=== PATIENT | male | born 1940 | race Caucasian/White ===

== ENCOUNTER → 2016-10-14 | Day surgery (SDC) | payer MEDICARE, BC ==
[2016-10-10 10:53] VITALS: BMI 32.7
[~2016-10-14] MED LIST: LACTATED RINGERS 1,000 ML IV SCH; LIDOCAINE 1% INJ 10MG/ML (20 ML MDV) ONE; PROPOFOL 10 MG/ML 20 ML VIAL IV ONE; SODIUM CHLORIDE 0.9% 1,000 ML IV SCH; SODIUM CHLORIDE 0.9% 500 ML IV ONE; fentaNYL (PF) 50 MCG/ML 2 ML AMP ONE
[2016-10-14 06:55] LABS: Glucose,Whole Blood 116 mg/dL (75-99)
[2016-10-14 07:51] VITALS: TEMP 98
[2016-10-14 08:15] LABS: Glucose,Whole Blood 123 mg/dL (75-99)
[2016-10-14 09:47] VITALS: PULSE 70; RESP 20
[2016-10-14 10:05] VITALS: BP 158/77
--- NOTE | 2016-10-14 16:51 | PCN ---
DATE OF PROCEDURE: 10/14/2016 PROCEDURE: Electrical cardioversion. INDICATION: Persistent atrial fibrillation, unresponsive to pharmacological efforts. Under the influence of an [id number] intravenous anesthetic agent with the attendance of the anesthesiologist, two synchronized shocks were delivered to the chest wall and anterior and posterior patches. First was 200 joules and second was 250 joules. Patient remained in atrial fibrillation and did not convert to sinus rhythm. He was hemodynamically stable, neurologically intact. This was unsuccessful electrical cardioversion. The results were discussed with the patient and his . He will be discharged later on today, and we will pursue rate control and anticoagulation. JEANNE
== END ==
LOC: CATHCVL 06:15
PROVIDERS: ATTEND Internal Medicine Interventional Cardiology
DX: I48.1 Persistent atrial fibrillation (principal); I25.10 Atherosclerotic heart disease of native coronary artery without angina pectoris; Z95.5 Presence of coronary angioplasty implant and graft; E78.00 Pure hypercholesterolemia, unspecified; I10 Essential (primary) hypertension; J44.9 Chronic obstructive pulmonary disease, unspecified; E11.9 Type 2 diabetes mellitus without complications; Z82.49 Family history of ischemic heart disease and other diseases of the circulatory system; Z79.01 Long term (current) use of anticoagulants; Z79.84 Long term (current) use of oral hypoglycemic drugs; Z79.82 Long term (current) use of aspirin; Z79.4 Long term (current) use of insulin; Z79.899 Other long term (current) drug therapy; Z87.891 Personal history of nicotine dependence; E66.9 Obesity, unspecified; Z68.31 Body mass index [BMI] 31.0-31.9, adult
CPT/HCPCS: 93005; 92960; J2001; J3010; J2704

== ENCOUNTER → 2016-11-07 | Outpatient (CLI) | payer MEDICARE, BC ==
--- NOTE | 2016-11-07 11:15 | XR ---
EXAMINATION TYPE: XR chest 2V DATE OF EXAM: 11/07/2016 COMPARISON: NONE HISTORY: Preoperative examination for back surgery. TECHNIQUE: Frontal and lateral views of the chest are obtained. FINDINGS: There is no focal air space opacity, pleural effusion, or pneumothorax seen. Linear platel mac subsegmental left basilar atelectasis versus pleural parenchymal scarring is seen. The cardiac si lhouette size is within normal limits. The osseous structures are intact. Mild degenerative change of the thoracic spine is noted. IMPRESSION: No acute cardiopulmonary process.
[2016-11-07 11:16] LABS: Appearance,Urine Clear (Clear); Bacteria,Urine Occasional /hpf; Basophils # (A) 0.1 k/uL (0-0.2); Basophils % (A) 1 %; Bilirubin,Urine Negative (Negative); CH 27.9; CHCM 32.3; Eosinophils # (A) 0.5 k/uL (0-0.7); Eosinophils % (A) 7 %; Glucose,Urine (UA) Negative (Negative); HCT 45.5 % (39.0-53.0); HDW 2.46; HGB 14.9 gm/dL (13.0-17.5); Ketones,Urine Negative (Negative); Leukocyte Esterase,Urine Small (Negative); Luc # (Auto) 0.22; Luc % (Auto) 3; Lymphocytes # (A) 1.9 k/uL (1.0-4.8); Lymphocytes % (A) 23 %; MCH 28.3 pg (25.0-35.0); MCHC 32.7 g/dL (31.0-37.0); MCV 86.5 fL (80.0-100.0); Mean Platelet Volume 7.1; Monocytes # (A) 0.5 k/uL (0-1.0); Monocytes % (A) 7 %; Mucus,Urine Rare /hpf; Neutrophils # (A) 4.8 k/uL (1.3-7.7); Neutrophils % (A) 60 %; Nitrite,Urine Negative (Negative); PH, Urine 6.5 (5.0-8.0); Particle Count 834; Protein,Urine Trace (Negative); RBC 5.26 m/uL (4.30-5.90); RBC,Urine 10 /hpf (0-5); RDW 13.6 % (11.5-15.5); Specific Gravity,Urine 1.018 (1.001-1.035); Squamous Epithelial Cell,Urine 2 /hpf (0-4); UA Billing (MACRO vs. MICRO) MICRO; Urobilinogen,Urine <2.0 mg/dL (<2.0); WBC (Perox) 8.61; WBC,Urine 14 /hpf (0-5)
[2016-11-07 11:33] LABS: INR 3.3 (<1.2); Partial Thromboplastin Time 30.9 sec (22.0-30.0); Prothrombin Time 31.7 sec (9.0-12.0)
[2016-11-07 11:48] LABS: Anion Gap 11 mmol/L; Blood Urea Nitrogen 24 mg/dL (9-20); Calcium 9.2 mg/dL (8.4-10.2); Carbon Dioxide 30 mmol/L (22-30); Chloride 97 mmol/L (98-107); Glucose 136 mg/dL (74-99); Non-African American GFR(MDRD) >60 (>60 ml/min/1.73 sqM); Potassium 3.6 mmol/L (3.5-5.1); Sodium 138 mmol/L (137-145)
== END | disposition home or self-care (01) ==
LOC: LABPAT 10:07
PROVIDERS: ATTEND Orthopaedic Surgery Orthopaedic Surgery of the Spine
DX: Z01.818 Encounter for other preprocedural examination (principal); M48.06 Spinal stenosis, lumbar region; M54.5 Low back pain; Z51.81 Encounter for therapeutic drug level monitoring; Z79.01 Long term (current) use of anticoagulants
CPT/HCPCS: 71020; 80048; 81001; 85025; 85610; 85730

== ENCOUNTER 2016-11-21 10:55 | Day surgery (SDC) | payer MEDICARE, BC ==
[2016-11-11 17:12] VITALS: BMI 32.7
[~2016-11-21 10:55] MED LIST changes: +BACITRACIN 50,000 UNIT, POLYMYXIN B 500,000 UNIT in SODIUM CHLORIDE 0.9% IRRIGATIO 1,00... IRRIGATION ONE; +DEXAMETHASONE SOD PHOSPHATE 10 MG/ML 1 ML VIAL IV ONE; -LACTATED RINGERS 1,000 ML IV SCH; +LIDOCAINE 1% 20 ML VIAL (10MG/ML) FOR IV START INTRADERMA PRN; -LIDOCAINE 1% INJ 10MG/ML (20 ML MDV) ONE; +MIDAZOLAM 2 MG/2 ML VIAL IV PRN; +ONDANSETRON 4 MG/2 ML VIAL IVP ONE; -PROPOFOL 10 MG/ML 20 ML VIAL IV ONE; +SCOPOLAMINE 1.5MG/72HR PATCH TRANSDERM ONE; -SODIUM CHLORIDE 0.9% 1,000 ML IV SCH; -SODIUM CHLORIDE 0.9% 500 ML IV ONE; +ceFAZolin 2 GM in SODIUM CHLORIDE 0.9% 100 ML IVPB ONE; -fentaNYL (PF) 50 MCG/ML 2 ML AMP ONE
[2016-11-21] MEDS: LACTATED RINGERS 1,000 ML IV SCH (11:40)
[2016-11-21 11:41] LABS: Glucose,Whole Blood 202 mg/dL (75-99)
[2016-11-21 11:53] LABS: INR 1.1 (<1.2); Prothrombin Time 11.3 sec (9.0-12.0)
[2016-11-21] MEDS ORDERED: NEOSTIGMINE 1 MG/ML 10 ML VIAL ONE (13:33)
[2016-11-21] MEDS ORDERED: THROMBIN (BOVINE) 5,000 UNIT VIAL TOPICAL ONE (13:33)
[2016-11-21] MEDS ORDERED: PROPOFOL 10 MG/ML 20 ML VIAL IV ONE (13:33)
[2016-11-21] MEDS ORDERED: GELATIN SPONGE,ABSORB (LARGE) 1 EACH SPONGE TOPICAL ONE (13:33)
[2016-11-21] MEDS ORDERED: BUPIVACAINE (PF) 0.5% 30 ML VIAL SQ ONE (13:33)
[2016-11-21] MEDS ORDERED: MORPHINE SULFATE 10 MG/ML SYRINGE ONE (13:33)
[2016-11-21] MEDS ORDERED: MIDAZOLAM 2 MG/2 ML VIAL ONE (13:33)
[2016-11-21] MEDS ORDERED: GLYCOPYRROLATE 0.2 MG/ML 2 ML VIAL ONE (13:33)
[2016-11-21] MEDS ORDERED: PHENYLEPHRINE-0.9% NACL SYG 1 MG/10 ML SYRINGE ONE (13:33)
[2016-11-21] MEDS ORDERED: LIDOCAINE 0.5% (PF) 5 MG/ML (50 ML SDV) SQ ONE (13:33)
[2016-11-21] MEDS ORDERED: ROCURONIUM BROMIDE 10 MG/ML 10 ML VIAL IV ONE (13:33)
[2016-11-21] MEDS ORDERED: ePHEDrine SULFATE/0.9% NACL/PF 50 MG/5 ML SYRINGE IV ONE (13:33)
[2016-11-21] MEDS ORDERED: LIDOCAINE 1% INJ 10MG/ML (20 ML MDV) ONE (13:33)
[2016-11-21] MEDS ORDERED: fentaNYL (PF) 50 MCG/ML 2 ML AMP ONE (13:33)
[2016-11-21] MEDS ORDERED: LACTATED RINGERS 1,000 ML IV ONE (14:45)
[2016-11-21] MEDS ORDERED: methylPREDNISolone ACETATE 80 MG/ML 1 ML VIAL MISCELLANE ONE (15:27)
[2016-11-21] MEDS ORDERED: BENZOCAINE/MENTHOL LOZENG 1 EACH LOZENGE MUCOUS MEM PRN (15:41)
[2016-11-21] MEDS ORDERED: MAGNESIUM HYDROXIDE 2,400 MG/10 ML CUP PO PRN (15:41)
[2016-11-21] MEDS ORDERED: HYDROmorphone 0.5 MG/0.5 ML SYRINGE IVP PRN (15:41)
[2016-11-21] MEDS ORDERED: HYDROcodone/APAP 5-325MG 1 EACH TAB PO PRN (15:42)
[2016-11-21] MEDS ORDERED: hydrOXYzine HCL 10 MG TAB PO PRN (15:44)
[2016-11-21] MEDS ORDERED: ALBUTEROL NEBULIZED 2.5 MG/3 ML INHALATION PRN (15:44)
[2016-11-21] MEDS ORDERED: IPRATROPIUM-ALBUTEROL 3 ML NEB INHALATION PRN (15:44)
[2016-11-21] MEDS ORDERED: INSULIN LISPRO (humaLOG) 300 UNIT/3 ML VIAL SQ PRN (15:44)
[2016-11-21] MEDS ORDERED: PANTOPRAZOLE 40 MG TABLET PO PRN (15:44)
--- NOTE | 2016-11-21 15:54 | P.OP ---
Date of Procedure: 11/21/16 Preoperative Diagnosis: Herniated nucleus pulposis L4 5, spinal stenosis L4 5, neurogenic claudication, lower extremity radiculopathy Postoperative Diagnosis: Same Anesthesia: GETA Pathology: none sent Condition: stable Disposition: PACU Description of Procedure: BRIEF OPERATIVE NOTE Preoperative Diagnosis: Spinal stenosis L4 5, herniated nucleus pulposis L4 5, neurogenic claudication, lower extremity radiculopathy Postoperative Diagnosis: Same Procedure: Laminectomy and decompression bilaterally L4 5 Discectomy for decompression L4 5 Use of fluoroscopic guidance Surgeon: Dr. Santiago Automation Technologist: Konstantin Romero is present throughout the entire the case persistence during positioning, dissection, exposure, visualization, and all crucial elements of the case as well as closure. Anesthesia: General anesthesia Estimated blood loss: Approximately 100 mL Complications: None apparent Components implanted: Paradigm Coflex interlaminar stabilization device 10 mm Disposition: To recovery room in good stable condition. OPERATIVE INDICATIONS The patient has been having issues in their lower back and lower extremities. He was having evidence of neurogenic claudication and spinal stenosis along with issues with lower extremity radiculopathy. He was found to have significant spinal stenosis at L4 5 with a herniated nucleus pulposis L4 5 which correlated well with his low back and lower extremity symptoms. The patient has been through conservative treatment. With his imaging the level of his stenosis and his propensity for the possibility of recurrent stenosis I felt that decompression with intralaminar stabilization would be a good benefit for him. We discussed various treatment options including surgery, and the patient wishes to proceed with surgery We discussed the risk, patient's alternatives and benefits of surgery including but not limited to, risk of bleeding risk of infection, risk of need for further surgery, risk of decreased , loss of motion, loss of function, nerve damage, paralysis, heart attack, blindness and . OPERATIVE SUMMARY After discussing all the risks, patient alternatives and benefits at length, the patient elected to proceed with surgical intervention, signed informed consent, and presented for their procedure. The patient was seen and examined in the preoperative holding area and the surgical site was marked. The patient was given antibiotics and brought to the operating room. The patient was sedated and intubated by anesthesia in standard fashion. The patient was positioned on to the operating room table in a prone position on the appropriate frame which was well-padded and well molded. We were careful to pad any bony prominences and pressure points. We were careful to maintain the patient's cervical spine and good neutral alignment and position throughout. The patient was prepped and draped in a normal standard fashion. An appropriate timeout and keystone protocol performed. We were able to proceed with the surgery. Fluoroscopy was utilized to establish the appropriate level at L4 5. The local wound area was infiltrated with local anesthetic. An incision was made at the midline longitudinally over the appropriate levels at L4 5. Dissection was taken down subcutaneously to the level of the fascia which was split midline. Dissection was taken over the lamina. Intraoperative fluoroscopy was taken which showed a marker at the appropriate level at L4 5. With the appropriate level positively confirmed, we were able to proceed with laminectomy. The wound was copiously irrigated and suctioned dry as had been done periodically throughout the case. I performed a laminectomy with a combination of curettes and a high-speed bur and Kerrison rongeurs. A small medial facetectomy was performed again further access. This was done bilaterally at L4 5. A partial foraminotomy was also performed on the right. Portions of the ligamentum flavum were taken down to expose the dura and traversing nerve root. I was able to mobilize the traversing nerve root and gain access to the disc space. Note was made of obvious compression from the disc. Protecting the soft tissue structures, a small annulotomy was established. I was able to perform discectomy and remove any extruded disc fragments and any loose fragments from within the disc itself. There is some disc desiccation noted. I tried to preserve the disc annulus that appeared stable. There were no further extruded fragments noted. There is no evidence of dural tear or leak. Good hemostasis maintained. The wound was copiously irrigated and suctioned dry. Good decompression and discectomy was noted. At this point further prepared the interspinous process and interlaminar space with a combination of curettes and a high-speed bur and Kerrison rongeurs. As able get good parallel alignment at the interspinous process space and interlaminar space. I used a trial spacer for the Coflex device and have good fit and fill with the appropriate size device at 10 mm. I had to shave down the spinous process at L4 to allow for appropriate positioning of the Coflex device. The device was prepared and then positioned and malleted in position with good alignment and good position and good bony purchase at the interlaminar space. The position was checked and found to be approximately 3-4 mm away from the dura without impingement on the dura itself. It was checked and found to be stable. Intraoperative C-arm was utilized to confirm the alignment and position at the appropriate levels. We were able to proceed with closure. The fascia was closed for a watertight closure. The subcuticular tissue was closed with absorbable suture. The wound was cleaned and dried and dressed with the appropriate dressing. The drapes were broken down. The patient was gently rolled back onto their hospital bed being careful to maintain their cervical spine and good neutral alignment and position. They were woken up by anesthesia, extubated, and brought to the recovery room in good stable condition. The patient will be admitted to the hospital for observation and for appropriate postoperative care, medical management and monitoring. We will continue to follow them closely about the postoperative course.
[2016-11-21 16:27] LABS: Glucose,Whole Blood 148 mg/dL (75-99)
[2016-11-21] MEDS: HYDROmorphone 1 MG/ML 1 ML SYRINGE IVP PRN ×2 (16:33→17:29)
--- NOTE | 2016-11-21 17:45 | FL ---
EXAMINATION TYPE: FL guidance operating room, XR lumbar spine 2 or 3V DATE OF EXAM: 11/21/2016 COMPARISON: NONE HISTORY: 76-year-old male lumbar laminectomy FINDINGS: Images obtained intraoperatively during laminectomy with some metal hardware placed along the posteri or elements at L4-L5. FLUOROSCOPY Fluoroscopy time of 9 seconds was used during lumbar laminectomy. 5 image/s document/s the procedure . IMPRESSION: Intraoperative fluoroscopy as above.
[2016-11-21] MEDS: SODIUM CHLORIDE 0.9% 1,000 ML IV SCH (20:47)
[2016-11-21] MEDS: metFORMIN 500 MG TAB PO SCH (20:56)
[2016-11-21] MEDS: METHADONE 5 MG TAB PO SCH (20:57)
[2016-11-21] MEDS: METOPROLOL TARTRATE 25 MG TAB PO SCH (20:57)
[2016-11-21] MEDS: GABAPENTIN 100 MG CAP PO SCH (20:58)
[2016-11-21] MEDS: ceFAZolin 2 GM in SODIUM CHLORIDE 0.9% 100 ML IVPB SCH (20:59)
[2016-11-21] MEDS ORDERED: LISINOPRIL 20 MG TAB PO SCH (21:00)
[2016-11-21] MEDS ORDERED: amLODIPine 10 MG TAB PO SCH (21:00)
[2016-11-21] MEDS ORDERED: CHLORTHALIDONE 25 MG TAB PO SCH (21:00)
[2016-11-21] MEDS ORDERED: ASPIRIN 81 MG PO SCH (21:00)
[2016-11-21] MEDS ORDERED: MONTELUKAST 10 MG TAB PO SCH (21:00)
[2016-11-21] MEDS ORDERED: ATORVASTATIN 10 MG TAB PO SCH (21:00)
[2016-11-21] MEDS: HYDROcodone/APAP 5-325MG 1 EACH TAB PO PRN (22:28)
[2016-11-22] MEDS: ceFAZolin 2 GM in SODIUM CHLORIDE 0.9% 100 ML IVPB SCH (04:21)
[2016-11-22] MEDS: HYDROcodone/APAP 5-325MG 1 EACH TAB PO PRN ×2 (04:24→09:00)
[2016-11-22] MEDS: SODIUM CHLORIDE 0.9% 1,000 ML IV SCH (05:34)
[2016-11-22] MEDS: LACTATED RINGERS 1,000 ML IV SCH (05:35)
[2016-11-22 07:12] LABS: Glucose,Whole Blood 204 mg/dL (75-99)
[2016-11-22 08:47] LABS: Glucose,Whole Blood 278 mg/dL (75-99)
--- NOTE | 2016-11-22 08:51 | P.DS ---
Providers Date of admission: 11/21/2016 Expected date of discharge: 11/22/16 Attending physician: Carolina Santiago Consults: 11/21/16 15:42 Consult Physician Routine Consulting Provider: Ephraim Underwood Consult Reason/Comments: Medical management Do you want consulting provider notified?: Yes Primary care physician: Yosvany Escalona - Discharge Diagnosis(es) (1) Lumbar spinal stenosis Current Visit: Yes Status: Acute (2) Neurogenic claudication Current Visit: Yes Status: Acute (3) Radiculopathy with lower extremity symptoms Current Visit: Yes Status: Acute (4) Herniated nucleus pulposus, L4-5 Current Visit: Yes Status: Acute Hospital Course: This is a pleasant 76-year-old male who presented with L4-5 herniated nucleus pulposus and spinal stenosis with neurogenic claudication and lower extremity radiculopathy who failed outpatient conservative therapy. He was admitted for an L4-5 lateral laminectomy and decompression with discectomy and placement of interlaminar stabilization device. Patient was experiencing significant right lower extremity radiculopathy prior to surgical intervention. He states his right lower extremity leg pain has already significantly improved. He is able to stand at the bedside without difficulty. He is moving well in the bed. He is waiting for therapy to help work with him to increase his mobility today. He feels he is recovering quite well postsurgically and feels he is ready for discharge. He has some soreness at the surgical site and states his back pain has been controlled. The patient tolerated the procedure well and did well postoperatively. Condition on day of discharge stable. Patient will be discharged home. Patient was cleared preoperatively for surgery by Dr. Escalona. Patient currently denies any nausea, vomiting, fever, or chills. Patient is eating and voiding freely without difficulty. Patient may shower Tegaderm dressing intact. Patient may remove Tegaderm dressing in 3 days and shower without a dressing at that time. Patient should keep Steri-Strips intact and allow them to fall off naturally. Patient should refrain from driving until at least after their first follow-up appointment in the office. Patient should avoid excessive bending, lifting, and twisting; no lifting greater than 10 pounds. Patient is currently under a pain contract and may continue with methadone as previously prescribed. He may resume all other home medications as per he prescribed. Physical Exam on day of discharge: Patient is awake, alert, and oriented 3 Vital signs stable Good chest excursion with deep inspiration and expiration Abdomen soft nontender No signs or symptoms of DVT; no calf pain Pneumatic cuffs intact bilateral lower extremities Extensor hallucis longus, plantarflexion, and dorsiflexion positive sustained bilateral lower extremities Pain with palpation around the surgical site Incision is dry and intact; no erythema, purulence, or signs of infection; no active drainage Tegaderm dressing and non-stick Telfa intact; Dressing is removed replaced with Tegaderm and nonstick Telfa during physical examination Procedures: L4-5 laminectomy and decompression with discectomy and placement of interlaminar device Patient Condition at Discharge: Stable Plan - Discharge Summary New Discharge Prescriptions: No Action Warfarin [Coumadin] 7.5 mg PO MOTHSA metFORMIN HCL 1,000 mg PO BID Aspirin 162 mg PO HS INSULIN LISPRO (humaLOG) [humaLOG (formulary)] 10 units SQ PCHS PRN PRN Reason: Blood Sugar > 200 hydrOXYzine HCL [Atarax] 10 mg PO BID PRN PRN Reason: Itching Lovastatin [Mevacor] 20 mg PO HS Methadone [Dolophine] 5 mg PO TID Montelukast Sodium [Singulair] 10 mg PO HS Omeprazole [PriLOSEC] 20 mg PO W/SUPPER PRN PRN Reason: GERD Insulin Degludec [Tresiba Flextouch U-100] 28 unit SQ QAM Gabapentin [Neurontin] 200 mg PO BID Warfarin [Coumadin] 5 mg PO SUTUWEFR Chlorthalidone 25 mg PO HS amLODIPine BESYLATE [Norvasc] 10 mg PO HS Lisinopril [Zestril] 40 mg PO HS Vitamin E (Dl,Tocopheryl Acet) [Vitamin E] 400 unit PO 1200 Vits A,C,E/Lutein/Minerals [Ocuvite with Lutein Tablet] 1 each PO DAILY@1200 Multivitamins, Thera [Multivitamin (formulary)] 1 tab PO DAILY Sertraline [Zoloft] 100 mg PO DAILY Albuterol Sulfate [Proair Hfa] 2 puff INHALATION BID PRN PRN Reason: sob Ipratropium-Albuterol Nebulize [Duoneb 0.5 mg-3 mg/3 ml Soln] 1 applic INHALATION DAILY PRN PRN Reason: sob Cyanocobalamin (Vitamin B-12) [Vitamin B-12] 1,200 mcg PO DAILY Metoprolol Tartrate [Lopressor] 75 mg PO BID Liraglutide [Victoza 2-Garry] 1.8 mg SQ DAILY Discharge Medication List Aspirin 162 mg PO HS 11/26/13 [History] INSULIN LISPRO (humaLOG) [humaLOG (formulary)] 10 units SQ PCHS PRN 11/26/13 [ History] Lovastatin [Mevacor] 20 mg PO HS 11/26/13 [History] Methadone [Dolophine] 5 mg PO TID 11/26/13 [History] Montelukast Sodium [Singulair] 10 mg PO HS 11/26/13 [History] Warfarin [Coumadin] 7.5 mg PO MOTHSA 11/26/13 [History] hydrOXYzine HCL [Atarax] 10 mg PO BID PRN 11/26/13 [History] metFORMIN HCL 1,000 mg PO BID 11/26/13 [History] Albuterol Sulfate [Proair Hfa] 2 puff INHALATION BID PRN 10/10/16 [History] Chlorthalidone 25 mg PO HS 10/10/16 [History] Gabapentin [Neurontin] 200 mg PO BID 10/10/16 [History] Insulin Degludec [Tresiba Flextouch U-100] 28 unit SQ QAM 10/10/16 [History] Ipratropium-Albuterol Nebulize [Duoneb 0.5 mg-3 mg/3 ml Soln] 1 applic INHALATION DAILY PRN 10/10/16 [History] Lisinopril [Zestril] 40 mg PO HS 10/10/16 [History] Multivitamins, Thera [Multivitamin (formulary)] 1 tab PO DAILY 10/10/16 [History ] Omeprazole [PriLOSEC] 20 mg PO W/SUPPER PRN 10/10/16 [History] Sertraline [Zoloft] 100 mg PO DAILY 10/10/16 [History] Vitamin E (Dl,Tocopheryl Acet) [Vitamin E] 400 unit PO 1200 10/10/16 [History] Vits A,C,E/Lutein/Minerals [Ocuvite with Lutein Tablet] 1 each PO DAILY@1200 [History] Warfarin [Coumadin] 5 mg PO SUTUWEFR 10/10/16 [History] amLODIPine BESYLATE [Norvasc] 10 mg PO HS 10/10/16 [History] Cyanocobalamin (Vitamin B-12) [Vitamin B-12] 1,200 mcg PO DAILY 11/11/16 [ History] Liraglutide [Victoza 2-Garry] 1.8 mg SQ DAILY 11/11/16 [History] Metoprolol Tartrate [Lopressor] 75 mg PO BID 11/11/16 [History] Follow up Appointment(s)/Referral(s): Carolina Santiago DO [Doctor of Osteopathic Medicine] - 2 Weeks (Patient may follow-up with Konstantin Rosas PA-C or Dr. Fitz Santiago at [facility] in 2-3 weeks following discharge. ) Activity/Diet/Wound Care/Special Instructions: 1. Patient may shower with Tegaderm dressing intact. 2. Patient may remove Tegaderm dressing in 3 days and shower without a dressing at that time. 3. Patient should keep Steri-Strips intact and allow them to fall off naturally. 4. Patient should refrain from driving until at least after their first follow- up appointment in the office. 5. Patient should avoid excessive bending, twisting, and lifting; no lifting greater than 10 pounds 6. Take medications as prescribed 7. Do not soak in tub Discharge Disposition: HOME SELF-CARE
[2016-11-22] MEDS ORDERED: SERTRALINE 100 MG TAB PO SCH (09:00)
[2016-11-22] MEDS ORDERED: NON-FORMULARY DRUG (Liraglutide [Victoza 2-Pak] 1.8 MG) SQ SCH (09:00)
[2016-11-22] MEDS ORDERED: INSULIN DETEMIR 100 UNIT/ML 10 ML VIAL SQ SCH (09:00)
[2016-11-22] MEDS ORDERED: SENNOSIDES-DOCUSATE SODIUM 1 EACH TAB PO SCH (09:00)
[2016-11-22] MEDS: GABAPENTIN 100 MG CAP PO SCH (09:17)
[2016-11-22] MEDS: metFORMIN 500 MG TAB PO SCH (09:18)
[2016-11-22] MEDS: METHADONE 5 MG TAB PO SCH (09:21)
[2016-11-22] MEDS: METOPROLOL TARTRATE 25 MG TAB PO SCH (09:25)
[2016-11-22 11:32] LABS: Glucose,Whole Blood 278 mg/dL (75-99)
[2016-11-22 11:34] VITALS: BP 112/70; PULSE 76; RESP 17; TEMP 97.8
[2016-11-22] MEDS ORDERED: VITAMIN E (DL,TOCOPHERYL ACET) 400 UNIT CAP PO SCH (12:00)
[2016-11-22] MEDS ORDERED: MULTIVITAMINS, THERA 1 EACH TAB PO SCH (12:00)
[2016-11-22] MEDS ORDERED: CYANOCOBALAMIN 500 MCG TAB PO SCH (12:00)
[2016-11-22] MEDS ORDERED: VIT A,C & E-LUTEIN-MINERALS 1 EACH TAB PO SCH (12:00)
[2016-11-22] MEDS ORDERED: WARFARIN 5 MG TAB PO SCH (18:00)
[2016-11-24] MEDS ORDERED: WARFARIN 7.5 MG TAB PO SCH (18:00)
== END 2016-11-22 13:15 | disposition home or self-care (01) ==
LOC: OR 10:55 → 3SUR 18:28 → OR 11-22 13:15
PROVIDERS: ATTEND Orthopaedic Surgery Orthopaedic Surgery of the Spine
DX: M51.16 Intervertebral disc disorders with radiculopathy, lumbar region (principal); M48.06 Spinal stenosis, lumbar region; I10 Essential (primary) hypertension; E78.5 Hyperlipidemia, unspecified; E11.9 Type 2 diabetes mellitus without complications; Z79.84 Long term (current) use of oral hypoglycemic drugs; Z79.4 Long term (current) use of insulin; Z95.5 Presence of coronary angioplasty implant and graft; Z87.891 Personal history of nicotine dependence; Z79.2 Long term (current) use of antibiotics; Z79.01 Long term (current) use of anticoagulants; Z79.899 Other long term (current) drug therapy; Z88.2 Allergy status to sulfonamides
CPT/HCPCS: 63047; 97161; 85610; 72100; C1713; J2250; J1040; J2710; J2270; J0690 ×2; J2405; J2001 ×2; J3010; J1170; S0109 ×2; J2370; J2704; 86850; 86900; 86901

== ENCOUNTER 2017-07-08 12:38 | Inpatient (IN) | payer MEDICARE, BC ==
[2017-07-08] MEDS ORDERED: IPRATROPIUM-ALBUTEROL 3 ML NEB INHALATION STA (13:12)
[2017-07-08] MEDS ORDERED: SODIUM CHLORIDE 0.9% 1,000 ML IV STA (13:12)
[2017-07-08] MEDS ORDERED: methylPREDNISolone SOD SUCCI 125 MG/2 ML VIAL IV STA (13:12)
--- NOTE | 2017-07-08 13:21 | ED ---
SOB HPI - General Chief Complaint: Shortness of Breath Stated Complaint: SOB Time Seen by Provider: 07/08/17 13:00 Source: patient, family, RN notes reviewed Mode of arrival: wheelchair Limitations: no limitations - History of Present Illness Initial Comments: This is a 76-year-old male with a history of asthma who is brought in because of shortness of breath he has been on antibiotics for sinus infection since eighth of this month he's had a cough with dark brown phlegm he is getting worse not better. He was seen at the outpatient clinic today and sent here for further evaluation. He denies any fevers chills or sweats but was noted be febrile when he arrived. He denies any chest pain sore throat earaches rhinorrhea. MD Complaint: shortness of breath - Related Data Home Medications Medication Instructions Recorded Confirmed Aspirin 162 mg PO HS 11/26/13 07/08/17 INSULIN LISPRO (humaLOG) [humaLOG] 10 units SQ PC-TID 11/26/13 07/08/17 Lovastatin [Mevacor] 20 mg PO HS 11/26/13 07/08/17 Methadone [Dolophine] 5 mg PO Q8H 11/26/13 07/08/17 Montelukast Sodium [Singulair] 10 mg PO HS 11/26/13 07/08/17 hydrOXYzine HCL [Atarax] 10 mg PO TID 11/26/13 07/08/17 metFORMIN HCL 1,000 mg PO BID 11/26/13 07/08/17 Ipratropium-Albuterol Nebulize 3 ml INHALATION RT-TID PRN 10/10/16 07/08/17 [Duoneb 0.5 mg-3 mg/3 ml Soln] Multivitamins, Thera [Multivitamin 1 tab PO DAILY 10/10/16 07/08/17 (formulary)] Omeprazole [PriLOSEC] 20 mg PO BID 10/10/16 07/08/17 Sertraline [Zoloft] 100 mg PO DAILY 10/10/16 07/08/17 Vitamin E (Dl,Tocopheryl Acet) 400 unit PO 1200 10/10/16 07/08/17 [Vitamin E] Vits A,C,E/Lutein/Minerals 1 tab PO DAILY 10/10/16 07/08/17 [Ocuvite with Lutein Tablet] amLODIPine BESYLATE [Norvasc] 5 mg PO HS 10/10/16 07/08/17 Cyanocobalamin (Vitamin B-12) 1,000 mcg PO DAILY 11/11/16 07/08/17 [Vitamin B-12] Metoprolol Tartrate [Lopressor] 50 mg PO BID 11/11/16 07/08/17 Amoxicillin 875 mg PO BID 07/08/17 07/08/17 Estazolam 1 mg PO DAILY PRN 07/08/17 07/08/17 Fluticasone Nasal [place] [Flonase 2 spray EA NOSTRIL DAILY 07/08/17 07/08/17 Nasal [place]] Insulin Glargine,Hum.rec.anlog 30 unit SQ DAILY 07/08/17 07/08/17 [Toujeo Solostar] Liraglutide [Victoza 2-Garry] 0.6 mg SQ DAILY 07/08/17 07/08/17 Lisinopril 40 mg PO DAILY 07/08/17 07/08/17 Metoprolol Tartrate [Lopressor] 25 mg PO BID 07/08/17 07/08/17 Nitroglycerin Sl Tabs [Nitrostat] 0.4 mg SUBLINGUAL Q5M PRN 07/08/17 07/08/17 Temazepam [Restoril] 15 mg PO HS 07/08/17 07/08/17 Testosterone Cypionate 200 mg IM Q14D 07/08/17 07/08/17 [Depo-Testosterone] Triamcinolone 0.1% Cream [Kenalog] 1 applicatio TOPICAL TID PRN 07/08/17 Warfarin Sodium [Coumadin] 4 mg PO DAILY 07/08/17 07/08/17 hydrALAZINE HCL [Apresoline] 25 mg PO BID 07/08/17 07/08/17 Allergies Allergy/AdvReac Type Severity Reaction Status Date / Time Sulfa (Sulfonamide Allergy Rash/Hives Verified 07/08/17 13:55 Antibiotics) Review of Systems ROS Statement: Those systems with pertinent positive or pertinent negative responses have been documented in the HPI. ROS Other: All systems not noted in ROS Statement are negative. Past Medical History Past Medical History: Atrial Fibrillation, Asthma, CVA/TIA, Diabetes Mellitus, Eye Disorder, Fibromyalgia, Hyperlipidemia, Hypertension, Musculoskeletal Disorder, Pneumonia Additional Past Medical History / Comment(s): Hiatal Hernia. Glaucoma. Rt sided weakness from stroke (2008). HERNIATED DISC, BACK PAIN. NEUROPATHY FEET. CARDIOVERSION 10/14/16 UNSUCCESSFUL. History of Any Multi-Drug Resistant Organisms: None Reported Past Surgical History: Heart Catheterization With Stent, Orthopedic Surgery Additional Past Surgical History / Comment(s): nasal/sinus surgery, rt elbow, cataracts. CARDIOVERSION 10/14/16. Past Anesthesia/Blood Transfusion Reactions: No Reported Reaction Date of Last Stent Placement:: 2001 Past Psychological History: Depression Smoking Status: Former smoker Past Alcohol Use History: None Reported Past Drug Use History: None Reported - Past Family History Mother Family Medical History: No Reported History Father Family Medical History: Cancer General Exam - General Exam Comments Initial Comments: This is a well-developed well-nourished awake alert male he is somewhat slow to respond this seems be residual from his stroke. Limitations: no limitations General appearance: alert Head exam: Present: atraumatic, normocephalic, normal inspection Eye exam: Present: normal appearance, PERRL, EOMI. Absent: scleral icterus, conjunctival injection, periorbital swelling ENT exam: Present: normal exam, mucous membranes moist Neck exam: Present: normal inspection. Absent: tenderness, meningismus, lymphadenopathy Respiratory exam: Present: decreased breath sounds, other (Scattered wheezes). Absent: respiratory distress, wheezes, rales, rhonchi, stridor Cardiovascular Exam: Present: tachycardia, irregular rhythm. Absent: systolic murmur, diastolic murmur, rubs, gallop, clicks GI/Abdominal exam: Present: soft, normal bowel sounds. Absent: distended, tenderness, guarding, rebound, rigid Extremities exam: Present: normal inspection, full ROM, normal capillary refill. Absent: tenderness, pedal edema, joint swelling, calf tenderness Back exam: Present: other (Mild kyphosis) Neurological exam: Present: alert, oriented X3, CN II-XII intact Psychiatric exam: Present: normal affect, normal mood Skin exam: Present: warm, intact, normal color, diaphoretic. Absent: rash Course Vital Signs 07/08/17 07/08/17 07/08/17 12:54 12:57 13:55 Temperature 98.6 F Pulse Rate 106 H 120 H Respiratory 18 24 Rate Blood Pressure 164/72 O2 Sat by Pulse 94 L Oximetry 07/08/17 07/08/17 07/08/17 13:57 14:04 14:20 Temperature 100.9 F H Pulse Rate 119 H 121 H Respiratory 22 Rate Blood Pressure 163/100 O2 Sat by Pulse 96 Oximetry 07/08/17 15:35 Temperature 98.7 F Pulse Rate 121 H Respiratory 20 Rate Blood Pressure O2 Sat by Pulse 97 Oximetry - Reevaluation(s) Reevaluation #1: 07/08/17 15:44 Reevaluation patient reveals some improvement in his breathing. Reevaluation #2: 07/08/17 15:44 I did discuss findings with patient family members. He does demonstrate evidence of pleural effusion and congestive heart failure. He also has febrile illness. Medical Decision Making - Medical Decision Making I did a long discussion with patient family regarding findings I did discuss case with Dr. Underwood patient will be admitted he will be placed on IV antibiotics in addition to treatment for congestive heart failure. There is elevated troponin also cardiology will be consulted - Lab Data Result diagrams: 07/08/17 13:30 07/08/17 13:30 Lab Results 07/08/17 07/08/17 07/08/17 Range/Units 13:30 13:30 13:30 WBC 10.2 (3.8-10.6) k/uL RBC 5.07 (4.30-5.90) m/uL Hgb 13.3 (13.0-17.5) gm/dL Hct 43.2 (39.0-53.0) % MCV 85.3 (80.0-100.0) fL MCH 26.3 (25.0-35.0) pg MCHC 30.9 L (31.0-37.0) g/dL RDW 13.5 (11.5-15.5) % Plt Count 309 (150-450) k/uL Neutrophils % 82 % Lymphocytes % 7 % Monocytes % 9 % Eosinophils % 1 % Basophils % 0 % Neutrophils # 8.4 H (1.3-7.7) k/uL Lymphocytes # 0.8 L (1.0-4.8) k/uL Monocytes # 0.9 (0-1.0) k/uL Eosinophils # 0.1 (0-0.7) k/uL Basophils # 0.0 (0-0.2) k/uL Hypochromasia Slight PT (9.0-12.0) sec INR (<1.2) APTT (22.0-30.0) sec Sodium 138 (137-145) mmol/L Potassium 3.8 (3.5-5.1) mmol/L Chloride 99 (98-107) mmol/L Carbon Dioxide 26 (22-30) mmol/L Anion Gap 13 mmol/L BUN 17 (9-20) mg/dL Creatinine 0.74 (0.66-1.25) mg/dL Est GFR (CKD-EPI)AfAm >90 (>60 ml/min/1.73 sqM) Est GFR (CKD-EPI)NonAf >90 (>60 ml/min/1.73 sqM) Glucose 280 H (74-99) mg/dL Plasma Lactic Acid Alan (0.7-2.0) mmol/L Calcium 8.9 (8.4-10.2) mg/dL Magnesium 1.6 (1.6-2.3) mg/dL Total Bilirubin 0.9 (0.2-1.3) mg/dL AST 30 (17-59) U/L ALT 33 (21-72) U/L Alkaline Phosphatase 76 (38-126) U/L Total Creatine Kinase 157 (55-170) U/L CK-MB (CK-2) 7.6 H* (0.0-2.4) ng/mL CK-MB (CK-2) Rel Index 4.8 Troponin I 1.050 H* (0.000-0.034) ng/mL NT-Pro-B Natriuret Pep pg/mL Total Protein 6.3 (6.3-8.2) g/dL Albumin 3.5 (3.5-5.0) g/dL Influenza Type A RNA (Not Detectd) Influenza Type B (PCR) (Not Detectd) 07/08/17 07/08/17 07/08/17 Range/Units 13:30 13:30 13:30 WBC (3.8-10.6) k/uL RBC (4.30-5.90) m/uL Hgb (13.0-17.5) gm/dL Hct (39.0-53.0) % MCV (80.0-100.0) fL MCH (25.0-35.0) pg MCHC (31.0-37.0) g/dL RDW (11.5-15.5) % Plt Count (150-450) k/uL Neutrophils % % Lymphocytes % % Monocytes % % Eosinophils % % Basophils % % Neutrophils # (1.3-7.7) k/uL Lymphocytes # (1.0-4.8) k/uL Monocytes # (0-1.0) k/uL Eosinophils # (0-0.7) k/uL Basophils # (0-0.2) k/uL Hypochromasia PT 39.3 H (9.0-12.0) sec INR 4.4 H (<1.2) APTT 40.2 H (22.0-30.0) sec Sodium (137-145) mmol/L Potassium (3.5-5.1) mmol/L Chloride (98-107) mmol/L Carbon Dioxide (22-30) mmol/L Anion Gap mmol/L BUN (9-20) mg/dL Creatinine (0.66-1.25) mg/dL Est GFR (CKD-EPI)AfAm (>60 ml/min/1.73 sqM) Est GFR (CKD-EPI)NonAf (>60 ml/min/1.73 sqM) Glucose (74-99) mg/dL Plasma Lactic Acid Alan 2.8 H* (0.7-2.0) mmol/L Calcium (8.4-10.2) mg/dL Magnesium (1.6-2.3) mg/dL Total Bilirubin (0.2-1.3) mg/dL AST (17-59) U/L ALT (21-72) U/L Alkaline Phosphatase (38-126) U/L Total Creatine Kinase (55-170) U/L CK-MB (CK-2) (0.0-2.4) ng/mL CK-MB (CK-2) Rel Index Troponin I (0.000-0.034) ng/mL NT-Pro-B Natriuret Pep 7420 pg/mL Total Protein (6.3-8.2) g/dL Albumin (3.5-5.0) g/dL Influenza Type A RNA (Not Detectd) Influenza Type B (PCR) (Not Detectd) 05/12/18 Range/Units 13:55 WBC (3.8-10.6) k/uL RBC (4.30-5.90) m/uL Hgb (13.0-17.5) gm/dL Hct (39.0-53.0) % MCV (80.0-100.0) fL MCH (25.0-35.0) pg MCHC (31.0-37.0) g/dL RDW (11.5-15.5) % Plt Count (150-450) k/uL Neutrophils % % Lymphocytes % % Monocytes % % Eosinophils % % Basophils % % Neutrophils # (1.3-7.7) k/uL Lymphocytes # (1.0-4.8) k/uL Monocytes # (0-1.0) k/uL Eosinophils # (0-0.7) k/uL Basophils # (0-0.2) k/uL Hypochromasia PT (9.0-12.0) sec INR (<1.2) APTT (22.0-30.0) sec Sodium (137-145) mmol/L Potassium (3.5-5.1) mmol/L Chloride (98-107) mmol/L Carbon Dioxide (22-30) mmol/L Anion Gap mmol/L BUN (9-20) mg/dL Creatinine (0.66-1.25) mg/dL Est GFR (CKD-EPI)AfAm (>60 ml/min/1.73 sqM) Est GFR (CKD-EPI)NonAf (>60 ml/min/1.73 sqM) Glucose (74-99) mg/dL Plasma Lactic Acid Alan (0.7-2.0) mmol/L Calcium (8.4-10.2) mg/dL Magnesium (1.6-2.3) mg/dL Total Bilirubin (0.2-1.3) mg/dL AST (17-59) U/L ALT (21-72) U/L Alkaline Phosphatase (38-126) U/L Total Creatine Kinase (55-170) U/L CK-MB (CK-2) (0.0-2.4) ng/mL CK-MB (CK-2) Rel Index Troponin I (0.000-0.034) ng/mL NT-Pro-B Natriuret Pep pg/mL Total Protein (6.3-8.2) g/dL Albumin (3.5-5.0) g/dL Influenza Type A RNA Not Detected (Not Detectd) Influenza Type B (PCR) Not Detected (Not Detectd) - EKG Data -: EKG Interpreted by Me (Atrial fibrillation rate of 138 QRS duration 106 QT since QTC of 300/454 le) - Radiology Data Radiology results: report reviewed (I did review the imaging is consistent with CHF and pleural effusion.), image reviewed Critical Care Time Critical Care Time: Yes Critical Care Time: 37 is a critical care time which includes monitoring the EMS run and discussed with paramedics history physical labs x-rays frequent reevaluation as the patient discussed with patient family discussion with the main physician documentation of the above as well as admission orders. Disposition Clinical Impression: Congestive heart failure, Acute pulmonary edema, Pleural effusion, Non-STEMI ( non-ST elevated myocardial infarction), Acute exacerbation of chronic obstructive airways disease, Rapid atrial fibrillation Disposition: ADMITTED IP TO THIS HOSP Condition: Stable Referrals: Yosvany Escalona MD [Primary Care Provider] - 1-2 days
[2017-07-08 13:42] LABS: Basophils % (A) 0 %; Eosinophils # (A) 0.1 k/uL (0-0.7); Eosinophils % (A) 1 %; HCT 43.2 % (39.0-53.0); HGB 13.3 gm/dL (13.0-17.5); Hypochromasia Slight; Lymphocytes # (A) 0.8 k/uL (1.0-4.8); Lymphocytes % (A) 7 %; MCH 26.3 pg (25.0-35.0); MCHC 30.9 g/dL (31.0-37.0); MCV 85.3 fL (80.0-100.0); Mean Platelet Volume 8.1; Monocytes # (A) 0.9 k/uL (0-1.0); Monocytes % (A) 9 %; Neutrophils # (A) 8.4 k/uL (1.3-7.7); Neutrophils % (A) 82 %; Platelet Count 309 k/uL (150-450); RBC 5.07 m/uL (4.30-5.90); RDW 13.5 % (11.5-15.5); WBC 10.2 k/uL (3.8-10.6)
[2017-07-08 13:51] LABS: INR 4.4 (<1.2); Partial Thromboplastin Time 40.2 sec (22.0-30.0); Prothrombin Time 39.3 sec (9.0-12.0)
--- NOTE | 2017-07-08 13:56 | XR ---
EXAMINATION TYPE: XR chest 2V DATE OF EXAM: 07/08/2017 HISTORY: difficulty breathing. REFERENCE: Outside films dated 07/08/2017. FINDINGS: The lungs are overinflated. The heart is mildly enlarged. There is vascular congestion and patchy opacities throughout both lungs. There is a small right effusion. IMPRESSION: 1. COPD. 2. CHANGES MOST CONSISTENT WITH CONGESTIVE HEART FAILURE. FOLLOW-UP TO RESOLUTION IS SUGGESTED.
[2017-07-08 14:05] LABS: ALT 33 U/L (21-72); AST 30 U/L (17-59); Albumin 3.5 g/dL (3.5-5.0); Alkaline Phosphatase 76 U/L (38-126); Anion Gap 13 mmol/L; Blood Urea Nitrogen 17 mg/dL (9-20); Calcium 8.9 mg/dL (8.4-10.2); Carbon Dioxide 26 mmol/L (22-30); Chloride 99 mmol/L (98-107); Glucose 280 mg/dL (74-99); Magnesium 1.6 mg/dL (1.6-2.3); Potassium 3.8 mmol/L (3.5-5.1); Sodium 138 mmol/L (137-145); Total Bilirubin 0.9 mg/dL (0.2-1.3); Total Protein 6.3 g/dL (6.3-8.2)
[2017-07-08 14:18] LABS: Creatine Kinase MB 7.6 ng/mL (0.0-2.4)
[2017-07-08 14:19] LABS: Troponin I 1.05 ng/mL (0.000-0.034)
[2017-07-08] MEDS ORDERED: METHADONE 5 MG TAB PO STA (14:19)
[2017-07-08] MEDS ORDERED: FUROSEMIDE 10 MG/ML 4 ML VIAL IV STA (15:26)
[2017-07-08] MEDS ORDERED: NITROGLYCERIN OINT 1 INCH/GM PACKET TOPICAL STA (15:26)
[2017-07-08] MEDS ORDERED: cefTRIAXone IN SWFI 1,000 MG/10 ML SYRINGE IVP STA (15:47)
[2017-07-08] MEDS ORDERED: ESTAZOLAM PO PRN (15:50)
[2017-07-08] MEDS ORDERED: NITROGLYCERIN SL TABS 0.4 MG TAB SUBLINGUAL PRN (15:50)
[2017-07-08] MEDS ORDERED: TRIAMCINOLONE 0.1% CREAM 80 GM TUBE TOPICAL PRN (15:50)
[2017-07-08] MEDS: DILTIAZEM 50 MG in SODIUM CHLORIDE 0.9% 40 ML IV ONE ×2 (16:09→21:31)
[2017-07-08] MEDS: IPRATROPIUM-ALBUTEROL 3 ML NEB INHALATION SCH ×3 (16:20→23:21)
[2017-07-08] MEDS: metFORMIN 500 MG TAB PO SCH (17:25)
[2017-07-08] MEDS: INSULIN ASPART 100 UNIT/ML 1 ML 10 ML VIAL SQ SCH (17:25)
[2017-07-08] MEDS: hydrOXYzine HCL 10 MG TAB PO SCH (17:26)
[2017-07-08 17:28] LABS: Glucose,Whole Blood 278 mg/dL (75-99)
[2017-07-08] MEDS ORDERED: NITROGLYCERIN OINT 1 INCH/GM PACKET TOPICAL SCH (18:00)
[2017-07-08] MEDS ORDERED: ONDANSETRON 4 MG/2 ML VIAL IVP PRN (18:22)
[2017-07-08] MEDS ORDERED: MAGNESIUM HYDROXIDE 2,400 MG/10 ML CUP PO PRN (18:22)
[2017-07-08] MEDS ORDERED: NALOXONE 0.4 MG/ML 1 ML VIAL IV PRN (18:22)
[2017-07-08] MEDS ORDERED: MELATONIN 3 MG TABLET PO PRN (18:22)
[2017-07-08] MEDS ORDERED: LACTULOSE 20 GM/30 ML CUP PO PRN (18:22)
[2017-07-08] MEDS ORDERED: CALCIUM CARBONATE 500 MG CHEWABLE PO PRN (18:22)
[2017-07-08] MEDS ORDERED: ACETAMINOPHEN TAB 325 MG TAB PO PRN (18:22)
[2017-07-08] MEDS: FUROSEMIDE 10 MG/ML 10 ML VIAL IV SCH ×2 (18:57→23:40)
--- NOTE | 2017-07-08 19:43 | HP ---
HISTORY AND PHYSICAL DATE OF ADMISSION: July 08, 2017. PRESENTING COMPLAINT: Short of breath, cough. HISTORY OF PRESENTING COMPLAINT: This is a 76-year-old very pleasant gentleman of Dr. Escalona here with his . Chronic stable medical conditions include diabetes, hypertension, hyperlipidemia, fibromyalgia, hiatal hernia, right-sided weakness from prior stroke. Herniated disc in the back, peripheral neuropathy, depression. The patient for 4 days has been having increasing amount of shortness of breath. Not much wheezing, cough with phlegm that initially white but then became more reddish. No obvious fever. Decreased appetite. The patient continued to get more and more short of breath, decided to present to the ER. The patient is found to be in atrial fibrillation with rapid ventricular rate, but was started on IV Cardizem. Troponin was 1. Cardiology was consulted from the ER. The patient known to fall, found to be in congestive heart failure. Started on IV Lasix. REVIEW OF SYSTEMS: Constitutional: Tired. HEENT: Decreased hearing. Respiratory as above. Cardiovascular as above. Gastrointestinal none. Genitourinary none. Musculoskeletal none. Dermatological, hematologic, lymphatics none. Psychiatry none. Neurological: Chronic right-sided weakness and peripheral neuropathy in the feet. PAST MEDICAL HISTORY: Of atrial fibrillation, asthma, stroke with right-sided weakness, diabetes, hypertension, hyperlipidemia, fibromyalgia, hiatal hernia, herniated disc in the back, right-sided weakness from an old stroke, peripheral neuropathy, coronary artery disease with stent, depression. PAST SURGICAL HISTORY: Cardiac cath with stent, orthopedic surgery, nasal sinus surgery, right elbow surgery, cataract surgery, cardioversion in 2017. SOCIAL HISTORY: Patient stopped smoking about 30 years ago. Lives with his . Uses a walker. . 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 FAMILY HISTORY: Reviewed noncontributory to presentation. HOME MEDICATIONS: 1. Metformin 1000 mg b.i.d. 2. Atarax 10 mg t.i.d. 3. Hydralazine 25 p.o. b.i.d. 4. Norvasc 5 mg q.h.s. 5. Coumadin 4 mg p.o. daily. 6. Ocuvite with lutein 1 tablet p.o. daily. 7. Vitamin E 400 units p.o. at noon. 8. Triamcinolone 0.1% topical t.i.d. p.r.n. 9. Testosterone 20 mg IM Q 14 days. 10.Restoril 50 mg p.o. q.h.s. 11.Zoloft 100 mg p.o. daily. 12.Prilosec 20 mg p.o. b.i.d. 13.Nitrostat 0.4 sublingual q.5 p.r.n. 14.Multivitamin 1 tablet p.o. daily. 15.Singulair 10 mg q.h.s. 16.Lopressor 25 p.o. b.i.d. and 50 mg p.o. b.i.d. 17.Methadone 5 mg q.8. 18.Mevacor 20 mg q.h.s. 19.Lisinopril 40 mg p.o. daily. 20.Victoza 0.6 mg subcu daily. 21.DuoNeb t.i.d. p.r.n. 22.Insulin glargine 30 units subcu daily. 23.Insulin lispro 10 units 3 times a day. 24.Flonase 2 sprays each nostril daily. 25.Estazolam 1 mg p.o. daily p.r.n. 26.Vitamin B12 1000 mcg p.o. daily. 27.Aspirin 162 mg q.h.s. 28.Amoxicillin 875 mg p.o. b.i.d. ALLERGIES: SULFA. PHYSICAL EXAMINATION: Vital signs on presentation, temperature 100.9, pulse 119, respiration 22, blood pressure 160/72, pulse ox 96% on room air. General appearance: Average built, sitting up, tired appearing. Eyes pupils equal. Conjunctivae normal. HEENT external appearance of nose and ears normal. Oral cavity normal. Neck JVD unable to assess. Mass not palpable. Respiratory effort increased. Lungs decreased breath sounds. Cardiovascular heart is irregular. Minimal edema. ABDOMEN: Soft, nontender. Liver and spleen not palpable. Lymphatics: No lymph node palpable in the neck and axilla. PSYCHIATRY: Alert and oriented x3. Mood and affect anxious-appearing. Neurological: Power on the right arm and right leg is 3 x 5 with some contracture of the right hand. INVESTIGATIONS: Chest x-ray shows evidence of pulmonary edema, blunting of the ankles, fluid in the fissure and some patchy infiltrates. White count 10.2, hemoglobin 13.3, INR 4.4, potassium 3.8. BUN and creatinine is normal. Troponin 1.050. ProBNP 7420. Influenza A and B negative. EKG shows atrial fibrillation with rapid ventricular rate with some ST-segment depression. ASSESSMENT: 1. Acute non-ST elevation myocardial infarction in a patient with known coronary artery disease. 2. Acute congestive heart failure probably from ischemic cardiomyopathy with contribution from uncontrolled atrial fibrillation. 3. Persistent atrial fibrillation with rapid ventricular rate, present on admission. 4. Diabetes mellitus type 2, chronically on insulin. 5. Hyperlipidemia. 6. Essential hypertension. 7. Chronic fibromyalgia. 8. Hiatal hernia. 9. Right-sided paresis from a prior stroke. 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 11.Peripheral neuropathy secondary to diabetes. 12.Coronary artery disease, prior history of stent. 13.Depression, not otherwise specified. 14.Gait dysfunction uses a walker at baseline. 15.Acute chronic obstructive pulmonary disease exacerbation in an ex-smoker. PLAN: Patient is already on anticoagulation in the form of Coumadin. We will cut back the dose to 2.5 mg starting at tomorrow. Other home medications are resumed. The patient is already on aspirin. We will hold off patient's amoxicillin and keep the patient on ceftriaxone. The patient was started on Cardizem drip. Accu-Cheks to be closely followed. Cardiology was consulted from the ER. Care was discussed the patient and at the bedside. Copy to Dr. Escalona. DIVINA / JEFRY: [id number] /
[2017-07-08] MEDS: ASPIRIN 81 MG PO SCH (20:55)
[2017-07-08] MEDS: amLODIPine 5 MG TAB PO SCH (20:55)
[2017-07-08] MEDS: METOPROLOL TARTRATE 25 MG TAB PO SCH (20:56)
[2017-07-08 20:57] LABS: Glucose,Whole Blood 174 mg/dL (75-99)
[2017-07-08] MEDS: ATORVASTATIN 10 MG TAB PO SCH (20:57)
[2017-07-08] MEDS: hydrALAZINE HCL 25 MG TAB PO SCH (20:57)
[2017-07-08] MEDS: MONTELUKAST 10 MG TAB PO SCH (20:58)
[2017-07-08] MEDS ORDERED: AMOXICILLIN 875 MG TAB PO SCH (21:00)
[2017-07-08] MEDS ORDERED: FUROSEMIDE 10 MG/ML 4 ML VIAL IV SCH (21:00)
[2017-07-08] MEDS ORDERED: TEMAZEPAM 15 MG CAP PO PRN (21:00)
[2017-07-08] MEDS ORDERED: METOPROLOL TARTRATE 50 MG TAB PO SCH (21:00)
[2017-07-08] MEDS ORDERED: IPRATROPIUM-ALBUTEROL 3 ML NEB INHALATION PRN (23:31)
[2017-07-09] MEDS: METHADONE 5 MG TAB PO SCH ×4 (01:29→21:36)
[2017-07-09 01:50] LABS: INR 3.1 (<1.2); Prothrombin Time 27.4 sec (9.0-12.0)
[2017-07-09] MEDS: hydrOXYzine HCL 10 MG TAB PO SCH ×3 (05:15→15:13)
[2017-07-09 05:33] LABS: Glucose,Whole Blood 286 mg/dL (75-99)
[2017-07-09] MEDS: INSULIN ASPART 100 UNIT/ML 1 ML 10 ML VIAL SQ SCH ×6 (07:04→17:59)
[2017-07-09] MEDS: metFORMIN 500 MG TAB PO SCH ×2 (07:04→17:59)
[2017-07-09] MEDS: PANTOPRAZOLE 40 MG TABLET PO SCH (07:17)
[2017-07-09] MEDS: cefTRIAXone IN SWFI 1,000 MG/10 ML SYRINGE IVP SCH (08:25)
[2017-07-09] MEDS: CYANOCOBALAMIN 500 MCG TAB PO SCH (08:25)
[2017-07-09] MEDS: LISINOPRIL 20 MG TAB PO SCH (08:25)
[2017-07-09] MEDS: METOPROLOL TARTRATE 25 MG TAB PO SCH (08:25)
[2017-07-09] MEDS: hydrALAZINE HCL 25 MG TAB PO SCH ×2 (08:25→21:35)
[2017-07-09] MEDS: SERTRALINE 100 MG TAB PO SCH (08:25)
[2017-07-09] MEDS: VITAMIN E (DL,TOCOPHERYL ACET) 400 UNIT CAP PO SCH (08:26)
[2017-07-09] MEDS: MULTIVITAMINS, THERA 1 EACH TAB PO SCH (08:26)
[2017-07-09] MEDS: FUROSEMIDE 10 MG/ML 10 ML VIAL IV SCH ×2 (08:26→15:14)
[2017-07-09] MEDS: VIT A,C & E-LUTEIN-MINERALS 1 EACH TAB PO SCH (08:26)
[2017-07-09] MEDS: INSULIN DETEMIR 100 UNIT/ML 10 ML VIAL SQ SCH (08:29)
[2017-07-09] MEDS ORDERED: NON-FORMULARY DRUG (Warfarin Sodium [Coumadin] 4 MG) PO SCH (09:00)
[2017-07-09] MEDS: IPRATROPIUM-ALBUTEROL 3 ML NEB INHALATION SCH ×4 (09:49→20:15)
--- NOTE | 2017-07-09 11:38 | P.CRDCN ---
History of Present Illness Consult date: 07/09/17 Consult reason: atrial fibrillation History of present illness: 76-year-old male patient who presented to the emergency department with shortness of breath, cough with productive brown sputum. The patient was treated as an outpatient for a sinus infection. On admission the patient was found to be in atrial fibrillation with rapid ventricular response. He follows with Dr. BEN Gardner on a regular basis. He underwent unsuccessful cardioversion in September 2016. He has been on beta kavitha and anticoagulant. Chest x-ray showed evidence of congestive heart failure and BNP level was elevated. Patient had elevated troponins likely secondary to supply demand mismatch. He denies any chest discomfort, no shortness of breath at rest. Review of Systems All systems: negative Eyes: denies blurred vision Cardiovascular: Reports as per HPI Respiratory: Reports cough, Reports cough with sputum, Reports dyspnea Musculoskeletal: Reports muscle weakness Past Medical History Past Medical History: Atrial Fibrillation, Asthma, CVA/TIA, Diabetes Mellitus, Eye Disorder, Fibromyalgia, Hyperlipidemia, Hypertension, Musculoskeletal Disorder, Pneumonia Additional Past Medical History / Comment(s): Hiatal Hernia. Glaucoma. Rt sided weakness from stroke (2008). HERNIATED DISC, BACK PAIN. NEUROPATHY FEET. CARDIOVERSION 10/14/16 UNSUCCESSFUL. History of Any Multi-Drug Resistant Organisms: None Reported Past Surgical History: Heart Catheterization With Stent, Orthopedic Surgery Additional Past Surgical History / Comment(s): nasal/sinus surgery, rt elbow, cataracts. CARDIOVERSION 10/14/16. Past Anesthesia/Blood Transfusion Reactions: No Reported Reaction Date of Last Stent Placement:: 2001 Past Psychological History: Depression Smoking Status: Former smoker Past Alcohol Use History: None Reported Past Drug Use History: None Reported - Past Family History Mother Family Medical History: No Reported History Father Family Medical History: Cancer Medications and Allergies Home Medications Medication Instructions Recorded Confirmed Type Aspirin 162 mg PO HS 11/26/13 07/08/17 History INSULIN LISPRO (humaLOG) [humaLOG] 10 units SQ PC-TID 11/26/13 07/08/17 History Lovastatin [Mevacor] 20 mg PO HS 11/26/13 07/08/17 History Methadone [Dolophine] 5 mg PO Q8H 11/26/13 07/08/17 History Montelukast Sodium [Singulair] 10 mg PO HS 11/26/13 07/08/17 History hydrOXYzine HCL [Atarax] 10 mg PO TID 11/26/13 07/08/17 History metFORMIN HCL 1,000 mg PO BID 11/26/13 07/08/17 History Ipratropium-Albuterol Nebulize 3 ml INHALATION RT-TID PRN 10/10/16 07/08/17 History [Duoneb 0.5 mg-3 mg/3 ml Soln] Multivitamins, Thera [Multivitamin 1 tab PO DAILY 10/10/16 07/08/17 History (formulary)] Omeprazole [PriLOSEC] 20 mg PO BID 10/10/16 07/08/17 History Sertraline [Zoloft] 100 mg PO DAILY 10/10/16 07/08/17 History Vitamin E (Dl,Tocopheryl Acet) 400 unit PO 1200 10/10/16 07/08/17 History [Vitamin E] Vits A,C,E/Lutein/Minerals 1 tab PO DAILY 10/10/16 07/08/17 History [Ocuvite with Lutein Tablet] amLODIPine BESYLATE [Norvasc] 5 mg PO HS 10/10/16 07/08/17 History Cyanocobalamin (Vitamin B-12) 1,000 mcg PO DAILY 11/11/16 07/08/17 History [Vitamin B-12] Metoprolol Tartrate [Lopressor] 50 mg PO BID 11/11/16 07/08/17 History Amoxicillin 875 mg PO BID 07/08/17 07/08/17 History Estazolam 1 mg PO DAILY PRN 07/08/17 07/08/17 History Fluticasone Nasal [place] [Flonase 2 spray EA NOSTRIL DAILY 07/08/17 07/08/17 History Nasal [place]] Insulin Glargine,Hum.rec.anlog 30 unit SQ DAILY 07/08/17 07/08/17 History [Maral Perla] Liraglutide [Victoza 2-Garry] 0.6 mg SQ DAILY 07/08/17 07/08/17 History Lisinopril 40 mg PO DAILY 07/08/17 07/08/17 History Metoprolol Tartrate [Lopressor] 25 mg PO BID 07/08/17 07/08/17 History Nitroglycerin Sl Tabs [Nitrostat] 0.4 mg SUBLINGUAL Q5M PRN 07/08/17 07/08/17 History Temazepam [Restoril] 15 mg PO HS 07/08/17 07/08/17 History Testosterone Cypionate 200 mg IM Q14D 07/08/17 07/08/17 History [Depo-Testosterone] Triamcinolone 0.1% Cream [Kenalog] 1 applicatio TOPICAL TID PRN 07/08/17 History Warfarin Sodium [Coumadin] 4 mg PO DAILY 07/08/17 07/08/17 History hydrALAZINE HCL [Apresoline] 25 mg PO BID 07/08/17 07/08/17 History Allergies Allergy/AdvReac Type Severity Reaction Status Date / Time Sulfa (Sulfonamide Allergy Rash/Hives Verified 07/08/17 13:55 Antibiotics) Physical Exam Vitals: Vital Signs Temp Pulse Pulse Pulse Resp BP BP 07/09/17 11:02 18 07/09/17 10:57 97.0 F L 101 H 18 117/84 07/09/17 08:00 97.2 F L 84 20 150/79 07/09/17 04:10 130 H 20 07/09/17 04:00 97.8 F 130 H 20 128/75 07/09/17 00:15 98.5 F 125 H 19 122/76 07/08/17 23:30 108 H 07/08/17 23:21 110 H 07/08/17 20:30 98.8 F 115 H 19 154/99 07/08/17 20:19 108 H 07/08/17 20:06 108 H 07/08/17 17:12 98.5 F 105 H 109 H 18 132/82 07/08/17 16:30 122 H 07/08/17 16:20 121 H 07/08/17 15:35 98.7 F 121 H 20 07/08/17 14:20 163/100 07/08/17 14:04 121 H 07/08/17 13:57 100.9 F H 119 H 22 07/08/17 13:55 120 H 07/08/17 12:57 24 07/08/17 12:54 98.6 F 106 H 18 164/72 Pulse Ox 07/09/17 11:02 07/09/17 10:57 96 07/09/17 08:00 98 07/09/17 04:10 07/09/17 04:00 93 L 07/09/17 00:15 95 07/08/17 23:30 07/08/17 23:21 07/08/17 20:30 93 L 07/08/17 20:19 07/08/17 20:06 07/08/17 17:12 94 L 07/08/17 16:30 07/08/17 16:20 07/08/17 15:35 97 07/08/17 14:20 07/08/17 14:04 07/08/17 13:57 96 07/08/17 13:55 07/08/17 12:57 07/08/17 12:54 94 L Intake and Output 07/08/17 07/09/17 07/09/17 22:59 06:59 14:59 Intake Total 266.833 360 160 Balance 266.833 360 160 Intake: IV 120 0.9 120 Intake, IV Titration 26.833 160 Amount Diltiazem 50 mg In Sodium 26.833 Chloride 0.9% 40 ml @ 5 MG/HR 5 mls/hr IV .Q10H ONE Rx#:[id number] Sodium Chloride 0.9% 1, 160 000 ml @ 100 mls/hr IV . Q10H STA Rx#:[id number] Oral 240 240 Other: Voiding Method Urinal Urinal Weight 111.3 kg - Constitutional General appearance: average body habitus - EENT Eyes: normal appearance ENT: hearing grossly normal Ears: bilateral: normal - Neck No JVD Neck: normal ROM Carotids: bilateral: upstroke normal - Respiratory Respiratory: bilateral: rhonchi - Cardiovascular Rhythm: irregularly irregular - Gastrointestinal General gastrointestinal: soft - Integumentary Integumentary: normal - Neurologic Right sided residual weakness Neurologic: focal deficits - Musculoskeletal Musculoskeletal: generalized weakness, right sided weakness - Psychiatric Psychiatric: A&O x's 3 Results 07/08/17 13:30 07/08/17 13:30 Cardiac Enzymes 07/08/17 07/08/17 07/08/17 Range/Units 13:30 13:30 20:04 AST 30 (17-59) U/L CK-MB (CK-2) 7.6 H* (0.0-2.4) ng/mL Troponin I 1.050 H* 1.190 H* (0.000-0.034) ng/mL 07/09/17 Range/Units 01:25 AST (17-59) U/L CK-MB (CK-2) (0.0-2.4) ng/mL Troponin I 1.380 H* (0.000-0.034) ng/mL Coagulation 07/08/17 07/09/17 Range/Units 13:30 01:25 PT 39.3 H 27.4 H (9.0-12.0) sec APTT 40.2 H (22.0-30.0) sec CBC 07/08/17 Range/Units 13:30 WBC 10.2 (3.8-10.6) k/uL RBC 5.07 (4.30-5.90) m/uL Hgb 13.3 (13.0-17.5) gm/dL Hct 43.2 (39.0-53.0) % Plt Count 309 (150-450) k/uL Comprehensive Metabolic Panel 07/08/17 Range/Units 13:30 Sodium 138 (137-145) mmol/L Potassium 3.8 (3.5-5.1) mmol/L Chloride 99 (98-107) mmol/L Carbon Dioxide 26 (22-30) mmol/L BUN 17 (9-20) mg/dL Creatinine 0.74 (0.66-1.25) mg/dL Glucose 280 H (74-99) mg/dL Calcium 8.9 (8.4-10.2) mg/dL AST 30 (17-59) U/L ALT 33 (21-72) U/L Alkaline Phosphatase 76 (38-126) U/L Total Protein 6.3 (6.3-8.2) g/dL Albumin 3.5 (3.5-5.0) g/dL Current Medications Generic Name Dose Route Start Last Admin Trade Name Freq PRN Reason Stop Dose Admin Acetaminophen 650 mg 07/08/17 18:22 Tylenol Tab PO Q6HR PRN Mild Pain or Fever > 100.5 Albuterol/Ipratropium 3 ml 07/09/17 08:00 07/09/17 09:49 Duoneb 0.5 Mg-3 Mg/3 Ml Soln INHALATION Not Given RT-QID MARCELLE Albuterol/Ipratropium 3 ml 07/08/17 23:31 Duoneb 0.5 Mg-3 Mg/3 Ml Soln INHALATION RT-Q2H PRN Shortness Of Breath Or Wheezing Alprazolam 0.25 mg 07/08/17 18:22 Xanax PO Q6HR PRN Anxiety Amlodipine Besylate 5 mg 07/08/17 21:00 07/08/17 20:55 Norvasc PO 5 mg HS MARECLLE Administration Aspirin 162 mg 07/08/17 21:00 07/08/17 20:55 Aspirin PO 162 mg HS MARCELLE Administration Atorvastatin Calcium 10 mg 07/08/17 21:00 07/08/17 20:57 Lipitor PO 10 mg HS MARCELLE Administration Calcium Carbonate/Glycine 1,000 mg 07/08/17 18:22 Tums PO Q4HR PRN Dyspepsia Ceftriaxone Sodium 1,000 mg 07/09/17 09:00 07/09/17 08:25 Rocephin IVP 1,000 mg Q24HR MARCELLE Administration Cyanocobalamin 1,000 mcg 07/09/17 09:00 07/09/17 08:25 Vitamin B-12 PO 1,000 mcg DAILY [facility] Administration Furosemide 60 mg 07/08/17 18:30 07/09/17 08:26 Lasix IV 60 mg Q8HR MARCELLE Administration Hydralazine HCl 25 mg 07/08/17 21:00 07/09/17 08:25 Apresoline PO 25 mg BID MARCELLE Administration Hydroxyzine HCl 10 mg 07/08/17 16:00 07/09/17 08:25 Atarax PO 10 mg TID MARCELLE Administration Insulin Aspart 10 unit 07/08/17 18:30 07/09/17 07:18 Novolog SQ Not Given PC-TID [facility] Insulin Aspart 0 unit 07/09/17 07:30 07/09/17 07:04 Novolog SQ 7 unit AC-TID [facility] Administration Protocol Insulin Detemir 30 unit 07/09/17 09:00 07/09/17 08:29 Levemir SQ 30 unit DAILY MARCELLE Administration Lactulose 20 gm 07/08/17 18:22 Cephulac PO DAILY PRN Constipation Lisinopril 40 mg 07/09/17 09:00 07/09/17 08:25 Zestril PO 40 mg DAILY MARCELLE Administration Magnesium Hydroxide 2,400 mg 07/08/17 18:22 Milk Of Magnesia PO DAILY PRN Constipation Melatonin 3 mg 07/08/17 18:22 Melatonin PO HS PRN Insomnia Metformin HCl 1,000 mg 07/08/17 17:30 07/09/17 07:04 Glucophage PO Not Given AC-BID [facility] Methadone HCl 5 mg 07/08/17 22:00 07/09/17 08:28 Dolophine PO 5 mg TID [facility] Administration Metoprolol Tartrate 75 mg 07/08/17 21:00 07/09/17 08:25 Lopressor PO 75 mg BID [facility] Administration Montelukast Sodium 10 mg 07/08/17 21:00 07/08/17 20:58 Singulair PO 10 mg HS [facility] Administration Multivitamins 1 each 07/09/17 12:00 07/09/17 08:26 Theragran PO 1 each DAILY@1200 [facility] Administration Multivitamins/Minerals 1 each 07/09/17 12:00 07/09/17 08:26 Ivite PO 1 each DAILY@1200 MARCELLE Administration Naloxone HCl 0.2 mg 07/08/17 18:22 Narcan IV Q2M PRN Opioid Reversal Nitroglycerin 0.4 mg 07/08/17 15:50 Nitrostat SUBLINGUAL Q5M PRN Chest Pain Liraglutide [Victoza 0.6 mg 07/09/17 09:00 07/09/17 08:19 ] SQ Not Given DAILY [facility] Ondansetron HCl 4 mg 07/08/17 18:22 Zofran IVP Q8HR PRN Nausea And Vomiting Pantoprazole Sodium 40 mg 07/09/17 07:30 07/09/17 07:17 Protonix PO Not Given AC-[facility] Sertraline HCl 100 mg 07/09/17 09:00 07/09/17 08:25 Zoloft PO 100 mg DAILY [facility] Administration Triamcinolone Acetonide 1 applic 07/08/17 15:50 Kenalog TOPICAL TID PRN Itching Vitamin E 400 unit 07/09/17 12:00 07/09/17 08:26 Vitamin E PO 400 unit 1200 [facility] Administration Warfarin Sodium 2.5 mg 07/09/17 21:00 Coumadin PO HS [facility] Intake and Output 07/08/17 07/09/17 07/09/17 22:59 06:59 14:59 Intake Total 266.833 360 160 Balance 266.833 360 160 Intake: IV 120 0.9 120 Intake, IV Titration 26.833 160 Amount Diltiazem 50 mg In Sodium 26.833 Chloride 0.9% 40 ml @ 5 MG/HR 5 mls/hr IV .Q10H ONE Rx#:[id number] Sodium Chloride 0.9% 1, 160 000 ml @ 100 mls/hr IV . Q10H STA Rx#:[id number] Oral 240 240 Other: Voiding Method Urinal Urinal Weight 111.3 kg 07/08/17 13:30 07/08/17 13:30 - EKG Interpretation EKG shows: atrial fibrillation Assessment and Plan Assessment: Acute exacerbation of diastolic heart failure Atrial fibrillation with rapid ventricular response CAD Status post PCI with stent to the mid LAD in 2001 Diabetes mellitus History of CVA with right-sided residual weakness Hypertension Elevated troponins Plan: Obtain echocardiogram to evaluate LV size and systolic function. Previous echocardiogram in 2014 showed a normal ventricular function with ejection fraction 55%. Moderate tricuspid insufficiency and moderate pulmonary artery hypertension. Patient's heart rate still not well controlled we will increase his Lopressor to 100 mg by mouth twice a day and add digoxin 0.25 IV push every 6 hours 2 doses. Digoxin 0.125 to start in a.m. daily. Continue Lasix 60 mg every 8 hours with strict I&O and daily weights. Continue telemetry monitoring. Elevated troponins are likely secondary to supply demand mismatch. Thank you very kindly for this consultation.
[2017-07-09 11:52] LABS: Glucose,Whole Blood 124 mg/dL (75-99)
[2017-07-09] MEDS: METOPROLOL TARTRATE 50 MG TAB PO SCH ×2 (12:07→21:37)
[2017-07-09] MEDS: DIGOXIN 250 MCG/ML 2 ML AMP IVP SCH ×2 (12:08→17:59)
[2017-07-09 17:00] LABS: Glucose,Whole Blood 137 mg/dL (75-99)
[2017-07-09] MEDS: DILTIAZEM 50 MG in SODIUM CHLORIDE 0.9% 40 ML IV SCH (18:16)
[2017-07-09 20:35] LABS: Glucose,Whole Blood 208 mg/dL (75-99)
--- NOTE | 2017-07-09 21:02 | PN ---
PROGRESS NOTE DATE OF SERVICE: July 09, 2017. PRESENTING COMPLAINT: Short of breath. INTERVAL HISTORY: The patient presents with possible acute myocardial infarction with troponin going up to 1.3, CHF exacerbation and atrial fibrillation. Heart rate remains uncontrolled. The patient's breathing is better. at the bedside. The patient did tolerate her diet. Breathing feels overall much better. No chest pain. REVIEW OF SYSTEMS: Done for constitutional, cardiovascular, GI, pulmonary; relevant findings above. CURRENT MEDICATIONS: Reviewed that include DuoNeb, Norvasc, aspirin, Ceftriaxone, Lopressor 100 twice a day, digoxin was started today by Cardiology. PHYSICAL EXAMINATION: Temperature 97, pulse 120, respiration 18, blood pressure 117/84, pulse ox 96% on 2 L. GENERAL APPEARANCE: Lying in bed, awake. Eyes: Pupils equal. Conjunctivae normal. HEENT: External appearance of nose and ears normal. Oral cavity normal. Neck JVD unable to assess. Mass not palpable. Respiratory effort increased. Lungs decreased breath sounds. Cardiovascular. HEART: Sounds irregular. No edema. ABDOMEN: Soft, nontender. Liver and spleen not palpable. Psychiatry: Alert and oriented times three. Mood and affect normal. Neurological: Power on the right arm and right leg is 3/5. INVESTIGATIONS: Telemetry shows atrial fibrillation uncontrolled. INR is 3.1. Accu-Cheks noted. Troponin 1.3. ASSESSMENT: 1. Acute non ST elevation myocardial infarction in a patient with known coronary artery disease. 2. Acute congestive heart failure from ischemic cardiomyopathy with contribution from uncontrolled atrial fibrillation with clinical improvement. 3. Persistent atrial fibrillation, rate still uncontrolled. 4. Diabetes mellitus type 2, chronically on insulin. 5. Hyperlipidemia. 6. Essential hypertension. 7. Chronic fibromyalgia. 8. Hiatal hernia. 9. 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 11.Peripheral neuropathy secondary to diabetes. 12.Coronary artery disease, prior history of stent. 13.Depression, not otherwise specified. 14.Gait dysfunction, uses a walker at baseline. 15.Acute chronic obstructive pulmonary disease exacerbation in an ex-smoker. 16.Possible pneumonia suspect gram-negative organism. PLAN: Per Cardiology Lopressor was increased to 100 mg twice a day. Digoxin was added. We will see the heart rate goes. Clinically patient has done a shade better. Heart rate is still uncontrolled. Coumadin dose has been cut back. Care was discussed at length with the patient and and also patient's daughter. We will see how he does and go from there. MMLAURENL / IJN: [id number] /
[2017-07-09] MEDS: DICLOFENAC SODIUM GEL 100 GM TUBE TOPICAL PRN (21:31)
[2017-07-09] MEDS: amLODIPine 5 MG TAB PO SCH (21:35)
[2017-07-09] MEDS: ATORVASTATIN 10 MG TAB PO SCH (21:35)
[2017-07-09] MEDS: MONTELUKAST 10 MG TAB PO SCH (21:35)
[2017-07-09] MEDS: ASPIRIN 81 MG PO SCH (21:36)
[2017-07-09] MEDS: WARFARIN 2.5 MG TAB PO SCH (21:37)
[2017-07-10] MEDS: FUROSEMIDE 10 MG/ML 10 ML VIAL IV SCH ×4 (00:35→23:02)
[2017-07-10] MEDS: hydrOXYzine HCL 10 MG TAB PO SCH ×4 (01:29→20:14)
[2017-07-10 06:02] LABS: Glucose,Whole Blood 123 mg/dL (75-99)
[2017-07-10 06:46] LABS: INR 2.3 (<1.2); Prothrombin Time 21.1 sec (9.0-12.0)
[2017-07-10] MEDS: DILTIAZEM 50 MG in SODIUM CHLORIDE 0.9% 40 ML IV SCH ×2 (06:52→08:12)
[2017-07-10] MEDS: INSULIN ASPART 100 UNIT/ML 1 ML 10 ML VIAL SQ SCH ×6 (06:52→17:21)
[2017-07-10] MEDS: PANTOPRAZOLE 40 MG TABLET PO SCH (06:56)
[2017-07-10] MEDS: metFORMIN 500 MG TAB PO SCH ×2 (06:56→16:44)
[2017-07-10] MEDS: IPRATROPIUM-ALBUTEROL 3 ML NEB INHALATION SCH ×4 (07:56→19:23)
[2017-07-10] MEDS: SERTRALINE 100 MG TAB PO SCH (08:04)
[2017-07-10] MEDS: hydrALAZINE HCL 25 MG TAB PO SCH ×2 (08:05→20:14)
[2017-07-10] MEDS: LISINOPRIL 20 MG TAB PO SCH (08:05)
[2017-07-10] MEDS: METOPROLOL TARTRATE 50 MG TAB PO SCH ×2 (08:05→20:14)
[2017-07-10] MEDS: CYANOCOBALAMIN 500 MCG TAB PO SCH (08:05)
[2017-07-10] MEDS: DIGOXIN 125 MCG TAB PO SCH (08:05)
[2017-07-10] MEDS: cefTRIAXone IN SWFI 1,000 MG/10 ML SYRINGE IVP SCH (08:05)
[2017-07-10] MEDS: INSULIN DETEMIR 100 UNIT/ML 10 ML VIAL SQ SCH (08:06)
[2017-07-10] MEDS: METHADONE 5 MG TAB PO SCH ×3 (08:06→17:29)
[2017-07-10] MEDS: MULTIVITAMINS, THERA 1 EACH TAB PO SCH (08:11)
[2017-07-10] MEDS: VIT A,C & E-LUTEIN-MINERALS 1 EACH TAB PO SCH (08:12)
[2017-07-10] MEDS: VITAMIN E (DL,TOCOPHERYL ACET) 400 UNIT CAP PO SCH (08:12)
[2017-07-10 11:23] LABS: Glucose,Whole Blood 85 mg/dL (75-99)
[2017-07-10 12:28] LABS: Glucose,Whole Blood 70 mg/dL (75-99)
[2017-07-10] MEDS ORDERED: DEXTROSE 5% IN WATER 100 ML with AMIODARONE 150 MG IV ONE (12:45)
--- NOTE | 2017-07-10 12:46 | ECHOF ---
Referral Reason:chf MEASUREMENTS -------- HEIGHT: 185.4 cm WEIGHT: 137.4 kg BP: 132/83 RVIDd: 4.1 cm (< 3.3) IVSd: 1.7 cm (0.6 - 1.1) LVIDd: 4.0 cm (3.9 - 5.3) LVPWd: 1.6 cm (0.6 - 1.1) IVSs: 1.8 cm LVIDs: 3.5 cm LVPWs: 2.1 cm LA Diam: 4.5 cm (2.7 - 3.8) LAESV Index (A-L): 35.25 ml/m Ao Diam: 4.0 cm (2.0 - 3.7) AV Cusp: 2.6 cm (1.5 - 2.6) MV EXCURSION: 19.913 mm (> 18.000) MV EF SLOPE: 111 mm/s (70 - 150) EPSS: 1.0 cm FINDINGS -------- Atrial fibrillation. This was a technically difficult study with suboptimal apical views. The left ventricular size is normal. There is severe concentric left ventricular hypertrophy. Ove rall left ventricular systolic function is moderately impaired with, an EF between 35 - 40 %. Basal lateral LV wall motion is hypokinetic. Basal inferior LV wall motion is hypokinetic. Basal inf eroseptal LV wall motion is hypokinetic. Mid lateral LV wall motion is hypokinetic. Mid inferio r LV wall motion is hypokinetic. The right ventricle is moderately enlarged. LA is moderately dilated 34-39 ml/m2 The right atrium is normal in size. 3 ml of Lumason was utilized for enhancement of images. There is mild aortic valve sclerosis. Mild mitral annular calcification present. The tricuspid valve was not well visualized. The pulmonic valve was not well visualized. The aortic root is dilated measuring 4.0cm. Normal inferior vena cava with normal inspiratory collapse consistent with estimated right atrial pre ssure of 5 mmHg. There is no pericardial effusion. CONCLUSIONS -------- 1. Atrial fibrillation. 2. This was a technically difficult study with suboptimal apical views. 3. The left ventricular size is normal. 4. There is severe concentric left ventricular hypertrophy. 5. Overall left ventricular systolic function is moderately impaired with, an EF between 35 - 40 %. 6. Basal lateral LV wall motion is hypokinetic. 7. Basal inferior LV wall motion is hypokinetic. 8. Basal inferoseptal LV wall motion is hypokinetic. 9. Mid lateral LV wall motion is hypokinetic. 10. Mid inferior LV wall motion is hypokinetic. 11. The right ventricle is moderately enlarged. 12. LA is moderately dilated 34-39 ml/m2 13. 3 ml of Lumason was utilized for enhancement of images. 14. There is mild aortic valve sclerosis. 15. Mild mitral annular calcification present. 16. The tricuspid valve was not well visualized. 17. The pulmonic valve was not well visualized. 18. The aortic root is dilated measuring 4.0cm. 19. Normal inferior vena cava with normal inspiratory collapse consistent with estimated right atrial pressure of 5 mmHg. 20. There is no pericardial effusion. MANAGER OPERATIONS AND PROCUREMENT: Mary Lou Dang RDCS
[2017-07-10 14:36] VITALS: BMI 39.9
[2017-07-10] MEDS: AMIODARONE 450 MG in DEXTROSE 5% IN WATER 250 ML IV SCH ×4 (15:01→21:51)
--- NOTE | 2017-07-10 15:07 | P.PN ---
Subjective Progress Note Date: 07/10/17 This is a 76-year-old male patient who presented to the emergency department with shortness of breath, cough with productive brown sputum. The patient was treated as an outpatient for a sinus infection. On admission the patient was found to be in atrial fibrillation with rapid ventricular response. He follows with Dr. BEN Gardner on a regular basis. He underwent unsuccessful cardioversion in September 2016. He has been on beta kavitha and anticoagulant. Chest x-ray showed evidence of congestive heart failure and BNP level was elevated. Patient had elevated troponins likely secondary to supply demand mismatch. He denies any chest discomfort, no shortness of breath at rest. 07/10/2017 Patient was seen and examined this morning, continues to be short of breath, he is feeling somewhat better however. Echocardiogram with Doppler study performed here showed an ejection fraction of 35-40%. Patient's prior echo was in the range of 55%. Patient continues to be in atrial fibrillation, heart rate in the 90s to low 100s today. Because of the low ejection fraction, we will discontinue the IV Cardizem drip, patient is also getting Norvasc, we will discontinue this. We will start the patient on amiodarone monitoring of the INR closely, he is also on Lanoxin, we will monitor these levels closely as well. We will discontinue the patient's LOLY inhibitor and in 48 hours start the patient on Entresto. Objective - Vital Signs Vital signs: Vital Signs Temp 97.5 F L 07/10/17 12:11 Pulse 82 07/10/17 12:11 Resp 19 07/10/17 12:11 BP 133/75 07/10/17 12:11 Pulse Ox 97 07/10/17 12:11 Intake & Output 07/09/17 07/10/17 07/10/17 18:59 06:59 18:59 Intake Total 740 150 480 Output Total 725 Balance 740 -575 480 Weight 137.5 kg 137.5 kg Intake: IV 100 0.9 100 Intake, IV Titration 160 50 Amount Diltiazem 50 mg In Sodium 50 Chloride 0.9% 40 ml @ 10 MG/HR 10 mls/hr IV .Q5H MARCELLE Rx#:[id number] Sodium Chloride 0.9% 1, 160 000 ml @ 100 mls/hr IV . Q10H STA Rx#:[id number] Oral 480 100 480 Output: Urine 725 Other: Voiding Method Urinal Urinal # Voids 1 # Bowel Movements 0 - Exam PHYSICAL EXAMINATION: HEENT: Head is atraumatic, normocephalic. Pupils equal, round. Neck is supple. There is elevated jugular venous pressure. HEART EXAMINATION: S1 and S2 irregularly irregular a systolic murmur is heard. CHEST EXAMINATION: His reveal some scattered coarse rhonchi throughout. ABDOMEN: Soft, nontender. Bowel sounds are heard. No organomegaly noted. EXTREMITIES: 2+ peripheral pulses with evidence of peripheral edema and no calf tenderness noted. NEUROLOGIC patient is awake, alert and oriented -3. . - Labs CBC & Chem 7: 07/08/17 13:30 07/08/17 13:30 Labs: Abnormal Lab Results - Last 24 Hours (Table) 07/09/17 07/09/17 07/10/17 Range/Units 16:55 20:33 06:01 PT (9.0-12.0) sec INR (<1.2) POC Glucose (mg/dL) 137 H 208 H 123 H (75-99) mg/dL 07/10/17 07/10/17 Range/Units 06:18 12:07 PT 21.1 H (9.0-12.0) sec INR 2.3 H (<1.2) POC Glucose (mg/dL) 70 L (75-99) mg/dL Microbiology - Last 24 Hours (Table) 07/09/17 11:45 Gram Stain - Preliminary Sputum Sputum Culture - Preliminary 07/08/17 13:30 Blood Culture - Preliminary Blood No Growth after 24 hours Assessment and Plan Plan: Assessment and plan #1 diastolic congestive heart failure acute on chronic #2 chronic persistent atrial fibrillation, on Coumadin for anticoagulation. #3 diabetes #4 hyperlipidemia Number 5 history of CVA #6 coronary artery disease with prior FREIGHT SEPARATOR to the LAD in 2001 7 hypertension Plan Echocardiogram with Doppler study was performed which revealed an ejection fraction of 35%. We will discontinue the IV Cardizem drip, discontinue Norvasc , start the patient on IV amiodarone drip. We will monitor the INR closely, also monitor the dig level closely as the patient is on Lanoxin as well. We will discontinue the lisinopril and in 48 hours start the patient on a contrast oh. Dr. Giordano will also have a discussion with Dr. BEN Gardner who is the primary care doctor in this case regarding possible ablation with Dr. Frost. DNP note has been reviewed, I agree with a documented findings and plan of care. Patient was seen and examined.
[2017-07-10 16:42] LABS: Glucose,Whole Blood 145 mg/dL (75-99)
[2017-07-10] MEDS: MONTELUKAST 10 MG TAB PO SCH (20:14)
[2017-07-10] MEDS: ATORVASTATIN 10 MG TAB PO SCH (20:14)
[2017-07-10] MEDS: WARFARIN 2.5 MG TAB PO SCH (20:14)
[2017-07-10 20:36] LABS: Glucose,Whole Blood 91 mg/dL (75-99)
--- NOTE | 2017-07-10 23:09 | PN ---
PROGRESS NOTE DATE OF SERVICE: 07/10/2017 PRESENTING COMPLAINT: Irregular heartbeat. INTERVAL HISTORY: This patient presented with possible acute NV, CHF exacerbation, atrial fibrillation. Heart rate is still running around the 100s, though patient's breathing is better. LOLY inhibitor was held by Cardiology with a view to start the patient on Entresto. Cardizem drip was taken off. Patient is tolerating his diet. His is present. REVIEW OF SYSTEMS: Done for constitutional, cardiovascular, GI, pulmonary; relevant findings as above. CURRENT MEDICATIONS: Reviewed. They include IV amiodarone, IV Lasix. PHYSICAL EXAMINATION: Temperature 97.5, pulse 100, respiration 18, blood pressure 133/75, pulse ox 97% on 1 L. GENERAL APPEARANCE: Lying in bed, awake. EYES: Pupils equal. Conjunctivae normal. HEENT: External appearance of nose and ears normal. Oral cavity normal. NECK: JVD not raised. Mass not palpable. RESPIRATORY: Effort increased. LUNGS: Decreased breath sounds. CARDIOVASCULAR: Heart sounds irregular. No edema. ABDOMEN: Soft, nontender. Liver and spleen not palpable. PSYCHIATRY: Alert and oriented x3. Mood and affect normal. NEUROLOGICAL: Power on the right side is 3/5 with hand contracture. INVESTIGATIONS: INR 2.3. Accu-Cheks are noted. ASSESSMENT: 1. Possible acute [id number] myocardial infarction in a patient with known coronary artery disease. 2. Acute congestive heart failure from ischemic cardiomyopathy, ejection fraction 30% to 35%, with a contribution from uncontrolled atrial fibrillation. 3. Persistent atrial fibrillation, slightly better controlled. 4. Diabetes mellitus, type 2, chronically on insulin. 5. Hyperlipidemia. 6. Essential hypertension. 7. Chronic fibromyalgia. 8. Hiatal hernia. 9. 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 11.Peripheral neuropathy secondary to diabetes. 12.Coronary artery disease with prior history of stent. 13.Depression not otherwise specified. 14.Gait dysfunction; uses a walker at baseline. 15.Acute chronic obstructive pulmonary disease exacerbation in an ex-smoker. 16.Possible pneumonia. Suspect Gram-negative organism. PLAN: Patient remains currently on DuoNeb, IV amiodarone, aspirin, Lipitor, IV ceftriaxone, p.o. digoxin, IV Lasix, hydralazine 25 mg b.i.d., Glucophage, Coumadin. Patient at this point will be switched over to p.o. Ceftin. Other medications as coordinated by Cardiology. Patient remains on Lopressor and is also on IV amiodarone. I spoke to the patient and his . Patient's Entresto will be started in another 48 hours. SNEHAL / CIRON: [id number] /
[2017-07-11] MEDS: AMIODARONE 450 MG in DEXTROSE 5% IN WATER 250 ML IV SCH ×4 (00:03→11:35)
[2017-07-11 01:25] LABS: Glucose,Whole Blood 94 mg/dL (75-99)
[2017-07-11 05:45] LABS: Glucose,Whole Blood 120 mg/dL (75-99)
[2017-07-11] MEDS: INSULIN ASPART 100 UNIT/ML 1 ML 10 ML VIAL SQ SCH ×7 (05:45→22:16)
[2017-07-11] MEDS: metFORMIN 500 MG TAB PO SCH ×2 (06:34→17:33)
[2017-07-11] MEDS: PANTOPRAZOLE 40 MG TABLET PO SCH (06:34)
[2017-07-11 06:40] LABS: INR 2.9 (<1.2); Prothrombin Time 25.6 sec (9.0-12.0)
[2017-07-11] MEDS: FUROSEMIDE 10 MG/ML 10 ML VIAL IV SCH ×3 (08:31→22:16)
[2017-07-11] MEDS: INSULIN DETEMIR 100 UNIT/ML 10 ML VIAL SQ SCH (08:40)
[2017-07-11] MEDS: IPRATROPIUM-ALBUTEROL 3 ML NEB INHALATION SCH ×4 (08:50→20:23)
[2017-07-11] MEDS: hydrOXYzine HCL 10 MG TAB PO SCH ×3 (09:15→20:44)
[2017-07-11] MEDS: METOPROLOL TARTRATE 50 MG TAB PO SCH ×2 (09:15→20:43)
[2017-07-11] MEDS: CEFUROXIME 250 MG TAB PO SCH ×2 (09:16→20:42)
[2017-07-11] MEDS: SERTRALINE 100 MG TAB PO SCH (09:17)
[2017-07-11] MEDS: CYANOCOBALAMIN 500 MCG TAB PO SCH (09:18)
[2017-07-11] MEDS: DIGOXIN 125 MCG TAB PO SCH (09:18)
[2017-07-11] MEDS: ASPIRIN 81 MG PO SCH (09:18)
[2017-07-11] MEDS: hydrALAZINE HCL 25 MG TAB PO SCH ×2 (09:19→20:43)
[2017-07-11] MEDS: METHADONE 5 MG TAB PO SCH ×3 (09:22→20:53)
[2017-07-11] MEDS: DICLOFENAC SODIUM GEL 100 GM TUBE TOPICAL PRN (11:30)
[2017-07-11] MEDS: VIT A,C & E-LUTEIN-MINERALS 1 EACH TAB PO SCH (11:34)
[2017-07-11] MEDS: MULTIVITAMINS, THERA 1 EACH TAB PO SCH (11:34)
[2017-07-11] MEDS: VITAMIN E (DL,TOCOPHERYL ACET) 400 UNIT CAP PO SCH (11:34)
[2017-07-11 11:48] LABS: Glucose,Whole Blood 84 mg/dL (75-99)
--- NOTE | 2017-07-11 16:12 | P.PN ---
Subjective Progress Note Date: 07/11/17 This is a 76-year-old male patient who presented to the emergency department with shortness of breath, cough with productive brown sputum. The patient was treated as an outpatient for a sinus infection. On admission the patient was found to be in atrial fibrillation with rapid ventricular response. He follows with Dr. BEN Gardner on a regular basis. He underwent unsuccessful cardioversion in September 2016. He has been on beta kavitha and anticoagulant. Chest x-ray showed evidence of congestive heart failure and BNP level was elevated. Patient had elevated troponins likely secondary to supply demand mismatch. He denies any chest discomfort, no shortness of breath at rest. 07/10/2017 Patient was seen and examined this morning, continues to be short of breath, he is feeling somewhat better however. Echocardiogram with Doppler study performed here showed an ejection fraction of 35-40%. Patient's prior echo was in the range of 55%. Patient continues to be in atrial fibrillation, heart rate in the 90s to low 100s today. Because of the low ejection fraction, we will discontinue the IV Cardizem drip, patient is also getting Norvasc, we will discontinue this. We will start the patient on amiodarone monitoring of the INR closely, he is also on Lanoxin, we will monitor these levels closely as well. We will discontinue the patient's LOLY inhibitor and in 48 hours start the patient on Entresto. 07/11/2017 Patient was seen and examined this morning, continues to feel short of breath however somewhat improved. Blood pressure 136/70 with a heart rate of 88. 96% on 2 L of oxygen. Continues to be in atrial fibrillation, rate under good control today. Consultation with Dr. Frost will be requested for possible ablation. Objective - Vital Signs Vital signs: Vital Signs Temp 97.3 F L 07/11/17 12:00 Pulse 100 07/11/17 15:33 Resp 16 07/11/17 15:33 BP 136/77 07/11/17 12:00 Pulse Ox 96 07/11/17 12:00 Intake & Output 07/10/17 07/11/17 07/11/17 18:59 06:59 18:59 Intake Total 720 256.370 889.065 Output Total 0650 596 6664 Balance -280 -393.630 -160.935 Weight 137.5 kg 110.9 kg Intake: Intake, IV Titration 256.370 199.065 Amount Amiodarone 450 mg In 256.370 199.065 Dextrose 5% in Water 250 ml @ 1 MG/MIN 34.53 mls/ hr IV .Q7H31M [facility] Rx#: [id number] Oral 720 690 Output: Urine 9683 584 1678 Other: Voiding Method Urinal Urinal - Exam PHYSICAL EXAMINATION: HEENT: Head is atraumatic, normocephalic. Pupils equal, round. Neck is supple. There is elevated jugular venous pressure. HEART EXAMINATION: S1 and S2 irregularly irregular a systolic murmur is heard. CHEST EXAMINATION: His reveal some scattered coarse rhonchi throughout. ABDOMEN: Soft, nontender. Bowel sounds are heard. No organomegaly noted. EXTREMITIES: 2+ peripheral pulses with evidence of peripheral edema and no calf tenderness noted. NEUROLOGIC patient is awake, alert and oriented -3. . - Labs CBC & Chem 7: 07/08/17 13:30 07/08/17 13:30 Labs: Abnormal Lab Results - Last 24 Hours (Table) 07/10/17 07/11/17 07/11/17 Range/Units 16:33 05:44 06:23 PT 25.6 H (9.0-12.0) sec INR 2.9 H (<1.2) POC Glucose (mg/dL) 145 H 120 H (75-99) mg/dL Microbiology - Last 24 Hours (Table) 07/08/17 13:30 Blood Culture - Preliminary Blood No Growth after 72 hours 07/09/17 11:45 Gram Stain - Final Sputum Sputum Culture - Final Assessment and Plan Plan: Assessment and plan #1 diastolic congestive heart failure acute on chronic #2 chronic persistent atrial fibrillation, on Coumadin for anticoagulation. #3 diabetes #4 hyperlipidemia Number 5 history of CVA #6 coronary artery disease with prior ARMHOLE RAISER LOCKSTITCH to the LAD in 2001 7 hypertension Plan Echocardiogram with Doppler study was performed which revealed an ejection fraction of 35%. IV amiodarone was discontinued, we will start the patient on oral amiodarone. Consultation Dr. Frost will also be requested. INR today 2.9. DNP note has been reviewed, I agree with a documented findings and plan of care. Patient was seen and examined.
[2017-07-11 16:59] LABS: Glucose,Whole Blood 121 mg/dL (75-99)
[2017-07-11] MEDS: ATORVASTATIN 10 MG TAB PO SCH (20:43)
[2017-07-11] MEDS: WARFARIN 2.5 MG TAB PO SCH (20:43)
[2017-07-11] MEDS: MONTELUKAST 10 MG TAB PO SCH (20:43)
[2017-07-11] MEDS: AMIODARONE 200 MG TAB PO SCH (20:44)
[2017-07-11] MEDS: ALPRAZolam 0.25 MG TAB PO PRN (20:53)
[2017-07-11 21:04] LABS: Glucose,Whole Blood 273 mg/dL (75-99)
--- NOTE | 2017-07-12 00:07 | PN ---
PROGRESS NOTE DATE OF SERVICE: 07/11/2017 PRESENTING COMPLAINT: Atrial fibrillation. INTERVAL HISTORY: This patient presented with possible acute MT, CHF exacerbation, atrial fibrillation. The patient remains in atrial fibrillation and status post IV amiodarone. The patient's breathing is far more stable, tolerating his diet, sitting up on a chair. REVIEW OF SYSTEMS: Done for constitutional, cardiovascular, GI, pulmonary; relevant findings as above. CURRENT MEDICATIONS: Reviewed that include: 1. DuoNeb. 2. P.o. Cordarone. 3. Aspirin. 4. Lipitor. 5. P.o. Ceftin. 6. P.o. digoxin. 7. Lasix 60 mg q.8 IV. 8. Hydralazine. 9. Lopressor 100 q.12. 10.Coumadin. EXAMINATION: Temperature 97.3, pulse 101, respirations 18, blood pressure 132/77, pulse ox 96% on 2L. GENERAL APPEARANCE: Sitting up on a chair, comfortable. EYES: Pupils equal. Conjunctivae normal. HEENT: External nose and ears normal. Oral cavity normal. Decreased hearing. NECK: JVD not raised. Mass not palpable. RESPIRATORY: Effort increased. LUNGS: Decreased breath sounds. CARDIOVASCULAR: Heart sounds irregular. No edema. ABDOMEN: Soft, nontender. Liver and spleen not palpable. PSYCHIATRY: Alert and oriented x3. Mood and affect normal. NEUROLOGICAL: Power on the right side 3/5 with hand contracture. INVESTIGATIONS: INR 2.9. Accu-Cheks are noted. ASSESSMENT: 1. Possible acute non ST elevation myocardial infarction in a patient with known coronary artery disease. 2. Acute congestive heart failure exacerbation from ischemic cardiomyopathy, ejection fraction 30%-35% with contribution from atrial fibrillation. 3. Persistent atrial fibrillation, rate now better controlled. 4. Diabetes mellitus type 2, chronically on insulin, uncontrolled with hyperglycemia. 5. Hyperlipidemia. 6. Essential hypertension. 7. Chronic fibromyalgia. 8. Hiatal hernia. 9. 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 11.Peripheral neuropathy secondary to diabetes. 12.Coronary artery disease with prior history of stent. 13.Depression, not otherwise specified. 14.Gait dysfunction. Uses a walker at baseline. 15.Acute chronic obstructive pulmonary disease exacerbation in an ex-smoker, improved. 16.Possible pneumonia. Patient is on oral antibiotic. PLAN: The patient is switched over to oral amiodarone. Cardiology is consulted. Dr. Frost from EP for further intervention. INR is therapeutic. Care was discussed the patient and at the bedside. Follow. MMODL / IJN: [id number] /
[2017-07-12 06:01] LABS: Glucose,Whole Blood 151 mg/dL (75-99)
[2017-07-12 06:30] LABS: INR 2.2 (<1.2)
[2017-07-12] MEDS: metFORMIN 500 MG TAB PO SCH ×2 (06:46→17:45)
[2017-07-12] MEDS: PANTOPRAZOLE 40 MG TABLET PO SCH (06:47)
[2017-07-12] MEDS: INSULIN ASPART 100 UNIT/ML 1 ML 10 ML VIAL SQ SCH ×7 (06:48→21:13)
[2017-07-12] MEDS: IPRATROPIUM-ALBUTEROL 3 ML NEB INHALATION SCH ×4 (08:28→20:13)
[2017-07-12] MEDS: FUROSEMIDE 10 MG/ML 10 ML VIAL IV SCH (08:59)
[2017-07-12] MEDS: METHADONE 5 MG TAB PO SCH ×3 (09:00→21:14)
[2017-07-12] MEDS: METOPROLOL TARTRATE 50 MG TAB PO SCH ×2 (09:01→20:04)
[2017-07-12] MEDS: ASPIRIN 81 MG PO SCH (09:02)
[2017-07-12] MEDS: SERTRALINE 100 MG TAB PO SCH (09:02)
[2017-07-12] MEDS: CEFUROXIME 250 MG TAB PO SCH ×2 (09:03→20:03)
[2017-07-12] MEDS: AMIODARONE 200 MG TAB PO SCH ×3 (09:04→21:14)
[2017-07-12] MEDS: hydrALAZINE HCL 25 MG TAB PO SCH ×2 (09:04→20:04)
[2017-07-12] MEDS: CYANOCOBALAMIN 500 MCG TAB PO SCH (09:04)
[2017-07-12] MEDS: DIGOXIN 125 MCG TAB PO SCH (09:05)
[2017-07-12] MEDS: hydrOXYzine HCL 10 MG TAB PO SCH ×3 (09:05→21:14)
[2017-07-12] MEDS: INSULIN DETEMIR 100 UNIT/ML 10 ML VIAL SQ SCH (09:07)
[2017-07-12 11:29] LABS: Glucose,Whole Blood 296 mg/dL (75-99)
[2017-07-12] MEDS: VITAMIN E (DL,TOCOPHERYL ACET) 400 UNIT CAP PO SCH (11:57)
[2017-07-12] MEDS: MULTIVITAMINS, THERA 1 EACH TAB PO SCH (11:57)
[2017-07-12] MEDS: VIT A,C & E-LUTEIN-MINERALS 1 EACH TAB PO SCH (11:57)
[2017-07-12 14:12] LABS: Glucose,Whole Blood 92 mg/dL (75-99)
[2017-07-12 14:21] LABS: Anion Gap 11 mmol/L; Calcium 8.4 mg/dL (8.4-10.2); Carbon Dioxide 34 mmol/L (22-30); Chloride 93 mmol/L (98-107); Glucose 105 mg/dL (74-99); Sodium 138 mmol/L (137-145)
[2017-07-12 14:23] LABS: Blood Urea Nitrogen 22 mg/dL (9-20); Potassium 4.3 mmol/L (3.5-5.1)
--- NOTE | 2017-07-12 15:03 | P.PN ---
Subjective Progress Note Date: 07/12/17 This is a 76-year-old male patient who presented to the emergency department with shortness of breath, cough with productive brown sputum. The patient was treated as an outpatient for a sinus infection. On admission the patient was found to be in atrial fibrillation with rapid ventricular response. He follows with Dr. BEN Gardner on a regular basis. He underwent unsuccessful cardioversion in September 2016. He has been on beta kavitha and anticoagulant. Chest x-ray showed evidence of congestive heart failure and BNP level was elevated. Patient had elevated troponins likely secondary to supply demand mismatch. He denies any chest discomfort, no shortness of breath at rest. 07/10/2017 Patient was seen and examined this morning, continues to be short of breath, he is feeling somewhat better however. Echocardiogram with Doppler study performed here showed an ejection fraction of 35-40%. Patient's prior echo was in the range of 55%. Patient continues to be in atrial fibrillation, heart rate in the 90s to low 100s today. Because of the low ejection fraction, we will discontinue the IV Cardizem drip, patient is also getting Norvasc, we will discontinue this. We will start the patient on amiodarone monitoring of the INR closely, he is also on Lanoxin, we will monitor these levels closely as well. We will discontinue the patient's LOLY inhibitor and in 48 hours start the patient on Entresto. 07/11/2017 Patient was seen and examined this morning, continues to feel short of breath however somewhat improved. Blood pressure 136/70 with a heart rate of 88. 96% on 2 L of oxygen. Continues to be in atrial fibrillation, rate under good control today. Consultation with Dr. Frost will be requested for possible ablation. 07/12/2017 Patient was seen and examined this morning, breathing is much improved overall. INR today is 2.2. We will discontinue the IV Lasix today and start the patient on oral diuretics. Repeat chest x-ray in the morning. Patient will also be seen in consultation by Dr. Frost this afternoon or tomorrow morning. Plan for possible discharge home in 24 hours if stable. Objective - Vital Signs Vital signs: Vital Signs Temp 98.5 F 07/12/17 12:00 Pulse 84 07/12/17 12:00 Resp 18 07/12/17 12:00 BP 130/74 07/12/17 12:00 Pulse Ox 95 07/12/17 12:00 Intake & Output 07/11/17 07/12/17 07/12/17 18:59 06:59 18:59 Intake Total 1129.065 260 Output Total 1050 3450 500 Balance 79.065 -3450 -240 Weight 110 kg Intake: Intake, IV Titration 199.065 Amount Amiodarone 450 mg In 199.065 Dextrose 5% in Water 250 ml @ 1 MG/MIN 34.53 mls/ hr IV .Q7H31M [facility] Rx#: [id number] Oral 930 260 Output: Urine 1050 3450 500 Other: Voiding Method Urinal Urinal # Voids 3 - Exam PHYSICAL EXAMINATION: HEENT: Head is atraumatic, normocephalic. Pupils equal, round. Neck is supple. There is elevated jugular venous pressure. HEART EXAMINATION: S1 and S2 irregularly irregular a systolic murmur is heard. CHEST EXAMINATION: His reveal some scattered coarse rhonchi throughout. ABDOMEN: Soft, nontender. Bowel sounds are heard. No organomegaly noted. EXTREMITIES: 2+ peripheral pulses with no evidence of peripheral edema and no calf tenderness noted. NEUROLOGIC patient is awake, alert and oriented -3. . - Labs CBC & Chem 7: 07/08/17 13:30 07/12/17 13:45 Labs: Abnormal Lab Results - Last 24 Hours (Table) 07/11/17 07/11/17 07/12/17 Range/Units 16:27 21:01 05:44 PT 20.0 H (9.0-12.0) sec INR 2.2 H (<1.2) Chloride (98-107) mmol/L Carbon Dioxide (22-30) mmol/L BUN (9-20) mg/dL Glucose (74-99) mg/dL POC Glucose (mg/dL) 121 H 273 H (75-99) mg/dL 07/12/17 07/12/17 07/12/17 Range/Units 05:59 11:24 13:45 PT (9.0-12.0) sec INR (<1.2) Chloride 93 L (98-107) mmol/L Carbon Dioxide 34 H (22-30) mmol/L BUN 22 H (9-20) mg/dL Glucose 105 H (74-99) mg/dL POC Glucose (mg/dL) 151 H 296 H (75-99) mg/dL Microbiology - Last 24 Hours (Table) 07/08/17 13:30 Blood Culture - Preliminary Blood No Growth after 72 hours Assessment and Plan Plan: Assessment and plan #1 diastolic congestive heart failure acute on chronic #2 chronic persistent atrial fibrillation, on Coumadin for anticoagulation. 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 Repeat chest x-ray tomorrow morning. Patient will be seen in consultation by Dr. Frost. DNP note has been reviewed, I agree with a documented findings and plan of care. Patient was seen and examined.
[2017-07-12] MEDS: FUROSEMIDE 20 MG TAB PO SCH (15:05)
[2017-07-12 15:29] LABS: Glucose,Whole Blood 55 mg/dL (75-99)
[2017-07-12 15:47] LABS: Glucose,Whole Blood 77 mg/dL (75-99)
--- NOTE | 2017-07-12 15:50 | XR ---
EXAMINATION TYPE: XR chest 1V portable DATE OF EXAM: 07/12/2017 CLINICAL HISTORY: Difficulty breathing progress study. History of CHF. TECHNIQUE: Single AP portable upright view of the chest is obtained. COMPARISON: Chest x-ray from 4 days earlier FINDINGS: Cardiomegaly with central vascular congestion is felt present though improved from prior. Suspect improving small bilateral pleural effusions. Underlying infiltrate is difficult to exclude. N o pneumothorax is seen bilaterally. Osseous structures are intact. IMPRESSION: Suspect improving or resolving CHF exacerbation as there is cardiomegaly with small bilat eral pleural effusions and central vascular congestion felt present diminished in prominence from horace or study.
[2017-07-12 16:41] LABS: Glucose,Whole Blood 136 mg/dL (75-99)
--- NOTE | 2017-07-12 19:50 | PN ---
PROGRESS NOTE DATE OF SERVICE: 07/12/2017 PRESENTING COMPLAINT: Tired. INTERVAL HISTORY: This patient presented with possible acute PR, CHF exacerbation, atrial fibrillation. IV Lasix was discontinued by Cardiology today. Breathing is stable. Still remains in atrial fibrillation, though rate has been controlled in around 70s to 80s. EP was consulted. Patient otherwise is tolerating a diet. REVIEW OF SYSTEMS: Done for constitutional, cardiovascular, GI, pulmonary; relevant findings as above. CURRENT MEDICATIONS: Reviewed. They include p.o. Cordarone, p.o. Ceftin, p.o. digoxin, p.o. Lasix. PHYSICAL EXAMINATION: Temperature 98.5, pulse 84, respiration 18, blood pressure 130/74, pulse ox 95% on 2 L. GENERAL APPEARANCE: Propped up in bed. Awake. EYES: Pupils equal. Conjunctivae normal. HEENT: External appearance of nose and ears normal. Oral cavity normal. Decreased hearing. NECK: JVD not raised. Mass not palpable. RESPIRATORY: Effort increased. LUNGS: Decreased breath sounds. CARDIOVASCULAR: Heart sounds irregular. No edema. ABDOMEN: Soft, nontender. Liver and spleen not palpable. PSYCHIATRY: Alert and oriented x3. Mood and affect normal. NEUROLOGICAL: Power on the right side is 3/5 with hand contracture. INVESTIGATIONS: Telemetry shows atrial fibrillation. Potassium 4.3, BUN 22, creatinine 0.85. Accu- Cheks 92, 55, 77, 136. ASSESSMENT: 1. Possible acute azy-SZ-euqptyawg myocardial infarction in a patient with known coronary artery disease. 2. Acute congestive heart failure exacerbation from ischemic cardiomyopathy, ejection fraction 30% to 35%, with contribution from atrial fibrillation, now stabilized. 3. Persistent atrial fibrillation, rate controlled. 4. Diabetes mellitus, type 2, chronically on insulin, uncontrolled with hyperglycemia and hypoglycemia. 5. Hyperlipidemia. 6. Essential hypertension. 7. Chronic fibromyalgia. 8. Hiatal hernia. 9. 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 11.Peripheral neuropathy secondary to diabetes. 12.Coronary artery disease with prior history of stent. 13.Depression not otherwise specified. 14.Gait dysfunction; uses a walker at baseline. 15.Acute chronic obstructive pulmonary disease exacerbation, improved. 16.Pneumonia, much improved. Will discontinue the antibiotic. PLAN: Patient's antibiotics will be discontinued. Patient will be switched over to p.o. Lasix. Otherwise patient is medically stable. Discussed with the patient and his at the bedside. MMLAURENL / IJN: [id number] /
[2017-07-12] MEDS: ATORVASTATIN 10 MG TAB PO SCH (20:04)
[2017-07-12] MEDS: WARFARIN 2.5 MG TAB PO SCH (20:04)
[2017-07-12] MEDS: MONTELUKAST 10 MG TAB PO SCH (20:04)
[2017-07-12 21:10] LABS: Glucose,Whole Blood 328 mg/dL (75-99)
[2017-07-12] MEDS: ALPRAZolam 0.25 MG TAB PO PRN (21:16)
[2017-07-13 06:16] LABS: Glucose,Whole Blood 184 mg/dL (75-99)
[2017-07-13 06:33] LABS: INR 2.1 (<1.2); Prothrombin Time 19.3 sec (9.0-12.0)
[2017-07-13 06:35] LABS: Anion Gap 8 mmol/L; Blood Urea Nitrogen 20 mg/dL (9-20); Calcium 8.4 mg/dL (8.4-10.2); Carbon Dioxide 35 mmol/L (22-30); Chloride 90 mmol/L (98-107); Glucose 179 mg/dL (74-99); Potassium 4.3 mmol/L (3.5-5.1); Sodium 133 mmol/L (137-145)
[2017-07-13] MEDS: INSULIN ASPART 100 UNIT/ML 1 ML 10 ML VIAL SQ SCH ×7 (06:45→22:29)
[2017-07-13] MEDS: metFORMIN 500 MG TAB PO SCH ×2 (06:46→17:14)
[2017-07-13] MEDS: PANTOPRAZOLE 40 MG TABLET PO SCH (06:56)
[2017-07-13] MEDS: FUROSEMIDE 20 MG TAB PO SCH ×2 (08:44→15:59)
[2017-07-13] MEDS: CEFUROXIME 250 MG TAB PO SCH ×2 (08:44→19:47)
[2017-07-13] MEDS: METOPROLOL TARTRATE 50 MG TAB PO SCH ×2 (08:44→19:47)
[2017-07-13] MEDS: hydrOXYzine HCL 10 MG TAB PO SCH ×3 (08:44→22:30)
[2017-07-13] MEDS: CYANOCOBALAMIN 500 MCG TAB PO SCH (08:44)
[2017-07-13] MEDS: SERTRALINE 100 MG TAB PO SCH (08:44)
[2017-07-13] MEDS: DIGOXIN 125 MCG TAB PO SCH (08:45)
[2017-07-13] MEDS: ASPIRIN 81 MG PO SCH (08:45)
[2017-07-13] MEDS: SACUBITRIL/VALSARTAN 24 MG-26 MG TABLET PO SCH ×2 (08:45→19:46)
[2017-07-13] MEDS: hydrALAZINE HCL 25 MG TAB PO SCH ×2 (08:45→19:47)
[2017-07-13] MEDS: AMIODARONE 200 MG TAB PO SCH ×3 (08:45→22:30)
[2017-07-13] MEDS: METHADONE 5 MG TAB PO SCH ×3 (08:45→22:33)
[2017-07-13] MEDS: VITAMIN E (DL,TOCOPHERYL ACET) 400 UNIT CAP PO SCH (08:46)
[2017-07-13] MEDS: VIT A,C & E-LUTEIN-MINERALS 1 EACH TAB PO SCH (08:46)
[2017-07-13] MEDS: INSULIN DETEMIR 100 UNIT/ML 10 ML VIAL SQ SCH (08:46)
[2017-07-13] MEDS: MULTIVITAMINS, THERA 1 EACH TAB PO SCH (08:47)
[2017-07-13] MEDS: IPRATROPIUM-ALBUTEROL 3 ML NEB INHALATION SCH ×4 (08:51→21:29)
[2017-07-13 09:14] LABS: Glucose,Whole Blood 188 mg/dL (75-99)
[2017-07-13 11:58] LABS: Glucose,Whole Blood 51 mg/dL (75-99)
[2017-07-13 12:13] LABS: Glucose,Whole Blood 94 mg/dL (75-99)
--- NOTE | 2017-07-13 14:39 | P.PN ---
Subjective Progress Note Date: 07/13/17 This is a 76-year-old male patient who presented to the emergency department with shortness of breath, cough with productive brown sputum. The patient was treated as an outpatient for a sinus infection. On admission the patient was found to be in atrial fibrillation with rapid ventricular response. He follows with Dr. BEN Gardner on a regular basis. He underwent unsuccessful cardioversion in September 2016. He has been on beta kavitha and anticoagulant. Chest x-ray showed evidence of congestive heart failure and BNP level was elevated. Patient had elevated troponins likely secondary to supply demand mismatch. He denies any chest discomfort, no shortness of breath at rest. 07/10/2017 Patient was seen and examined this morning, continues to be short of breath, he is feeling somewhat better however. Echocardiogram with Doppler study performed here showed an ejection fraction of 35-40%. Patient's prior echo was in the range of 55%. Patient continues to be in atrial fibrillation, heart rate in the 90s to low 100s today. Because of the low ejection fraction, we will discontinue the IV Cardizem drip, patient is also getting Norvasc, we will discontinue this. We will start the patient on amiodarone monitoring of the INR closely, he is also on Lanoxin, we will monitor these levels closely as well. We will discontinue the patient's LOLY inhibitor and in 48 hours start the patient on Entresto. 07/11/2017 Patient was seen and examined this morning, continues to feel short of breath however somewhat improved. Blood pressure 136/70 with a heart rate of 88. 96% on 2 L of oxygen. Continues to be in atrial fibrillation, rate under good control today. Consultation with Dr. Frost will be requested for possible ablation. 07/12/2017 Patient was seen and examined this morning, breathing is much improved overall. INR today is 2.2. We will discontinue the IV Lasix today and start the patient on oral diuretics. Repeat chest x-ray in the morning. Patient will also be seen in consultation by Dr. Frost this afternoon or tomorrow morning. Plan for possible discharge home in 24 hours if stable. 07/13/2017 Patient was seen and examined this morning, sitting up in the chair at bedside. INR today 2.1, potassium 4.3, BUN 20, creatinine 0.7. Currently on oral diuretics. Patient will be seen today by Dr. Reyna, we'll plan on discharge home in 24 hours. Objective - Vital Signs Vital signs: Vital Signs Temp 97.7 F 07/13/17 12:00 Pulse 92 07/13/17 12:19 Resp 18 07/13/17 12:00 BP 132/70 07/13/17 12:00 Pulse Ox 94 L 07/13/17 12:00 Intake & Output 07/12/17 07/13/17 07/13/17 18:59 06:59 18:59 Intake Total 378 Output Total 500 1300 Balance -122 -1300 Weight 110.5 kg Intake: Oral 378 Output: Urine 500 1300 Other: Voiding Method Urinal Urinal Urinal # Voids 1 # Bowel Movements 1 - Exam PHYSICAL EXAMINATION: HEENT: Head is atraumatic, normocephalic. Pupils equal, round. Neck is supple. There is elevated jugular venous pressure. HEART EXAMINATION: S1 and S2 irregularly irregular a systolic murmur is heard. CHEST EXAMINATION: His reveal some scattered coarse rhonchi throughout. ABDOMEN: Soft, nontender. Bowel sounds are heard. No organomegaly noted. EXTREMITIES: 2+ peripheral pulses with no evidence of peripheral edema and no calf tenderness noted. NEUROLOGIC patient is awake, alert and oriented -3. . - Labs CBC & Chem 7: 07/08/17 13:30 07/13/17 05:36 Labs: Abnormal Lab Results - Last 24 Hours (Table) 07/12/17 07/12/17 07/12/17 Range/Units 15:27 16:30 21:08 PT (9.0-12.0) sec INR (<1.2) Sodium (137-145) mmol/L Chloride (98-107) mmol/L Carbon Dioxide (22-30) mmol/L Glucose (74-99) mg/dL POC Glucose (mg/dL) 55 L 136 H 328 H (75-99) mg/dL 07/13/17 07/13/17 07/13/17 Range/Units 05:36 05:36 06:14 PT 19.3 H (9.0-12.0) sec INR 2.1 H (<1.2) Sodium 133 L (137-145) mmol/L Chloride 90 L (98-107) mmol/L Carbon Dioxide 35 H (22-30) mmol/L Glucose 179 H (74-99) mg/dL POC Glucose (mg/dL) 184 H (75-99) mg/dL 07/13/17 07/13/17 Range/Units 09:11 11:33 PT (9.0-12.0) sec INR (<1.2) Sodium (137-145) mmol/L Chloride (98-107) mmol/L Carbon Dioxide (22-30) mmol/L Glucose (74-99) mg/dL POC Glucose (mg/dL) 188 H 51 L (75-99) mg/dL Microbiology - Last 24 Hours (Table) 07/08/17 13:30 Blood Culture - Preliminary Blood No Growth after 96 hours Assessment and Plan Plan: Assessment and plan #1 diastolic congestive heart failure acute on chronic #2 chronic persistent atrial fibrillation, on Coumadin for anticoagulation. 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 He will be seen in consultation today by Dr. Reyna, plan for possible discharge home in 24 hours if stable DNP note has been reviewed, I agree with a documented findings and plan of care. Patient was seen and examined.
[2017-07-13 17:06] LABS: Glucose,Whole Blood 219 mg/dL (75-99)
--- NOTE | 2017-07-13 19:05 | PN ---
PROGRESS NOTE DATE OF SERVICE: 07/13/2017 PRESENTING COMPLAINT: Atrial fib. INTERVAL HISTORY: Patient presented with possible acute CA, CHF exacerbation, atrial fibrillation. Breathing is stable. Remains in atrial fibrillation. Heart rate controlled, pending input from Dr. Frost. Otherwise, patient is doing good, tolerating a diet. No new issues. REVIEW OF SYSTEMS: Done for constitutional, cardiovascular, GI, pulmonary; relevant findings as above. CURRENT MEDICATIONS: Reviewed. EXAMINATION: Temperature 97/7, pulse 74, respirations 16, blood pressure 138/70, pulse ox 94% on room air. GENERAL APPEARANCE: Sitting up in a chair, comfortable. EYES: Pupils equal. Conjunctivae normal. HEENT: External nose and ears normal. Oral cavity normal. Decreased hearing. NECK: JVD not raised. Mass not palpable. RESPIRATORY: Effort normal. LUNGS: Decreased breath sounds. CARDIOVASCULAR: Heart sounds irregular. No edema. ABDOMEN: Soft, nontender. Liver and spleen not palpable. PSYCHIATRY: Alert and oriented x3. Mood and affect normal. NEUROLOGICAL: Power on the right side is 3/5 with hand contracture. INVESTIGATIONS: Accu-Cheks 51, 94, 219. ASSESSMENT: 1. Possible acute non ST elevation myocardial infarction in a patient with known coronary artery disease. 2. Acute congestive heart failure exacerbation from ischemic cardiomyopathy, ejection fraction 30%-35% with contribution from atrial fibrillation, now stabilized. 3. Persistent atrial fibrillation, rate controlled. 4. Diabetes mellitus type 2, chronically on insulin, uncontrolled with hyper- and hypoglycemia. 5. Hyperlipidemia. 6. Essential hypertension. 7. Chronic fibromyalgia. 8. Hiatal hernia. 9. 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 11.Peripheral neuropathy secondary to diabetes. 12.Coronary artery disease, prior history of stent. 13.Depression, not otherwise specified. 14.Gait dysfunction, uses a walker at baseline. 15.Acute chronic obstructive pulmonary disease exacerbation, stabilized. 16.Pneumonia, much improved. Will complete the oral course of antibiotic. PLAN: Overall doing much better. Awaiting input from EP. Care was discussed the patient and . Questions were answered. MMODL / IJN: [id number] /
[2017-07-13] MEDS: ATORVASTATIN 10 MG TAB PO SCH (19:46)
[2017-07-13] MEDS: WARFARIN 2.5 MG TAB PO SCH (19:48)
[2017-07-13] MEDS: MONTELUKAST 10 MG TAB PO SCH (19:48)
[2017-07-13 21:04] LABS: Glucose,Whole Blood 100 mg/dL (75-99)
[2017-07-13 22:16] LABS: Glucose,Whole Blood 124 mg/dL (75-99)
[2017-07-13] MEDS: ALPRAZolam 0.25 MG TAB PO PRN (22:30)
[2017-07-14 06:18] LABS: Glucose,Whole Blood 175 mg/dL (75-99)
[2017-07-14 07:03] LABS: INR 1.9 (<1.2); Prothrombin Time 17.7 sec (9.0-12.0)
[2017-07-14] MEDS: INSULIN ASPART 100 UNIT/ML 1 ML 10 ML VIAL SQ SCH ×6 (08:11→17:04)
[2017-07-14] MEDS: metFORMIN 500 MG TAB PO SCH ×2 (08:17→17:04)
[2017-07-14] MEDS: METOPROLOL TARTRATE 50 MG TAB PO SCH (08:17)
[2017-07-14] MEDS: AMIODARONE 200 MG TAB PO SCH (08:17)
[2017-07-14] MEDS: DIGOXIN 125 MCG TAB PO SCH (08:17)
[2017-07-14] MEDS: MULTIVITAMINS, THERA 1 EACH TAB PO SCH (08:17)
[2017-07-14] MEDS: VITAMIN E (DL,TOCOPHERYL ACET) 400 UNIT CAP PO SCH (08:17)
[2017-07-14] MEDS: ASPIRIN 81 MG PO SCH (08:17)
[2017-07-14] MEDS: SERTRALINE 100 MG TAB PO SCH (08:17)
[2017-07-14] MEDS: FUROSEMIDE 20 MG TAB PO SCH (08:18)
[2017-07-14] MEDS: hydrOXYzine HCL 10 MG TAB PO SCH (08:18)
[2017-07-14] MEDS: VIT A,C & E-LUTEIN-MINERALS 1 EACH TAB PO SCH (08:18)
[2017-07-14] MEDS: CYANOCOBALAMIN 500 MCG TAB PO SCH (08:18)
[2017-07-14] MEDS: PANTOPRAZOLE 40 MG TABLET PO SCH (08:18)
[2017-07-14] MEDS: SACUBITRIL/VALSARTAN 24 MG-26 MG TABLET PO SCH (08:19)
[2017-07-14] MEDS: hydrALAZINE HCL 25 MG TAB PO SCH (08:20)
[2017-07-14] MEDS: IPRATROPIUM-ALBUTEROL 3 ML NEB INHALATION SCH ×3 (08:21→16:06)
[2017-07-14] MEDS: METHADONE 5 MG TAB PO SCH (08:25)
[2017-07-14 08:46] VITALS: RESP 16; TEMP 96.4
[2017-07-14] MEDS ORDERED: INSULIN DETEMIR 100 UNIT/ML 10 ML VIAL SQ SCH (09:00)
[2017-07-14 11:45] VITALS: BP 126/71
--- NOTE | 2017-07-14 12:04 | P.CRDCN ---
History of Present Illness Consult reason: atrial fibrillation, congestive heart failure, shortness of breath History of present illness: Patient admitted on July 08 with shortness of breath, cough with productive brown sputum. He was found to be in atrial fibrillation with RVR. He is currently on beta blockers and anticoagulation. He denied any chest discomfort at rest I was consulted for further management of atrial fibrillation by Dr. Giordano since he has failed and electrical cardioversion last year. He is currently on oral amiodarone Patient still mildly short of breath at rest. He remains in atrial fibrillation with recently controlled ventricular response. Twelve-lead ECG from 08 July shows atrial fibrillation with RVR narrow QRS. Heart rate 1:30 beats a minute. Chest x-ray consistent with CHF 2-D echo and Doppler study shows left frontal ejection fraction of 35-40% with evidence of wall motion abnormalities In 2014 his left ventricular ejection fraction was 45-50% with moderate LVH and evidence of diastolic dysfunction. Left atrium was moderately dilated at that time. Pulmonary artery pressure upper limits of normal Past history of coronary artery disease and stenting of the LAD in 2001 Past history of atrial fibrillation and electrical cardioversion that was successful in 2013, unsuccessful ostia, maximum dose of 250 J used did adult- onset diabetes, hypertension, dyslipidemia, coronary artery disease, coronary stenting History of orthopedic surgery Impression Consulted for evaluation of this 76-year-old gentleman with acute on chronic CHF with chronic systolic dysfunction and atrial fibrillation with RVR Persistent atrial fibrillation with RVR, symptomatic, precipitating CHF exacerbation Admitted with CHF exacerbation with A. fib with RVR Attempt at cardioversion last year. Rate control and granulation start G pursued. 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 Troponins were abnormal Adult-onset diabetes, currently on insulin Suggest TSH level Reduce amiodarone to 200 mg by mouth daily within a month Attempt electrical cardioversion once again If this fails Pursued rate control strategy with metoprolol succinate since patient has a cardio myopathy Pursue CAD workup since his troponins are abnormal Future considerations include implantation of a biventricular device and AV node ablation if the rate control strategy fails or if he continues to have persistent heart failure CHF management and consideration for ICD implantation (BiV + AVN ablation) in view of his cardio myopathy after excluding any progression of coronary artery disease Past Medical History Past Medical History: Atrial Fibrillation, Asthma, CVA/TIA, Diabetes Mellitus, Eye Disorder, Fibromyalgia, Hyperlipidemia, Hypertension, Musculoskeletal Disorder, Pneumonia Additional Past Medical History / Comment(s): Hiatal Hernia. Glaucoma. Rt sided weakness from stroke (2008). HERNIATED DISC, BACK PAIN. NEUROPATHY FEET. CARDIOVERSION 10/14/16 UNSUCCESSFUL. History of Any Multi-Drug Resistant Organisms: None Reported Past Surgical History: Heart Catheterization With Stent, Orthopedic Surgery Additional Past Surgical History / Comment(s): nasal/sinus surgery, rt elbow, cataracts. CARDIOVERSION 10/14/16. Past Anesthesia/Blood Transfusion Reactions: No Reported Reaction Date of Last Stent Placement:: 2001 Past Psychological History: Depression Smoking Status: Former smoker Past Alcohol Use History: None Reported Past Drug Use History: None Reported - Past Family History Mother Family Medical History: No Reported History Father Family Medical History: Cancer Medications and Allergies Home Medications Medication Instructions Recorded Confirmed Type Aspirin 162 mg PO HS 11/26/13 07/08/17 History INSULIN LISPRO (humaLOG) [humaLOG] 10 units SQ PC-TID 11/26/13 07/08/17 History Lovastatin [Mevacor] 20 mg PO HS 11/26/13 07/08/17 History Methadone [Dolophine] 5 mg PO Q8H 11/26/13 07/08/17 History Montelukast Sodium [Singulair] 10 mg PO HS 11/26/13 07/08/17 History hydrOXYzine HCL [Atarax] 10 mg PO TID 11/26/13 07/08/17 History metFORMIN HCL 1,000 mg PO BID 11/26/13 07/08/17 History Ipratropium-Albuterol Nebulize 3 ml INHALATION RT-TID PRN 10/10/16 07/08/17 History [Duoneb 0.5 mg-3 mg/3 ml Soln] Multivitamins, Thera [Multivitamin 1 tab PO DAILY 10/10/16 07/08/17 History (formulary)] Omeprazole [PriLOSEC] 20 mg PO BID 10/10/16 07/08/17 History Sertraline [Zoloft] 100 mg PO DAILY 10/10/16 07/08/17 History Vitamin E (Dl,Tocopheryl Acet) 400 unit PO 1200 10/10/16 07/08/17 History [Vitamin E] Vits A,C,E/Lutein/Minerals 1 tab PO DAILY 10/10/16 07/08/17 History [Ocuvite with Lutein Tablet] amLODIPine BESYLATE [Norvasc] 5 mg PO HS 10/10/16 07/08/17 History Cyanocobalamin (Vitamin B-12) 1,000 mcg PO DAILY 11/11/16 07/08/17 History [Vitamin B-12] Metoprolol Tartrate [Lopressor] 50 mg PO BID 11/11/16 07/08/17 History Amoxicillin 875 mg PO BID 07/08/17 07/08/17 History Estazolam 1 mg PO DAILY PRN 07/08/17 07/08/17 History Fluticasone Nasal [place] [Flonase 2 spray EA NOSTRIL DAILY 07/08/17 07/08/17 History Nasal [place]] Insulin Glargine,Hum.rec.anlog 30 unit SQ DAILY 07/08/17 07/08/17 History [Maral Perla] Liraglutide [Victoza 2-Garry] 0.6 mg SQ DAILY 07/08/17 07/08/17 History Lisinopril 40 mg PO DAILY 07/08/17 07/08/17 History Metoprolol Tartrate [Lopressor] 25 mg PO BID 07/08/17 07/08/17 History Nitroglycerin Sl Tabs [Nitrostat] 0.4 mg SUBLINGUAL Q5M PRN 07/08/17 07/08/17 History Temazepam [Restoril] 15 mg PO HS 07/08/17 07/08/17 History Testosterone Cypionate 200 mg IM Q14D 07/08/17 07/08/17 History [Depo-Testosterone] Triamcinolone 0.1% Cream [Kenalog] 1 applicatio TOPICAL TID PRN 07/08/17 History Warfarin Sodium [Coumadin] 4 mg PO DAILY 07/08/17 07/08/17 History hydrALAZINE HCL [Apresoline] 25 mg PO BID 07/08/17 07/08/17 History Allergies Allergy/AdvReac Type Severity Reaction Status Date / Time Sulfa (Sulfonamide Allergy Rash/Hives Verified 07/08/17 13:55 Antibiotics) Physical Exam Vitals: Vital Signs Temp Pulse Pulse Resp BP Pulse Ox 07/14/17 11:44 64 16 126/71 93 L 07/14/17 11:39 76 07/14/17 11:29 84 07/14/17 11:21 16 07/14/17 08:30 80 07/14/17 08:22 78 07/14/17 08:00 96.4 F L 63 16 153/93 95 07/14/17 04:00 97.2 F L 70 18 117/67 94 L 07/14/17 00:00 72 18 07/13/17 20:00 97.9 F 61 18 130/65 92 L 07/13/17 16:16 97.7 F 64 16 130/72 98 07/13/17 15:48 88 07/13/17 12:19 92 07/13/17 12:10 88 Intake and Output 07/13/17 07/14/17 07/14/17 22:59 06:59 14:59 Intake Total 230 360 Output Total 300 600 Balance -70 -600 360 Intake: Oral 230 360 Output: Urine 300 600 Other: Voiding Method Urinal Urinal Urinal # Voids 1 1 Weight 109.7 kg Results 07/08/17 13:30 07/13/17 05:36 Cardiac Enzymes 07/11/17 07/12/17 07/13/17 Range/Units 06:23 05:44 05:36 PT 25.6 H 20.0 H 19.3 H (9.0-12.0) sec INR 2.9 H 2.2 H 2.1 H (<1.2) 07/14/17 Range/Units 05:40 PT 17.7 H (9.0-12.0) sec INR 1.9 H (<1.2) Coagulation 07/14/17 Range/Units 05:40 PT 17.7 H (9.0-12.0) sec Current Medications Generic Name Dose Route Start Last Admin Trade Name Freq PRN Reason Stop Dose Admin Acetaminophen 650 mg 07/08/17 18:22 07/11/17 20:52 Tylenol Tab PO 650 mg Q6HR PRN Administration Mild Pain or Fever > 100.5 Albuterol/Ipratropium 3 ml 07/09/17 08:00 07/14/17 11:28 Duoneb 0.5 Mg-3 Mg/3 Ml Soln INHALATION 3 ml RT-QID MARCELLE Administration Albuterol/Ipratropium 3 ml 07/08/17 23:31 Duoneb 0.5 Mg-3 Mg/3 Ml Soln INHALATION RT-Q2H PRN Shortness Of Breath Or Wheezing Alprazolam 0.25 mg 07/08/17 18:22 07/13/17 22:30 Xanax PO 0.25 mg Q6HR PRN Administration Anxiety Amiodarone HCl 200 mg 07/11/17 22:00 07/14/17 08:17 Cordarone PO 200 mg TID MARCELLE Administration Aspirin 81 mg 07/11/17 09:00 07/14/17 08:17 Aspirin PO 81 mg DAILY MARCELLE Administration Atorvastatin Calcium 10 mg 07/08/17 21:00 07/13/17 19:46 Lipitor PO 10 mg HS MARCELLE Administration Calcium Carbonate/Glycine 1,000 mg 07/08/17 18:22 Tums PO Q4HR PRN Dyspepsia Cyanocobalamin 1,000 mcg 07/09/17 09:00 07/14/17 08:18 Vitamin B-12 PO 1,000 mcg DAILY MARCELLE Administration Diclofenac Sodium 4 gm 07/09/17 21:12 07/11/17 11:30 Voltaren Gel TOPICAL 4 gm QID PRN Administration Mild Pain Digoxin 125 mcg 07/10/17 09:00 07/14/17 08:17 Lanoxin PO 125 mcg DAILY MARCELLE Administration Furosemide 60 mg 07/12/17 16:00 07/14/17 08:18 Lasix PO 60 mg BID@0900,1600 MARCELLE Administration Hydralazine HCl 25 mg 07/08/17 21:00 07/14/17 08:20 Apresoline PO 25 mg BID MARCELLE Administration Hydroxyzine HCl 10 mg 07/08/17 16:00 07/14/17 08:18 Atarax PO 10 mg TID MARCELLE Administration Insulin Aspart 10 unit 07/08/17 18:30 07/14/17 08:24 Novolog SQ 10 unit PC-TID MARCELLE Administration Insulin Aspart 0 unit 07/11/17 21:04 07/14/17 08:11 Novolog SQ Not Given ACHS [facility] Protocol Insulin Detemir 24 unit 07/14/17 09:00 07/14/17 08:25 Levemir SQ 24 unit DAILY MARCELLE Administration Lactulose 20 gm 07/08/17 18:22 07/10/17 20:22 Cephulac PO 20 gm DAILY PRN Administration Constipation Magnesium Hydroxide 2,400 mg 07/08/17 18:22 Milk Of Magnesia PO DAILY PRN Constipation Melatonin 3 mg 07/08/17 18:22 Melatonin PO HS PRN Insomnia Metformin HCl 1,000 mg 07/08/17 17:30 07/14/17 08:17 Glucophage PO 1,000 mg AC-BID MARCELLE Administration Methadone HCl 5 mg 07/08/17 22:00 07/14/17 08:25 Dolophine PO 5 mg TID MARCELLE Administration Metoprolol Tartrate 100 mg 07/09/17 11:45 07/14/17 08:17 Lopressor PO 100 mg BID MARCELLE Administration Montelukast Sodium 10 mg 07/08/17 21:00 07/13/17 19:48 Singulair PO 10 mg HS MARCELLE Administration Multivitamins 1 each 07/09/17 12:00 07/14/17 08:17 Theragran PO 1 each DAILY@1200 [facility] Administration Multivitamins/Minerals 1 each 07/09/17 12:00 07/14/17 08:18 Ivite PO 1 each DAILY@1200 MARCELLE Administration Naloxone HCl 0.2 mg 07/08/17 18:22 Narcan IV Q2M PRN Opioid Reversal Nitroglycerin 0.4 mg 07/08/17 15:50 Nitrostat SUBLINGUAL Q5M PRN Chest Pain Liraglutide [Victoza 0.6 mg 07/09/17 09:00 07/14/17 08:21 ] SQ Not Given DAILY [facility] Ondansetron HCl 4 mg 07/08/17 18:22 Zofran IVP Q8HR PRN Nausea And Vomiting Pantoprazole Sodium 40 mg 07/09/17 07:30 07/14/17 08:18 Protonix PO 40 mg AC-[id number] [facility] Administration Sacubitril/Valsartan 1 each 07/13/17 08:00 07/14/17 08:19 Entresto 24 Mg-26 Mg Tablet PO 1 each BID@0800,1999 [facility] Administration Sertraline HCl 100 mg 07/09/17 09:00 07/14/17 08:17 Zoloft PO 100 mg DAILY [facility] Administration Triamcinolone Acetonide 1 applic 07/08/17 15:50 07/12/17 15:03 Kenalog TOPICAL 1 applic TID PRN Administration Itching Vitamin E 400 unit 07/09/17 12:00 07/14/17 08:17 Vitamin E PO 400 unit 1200 MARCELLE Administration Warfarin Sodium 2.5 mg 07/09/17 21:00 07/13/17 19:48 Coumadin PO 2.5 mg HS MARCELLE Administration Intake and Output 07/13/17 07/14/17 07/14/17 22:59 06:59 14:59 Intake Total 230 360 Output Total 300 600 Balance -70 -600 360 Intake: Oral 230 360 Output: Urine 300 600 Other: Voiding Method Urinal Urinal Urinal # Voids 1 1 Weight 109.7 kg 07/08/17 13:30 07/13/17 05:36
[2017-07-14 12:08] LABS: Glucose,Whole Blood 209 mg/dL (75-99)
[2017-07-14 15:23] LABS: Glucose,Whole Blood 69 mg/dL (75-99)
[2017-07-14 15:42] LABS: Glucose,Whole Blood 80 mg/dL (75-99)
[2017-07-14 16:08] VITALS: PULSE 80
[2017-07-14 16:26] LABS: Glucose,Whole Blood 62 mg/dL (75-99)
--- NOTE | 2017-07-14 16:49 | DS ---
DISCHARGE SUMMARY DATE OF ADMISSION: 07/08/2017 DATE OF DISCHARGE: 07/14/2017 FINAL DIAGNOSES: 1. Possible acute [id number] myocardial infarction, present on admission. 2. Acute congestive heart failure exacerbation from ischemic cardiomyopathy, ejection fraction 30% to 35%, with contribution from atrial fibrillation. 3. Persistent atrial fibrillation, rate controlled. 4. Diabetes mellitus, type 2, chronically on insulin, uncontrolled with both hyper- and hypoglycemia. 5. Hyperlipidemia. 6. Essential hypertension. 7. Chronic fibromyalgia. 8. Hiatal hernia. 9. 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 11.Peripheral neuropathy secondary to diabetes. 12.Coronary artery disease with prior history of stent. 13.Depression not otherwise specified. 14.Gait dysfunction; uses a walker. 15.Acute chronic obstructive pulmonary disease exacerbation, stabilized. 16.Pneumonia, present on admission. Patient has completed a course of antibiotics. CONSULTATIONS: 1. Dr. Giordano from Cardiology. 2. Dr. Elio Frost from EP. HOSPITAL COURSE: This is a very pleasant 76-year-old patient with multiple medical problems, including chronic right-sided weakness from a prior stroke, presented with increasing shortness of breath, some cough and phlegm, was found to be in atrial fibrillation with rapid ventricular rate. Eventually patient's rate was controlled with current medications. The patient had received IV Lasix. Patient's 2-D echocardiogram showed severe concentric left ventricular hypertrophy, EF of 35% to 40%, and showed multiple wall motion hypokinesis. Patient was euvolemic by the time of discharge. Patient was seen by Dr. Frost today from EP and he said the patient is to continue current dose of amiodarone and then to reduce it to 200 mg a day within the month; and down the road, electrical cardioversion will be attempted. I spoke to Dr. Giordano. Patient is okay to discharge. I spoke to the patient's . Questions were answered. Discharge planning more than 35 minutes. On examination, lungs reveal fair entry. CARDIOVASCULAR: Heart is irregular. Right-sided weakness is 3/5. DISCHARGE MEDICATIONS: NEW MEDICATIONS: 1. Cordarone 200 mg b.i.d. for one month, then 200 mg a day. 2. Voltaren Gel 4 grams topically q.i.d. for joint pain. 3. Lasix 60 mg p.o. b.i.d. 4. NovoLog per scale. 5. Melatonin 3 mg at bedtime p.r.n. 6. Lopressor 100 mg p.o. b.i.d.; new dose. 7. Entresto one tablet p.o. b.i.d. OTHER DISCHARGE MEDICATIONS: 1. Aspirin 162 mg at bedtime. 2. Mevacor 20 mg at bedtime. 3. Singulair 10 mg at bedtime. 4. Atarax 10 mg t.i.d. 5. Metformin 1000 mg p.o. b.i.d. 6. DuoNeb t.i.d. p.r.n. 7. Multivitamin 1 tablet p.o. daily. 8. Prilosec 20 mg b.i.d. 9. Zoloft 100 mg p.o. daily. 10.Ocuvite with lutein 1 tablet p.o. daily. 11.Vitamin B12 1000 mcg p.o. daily. 12.Victoza 0.6 mg subcutaneously daily. 13.Nitrostat 0.4 sublingually q.5 p.r.n. 14.Depo-Testosterone 200 mg IM every 14 days. 15.Kenalog 0.1% topically t.i.d. p.r.n. 16.Hydralazine 25 mg p.o. b.i.d. 17.Estazolam 1 mg p.o. daily p.r.n. 18.Humalog 7 units before meals t.i.d. per scale. 19.Insulin Lantus 24 units subcutaneously daily; new dose. 20.Methadone 5 mg q.8; home dose. 21.Coumadin 4 mg at bedtime. Labs CBC and BMP and INR in 3 days. DISPOSITION: [facility]. Follow up with Dr. Bellamy at [facility]. Follow up with Dr. Yosvany Escalona after discharge from [facility]. Follow up with Cardiology in one week. MMODL / IJN: [id number] /
--- NOTE | 2017-07-14 16:49 | P.PN ---
Subjective Progress Note Date: 07/14/17 This patient is a 76-year-old gentleman who was admitted to the hospital with atypical fibrillation with RVR and also Cardio myopathy and CHF. Patient is feeling much better. His heart rate is well controlled. I'm going to discontinue digoxin. We will continue with amiodarone and rest of the medications. He was seen by Dr. Frost. He suggested cardioversion in few weeks. [place] not a good candidate for ablation. Patient could be discharged home. Follow-up with Dr. BEN Gardner as an outpatient. Objective - Vital Signs Vital signs: Vital Signs Temp 96.4 F L 07/14/17 08:00 Pulse 80 07/14/17 16:12 Resp 16 07/14/17 16:00 BP 126/71 07/14/17 11:44 Pulse Ox 93 L 07/14/17 11:44 Intake & Output 07/13/17 07/14/17 07/14/17 18:59 06:59 18:59 Intake Total 360 230 360 Output Total 600 900 Balance -240 -670 360 Weight 109.7 kg Intake: Oral 360 230 360 Output: Urine 600 900 Other: Voiding Method Urinal Urinal Urinal # Voids 1 - Exam GENERAL EXAM: Patient is alert and oriented and doesn't appear to be in any acute distress. Complaints of being fatigued and tired HEENT: Normocephalic. Normal reaction of pupils, equal size, normal range of extraocular motion. No erythema or exudates in the throat. NECK: No masses, no nuchal rigidity. CHEST: No chest wall deformity. LUNGS: Equal air entry with no crackles or wheeze. HEART: S1 and S2 normal with no audible mumurs or gallops. Regular rhythm, femorals equal on both sides.. ABDOMEN: No hepatosplenomegaly, normal bowel sounds, no guarding or rigidity. SKIN: No rashes CENTRAL NERVOUS SYSTEM: No focal deficits. EXTREMITIES: No cyanosis, clubbing or edema. - Labs CBC & Chem 7: 07/08/17 13:30 07/13/17 05:36 Labs: Abnormal Lab Results - Last 24 Hours (Table) 07/13/17 07/13/17 07/13/17 Range/Units 17:01 21:03 22:15 PT (9.0-12.0) sec INR (<1.2) POC Glucose (mg/dL) 219 H 100 H 124 H (75-99) mg/dL 07/14/17 07/14/17 07/14/17 Range/Units 05:40 06:16 12:03 PT 17.7 H (9.0-12.0) sec INR 1.9 H (<1.2) POC Glucose (mg/dL) 175 H 209 H (75-99) mg/dL 07/14/17 07/14/17 Range/Units 15:03 16:18 PT (9.0-12.0) sec INR (<1.2) POC Glucose (mg/dL) 69 L 62 L (75-99) mg/dL Microbiology - Last 24 Hours (Table) 07/08/17 13:30 Blood Culture - Final Blood No Growth after 144 hours Assessment and Plan (1) Cardiomyopathy Current Visit: Yes Status: Acute Code(s): I42.9 - CARDIOMYOPATHY, UNSPECIFIED SNOMED Code(s): 47517544 (2) Acute exacerbation of chronic obstructive airways disease Current Visit: Yes Status: Acute Code(s): J44.1 - CHRONIC OBSTRUCTIVE PULMONARY DISEASE W (ACUTE) EXACERBATION SNOMED Code(s): 633682509 (3) Rapid atrial fibrillation Current Visit: Yes Status: Acute Code(s): I48.91 - UNSPECIFIED ATRIAL FIBRILLATION SNOMED Code(s): 099742161 Plan: Patient is stable. I will discontinue digoxin. Continue with amiodarone. May be discharged home within next 24 hours. Follow-up with Dr. BEN Gardner.
[2017-07-14 16:50] LABS: Glucose,Whole Blood 88 mg/dL (75-99)
[2017-07-14 18:07] LABS: Glucose,Whole Blood 209 mg/dL (75-99)
[2017-07-14] MEDS ORDERED: AMIODARONE 200 MG TAB PO SCH (21:00)
== END 2017-07-14 18:36 | DRG 280 ==
LOC: EC 12:38 → 6SEL 15:48
PROVIDERS: ADMIT Hospitalist; ATTEND Hospitalist
DX: I21.4 Non-ST elevation (NSTEMI) myocardial infarction (principal); I50.33 Acute on chronic diastolic (congestive) heart failure; J18.9 Pneumonia, unspecified organism; I69.351 Hemiplegia and hemiparesis following cerebral infarction affecting right dominant side; J44.1 Chronic obstructive pulmonary disease with (acute) exacerbation; J44.0 Chronic obstructive pulmonary disease with (acute) lower respiratory infection; E11.42 Type 2 diabetes mellitus with diabetic polyneuropathy; E11.65 Type 2 diabetes mellitus with hyperglycemia; I11.0 Hypertensive heart disease with heart failure; E11.649 Type 2 diabetes mellitus with hypoglycemia without coma; I27.21 Secondary pulmonary arterial hypertension; I07.1 Rheumatic tricuspid insufficiency; I48.2 Chronic atrial fibrillation; I25.5 Ischemic cardiomyopathy; F32.9 Major depressive disorder, single episode, unspecified; I25.10 Atherosclerotic heart disease of native coronary artery without angina pectoris; M79.7 Fibromyalgia; E78.5 Hyperlipidemia, unspecified; K44.9 Diaphragmatic hernia without obstruction or gangrene; M54.9 Dorsalgia, unspecified; R26.9 Unspecified abnormalities of gait and mobility; H40.9 Unspecified glaucoma; Z79.01 Long term (current) use of anticoagulants; Z79.82 Long term (current) use of aspirin; Z79.4 Long term (current) use of insulin; Z79.891 Long term (current) use of opiate analgesic; Z79.51 Long term (current) use of inhaled steroids; Z79.899 Other long term (current) drug therapy; Z95.5 Presence of coronary angioplasty implant and graft; Z98.42 Cataract extraction status, left eye; Z98.41 Cataract extraction status, right eye; Z87.891 Personal history of nicotine dependence; Z87.01 Personal history of pneumonia (recurrent); Z88.2 Allergy status to sulfonamides
CPT/HCPCS: 36415; 71045; 71046; 80048; 80053; 82550; 82553; 83605; 83735; 83880; 84484; 85025; 85610; 85730; 87040; 87070; 87205; 87502; 93005; 93306; 94640; 94760; 96361; 96365; 96375; 99291

== ENCOUNTER 2017-08-07 21:42 | Inpatient (IN) | payer MEDICARE, BC ==
[2017-08-07] MEDS ORDERED: IPRATROPIUM 0.5 MG/2.5 ML NEBU INHALATION STA (21:55)
[2017-08-07] MEDS ORDERED: ALBUTEROL NEBULIZED 2.5 MG/3 ML INHALATION STA (21:55)
[2017-08-07 22:31] LABS: Basophils % (A) 0 %; Eosinophils % (A) 0 %; HCT 41.6 % (39.0-53.0); HGB 13.1 gm/dL (13.0-17.5); Hypochromasia Moderate; Lymphocytes # (A) 0.8 k/uL (1.0-4.8); Lymphocytes % (A) 8 %; MCHC 31.4 g/dL (31.0-37.0); MCV 85.9 fL (80.0-100.0); Mean Platelet Volume 7.5; Monocytes # (A) 0.7 k/uL (0-1.0); Monocytes % (A) 7 %; Neutrophils # (A) 8.3 k/uL (1.3-7.7); Neutrophils % (A) 84 %; Platelet Count 262 k/uL (150-450); RBC 4.85 m/uL (4.30-5.90); RDW 14.4 % (11.5-15.5); WBC 9.9 k/uL (3.8-10.6)
[2017-08-07] MEDS ORDERED: ACETAMINOPHEN TAB 500 MG TAB PO STA (22:37)
[2017-08-07 22:41] LABS: INR 3.6 (<1.2); Partial Thromboplastin Time 32.6 sec (22.0-30.0); Prothrombin Time 32.6 sec (9.0-12.0)
[2017-08-07 22:44] LABS: ALT 39 U/L (21-72); AST 34 U/L (17-59); Albumin 3.7 g/dL (3.5-5.0); Alkaline Phosphatase 89 U/L (38-126); Anion Gap 9 mmol/L; Blood Urea Nitrogen 19 mg/dL (9-20); Calcium 8.5 mg/dL (8.4-10.2); Carbon Dioxide 34 mmol/L (22-30); Glucose 279 mg/dL (74-99); Potassium 5.2 mmol/L (3.5-5.1); Sodium 122 mmol/L (137-145); Total Bilirubin 0.8 mg/dL (0.2-1.3); Total Protein 6.5 g/dL (6.3-8.2)
[2017-08-07 22:46] LABS: Chloride 79 mmol/L (98-107)
--- NOTE | 2017-08-07 23:06 | XR ---
EXAMINATION TYPE: XR chest 1V portable DATE OF EXAM: 08/07/2017 COMPARISON: 07/12/2017 HISTORY: Atrial fibrillation. Heart failure. TECHNIQUE: Single frontal view of the chest is obtained. FINDINGS: Heart is enlarged. There is pulmonary vascular congestion. There is blunting of costophren ic angles. There are chest leads. IMPRESSION: Congestive heart failure with increasing pleural fluid and congestion compared to last e xam.
[2017-08-07 23:14] LABS: Creatine Kinase MB 3.8 ng/mL (0.0-2.4); Troponin I 0.112 ng/mL (0.000-0.034)
[2017-08-07] MEDS ORDERED: MORPHINE SULFATE 2 MG/ML SYRINGE IVP STA (23:50)
[2017-08-07] MEDS ORDERED: NALOXONE 0.4 MG/ML 1 ML VIAL IV PRN (23:53)
[2017-08-07] MEDS ORDERED: NITROGLYCERIN SL TABS 0.4 MG TAB SUBLINGUAL PRN (23:55)
--- NOTE | 2017-08-08 00:07 | ED ---
General Adult HPI - General Chief complaint: Shortness of Breath Stated complaint: REGAN Time Seen by Provider: 08/07/17 21:49 Source: patient, EMS, RN notes reviewed, old records reviewed Mode of arrival: EMS Limitations: physical limitation - History of Present Illness Initial comments: 76-year-old male presenting with 4 days of worsening dyspnea. Patient is brought in by EMS in respiratory distress. He had a pulse ox in the low 80s on 4 L nasal cannula. Patient does have history of both asthma and congestive heart failure. He was in rehab for persistent dyspnea and lung issues. Does have a history of atrial fibrillation and is currently on Coumadin or denies any central chest pain. Denies fever or chills. Does complain of worsening lower extremity edema. He has orthopnea and PND. - Related Data Home Medications Medication Instructions Recorded Confirmed Aspirin 162 mg PO HS 11/26/13 08/07/17 Lovastatin [Mevacor] 20 mg PO HS 11/26/13 08/07/17 Montelukast Sodium [Singulair] 10 mg PO HS 11/26/13 08/07/17 hydrOXYzine HCL [Atarax] 10 mg PO TID 11/26/13 08/07/17 metFORMIN HCL 1,000 mg PO BID 11/26/13 08/07/17 Ipratropium-Albuterol Nebulize 3 ml INHALATION RT-TID PRN 10/10/16 08/07/17 [Duoneb 0.5 mg-3 mg/3 ml Soln] Multivitamins, Thera [Multivitamin 1 tab PO DAILY 10/10/16 08/07/17 (formulary)] Omeprazole [PriLOSEC] 20 mg PO BID 10/10/16 08/07/17 Sertraline [Zoloft] 100 mg PO DAILY 10/10/16 08/07/17 Vits A,C,E/Lutein/Minerals 1 tab PO DAILY 10/10/16 08/07/17 [Ocuvite with Lutein Tablet] Cyanocobalamin (Vitamin B-12) 1,000 mcg PO DAILY 11/11/16 08/07/17 [Vitamin B-12] Liraglutide [Victoza 2-Garry] 0.6 mg SQ DAILY 07/08/17 08/07/17 Nitroglycerin Sl Tabs [Nitrostat] 0.4 mg SUBLINGUAL Q5M PRN 07/08/17 08/07/17 Triamcinolone 0.1% Cream [Kenalog] 1 applicatio TOPICAL TID PRN 07/08/17 hydrALAZINE HCL [Apresoline] 25 mg PO BID 07/08/17 08/07/17 Acetaminophen Tab [Tylenol Tab] 650 mg PO Q6H PRN 08/07/17 08/07/17 Amiodarone [Cordarone] 200 mg PO DAILY 08/07/17 08/07/17 Furosemide [Lasix] 60 mg PO BID 08/07/17 08/07/17 INSULIN LISPRO (HumaLOG) [HumaLOG] See Protocol SQ ACHS 08/07/17 08/07/17 INSULIN LISPRO (humaLOG) [humaLOG] 5 units SQ PC-TID 08/07/17 08/07/17 Magnesium Hydroxide [Milk of 2,400 mg PO DAILY PRN 08/07/17 08/07/17 Magnesia] Mylanta Double Strength Susp 10 ml PO Q4HR PRN 08/07/17 08/07/17 Polyethylene Glycol 3350 [Miralax] 17 gm PO BID 08/07/17 08/07/17 Sacubitril/Valsartan [Entresto 24 1 tab PO BID@0800,199908/07/17 08/07/17 mg-26 mg Tablet] Warfarin [Coumadin] 2 mg PO DIRECTED 08/07/17 08/07/17 Warfarin [Coumadin] 2.5 mg PO DIRECTED 08/07/17 08/07/17 Previous Rx's Medication Instructions Recorded Diclofenac Sodium Gel [Voltaren 4 gm TOPICAL QID PRN tube 07/14/17 Gel] Insulin Glargine,Hum.rec.anlog 24 unit SQ DAILY #0 07/14/17 [Toujeo Solostar] Melatonin 3 mg PO HS PRN tablet 07/14/17 Methadone [Dolophine] 5 mg PO Q8H #9 tab 07/14/17 Metoprolol Tartrate [Lopressor] 100 mg PO BID tab 07/14/17 Allergies Allergy/AdvReac Type Severity Reaction Status Date / Time Sulfa (Sulfonamide Allergy Rash/Hives Verified 08/07/17 22:17 Antibiotics) Review of Systems ROS Statement: Those systems with pertinent positive or pertinent negative responses have been documented in the HPI. ROS Other: All systems not noted in ROS Statement are negative. Past Medical History Past Medical History: Atrial Fibrillation, Asthma, Heart Failure, CVA/TIA, Diabetes Mellitus, Eye Disorder, Fibromyalgia, Hyperlipidemia, Hypertension, Musculoskeletal Disorder, Pneumonia Additional Past Medical History / Comment(s): Hiatal Hernia. Glaucoma. Rt sided weakness from stroke (2008). HERNIATED DISC, BACK PAIN. NEUROPATHY FEET. CARDIOVERSION 10/14/16 UNSUCCESSFUL. History of Any Multi-Drug Resistant Organisms: None Reported Past Surgical History: Heart Catheterization With Stent, Orthopedic Surgery Additional Past Surgical History / Comment(s): nasal/sinus surgery, rt elbow, cataracts. CARDIOVERSION 10/14/16. Past Anesthesia/Blood Transfusion Reactions: No Reported Reaction Date of Last Stent Placement:: 2001 Past Psychological History: Depression Smoking Status: Former smoker Past Alcohol Use History: None Reported Past Drug Use History: None Reported - Past Family History Mother Family Medical History: No Reported History Father Family Medical History: Cancer General Exam Limitations: physical limitation General appearance: alert, in distress Head exam: Present: atraumatic, normocephalic Eye exam: Present: normal appearance, PERRL ENT exam: Present: normal exam Neck exam: Present: normal inspection. Absent: tenderness, meningismus Respiratory exam: Present: respiratory distress, wheezes, rales, accessory muscle use, decreased breath sounds Cardiovascular Exam: Present: regular rate, irregular rhythm GI/Abdominal exam: Present: soft. Absent: distended, tenderness, guarding Extremities exam: Present: pedal edema, other (DP pulses 2+) Neurological exam: Present: alert, oriented X3, CN II-XII intact. Absent: motor sensory deficit Psychiatric exam: Present: normal affect, normal mood Skin exam: Present: warm, intact, diaphoretic. Absent: cyanosis Course Vital Signs 08/07/17 08/07/17 08/07/17 21:51 22:18 22:22 Temperature 98.0 F Pulse Rate 97 79 Respiratory 25 H 26 H Rate Blood Pressure 161/96 O2 Sat by Pulse 94 L Oximetry 08/07/17 23:00 Temperature Pulse Rate 78 Respiratory 18 Rate Blood Pressure 131/78 O2 Sat by Pulse 98 Oximetry EKG Findings - EKG Comments: EKG Findings:: EKG: Atrial fibrillation with left bundle branch no definitive signs of ischemia, rate of 77, QRS duration 122, QTC 475 Medical Decision Making - Medical Decision Making 76-year-old male history of CHF presents in severe respiratory distress. Patient is placed on BiPAP. EKG shows atrial fibrillation rate controlled. Chest x-ray shows pulmonary edema with right-sided effusion. Hemoglobin is stable. INR is supratherapeutic at 3.6 Coumadin will be held. Patient does have hyponatremia at 122. He will be placed on a fluid restricted diet. Troponin is mildly elevated although this is improved from prior admission. BNP is significantly elevated at 6800. Patient will be started on IV Lasix. He will be continued on BiPAP. Admitted with cardiology on consult. - Lab Data Result diagrams: 08/07/17 22:02 08/07/17 22:02 Lab Results 08/07/17 08/07/17 08/07/17 Range/Units 22:02 22:02 22:02 WBC 9.9 (3.8-10.6) k/uL RBC 4.85 (4.30-5.90) m/uL Hgb 13.1 (13.0-17.5) gm/dL Hct 41.6 (39.0-53.0) % MCV 85.9 (80.0-100.0) fL MCH 27.0 (25.0-35.0) pg MCHC 31.4 (31.0-37.0) g/dL RDW 14.4 (11.5-15.5) % Plt Count 262 (150-450) k/uL Neutrophils % 84 % Lymphocytes % 8 % Monocytes % 7 % Eosinophils % 0 % Basophils % 0 % Neutrophils # 8.3 H (1.3-7.7) k/uL Lymphocytes # 0.8 L (1.0-4.8) k/uL Monocytes # 0.7 (0-1.0) k/uL Eosinophils # 0.0 (0-0.7) k/uL Basophils # 0.0 (0-0.2) k/uL Hypochromasia Moderate PT (9.0-12.0) sec INR (<1.2) APTT (22.0-30.0) sec Sodium 122 L (137-145) mmol/L Potassium 5.2 H (3.5-5.1) mmol/L Chloride 79 L* (98-107) mmol/L Carbon Dioxide 34 H (22-30) mmol/L Anion Gap 9 mmol/L BUN 19 (9-20) mg/dL Creatinine 0.84 (0.66-1.25) mg/dL Est GFR (CKD-EPI)AfAm >90 (>60 ml/min/1.73 sqM) Est GFR (CKD-EPI)NonAf 86 (>60 ml/min/1.73 sqM) Glucose 279 H (74-99) mg/dL Calcium 8.5 (8.4-10.2) mg/dL Magnesium 2.0 (1.6-2.3) mg/dL Total Bilirubin 0.8 (0.2-1.3) mg/dL AST 34 (17-59) U/L ALT 39 (21-72) U/L Alkaline Phosphatase 89 (38-126) U/L Total Creatine Kinase 70 (55-170) U/L CK-MB (CK-2) 3.8 H* (0.0-2.4) ng/mL CK-MB (CK-2) Rel Index 5.4 Troponin I 0.112 H* (0.000-0.034) ng/mL NT-Pro-B Natriuret Pep pg/mL Total Protein 6.5 (6.3-8.2) g/dL Albumin 3.7 (3.5-5.0) g/dL 08/07/17 08/07/17 Range/Units 22:02 22:02 WBC (3.8-10.6) k/uL RBC (4.30-5.90) m/uL Hgb (13.0-17.5) gm/dL Hct (39.0-53.0) % MCV (80.0-100.0) fL MCH (25.0-35.0) pg MCHC (31.0-37.0) g/dL RDW (11.5-15.5) % Plt Count (150-450) k/uL Neutrophils % % Lymphocytes % % Monocytes % % Eosinophils % % Basophils % % Neutrophils # (1.3-7.7) k/uL Lymphocytes # (1.0-4.8) k/uL Monocytes # (0-1.0) k/uL Eosinophils # (0-0.7) k/uL Basophils # (0-0.2) k/uL Hypochromasia PT 32.6 H (9.0-12.0) sec INR 3.6 H (<1.2) APTT 32.6 H (22.0-30.0) sec Sodium (137-145) mmol/L Potassium (3.5-5.1) mmol/L Chloride (98-107) mmol/L Carbon Dioxide (22-30) mmol/L Anion Gap mmol/L BUN (9-20) mg/dL Creatinine (0.66-1.25) mg/dL Est GFR (CKD-EPI)AfAm (>60 ml/min/1.73 sqM) Est GFR (CKD-EPI)NonAf (>60 ml/min/1.73 sqM) Glucose (74-99) mg/dL Calcium (8.4-10.2) mg/dL Magnesium (1.6-2.3) mg/dL Total Bilirubin (0.2-1.3) mg/dL AST (17-59) U/L ALT (21-72) U/L Alkaline Phosphatase (38-126) U/L Total Creatine Kinase (55-170) U/L CK-MB (CK-2) (0.0-2.4) ng/mL CK-MB (CK-2) Rel Index Troponin I (0.000-0.034) ng/mL NT-Pro-B Natriuret Pep 6820 pg/mL Total Protein (6.3-8.2) g/dL Albumin (3.5-5.0) g/dL Critical Care Time Critical Care Time: Yes Total Critical Care Time: 35 Disposition Clinical Impression: Pleural effusion, Congestive heart failure Disposition: ADMITTED IP TO THIS [facility] Condition: Serious Is patient prescribed a controlled substance at d/c from ED?: No Referrals: Yosvany Escalona MD [Primary Care Provider] - 1-2 days Decision to Admit Reason: Admit from EC Decision Date: 08/08/17 Decision Time: 00:06
[2017-08-08] MEDS: METHADONE 5 MG TAB PO SCH ×3 (03:46→16:32)
[2017-08-08 06:10] LABS: Glucose,Whole Blood 214 mg/dL (75-99)
[2017-08-08 06:25] LABS: Basophils % (A) 0 %; Eosinophils # (A) 0.1 k/uL (0-0.7); Eosinophils % (A) 2 %; HCT 35.5 % (39.0-53.0); HGB 11.2 gm/dL (13.0-17.5); Hypochromasia Moderate; Lymphocytes # (A) 1.2 k/uL (1.0-4.8); Lymphocytes % (A) 15 %; MCH 26.6 pg (25.0-35.0); MCHC 31.5 g/dL (31.0-37.0); MCV 84.4 fL (80.0-100.0); Mean Platelet Volume 7.5; Monocytes # (A) 0.6 k/uL (0-1.0); Monocytes % (A) 8 %; Neutrophils # (A) 5.7 k/uL (1.3-7.7); Neutrophils % (A) 73 %; Platelet Count 205 k/uL (150-450); RDW 14.7 % (11.5-15.5); WBC 7.8 k/uL (3.8-10.6)
[2017-08-08 06:42] LABS: ALT 36 U/L (21-72); AST 25 U/L (17-59); Albumin 2.7 g/dL (3.5-5.0); Alkaline Phosphatase 63 U/L (38-126); Anion Gap 5 mmol/L; Blood Urea Nitrogen 19 mg/dL (9-20); Calcium 7.5 mg/dL (8.4-10.2); Carbon Dioxide 35 mmol/L (22-30); Chloride 86 mmol/L (98-107); Glucose 201 mg/dL (74-99); Potassium 4.5 mmol/L (3.5-5.1); Sodium 126 mmol/L (137-145); Total Bilirubin 0.6 mg/dL (0.2-1.3); Total Protein 5.1 g/dL (6.3-8.2)
[2017-08-08] MEDS: AMIODARONE 200 MG TAB PO SCH (08:22)
[2017-08-08] MEDS: hydrALAZINE HCL 25 MG TAB PO SCH ×2 (08:23→19:44)
[2017-08-08] MEDS: PANTOPRAZOLE 40 MG TABLET PO SCH ×2 (08:23→17:47)
[2017-08-08 08:50] LABS: Glucose,Whole Blood 209 mg/dL (75-99)
[2017-08-08] MEDS: INSULIN ASPART 100 UNIT/ML 1 ML 10 ML VIAL SQ SCH ×5 (08:59→21:28)
[2017-08-08] MEDS ORDERED: FUROSEMIDE 10 MG/ML 4 ML VIAL IV SCH (09:00)
[2017-08-08] MEDS: INSULIN DETEMIR 100 UNIT/ML 10 ML VIAL SQ SCH (09:01)
[2017-08-08] MEDS: metFORMIN 500 MG TAB PO SCH ×2 (11:57→17:46)
[2017-08-08 12:09] LABS: Glucose,Whole Blood 256 mg/dL (75-99)
[2017-08-08] MEDS ORDERED: IPRATROPIUM 0.5 MG/2.5 ML NEBU INHALATION PRN (12:21)
[2017-08-08] MEDS ORDERED: ALBUTEROL INHALER 60 PUFF/8 GM INHALER INHALATION PRN ×2 (12:21)
[2017-08-08] MEDS ORDERED: IPRATROPIUM-ALBUTEROL 3 ML NEB INHALATION PRN (12:24)
[2017-08-08] MEDS: METOPROLOL TARTRATE 50 MG TAB PO SCH ×2 (12:55→19:44)
[2017-08-08] MEDS ORDERED: IPRATROPIUM-ALBUTEROL 3 ML NEB INHALATION SCH (13:00)
[2017-08-08] MEDS ORDERED: TRIAMCINOLONE 0.1% CREAM 80 GM TUBE TOPICAL PRN (16:23)
[2017-08-08] MEDS ORDERED: DICLOFENAC SODIUM GEL 100 GM TUBE TOPICAL PRN (16:23)
[2017-08-08] MEDS ORDERED: MELATONIN 3 MG TABLET PO PRN (16:23)
[2017-08-08] MEDS ORDERED: FUROSEMIDE 10 MG/ML 10 ML VIAL IV SCH (16:30)
[2017-08-08 16:46] LABS: Glucose,Whole Blood 183 mg/dL (75-99)
[2017-08-08] MEDS: IPRATROPIUM-ALBUTEROL 3 ML NEB INHALATION SCH ×2 (16:54→20:59)
[2017-08-08] MEDS: CYANOCOBALAMIN 500 MCG TAB PO SCH (17:45)
[2017-08-08] MEDS: methylPREDNISolone SOD SUCCI 40 MG/ML 1 ML VIAL IV SCH (17:46)
[2017-08-08] MEDS: SERTRALINE 100 MG TAB PO SCH (17:46)
--- NOTE | 2017-08-08 17:52 | HP ---
HISTORY AND PHYSICAL DATE OF ADMISSION: 08/07/2017 DATE OF SERVICE: 08/08/2017 PRESENTING COMPLAINT: Short of breath. HISTORY OF PRESENTING COMPLAINT: This is a pleasant gentleman with a rather extensive medical history. Patient was in the hospital about 3 weeks ago. At that time he had a [id number] myocardial infarction and congestive heart failure exacerbation. EF was found to be 30% to 35%. He also had atrial fibrillation. Patient's chronic stable medical conditions include diabetes, hyperlipidemia, hypertension, fibromyalgia, right-sided weakness from prior stroke and peripheral neuropathy. Patient presents with increasing shortness of breath for the last 4 days. No cough. No fever. Increasing edema. Patient was found to be in congestive heart failure in the ER, given a dose of IV Lasix. Patient also tells me that for some time he has been having trouble swallowing and now it is becoming more difficult with more solid food, especially in the last few days, though he was able to swallow his pills. The patient is somewhat anxious. REVIEW OF SYSTEMS: CONSTITUTIONAL: Tired. HEENT: Decreased hearing. RESPIRATORY: As above. CARDIOVASCULAR: No chest pain. GASTROINTESTINAL: As above. GENITOURINARY: None. MUSCULOSKELETAL: Some pain in joints. DERMATOLOGICAL: None. HEMATOLOGICAL: None. LYMPHATICS: None. PSYCHIATRY: Anxious. NEUROLOGICAL: Chronic right-sided weakness and peripheral neuropathy of the feet. PAST MEDICAL HISTORY: 1. Atrial fibrillation. 2. Asthma. 3. Stroke with right-sided weakness. 4. Diabetes. 5. Hypertension. 6. Hyperlipidemia. 7. Fibromyalgia. 8. Hiatal hernia. 9. Herniated disc in the back. 10.Right-sided weakness from old stroke. 11.Peripheral neuropathy. 12.Coronary artery disease with stent. 13.Depression. 14.CHF with EF of 30% to 35%. PAST SURGICAL HISTORY: 1. Cardiac cath with stent. 2. Orthopedic surgery. 3. Nasal sinus surgery. 4. Right elbow surgery. 5. Cardioversion in 2017. SOCIAL HISTORY: Patient stopped smoking about 30 years ago. . Uses a walker. 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 FAMILY HISTORY: Reviewed; noncontributory to presentation. HOME MEDICATIONS: 1. Kenalog 1 application topically t.i.d. p.r.n. 2. Nitrostat 0.4 sublingually q.5 p.r.n. 3. Mylanta 10 mL q.4 p.r.n. 4. Voltaren Gel 4 grams topically q.i.d. p.r.n. 5. Tylenol 650 mg q.6 p.r.n. 6. Milk of Magnesia 2400 mg p.o. daily p.r.n. 7. Melatonin 3 mg p.o. at bedtime p.r.n. 8. DuoNeb t.i.d. p.r.n. 9. Humalog per scale. 10.Methadone 5 mg p.o. q.8. 11.Atarax 10 mg p.o. t.i.d. 12.Humalog 5 units subcutaneously t.i.d. 13.Metformin 1000 mg b.i.d. 14.Prilosec 20 mg b.i.d. 15.Lopressor 100 mg b.i.d. 16.Hydralazine 25 p.o. b.i.d. 17.MiraLAX 17 grams p.o. b.i.d. 18.Lasix 60 mg b.i.d. 19.Crestor 24/26 one tablet p.o. b.i.d. 20.Victoza 0.6 mg subcutaneously daily. 21.Insulin Lantus units subcutaneously daily. 22.Ocuvite 1 tablet p.o. daily. 23.Zoloft 100 mg p.o. daily. 24.Multivitamin 1 tablet p.o. daily. 25.Singulair 10 mg at bedtime. 26.Mevacor 20 mg at bedtime. 27.Vitamin B12 1000 mcg p.o. daily. 28.Coumadin as directed. 29.Aspirin 162 mg p.o. at bedtime. 30.Amiodarone 200 mg p.o. daily. ALLERGIES: SULFA. PHYSICAL EXAMINATION: VITAL SIGNS ON PRESENTATION: Temperature 98, pulse 97, respiration 25, blood pressure 161/96, pulse ox 94% on 6 L. GENERAL APPEARANCE: Average build. BMI 31.8. Sitting on the edge the bed, rather anxious-appearing and short of breath. EYES: Pupils equal. Conjunctivae normal. HEENT: External appearance of nose and ears normal. Oral cavity normal. NECK: JVD unable to assess. Mass not palpable. RESPIRATORY: Effort increased. Some accessory muscles are working. LUNGS: Diminished breath sounds. Prolonged expiration. CARDIOVASCULAR: Heart sounds irregular. Edema present. ABDOMEN: Soft, nontender. Liver and spleen not palpable. LYMPHATIC: No lymph node palpable in neck or axillae. PSYCHIATRY: Alert and oriented x3. Mood and affect anxious-appearing. NEUROLOGICAL: Pupils equal. Cranial nerves grossly intact. Power on the right side is 4/5. INVESTIGATIONS: White count 9.9, hemoglobin 13.1, INR 3.6, sodium 122. Potassium 5.2, repeat 4.5. BUN 19, creatinine 0.84. Accu-Cheks are noted. Troponin 0.112. ProBNP 6820. Chest x-ray reviewed; shows pulmonary prominence and possible pleural effusion. ASSESSMENT: 1. Acute congestive heart failure exacerbation from ischemic cardiomyopathy, ejection fraction 30% to 35%. 2. Persistent atrial fibrillation. 3. Diabetes mellitus, type 2, chronically on insulin. 4. Hyperlipidemia. 5. Essential hypertension. 6. Chronic fibromyalgia. 7. Hiatal hernia. 8. 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 9. 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 10.Peripheral neuropathy secondary to diabetes. 11.Coronary artery disease with prior history of stent. 12.Depression not otherwise specified. 13.Gait dysfunction; uses a walker. 14.Acute chronic obstructive pulmonary disease exacerbation. 15.Troponin leak, probably from hemodynamic mismatch; does not appear to be unstable angina. 16.Hyponatremia. 17.Progressive dysphagia. PLAN: Patient is started on IV Lasix, nebulized bronchodilators. Care was discussed with the patient. Prognosis guarded. Will also add IV Solu-Medrol. Cardiology was consulted. Accu-Cheks will be followed closely. Patient will need an EGD when patient is stabilized or at least a barium swallow study. MMODL / IJN: [id number] /
[2017-08-08 18:29] LABS: Glucose,Whole Blood 227 mg/dL (75-99)
[2017-08-08] MEDS: SACUBITRIL/VALSARTAN 24 MG-26 MG TABLET PO SCH (19:43)
[2017-08-08] MEDS: ATORVASTATIN 10 MG TAB PO SCH (19:43)
[2017-08-08] MEDS: MONTELUKAST 10 MG TAB PO SCH (19:43)
[2017-08-08] MEDS: FUROSEMIDE 10 MG/ML 10 ML VIAL IV SCH (19:43)
[2017-08-08] MEDS: ASPIRIN 81 MG PO SCH (19:43)
[2017-08-08 21:10] LABS: Glucose,Whole Blood 105 mg/dL (75-99)
[2017-08-09] MEDS ORDERED: FUROSEMIDE 10 MG/ML 10 ML VIAL IV SCH
[2017-08-09] MEDS: IPRATROPIUM-ALBUTEROL 3 ML NEB INHALATION SCH ×5 (01:12→20:23)
[2017-08-09] MEDS: METHADONE 5 MG TAB PO SCH ×4 (01:32→23:57)
[2017-08-09] MEDS: methylPREDNISolone SOD SUCCI 40 MG/ML 1 ML VIAL IV SCH ×4 (01:32→23:57)
[2017-08-09] MEDS: MORPHINE SULFATE 2 MG/ML SYRINGE IV PRN ×2 (02:48→17:34)
[2017-08-09] MEDS: metFORMIN 500 MG TAB PO SCH ×2 (06:10→17:36)
[2017-08-09] MEDS: FUROSEMIDE 10 MG/ML 10 ML VIAL IV SCH (06:10)
[2017-08-09] MEDS: PANTOPRAZOLE 40 MG TABLET PO SCH (06:10)
[2017-08-09] MEDS: INSULIN ASPART 100 UNIT/ML 1 ML 10 ML VIAL SQ SCH ×7 (06:15→21:54)
[2017-08-09 06:17] LABS: Glucose,Whole Blood 142 mg/dL (75-99)
[2017-08-09 06:44] LABS: Anion Gap 10 mmol/L; Blood Urea Nitrogen 21 mg/dL (9-20); Calcium 8.2 mg/dL (8.4-10.2); Carbon Dioxide 35 mmol/L (22-30); Chloride 83 mmol/L (98-107); Glucose 147 mg/dL (74-99); Potassium 4.4 mmol/L (3.5-5.1); Sodium 128 mmol/L (137-145)
[2017-08-09] MEDS: SACUBITRIL/VALSARTAN 24 MG-26 MG TABLET PO SCH ×2 (08:22→19:53)
[2017-08-09] MEDS: CYANOCOBALAMIN 500 MCG TAB PO SCH (08:22)
[2017-08-09] MEDS: AMIODARONE 200 MG TAB PO SCH (08:24)
[2017-08-09] MEDS: METOPROLOL TARTRATE 50 MG TAB PO SCH ×2 (08:24→19:52)
[2017-08-09] MEDS: SERTRALINE 100 MG TAB PO SCH (08:24)
[2017-08-09] MEDS: hydrALAZINE HCL 25 MG TAB PO SCH ×2 (08:25→19:53)
[2017-08-09] MEDS: INSULIN DETEMIR 100 UNIT/ML 10 ML VIAL SQ SCH (08:26)
--- NOTE | 2017-08-09 08:58 | P.CRDCN ---
History of Present Illness Consult date: 08/09/17 Requesting physician: Ephraim Underwood Consult reason: congestive heart failure Chief complaint: Difficulty swallowing, mild shortness of breath History of present illness: This is a 76-year-old gentleman who follows with Dr. BEN Gardner in the office. He has known history of chronic persistent atrial fibrillation, prior CVA, diabetes, coronary artery disease with prior LAD stent in 2001, prior attempted cardioversion, unsuccessful, hypertension, hyperlipidemia, was recently in the hospital in June of this year with a non-ST elevation myocardial infarction. An echocardiogram with Doppler study was performed on that admission which revealed an ejection fraction of 35-40%. Patient was discharged to [facility], he is admitted to the hospital with difficulty in swallowing. Patient states that for the past 3 days whenever he swallows anything a large or small he feels like it gets stuck at the base of his throat , and makes him quite short of breath, and causes him to cough. For this reason he came to the emergency room for further evaluation. EKG on arrival here showed atrial fibrillation with a controlled ventricular response. Chest x -ray showed congestive heart failure with increasing pleural fluid as compared with prior here blood pressure on arrival 160/90, heart rate in the 90s, temperature 90.8, 94% on 6 L. White blood cell count is normal, hemoglobin 11.2 , platelet count 205. INR 3.6, sodium on admission 122, 128 this morning. BUN 21, creatinine 0.7. BNP 6820, troponin 0.112. At the time of my examination this morning, patient had just eaten his breakfast and was again complaining of a fullness feeling and blocked tight feeling at the base of his throat. 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 Past Anesthesia/Blood Transfusion Reactions: No Reported Reaction Date of Last Stent Placement:: 2001 Smoking Status: Former smoker - Past Family History Mother Family Medical History: No Reported History Father Family Medical History: Cancer Additional Family Medical History / Comment(s): Father had prostrate cancer. Medications and Allergies Home Medications Medication Instructions Recorded Confirmed Type Aspirin 162 mg PO HS 11/26/13 08/07/17 History Lovastatin [Mevacor] 20 mg PO HS 11/26/13 08/07/17 History Montelukast Sodium [Singulair] 10 mg PO HS 11/26/13 08/07/17 History hydrOXYzine HCL [Atarax] 10 mg PO TID 11/26/13 08/07/17 History metFORMIN HCL 1,000 mg PO BID 11/26/13 08/07/17 History Ipratropium-Albuterol Nebulize 3 ml INHALATION RT-TID PRN 10/10/16 08/07/17 History [Duoneb 0.5 mg-3 mg/3 ml Soln] Multivitamins, Thera [Multivitamin 1 tab PO DAILY 10/10/16 08/07/17 History (formulary)] Omeprazole [PriLOSEC] 20 mg PO BID 10/10/16 08/07/17 History Sertraline [Zoloft] 100 mg PO DAILY 10/10/16 08/07/17 History Vits A,C,E/Lutein/Minerals 1 tab PO DAILY 10/10/16 08/07/17 History [Ocuvite with Lutein Tablet] Cyanocobalamin (Vitamin B-12) 1,000 mcg PO DAILY 11/11/16 08/07/17 History [Vitamin B-12] Liraglutide [Victoza 2-Garry] 0.6 mg SQ DAILY 07/08/17 08/07/17 History Nitroglycerin Sl Tabs [Nitrostat] 0.4 mg SUBLINGUAL Q5M PRN 07/08/17 08/07/17 History Triamcinolone 0.1% Cream [Kenalog] 1 applicatio TOPICAL TID PRN 07/08/17 History hydrALAZINE HCL [Apresoline] 25 mg PO BID 07/08/17 08/07/17 History Diclofenac Sodium Gel [Voltaren 4 gm TOPICAL QID PRN tube 07/14/17 08/07/17 Rx Gel] Insulin Glargine,Hum.rec.anlog 24 unit SQ DAILY #0 07/14/17 08/07/17 Rx [Toujeo Solostar] Melatonin 3 mg PO HS PRN tablet 07/14/17 08/07/17 Rx Methadone [Dolophine] 5 mg PO Q8H #9 tab 07/14/17 08/07/17 Rx Metoprolol Tartrate [Lopressor] 100 mg PO BID tab 07/14/17 08/07/17 Rx Acetaminophen Tab [Tylenol Tab] 650 mg PO Q6H PRN 08/07/17 08/07/17 History Amiodarone [Cordarone] 200 mg PO DAILY 08/07/17 08/07/17 History Furosemide [Lasix] 60 mg PO BID 08/07/17 08/07/17 History INSULIN LISPRO (HumaLOG) [HumaLOG] See Protocol SQ ACHS 08/07/17 08/07/17 History INSULIN LISPRO (humaLOG) [humaLOG] 5 units SQ PC-TID 08/07/17 08/07/17 History Magnesium Hydroxide [Milk of 2,400 mg PO DAILY PRN 08/07/17 08/07/17 History Magnesia] Mylanta Double Strength Susp 10 ml PO Q4HR PRN 08/07/17 08/07/17 History Polyethylene Glycol 3350 [Miralax] 17 gm PO BID 08/07/17 08/07/17 History Sacubitril/Valsartan [Entresto 24 1 tab PO BID@0800,199908/07/17 08/07/17 History mg-26 mg Tablet] Warfarin [Coumadin] 2 mg PO DIRECTED 08/07/17 08/07/17 History Warfarin [Coumadin] 2.5 mg PO DIRECTED 08/07/17 08/07/17 History Allergies Allergy/AdvReac Type Severity Reaction Status Date / Time Sulfa (Sulfonamide Allergy Rash/Hives Verified 08/07/17 22:17 Antibiotics) Physical Exam Vitals: Vital Signs Temp Pulse Pulse Resp BP BP Pulse Ox 08/09/17 07:31 78 08/09/17 07:21 76 08/09/17 04:00 97.5 F L 66 16 101/54 96 08/09/17 00:00 97.5 F L 62 16 118/64 97 08/08/17 20:00 97.8 F 83 18 132/82 96 08/08/17 16:00 97.3 F L 79 16 144/78 96 08/08/17 15:56 78 18 164/82 96 08/08/17 12:00 97.0 F L 81 18 166/82 96 08/08/17 10:09 83 18 155/77 96 Intake and Output 08/08/17 08/09/17 08/09/17 22:59 06:59 14:59 Intake Total 240 600 Output Total 1900 550 700 Balance -1660 -550 -100 Intake: Oral 240 600 Output: Urine 1900 550 700 Other: Voiding Method Urinal Urinal # Voids 2 0 1 # Bowel Movements 0 Weight 112.491 kg 114.8 kg PHYSICAL EXAMINATION: GENERAL: 76-year-old gentleman in no apparent distress at the time of my examination HEENT: Head is atraumatic, normocephalic. Pupils equal, round. Sclera anicteric. Conjunctiva are clear. Mucous membranes of the mouth are moist. Neck is supple. There is no elevated jugular venous pressure.] bruit is heard. HEART EXAMINATION: Heart S1 and S2 irregularly irregular a systolic murmur is heard. CHEST EXAMINATION: Lungs reveal scattered coarse wheezes throughout. ABDOMEN: Soft, nontender. Bowel sounds are heard. No organomegaly noted. EXTREMITIES: 2+ peripheral pulses with trace evidence of peripheral edema and no calf tenderness noted. NEUROLOGIC patient is awake, alert and oriented -3. . Results 08/08/17 06:17 08/09/17 06:15 Comprehensive Metabolic Panel 08/09/17 Range/Units 06:15 Sodium 128 L (137-145) mmol/L Potassium 4.4 (3.5-5.1) mmol/L Chloride 83 L (98-107) mmol/L Carbon Dioxide 35 H (22-30) mmol/L BUN 21 H (9-20) mg/dL Creatinine 0.74 (0.66-1.25) mg/dL Glucose 147 H (74-99) mg/dL Calcium 8.2 L (8.4-10.2) mg/dL Current Medications Generic Name Dose Route Start Last Admin Trade Name Freq PRN Reason Stop Dose Admin Acetaminophen 650 mg 08/07/17 23:53 Tylenol Tab PO Q6HR PRN Mild Pain or Fever > 100.5 Albuterol/Ipratropium 3 ml 08/08/17 12:24 Duoneb 0.5 Mg-3 Mg/3 Ml Soln INHALATION RT-Q1H PRN Shortness Of Breath Or Wheezing Albuterol/Ipratropium 3 ml 08/09/17 08:00 08/09/17 07:21 Duoneb 0.5 Mg-3 Mg/3 Ml Soln INHALATION 3 ml RT-QID MARCELLE Administration Amiodarone HCl 200 mg 08/08/17 09:00 08/09/17 08:24 Cordarone PO 200 mg DAILY MARCELLE Administration Aspirin 162 mg 08/08/17 21:00 08/08/17 19:43 Aspirin PO 162 mg HS MARCELLE Administration Atorvastatin Calcium 10 mg 08/08/17 21:00 08/08/17 19:43 Lipitor PO 10 mg HS MARCELLE Administration Cyanocobalamin 1,000 mcg 08/08/17 16:30 08/09/17 08:22 Vitamin B-12 PO 1,000 mcg DAILY MARCELLE Administration Diclofenac Sodium 4 gm 08/08/17 16:23 Voltaren Gel TOPICAL QID PRN Mild Pain Furosemide 60 mg 08/08/17 21:00 08/09/17 06:10 Lasix IV 60 mg Q8H MARCELLE Administration Hydralazine HCl 25 mg 08/08/17 09:00 08/09/17 08:25 Apresoline PO 25 mg BID MARCELLE Administration Insulin Aspart 5 unit 08/08/17 08:30 08/09/17 08:26 Novolog SQ 5 unit PC-TID MARCELLE Administration Insulin Aspart 0 unit 08/08/17 21:00 08/09/17 06:15 [facility]olog SQ [facility] Protocol Insulin Detemir 24 unit 08/08/17 09:00 08/09/17 08:26 Levemir SQ 24 unit DAILY MARCELLE Administration Melatonin 3 mg 08/08/17 16:23 08/08/17 19:43 Melatonin PO 3 mg HS PRN Administration Insomnia Metformin HCl 1,000 mg 08/08/17 07:30 08/09/17 06:10 Glucophage PO 1,000 mg AC-BID MARCELLE Administration Methadone HCl 5 mg 08/08/17 00:00 08/09/17 08:25 Dolophine PO 5 mg Q8H MARCELLE Administration Methylprednisolone Sodium Succinate 40 mg 08/08/17 16:45 08/09/17 08:25 Solu-Medrol IV 40 mg Q8HR MARCELLE Administration Metoprolol Tartrate 100 mg 08/08/17 09:00 08/09/17 08:24 Lopressor PO 100 mg BID MARCELLE Administration Montelukast Sodium 10 mg 08/08/17 21:00 08/08/17 19:43 Singulair PO 10 mg HS MARCELLE Administration Morphine Sulfate 4 mg 08/07/17 23:53 08/09/17 02:48 Morphine Sulfate (Inj) IV 4 mg Q4HR PRN Administration Severe Pain Multivitamins 1 each 08/09/17 12:00 Theragran PO DAILY@1200 [facility] Naloxone HCl 0.2 mg 08/07/17 23:53 Narcan IV Q2M PRN Opioid Reversal Nitroglycerin 0.4 mg 08/07/17 23:55 Nitrostat SUBLINGUAL Q5M PRN Chest Pain Liraglutide [Victoza 0.6 mg 08/08/17 16:30 08/09/17 07:55 2-Garry] 0.6 Mg SQ Not Given DAILY [facility] Pantoprazole Sodium 40 mg 08/08/17 07:30 08/09/17 06:10 Protonix PO 40 mg AC-BID [facility] Administration Sacubitril/Valsartan 1 each 08/08/17 20:00 08/09/17 08:22 Entresto 24 Mg-26 Mg Tablet PO 1 each BID@0800,2000 [facility] Administration Sertraline HCl 100 mg 08/08/17 16:30 08/09/17 08:24 Zoloft PO 100 mg DAILY [facility] Administration Triamcinolone Acetonide 1 applic 08/08/17 16:23 Kenalog TOPICAL TID PRN Itching Intake and Output 08/08/17 08/09/17 08/09/17 22:59 06:59 14:59 Intake Total 240 600 Output Total 1900 550 700 Balance -1660 -550 -100 Intake: Oral 240 600 Output: Urine 1900 550 700 Other: Voiding Method Urinal Urinal # Voids 2 0 1 # Bowel Movements 0 Weight 112.491 kg 114.8 kg 08/08/17 06:17 08/09/17 06:15 EKG Interpretations (text) EKG shows atrial fibrillation with a controlled ventricular response Assessment and Plan Plan: Assessment and plan #1 symptoms of difficulty in swallowing, patient has been seen and evaluated by GI service and will be scheduled to undergo video fluoroscopy later today. #2 systolic congestive heart failure acute on chronic #3 hyponatremia #4 ischemic cardiomyopathy with documented ejection fraction of 35-40%. #5 hypertension #6 diabetes #7 hyperlipidemia #8 history of CVA with right-sided weakness #9 chronic persistent atrial fibrillation #10 abnormal troponin Plan Patient has been seen and evaluated by GI service, we will obtain subsequent troponins. Continue IV Lasix, continue to monitor daily lytes BUN and creatinine, intake and output further recommendations to follow. DNP note has been reviewed, I agree with a documented findings and plan of care. Patient was seen and examined.
--- NOTE | 2017-08-09 09:00 | P.CNPUL ---
History of Present Illness Consult date: 08/09/17 Reason for consult: dyspnea, cough, COPD Chief complaint: Shortness of breath, wheezing and difficulty in swallowing History of present illness: 77-year-old male who was seen evaluated examined on 6 floor this patient has been admitted to hospital with progressive increasing shortness of breath intermittent dry nonproductive cough also has problems associated with swallowing, patient has a recent history of acute non-ST segment elevated NM with acute on chronic systolic heart failure baseline ejection fraction was only 30% patient also has history of chronic atrial fibrillation right hemiparesis related to prior stroke patient has other significant medical problems including complicated type 2 diabetes mellitus dyslipidemia hypertension hypertensive cardiovascular disease and chronic neuropathy, patient on arrival to emergency department was given furosemide and responded well with improvement in swelling but however continued to have significant wheezing, patient has been on IV steroids and breathing treatments, patient is being evaluated with videofluoroscopy scheduled later on today for his swallowing dysfunction, lately patient is a hint having problems more with solid food, on specific questioning he denies any seizure-like to a loss of consciousness, and denies any chest pain or radiation of pain does have ongoing shortness of breath which is overall stable denies any cough or sputum production most of the time, denies any bowel or bladder related problem Review of Systems All systems: negative Past Medical History Past Medical History: Atrial Fibrillation, Asthma, Coronary Artery Disease (CAD) , Heart Failure, COPD, CVA/TIA, Diabetes Mellitus, Eye Disorder, Fibromyalgia, GERD/Reflux, Hyperlipidemia, Hypertension, Musculoskeletal Disorder, Osteoarthritis (OA), Pneumonia, Prostate Disorder Additional Past Medical History / Comment(s): IDDM type II, neuropathy bilateral feet, ischemic cardiomyopathy, Afib with RVR, 2008 CVA with R sided weaknes upper and lower extremities, gait dysfunction, bilateral eyes glaucoma, hiatal hernia and gets food "stuck" at times, chronic low back pain, herniated discs, TURP for BPH, insomnia History of Any Multi-Drug Resistant Organisms: None Reported Past Surgical History: Back Surgery, Heart Catheterization With Stent, Orthopedic Surgery, Prostate Surgery Additional Past Surgical History / Comment(s): PCI with stent to LAD in 2001, unsuccessful cardioversion in 2017, endoscopic sinus surgery/polypectomy, colonoscopy, TURP, bilateral hydrocelectomy, low back surgery. Past Anesthesia/Blood Transfusion Reactions: No Reported Reaction Date of Last Stent Placement:: 2001 Smoking Status: Former smoker - Past Family History Mother Family Medical History: No Reported History Father Family Medical History: Cancer Additional Family Medical History / Comment(s): Father had prostrate cancer. Medications and Allergies Home Medications Medication Instructions Recorded Confirmed Type Aspirin 162 mg PO HS 11/26/13 08/07/17 History Lovastatin [Mevacor] 20 mg PO HS 11/26/13 08/07/17 History Montelukast Sodium [Singulair] 10 mg PO HS 11/26/13 08/07/17 History hydrOXYzine HCL [Atarax] 10 mg PO TID 11/26/13 08/07/17 History metFORMIN HCL 1,000 mg PO BID 11/26/13 08/07/17 History Ipratropium-Albuterol Nebulize 3 ml INHALATION RT-TID PRN 10/10/16 08/07/17 History [Duoneb 0.5 mg-3 mg/3 ml Soln] Multivitamins, Thera [Multivitamin 1 tab PO DAILY 10/10/16 08/07/17 History (formulary)] Omeprazole [PriLOSEC] 20 mg PO BID 10/10/16 08/07/17 History Sertraline [Zoloft] 100 mg PO DAILY 10/10/16 08/07/17 History Vits A,C,E/Lutein/Minerals 1 tab PO DAILY 10/10/16 08/07/17 History [Ocuvite with Lutein Tablet] Cyanocobalamin (Vitamin B-12) 1,000 mcg PO DAILY 11/11/16 08/07/17 History [Vitamin B-12] Liraglutide [Victoza 2-Garry] 0.6 mg SQ DAILY 07/08/17 08/07/17 History Nitroglycerin Sl Tabs [Nitrostat] 0.4 mg SUBLINGUAL Q5M PRN 07/08/17 08/07/17 History Triamcinolone 0.1% Cream [Kenalog] 1 applicatio TOPICAL TID PRN 07/08/17 History hydrALAZINE HCL [Apresoline] 25 mg PO BID 07/08/17 08/07/17 History Diclofenac Sodium Gel [Voltaren 4 gm TOPICAL QID PRN tube 07/14/17 08/07/17 Rx Gel] Insulin Glargine,Hum.rec.anlog 24 unit SQ DAILY #0 07/14/17 08/07/17 Rx [Toujeo Solostar] Melatonin 3 mg PO HS PRN tablet 07/14/17 08/07/17 Rx Methadone [Dolophine] 5 mg PO Q8H #9 tab 07/14/17 08/07/17 Rx Metoprolol Tartrate [Lopressor] 100 mg PO BID tab 07/14/17 08/07/17 Rx Acetaminophen Tab [Tylenol Tab] 650 mg PO Q6H PRN 08/07/17 08/07/17 History Amiodarone [Cordarone] 200 mg PO DAILY 08/07/17 08/07/17 History Furosemide [Lasix] 60 mg PO BID 08/07/17 08/07/17 History INSULIN LISPRO (HumaLOG) [HumaLOG] See Protocol SQ ACHS 08/07/17 08/07/17 History INSULIN LISPRO (humaLOG) [humaLOG] 5 units SQ PC-TID 08/07/17 08/07/17 History Magnesium Hydroxide [Milk of 2,400 mg PO DAILY PRN 08/07/17 08/07/17 History Magnesia] Mylanta Double Strength Susp 10 ml PO Q4HR PRN 08/07/17 08/07/17 History Polyethylene Glycol 3350 [Miralax] 17 gm PO BID 08/07/17 08/07/17 History Sacubitril/Valsartan [Entresto 24 1 tab PO BID@0800,2000 08/07/17 08/07/17 History mg-26 mg Tablet] Warfarin [Coumadin] 2 mg PO DIRECTED 08/07/17 08/07/17 History Warfarin [Coumadin] 2.5 mg PO DIRECTED 08/07/17 08/07/17 History Allergies Allergy/AdvReac Type Severity Reaction Status Date / Time Sulfa (Sulfonamide Allergy Rash/Hives Verified 08/07/17 22:17 Antibiotics) Physical Exam Vitals: Vital Signs Temp Pulse Pulse Resp BP BP Pulse Ox 08/09/17 07:31 78 08/09/17 07:21 76 08/09/17 04:00 97.5 F L 66 16 101/54 96 08/09/17 00:00 97.5 F L 62 16 118/64 97 08/08/17 20:00 97.8 F 83 18 132/82 96 08/08/17 16:00 97.3 F L 79 16 144/78 96 08/08/17 15:56 78 18 164/82 96 08/08/17 12:00 97.0 F L 81 18 166/82 96 08/08/17 10:09 83 18 155/77 96 Intake and Output 08/08/17 08/09/17 08/09/17 22:59 06:59 14:59 Intake Total 240 600 Output Total 1900 550 700 Balance -1660 -550 -100 Intake: Oral 240 600 Output: Urine 1900 550 700 Other: Voiding Method Urinal Urinal # Voids 2 0 1 # Bowel Movements 0 Weight 112.491 kg 114.8 kg - Constitutional General appearance: cooperative, disheveled, mild distress - EENT Eyes: PERRLA, normal appearance ENT: hard of hearing, normal oropharynx Ears: bilateral: normal - Neck Neck: normal ROM Carotids: bilateral: upstroke normal, bruit absent - Respiratory Respiratory: bilateral: diminished, rales (Less than one third of the lung), rhonchi (Both during inspiratory expiratory phase), wheezing (Both during inspiratory and expiratory phase), prolonged expiration, negative: CTA, dullness - Cardiovascular Rhythm: irregularly irregular Heart sounds: normal: S1, S2 - Gastrointestinal General gastrointestinal: decreased bowel sounds, soft - Integumentary Integumentary: normal turgor - Neurologic Neurologic: CNII-XII intact, focal deficits - Musculoskeletal Musculoskeletal: gait normal, generalized weakness, strength equal bilaterally, right sided weakness - Psychiatric Psychiatric: A&O x's 3, appropriate affect, intact judgment & insight Results - Laboratory Findings CBC and BMP: 08/08/17 06:17 08/09/17 06:15 PT/INR, D-dimer PT 32.6 sec (9.0-12.0) H 08/07/17 22:02 INR 3.6 (<1.2) H 08/07/17 22:02 Abnormal lab findings: Abnormal Labs 08/07/17 08/07/17 08/07/17 22:02 22:02 22:02 RBC Hgb Hct Neutrophils # 8.3 H Lymphocytes # 0.8 L PT INR APTT Sodium 122 L Potassium 5.2 H Chloride 79 L* Carbon Dioxide 34 H BUN Glucose 279 H POC Glucose (mg/dL) Calcium CK-MB (CK-2) 3.8 H* Troponin I 0.112 H* Total Protein Albumin 08/07/17 08/08/17 08/08/17 22:02 06:06 06:17 RBC 4.20 L Hgb 11.2 L Hct 35.5 L Neutrophils # Lymphocytes # PT 32.6 H INR 3.6 H APTT 32.6 H Sodium Potassium Chloride Carbon Dioxide BUN Glucose POC Glucose (mg/dL) 214 H Calcium CK-MB (CK-2) Troponin I Total Protein Albumin 08/08/17 08/08/17 08/08/17 06:17 08:33 12:04 RBC Hgb Hct Neutrophils # Lymphocytes # PT INR APTT Sodium 126 L Potassium Chloride 86 L Carbon Dioxide 35 H BUN Glucose 201 H POC Glucose (mg/dL) 209 H 256 H Calcium 7.5 L CK-MB (CK-2) Troponin I Total Protein 5.1 L Albumin 2.7 L 08/08/17 08/08/17 08/08/17 16:44 18:27 21:06 RBC Hgb Hct Neutrophils # Lymphocytes # PT INR APTT Sodium Potassium Chloride Carbon Dioxide BUN Glucose POC Glucose (mg/dL) 183 H 227 H 105 H Calcium CK-MB (CK-2) Troponin I Total Protein Albumin 08/09/17 08/09/17 06:15 06:15 RBC Hgb Hct Neutrophils # Lymphocytes # PT INR APTT Sodium 128 L Potassium Chloride 83 L Carbon Dioxide 35 H BUN 21 H Glucose 147 H POC Glucose (mg/dL) 142 H Calcium 8.2 L CK-MB (CK-2) Troponin I Total Protein Albumin - Diagnostic Findings Chest x-ray: report reviewed, image reviewed (Cardiomegaly interstitial edema and bilateral small pleural effusion consistent with acute congestive heart failure exacerbation likely related to acute systolic heart failure on baseline chronic systolic heart failure) Assessment and Plan Assessment: Acute hypoxic respiratory failure related to acute COPD exacerbation and acute exacerbation of congestive heart failure related to acute on chronic systolic heart failure Acute COPD exacerbation Acute exacerbation of congestive heart failure related to acute on chronic systolic heart failure with baseline ejection fraction of 30% Cardiomyopathy with baseline ejection fraction of 30% likely ischemic chronic in nature Dysphagia of unclear etiology Severe hyponatremia Generalized weakness and medical debility History of CVA with right hemiparesis Plan: Agree with swallowing evaluation Gentle diuresis Deep breathing exercises incentive spirometry Continue anticoagulation as per plan IV steroids and breathing treatments Maintain patient on peptic ulcer disease prophylaxis Aspiration precautions Further recommendations pending plan of care as per clinical response of the patient Time with Patient: Greater than 30
--- NOTE | 2017-08-09 10:16 | P.CONS ---
History of Present Illness - Reason for Consult Consult date: 08/09/17 Dysphagia Requesting physician: Ephraim Underwood - History of Present Illness 76-year-old male with a history of chronic persistent A. fib maintained on warfarin, diabetes, CAD PCI stent, hypertension, hyperlipidemia, recent non-ST elevated [place] in June 2017, CVA, ischemic cardiomyopathy ejection fraction 35-40% admitted with shortness of breath CHF and difficulty in swallowing. Patient states this has been ongoing for more than 6 months. Patient reports his swallowing is more troublesome with solids than liquids with a sensation of food being stuck in the posterior pharynx upper esophageal region. Sometimes he coughs within liquids. He has no history of EGD. Denies hematemesis hematochezia melena. Sometimes thicker foods cause him to regurgitate or vomit. Denies weight loss. White count 9.9. Hemoglobin 13.1. Platelet 262. INR 3.6. Troponin 0.112. Sodium 122. Potassium 5.2. BUN 19. Creatinine 0.8. LFTs within normal limits. Glucose 279. Review of Systems Constitutional: Denies fever, chills, sweats, weight gain, or loss. HEENT: Negative for migraines, blurred vision or loss, earaches, drainage, tinnitus, oral mucosal lesions, dysphagia, or odynophagia. Cardiac: Negative for chest pain, arrhythmias, or palpitation. Respiratory: Negative for shortness of breath, hemoptysis, cough, or sputum production. Gastrointestinal: See HPI for pertinent findings. Genitourinary: Negative for hematuria, urgency, frequency, polyuria, dysuria, or penile discharge. Musculoskeletal: Negative for muscle aches, swelling, arthritis, and arthralgias. Neurologic: Negative for stroke or TIA. Endocrine: Negative for thyroid problems. Skin: Negative for rash or itching. Psychiatric: Negative history for depression and anxiety Past Medical History Past Medical History: Atrial Fibrillation, Asthma, Coronary Artery Disease (CAD) , Heart Failure, COPD, CVA/TIA, Diabetes Mellitus, Eye Disorder, Fibromyalgia, GERD/Reflux, Hyperlipidemia, Hypertension, Musculoskeletal Disorder, Osteoarthritis (OA), Pneumonia, Prostate Disorder Additional Past Medical History / Comment(s): IDDM type II, neuropathy bilateral feet, ischemic cardiomyopathy, Afib with RVR, 2009 CVA with R sided weaknes upper and lower extremities, gait dysfunction, bilateral eyes glaucoma, hiatal hernia and gets food "stuck" at times, chronic low back pain, herniated discs, TURP for BPH, insomnia History of Any Multi-Drug Resistant Organisms: None Reported Past Surgical History: Back Surgery, Heart Catheterization With Stent, Orthopedic Surgery, Prostate Surgery Additional Past Surgical History / Comment(s): PCI with stent to LAD in 2001, unsuccessful cardioversion in 2016, endoscopic sinus surgery/polypectomy, colonoscopy, TURP, bilateral hydrocelectomy, low back surgery. Past Anesthesia/Blood Transfusion Reactions: No Reported Reaction Date of Last Stent Placement:: 2001 Smoking Status: Former smoker - Past Family History Mother Family Medical History: No Reported History Father Family Medical History: Cancer Additional Family Medical History / Comment(s): Father had prostrate cancer. Medications and Allergies Home Medications Medication Instructions Recorded Confirmed Type Aspirin 162 mg PO HS 11/26/13 08/07/17 History Lovastatin [Mevacor] 20 mg PO HS 11/26/13 08/07/17 History Montelukast Sodium [Singulair] 10 mg PO HS 11/26/13 08/07/17 History hydrOXYzine HCL [Atarax] 10 mg PO TID 11/26/13 08/07/17 History metFORMIN HCL 1,000 mg PO BID 11/26/13 08/07/17 History Ipratropium-Albuterol Nebulize 3 ml INHALATION RT-TID PRN 10/10/16 08/07/17 History [Duoneb 0.5 mg-3 mg/3 ml Soln] Multivitamins, Thera [Multivitamin 1 tab PO DAILY 10/10/16 08/07/17 History (formulary)] Omeprazole [PriLOSEC] 20 mg PO BID 10/10/16 08/07/17 History Sertraline [Zoloft] 100 mg PO DAILY 10/10/16 08/07/17 History Vits A,C,E/Lutein/Minerals 1 tab PO DAILY 10/10/16 08/07/17 History [Ocuvite with Lutein Tablet] Cyanocobalamin (Vitamin B-12) 1,000 mcg PO DAILY 11/11/16 08/07/17 History [Vitamin B-12] Liraglutide [Victoza 2-Garry] 0.6 mg SQ DAILY 07/08/17 08/07/17 History Nitroglycerin Sl Tabs [Nitrostat] 0.4 mg SUBLINGUAL Q5M PRN 07/08/17 08/07/17 History Triamcinolone 0.1% Cream [Kenalog] 1 applicatio TOPICAL TID PRN 07/08/17 History hydrALAZINE HCL [Apresoline] 25 mg PO BID 07/08/17 08/07/17 History Diclofenac Sodium Gel [Voltaren 4 gm TOPICAL QID PRN tube 07/14/17 08/07/17 Rx Gel] Insulin Glargine,Hum.rec.anlog 24 unit SQ DAILY #0 07/14/17 08/07/17 Rx [Toujeo Solostar] Melatonin 3 mg PO HS PRN tablet 07/14/17 08/07/17 Rx Methadone [Dolophine] 5 mg PO Q8H #9 tab 07/14/17 08/07/17 Rx Metoprolol Tartrate [Lopressor] 100 mg PO BID tab 07/14/17 08/07/17 Rx Acetaminophen Tab [Tylenol Tab] 650 mg PO Q6H PRN 08/07/17 08/07/17 History Amiodarone [Cordarone] 200 mg PO DAILY 08/07/17 08/07/17 History Furosemide [Lasix] 60 mg PO BID 08/07/17 08/07/17 History INSULIN LISPRO (HumaLOG) [HumaLOG] See Protocol SQ ACHS 08/07/17 08/07/17 History INSULIN LISPRO (humaLOG) [humaLOG] 5 units SQ PC-TID 08/07/17 08/07/17 History Magnesium Hydroxide [Milk of 2,400 mg PO DAILY PRN 08/07/17 08/07/17 History Magnesia] Mylanta Double Strength Susp 10 ml PO Q4HR PRN 08/07/17 08/07/17 History Polyethylene Glycol 3350 [Miralax] 17 gm PO BID 08/07/17 08/07/17 History Sacubitril/Valsartan [Entresto 24 1 tab PO BID@0800,199908/07/17 08/07/17 History mg-26 mg Tablet] Warfarin [Coumadin] 2 mg PO DIRECTED 08/07/17 08/07/17 History Warfarin [Coumadin] 2.5 mg PO DIRECTED 08/07/17 08/07/17 History Allergies Allergy/AdvReac Type Severity Reaction Status Date / Time Sulfa (Sulfonamide Allergy Rash/Hives Verified 08/07/17 22:17 Antibiotics) Physical Exam Vitals: Vital Signs Temp Pulse Pulse Resp BP BP Pulse Ox 08/09/17 07:31 78 08/09/17 07:21 76 08/09/17 04:00 97.5 F L 66 16 101/54 96 08/09/17 00:00 97.5 F L 62 16 118/64 97 08/08/17 20:00 97.8 F 83 18 132/82 96 08/08/17 16:00 97.3 F L 79 16 144/78 96 08/08/17 15:56 78 18 164/82 96 08/08/17 12:00 97.0 F L 81 18 166/82 96 08/08/17 10:09 83 18 155/77 96 Intake and Output 08/08/17 08/09/17 08/09/17 22:59 06:59 14:59 Intake Total 240 600 Output Total 1900 550 700 Balance -1660 -550 -100 Intake: Oral 240 600 Output: Urine 1900 550 700 Other: Voiding Method Urinal Urinal # Voids 2 0 1 # Bowel Movements 0 Weight 112.491 kg 114.8 kg General appearance: The patient is alert, oriented, in no acute distress. HET: Head is normocephalic and atraumatic. Pupils are equal and reactive. Oropharynx is clear without lesions. Neck: Supple without lymphadenopathy. Trachea midline. Heart: S1 S2. Lungs: No crackles or wheezes are heard. Abdomen: Soft, nontender, nondistended with bowel sounds. No peritoneal signs. No palpable organomegaly or masses. Extremities: Mild right hemiparesis. Normal skin color and turgor. No cyanosis , rash, ulceration, clubbing, or edema. Radial and pedal pulses are 2/4 bilaterally. Neurological: No focal deficits. Strength and sensation are grossly intact. Results CBC & Chem 7: 08/08/17 06:17 08/09/17 06:15 Labs: Abnormal Lab Results - Last 24 Hours (Table) 08/08/17 08/08/17 08/08/17 Range/Units 12:04 16:44 18:27 Sodium (137-145) mmol/L Chloride (98-107) mmol/L Carbon Dioxide (22-30) mmol/L BUN (9-20) mg/dL Glucose (74-99) mg/dL POC Glucose (mg/dL) 256 H 183 H 227 H (75-99) mg/dL Calcium (8.4-10.2) mg/dL 08/08/17 08/09/17 08/09/17 Range/Units 21:06 06:15 06:15 Sodium 128 L (137-145) mmol/L Chloride 83 L (98-107) mmol/L Carbon Dioxide 35 H (22-30) mmol/L BUN 21 H (9-20) mg/dL Glucose 147 H (74-99) mg/dL POC Glucose (mg/dL) 105 H 142 H (75-99) mg/dL Calcium 8.2 L (8.4-10.2) mg/dL Assessment and Plan (1) Dysphagia Narrative/Plan: 76-year-old male admitted with acute CHF and dysphagia in the upper esophageal region greater than 6 months duration more so with solids than liquids. Current Visit: Yes Status: Acute Code(s): R13.10 - DYSPHAGIA, UNSPECIFIED SNOMED Code(s): 10243367 (2) Congestive heart failure Current Visit: Yes Status: Acute Code(s): I50.9 - HEART FAILURE, UNSPECIFIED SNOMED Code(s): 14847296 (3) Chronic atrial fibrillation Current Visit: Yes Status: Acute Code(s): I48.2 - CHRONIC ATRIAL FIBRILLATION SNOMED Code(s): 884085892 (4) Warfarin-induced coagulopathy Current Visit: Yes Status: Acute Code(s): D68.32 - HEMORRHAGIC DISORD D/T EXTRINSIC CIRCULATING ANTICOAGULANTS; T45.515A - ADVERSE EFFECT OF ANTICOAGULANTS, INITIAL ENCOUNTER SNOMED Code(s): 08708034 (5) Diabetes mellitus Current Visit: Yes Status: Acute Code(s): E11.9 - TYPE 2 DIABETES MELLITUS WITHOUT COMPLICATIONS SNOMED Code(s): 57955126 (6) Ischemic cardiomyopathy Current Visit: Yes Status: Acute Code(s): I25.5 - ISCHEMIC CARDIOMYOPATHY SNOMED Code(s): 011123498 (7) History of CVA (cerebrovascular accident) Current Visit: Yes Status: Acute Code(s): Z86.73 - PRSNL HX OF TIA (TIA), AND CEREB INFRC W/O RESID DEFICITS SNOMED Code(s): 513300644 Plan: 1. Esophagram. 2. Inpatient EGD pending esophagram results if so warfarin will need to be held until INR is around 1.5 or less. Continue with a modified pureed diet. 3. Protonix 40 mg daily. We'll follow with you. Thank you for this kind referral and the opportunity to participate in the care of your patient. This consultation was discussed with Dr. Ruiz. The impression and plan of care have been directed as dictated.
--- NOTE | 2017-08-09 11:40 | FL ---
EXAMINATION TYPE: FL esophagus cervic/pharynx DATE OF EXAM: 08/09/2017 HISTORY: Dysphasia COMPARISON: NONE TECHNIQUE: Single contrast study was performed. FINDINGS: 46 seconds fluoroscopy time was provided for procedure. 7 images were obtained Limited esophagram with single contrast was performed in the semiupright position at approximately 60 degrees due to the patient's physical condition. Patient was very cooperative for the examination. Esophagus dilates to normal caliber has normal contour to the gastroesophageal junction. Gastroesopha geal junction opens to normal caliber without hesitancy. Secondary and tertiary contractions were amol dent during the examination. During the examination some additional contrast wasn't identified within the esophagus which was felt to be related to some reflux. IMPRESSION: 1. Presbyesophagus. 2. Mild reflux.
[2017-08-09] MEDS ORDERED: MAGNESIUM CITRATE 296 ML BOTTLE PO ONE (11:51)
[2017-08-09 11:52] LABS: Hemoglobin A1C 8.4 % (4.0-6.0)
[2017-08-09 11:54] LABS: Glucose,Whole Blood 175 mg/dL (75-99)
[2017-08-09] MEDS: MULTIVITAMINS, THERA 1 EACH TAB PO SCH (12:26)
[2017-08-09 14:38] VITALS: BMI 32.5
[2017-08-09] MEDS: FUROSEMIDE 80 MG TAB PO SCH (15:45)
[2017-08-09 16:24] LABS: Glucose,Whole Blood 190 mg/dL (75-99)
[2017-08-09] MEDS: ASPIRIN 81 MG PO SCH (19:53)
[2017-08-09] MEDS: MONTELUKAST 10 MG TAB PO SCH (19:53)
[2017-08-09] MEDS: ATORVASTATIN 10 MG TAB PO SCH (19:53)
[2017-08-09 21:37] LABS: Glucose,Whole Blood 213 mg/dL (75-99)
[2017-08-09] MEDS: ACETAMINOPHEN TAB 325 MG TAB PO PRN (21:58)
[2017-08-10 06:20] LABS: Glucose,Whole Blood 163 mg/dL (75-99)
[2017-08-10 07:05] LABS: Anion Gap 10 mmol/L; Blood Urea Nitrogen 28 mg/dL (9-20); Calcium 8.2 mg/dL (8.4-10.2); Carbon Dioxide 35 mmol/L (22-30); Chloride 84 mmol/L (98-107); Glucose 175 mg/dL (74-99); Potassium 4.5 mmol/L (3.5-5.1); Sodium 129 mmol/L (137-145)
[2017-08-10] MEDS: metFORMIN 500 MG TAB PO SCH ×2 (07:14→17:34)
[2017-08-10] MEDS: INSULIN ASPART 100 UNIT/ML 1 ML 10 ML VIAL SQ SCH ×7 (07:14→20:42)
[2017-08-10] MEDS: PANTOPRAZOLE 40 MG/10 ML VIAL IVP SCH (07:55)
[2017-08-10] MEDS: SACUBITRIL/VALSARTAN 24 MG-26 MG TABLET PO SCH ×2 (07:56→20:27)
[2017-08-10] MEDS: FUROSEMIDE 80 MG TAB PO SCH ×2 (07:56→17:34)
[2017-08-10] MEDS: METOPROLOL TARTRATE 50 MG TAB PO SCH ×2 (07:56→20:27)
[2017-08-10] MEDS: hydrALAZINE HCL 25 MG TAB PO SCH ×2 (07:56→20:27)
[2017-08-10] MEDS: CYANOCOBALAMIN 500 MCG TAB PO SCH (07:56)
[2017-08-10] MEDS: METHADONE 5 MG TAB PO SCH ×3 (07:57→23:45)
[2017-08-10] MEDS: AMIODARONE 200 MG TAB PO SCH (07:57)
[2017-08-10] MEDS: SERTRALINE 100 MG TAB PO SCH (07:57)
[2017-08-10] MEDS: methylPREDNISolone SOD SUCCI 40 MG/ML 1 ML VIAL IV SCH ×2 (07:58→17:43)
--- NOTE | 2017-08-10 09:03 | PN ---
PROGRESS NOTE DATE OF SERVICE: 08/09/2017. PRESENTING COMPLAINT: Short of breath. INTERVAL HISTORY: This patient was seen by me yesterday. Admitted with CHF exacerbation and COPD exacerbation. Breathing is better, actually sitting up, the patient actually got a shower. The patient also had a colonoscopy and esophagogram showing some Presbyesophagus, explaining some of his swallowing difficulties. This has been going on for quite a while. Patient's is present. The patient remains on IV Lasix. REVIEW OF SYSTEMS: Done for constitutional, cardiovascular, GI, pulmonary; relevant findings as above. CURRENT MEDICATIONS: Reviewed, include IV Lasix, IV Solu-Medrol, DuoNeb. PHYSICAL EXAMINATION: Temperature 97.8, pulse 88, respiration 16, blood pressure 140/91, pulse ox 93% on 3 L. GENERAL APPEARANCE: Sitting up in a chair, more comfortable, little bit anxious. EYES: Pupils equal. Conjunctivae normal. HEENT: External appearance of nose and ears normal. Oral cavity normal. NECK: JVD unable to assess. Mass not palpable. Respiratory effort increased. LUNGS: Accessory muscles are working far less. Diminished breath sounds. Less wheezing. CARDIOVASCULAR: First heart sound is irregular. Decreased edema. ABDOMEN: Soft, nontender. Liver and spleen not palpable. PSYCHIATRY: Alert and oriented x3. Mood and affect, less anxious-appearing. NEUROLOGICAL: Power on the right side is 4/5. INVESTIGATIONS: Potassium 4.4, BUN 21, creatinine 0.74, sodium 128. Pharyngolaryngoesophagogram under fluoroscopy shows some presbyesophagus. ASSESSMENT: 1. Acute on chronic congestive heart failure exacerbation from systolic dysfunction. Ejection fraction 30% to 35% from ischemic cardiomyopathy. 2. Persistent atrial fibrillation. 3. Diabetes mellitus type 2, chronically on insulin, uncontrolled with hyperglycemia from being on steroids. 4. Hyperlipidemia. 5. Essential hypertension. 6. Chronic fibromyalgia. 7. Hiatal hernia. 8. 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 9. Herniated disk of the lumbar spine. 10.Peripheral neuropathy secondary to diabetes. 11.Coronary artery disease, prior history of stent. 12.Depression not otherwise specified. 13.Gait dysfunction, uses a walker. 14.Acute chronic obstructive pulmonary disease exacerbation. 15.Troponin leak from hemodynamic mismatch, not unstable angina. 16.Hyponatremia, slowly improving, present on admission. 17.Dysphagia, likely from presbyesophagus. PLAN: Hopefully patient's Lasix can be converted to p.o. Continue with IV steroids and bronchodilators. Care was discussed at length with the patient and the at the bedside. GI is also following the case. The patient was reassured. DIVINA / JEFRY: [id number] /
[2017-08-10] MEDS: IPRATROPIUM-ALBUTEROL 3 ML NEB INHALATION SCH ×4 (09:06→19:15)
--- NOTE | 2017-08-10 09:32 | P.PN ---
Subjective Progress Note Date: 08/10/17 Principal diagnosis: Dysphagia Tolerating modified diet. Esophagram cervix to her next reported presbyesophagus mild reflux. Objective - Vital Signs Vital signs: Vital Signs Temp 96.7 F L 08/10/17 04:00 Pulse 74 08/10/17 04:00 Resp 16 08/10/17 04:00 BP 123/72 08/10/17 04:00 Pulse Ox 94 L 08/10/17 04:00 Intake & Output 08/09/17 08/10/17 08/10/17 18:59 06:59 18:59 Intake Total 1130 Output Total 1100 900 Balance 30 -900 Weight 114.8 kg 115.5 kg Intake: Oral 1130 Output: Urine 1100 900 Other: Voiding Method Urinal Urinal # Voids 1 1 # Bowel Movements 1 - Exam General appearance: The patient is alert, oriented, in no acute distress. HET: Head is normocephalic and atraumatic. Pupils are equal and reactive. Oropharynx is clear without lesions. Neck: Supple without lymphadenopathy. Trachea midline. Heart: S1 S2. Lungs: No crackles or wheezes are heard. Abdomen: Soft, nontender, nondistended with bowel sounds. No peritoneal signs. No palpable organomegaly or masses. Extremities: Normal skin color and turgor. No cyanosis, rash, ulceration, clubbing, or edema. Radial and pedal pulses are 2/4 bilaterally. Neurological: No focal deficits. Strength and sensation are grossly intact. - Labs CBC & Chem 7: 08/08/17 06:17 08/10/17 06:10 Labs: Abnormal Lab Results - Last 24 Hours (Table) 08/09/17 08/09/17 08/09/17 Range/Units 06:15 11:52 16:22 Sodium (137-145) mmol/L Chloride (98-107) mmol/L Carbon Dioxide (22-30) mmol/L BUN (9-20) mg/dL Glucose (74-99) mg/dL POC Glucose (mg/dL) 175 H 190 H (75-99) mg/dL Hemoglobin A1c 8.4 H (4.0-6.0) % Calcium (8.4-10.2) mg/dL 08/09/17 08/10/17 08/10/17 Range/Units 21:35 06:10 06:18 Sodium 129 L (137-145) mmol/L Chloride 84 L (98-107) mmol/L Carbon Dioxide 35 H (22-30) mmol/L BUN 28 H (9-20) mg/dL Glucose 175 H (74-99) mg/dL POC Glucose (mg/dL) 213 H 163 H (75-99) mg/dL Hemoglobin A1c (4.0-6.0) % Calcium 8.2 L (8.4-10.2) mg/dL Assessment and Plan (1) Presbyesophagus Current Visit: Yes Status: Acute Code(s): K22.8 - OTHER SPECIFIED DISEASES OF ESOPHAGUS SNOMED Code(s): 735358946 (2) Dysphagia Current Visit: Yes Status: Acute Code(s): R13.10 - DYSPHAGIA, UNSPECIFIED SNOMED Code(s): 84226553 (3) Congestive heart failure Current Visit: Yes Status: Acute Code(s): I50.9 - HEART FAILURE, UNSPECIFIED SNOMED Code(s): 04002719 (4) Chronic atrial fibrillation Current Visit: Yes Status: Acute Code(s): I48.2 - CHRONIC ATRIAL FIBRILLATION SNOMED Code(s): 524890550 (5) Warfarin-induced coagulopathy Current Visit: Yes Status: Acute Code(s): D68.32 - HEMORRHAGIC DISORD D/T EXTRINSIC CIRCULATING ANTICOAGULANTS; T45.515A - ADVERSE EFFECT OF ANTICOAGULANTS, INITIAL ENCOUNTER SNOMED Code(s): 59220682 (6) Diabetes mellitus Current Visit: Yes Status: Acute Code(s): E11.9 - TYPE 2 DIABETES MELLITUS WITHOUT COMPLICATIONS SNOMED Code(s): 25378999 (7) Ischemic cardiomyopathy Current Visit: Yes Status: Acute Code(s): I25.5 - ISCHEMIC CARDIOMYOPATHY SNOMED Code(s): 284499914 (8) History of CVA (cerebrovascular accident) Current Visit: Yes Status: Acute Code(s): Z86.73 - PRSNL HX OF TIA (TIA), AND CEREB INFRC W/O RESID DEFICITS SNOMED Code(s): 467805135 Plan: 1. Soft chopped diet avoid breads and thicker meats. Patient was advised to cut his foods in small pieces eat slowly. Sit upright at least 30 minutes after eating to avoid aspiration. Inpatient endoscopy not planned at this time. Continue GI prophylaxis. Assessment and plan a care discussed with Dr. Ruiz
[2017-08-10] MEDS: INSULIN DETEMIR 100 UNIT/ML 10 ML VIAL SQ SCH (10:02)
[2017-08-10 11:57] LABS: Glucose,Whole Blood 250 mg/dL (75-99)
[2017-08-10] MEDS: MULTIVITAMINS, THERA 1 EACH TAB PO SCH (12:18)
--- NOTE | 2017-08-10 12:24 | P.PN ---
Subjective Progress Note Date: 08/10/17 This is a 76-year-old gentleman who follows with Dr. BEN Gardner in the office. He has known history of chronic persistent atrial fibrillation, prior CVA, diabetes, coronary artery disease with prior LAD stent in 2001, prior attempted cardioversion, unsuccessful, hypertension, hyperlipidemia, was recently in the hospital in June of this year with a non-ST elevation myocardial infarction. An echocardiogram with Doppler study was performed on that admission which revealed an ejection fraction of 35-40%. Patient was discharged to [facility], he is admitted to the hospital with difficulty in swallowing. Patient states that for the past 3 days whenever he swallows anything a large or small he feels like it gets stuck at the base of his throat , and makes him quite short of breath, and causes him to cough. For this reason he came to the emergency room for further evaluation. EKG on arrival here showed atrial fibrillation with a controlled ventricular response. Chest x -ray showed congestive heart failure with increasing pleural fluid as compared with prior here blood pressure on arrival 160/90, heart rate in the 90s, temperature 90.8, 94% on 6 L. White blood cell count is normal, hemoglobin 11.2 , platelet count 205. INR 3.6, sodium on admission 122, 128 this morning. BUN 21, creatinine 0.7. BNP 6820, troponin 0.112. At the time of my examination this morning, patient had just eaten his breakfast and was again complaining of a fullness feeling and blocked tight feeling at the base of his throat. 08/10/2017 Patient did undergo a fluoroscopy yesterday which revealed presbyesophagus esophagus and mild reflux. Patient was also seen in consultation by GI service and recommended soft chopped diet, avoid breads and thicker meets. Sit upright at least 30 minutes after eating to avoid aspiration. Breathing is otherwise stable, blood pressure 140/60 with a heart rate in the 70s, 95% on 3 L of oxygen. Sodium 129, potassium 4.5, BUN 28, creatinine 0.7. Objective - Vital Signs Vital signs: Vital Signs Temp 97.8 F 08/10/17 08:00 Pulse 88 08/10/17 11:48 Resp 18 08/10/17 08:00 BP 142/65 08/10/17 08:00 Pulse Ox 96 08/10/17 11:37 Intake & Output 08/09/17 08/10/17 08/10/17 18:59 06:59 18:59 Intake Total 1130 Output Total 1100 900 Balance 30 -900 Weight 114.8 kg 115.5 kg Intake: Oral 1130 Output: Urine 1100 900 Other: Voiding Method Urinal Urinal Bedside Commode Urinal # Voids 1 1 # Bowel Movements 1 - Exam PHYSICAL EXAMINATION: GENERAL: 76-year-old gentleman in no apparent distress at the time of my examination HEENT: Head is atraumatic, normocephalic. Pupils equal, round. Sclera anicteric. Conjunctiva are clear. Mucous membranes of the mouth are moist. Neck is supple. There is no elevated jugular venous pressure.] bruit is heard. HEART EXAMINATION: Heart S1 and S2 irregularly irregular a systolic murmur is heard. CHEST EXAMINATION: Lungs reveal scattered coarse wheezes throughout. ABDOMEN: Soft, nontender. Bowel sounds are heard. No organomegaly noted. EXTREMITIES: 2+ peripheral pulses with trace evidence of peripheral edema and no calf tenderness noted. NEUROLOGIC patient is awake, alert and oriented -3. - Labs CBC & Chem 7: 08/08/17 06:17 08/10/17 06:10 Labs: Abnormal Lab Results - Last 24 Hours (Table) 08/09/17 08/09/17 08/09/17 Range/Units 06:15 16:22 21:35 Sodium (137-145) mmol/L Chloride (98-107) mmol/L Carbon Dioxide (22-30) mmol/L BUN (9-20) mg/dL Glucose (74-99) mg/dL POC Glucose (mg/dL) 190 H 213 H (75-99) mg/dL Hemoglobin A1c 8.4 H (4.0-6.0) % Calcium (8.4-10.2) mg/dL 08/10/17 08/10/17 08/10/17 Range/Units 06:10 06:18 11:55 Sodium 129 L (137-145) mmol/L Chloride 84 L (98-107) mmol/L Carbon Dioxide 35 H (22-30) mmol/L BUN 28 H (9-20) mg/dL Glucose 175 H (74-99) mg/dL POC Glucose (mg/dL) 163 H 250 H (75-99) mg/dL Hemoglobin A1c (4.0-6.0) % Calcium 8.2 L (8.4-10.2) mg/dL Assessment and Plan Plan: Assessment and plan #1 symptoms of difficulty in swallowing, patient has been seen and evaluated by GI service and will be scheduled to undergo video fluoroscopy later today. #2 systolic congestive heart failure acute on chronic #3 hyponatremia #4 ischemic cardiomyopathy with documented ejection fraction of 35-40%. #5 hypertension #6 diabetes #7 hyperlipidemia #8 history of CVA with right-sided weakness #9 chronic persistent atrial fibrillation #10 abnormal troponin Plan Patient has been seen and evaluated by GI service. From cardiology's perspective he may be able to be discharged once cleared by primary. We will recommend a follow-up appointment with Dr. Jessi Gardner in the office post discharge. DNP note has been reviewed, I agree with a documented findings and plan of care. Patient was seen and examined.
[2017-08-10] MEDS: MORPHINE SULFATE 2 MG/ML SYRINGE IV PRN (13:50)
[2017-08-10 17:02] LABS: Glucose,Whole Blood 254 mg/dL (75-99)
--- NOTE | 2017-08-10 17:14 | XR ---
EXAMINATION TYPE: XR Hip Complete RT DATE OF EXAM: 08/10/2017 COMPARISON: NONE HISTORY: Right hip pain TECHNIQUE: 2 views FINDINGS: Proximal femur and hip joint appear intact. Hip joint space is fairly normal. I see no frac ture nor dislocation. IMPRESSION: Negative right hip exam. There is noted rounded partially visualized calcification over t he pubic bone. If there is no history of oral contrast then a bladder calculus is possible.
--- NOTE | 2017-08-10 18:08 | P.PN ---
Subjective Progress Note Date: 08/10/17 Principal diagnosis: Acute COPD exacerbation, acute exacerbation of congestive heart failure related to acute on chronic systolic heart failure baseline ejection fraction of 35%, uncontrolled hypertension, dysphagia, electrolyte imbalance with severe hyponatremia 08/10/2017, patient seen eval reexamined during the rounds clinically doing slightly better wheezing is improved patient remains on IV steroids and breathing treatments, patient has been evaluated by barium swallow with fluoroscopy, noted to have presbyesophagus and has been advised by nutrition services to have chopped diet and thick meat to sit upright to avoid aspiration these findings reviewed with the patient 77-year-old male who was seen evaluated examined on 6 floor this patient has been admitted to hospital with progressive increasing shortness of breath intermittent dry nonproductive cough also has problems associated with swallowing, patient has a recent history of acute non-ST segment elevated ID with acute on chronic systolic heart failure baseline ejection fraction was only 30% patient also has history of chronic atrial fibrillation right hemiparesis related to prior stroke patient has other significant medical problems including complicated type 2 diabetes mellitus dyslipidemia hypertension hypertensive cardiovascular disease and chronic neuropathy, patient on arrival to emergency department was given furosemide and responded well with improvement in swelling but however continued to have significant wheezing, patient has been on IV steroids and breathing treatments, patient is being evaluated with videofluoroscopy scheduled later on today for his swallowing dysfunction, lately patient is a hint having problems more with solid food, on specific questioning he denies any seizure-like to a loss of consciousness, and denies any chest pain or radiation of pain does have ongoing shortness of breath which is overall stable denies any cough or sputum production most of the time, denies any bowel or bladder related problem Objective - Vital Signs Vital signs: Vital Signs Temp 97.1 F L 08/10/17 12:00 Pulse 92 08/10/17 15:49 Resp 16 08/10/17 15:49 BP 127/71 08/10/17 12:00 Pulse Ox 91 L 08/10/17 15:39 Intake & Output 08/09/17 08/10/17 08/10/17 18:59 06:59 18:59 Intake Total 1130 200 Output Total 1100 900 Balance 30 -900 200 Weight 114.8 kg 115.5 kg Intake: Oral 1130 200 Output: Urine 1100 900 Other: Voiding Method Urinal Urinal Bedside Commode Urinal # Voids 1 1 1 # Bowel Movements 1 1 - Exam Constitutional General appearance: cooperative, disheveled, mild distress - EENT Eyes: PERRLA, normal appearance ENT: hard of hearing, normal oropharynx Ears: bilateral: normal - Neck Neck: normal ROM Carotids: bilateral: upstroke normal, bruit absent - Respiratory Respiratory: bilateral: diminished, rales (Less than one fourth of the lung), rhonchi (Both during inspiratory expiratory phase), wheezing (Both during inspiratory and expiratory phase), prolonged expiration, negative: CTA, dullness - Cardiovascular Rhythm: irregularly irregular Heart sounds: normal: S1, S2 - Gastrointestinal General gastrointestinal: decreased bowel sounds, soft - Integumentary Integumentary: normal turgor - Neurologic Neurologic: CNII-XII intact, focal deficits - Musculoskeletal Musculoskeletal: gait normal, generalized weakness, strength equal bilaterally, right sided weakness - Psychiatric Psychiatric: A&O x's 3, appropriate affect, intact judgment & insight - Labs CBC & Chem 7: 08/08/17 06:17 08/10/17 06:10 Labs: Abnormal Lab Results - Last 24 Hours (Table) 08/09/17 08/10/17 08/10/17 Range/Units 21:35 06:10 06:18 Sodium 129 L (137-145) mmol/L Chloride 84 L (98-107) mmol/L Carbon Dioxide 35 H (22-30) mmol/L BUN 28 H (9-20) mg/dL Glucose 175 H (74-99) mg/dL POC Glucose (mg/dL) 213 H 163 H (75-99) mg/dL Calcium 8.2 L (8.4-10.2) mg/dL 08/10/17 08/10/17 Range/Units 11:55 16:54 Sodium (137-145) mmol/L Chloride (98-107) mmol/L Carbon Dioxide (22-30) mmol/L BUN (9-20) mg/dL Glucose (74-99) mg/dL POC Glucose (mg/dL) 250 H 254 H (75-99) mg/dL Calcium (8.4-10.2) mg/dL Assessment and Plan Assessment: Acute hypoxic respiratory failure related to acute COPD exacerbation and acute exacerbation of congestive heart failure related to acute on chronic systolic heart failure Acute COPD exacerbation Acute exacerbation of congestive heart failure related to acute on chronic systolic heart failure with baseline ejection fraction of 30% Cardiomyopathy with baseline ejection fraction of 30% likely ischemic chronic in nature Dysphagia of Presbyesophagus Severe hyponatremia Generalized weakness and medical debility History of CVA with right hemiparesis Plan: Agree with swallowing evaluation monitor observe aspiration precaution and appropriate diet plan Gentle diuresis Deep breathing exercises incentive spirometry Continue anticoagulation as per plan IV steroids and breathing treatments, patient seems to be responding well will maintain current dose Maintain patient on peptic ulcer disease prophylaxis Aspiration precautions Further recommendations pending plan of care as per clinical response of the patient Time with Patient: Greater than 30
[2017-08-10] MEDS: ASPIRIN 81 MG PO SCH (20:27)
[2017-08-10] MEDS: MONTELUKAST 10 MG TAB PO SCH (20:27)
[2017-08-10] MEDS: ATORVASTATIN 10 MG TAB PO SCH (20:27)
[2017-08-10 20:38] LABS: Glucose,Whole Blood 261 mg/dL (75-99)
--- NOTE | 2017-08-10 23:57 | PN ---
PROGRESS NOTE DATE OF SERVICE: 08/10/2017 PRESENTING COMPLAINT: Tired. INTERVAL HISTORY: Patient admitted with CHF exacerbation and COPD exacerbation, doing much better. Breathing is much improved. The patient did not have a colonoscopy, that was a typo in my progress note earlier. Had a esophagogram showing press by esophagus. is present. The patient is complaining of pain in the right hip, appears to be a possible switched over to oral Lasix. REVIEW OF SYSTEMS: Done for constitutional, cardiovascular, GI, pulmonary; relevant findings as above. CURRENT MEDICATIONS: Reviewed that include DuoNeb, IV Solu-Medrol and p.o. Lasix. EXAMINATION: Temperature 97.1, pulse 71, respiratory 18, blood pressure 127/71, pulse ox 94% on room air. GENERAL APPEARANCE: Sitting up, more comfortable. EYES: Pupils are equal. Conjunctivae are normal. HEENT: External appearance of nose and ears normal. Oral cavity normal. NECK: JVD not raised. Mass not palpable. Respiratory effort increased. LUNGS: Improved air entry, but decreased breath sounds, less wheezing. CARDIOVASCULAR: Sounds irregular. Edema, much improved. ABDOMEN: Soft, nontender. Liver and spleen not palpable. PSYCHIATRY: Alert and oriented x3. Mood and affect normal. Weakness on the right side is 4/5. INVESTIGATIONS: BUN 28, creatinine 0.70. ASSESSMENT: 1. [id number] congestive heart failure exacerbation from systolic dysfunction, ejection fraction 30% to 35% from ischemic cardiomyopathy. 2. Persistent atrial fibrillation. 3. Diabetes mellitus type 2, chronically on insulin, uncontrolled with hyperglycemia from being on steroids. 4. Hyperlipidemia. 5. Essential hypertension. 6. Chronic fibromyalgia. 7. Hiatal hernia. 8. 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 9. Herniated disc of the lumbar spine. 10.Peripheral neuropathy secondary to diabetes. 11.Coronary artery disease, prior history of stent. 12.Depression, not otherwise specified. 13.Gait dysfunction uses a walker. 14.Acute chronic obstructive pulmonary disease exacerbation. 15.Troponin leak from hemodynamic mismatch, not unstable angina. 16.Hyponatremia, improving. 17.Presbyesophagus causing dysphagia. PLAN: Care was discussed with the patient's . Switched over to oral Lasix. Will cut back to oral prednisone in the morning. Hopefully the patient can be discharged tomorrow. Care was discussed with the patient and in detail. MMODL / IJN: [id number] /
[2017-08-11 06:07] LABS: Glucose,Whole Blood 178 mg/dL (75-99)
[2017-08-11] MEDS: INSULIN ASPART 100 UNIT/ML 1 ML 10 ML VIAL SQ SCH ×4 (06:43→14:59)
[2017-08-11] MEDS: ACETAMINOPHEN TAB 325 MG TAB PO PRN ×2 (06:44→14:57)
[2017-08-11] MEDS: metFORMIN 500 MG TAB PO SCH (06:44)
[2017-08-11] MEDS: IPRATROPIUM-ALBUTEROL 3 ML NEB INHALATION SCH ×3 (07:56→16:17)
--- NOTE | 2017-08-11 08:52 | XR ---
EXAMINATION TYPE: XR shoulder complete RT DATE OF EXAM: 08/11/2017 CLINICAL HISTORY: Chronic right shoulder pain. No new injury. TECHNIQUE: Three views of the right shoulder are obtained. COMPARISON: None. FINDINGS: There is no acute fracture/dislocation evident in the right shoulder. The acromioclavicul ar and glenohumeral joint spaces appear narrowed with opposing surface sclerosis and [id number] art iculation of the glenohumeral joint. Mild acromioclavicular arthropathy is also noted. Small osseous fragment representing a loose body is seen inferior to the glenoid. The visualized ribs are intact an d unremarkable. IMPRESSION: There is no acute fracture or dislocation in the right shoulder. Moderate to advanced ar thropathy of the right shoulder with [id number] articulation of the glenohumeral joint and opposing surface sclerosis. Mild acromioclavicular arthropathy.
[2017-08-11] MEDS ORDERED: predniSONE 20 MG TAB PO SCH (09:00)
--- NOTE | 2017-08-11 09:07 | P.CNOR ---
History of Present Illness - HPI Consult date: 08/11/17 History of present illness: This is a 76-year-old male who is admitted for congestive heart failure and COPD exacerbation. Patient complains of right shoulder and right hip pain. Patient states that the right shoulder pain is chronic. Patient states that he normally gets cortisone injections into the right shoulder and is overdue. Patient denies any new injury, numbness, weakness or tingling of the right upper extremity. Patient also complains of chronic right hip pain. Patient states that he has a history of spine surgery. Patient states that about a month ago he started having similar pain in the right hip as he had before his spine surgery. Patient states pain is localized to the groin. Patient states that he uses a wheelchair or walker at home. Patient has right sided weakness from a prior stroke. Patient states that the pain shoots from his right hip to the top of his right foot. Patient denies any numbness, weakness, fever/chills, or tingling. Review of Systems See HPI. Past Medical History Past Medical History: Atrial Fibrillation, Asthma, Coronary Artery Disease (CAD) , Heart Failure, COPD, CVA/TIA, Diabetes Mellitus, Eye Disorder, Fibromyalgia, GERD/Reflux, Hyperlipidemia, Hypertension, Musculoskeletal Disorder, Osteoarthritis (OA), Pneumonia, Prostate Disorder Additional Past Medical History / Comment(s): IDDM type II, neuropathy bilateral feet, ischemic cardiomyopathy, Afib with RVR, 2009 CVA with R sided weaknes upper and lower extremities, gait dysfunction, bilateral eyes glaucoma, hiatal hernia and gets food "stuck" at times, chronic low back pain, herniated discs, TURP for BPH, insomnia History of Any Multi-Drug Resistant Organisms: None Reported Past Surgical History: Back Surgery, Heart Catheterization With Stent, Orthopedic Surgery, Prostate Surgery Additional Past Surgical History / Comment(s): PCI with stent to LAD in 2001, unsuccessful cardioversion in 2017, endoscopic sinus surgery/polypectomy, colonoscopy, TURP, bilateral hydrocelectomy, low back surgery. Past Anesthesia/Blood Transfusion Reactions: No Reported Reaction Date of Last Stent Placement:: 2001 Smoking Status: Former smoker - Past Family History Mother Family Medical History: No Reported History Father Family Medical History: Cancer Additional Family Medical History / Comment(s): Father had prostrate cancer. Medications and Allergies Home Medications Medication Instructions Recorded Confirmed Type Aspirin 162 mg PO HS 11/26/13 08/07/17 History Lovastatin [Mevacor] 20 mg PO HS 11/26/13 08/07/17 History Montelukast Sodium [Singulair] 10 mg PO HS 11/26/13 08/07/17 History hydrOXYzine HCL [Atarax] 10 mg PO TID 11/26/13 08/07/17 History metFORMIN HCL 1,000 mg PO BID 11/26/13 08/07/17 History Ipratropium-Albuterol Nebulize 3 ml INHALATION RT-TID PRN 10/10/16 08/07/17 History [Duoneb 0.5 mg-3 mg/3 ml Soln] Multivitamins, Thera [Multivitamin 1 tab PO DAILY 10/10/16 08/07/17 History (formulary)] Omeprazole [PriLOSEC] 20 mg PO BID 10/10/16 08/07/17 History Sertraline [Zoloft] 100 mg PO DAILY 10/10/16 08/07/17 History Vits A,C,E/Lutein/Minerals 1 tab PO DAILY 10/10/16 08/07/17 History [Ocuvite with Lutein Tablet] Cyanocobalamin (Vitamin B-12) 1,000 mcg PO DAILY 11/11/16 08/07/17 History [Vitamin B-12] Liraglutide [Victoza 2-Garry] 0.6 mg SQ DAILY 07/08/17 08/07/17 History Nitroglycerin Sl Tabs [Nitrostat] 0.4 mg SUBLINGUAL Q5M PRN 07/08/17 08/07/17 History Triamcinolone 0.1% Cream [Kenalog] 1 applicatio TOPICAL TID PRN 07/08/17 History hydrALAZINE HCL [Apresoline] 25 mg PO BID 07/08/17 08/07/17 History Diclofenac Sodium Gel [Voltaren 4 gm TOPICAL QID PRN tube 07/14/17 08/07/17 Rx Gel] Insulin Glargine,Hum.rec.anlog 24 unit SQ DAILY #0 07/14/17 08/07/17 Rx [Toujeo Solostar] Melatonin 3 mg PO HS PRN tablet 07/14/17 08/07/17 Rx Methadone [Dolophine] 5 mg PO Q8H #9 tab 07/14/17 08/07/17 Rx Metoprolol Tartrate [Lopressor] 100 mg PO BID tab 07/14/17 08/07/17 Rx Acetaminophen Tab [Tylenol Tab] 650 mg PO Q6H PRN 08/07/17 08/07/17 History Amiodarone [Cordarone] 200 mg PO DAILY 08/07/17 08/07/17 History Furosemide [Lasix] 60 mg PO BID 08/07/17 08/07/17 History INSULIN LISPRO (HumaLOG) [HumaLOG] See Protocol SQ ACHS 08/07/17 08/07/17 History INSULIN LISPRO (humaLOG) [humaLOG] 5 units SQ PC-TID 08/07/17 08/07/17 History Magnesium Hydroxide [Milk of 2,400 mg PO DAILY PRN 08/07/17 08/07/17 History Magnesia] Mylanta Double Strength Susp 10 ml PO Q4HR PRN 08/07/17 08/07/17 History Polyethylene Glycol 3350 [Miralax] 17 gm PO BID 08/07/17 08/07/17 History Sacubitril/Valsartan [Entresto 24 1 tab PO BID@0800,2000 08/07/17 08/07/17 History mg-26 mg Tablet] Warfarin [Coumadin] 2 mg PO DIRECTED 08/07/17 08/07/17 History Warfarin [Coumadin] 2.5 mg PO DIRECTED 08/07/17 08/07/17 History Allergies Allergy/AdvReac Type Severity Reaction Status Date / Time Sulfa (Sulfonamide Allergy Rash/Hives Verified 08/07/17 22:17 Antibiotics) Physical Examination On exam patient is lying in bed in no acute distress. Patient is alert and oriented 3. Patient has full range of motion of the right upper extremity without pain or difficulty. There is no swelling, erythema or ecchymosis. There is no tenderness to palpation. Sensation intact to the right upper extremity. Neurovascular status and circulatory status are intact. On exam of the right hip, patient has full range of motion of the right hip without pain or difficulty. There is no pain with log roll of the right lower extremity, hip flexion, internal or external rotation. Calf is soft and nontender to palpation. Sensation intact. Patient has full foot and ankle motion without pain or difficulty. Neurovascular status and circulatory status are intact. Results An x-ray of the right hip dated 08/10/2017 is negative for any fracture or dislocation. Mild arthritic changes. An x-ray of the right shoulder dated 08/10/2017 shows moderate to severe arthritic changes. - Labs Labs: Abnormal Lab Results - Last 24 Hours (Table) 08/10/17 08/10/17 08/10/17 Range/Units 11:55 16:54 20:34 POC Glucose (mg/dL) 250 H 254 H 261 H (75-99) mg/dL 08/11/17 Range/Units 06:05 POC Glucose (mg/dL) 178 H (75-99) mg/dL H & H 08/07/17 08/08/17 Range/Units 22:02 06:17 Hgb 13.1 11.2 L (13.0-17.5) gm/dL Hct 41.6 35.5 L (39.0-53.0) % Coagulation 08/07/17 Range/Units 22:02 INR 3.6 H (<1.2) Result Diagrams: 08/08/17 06:17 08/10/17 06:10 Assessment and Plan (1) Right hip pain Current Visit: Yes Status: Acute Code(s): M25.551 - PAIN IN RIGHT HIP SNOMED Code(s): 81403093 (2) Congestive heart failure Current Visit: Yes Status: Acute Code(s): I50.9 - HEART FAILURE, UNSPECIFIED SNOMED Code(s): 27641725 (3) Chronic right shoulder pain Current Visit: Yes Status: Acute Code(s): M25.511 - PAIN IN RIGHT SHOULDER; G89.29 - OTHER CHRONIC PAIN SNOMED Code(s): 25740210102539589 (4) Primary osteoarthritis, right shoulder Current Visit: Yes Status: Acute Code(s): M19.011 - PRIMARY OSTEOARTHRITIS, RIGHT SHOULDER SNOMED Code(s): 22512538 Plan: 1. Patient's right hip pain could relate to his back. X-rays are negative for any fracture, dislocation or severe arthritis. 2. Weightbearing as tolerated to the right lower extremity using walker. 3. X-rays of the right shoulder are reviewed and show osteoarthritis. Patient may follow up as an outpatient for cortisone injections. 4. Will continue to follow the patient closely.
[2017-08-11] MEDS: SACUBITRIL/VALSARTAN 24 MG-26 MG TABLET PO SCH (09:26)
[2017-08-11] MEDS: FUROSEMIDE 80 MG TAB PO SCH ×2 (09:27→14:59)
[2017-08-11] MEDS: CYANOCOBALAMIN 500 MCG TAB PO SCH (09:27)
[2017-08-11] MEDS: AMIODARONE 200 MG TAB PO SCH (09:27)
[2017-08-11] MEDS: hydrALAZINE HCL 25 MG TAB PO SCH (09:27)
[2017-08-11] MEDS: METOPROLOL TARTRATE 50 MG TAB PO SCH (09:28)
[2017-08-11] MEDS: PANTOPRAZOLE 40 MG/10 ML VIAL IVP SCH (09:28)
[2017-08-11] MEDS: METHADONE 5 MG TAB PO SCH ×2 (09:32→15:01)
[2017-08-11] MEDS: MORPHINE SULFATE 2 MG/ML SYRINGE IV PRN (09:33)
[2017-08-11] MEDS: INSULIN DETEMIR 100 UNIT/ML 10 ML VIAL SQ SCH (09:33)
[2017-08-11 11:35] LABS: Glucose,Whole Blood 215 mg/dL (75-99)
[2017-08-11 12:21] VITALS: RESP 18; TEMP 97.8
--- NOTE | 2017-08-11 12:21 | P.PN ---
Subjective Progress Note Date: 08/11/17 HPI: 77-year-old male who was seen evaluated examined on 6 floor this patient has been admitted to hospital with progressive increasing shortness of breath intermittent dry nonproductive cough also has problems associated with swallowing, patient has a recent history of acute non-ST segment elevated GA with acute on chronic systolic heart failure baseline ejection fraction was only 30% patient also has history of chronic atrial fibrillation right hemiparesis related to prior stroke patient has other significant medical problems including complicated type 2 diabetes mellitus dyslipidemia hypertension hypertensive cardiovascular disease and chronic neuropathy, patient on arrival to emergency department was given furosemide and responded well with improvement in swelling but however continued to have significant wheezing, patient has been on IV steroids and breathing treatments, patient is being evaluated with videofluoroscopy scheduled later on today for his swallowing dysfunction, lately patient is a hint having problems more with solid food, on specific questioning he denies any seizure-like to a loss of consciousness, and denies any chest pain or radiation of pain does have ongoing shortness of breath which is overall stable denies any cough or sputum production most of the time, denies any bowel or bladder related problem Interval History: 08/11/17- patient is being seen and examined on rounds. The patient's resting up in bed on 2 L of supplemental oxygen via nasal cannula. He denies any cough at this time. Did have an orthopedic consult with him yesterday. He is noted to have some chronic arthritis. He continues to be on a chopped thick diet. He has been tolerating that well. Family is at bedside. He is afebrile no further complaints Objective - Vital Signs Vital signs: Vital Signs Temp 97.4 F L 08/11/17 04:00 Pulse 92 08/11/17 12:06 Resp 16 08/11/17 04:00 BP 143/84 08/11/17 04:00 Pulse Ox 95 08/11/17 04:00 Intake & Output 08/10/17 08/11/17 08/11/17 18:59 06:59 18:59 Intake Total 200 360 Output Total 500 Balance 200 -500 360 Weight 113.8 kg Intake: Oral 200 360 Output: Urine 500 Other: Voiding Method Bedside Commode Bedside Commode Urinal Urinal # Voids 1 2 1 # Bowel Movements 1 - Exam GENERAL EXAM: Alert, comfortable in no apparent distress. HEAD: Normocephalic. EYES: Normal reaction of pupils, equal size. NOSE: Clear with pink turbinates. THROAT: No erythema or exudates. NECK: No masses, no JVD. CHEST: No chest wall deformity. LUNGS: Lungs are noted to be diminished with some rhonchi and wheezing. CVS: S1 and S2 normal with no audible mumurs, irregular rhythm and rate. ABDOMEN: No hepatosplenomegaly, normal bowel sounds, no guarding or rigidity. EXTREMITIES: No edema noted, pedal pulses palpable. CENTRAL NERVOUS SYSTEM: No focal deficits, tone is normal in all 4 extremities. - Labs CBC & Chem 7: 08/08/17 06:17 08/10/17 06:10 Labs: Abnormal Lab Results - Last 24 Hours (Table) 08/10/17 08/10/17 08/11/17 Range/Units 16:54 20:34 06:05 POC Glucose (mg/dL) 254 H 261 H 178 H (75-99) mg/dL 08/11/17 Range/Units 11:33 POC Glucose (mg/dL) 215 H (75-99) mg/dL Assessment and Plan Assessment: Assessment: Acute hypoxic respiratory failure related to acute COPD exacerbation and acute exacerbation of congestive heart failure related to acute on chronic systolic heart failure Acute COPD exacerbation Acute exacerbation of congestive heart failure related to acute on chronic systolic heart failure with baseline ejection fraction of 30% Cardiomyopathy with baseline ejection fraction of 30% likely ischemic chronic in nature Dysphagia of Presbyesophagus Severe hyponatremia Generalized weakness and medical debility History of CVA with right hemiparesis Plan: Medications reviewed and will be continued as ordered Gentle diuresis Deep breathing exercises incentive spirometry Orthopedic recommendations Continue anticoagulation as per plan IV steroids and breathing treatments, patient seems to be responding well will maintain current dose Maintain patient on peptic ulcer disease prophylaxis Aspiration precautions Diet recommendations per PHYSICIAN/OPHTHALMOLOGIST Further recommendations pending plan of care as per clinical response of the patient We are covering for Dr. Nolen I performed an examination of the patient and discussed their management with the nurse practitioner. I have reviewed the nurse practitioner's note and agree with the documented findings and plan of care.
[2017-08-11 12:25] VITALS: BP 123/64; PULSE 61
--- NOTE | 2017-08-11 12:25 | P.PN ---
Subjective Progress Note Date: 08/11/17 This is a 76-year-old gentleman who follows with Dr. BEN Gardner in the office. He has known history of chronic persistent atrial fibrillation, prior CVA, diabetes, coronary artery disease with prior LAD stent in 2001, prior attempted cardioversion, unsuccessful, hypertension, hyperlipidemia, was recently in the hospital in June of this year with a non-ST elevation myocardial infarction. An echocardiogram with Doppler study was performed on that admission which revealed an ejection fraction of 35-40%. Patient was discharged to [facility], he is admitted to the hospital with difficulty in swallowing. Patient states that for the past 3 days whenever he swallows anything a large or small he feels like it gets stuck at the base of his throat , and makes him quite short of breath, and causes him to cough. For this reason he came to the emergency room for further evaluation. EKG on arrival here showed atrial fibrillation with a controlled ventricular response. Chest x -ray showed congestive heart failure with increasing pleural fluid as compared with prior here blood pressure on arrival 160/90, heart rate in the 90s, temperature 90.8, 94% on 6 L. White blood cell count is normal, hemoglobin 11.2 , platelet count 205. INR 3.6, sodium on admission 122, 128 this morning. BUN 21, creatinine 0.7. BNP 6820, troponin 0.112. At the time of my examination this morning, patient had just eaten his breakfast and was again complaining of a fullness feeling and blocked tight feeling at the base of his throat. 08/10/2017 Patient did undergo a fluoroscopy yesterday which revealed presbyesophagus esophagus and mild reflux. Patient was also seen in consultation by GI service and recommended soft chopped diet, avoid breads and thicker meets. Sit upright at least 30 minutes after eating to avoid aspiration. Breathing is otherwise stable, blood pressure 140/60 with a heart rate in the 70s, 95% on 3 L of oxygen. Sodium 129, potassium 4.5, BUN 28, creatinine 0.7. 08/11/2017 Patient was seen and examined this morning, at bedside. Feeling overall significantly better. Hemodynamically stable Objective - Vital Signs Vital signs: Vital Signs Temp 97.8 F 08/11/17 08:00 Pulse 92 08/11/17 12:06 Resp 18 08/11/17 08:00 BP 147/77 08/11/17 08:00 Pulse Ox 97 08/11/17 08:00 Intake & Output 08/10/17 08/11/17 08/11/17 18:59 06:59 18:59 Intake Total 200 360 Output Total 500 Balance 200 -500 360 Weight 113.8 kg Intake: Oral 200 360 Output: Urine 500 Other: Voiding Method Bedside Commode Bedside Commode Urinal Urinal # Voids 1 2 1 # Bowel Movements 1 - Exam PHYSICAL EXAMINATION: GENERAL: 76-year-old gentleman in no apparent distress at the time of my examination HEENT: Head is atraumatic, normocephalic. Pupils equal, round. Sclera anicteric. Conjunctiva are clear. Mucous membranes of the mouth are moist. Neck is supple. There is no elevated jugular venous pressure.] bruit is heard. HEART EXAMINATION: Heart S1 and S2 irregularly irregular a systolic murmur is heard. CHEST EXAMINATION: Lungs reveal scattered coarse wheezes throughout. ABDOMEN: Soft, nontender. Bowel sounds are heard. No organomegaly noted. EXTREMITIES: 2+ peripheral pulses with trace evidence of peripheral edema and no calf tenderness noted. NEUROLOGIC patient is awake, alert and oriented -3. - Labs CBC & Chem 7: 08/08/17 06:17 08/10/17 06:10 Labs: Abnormal Lab Results - Last 24 Hours (Table) 08/10/17 08/10/17 08/11/17 Range/Units 16:54 20:34 06:05 POC Glucose (mg/dL) 254 H 261 H 178 H (75-99) mg/dL 08/11/17 Range/Units 11:33 POC Glucose (mg/dL) 215 H (75-99) mg/dL Assessment and Plan Plan: Assessment and plan #1 symptoms of difficulty in swallowing, patient has been seen and evaluated by GI service and will be scheduled to undergo video fluoroscopy later today. #2 systolic congestive heart failure acute on chronic #3 hyponatremia #4 ischemic cardiomyopathy with documented ejection fraction of 35-40%. #5 hypertension #6 diabetes #7 hyperlipidemia #8 history of CVA with right-sided weakness #9 chronic persistent atrial fibrillation #10 abnormal troponin Plan From cardiology's perspective, patient may be able to be discharged home when cleared by primary. Follow-up appointment with Dr. Jessi Gardner in the office post discharge. DNP note has been reviewed, I agree with a documented findings and plan of care. Patient was seen and examined.
[2017-08-11] MEDS: SERTRALINE 100 MG TAB PO SCH (14:58)
[2017-08-11] MEDS: MULTIVITAMINS, THERA 1 EACH TAB PO SCH (14:58)
--- NOTE | 2017-08-11 22:58 | DS ---
DISCHARGE SUMMARY DATE OF ADMISSION: 08/05/2017. DATE OF DISCHARGE: 08/11/2017 FINAL DIAGNOSES: 1. Acute on chronic congestive heart failure from systolic dysfunction, ejection fraction 30%-35% from ischemic cardiomyopathy. 2. Persistent atrial fibrillation. 3. Diabetes mellitus type 2, chronically on insulin, uncontrolled with hyperglycemia from being on steroids. 4. Hyperlipidemia. 5. Essential hypertension. 6. Chronic fibromyalgia. 7. Hiatal hernia. 8. 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 9. 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 10.Peripheral neuropathy secondary to diabetes. 11.Coronary artery disease with prior history of stent. 12.Depression, not otherwise specified. 13.Gait dysfunction, uses a walker. 14.Acute chronic obstructive pulmonary disease exacerbation, present on admission. 15.Troponin leak from hemodynamic mismatch, not acute myocardial infarction. 16.Hyponatremia. 17.Presbyesophagus causing dysphagia, new diagnosis. PROCEDURE: Fluoroscopic upper GI evaluation. HOSPITAL COURSE: This patient presented with COPD and CHF exacerbation, treated with nebulized bronchodilators, steroids and IV Lasix to which he responded rather well, nearly back to his baseline. Patient is having some pain in the right groin. X-ray was done. No fractures or pus present. The patient probably has had a muscle pull. Today care was discussed in detail with the patient and the . Questions were answered. I also spoke to his daughter Bernadine on the phone: CONSULTATIONS: Dr. Swapnil Nolen from Pulmonary, Dr. Elio Frost from cardiology and Dr. Jose Cowart from orthopedics. EXAM: LUNGS: Fair air entry. CARDIOVASCULAR: First and second sounds normal. The patient is AO x3. DISCHARGE MEDICATIONS: 1. Aspirin 162 mg q.h.s. 2. Mevacor 20 mg q.h.s. 3. Singulair 10 mg q.h.s. 4. Metformin 1000 mg b.i.d. 5. DuoNeb t.i.d. p.r.n. 6. Multivitamin 1 tablet p.o. daily. 7. Prilosec 20 mg b.i.d. 8. Zoloft 100 mg p.o. daily. 9. Ocuvite with lutein 1 tablet p.o. daily. 10.Vitamin B12 1000 mcg p.o. daily. 11.Victoza 2-Garry 0.6 mg subcu daily. 12.Nitrostat 0.4 sublingual q.5 p.r.n. 13.Kenalog 1 application topical t.i.d. p.r.n. 14.Hydralazine 25 mg p.o. b.i.d. 15.Voltaren Gel 4 g topical q.i.d. p.r.n. 16.Insulin Lantus 25 units subcu daily. 17.Melatonin 3 mg q.h.s. p.r.n. 18.Methadone 5 mg p.o. q.8. 19.Lopressor 100 mg p.o. b.i.d. 20.Tylenol. 21.Cordarone 200 mg p.o. daily. 22.Humalog per protocol and 5 units subcu a.c. t.i.d. 23.Milk of magnesia 2400 mg p.o. daily p.r.n. 24.MiraLAX 17 g p.o. b.i.d. and. 25.Crestor one tablet p.o. b.i.d. 26.Coumadin 2 mg and 2.5 as directed. 27.Lasix 80 mg p.o. b.i.d. 28.Potassium 20 mEq p.o. daily. 29.Prednisone taper. FOLLOWUP: Follow up with Dr. Yohannes Gardner on 08/18/2017, Dr. Yosvany Escalona on 08/15/2017, Dr. Swapnil Nolen on 08/22/[address] Jose Cowart 08/21/2017. DISCUSSION AND DISCHARGE PLANNING: More than 35 minutes. MMODL / IJN: [id number] /
[2017-08-12] MEDS ORDERED: PANTOPRAZOLE 40 MG TABLET PO SCH (07:30)
== END 2017-08-11 16:28 | disposition home or self-care (01) | DRG 291 ==
LOC: EC 21:42 → 6SEL 23:53 → UNDODISIN 08-10 16:05
PROVIDERS: ADMIT Hospitalist; ATTEND Hospitalist
DX: I11.0 Hypertensive heart disease with heart failure (principal); J96.01 Acute respiratory failure with hypoxia; J44.1 Chronic obstructive pulmonary disease with (acute) exacerbation; E87.1 Hypo-osmolality and hyponatremia; I69.351 Hemiplegia and hemiparesis following cerebral infarction affecting right dominant side; I50.23 Acute on chronic systolic (congestive) heart failure; I25.10 Atherosclerotic heart disease of native coronary artery without angina pectoris; E11.42 Type 2 diabetes mellitus with diabetic polyneuropathy; E11.65 Type 2 diabetes mellitus with hyperglycemia; E78.5 Hyperlipidemia, unspecified; F32.9 Major depressive disorder, single episode, unspecified; G89.29 Other chronic pain; H40.9 Unspecified glaucoma; I25.2 Old myocardial infarction; I25.5 Ischemic cardiomyopathy; I48.2 Chronic atrial fibrillation; K21.9 Gastro-esophageal reflux disease without esophagitis; K44.9 Diaphragmatic hernia without obstruction or gangrene; M19.011 Primary osteoarthritis, right shoulder; M51.26 Other intervertebral disc displacement, lumbar region; M79.7 Fibromyalgia; N40.0 Benign prostatic hyperplasia without lower urinary tract symptoms; R13.10 Dysphagia, unspecified; R79.1 Abnormal coagulation profile; T45.515A Adverse effect of anticoagulants, initial encounter; Z79.01 Long term (current) use of anticoagulants; Z79.4 Long term (current) use of insulin; Z79.82 Long term (current) use of aspirin; Z79.899 Other long term (current) drug therapy; Z87.891 Personal history of nicotine dependence; Z95.5 Presence of coronary angioplasty implant and graft; Z79.890 Hormone replacement therapy; Z88.2 Allergy status to sulfonamides; Z98.42 Cataract extraction status, left eye; Z98.41 Cataract extraction status, right eye; R77.8 Other specified abnormalities of plasma proteins
CPT/HCPCS: 36415; 71045; 73502; 74210; 80048; 80053; 82550; 82553; 83036; 83735; 83880; 84484; 85025; 85610; 85730; 93005; 94640; 94660; 94760; 96374; 96375; 96376; 99291

== ENCOUNTER 2017-09-04 18:24 | Inpatient (IN) | payer MEDICARE, BC ==
[2017-09-04] MEDS ORDERED: ALBUTEROL NEBULIZED 2.5 MG/3 ML INHALATION STA (19:23)
[2017-09-04] MEDS ORDERED: IPRATROPIUM 0.5 MG/2.5 ML NEBU INHALATION STA (19:23)
--- NOTE | 2017-09-04 19:30 | ED ---
General Adult HPI - General Chief complaint: Shortness of Breath Stated complaint: Esophageal Varices Time Seen by Provider: 09/04/17 18:30 Source: EMS, RN notes reviewed Mode of arrival: EMS Limitations: no limitations - History of Present Illness Initial comments: This is a 77-year-old male with a past medical history significant for congestive heart failure. Patient comes in complaining that his had difficulty breathing worsening over the last 3 days. Patient states she's had edema bilaterally but doesn't appear to be any worse. Patient states he is not coughing. Patient denies any chest pain or palpitations. Patient states the difficulty breathing seems to be intermittent at times. Patient states he used to smoke some 4 years ago but hasn't smoked in many years. Patient denies any abdominal pain patient denies nausea vomiting diarrhea. Patient denies any fever chills. Patient denies headache. Patient denies numbness weakness. Patient denies any lightheadedness dizziness or near syncopal episode - Related Data Home Medications Medication Instructions Recorded Confirmed metFORMIN HCL 1,000 mg PO BID@0800,1600 11/26/13 09/04/17 Omeprazole [PriLOSEC] 20 mg PO BID 10/10/16 09/04/17 Triamcinolone 0.1% Cream [Kenalog] 1 applic TOPICAL BID 07/08/17 09/04/17 INSULIN LISPRO (HumaLOG) [humaLOG] See Protocol SQ ACHS 08/07/17 09/04/17 INSULIN LISPRO (humaLOG) [humaLOG] 5 units SQ PC-TID 08/07/17 09/04/17 Sacubitril/Valsartan [Entresto 24 1 tab PO BID@0800,199908/07/17 09/04/17 mg-26 mg Tablet] Furosemide [Lasix] 80 mg PO BID@0800,1600 09/04/17 09/04/17 L.acidoph,Paracasei, B.lactis 1 cap PO BID 09/04/17 09/04/17 [Probiotic] Metoprolol Tartrate [Lopressor] 100 mg PO BID 09/04/17 09/04/17 Potassium Chloride [Klor-Con 20] 20 meq PO BID 09/04/17 09/04/17 Warfarin [Coumadin] 3 mg PO MOTH 09/04/17 09/04/17 Warfarin [Coumadin] 5 mg PO SUTUWEFRSA 09/04/17 09/04/17 Previous Rx's Medication Instructions Recorded Methadone [Dolophine] 5 mg PO Q8H #9 tab 07/14/17 Allergies Allergy/AdvReac Type Severity Reaction Status Date / Time Sulfa (Sulfonamide Allergy Rash/Hives Verified 09/04/17 20:09 Antibiotics) Review of Systems ROS Statement: Those systems with pertinent positive or pertinent negative responses have been documented in the HPI. ROS Other: All systems not noted in ROS Statement are negative. Past Medical History Past Medical History: Atrial Fibrillation, Asthma, Coronary Artery Disease (CAD) , Heart Failure, COPD, CVA/TIA, Diabetes Mellitus, Eye Disorder, Fibromyalgia, GERD/Reflux, Hyperlipidemia, Hypertension, Musculoskeletal Disorder, Osteoarthritis (OA), Pneumonia, Prostate Disorder Additional Past Medical History / Comment(s): IDDM type II, neuropathy bilateral feet, ischemic cardiomyopathy, Afib with RVR, 2008 CVA with R sided weaknes upper and lower extremities, gait dysfunction, bilateral eyes glaucoma, hiatal hernia and gets food "stuck" at times, chronic low back pain, herniated discs, TURP for BPH, insomnia History of Any Multi-Drug Resistant Organisms: None Reported Past Surgical History: Back Surgery, Heart Catheterization With Stent, Orthopedic Surgery, Prostate Surgery Additional Past Surgical History / Comment(s): PCI with stent to LAD in 2001, unsuccessful cardioversion in 2016, endoscopic sinus surgery/polypectomy, colonoscopy, TURP, bilateral hydrocelectomy, low back surgery. Past Anesthesia/Blood Transfusion Reactions: No Reported Reaction Date of Last Stent Placement:: 2001 Past Psychological History: Anxiety, Depression Smoking Status: Former smoker Past Alcohol Use History: None Reported Past Drug Use History: None Reported - Past Family History Mother Family Medical History: No Reported History Father Family Medical History: Cancer Additional Family Medical History / Comment(s): Father had prostrate cancer. General Exam - General Exam Comments Initial Comments: GENERAL: Patient is well-developed and well-nourished. Patient is nontoxic and well- hydrated and is in mild distress. ENT: Neck is soft and supple. No significant lymphadenopathy is noted. Oropharynx is clear. Moist mucous membranes. Neck has full range of motion without eliciting any pain. EYES: The sclera were anicteric and conjunctiva were pink and moist. Extraocular movements were intact and pupils were equal round and reactive to light. Eyelids were unremarkable. PULMONARY: Patient is wheezing diffusely. CARDIOVASCULAR: There is a regular rate and rhythm without any murmurs gallops or rubs. ABDOMEN: Soft and nontender with normal bowel sounds. No palpable organomegaly was noted. There is no palpable pulsatile mass. SKIN: Skin is clear with no lesions or rashes and otherwise unremarkable. NEUROLOGIC: Patient is alert and oriented x3. Cranial nerves II through XII are grossly intact. Motor and sensory are also intact. Normal speech, volume and content. Symmetrical smile. MUSCULOSKELETAL: Normal extremities with adequate strength and full range of motion. 2+ edema bilaterally LYMPHATICS: No significant lymphadenopathy is noted PSYCHIATRIC: Normal psychiatric evaluation. Limitations: no limitations Course Vital Signs 09/04/17 09/04/17 09/04/17 18:40 18:53 19:29 Temperature 98.8 F Pulse Rate 98 82 Respiratory 18 Rate Blood Pressure 130/75 O2 Sat by Pulse 97 Oximetry 09/04/17 19:55 Temperature Pulse Rate 86 Respiratory Rate Blood Pressure O2 Sat by Pulse Oximetry Medical Decision Making - Medical Decision Making EKG shows atrial fibrillation at 83 bpm QRS is 118 QT interval is 410 QTC is 481. Patient's EKG shows no ST segment elevation or depression or T wave abnormalities are noted. Chest x-ray shows congestive heart today. I gave the patient Lasix nitro paste emergency department. Patient also had a breathing treatment because he was wheezing. I admitted the patient wrote admitting orders I consult cardiology I spoke with Dr. Underwood agreed to accept the admission. I continued Lasix Nitropaste and breathing she was on the floor. - Lab Data Result diagrams: 09/04/17 19:30 09/04/17 19:30 Lab Results 09/04/17 09/04/17 09/04/17 Range/Units 19:30 19:30 19:30 WBC 6.1 (3.8-10.6) k/uL RBC 3.89 L (4.30-5.90) m/uL Hgb 9.9 L (13.0-17.5) gm/dL Hct 32.3 L (39.0-53.0) % MCV 83.1 (80.0-100.0) fL MCH 25.5 (25.0-35.0) pg MCHC 30.7 L (31.0-37.0) g/dL RDW 15.1 (11.5-15.5) % Plt Count 370 (150-450) k/uL Neutrophils % 72 % Lymphocytes % 13 % Monocytes % 11 % Eosinophils % 1 % Basophils % 0 % Neutrophils # 4.4 (1.3-7.7) k/uL Lymphocytes # 0.8 L (1.0-4.8) k/uL Monocytes # 0.7 (0-1.0) k/uL Eosinophils # 0.1 (0-0.7) k/uL Basophils # 0.0 (0-0.2) k/uL Hypochromasia Moderate PT (9.0-12.0) sec INR (<1.2) APTT (22.0-30.0) sec Sodium 127 L (137-145) mmol/L Potassium 4.6 (3.5-5.1) mmol/L Chloride 83 L (98-107) mmol/L Carbon Dioxide 38 H (22-30) mmol/L Anion Gap 6 mmol/L BUN 22 H (9-20) mg/dL Creatinine 0.90 (0.66-1.25) mg/dL Est GFR (CKD-EPI)AfAm >90 (>60 ml/min/1.73 sqM) Est GFR (CKD-EPI)NonAf 83 (>60 ml/min/1.73 sqM) Glucose 165 H (74-99) mg/dL POC Glucose (mg/dL) (75-99) mg/dL POC Glu Chairman Of The Board ID Calcium 8.2 L (8.4-10.2) mg/dL Magnesium 1.5 L (1.6-2.3) mg/dL Total Bilirubin 0.5 (0.2-1.3) mg/dL AST 35 (17-59) U/L ALT 36 (21-72) U/L Alkaline Phosphatase 89 (38-126) U/L Total Creatine Kinase 20 L (55-170) U/L CK-MB (CK-2) 0.9 (0.0-2.4) ng/mL CK-MB (CK-2) Rel Index 4.5 Troponin I 0.027 (0.000-0.034) ng/mL NT-Pro-B Natriuret Pep pg/mL Total Protein 5.6 L (6.3-8.2) g/dL Albumin 2.7 L (3.5-5.0) g/dL 09/04/17 09/04/17 09/04/17 Range/Units 19:30 19:30 20:43 WBC (3.8-10.6) k/uL RBC (4.30-5.90) m/uL Hgb (13.0-17.5) gm/dL Hct (39.0-53.0) % MCV (80.0-100.0) fL MCH (25.0-35.0) pg MCHC (31.0-37.0) g/dL RDW (11.5-15.5) % Plt Count (150-450) k/uL Neutrophils % % Lymphocytes % % Monocytes % % Eosinophils % % Basophils % % Neutrophils # (1.3-7.7) k/uL Lymphocytes # (1.0-4.8) k/uL Monocytes # (0-1.0) k/uL Eosinophils # (0-0.7) k/uL Basophils # (0-0.2) k/uL Hypochromasia PT 19.9 H (9.0-12.0) sec INR 2.2 H (<1.2) APTT 29.9 (22.0-30.0) sec Sodium (137-145) mmol/L Potassium (3.5-5.1) mmol/L Chloride (98-107) mmol/L Carbon Dioxide (22-30) mmol/L Anion Gap mmol/L BUN (9-20) mg/dL Creatinine (0.66-1.25) mg/dL Est GFR (CKD-EPI)AfAm (>60 ml/min/1.73 sqM) Est GFR (CKD-EPI)NonAf (>60 ml/min/1.73 sqM) Glucose (74-99) mg/dL POC Glucose (mg/dL) 261 H (75-99) mg/dL POC Glu Chairman Of The Board ID Carolina Aguilar Calcium (8.4-10.2) mg/dL Magnesium (1.6-2.3) mg/dL Total Bilirubin (0.2-1.3) mg/dL AST (17-59) U/L ALT (21-72) U/L Alkaline Phosphatase (38-126) U/L Total Creatine Kinase (55-170) U/L CK-MB (CK-2) (0.0-2.4) ng/mL CK-MB (CK-2) Rel Index Troponin I (0.000-0.034) ng/mL NT-Pro-B Natriuret Pep 8680 pg/mL Total Protein (6.3-8.2) g/dL Albumin (3.5-5.0) g/dL Critical Care Time Critical Care Time: Yes Total Critical Care Time: 35 Disposition Clinical Impression: Acute pulmonary edema Disposition: ADMITTED IP TO THIS HOSP Referrals: Jhonatan Stone DO [Primary Care Provider] - 1-2 days Time of Disposition: 21:33
[2017-09-04 19:47] LABS: Basophils % (A) 0 %; Eosinophils # (A) 0.1 k/uL (0-0.7); Eosinophils % (A) 1 %; HCT 32.3 % (39.0-53.0); HGB 9.9 gm/dL (13.0-17.5); Hypochromasia Moderate; Lymphocytes # (A) 0.8 k/uL (1.0-4.8); Lymphocytes % (A) 13 %; MCH 25.5 pg (25.0-35.0); MCHC 30.7 g/dL (31.0-37.0); MCV 83.1 fL (80.0-100.0); Mean Platelet Volume 6.9; Monocytes # (A) 0.7 k/uL (0-1.0); Monocytes % (A) 11 %; Neutrophils # (A) 4.4 k/uL (1.3-7.7); Neutrophils % (A) 72 %; Platelet Count 370 k/uL (150-450); RBC 3.89 m/uL (4.30-5.90); RDW 15.1 % (11.5-15.5); WBC 6.1 k/uL (3.8-10.6)
[2017-09-04 19:56] LABS: INR 2.2 (<1.2); Partial Thromboplastin Time 29.9 sec (22.0-30.0); Prothrombin Time 19.9 sec (9.0-12.0)
[2017-09-04 20:04] LABS: ALT 36 U/L (21-72); AST 35 U/L (17-59); Albumin 2.7 g/dL (3.5-5.0); Alkaline Phosphatase 89 U/L (38-126); Anion Gap 6 mmol/L; Blood Urea Nitrogen 22 mg/dL (9-20); Calcium 8.2 mg/dL (8.4-10.2); Carbon Dioxide 38 mmol/L (22-30); Chloride 83 mmol/L (98-107); Glucose 165 mg/dL (74-99); Magnesium 1.5 mg/dL (1.6-2.3); Potassium 4.6 mmol/L (3.5-5.1); Sodium 127 mmol/L (137-145); Total Bilirubin 0.5 mg/dL (0.2-1.3); Total Protein 5.6 g/dL (6.3-8.2)
--- NOTE | 2017-09-04 20:08 | XR ---
EXAMINATION TYPE: XR chest 2V DATE OF EXAM: 09/04/2017 COMPARISON: 08/07/2017 HISTORY: Difficulty breathing TECHNIQUE: Frontal and lateral views of the chest are obtained. FINDINGS: Heart appears enlarged. There is some pulmonary vascular congestion. There is left side ce ntral venous catheter with tip in the superior vena cava. There is blunting of costophrenic angles. T here is fluid in the fissures. IMPRESSION: Congestive heart failure with pleural effusions. This appears the same or slightly impro vahid compared to last exam.
[2017-09-04 20:21] LABS: Creatine Kinase MB 0.9 ng/mL (0.0-2.4); Troponin I 0.027 ng/mL (0.000-0.034)
[2017-09-04 20:45] LABS: Glucose,Whole Blood 261 mg/dL (75-99)
[2017-09-04] MEDS ORDERED: FUROSEMIDE 10 MG/ML 4 ML VIAL IV STA (21:03)
[2017-09-04] MEDS ORDERED: NITROGLYCERIN OINT 1 INCH/GM PACKET TOPICAL STA (21:04)
[2017-09-04] MEDS ORDERED: ASPIRIN 325 MG TAB PO STA (21:34)
[2017-09-04] MEDS ORDERED: WARFARIN 3 MG TAB PO SCH (22:15)
[2017-09-04] MEDS ORDERED: POTASSIUM CHLORIDE ER 20 MEQ TAB.ER PO SCH (22:15)
[2017-09-04 22:56] LABS: Glucose,Whole Blood 182 mg/dL (75-99)
[2017-09-04] MEDS: METHADONE 5 MG TAB PO SCH (23:01)
[2017-09-04] MEDS: METOPROLOL TARTRATE 50 MG TAB PO SCH (23:01)
[2017-09-05] MEDS: IPRATROPIUM-ALBUTEROL 3 ML NEB INHALATION PRN ×4 (03:36→20:03)
[2017-09-05 06:03] LABS: Glucose,Whole Blood 147 mg/dL (75-99)
[2017-09-05] MEDS: PANTOPRAZOLE 40 MG TABLET PO SCH ×2 (06:15→16:47)
[2017-09-05 06:44] LABS: Blood Urea Nitrogen 20 mg/dL (9-20); Calcium 8.3 mg/dL (8.4-10.2); Chloride 84 mmol/L (98-107); Glucose 100 mg/dL (74-99); Potassium 4.9 mmol/L (3.5-5.1); Sodium 132 mmol/L (137-145)
[2017-09-05 06:51] LABS: Anion Gap 9 mmol/L; Carbon Dioxide 39 mmol/L (22-30)
--- NOTE | 2017-09-05 07:43 | P.CRDCN ---
History of Present Illness Consult date: 09/05/17 Requesting physician: Ephraim Underwood Consult reason: congestive heart failure Chief complaint: Shortness of breath History of present illness: This is a 77-year-old gentleman who follows regularly with Dr. Jessi Gardner in the office. 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 He was discharged to [facility], he did develop a subsequent infection from an IV site for which she had a PICC line placed. He presents to the hospital on this occasion with a 3-4 duration of progressively worsening shortness of breath, patient has also developed significant edema since his discharge here. Patient has issues with swallowing for which she has had for quite some time, he still complains of having difficulty in swallowing certain foods. He did have an echocardiogram with Doppler study performed in June of this year which revealed an ejection fraction of 35-40%. Patient did have a non-Q-wave myocardial infarction on his admission in June. Chest x-ray on admission here showed congestive heart failure with pleural effusions. EKG showed atrial fibrillation. White blood cell count 6.1, hemoglobin 9.9, platelet count 370. Sodium 127 on admission, 132 this morning, BUN 20, creatinine 0.8. Magnesium level on admission 1.5, BNP level 8680. Troponin 0.027. At the time of my examination this morning, patient is sitting up in bed, mildly short of breath, he states if he exerts himself minimally he gets quite short of breath. He denies having any chest discomfort. He was initiated on IV Lasix in the emergency room. 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 Past Anesthesia/Blood Transfusion Reactions: No Reported Reaction Date of Last Stent Placement:: 2001 Past Psychological History: Anxiety, Depression Additional Psychological History / Comment(s): Pt currently at [facility] for rehab. He has been getting up with a walker but not recently d/t breathing difficulty. Smoking Status: Former smoker Past Alcohol Use History: None Reported Additional Past Alcohol Use History / Comment(s): Pt started smoking in 1957 and quit in 1989 Past Drug Use History: None Reported - Past Family History Mother Family Medical History: No Reported History Father Family Medical History: Cancer Additional Family Medical History / Comment(s): Father had prostrate cancer. Medications and Allergies Home Medications Medication Instructions Recorded Confirmed Type metFORMIN HCL 1,000 mg PO BID@0800,1600 11/26/13 09/04/17 History Omeprazole [PriLOSEC] 20 mg PO BID 10/10/16 09/04/17 History Triamcinolone 0.1% Cream [Kenalog] 1 applic TOPICAL BID 07/08/17 09/04/17 History Methadone [Dolophine] 5 mg PO Q8H #9 tab 07/14/17 09/04/17 Rx INSULIN LISPRO (HumaLOG) [humaLOG] See Protocol SQ ACHS 08/07/17 09/04/17 History INSULIN LISPRO (humaLOG) [humaLOG] 5 units SQ PC-TID 08/07/17 09/04/17 History Sacubitril/Valsartan [Entresto 24 1 tab PO BID@0800,199908/07/17 09/04/17 History mg-26 mg Tablet] Furosemide [Lasix] 80 mg PO BID@0800,1600 09/04/17 09/04/17 History L.acidoph,Paracasei, B.lactis 1 cap PO BID 09/04/17 09/04/17 History [Probiotic] Metoprolol Tartrate [Lopressor] 100 mg PO BID 09/04/17 09/04/17 History Potassium Chloride [Klor-Con 20] 20 meq PO BID 09/04/17 09/04/17 History Warfarin [Coumadin] 3 mg PO MOTH 09/04/17 09/04/17 History Warfarin [Coumadin] 5 mg PO SUTUWEFRSA 09/04/17 09/04/17 History Allergies Allergy/AdvReac Type Severity Reaction Status Date / Time Sulfa (Sulfonamide Allergy Rash/Hives Verified 09/04/17 20:09 Antibiotics) Physical Exam Vitals: Vital Signs Temp Pulse Pulse Resp BP BP Pulse Ox 09/05/17 04:00 98.6 F 68 18 135/80 100 09/05/17 03:47 74 09/05/17 03:37 80 09/05/17 00:00 83 18 114/67 96 09/04/17 21:57 98.2 F 85 24 131/56 95 09/04/17 21:50 77 140/120 96 09/04/17 19:55 86 09/04/17 19:29 82 09/04/17 18:53 130/75 09/04/17 18:40 98.8 F 98 18 97 Intake and Output 09/04/17 09/05/17 09/05/17 22:59 06:59 14:59 Output Total 950 300 Balance -950 -300 Output: Urine 950 300 Other: Voiding Method Urinal # Voids 3 Weight 111.13 kg 117 kg PHYSICAL EXAMINATION: GENERAL: 77-year-old gentleman in no acute distress at the time of my examination HEENT: Head is atraumatic, normocephalic. Pupils equal, round. Sclera anicteric. Conjunctiva are clear. Mucous membranes of the mouth are moist. Neck is supple. There is no elevated jugular venous pressure.] No carotid bruit is heard. HEART EXAMINATION: Heart S1 and S2 irregularly irregular a systolic murmur is heard CHEST EXAMINATION: Lungs reveal bilateral rales with diminished air entry to the bases ABDOMEN: Soft, nontender. Bowel sounds are heard. No organomegaly noted. EXTREMITIES: 2+ peripheral pulses with 2+ evidence of peripheral edema and no calf tenderness noted. NEUROLOGIC patient is awake, alert and oriented OX-3. . Results 09/04/17 19:30 09/05/17 06:15 Cardiac Enzymes 09/04/17 09/04/17 Range/Units 19:30 19:30 AST 35 (17-59) U/L CK-MB (CK-2) 0.9 (0.0-2.4) ng/mL Troponin I 0.027 (0.000-0.034) ng/mL Coagulation 09/04/17 Range/Units 19:30 PT 19.9 H (9.0-12.0) sec APTT 29.9 (22.0-30.0) sec CBC 09/04/17 Range/Units 19:30 WBC 6.1 (3.8-10.6) k/uL RBC 3.89 L (4.30-5.90) m/uL Hgb 9.9 L (13.0-17.5) gm/dL Hct 32.3 L (39.0-53.0) % Plt Count 370 (150-450) k/uL Comprehensive Metabolic Panel 09/04/17 09/05/17 Range/Units 19:30 06:15 Sodium 127 L 132 L (137-145) mmol/L Potassium 4.6 4.9 (3.5-5.1) mmol/L Chloride 83 L 84 L (98-107) mmol/L Carbon Dioxide 38 H 39 H (22-30) mmol/L BUN 22 H 20 (9-20) mg/dL Creatinine 0.90 0.86 (0.66-1.25) mg/dL Glucose 165 H 100 H (74-99) mg/dL Calcium 8.2 L 8.3 L (8.4-10.2) mg/dL AST 35 (17-59) U/L ALT 36 (21-72) U/L Alkaline Phosphatase 89 (38-126) U/L Total Protein 5.6 L (6.3-8.2) g/dL Albumin 2.7 L (3.5-5.0) g/dL Current Medications Generic Name Dose Route Start Last Admin Trade Name Freq PRN Reason Stop Dose Admin Albuterol/Ipratropium 3 ml 09/04/17 21:39 09/05/17 03:36 Duoneb 0.5 Mg-3 Mg/3 Ml Soln INHALATION 3 ml RT-QID PRN Administration Shortness Of Breath Or Wheezing Aspirin 81 mg 09/05/17 09:00 Aspirin PO DAILY MARCELLE Furosemide 80 mg 09/05/17 08:00 Lasix IV Q8HR [facility] Magnesium Sulfate/Dextrose 1 100 mls @ 100 mls/hr 09/05/17 07:30 gm/ IV Solution IVPB 09/05/17 09:29 Q1H [facility] Insulin Aspart 5 unit 09/05/17 08:30 Novolog SQ PC-TID [facility] Metformin HCl 1,000 mg 09/05/17 08:00 Glucophage PO BID@0800,1600 [facility] Methadone HCl 5 mg 09/04/17 22:30 09/04/17 23:01 Dolophine PO 5 mg Q8H [facility] Administration Metoprolol Tartrate 100 mg 09/04/17 22:15 09/04/17 23:01 Lopressor PO 100 mg BID [facility] Administration Nitroglycerin 1 inch 09/05/17 09:00 Nitro-Bid Oint TOPICAL QID [facility] Pantoprazole Sodium 40 mg 09/05/17 07:30 09/05/17 06:15 Protonix PO 40 mg AC-BID [facility] Administration Potassium Chloride 20 meq 09/04/17 22:15 09/04/17 23:00 K-Dur 20 PO 20 meq BID [facility] Administration Sacubitril/Valsartan 1 each 09/05/17 08:00 Entresto 24 Mg-26 Mg Tablet PO BID@0800,2000 [facility] Triamcinolone Acetonide 1 applic 09/05/17 09:00 Kenalog TOPICAL BID [facility] Warfarin Sodium 3 mg 09/04/17 22:15 09/04/17 23:17 Coumadin PO 3 mg MoTh@1800 [facility] Administration Warfarin Sodium 5 mg 09/05/17 18:00 Coumadin PO SUTUWEFRSA [facility] Intake and Output 09/04/17 09/05/17 09/05/17 22:59 06:59 14:59 Output Total 950 300 Balance -950 -300 Output: Urine 950 300 Other: Voiding Method Urinal # Voids 3 Weight 111.13 kg 117 kg 09/04/17 19:30 09/05/17 06:15 EKG Interpretations (text) EKG shows fibrillation with a controlled ventricular response Assessment and Plan Plan: Assessment and plan #1 systolic congestive heart failure acute on chronic #2 known history of coronary artery disease with prior LAD stenting #3 Chronic persistent atrial fibrillation, on Coumadin for anticoagulation, INR 2.2 #4 Hypertension #5 Hyperlipidemia #6 Ischemic cardiomyopathy #7 history of CVA #8 COPD #9 history of smoking #10 diabetes #11 hypomagnesemia Plan Patient just recently had an echo performed in June of this year which revealed an ejection fraction of 35-40%. We would recommend to continue current dose of IV Lasix. Continue to monitor the patient's intake and output along with daily weights. We will continue with a baby aspirin daily, discontinue Nitropaste, continue Entresto and metoprolol tartrate. We will discontinue the potassium supplementation and start the patient on Aldactone. Further recommendations to follow. DNP note has been reviewed, I agree with a documented findings and plan of care. Patient was seen and examined.
[2017-09-05] MEDS ORDERED: LISINOPRIL 10 MG TAB PO SCH (09:00)
[2017-09-05] MEDS ORDERED: NITROGLYCERIN OINT 1 INCH/GM PACKET TOPICAL SCH (09:00)
[2017-09-05] MEDS: METHADONE 5 MG TAB PO SCH ×3 (09:27→22:23)
[2017-09-05] MEDS: metFORMIN 500 MG TAB PO SCH ×2 (10:07→16:40)
[2017-09-05] MEDS: SACUBITRIL/VALSARTAN 24 MG-26 MG TABLET PO SCH ×2 (10:07→20:47)
[2017-09-05] MEDS: FUROSEMIDE 10 MG/ML 10 ML VIAL IV SCH ×2 (10:07→16:40)
[2017-09-05] MEDS: ASPIRIN 81 MG PO SCH (10:08)
[2017-09-05] MEDS: METOPROLOL TARTRATE 50 MG TAB PO SCH ×2 (10:08→20:47)
[2017-09-05] MEDS: TRIAMCINOLONE 0.1% CREAM 80 GM TUBE TOPICAL SCH ×2 (10:08→20:47)
[2017-09-05] MEDS: MAGNESIUM SULFATE-D5W PMX 1 GM in DEXTROSE/WATER 1 100ML.BAG IVPB SCH ×2 (10:22→11:32)
[2017-09-05] MEDS: INSULIN ASPART 100 UNIT/ML 1 ML 10 ML VIAL SQ SCH ×3 (10:23→17:53)
[2017-09-05 11:20] LABS: Glucose,Whole Blood 193 mg/dL (75-99)
[2017-09-05] MEDS: SPIRONOLACTONE 25 MG TAB PO SCH (12:31)
[2017-09-05 16:43] LABS: Glucose,Whole Blood 157 mg/dL (75-99)
[2017-09-05] MEDS: WARFARIN 5 MG TAB PO SCH (16:47)
[2017-09-05] MEDS ORDERED: ASPIRIN 325 MG TAB PO SCH (21:00)
[2017-09-05] MEDS ORDERED: MAGNESIUM HYDROXIDE 2,400 MG/10 ML CUP PO PRN (21:07)
[2017-09-05] MEDS ORDERED: LACTULOSE 20 GM/30 ML CUP PO PRN (21:07)
[2017-09-05] MEDS ORDERED: ONDANSETRON 4 MG/2 ML VIAL IVP PRN (21:07)
[2017-09-05] MEDS ORDERED: MELATONIN 3 MG TABLET PO PRN (21:07)
[2017-09-05] MEDS ORDERED: NALOXONE 0.4 MG/ML 1 ML VIAL IV PRN (21:07)
[2017-09-05 21:19] LABS: Glucose,Whole Blood 168 mg/dL (75-99)
[2017-09-05] MEDS: FUROSEMIDE 250 MG in SODIUM CHLORIDE 0.9% 225 ML IVP SCH (21:30)
[2017-09-06] MEDS ORDERED: IPRATROPIUM-ALBUTEROL 3 ML NEB ONE (00:50)
--- NOTE | 2017-09-06 01:16 | HP ---
HISTORY AND PHYSICAL DATE OF ADMISSION: 09/04/2017 DATE OF SERVICE: 09/05/2017 PRESENTING COMPLAINT: Short of breath. HISTORY OF PRESENTING COMPLAINT: This is a pleasant 77-year-old patient who is well known to me from prior admissions. Patient's chronic stable medical conditions include diabetes, hyperlipidemia, hypertension, fibromyalgia, right-sided weakness from prior stroke and peripheral neuropathy. Patient recently had an acute myocardial infarction and was also found to have CHF with an EF of 30% to 35% and also known atrial fibrillation. Patient presented with over 24 hours of being increasingly short of breath. No cough. No fever. No chills. Appetite is fair. Patient's chest x-ray was compatible with CHF. Patient has remained in atrial fibrillation. He was started on IV Lasix 80 mg q.8. This was last night. The patient did make some urine. The patient is still quite a bit short of breath. REVIEW OF SYSTEMS: CONSTITUTIONAL: Tired. HEENT: Decreased hearing. RESPIRATORY: As above. CARDIOVASCULAR: As above. GASTROINTESTINAL: As above. GENITOURINARY: None. MUSCULOSKELETAL: Pain in the joints. DERMATOLOGICAL: None. HEMATOLOGICAL: None. LYMPHATICS: None. PSYCHIATRY: None. NEUROLOGICAL: Chronic right-sided weakness. Peripheral neuropathy of the feet. PAST MEDICAL HISTORY: 1. Congestive heart failure; EF 30% to 35%. 2. Atrial fibrillation. 3. Diabetes mellitus, type 2. 4. Hyperlipidemia. 5. Hypertension. 6. Fibromyalgia. 7. Hiatal hernia. 8. Right-sided weakness. 9. Herniated disc in lumbar spine. 10.Peripheral neuropathy. 11.Coronary artery disease. 12.Depression. 13.Gait dysfunction. 14.COPD. 15.Presbyesophagus. PAST SURGICAL HISTORY: 1. Back surgery. 2. Cardiac cath with stent. 3. Prostate surgery. 4. Stent to LAD in 2001. 5. Endoscopic sinus surgery. 6. Polypectomy. 7. Colonoscopy. 8. TURP. 9. Bilateral hydrocolectomy. 10.Low back surgery. PSYCH HISTORY: Anxiety and depression. SOCIAL HISTORY: The patient is currently at [facility] for rehab. The patient started smoking in 1957, stopped in 1989. No alcohol. FAMILY HISTORY: Father had prostate cancer. HOME MEDICATIONS: 1. Metformin 1000 mg b.i.d. 2. Coumadin 5 mg on Monday, Monday, Monday, Monday, Monday and Mondays and 3 mg. 3. Kenalog 0.1% topically b.i.d. 4. Crestor one tablet b.i.d. 5. Potassium 20 mEq p.o. b.i.d. 6. Prilosec 20 mg b.i.d. 7. Lopressor 100 mg p.o. b.i.d. 8. Methadone 5 mg q.8. 9. Probiotic 1 capsule p.o. b.i.d. 10.Humalog 5 units subcutaneously p.c. t.i.d. 11.Lasix 80 mg p.o. b.i.d. ALLERGIES: SULFA. PHYSICAL EXAMINATION: VITAL SIGNS ON PRESENTATION: Temperature 98.8, pulse 98, respiration 20, blood pressure 130/75, pulse ox 97%. GENERAL APPEARANCE: Lying in bed. Short of breath. Awake, anxious-appearing. EYES: Pupils equal.. Conjunctivae pale. HEENT: External appearance of nose and ears normal. Oral cavity normal. NECK: JVD raised. Mass not palpable. RESPIRATORY: Effort increased. LUNGS: Decreased breath sounds. Some crackles. CARDIOVASCULAR: First and second sounds normal. Edema present. ABDOMEN: Soft, nontender. Liver and spleen not palpable. LYMPHATIC: No lymph node palpable in neck or axillae. PSYCHIATRY: Alert and oriented x3. Mood and affect anxious-appearing. NEUROLOGICAL: Pupils equal. Cranial nerves grossly intact. Power on the right side is 4/5. Patient at baseline is a bit dysarthric. INVESTIGATIONS: Labs and investigations are seen and interpreted by me and used in my assessment below. White count 6.1, hemoglobin 9.9, INR 2.2, sodium 127, BUN 22, creatinine 0.90. ProBNP 8680. Chest x-ray film is interpreted by me and used in my assessment: pulmonary edema, cardiomegaly, fluid in the fissure. ASSESSMENT: 1. Acute on chronic congestive heart failure exacerbation from systolic dysfunction, ejection fraction 30% to 35%, with underlying ischemic cardiomyopathy, uncontrolled. 2. Persistent atrial fibrillation on EKG, rate controlled. 3. Diabetes mellitus, type 2, chronically on insulin, causing peripheral neuropathy. 4. Hyperlipidemia. 5. Essential hypertension. 6. Chronic fibromyalgia. 7. Hiatal hernia. 8. 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 9. 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 10.Coronary artery disease with prior history of stent. 11.Depression not otherwise specified. 12.Gait dysfunction; uses a walker. 13.Chronic obstructive pulmonary disease in an ex-smoker. 14.Hyponatremia; suspect hypoosmolar. 15.Presbyesophagus causing chronic dysphagia. 16.Chronic Coumadin monitoring. PLAN: Patient was started on IV Lasix 80 mg q.i.d. in the ER last night. Patient is still quite a bit short of breath. Will switch the patient over to a Lasix drip. Will also put the patient on fluid restriction, since he has been drinking quite a bit of water, to a today. Will do strict I&O. Home medications will be renewed. Accu-Cheks will be followed. Cardiology was consulted. INR will be followed. It may be noted that patient's proBNP is 8680. Patient's family is not present. Patient's sodium will be closely followed. Prognosis is guarded. MMODL / IJN: [id number] /
[2017-09-06 01:17] LABS: Glucose,Whole Blood 168 mg/dL (75-99)
[2017-09-06 01:17] LABS: Glucose,Whole Blood 178 mg/dL (75-99)
[2017-09-06] MEDS ORDERED: MORPHINE SULFATE 2 MG/ML SYRINGE IVP STA (04:54)
[2017-09-06] MEDS: METHADONE 5 MG TAB PO SCH ×3 (05:26→21:27)
[2017-09-06 05:59] LABS: Glucose,Whole Blood 195 mg/dL (75-99)
[2017-09-06 07:22] LABS: Anion Gap 12 mmol/L; Blood Urea Nitrogen 19 mg/dL (9-20); Calcium 8.3 mg/dL (8.4-10.2); Carbon Dioxide 36 mmol/L (22-30); Chloride 84 mmol/L (98-107); Glucose 190 mg/dL (74-99); Sodium 132 mmol/L (137-145)
[2017-09-06] MEDS: IPRATROPIUM-ALBUTEROL 3 ML NEB INHALATION PRN ×3 (07:48→16:20)
[2017-09-06] MEDS: metFORMIN 500 MG TAB PO SCH ×2 (10:27→21:20)
[2017-09-06] MEDS: INSULIN ASPART 100 UNIT/ML 1 ML 10 ML VIAL SQ SCH ×4 (10:27→21:28)
[2017-09-06] MEDS: SACUBITRIL/VALSARTAN 24 MG-26 MG TABLET PO SCH ×2 (10:29→21:20)
[2017-09-06] MEDS: ASPIRIN 81 MG PO SCH (10:29)
[2017-09-06] MEDS: PANTOPRAZOLE 40 MG TABLET PO SCH ×2 (10:29→21:19)
[2017-09-06] MEDS: METOPROLOL TARTRATE 50 MG TAB PO SCH ×2 (10:29→21:20)
[2017-09-06] MEDS: SPIRONOLACTONE 25 MG TAB PO SCH (10:30)
[2017-09-06] MEDS: TRIAMCINOLONE 0.1% CREAM 80 GM TUBE TOPICAL SCH ×2 (10:30→21:20)
[2017-09-06 11:10] LABS: Glucose,Whole Blood 258 mg/dL (75-99)
[2017-09-06] MEDS: LORazepam 0.5 MG TAB PO PRN ×2 (14:11→21:38)
--- NOTE | 2017-09-06 14:25 | P.PN ---
Subjective Progress Note Date: 09/06/17 This is a 77-year-old gentleman who follows regularly with Dr. Jessi Gardner in the office. 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 He was discharged to [facility], he did develop a subsequent infection from an IV site for which she had a PICC line placed. He presents to the hospital on this occasion with a 3-4 duration of progressively worsening shortness of breath, patient has also developed significant edema since his discharge here. Patient has issues with swallowing for which she has had for quite some time, he still complains of having difficulty in swallowing certain foods. He did have an echocardiogram with Doppler study performed in June of this year which revealed an ejection fraction of 35-40%. Patient did have a non-Q-wave myocardial infarction on his admission in June. Chest x-ray on admission here showed congestive heart failure with pleural effusions. EKG showed atrial fibrillation. White blood cell count 6.1, hemoglobin 9.9, platelet count 370. Sodium 127 on admission, 132 this morning, BUN 20, creatinine 0.8. Magnesium level on admission 1.5, BNP level 8680. Troponin 0.027. At the time of my examination this morning, patient is sitting up in bed, mildly short of breath, he states if he exerts himself minimally he gets quite short of breath. He denies having any chest discomfort. He was initiated on IV Lasix in the emergency room. 09/06/2017 Patient was seen and examined this morning, currently on BiPAP. Became quite short of breath through the night last night. Blood pressure this morning 145/ 80 with a heart rate in the 70s. He is at present on a Lasix drip, diuresing well. Sodium 132, potassium 4.0, BUN 19, creatinine 0.8. Objective - Vital Signs Vital signs: Vital Signs Temp 98.7 F 09/06/17 07:45 Pulse 78 09/06/17 12:15 Resp 22 09/06/17 12:15 BP 145/85 09/06/17 12:15 Pulse Ox 100 09/06/17 12:15 Intake & Output 09/05/17 09/06/17 09/06/17 18:59 06:59 18:59 Intake Total 702 Output Total 3325 1000 Balance -2623 -1000 Weight 117 kg 120.5 kg Intake: Oral 702 Output: Urine 3325 1000 Other: Voiding Method Urinal Urinal - Exam PHYSICAL EXAMINATION: GENERAL: 77-year-old gentleman in no acute distress at the time of my examination HEENT: Head is atraumatic, normocephalic. Pupils equal, round. Sclera anicteric. Conjunctiva are clear. Mucous membranes of the mouth are moist. Neck is supple. There is no elevated jugular venous pressure.] No carotid bruit is heard. HEART EXAMINATION: Heart S1 and S2 irregularly irregular a systolic murmur is heard CHEST EXAMINATION: Lungs reveal bilateral rales with diminished air entry to the bases ABDOMEN: Soft, nontender. Bowel sounds are heard. No organomegaly noted. EXTREMITIES: 2+ peripheral pulses with 2+ evidence of peripheral edema and no calf tenderness noted. NEUROLOGIC patient is sleeping - Labs CBC & Chem 7: 09/04/17 19:30 09/06/17 06:13 Labs: Abnormal Lab Results - Last 24 Hours (Table) 09/05/17 09/05/17 09/06/17 Range/Units 16:30 21:18 00:19 Sodium (137-145) mmol/L Chloride (98-107) mmol/L Carbon Dioxide (22-30) mmol/L Glucose (74-99) mg/dL POC Glucose (mg/dL) 157 H 168 H 178 H (75-99) mg/dL Calcium (8.4-10.2) mg/dL 09/06/17 09/06/17 09/06/17 Range/Units 01:11 05:58 06:13 Sodium 132 L (137-145) mmol/L Chloride 84 L (98-107) mmol/L Carbon Dioxide 36 H (22-30) mmol/L Glucose 190 H (74-99) mg/dL POC Glucose (mg/dL) 168 H 195 H (75-99) mg/dL Calcium 8.3 L (8.4-10.2) mg/dL 09/06/17 Range/Units 11:09 Sodium (137-145) mmol/L Chloride (98-107) mmol/L Carbon Dioxide (22-30) mmol/L Glucose (74-99) mg/dL POC Glucose (mg/dL) 258 H (75-99) mg/dL Calcium (8.4-10.2) mg/dL Assessment and Plan Plan: Assessment and plan #1 systolic congestive heart failure acute on chronic #2 known history of coronary artery disease with prior LAD stenting #3 Chronic persistent atrial fibrillation, on Coumadin for anticoagulation, INR 2.2 #4 Hypertension #5 Hyperlipidemia #6 Ischemic cardiomyopathy #7 history of CVA #8 COPD #9 history of smoking #10 diabetes #11 hypomagnesemia Plan Patient just recently had an echo performed in June of this year which revealed an ejection fraction of 35-40%. We would recommend to continue current dose of IV Lasix drip. Continue to monitor the patient's intake and output along with daily weights. We will continue with a baby aspirin daily, discontinue Nitropaste, continue Entresto and metoprolol tartrate. We will discontinue the potassium supplementation and start the patient on Aldactone. Further recommendations to follow. DNP note has been reviewed, I agree with a documented findings and plan of care. Patient was seen and examined.
[2017-09-06 16:32] LABS: Glucose,Whole Blood 226 mg/dL (75-99)
[2017-09-06] MEDS: FUROSEMIDE 250 MG in SODIUM CHLORIDE 0.9% 225 ML IVP SCH (21:05)
[2017-09-06 21:09] LABS: Glucose,Whole Blood 300 mg/dL (75-99)
[2017-09-06] MEDS: WARFARIN 5 MG TAB PO SCH (21:19)
--- NOTE | 2017-09-06 22:35 | PN ---
PROGRESS NOTE DATE OF SERVICE: 09/06/2017. PRESENTING COMPLAINT: Short of breath. INTERVAL HISTORY: Patient admitted with multiple medical problems, admitted with CHF exacerbation. I started the patient on Lasix drip last night. This morning, patient is having some urinary retention. Irwin catheter was placed. The patient also became very anxious. BiPAP was placed. The patient has been making good urine output, though somewhat still very anxious. REVIEW OF SYSTEMS: Done for constitutional, cardiovascular, GI, pulmonary; relevant findings as above. CURRENT MEDICATIONS: Reviewed. 1. Lasix drip and. 2. Aldactone 25 mg a day. AL EXAMINATION: Temperature 97, pulse 92, respirations 27, blood pressure 130/90, pulse ox 96% on room air. GENERAL APPEARANCE: Lying in bed, anxious-appearing. Short of breath. EYES: Pupils equal. Conjunctivae normal. HEENT: External nose and ears normal. Oral cavity normal. NECK: JVD raised. Mass not palpable. RESPIRATORY: Effort increased. LUNGS: Diminished breath sounds. Basal crackles. CARDIOVASCULAR: First and second sounds normal. Edema still present. ABDOMEN: Soft, nontender. Liver and spleen not palpable. PSYCHIATRY: Alert and oriented x3. Mood and affect anxious-appearing. NEUROLOGICAL: Right-sided weakness. Power 4/5. Patient at baseline is dysarthric. INVESTIGATIONS: Potassium 4, BUN 19, creatinine 0.8. Chest x-ray reviewed shows significant pulmonary edema. ASSESSMENT: 1. Acute on chronic congestive heart failure exacerbation, systolic dysfunction, ejection fraction 30%-35% with underlying ischemic cardiomyopathy, remains uncontrolled. 2. Persistent atrial fibrillation on EKG. 3. Diabetes mellitus type 2, chronically on insulin causing peripheral neuropathy. 4. Hyperlipidemia. 5. Essential hypertension. 6. Chronic fibromyalgia. 7. Hiatal hernia. 8. Right-sided paresis from a prior stroke. 9. 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 10.Coronary artery with prior history of stent. 11.Depression, not otherwise specified. 12.Gait dysfunction, uses a walker at baseline. 13.Chronic obstructive pulmonary disease in an ex-smoker. 14.Hyponatremia, suspect hypoosmolar. 15.Presbyesophagus causing chronic dysphagia. 16.Chronic Coumadin monitoring. PLAN: The patient is still rather short of breath, though somewhat better than yesterday. Did talk to the , did reassure the patient. Strict I's and O's are to continue. Patient close to 4 L in negative fluid balance. Accu-Cheks will be followed. Will follow. MMODL / IJN: [id number] /
[2017-09-07 06:38] LABS: INR 4.5 (<1.2); Prothrombin Time 40.9 sec (9.0-12.0)
[2017-09-07 06:45] LABS: Glucose,Whole Blood 186 mg/dL (75-99)
[2017-09-07] MEDS: INSULIN ASPART 100 UNIT/ML 1 ML 10 ML VIAL SQ SCH ×6 (06:54→17:54)
[2017-09-07] MEDS: METHADONE 5 MG TAB PO SCH ×3 (06:54→22:25)
[2017-09-07] MEDS: PANTOPRAZOLE 40 MG TABLET PO SCH ×2 (06:55→16:12)
[2017-09-07] MEDS: SACUBITRIL/VALSARTAN 24 MG-26 MG TABLET PO SCH ×2 (07:51→20:01)
[2017-09-07] MEDS: LORazepam 0.5 MG TAB PO PRN ×2 (07:51→20:05)
[2017-09-07] MEDS: IPRATROPIUM-ALBUTEROL 3 ML NEB INHALATION PRN ×4 (07:51→19:21)
[2017-09-07] MEDS: metFORMIN 500 MG TAB PO SCH ×2 (07:51→16:12)
[2017-09-07] MEDS: METOPROLOL TARTRATE 50 MG TAB PO SCH ×2 (07:52→20:01)
[2017-09-07] MEDS: SPIRONOLACTONE 25 MG TAB PO SCH (07:52)
[2017-09-07] MEDS: ASPIRIN 81 MG PO SCH (07:52)
[2017-09-07] MEDS: TRIAMCINOLONE 0.1% CREAM 80 GM TUBE TOPICAL SCH ×2 (07:52→22:25)
[2017-09-07 11:07] LABS: Anion Gap 9 mmol/L; Blood Urea Nitrogen 22 mg/dL (9-20); Calcium 8.3 mg/dL (8.4-10.2); Carbon Dioxide 34 mmol/L (22-30); Chloride 89 mmol/L (98-107); Glucose 177 mg/dL (74-99); Potassium 3.9 mmol/L (3.5-5.1); Sodium 132 mmol/L (137-145)
[2017-09-07 11:55] LABS: Glucose,Whole Blood 177 mg/dL (75-99)
--- NOTE | 2017-09-07 12:12 | P.PN ---
Subjective Progress Note Date: 09/07/17 This is a 77-year-old gentleman who follows regularly with Dr. Jessi Gardner in the office. 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 He was discharged to [facility], he did develop a subsequent infection from an IV site for which she had a PICC line placed. He presents to the hospital on this occasion with a 3-4 duration of progressively worsening shortness of breath, patient has also developed significant edema since his discharge here. Patient has issues with swallowing for which she has had for quite some time, he still complains of having difficulty in swallowing certain foods. He did have an echocardiogram with Doppler study performed in June of this year which revealed an ejection fraction of 35-40%. Patient did have a non-Q-wave myocardial infarction on his admission in June. Chest x-ray on admission here showed congestive heart failure with pleural effusions. EKG showed atrial fibrillation. White blood cell count 6.1, hemoglobin 9.9, platelet count 370. Sodium 127 on admission, 132 this morning, BUN 20, creatinine 0.8. Magnesium level on admission 1.5, BNP level 8680. Troponin 0.027. At the time of my examination this morning, patient is sitting up in bed, mildly short of breath, he states if he exerts himself minimally he gets quite short of breath. He denies having any chest discomfort. He was initiated on IV Lasix in the emergency room. 09/06/2017 Patient was seen and examined this morning, currently on BiPAP. Became quite short of breath through the night last night. Blood pressure this morning 145/ 80 with a heart rate in the 70s. He is at present on a Lasix drip, diuresing well. Sodium 132, potassium 4.0, BUN 19, creatinine 0.8. 09/07/2017 Patient was seen and examined this morning, much more alert and oriented today. Breathing is improving significantly and he continues to diurese well on the Lasix drip. Sodium 132, potassium 3.9, BUN 22, creatinine 0.8, magnesium 1.7. Pro time 40.9 with an INR 4.5. Blood pressure 134/80 with a heart rate in the 80s, 95% on 5 L nasal cannula. Objective - Vital Signs Vital signs: Vital Signs Temp 97.8 F 09/07/17 07:40 Pulse 88 09/07/17 11:31 Resp 20 09/07/17 07:40 BP 135/88 09/07/17 07:40 Pulse Ox 95 09/07/17 07:40 Intake & Output 09/06/17 09/07/17 09/07/17 18:59 06:59 18:59 Intake Total 275 Output Total 750 1150 600 Balance -750 -725 -600 Weight 120.5 kg Intake: IV 40 Furosemide 250 mg In 40 Sodium Chloride 0.9% 225 ml @ 10 MG/HR 10 mls/hr IVP .Q24H [facility] Rx#: [id number] Intake, IV Titration 235 Amount Furosemide 250 mg In 235 Sodium Chloride 0.9% 225 ml @ 10 MG/HR 10 mls/hr IVP .Q24H [facility] Rx#: [id number] Output: Urine 750 1150 600 Other: Voiding Method Indwelling Catheter Indwelling Catheter Indwelling Catheter - Exam PHYSICAL EXAMINATION: GENERAL: 77-year-old gentleman in no acute distress at the time of my examination HEENT: Head is atraumatic, normocephalic. Pupils equal, round. Sclera anicteric. Conjunctiva are clear. Mucous membranes of the mouth are moist. Neck is supple. There is no elevated jugular venous pressure.] No carotid bruit is heard. HEART EXAMINATION: Heart S1 and S2 irregularly irregular a systolic murmur is heard CHEST EXAMINATION: Lungs reveal bilateral rales with improvement in air entry to the bases ABDOMEN: Soft, nontender. Bowel sounds are heard. No organomegaly noted. EXTREMITIES: 2+ peripheral pulses with 1+ evidence of peripheral edema and no calf tenderness noted. NEUROLOGIC patient is sleeping - Labs CBC & Chem 7: 09/04/17 19:30 09/07/17 05:59 Labs: Abnormal Lab Results - Last 24 Hours (Table) 09/06/17 09/06/17 09/07/17 Range/Units 16:08 21:08 05:59 PT 40.9 H (9.0-12.0) sec INR 4.5 H (<1.2) Sodium (137-145) mmol/L Chloride (98-107) mmol/L Carbon Dioxide (22-30) mmol/L BUN (9-20) mg/dL Glucose (74-99) mg/dL POC Glucose (mg/dL) 226 H 300 H (75-99) mg/dL Calcium (8.4-10.2) mg/dL 09/07/17 09/07/17 09/07/17 Range/Units 05:59 06:17 11:35 PT (9.0-12.0) sec INR (<1.2) Sodium 132 L (137-145) mmol/L Chloride 89 L (98-107) mmol/L Carbon Dioxide 34 H (22-30) mmol/L BUN 22 H (9-20) mg/dL Glucose 177 H (74-99) mg/dL POC Glucose (mg/dL) 186 H 177 H (75-99) mg/dL Calcium 8.3 L (8.4-10.2) mg/dL Assessment and Plan Plan: Assessment and plan #1 systolic congestive heart failure acute on chronic #2 known history of coronary artery disease with prior LAD stenting #3 Chronic persistent atrial fibrillation, on Coumadin for anticoagulation, INR 2.2 #4 Hypertension #5 Hyperlipidemia #6 Ischemic cardiomyopathy #7 history of CVA #8 COPD #9 history of smoking #10 diabetes #11 hypomagnesemia Plan Patient just recently had an echo performed in June of this year which revealed an ejection fraction of 35-40%. We would recommend to continue current dose of IV Lasix drip. Continue to monitor the patient's intake and output along with daily weights. We will continue with a baby aspirin daily, continue Entresto and metoprolol tartrate. Further recommendations to follow. DNP note has been reviewed, I agree with a documented findings and plan of care. Patient was seen and examined.
[2017-09-07 16:38] LABS: Glucose,Whole Blood 194 mg/dL (75-99)
--- NOTE | 2017-09-07 16:52 | XR ---
EXAMINATION TYPE: XR chest 1V portable DATE OF EXAM: 09/06/2017 COMPARISON: Prior chest 09/04/2017 HISTORY: Respiratory distress TECHNIQUE: Single frontal view of the chest is obtained. FINDINGS: Exam submitted for interpretation 09/07/2012 The heart is enlarged. Interstitium and central vascularity are prominent. No pneumothorax. Bibasilar effusions suspected. Left-sided PICC line is stable. IMPRESSION: Correlate for congestive heart failure, volume status may be worsening. Bilateral pleura l effusions.
--- NOTE | 2017-09-07 20:09 | PN ---
PROGRESS NOTE DATE OF SERVICE: 09/07/2017 PRESENTING COMPLAINT: Short of breath. INTERVAL HISTORY: Patient presented with CHF exacerbation. Patient has been on Lasix drip. Anxiety is somewhat better this morning. I did try to reassure the patient. I am reluctant to increase any more medications, given his pulmonary status. Patient did get down to about 3 L later this afternoon. Edema is going down. Patient has been about close to 6 L negative fluid balance. Patient did tolerate some diet this morning. REVIEW OF SYSTEMS: Done for constitutional, cardiovascular, GI, pulmonary; relevant findings as above. CURRENT MEDICATIONS: Current medications include: 1. Lasix drip. 2. Lopressor. 3. Aldactone. 4. Entresto. PHYSICAL EXAMINATION: Temperature 97.8, pulse 81, respiration 20, blood pressure 135/88, pulse ox 95% on 5 L. GENERAL APPEARANCE: Lying in bed, awake, somewhat anxious. EYES: Pupils equal. Conjunctivae normal. HEENT: External appearance of nose and ears normal. Oral cavity normal. NECK: JVD raised. Mass not palpable. RESPIRATORY: Effort increased. LUNGS: Decreased breath sounds. Improved crackles. CARDIOVASCULAR: First and second sounds normal. Decreased edema. ABDOMEN: Soft, nontender. Liver and spleen not palpable. PSYCHIATRY: Alert and oriented x3. Mood and affect less anxious. NEUROLOGICAL: Power on the right side is 4/5. Patient at baseline is dysarthric. INVESTIGATIONS: INR 4.5, potassium 3.9, BUN 22, creatinine 0.85. ProBNP is 15,300. ASSESSMENT: 1. Acute on chronic congestive heart failure exacerbation from systolic dysfunction, ejection fraction around 40% with underlying ischemic cardiomyopathy; remains uncontrolled, though patient is diuresing well, close to 6 L now. 2. Persistent atrial fibrillation. 3. Diabetes mellitus, type 2, chronically on insulin, causing peripheral neuropathy. 4. Hyperlipidemia. 5. Essential hypertension. 6. Chronic fibromyalgia. 7. Hiatal hernia. 8. 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 9. 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 10.Coronary artery disease with prior history of stent. 11.Depression not otherwise specified. 12.Gait dysfunction; uses a walker at baseline. 13.Chronic obstructive pulmonary disease in an ex-smoker. 14.Hyponatremia; suspect hypoosmolar. 15.Presbyesophagus causing chronic dysphagia. 16.Coumadin monitoring. PLAN: Continue patient on Lasix drip. Continue to follow I&O. Hopefully patient will be switched to p.o. Lasix in the next 24 hours. Discussed the care with his at the bedside. Questions were answered. DIVINA / CIRON: [id number] /
[2017-09-07 20:50] LABS: Glucose,Whole Blood 190 mg/dL (75-99)
[2017-09-07] MEDS: FUROSEMIDE 250 MG in SODIUM CHLORIDE 0.9% 225 ML IVP SCH (22:15)
[2017-09-08 05:49] LABS: Glucose,Whole Blood 233 mg/dL (75-99)
[2017-09-08] MEDS: INSULIN ASPART 100 UNIT/ML 1 ML 10 ML VIAL SQ SCH ×8 (06:29→23:11)
[2017-09-08] MEDS: METHADONE 5 MG TAB PO SCH ×3 (06:29→20:06)
[2017-09-08] MEDS: PANTOPRAZOLE 40 MG TABLET PO SCH ×2 (06:30→17:51)
[2017-09-08 07:25] LABS: INR 4.2 (<1.2); Prothrombin Time 37.6 sec (9.0-12.0)
[2017-09-08 07:27] LABS: Blood Urea Nitrogen 20 mg/dL (9-20); Calcium 7.9 mg/dL (8.4-10.2); Chloride 88 mmol/L (98-107); Glucose 215 mg/dL (74-99); Magnesium 1.6 mg/dL (1.6-2.3); Potassium 3.6 mmol/L (3.5-5.1); Sodium 134 mmol/L (137-145)
[2017-09-08 07:33] LABS: Anion Gap 5 mmol/L
[2017-09-08 07:41] LABS: Carbon Dioxide 41 mmol/L (22-30)
[2017-09-08] MEDS: IPRATROPIUM-ALBUTEROL 3 ML NEB INHALATION PRN ×4 (07:43→20:54)
[2017-09-08] MEDS: SACUBITRIL/VALSARTAN 24 MG-26 MG TABLET PO SCH (08:32)
[2017-09-08] MEDS: metFORMIN 500 MG TAB PO SCH ×2 (08:32→17:52)
[2017-09-08] MEDS: ASPIRIN 81 MG PO SCH (08:32)
[2017-09-08] MEDS: TRIAMCINOLONE 0.1% CREAM 80 GM TUBE TOPICAL SCH ×2 (08:33→20:08)
[2017-09-08] MEDS: SPIRONOLACTONE 25 MG TAB PO SCH (08:33)
[2017-09-08] MEDS: METOPROLOL TARTRATE 50 MG TAB PO SCH ×2 (08:33→20:08)
--- NOTE | 2017-09-08 09:35 | CDI ---
Last Revision, January 2017 Documentation Clarification Form Date: 09/08/17 From: Sherrie Myers Admit Date: 09/04/2017 9:34:00 PM Patient Name: Travis Flores Visit Number: [id number] ATTENTION: The Clinical Documentation Specialists (CDI) and [facility] Coding Staff appreciate your assistance in clarifying documentation. Please respond to the clarification below the line at the bottom and electronically sign. The CDI & [facility] Coding staff will review the response and follow-up if needed. Please note: Queries are made part of the Legal Health Record. If you have any questions, please contact the author of this message via ITS. Dr. Ephraim Underwood, Documentation of COPD is located in the 09/04 - 09/07. Patient presented with acute on chronic CHF exacerbation History/Risk Factors : CHF, a fib, DM, HTN, hyperlipidemia ,HTN, fibromyalgia, hiatal hernia, right sided weakness, herniated disc in spine, peripheral neuropathy, CAD, depression, gait dysfunction, COPD, presbyesophagus, past smoker Clinical Indicators: Vital Signs/Pulse Oximetry: T 98.8, P 98, R 18, 130/75, 97% 2L Lung and Respiratory Assessment: decreased breath sounds with crackles charted in H&P Lungs reveal bilateral rales with diminished air entry to the bases PN 09/06 Treatment: Nebulizers: Duoneb, Atrovent O2 @ 5 liters No Pulmonary consult In your professional opinion, can you please clarify if the above findings and treatment signify any of the following? Acute Exacerbation of Chronic Obstructive Pulmonary Disease (COPD) Acute on Chronic Obstructive Asthma Acute on chronic bronchitis Emphysema Other condition, please specify Unable to determine Please continue to document in your progress notes, under the line below and/or in the discharge summary in order to capture severity of illness and risk of mortality. Include clinical findings that support your diagnosis. NO acute exacerbation of COPD MTDD
[2017-09-08 12:12] LABS: Glucose,Whole Blood 132 mg/dL (75-99)
[2017-09-08] MEDS: LORazepam 0.5 MG TAB PO PRN (12:34)
[2017-09-08] MEDS: acetaZOLAMIDE 250 MG TAB PO SCH ×2 (12:34→20:07)
--- NOTE | 2017-09-08 13:21 | P.PN ---
Subjective Progress Note Date: 09/08/17 This is a 77-year-old gentleman who follows regularly with Dr. Jessi Gardner in the office. 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 He was discharged to [facility], he did develop a subsequent infection from an IV site for which she had a PICC line placed. He presents to the hospital on this occasion with a 3-4 day duration of progressively worsening shortness of breath, patient has also developed significant edema and orthopnea since his discharge here. Patient has issues with swallowing for which he has had for quite some time, he still complains of having difficulty in swallowing certain foods. He did have an echocardiogram with Doppler study performed in June of this year which revealed an ejection fraction of 35-40%. Patient did have a Non-STEMI on his admission in June. Chest x-ray on admission here showed congestive heart failure with pleural effusions. EKG showed atrial fibrillation. BNP level 8680. Troponin 0.027. he remains on a Lasix drip at 10 g an hour. He also remains on Entresto 24/ 26mg which was started in June. on examination this morning, patient verbalizes feeling somewhat better. He continues to have lower extremity edema and orthopnea. He has not been up out of bed much. Objective - Vital Signs Vital signs: Vital Signs Temp 98.4 F 09/08/17 08:05 Pulse 88 09/08/17 11:45 Resp 18 09/08/17 08:05 BP 150/87 09/08/17 08:05 Pulse Ox 95 09/08/17 08:05 Intake & Output 09/07/17 09/08/17 09/08/17 18:59 06:59 18:59 Intake Total 180 360 380 Output Total 1700 1950 Balance -1520 -1590 380 Weight 119.5 kg Intake: IV 110 Furosemide 250 mg In 110 Sodium Chloride 0.9% 225 ml @ 10 MG/HR 10 mls/hr IVP .Q24H [facility] Rx#: [id number] Intake, IV Titration 250 Amount Furosemide 250 mg In 250 Sodium Chloride 0.9% 225 ml @ 10 MG/HR 10 mls/hr IVP .Q24H [facility] Rx#: [id number] Oral 180 380 Output: Urine 1700 1950 Other: Voiding Method Indwelling Catheter Indwelling Catheter Indwelling Catheter - Exam PHYSICAL EXAMINATION: HEENT: [Head is atraumatic, normocephalic. Pupils equal, round. Neck is supple. There is no elevated jugular venous pressure.] HEART EXAMINATION: [Heart sounds regular, S1 and S2 normal. No murmur or gallop heard.] CHEST EXAMINATION:[ Lungs reveal crackles bilateral bases. No chest wall tenderness is noted on palpation or with deep breathing.] ABDOMEN: [ Soft, nontender. Bowel sounds are heard. No organomegaly noted]. EXTREMITIES:[ 2+ peripheral pulses with evidence of 1+ peripheral edema and no calf tenderness noted]. NEUROLOGIC [patient is awake, alert and oriented x3.] . - Labs CBC & Chem 7: 09/04/17 19:30 09/08/17 06:53 Labs: Abnormal Lab Results - Last 24 Hours (Table) 09/07/17 09/07/17 09/08/17 Range/Units 16:36 20:49 05:48 PT (9.0-12.0) sec INR (<1.2) Sodium (137-145) mmol/L Chloride (98-107) mmol/L Carbon Dioxide (22-30) mmol/L Glucose (74-99) mg/dL POC Glucose (mg/dL) 194 H 190 H 233 H (75-99) mg/dL Calcium (8.4-10.2) mg/dL 09/08/17 09/08/17 09/08/17 Range/Units 06:53 06:53 12:04 PT 37.6 H (9.0-12.0) sec INR 4.2 H (<1.2) Sodium 134 L (137-145) mmol/L Chloride 88 L (98-107) mmol/L Carbon Dioxide 41 H* (22-30) mmol/L Glucose 215 H (74-99) mg/dL POC Glucose (mg/dL) 132 H (75-99) mg/dL Calcium 7.9 L (8.4-10.2) mg/dL Assessment and Plan Assessment: #1 systolic congestive heart failure acute on chronic #2 known history of coronary artery disease with prior LAD stenting #3 Chronic persistent atrial fibrillation, on Coumadin for anticoagulation, INR 2.2 #4 Hypertension #5 Hyperlipidemia #6 Ischemic cardiomyopathy #7 history of CVA #8 COPD #9 history of smoking #10 diabetes #11 hypomagnesemia Plan: from cardiology's perspective, we will continue IV Lasix drip. We will increase his dose of Entresto to 49/51mg. we will monitor daily weights, intake and output as well as renal function and electrolytes. Continue to follow the patient provide further recommendations accordingly. OUTSIDE COLLECTOR note has been reviewed, I agree with a documented findings and plan of care. Patient was seen and examined.
[2017-09-08 17:03] LABS: Glucose,Whole Blood 182 mg/dL (75-99)
[2017-09-08] MEDS: SACUBITRIL/VALSARTAN 49 MG-51 MG TABLET PO SCH (20:09)
[2017-09-08 20:45] LABS: Glucose,Whole Blood 248 mg/dL (75-99)
--- NOTE | 2017-09-08 20:48 | PN ---
PROGRESS NOTE DATE OF SERVICE: 09/08/2017 PRESENTING COMPLAINT: Short of breath. INTERVAL HISTORY: Patient presented with CHF exacerbation, remains on Lasix drip. The patient has been close to 6 L of negative fluid balance. Making good urine. Anxiety is better. The patient has been off the BiPAP. Did have a bowel movement. Oral intake is a bit improved. Edema is going down. REVIEW OF SYSTEMS: Done for constitutional, cardiovascular, GI, pulmonary; relevant findings as above. CURRENT MEDICATIONS: Reviewed that include Lasix drip. EXAMINATION: Temperature 98.2, pulse 84, respirations 20, blood pressure 150/87, pulse ox 95% on 5L. GENERAL APPEARANCE: Sitting at the edge of bed, short of breath. EYES: Pupils equal. Conjunctivae normal. HEENT: External nose and ears normal. Oral cavity normal. NECK: JVD not raised. Mass not palpable. RESPIRATORY: Effort increased. LUNGS: Decreased breath sounds. CARDIOVASCULAR: First and second sounds normal. Decreased edema. ABDOMEN: Soft, nontender. Liver and spleen not palpable. PSYCHIATRY: Alert and oriented x3. Mood and affect less anxious. INVESTIGATIONS: INR 4.2, bicarb 41, BUN 20, creatinine 0.83. Accu-Cheks are noted. ASSESSMENT: 1. Acute on chronic congestive heart failure exacerbation from systolic dysfunction, ejection fraction around 40% from underlying ischemic cardiomyopathy, slow to respond. 2. Persistent atrial fibrillation. 3. Diabetes mellitus type 2, chronically on insulin causing peripheral neuropathy. 4. Hyperlipidemia. 5. Essential hypertension. 6. Chronic fibromyalgia. 7. Hiatal hernia. 8. 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 9. 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 10.Coronary artery disease with prior history of stent. 11.Depression, not otherwise specified. 12.Gait dysfunction, at baseline uses a walker. 13.Chronic obstructive pulmonary disease in an ex-smoker. 14.Hyponatremia, suspect hypoosmolar. 15.Presbyesophagus causing chronic dysphagia. 16.Coumadin monitoring. 17.Contraction alkalosis. PLAN: We will keep the patient on Lasix drip hopefully for another 24 hours. Today family is not present. I did try to reach the daughter at home last night, had a voicemail. Follow electrolytes closely. For the metabolic alkalosis, will add Diamox 250 mg twice a day. MMODL / IJN: [id number] /
[2017-09-09] MEDS: FUROSEMIDE 250 MG in SODIUM CHLORIDE 0.9% 225 ML IVP SCH ×2 (02:55→06:09)
[2017-09-09 06:03] LABS: Glucose,Whole Blood 234 mg/dL (75-99)
[2017-09-09 06:32] LABS: INR 2.7 (<1.2); Prothrombin Time 24.7 sec (9.0-12.0)
[2017-09-09] MEDS: INSULIN ASPART 100 UNIT/ML 1 ML 10 ML VIAL SQ SCH ×6 (06:39→22:40)
[2017-09-09] MEDS: PANTOPRAZOLE 40 MG TABLET PO SCH ×2 (06:39→16:48)
[2017-09-09] MEDS: METHADONE 5 MG TAB PO SCH ×3 (06:40→22:40)
[2017-09-09] MEDS: metFORMIN 500 MG TAB PO SCH ×2 (08:52→16:46)
[2017-09-09] MEDS: ASPIRIN 81 MG PO SCH (08:52)
[2017-09-09] MEDS: METOPROLOL TARTRATE 50 MG TAB PO SCH ×2 (08:52→22:39)
[2017-09-09] MEDS: acetaZOLAMIDE 250 MG TAB PO SCH ×2 (08:53→22:39)
[2017-09-09] MEDS: SACUBITRIL/VALSARTAN 49 MG-51 MG TABLET PO SCH ×2 (08:53→22:39)
[2017-09-09] MEDS: SPIRONOLACTONE 25 MG TAB PO SCH (08:54)
[2017-09-09] MEDS: TRIAMCINOLONE 0.1% CREAM 80 GM TUBE TOPICAL SCH ×2 (08:55→22:39)
[2017-09-09] MEDS: IPRATROPIUM-ALBUTEROL 3 ML NEB INHALATION PRN (09:01)
[2017-09-09 09:08] LABS: Anion Gap 9 mmol/L; Blood Urea Nitrogen 16 mg/dL (9-20); Calcium 8.1 mg/dL (8.4-10.2); Carbon Dioxide 38 mmol/L (22-30); Chloride 88 mmol/L (98-107); Glucose 235 mg/dL (74-99); Potassium 3.2 mmol/L (3.5-5.1); Sodium 135 mmol/L (137-145)
[2017-09-09] MEDS ORDERED: Potassium Replacement Protocol 1 EACH MISC MISCELLANE PRN (10:03)
[2017-09-09 11:44] LABS: Glucose,Whole Blood 333 mg/dL (75-99)
--- NOTE | 2017-09-09 12:14 | P.PN ---
Subjective Progress Note Date: 09/09/17 This is a 77-year-old gentleman who follows regularly with Dr. Jessi Gardner in the office. 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 He was discharged to [facility], he did develop a subsequent infection from an IV site for which she had a PICC line placed. He presents to the hospital on this occasion with a 3-4 day duration of progressively worsening shortness of breath, patient has also developed significant edema and orthopnea since his discharge here. Patient has issues with swallowing for which he has had for quite some time, he still complains of having difficulty in swallowing certain foods. He did have an echocardiogram with Doppler study performed in June of this year which revealed an ejection fraction of 35-40%. Patient did have a Non-STEMI on his admission in June. Chest x-ray on admission here showed congestive heart failure with pleural effusions. EKG showed atrial fibrillation. BNP level 8680. Troponin 0.027. he remains on a Lasix drip at 10 mg an hour. His Entresto dose was increased yesterday. He is tolerating this well so far, blood pressure is stable as well as BUN and creatinine. Potassium is low today at 3.2. Patient put out 6625 ml of urine since midnight and his weight is down 6.5 kg since yesterday. Objective - Vital Signs Vital signs: Vital Signs Temp 98.1 F 09/09/17 04:00 Pulse 80 09/09/17 09:24 Resp 18 09/09/17 04:00 BP 133/80 09/09/17 04:00 Pulse Ox 96 09/09/17 04:00 Intake & Output 09/08/17 09/09/17 09/09/17 18:59 06:59 18:59 Intake Total 380 610 240 Output Total 1925 4700 1700 Balance -6740 -0505 -1460 Weight 113 kg Intake: Intake, IV Titration 250 Amount Furosemide 250 mg In 250 Sodium Chloride 0.9% 225 ml @ 10 MG/HR 10 mls/hr IVP .Q24H [facility] Rx#: [id number] Oral 380 360 240 Output: Urine 1925 4700 1700 Uretheral ([place]) 2850 1700 Other: Voiding Method Indwelling Catheter Indwelling Catheter # Bowel Movements 1 - Exam PHYSICAL EXAMINATION: HEENT: [Head is atraumatic, normocephalic. Pupils equal, round. Neck is supple. There is no elevated jugular venous pressure.] HEART EXAMINATION: [Heart sounds regular, S1 and S2 normal. No murmur or gallop heard.] CHEST EXAMINATION:[ Lungs reveal crackles bilateral bases. No chest wall tenderness is noted on palpation or with deep breathing.] ABDOMEN: [ Soft, nontender. Bowel sounds are heard. No organomegaly noted]. EXTREMITIES:[ 2+ peripheral pulses with evidence of 1+ peripheral edema, improved since yesterday and no calf tenderness noted]. NEUROLOGIC [patient is awake, alert and oriented x3.] . - Labs CBC & Chem 7: 09/04/17 19:30 09/09/17 06:11 Labs: Abnormal Lab Results - Last 24 Hours (Table) 09/08/17 09/08/17 09/08/17 Range/Units 12:04 16:25 20:43 PT (9.0-12.0) sec INR (<1.2) Sodium (137-145) mmol/L Potassium (3.5-5.1) mmol/L Chloride (98-107) mmol/L Carbon Dioxide (22-30) mmol/L Glucose (74-99) mg/dL POC Glucose (mg/dL) 132 H 182 H 248 H (75-99) mg/dL Calcium (8.4-10.2) mg/dL 09/09/17 09/09/17 09/09/17 Range/Units 06:02 06:11 06:11 PT 24.7 H (9.0-12.0) sec INR 2.7 H (<1.2) Sodium 135 L (137-145) mmol/L Potassium 3.2 L (3.5-5.1) mmol/L Chloride 88 L (98-107) mmol/L Carbon Dioxide 38 H (22-30) mmol/L Glucose 235 H (74-99) mg/dL POC Glucose (mg/dL) 234 H (75-99) mg/dL Calcium 8.1 L (8.4-10.2) mg/dL Assessment and Plan Assessment: #1 systolic congestive heart failure acute on chronic #2 known history of coronary artery disease with prior LAD stenting #3 Chronic persistent atrial fibrillation, on Coumadin for anticoagulation, INR 2.2 #4 Hypertension #5 Hyperlipidemia #6 Ischemic cardiomyopathy #7 history of CVA #8 COPD #9 history of smoking #10 diabetes #11 hypomagnesemia #12 hypokalemia secondary to IV Lasix drip Plan: from cardiology's perspective, we will continue IV Lasix drip at 10 mg an hour. Continue current Entresto dose. She can usually monitor strict I's and O's, daily weights, renal function and electrolytes. Patient to receive 40 mEq of potassium today for hypokalemia. Will continue to follow the patient provide further recommendations accordingly. TEA PLANTATION WORKER note has been reviewed, I agree with a documented findings and plan of care. Patient was seen and examined.
[2017-09-09] MEDS: POTASSIUM CHLORIDE ER 20 MEQ TAB.ER PO SCH ×2 (12:37→14:16)
[2017-09-09 16:29] LABS: Glucose,Whole Blood 122 mg/dL (75-99)
--- NOTE | 2017-09-09 18:53 | PN ---
PROGRESS NOTE DATE OF SERVICE: 09/09/2017 PRESENTING COMPLAINT: Short of breath. INTERVAL HISTORY: Patient with CHF exacerbation, remains on Lasix drip. I's and O's have been closely being done. The patient is close to close to 15 L of negative fluid balance. Doing better, lying in bed, tolerating his meals. Jeanie is at the bedside. Less anxious. REVIEW OF SYSTEMS: Done for constitutional, cardiovascular, GI, pulmonary; relevant findings as above. CURRENT MEDICATIONS: Reviewed that include: 1. Diamox 250 twice a day. 2. Insulin drip and. 3. Aldactone and. 4. Entresto. EXAMINATION: Temperature 97.9, pulse 80, respirations 18, blood pressure 135/72, pulse ox 97% on 3L. GENERAL APPEARANCE: Lying in bed, more comfortable. EYES: Pupils equal. Conjunctivae normal. HEENT: External appearance of nose and ears normal. Oral cavity normal. NECK: JVD not raised. Mass not palpable. RESPIRATORY: Effort increased. LUNGS: Decreased breath sounds. CARDIOVASCULAR: First and second sounds normal. Decreased edema. ABDOMEN: Soft, nontender. Liver and spleen not palpable. PSYCHIATRY: Alert and oriented x3. Mood and affect less anxious. INVESTIGATIONS: INR 2.7, BUN 3.2, bicarb 38, BUN 16, creatinine 0.87. Accu-Cheks are noted. ASSESSMENT: 1. Acute on chronic congestive heart failure exacerbation from systolic dysfunction, ejection fraction 40% from underlying ischemic cardiomyopathy. Continues on Lasix drip. 2. Persistent atrial fibrillation. 3. Diabetes mellitus type 2, chronically on insulin, uncontrolled from hyperglycemia causing peripheral neuropathy. 4. Hyperlipidemia. 5. Essential hypertension. 6. Chronic fibromyalgia. 7. Hiatal hernia. 8. 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 9. 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 10.Coronary artery disease with prior history of stent. 11.Depression, not otherwise specified. 12.Gait dysfunction, at baseline uses a walker. 13.Chronic obstructive pulmonary disease in an ex-smoker. 14.Hyponatremia, suspect hypoosmolar. 15.Presbyesophagus causing chronic dysphagia. 16.Coumadin monitoring. 17.Contraction alkalosis on Diamox. PLAN: Patient continues to do better. I had a lengthy talk with the patient and . I did explain to both the patient and that I am reluctant to give him medications for his anxiety. It may compromise his respiratory status. Overall, patient is doing better. Continue to follow electrolytes closely. Will resume patient's Humalog 5 units with meals. Will add Lantus in the evening. MMODL / IJN: [id number] /
[2017-09-09 21:06] LABS: Glucose,Whole Blood 230 mg/dL (75-99)
[2017-09-09] MEDS: INSULIN DETEMIR 100 UNIT/ML 10 ML VIAL SQ SCH (22:40)
[2017-09-10] MEDS: FUROSEMIDE 250 MG in SODIUM CHLORIDE 0.9% 225 ML IVP SCH (05:41)
[2017-09-10 05:47] LABS: Glucose,Whole Blood 261 mg/dL (75-99)
[2017-09-10] MEDS: INSULIN ASPART 100 UNIT/ML 1 ML 10 ML VIAL SQ SCH ×8 (06:47→21:30)
[2017-09-10] MEDS: PANTOPRAZOLE 40 MG TABLET PO SCH ×2 (06:47→17:47)
[2017-09-10] MEDS: METHADONE 5 MG TAB PO SCH ×2 (06:47→17:47)
[2017-09-10 06:58] LABS: INR 2.1 (<1.2); Prothrombin Time 19.4 sec (9.0-12.0)
[2017-09-10 07:09] LABS: Magnesium 1.8 mg/dL (1.6-2.3); Potassium 3.9 mmol/L (3.5-5.1)
[2017-09-10] MEDS: IPRATROPIUM-ALBUTEROL 3 ML NEB INHALATION PRN ×3 (07:30→19:27)
--- NOTE | 2017-09-10 10:02 | P.PN ---
Subjective Progress Note Date: 09/10/17 Principal diagnosis: CHF secondary to systolic dysfunction This is a 77-year-old gentleman who follows regularly with Dr. Jessi Gardner in the office. 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 He was discharged to [facility], he did develop a subsequent infection from an IV site for which she had a PICC line placed. He presents to the hospital on this occasion with a 3-4 day duration of progressively worsening shortness of breath, patient has also developed significant edema and orthopnea since his discharge here. Patient has issues with swallowing for which he has had for quite some time, he still complains of having difficulty in swallowing certain foods. He did have an echocardiogram with Doppler study performed in June of this year which revealed an ejection fraction of 35-40%. Patient did have a Non-STEMI on his admission in June. Chest x-ray on admission here showed congestive heart failure with pleural effusions. EKG showed atrial fibrillation. BNP level 8680. Troponin 0.027. On follow-up with the patient today, he denies having any chest pain and he stated that the shortness of breath has improved. No dizziness or lightheadedness. He still have diminished breathing sounds bilaterally and about 1+ pedal edema bilaterally. He continues to be on Lasix drip at 10 mg per hour. We did increase the dose of Entresto a few days ago. I would recommend continue the patient on Lasix drip for additional 24 hours. The creatinine continues to be stable. Objective - Vital Signs Vital signs: Vital Signs Temp 97.9 F 09/10/17 04:00 Pulse 72 09/10/17 07:45 Resp 18 09/10/17 04:00 BP 150/71 09/10/17 04:00 Pulse Ox 99 09/10/17 04:00 Intake & Output 09/09/17 09/10/17 09/10/17 18:59 06:59 18:59 Intake Total 840 235.333 480 Output Total 7100 800 Balance -6260 -564.667 480 Weight 113 kg Intake: Intake, IV Titration 235.333 Amount Furosemide 250 mg In 235.333 Sodium Chloride 0.9% 225 ml @ 10 MG/HR 10 mls/hr IVP .Q24H [facility] Rx#: [id number] Oral 840 480 Output: Urine 7100 800 Uretheral ([place]) 1700 800 Other: Voiding Method Indwelling Catheter Indwelling Catheter # Bowel Movements 0 - Constitutional General appearance: Present: no acute distress - Respiratory Respiratory: bilateral: diminished - Cardiovascular Heart sounds: normal: S1, S2 - Labs CBC & Chem 7: 09/04/17 19:30 09/10/17 06:25 Labs: Abnormal Lab Results - Last 24 Hours (Table) 09/09/17 09/09/17 09/09/17 Range/Units 11:41 16:20 21:04 PT (9.0-12.0) sec INR (<1.2) POC Glucose (mg/dL) 333 H 122 H 230 H (75-99) mg/dL 09/10/17 09/10/17 Range/Units 05:45 06:25 PT 19.4 H (9.0-12.0) sec INR 2.1 H (<1.2) POC Glucose (mg/dL) 261 H (75-99) mg/dL Assessment and Plan Assessment: Assessment #1 systolic congestive heart failure acute on chronic #2 known history of coronary artery disease with prior LAD stenting #3 Chronic persistent atrial fibrillation, on Coumadin for anticoagulation, INR 2.2 #4 Hypertension #5 Hyperlipidemia #6 Ischemic cardiomyopathy #7 history of CVA #8 COPD #9 history of smoking #10 diabetes #11 hypomagnesemia Plan #1 continue the Lasix drip for additional 24 hours #2 continue monitor the kidney function and electrolytes #3 follow-up with the patient.
[2017-09-10] MEDS: METOPROLOL TARTRATE 50 MG TAB PO SCH ×2 (11:26→21:30)
[2017-09-10] MEDS: TRIAMCINOLONE 0.1% CREAM 80 GM TUBE TOPICAL SCH ×2 (11:26→21:30)
[2017-09-10] MEDS: SPIRONOLACTONE 25 MG TAB PO SCH (11:27)
[2017-09-10] MEDS: SACUBITRIL/VALSARTAN 49 MG-51 MG TABLET PO SCH ×2 (11:27→21:30)
[2017-09-10] MEDS: acetaZOLAMIDE 250 MG TAB PO SCH ×2 (11:27→22:37)
[2017-09-10] MEDS: ASPIRIN 81 MG PO SCH (11:27)
[2017-09-10] MEDS: metFORMIN 500 MG TAB PO SCH ×2 (11:28→17:46)
[2017-09-10 11:51] LABS: Glucose,Whole Blood 237 mg/dL (75-99)
[2017-09-10 16:35] LABS: Glucose,Whole Blood 121 mg/dL (75-99)
[2017-09-10] MEDS ORDERED: WARFARIN 2.5 MG TAB PO SCH (18:00)
[2017-09-10 20:46] LABS: Glucose,Whole Blood 280 mg/dL (75-99)
[2017-09-10] MEDS: INSULIN DETEMIR 100 UNIT/ML 10 ML VIAL SQ SCH (21:30)
[2017-09-11] MEDS: METHADONE 5 MG TAB PO SCH ×4 (04:31→23:17)
[2017-09-11] MEDS: PANTOPRAZOLE 40 MG TABLET PO SCH ×2 (06:21→17:26)
[2017-09-11 06:38] LABS: Glucose,Whole Blood 218 mg/dL (75-99)
[2017-09-11 06:48] LABS: INR 1.5 (<1.2); Prothrombin Time 14.3 sec (9.0-12.0)
[2017-09-11] MEDS: INSULIN ASPART 100 UNIT/ML 1 ML 10 ML VIAL SQ SCH ×7 (07:02→20:50)
[2017-09-11] MEDS: IPRATROPIUM-ALBUTEROL 3 ML NEB INHALATION PRN ×4 (07:47→19:19)
[2017-09-11] MEDS: metFORMIN 500 MG TAB PO SCH (08:48)
[2017-09-11] MEDS: acetaZOLAMIDE 250 MG TAB PO SCH (08:48)
[2017-09-11] MEDS: ASPIRIN 81 MG PO SCH (08:48)
[2017-09-11] MEDS: METOPROLOL TARTRATE 50 MG TAB PO SCH ×2 (08:48→20:51)
[2017-09-11] MEDS: TRIAMCINOLONE 0.1% CREAM 80 GM TUBE TOPICAL SCH ×2 (08:49→20:50)
[2017-09-11] MEDS: SACUBITRIL/VALSARTAN 49 MG-51 MG TABLET PO SCH ×2 (08:49→20:51)
[2017-09-11] MEDS: SPIRONOLACTONE 25 MG TAB PO SCH (08:49)
[2017-09-11 09:30] LABS: Calcium 8.6 mg/dL (8.4-10.2); Potassium 3.6 mmol/L (3.5-5.1)
--- NOTE | 2017-09-11 10:37 | PN ---
PROGRESS NOTE DATE OF SERVICE: 09/10/2017 PRESENTING COMPLAINT: Short of breath. INTERVAL HISTORY: This patient was seen by me yesterday. Patient admitted with CHF exacerbation, remains on Lasix drip, is over 15 L in negative fluid balance. Still making good urine. Breathing is greatly improved. Off oxygen, tolerating his diet. Overall doing much better. REVIEW OF SYSTEMS: Done for constitutional, cardiovascular, GI, pulmonary; relevant findings as above. CURRENT MEDICATIONS: Reviewed that include Lasix drip, Diamox, Entresto, Aldactone. PHYSICAL EXAMINATION: Temperature 97.6 pulse 70, blood pressure 126/66, pulse ox 96% on 2 L. On examination, lying in bed, more comfortable. EYES: Pupils equal, conjunctivae normal. HEENT: External appearance of nose and ears normal. Oral cavity normal. NECK: JVD unable to assess. Mass not palpable. RESPIRATORY: Effort increased. LUNGS: Decreased breath sounds. CARDIOVASCULAR: First and second sounds are normal, improved edema. ABDOMEN: Soft, nontender. Liver and spleen not palpable. PSYCHIATRY: Alert and oriented x3. Mood and affect normal. INVESTIGATIONS: INR is 2.1. Accu-Cheks noted. ASSESSMENT: 1. Acute on chronic congestive heart failure exacerbation from systolic dysfunction, ejection fraction 40% from underlying ischemic cardiomyopathy, improving on Lasix drip. 2. Persistent atrial fibrillation. 3. Diabetes mellitus type 2, chronically on insulin, uncontrolled from hypoglycemia, causing peripheral neuropathy. 4. Hyperlipidemia. 5. Essential hypertension. 6. Chronic fibromyalgia. 7. Hiatal hernia. 8. 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 9. 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 10.Coronary artery disease, prior history of stent. 11.Depression, not otherwise specified. 12.Gait dysfunction uses ]baseline uses a walker. 13.Chronic obstructive pulmonary disease in an ex-smoker. 14.Hyponatremia suspect hypoosmolar. 15.Presbyesophagus causing chronic dysphagia. 16.Coumadin monitoring. 17.Contraction alkalosis. Patient was started on Diamox. PLAN: Overall doing much better. Had a talk with the and the patient, looking at patient going down to rehab, PT, OT is already on the case on the case. Will increase patient's dose of Lantus to 22 units. MMODL / IJN: [id number] /
[2017-09-11 12:40] LABS: Glucose,Whole Blood 241 mg/dL (75-99)
[2017-09-11] MEDS: FUROSEMIDE 250 MG in SODIUM CHLORIDE 0.9% 225 ML IVP SCH (13:51)
--- NOTE | 2017-09-11 14:18 | P.PN ---
Subjective Progress Note Date: 09/11/17 This is a 77-year-old gentleman who follows regularly with Dr. Jessi Gardner in the office. 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 He was discharged to [facility], he did develop a subsequent infection from an IV site for which she had a PICC line placed. He presents to the hospital on this occasion with a 3-4 day duration of progressively worsening shortness of breath, patient has also developed significant edema and orthopnea since his discharge here. Patient has issues with swallowing for which he has had for quite some time, he still complains of having difficulty in swallowing certain foods. He did have an echocardiogram with Doppler study performed in June of this year which revealed an ejection fraction of 35-40%. Patient did have a Non-STEMI on his admission in June. Chest x-ray on admission here showed congestive heart failure with pleural effusions. EKG showed atrial fibrillation. BNP level 8680. Troponin 0.027. he remains on a Lasix drip at 10 mg an hour. He is tolerating Entresto dose. Patient put out 6400 ml of urine since midnight and his weight is down 4.5 kg since yesterday. Objective - Vital Signs Vital signs: Vital Signs Temp 98.0 F 09/11/17 08:00 Pulse 76 09/11/17 11:52 Resp 18 09/11/17 04:00 BP 115/62 09/11/17 08:00 Pulse Ox 95 09/11/17 08:00 Intake & Output 09/10/17 09/11/17 09/11/17 18:59 06:59 18:59 Intake Total 1080 360 Output Total 1200 6400 Balance -120 -6400 360 Weight 108.5 kg Intake: Oral 1080 360 Output: Urine 1200 6400 Uretheral ([place]) 3950 Other: Voiding Method Indwelling Catheter Indwelling Catheter # Bowel Movements 0 - Exam PHYSICAL EXAMINATION: HEENT: Head is atraumatic, normocephalic. Pupils equal, round. Neck is supple. There is no elevated jugular venous pressure. HEART EXAMINATION: Heart sounds regular, S1 and S2 normal. No murmur or gallop heard. CHEST EXAMINATION: Lungs reveals diminished air entry bilaterally. No chest wall tenderness is noted on palpation or with deep breathing. ABDOMEN: Soft, nontender. Bowel sounds are heard. No organomegaly noted. EXTREMITIES: 2+ peripheral pulses with evidence of 1+ peripheral edema to left foot and right ankle and foot and no calf tenderness noted. NEUROLOGIC patient is awake, alert and oriented x3. . - Labs CBC & Chem 7: 09/04/17 19:30 09/11/17 05:59 Labs: Abnormal Lab Results - Last 24 Hours (Table) 09/10/17 09/10/17 09/11/17 Range/Units 16:24 20:43 05:59 PT 14.3 H (9.0-12.0) sec INR 1.5 H (<1.2) Sodium (137-145) mmol/L Chloride (98-107) mmol/L Carbon Dioxide (22-30) mmol/L Glucose (74-99) mg/dL POC Glucose (mg/dL) 121 H 280 H (75-99) mg/dL 09/11/17 09/11/17 Range/Units 05:59 06:35 PT (9.0-12.0) sec INR (<1.2) Sodium 134 L (137-145) mmol/L Chloride 93 L (98-107) mmol/L Carbon Dioxide 34 H (22-30) mmol/L Glucose 203 H (74-99) mg/dL POC Glucose (mg/dL) 218 H (75-99) mg/dL Assessment and Plan Assessment: #1 systolic congestive heart failure acute on chronic #2 known history of coronary artery disease with prior LAD stenting #3 Chronic persistent atrial fibrillation, on Coumadin for anticoagulation, INR 2.2 #4 Hypertension #5 Hyperlipidemia #6 Ischemic cardiomyopathy #7 history of CVA #8 COPD #9 history of smoking #10 diabetes #11 hypomagnesemia #12 hypokalemia secondary to IV Lasix drip Plan: from cardiology's perspective, we will continue IV Lasix drip at 10 mg an hour. Continue current Entresto dose. Continue to monitor strict I's and O's, daily weights, renal function and electrolytes. Will continue to follow the patient provide further recommendations accordingly. [employer] note has been reviewed, I agree with a documented findings and plan of care. Patient was seen and examined.
--- NOTE | 2017-09-11 14:45 | P.PN ---
Subjective 75-year-old gentleman was admitted secondary to acute hypoxic respiratory failure which was believed secondary to congestive heart failure chronic systolic dysfunction ejection fraction of 40% ischemic cardiomyopathy with acute exacerbation patient is on IV Lasix drip. Patient pedal edema improved patient JVD did improve significantly patient has significant expiratory wheezing does have history of smoking doesn't use any oxygen at home patient will be started on inhaled steroids patient probably will need to be switched to IV Lasix. Pulmonology will be consulted as family has concerns about requirement of CPAP at nighttime. Constitutional: Denied any fatigue denied any fever. Cardio vascular: denied any chest pain, palpitations Gastrointestinal denied any nausea vomiting Pulmonary: Shortness of breath significantly improved compared to admission and patient is complaining of cough and unable to bring up anything Neurologic denied any new focal deficits Objective - Vital Signs Vital signs: Vital Signs Temp 98.0 F 09/11/17 08:00 Pulse 74 09/11/17 12:00 Resp 18 09/11/17 04:00 BP 103/43 09/11/17 12:00 Pulse Ox 100 09/11/17 12:00 Intake & Output 09/10/17 09/11/17 09/11/17 18:59 06:59 18:59 Intake Total 1080 250 480 Output Total 1200 6400 1400 Balance -120 -8550 -920 Weight 108.5 kg Intake: Intake, IV Titration 250 Amount Furosemide 250 mg In 250 Sodium Chloride 0.9% 225 ml @ 10 MG/HR 10 mls/hr IVP .Q24H [facility] Rx#: [id number] Oral 1080 480 Output: Urine 1200 6400 1400 Uretheral ([place]) 3950 Other: Voiding Method Indwelling Catheter Indwelling Catheter # Bowel Movements 0 0 - Exam PHYSICAL EXAMINATION: GENERAL: The patient is alert and oriented x3, not in any acute distress. Well developed, well nourished. HEENT: Pupils are round and equally reacting to light. EOMI. No scleral icterus. No conjunctival pallor. Normocephalic, atraumatic. No pharyngeal erythema. No thyromegaly. CARDIOVASCULAR: S1 and S2 present. Patient appears to be in A. fib controlled rate, does have minimally elevated JVD PULMONARY: Limited air entry into bilateral lung burris, significant wheezing on exam. ABDOMEN: Soft, nontender, nondistended, normoactive bowel sounds. No palpable organomegaly. MUSCULOSKELETAL: No joint swelling or deformity. EXTREMITIES: No cyanosis, clubbing, or pedal edema. NEUROLOGICAL: Gross neurological examination did not reveal any focal deficits. SKIN: No rashes. - Labs CBC & Chem 7: 09/04/17 19:30 09/11/17 05:59 Labs: Abnormal Lab Results - Last 24 Hours (Table) 09/10/17 09/10/17 09/11/17 Range/Units 16:24 20:43 05:59 PT 14.3 H (9.0-12.0) sec INR 1.5 H (<1.2) Sodium (137-145) mmol/L Chloride (98-107) mmol/L Carbon Dioxide (22-30) mmol/L Glucose (74-99) mg/dL POC Glucose (mg/dL) 121 H 280 H (75-99) mg/dL 09/11/17 09/11/17 09/11/17 Range/Units 05:59 06:35 12:19 PT (9.0-12.0) sec INR (<1.2) Sodium 134 L (137-145) mmol/L Chloride 93 L (98-107) mmol/L Carbon Dioxide 34 H (22-30) mmol/L Glucose 203 H (74-99) mg/dL POC Glucose (mg/dL) 218 H 241 H (75-99) mg/dL Assessment and Plan Plan: -Acute hypoxic respiratory failure secondary to congestive heart failure chronic systolic dysfunction with acute exacerbation patient is on IV Lasix drip patient is fairly euvolemic at this point of time. -Possible COPD exacerbation patient will be started on inhaled steroids to see if there is any improvement in his respiratory status -Type 2 diabetes mellitus -Persistent A. fib presently rate controlled on anticoagulation, subtherapeutic on Coumadin dose of which will be increased -Hyperlipidemia -Essential hypertension -Fibromyalgia -Chronic low back pain with herniated disc -Coronary disease with stents in place -Depression -Hyponatremia: Possibly secondary to diuretic therapy Metabolic alkalosis: Secondary to hypercapnia and possible intravascular volume depletion and contraction alkalosis
[2017-09-11 16:53] LABS: Glucose,Whole Blood 187 mg/dL (75-99)
[2017-09-11] MEDS: methylPREDNISolone SOD SUCCI 40 MG/ML 1 ML VIAL IV SCH ×2 (17:29→23:12)
[2017-09-11] MEDS: WARFARIN 3 MG TAB PO SCH (17:30)
--- NOTE | 2017-09-11 19:02 | P.CNPUL ---
History of Present Illness Consult date: 09/11/17 Requesting physician: Oli Avilez Reason for consult: dyspnea, COPD, abnormal CXR/CT Chief complaint: Shortness of breath, wheezing, COPD and CHF exacerbation History of present illness: Mr. Flores is a 77-year-old white male patient of Dr. Stone, presented to the emergency department by EMS, on 09/04/2017 10/15/2023 with complaints of increasing dyspnea, increasing edema in bilateral lower extremities. Patient is an ex smoker, he has quit for quite some time, 30 years ago. Was previously diagnosed with COPD, but severity of which is unknown at this time. Patient denied any chest pain, denied any fever or chills, denied any coughing. Denied any chest congestion or sputum production. 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 Chest x-ray was completed in the emergency department and showed pulmonary vascular congestion, blunting of costophrenic angles and fluid in the fissures, these findings were consistent with congestive heart failure. EKG showed atrial fibrillation with a rate of 83 bpm. Cardiology was consulted, patient had a recent non-Q-wave NM in June 2017. Patient had another hospitalization in July for acute on chronic congestive heart failure with with systolic dysfunction and COPD exacerbation in addition to dysphagia. Patient was discharged to [facility]. Admission labs showed WBC of 6.1, hemoglobin of 9.9, INR of 2.2, serum sodium of 127, potassium of 4.6, chloride is 83, CO2 of 38, B1 of 22, creatinine 0.90, troponins were negative 1, proBNP was elevated at 8680. Vision's echocardiogram from 07/10/2017 showed moderately reduced left ventricular systolic function with an EF between 35-40% , severe concentric left ventricular hypertrophy. Patient has been initiated on IV diuretics, his weight is down 8.5 kg since admission, he is breathing has improved, his FiO2 is down to 2 L per nasal cannula with a pulse ox at 95%. He remains afebrile, sputum and blood culture remain negative, showed findings consistent with congestive heart failure, worsening volume status and bilateral pleural effusions. No new chest x-rays since 09/06/2017. Clinically patient is improving, he has been noted to be more wheezy, we were consult in regards to acute COPD exacerbation. Review of Systems All systems: negative Constitutional: Denies chills, Denies fever Eyes: denies blurred vision, denies pain Ears, nose, mouth and throat: Denies headache, Denies sore throat Cardiovascular: Reports decreased exercise tolerance, Reports dyspnea on exertion, Reports edema, Denies chest pain, Denies shortness of breath Respiratory: Reports dyspnea, Reports wheezing, Denies cough Gastrointestinal: Denies abdominal pain, Denies diarrhea, Denies nausea, Denies vomiting Musculoskeletal: Reports gait dysfunction, Reports limitation of motion, Denies myalgias Integumentary: Denies pruritus, Denies rash Neurological: Reports gait dysfunction, Denies numbness, Denies weakness Psychiatric: Denies anxiety, Denies depression Endocrine: Denies fatigue, Denies weight change Past Medical History Past Medical History: Atrial Fibrillation, Asthma, Coronary Artery Disease (CAD) , Heart Failure, COPD, CVA/TIA, Diabetes Mellitus, Eye Disorder, Fibromyalgia, GERD/Reflux, Hyperlipidemia, Hypertension, Musculoskeletal Disorder, Osteoarthritis (OA), Pneumonia, Prostate Disorder Additional Past Medical History / Comment(s): IDDM type II, neuropathy bilateral feet, ischemic cardiomyopathy, Afib with RVR, 2009 CVA with R sided weaknes upper and lower extremities, gait dysfunction, bilateral eyes glaucoma, hiatal hernia and gets food "stuck" at times, chronic low back pain, herniated discs, TURP for BPH, insomnia History of Any Multi-Drug Resistant Organisms: None Reported Past Surgical History: Back Surgery, Heart Catheterization With Stent, Orthopedic Surgery, Prostate Surgery Additional Past Surgical History / Comment(s): PCI with stent to LAD in 2001, unsuccessful cardioversion in 2017, endoscopic sinus surgery/polypectomy, colonoscopy, TURP, bilateral hydrocelectomy, low back surgery. Past Anesthesia/Blood Transfusion Reactions: No Reported Reaction Date of Last Stent Placement:: 2001 Past Psychological History: Anxiety, Depression Additional Psychological History / Comment(s): Pt currently at [facility] for rehab. He has been getting up with a walker but not recently d/t breathing difficulty. Smoking Status: Former smoker Past Alcohol Use History: None Reported Additional Past Alcohol Use History / Comment(s): Pt started smoking in 1958 and quit in 1989 Past Drug Use History: None Reported - Past Family History Mother Family Medical History: No Reported History Father Family Medical History: Cancer Additional Family Medical History / Comment(s): Father had prostrate cancer. Medications and Allergies Home Medications Medication Instructions Recorded Confirmed Type metFORMIN HCL 1,000 mg PO BID@0800,1600 11/26/13 09/04/17 History Omeprazole [PriLOSEC] 20 mg PO BID 10/10/16 09/04/17 History Triamcinolone 0.1% Cream [Kenalog] 1 applic TOPICAL BID 07/08/17 09/04/17 History Methadone [Dolophine] 5 mg PO Q8H #9 tab 07/14/17 09/04/17 Rx INSULIN LISPRO (HumaLOG) [humaLOG] See Protocol SQ ACHS 08/07/17 09/04/17 History INSULIN LISPRO (humaLOG) [humaLOG] 5 units SQ PC-TID 08/07/17 09/04/17 History Sacubitril/Valsartan [Entresto 24 1 tab PO BID@0800,2000 08/07/17 09/04/17 History mg-26 mg Tablet] Furosemide [Lasix] 80 mg PO BID@0800,1600 09/04/17 09/04/17 History L.acidoph,Paracasei, B.lactis 1 cap PO BID 09/04/17 09/04/17 History [Probiotic] Metoprolol Tartrate [Lopressor] 100 mg PO BID 09/04/17 09/04/17 History Potassium Chloride [Klor-Con 20] 20 meq PO BID 09/04/17 09/04/17 History Warfarin [Coumadin] 3 mg PO MOTH 09/04/17 09/04/17 History Warfarin [Coumadin] 5 mg PO SUTUWEFRSA 09/04/17 09/04/17 History Allergies Allergy/AdvReac Type Severity Reaction Status Date / Time Sulfa (Sulfonamide Allergy Rash/Hives Verified 09/04/17 20:09 Antibiotics) Physical Exam Vitals: Vital Signs Temp Pulse Pulse Resp BP Pulse Ox 09/11/17 15:44 110 H 16 09/11/17 15:34 109 H 16 97 09/11/17 12:00 74 103/43 100 09/11/17 11:52 76 09/11/17 11:42 76 09/11/17 08:00 98.0 F 75 115/62 95 09/11/17 07:57 76 09/11/17 07:48 72 98 09/11/17 04:00 97.4 F L 73 18 120/61 98 09/10/17 23:57 97.8 F 76 18 131/65 99 09/10/17 20:00 98.1 F 96 18 126/80 93 L 09/10/17 19:43 88 09/10/17 19:28 82 09/10/17 18:20 89 18 130/63 96 Intake and Output 09/11/17 09/11/17 09/11/17 06:59 14:59 22:59 Intake Total 250 480 Output Total 4700 1400 Balance -4450 -920 Intake: Intake, IV Titration 250 Amount Furosemide 250 mg In 250 Sodium Chloride 0.9% 225 ml @ 10 MG/HR 10 mls/hr IVP .Q24H [facility] Rx#: [id number] Oral 480 Output: Urine 4700 1400 Uretheral (Irwin) 3950 Other: Voiding Method Indwelling Catheter Indwelling Catheter # Bowel Movements 0 Weight 108.5 kg 77-year-old elderly white male sitting in the chair, on 2 L per nasal cannula, currently in no apparent distress - Constitutional General appearance: cooperative, no acute distress - EENT Eyes: PERRLA ENT: NA/AT - Neck Neck: no lymphadenopathy, normal ROM Carotids: bilateral: upstroke normal Thyroid: bilateral: normal size - Respiratory Respiratory: bilateral: wheezing, prolonged expiration - Cardiovascular Rhythm: irregularly irregular Heart sounds: normal: S1, S2 leg Peripheral Edema: bilateral: Trace dorsalis pedis Peripheral Pulses: bilateral: Normal radial pulse Peripheral Pulses: bilateral: Normal - Gastrointestinal General gastrointestinal: no organomegaly, soft, no tenderness - Integumentary Integumentary: normal turgor - Neurologic Neurologic: CNII-XII intact - Musculoskeletal Musculoskeletal: generalized weakness, strength equal bilaterally - Psychiatric Psychiatric: A&O x's 3, appropriate affect, intact judgment & insight Results - Laboratory Findings CBC and BMP: 09/04/17 19:30 09/11/17 05:59 PT/INR, D-dimer PT 14.3 sec (9.0-12.0) H 09/11/17 05:59 INR 1.5 (<1.2) H 09/11/17 05:59 Abnormal lab findings: Abnormal Labs 09/04/17 09/04/17 09/04/17 19:30 19:30 19:30 RBC 3.89 L Hgb 9.9 L Hct 32.3 L MCHC 30.7 L Lymphocytes # 0.8 L PT INR Sodium 127 L Potassium Chloride 83 L Carbon Dioxide 38 H BUN 22 H Glucose 165 H POC Glucose (mg/dL) Calcium 8.2 L Magnesium 1.5 L Total Creatine Kinase 20 L Total Protein 5.6 L Albumin 2.7 L 09/04/17 09/04/17 09/04/17 19:30 20:43 22:54 RBC Hgb Hct MCHC Lymphocytes # PT 19.9 H INR 2.2 H Sodium Potassium Chloride Carbon Dioxide BUN Glucose POC Glucose (mg/dL) 261 H 182 H Calcium Magnesium Total Creatine Kinase Total Protein Albumin 09/05/17 09/05/17 09/05/17 06:01 06:15 11:18 RBC Hgb Hct MCHC Lymphocytes # PT INR Sodium 132 L Potassium Chloride 84 L Carbon Dioxide 39 H BUN Glucose 100 H POC Glucose (mg/dL) 147 H 193 H Calcium 8.3 L Magnesium Total Creatine Kinase Total Protein Albumin 09/05/17 09/05/17 09/06/17 16:30 21:18 00:19 RBC Hgb Hct MCHC Lymphocytes # PT INR Sodium Potassium Chloride Carbon Dioxide BUN Glucose POC Glucose (mg/dL) 157 H 168 H 178 H Calcium Magnesium Total Creatine Kinase Total Protein Albumin 09/06/17 09/06/17 09/06/17 01:11 05:58 06:13 RBC Hgb Hct MCHC Lymphocytes # PT INR Sodium 132 L Potassium Chloride 84 L Carbon Dioxide 36 H BUN Glucose 190 H POC Glucose (mg/dL) 168 H 195 H Calcium 8.3 L Magnesium Total Creatine Kinase Total Protein Albumin 09/06/17 09/06/17 09/06/17 11:09 16:08 21:08 RBC Hgb Hct MCHC Lymphocytes # PT INR Sodium Potassium Chloride Carbon Dioxide BUN Glucose POC Glucose (mg/dL) 258 H 226 H 300 H Calcium Magnesium Total Creatine Kinase Total Protein Albumin 09/07/17 09/07/17 09/07/17 05:59 05:59 06:17 RBC Hgb Hct MCHC Lymphocytes # PT 40.9 H INR 4.5 H Sodium 132 L Potassium Chloride 89 L Carbon Dioxide 34 H BUN 22 H Glucose 177 H POC Glucose (mg/dL) 186 H Calcium 8.3 L Magnesium Total Creatine Kinase Total Protein Albumin 09/07/17 09/07/17 09/07/17 11:35 16:36 20:49 RBC Hgb Hct MCHC Lymphocytes # PT INR Sodium Potassium Chloride Carbon Dioxide BUN Glucose POC Glucose (mg/dL) 177 H 194 H 190 H Calcium Magnesium Total Creatine Kinase Total Protein Albumin 09/08/17 09/08/17 09/08/17 05:48 06:53 06:53 RBC Hgb Hct MCHC Lymphocytes # PT 37.6 H INR 4.2 H Sodium 134 L Potassium Chloride 88 L Carbon Dioxide 41 H* BUN Glucose 215 H POC Glucose (mg/dL) 233 H Calcium 7.9 L Magnesium Total Creatine Kinase Total Protein Albumin 09/08/17 09/08/17 09/08/17 12:04 16:25 20:43 RBC Hgb Hct MCHC Lymphocytes # PT INR Sodium Potassium Chloride Carbon Dioxide BUN Glucose POC Glucose (mg/dL) 132 H 182 H 248 H Calcium Magnesium Total Creatine Kinase Total Protein Albumin 09/09/17 09/09/17 09/09/17 06:02 06:11 06:11 RBC Hgb Hct MCHC Lymphocytes # PT 24.7 H INR 2.7 H Sodium 135 L Potassium 3.2 L Chloride 88 L Carbon Dioxide 38 H BUN Glucose 235 H POC Glucose (mg/dL) 234 H Calcium 8.1 L Magnesium Total Creatine Kinase Total Protein Albumin 09/09/17 09/09/17 09/09/17 11:41 16:20 21:04 RBC Hgb Hct MCHC Lymphocytes # PT INR Sodium Potassium Chloride Carbon Dioxide BUN Glucose POC Glucose (mg/dL) 333 H 122 H 230 H Calcium Magnesium Total Creatine Kinase Total Protein Albumin 09/10/17 09/10/17 09/10/17 05:45 06:25 11:45 RBC Hgb Hct MCHC Lymphocytes # PT 19.4 H INR 2.1 H Sodium Potassium Chloride Carbon Dioxide BUN Glucose POC Glucose (mg/dL) 261 H 237 H Calcium Magnesium Total Creatine Kinase Total Protein Albumin 07/09/10/17 09/11/17 16:24 20:43 05:59 RBC Hgb Hct MCHC Lymphocytes # PT 14.3 H INR 1.5 H Sodium Potassium Chloride Carbon Dioxide BUN Glucose POC Glucose (mg/dL) 121 H 280 H Calcium Magnesium Total Creatine Kinase Total Protein Albumin 09/11/17 09/11/17 09/11/17 05:59 06:35 12:19 RBC Hgb Hct MCHC Lymphocytes # PT INR Sodium 134 L Potassium Chloride 93 L Carbon Dioxide 34 H BUN Glucose 203 H POC Glucose (mg/dL) 218 H 241 H Calcium Magnesium Total Creatine Kinase Total Protein Albumin 09/11/17 16:27 RBC Hgb Hct MCHC Lymphocytes # PT INR Sodium Potassium Chloride Carbon Dioxide BUN Glucose POC Glucose (mg/dL) 187 H Calcium Magnesium Total Creatine Kinase Total Protein Albumin - Diagnostic Findings Chest x-ray: report reviewed, image reviewed Additional studies: EKG reviewed Assessment and Plan Plan: Assessment: #1. Acute hypoxemic respiratory failure secondary to acute exacerbation of congestive heart failure with systolic dysfunction #2. Acute exacerbation of COPD, with chronic hypercapnic respiratory failure #3. Chronic persistent atrial fibrillation on chronic anticoagulation, and currently INR subtherapeutic at 1.5 on today's labs on 09/11/2017 #4. Hyponatremia, possibly related to diuresis #5. Coronary artery disease, status post stenting #6. History of CVA with residual right-sided weakness #7. Ischemic cardiomyopathy with reduced left ventricular systolic function, the latest echocardiogram from 07/10/2017 showed overall moderately impaired left ventricular function with EF between 35-40% #8. Diabetes mellitus #9. Gait dysfunction #10. Hypertension, hyperlipidemia #11. Depression #12. Chronic pain syndrome #13. Previous episodes of pneumonia #14. History of benign prostatic hypertrophy status post TURP procedure #15. History of hiatal hernia #16. Remote history of smoking Plan: We'll obtain repeat chest x-ray in the morning, clinically patient is improving , responded well to IV diuretics, his weight is trending down, he is breathing easier, his FiO2 is down to 2 L per nasal cannula. He does have expiratory wheezes, nonproductive cough, we will start Solu-Medrol at 40 mg every 8 hours, continue nebulized bronchodilators, continue Pulmicort. There is a question whether the patient needs a BiPAP device for his history of COPD. We can obtain an ABG in am on his home FiO2, and this needs to be clarified,how much oxygen patient wears at his baseline. We'll continue to follow with you I performed a history & physical examination of the patient and discussed their management with my nurse practitioner, Tiffany Clements. I reviewed the nurse practitioner's note and agree with the documented findings and plan of care. Lung sounds are positive for diffuse expiratory wheezes. The findings and the impression was discussed with the patient. I attest to the documentation by the nurse practitioner. Time with Patient: Greater than 30
[2017-09-11] MEDS: BUDESONIDE 0.5 MG/2 ML NEBU INHALATION SCH (19:19)
[2017-09-11 20:11] LABS: Glucose,Whole Blood 301 mg/dL (75-99)
[2017-09-11] MEDS ORDERED: INSULIN DETEMIR 100 UNIT/ML 10 ML VIAL SQ SCH (21:00)
[2017-09-12 05:56] LABS: Glucose,Whole Blood 414 mg/dL (75-99)
[2017-09-12 06:43] LABS: INR 1.4 (<1.2); Prothrombin Time 13.3 sec (9.0-12.0)
[2017-09-12] MEDS: IPRATROPIUM-ALBUTEROL 3 ML NEB INHALATION PRN ×4 (07:30→19:42)
[2017-09-12] MEDS: BUDESONIDE 0.5 MG/2 ML NEBU INHALATION SCH ×2 (07:30→19:43)
[2017-09-12] MEDS: METHADONE 5 MG TAB PO SCH ×3 (07:44→22:07)
[2017-09-12] MEDS: INSULIN ASPART 100 UNIT/ML 1 ML 10 ML VIAL SQ SCH ×7 (07:44→22:06)
[2017-09-12] MEDS: PANTOPRAZOLE 40 MG TABLET PO SCH ×2 (07:45→17:27)
[2017-09-12] MEDS: methylPREDNISolone SOD SUCCI 40 MG/ML 1 ML VIAL IV SCH (07:55)
[2017-09-12] MEDS: METOPROLOL TARTRATE 50 MG TAB PO SCH ×2 (07:56→22:07)
[2017-09-12] MEDS: TRIAMCINOLONE 0.1% CREAM 80 GM TUBE TOPICAL SCH ×2 (07:57→21:30)
[2017-09-12] MEDS: SACUBITRIL/VALSARTAN 49 MG-51 MG TABLET PO SCH ×2 (07:57→22:07)
[2017-09-12] MEDS: SPIRONOLACTONE 25 MG TAB PO SCH (07:57)
[2017-09-12] MEDS: ASPIRIN 81 MG PO SCH (07:57)
[2017-09-12 10:13] LABS: ABG Base Excess 4.7 mmol/L; ABG HCO3 29 mmol/L (21-25); ABG Oxygen Saturation 92.8 % (94-97); ABG PCO2 47 mmHg (35-45); ABG PH 7.42 (7.35-7.45); ABG PO2 58 mmHg (83-108)
--- NOTE | 2017-09-12 10:25 | P.PN ---
Subjective Progress Note Date: 09/12/17 Principal diagnosis: CHF secondary to systolic dysfunction This is a 77-year-old gentleman who follows regularly with Dr. Jessi Gardner in the office. 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 He was discharged to [facility], he did develop a subsequent infection from an IV site for which she had a PICC line placed. He presents to the hospital on this occasion with a 3-4 day duration of progressively worsening shortness of breath, patient has also developed significant edema and orthopnea since his discharge here. Patient has issues with swallowing for which he has had for quite some time, he still complains of having difficulty in swallowing certain foods. He did have an echocardiogram with Doppler study performed in June of this year which revealed an ejection fraction of 35-40%. Patient did have a Non-STEMI on his admission in June. Chest x-ray on admission here showed congestive heart failure with pleural effusions. EKG showed atrial fibrillation. BNP level 8680. Troponin 0.027. On follow-up with the patient today, overall he is feeling better indeterminable shortness of breath. He still have bilateral lower extremities edema. Distal on Lasix IV at 10 mg per hour. Pulmonary consults was placed yesterday and the patient is in process of being treated for COPD as well as. Objective - Vital Signs Vital signs: Vital Signs Temp 97 F L 09/12/17 08:00 Pulse 84 09/12/17 08:00 Resp 18 09/12/17 08:00 BP 130/87 09/12/17 08:00 Pulse Ox 99 09/12/17 08:00 Intake & Output 09/11/17 09/12/17 09/12/17 18:59 06:59 18:59 Intake Total 480 480 Output Total 1400 2750 Balance -920 -2750 480 Weight 109 kg Intake: Oral 480 480 Output: Urine 1400 2750 Uretheral (Irwin) 1000 Other: Voiding Method Indwelling Catheter Indwelling Catheter Indwelling Catheter # Bowel Movements 0 - Constitutional General appearance: Present: no acute distress - Respiratory Respiratory: bilateral: diminished - Cardiovascular Heart sounds: normal: S1, S2 - Labs CBC & Chem 7: 0709/18 19:30 09/11/17 05:59 Labs: Abnormal Lab Results - Last 24 Hours (Table) 09/11/17 09/11/17 09/11/17 Range/Units 12:19 16:27 20:09 PT (9.0-12.0) sec INR (<1.2) ABG pCO2 (35-45) mmHg ABG pO2 (83-108) mmHg ABG HCO3 (21-25) mmol/L ABG O2 Saturation (94-97) % POC Glucose (mg/dL) 241 H 187 H 301 H (75-99) mg/dL 09/12/17 09/12/17 09/12/17 Range/Units 05:45 05:54 10:04 PT 13.3 H (9.0-12.0) sec INR 1.4 H (<1.2) ABG pCO2 47 H (35-45) mmHg ABG pO2 58 L (83-108) mmHg ABG HCO3 29 H (21-25) mmol/L ABG O2 Saturation 92.8 L (94-97) % POC Glucose (mg/dL) 414 H (75-99) mg/dL Assessment and Plan Assessment: Assessment #1 systolic congestive heart failure acute on chronic #2 known history of coronary artery disease with prior LAD stenting #3 Chronic persistent atrial fibrillation, on Coumadin for anticoagulation, INR 2.2 #4 Hypertension #5 Hyperlipidemia #6 Ischemic cardiomyopathy #7 history of CVA #8 COPD #9 history of smoking #10 diabetes #11 hypomagnesemia Plan #1 continue the Lasix drip. #2 continue monitor the kidney function and electrolytes #3 follow-up with the patient.
[2017-09-12 11:05] LABS: Glucose,Whole Blood 496 mg/dL (75-99)
[2017-09-12] MEDS ORDERED: INSULIN ASPART 100 UNIT/ML 1 ML 10 ML VIAL SQ ONE ×2 (11:31→15:27)
--- NOTE | 2017-09-12 11:37 | P.PN ---
Subjective Progress Note Date: 09/12/17 Principal diagnosis: Acute hypoxic respiratory failure secondary to an acute exacerbation of systolic congestive heart failure. Mr. Flores is a 77-year-old white male patient of Dr. Stone, presented to the emergency department by EMS, on 09/04/2017 10/15/2023 with complaints of increasing dyspnea, increasing edema in bilateral lower extremities. Patient is an ex smoker, he has quit for quite some time, 30 years ago. Was previously diagnosed with COPD, but severity of which is unknown at this time. Patient denied any chest pain, denied any fever or chills, denied any coughing. Denied any chest congestion or sputum production. 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 Chest x-ray was completed in the emergency department and showed pulmonary vascular congestion, blunting of costophrenic angles and fluid in the fissures, these findings were consistent with congestive heart failure. EKG showed atrial fibrillation with a rate of 83 bpm. Cardiology was consulted, patient had a recent non-Q-wave [place] in June 2017. Patient had another hospitalization in July for acute on chronic congestive heart failure with with systolic dysfunction and COPD exacerbation in addition to dysphagia. Patient was discharged to [facility]. Admission labs showed WBC of 6.1, hemoglobin of 9.9, INR of 2.2, serum sodium of 127, potassium of 4.6, chloride is 83, CO2 of 38, B1 of 22, creatinine 0.90, troponins were negative 1, proBNP was elevated at 8680. [facility]'s echocardiogram from 07/10/2017 showed moderately reduced left ventricular systolic function with an EF between 35-40% , severe concentric left ventricular hypertrophy. Patient has been initiated on IV diuretics, his weight is down 8.5 kg since admission, he is breathing has improved, his FiO2 is down to 2 L per nasal cannula with a pulse ox at 95%. He remains afebrile, sputum and blood culture remain negative, showed findings consistent with congestive heart failure, worsening volume status and bilateral pleural effusions. No new chest x-rays since 09/06/2017. Clinically patient is improving, he has been noted to be more wheezy, we were consult in regards to acute COPD exacerbation. The patient is seen today 09/12/2017 in follow-up on the selective care unit. He is awake and alert in no acute distress. Resting quite comfortably in bed. He denies any worsening shortness of breath, cough or congestion. He did not wear the BiPAP last evening. Room air blood gases revealed a pO2 of 58, pCO2 47 , pH 7.42. No significant hypercapnia to qualify for home BiPAP. He may qualify for home oxygen however. He is currently maintaining O2 saturations in the high 90s on 2 L/m per nasal cannula. He's been afebrile. Hemodynamically stable. He is diuresing well and remains in a negative balance. Weight equal. Objective - Vital Signs Vital signs: Vital Signs Temp 97 F L 09/12/17 08:00 Pulse 84 09/12/17 08:00 Resp 18 09/12/17 08:00 BP 130/87 09/12/17 08:00 Pulse Ox 99 09/12/17 08:00 Intake & Output 09/11/17 09/12/17 09/12/17 18:59 06:59 18:59 Intake Total 480 480 Output Total 1400 2750 Balance -920 -2750 480 Weight 109 kg Intake: Oral 480 480 Output: Urine 1400 2750 Uretheral (Irwin) 1000 Other: Voiding Method Indwelling Catheter Indwelling Catheter Indwelling Catheter # Bowel Movements 0 - Exam - Constitutional General appearance: cooperative, no acute distress - EENT Eyes: PERRLA ENT: NA/AT - Neck Neck: no lymphadenopathy, normal ROM Carotids: bilateral: upstroke normal Thyroid: bilateral: normal size - Respiratory Respiratory: bilateral: wheezing, prolonged expiration - Cardiovascular Rhythm: irregularly irregular Heart sounds: normal: S1, S2 leg Peripheral Edema: bilateral: Trace dorsalis pedis Peripheral Pulses: bilateral: Normal radial pulse Peripheral Pulses: bilateral: Normal - Gastrointestinal General gastrointestinal: no organomegaly, soft, no tenderness - Integumentary Integumentary: normal turgor - Neurologic Neurologic: CNII-XII intact - Musculoskeletal Musculoskeletal: generalized weakness, strength equal bilaterally - Psychiatric Psychiatric: A&O x's 3, appropriate affect, intact judgment & insight - Labs CBC & Chem 7: 09/04/17 19:30 09/11/17 05:59 Labs: Abnormal Lab Results - Last 24 Hours (Table) 09/11/17 09/11/17 09/11/17 Range/Units 12:19 16:27 20:09 PT (9.0-12.0) sec INR (<1.2) ABG pCO2 (35-45) mmHg ABG pO2 (83-108) mmHg ABG HCO3 (21-25) mmol/L ABG O2 Saturation (94-97) % POC Glucose (mg/dL) 241 H 187 H 301 H (75-99) mg/dL 09/12/17 09/12/17 09/12/17 Range/Units 05:45 05:54 10:04 PT 13.3 H (9.0-12.0) sec INR 1.4 H (<1.2) ABG pCO2 47 H (35-45) mmHg ABG pO2 58 L (83-108) mmHg ABG HCO3 29 H (21-25) mmol/L ABG O2 Saturation 92.8 L (94-97) % POC Glucose (mg/dL) 414 H (75-99) mg/dL 09/12/17 Range/Units 11:03 PT (9.0-12.0) sec INR (<1.2) ABG pCO2 (35-45) mmHg ABG pO2 (83-108) mmHg ABG HCO3 (21-25) mmol/L ABG O2 Saturation (94-97) % POC Glucose (mg/dL) 496 H (75-99) mg/dL Assessment and Plan Assessment: Assessment: #1. Acute hypoxemic respiratory failure secondary to acute exacerbation of congestive heart failure with systolic dysfunction #2. Acute exacerbation of COPD #3. Chronic persistent atrial fibrillation on chronic anticoagulation, and currently INR subtherapeutic at 1.5 on today's labs on 09/11/2017 #4. Hyponatremia, possibly related to diuresis #5. Coronary artery disease, status post stenting #6. History of CVA with residual right-sided weakness #7. Ischemic cardiomyopathy with reduced left ventricular systolic function, the latest echocardiogram from 07/10/2017 showed overall moderately impaired left ventricular function with EF between 35-40% #8. Diabetes mellitus #9. Gait dysfunction #10. Hypertension, hyperlipidemia #11. Depression #12. Chronic pain syndrome #13. Previous episodes of pneumonia #14. History of benign prostatic hypertrophy status post TURP procedure #15. History of hiatal hernia #16. Remote history of smoking Plan: The patient is seen by Dr. Peterson. He is currently stable from the pulmonary standpoint. ABGs were reviewed. He does not qualify for BiPAP with a pCO2 of 42. He does probably qualify for home oxygen. We will check him on room air and a 6 minute walk as tolerated. We'll continue with his current medications. We will increase his activity as tolerated. We'll repeat a chest x-ray in a.m. We'll continue to follow. I, the cosigning physician, performed a history & physical examination of the patient. Lungs sounds with crackles in the bilateral posterior bases.. Maintaining good O2 saturations in the 90s on 2 L/m per nasal cannula. I discussed the assessment and plan of care with my nurse practitioner, Chuyita Williamson. I attest to the above note as dictated by her.
[2017-09-12 11:57] LABS: Glucose,Whole Blood 423 mg/dL (75-99)
--- NOTE | 2017-09-12 13:08 | XR ---
EXAMINATION TYPE: XR chest 1V portable DATE OF EXAM: 09/12/2017 COMPARISON: Prior chest 09/06/2017 HISTORY: Congestive heart failure TECHNIQUE: Single frontal view of the chest is obtained. FINDINGS: Findings are similar in there are is bibasilar increased density and enlargement the heart . Interstitium is increased however improved, aeration is better than on prior exam the upper lobes. No pneumothorax. Patient is rotated. PICC line is stable, there are overlying cardiac leads. IMPRESSION: Improvement in volume status, aeration compared to prior exam.
[2017-09-12 13:35] LABS: Calcium 8.7 mg/dL (8.4-10.2)
[2017-09-12 13:43] LABS: HCT 38.7 % (39.0-53.0); HGB 11.4 gm/dL (13.0-17.5); Hypochromasia Marked; MCH 25.8 pg (25.0-35.0); MCHC 29.5 g/dL (31.0-37.0); MCV 87.5 fL (80.0-100.0); Mean Platelet Volume 7.9; Platelet Count 320 k/uL (150-450); RBC 4.42 m/uL (4.30-5.90); RDW 15.6 % (11.5-15.5); WBC 5.5 k/uL (3.8-10.6)
[2017-09-12 14:49] LABS: Glucose,Whole Blood 404 mg/dL (75-99)
[2017-09-12 14:51] VITALS: BMI 31.6
--- NOTE | 2017-09-12 15:55 | P.PN ---
Subjective 75-year-old gentleman was admitted secondary to acute hypoxic respiratory failure which was believed secondary to congestive heart failure chronic systolic dysfunction ejection fraction of 40% ischemic cardiomyopathy with acute exacerbation patient is on IV Lasix drip. Patient pedal edema improved patient JVD did improve significantly patient has significant expiratory wheezing does have history of smoking doesn't use any oxygen at home patient will be started on inhaled steroids patient probably will need to be switched to IV Lasix. Pulmonology will be consulted as family has concerns about requirement of CPAP at nighttime. 09/12/2017 Patient is looking much better compared to yesterday sitting on the chair but his blood sugars are highly elevated because of the systemic steroids that was started yesterday for COPD. We'll cut down this IV steroids to oral steroids. Patient's Lantus dose was increased. Patient's eye IV drip Lasix will be discussed uterine patient was started on 60 minute grams IV twice a day of Lasix. Constitutional: Denied any fatigue denied any fever. Cardio vascular: denied any chest pain, palpitations Gastrointestinal denied any nausea vomiting Pulmonary: Shortness of breath significantly improved Neurologic denied any new focal deficits Objective - Vital Signs Vital signs: Vital Signs Temp 97 F L 09/12/17 12:00 Pulse 80 09/12/17 12:00 Resp 18 09/12/17 12:00 BP 160/75 09/12/17 12:00 Pulse Ox 95 09/12/17 12:00 Intake & Output 09/11/17 09/12/17 09/12/17 18:59 06:59 18:59 Intake Total 480 720 Output Total 1400 2750 Balance -920 -2750 720 Weight 109 kg 109 kg Intake: Oral 480 720 Output: Urine 1400 2750 Uretheral ([place]) 1000 Other: Voiding Method Indwelling Catheter Indwelling Catheter Indwelling Catheter # Bowel Movements 0 - Exam PHYSICAL EXAMINATION: GENERAL: The patient is alert and oriented x3, not in any acute distress. Well developed, well nourished. HEENT: Pupils are round and equally reacting to light. EOMI. No scleral icterus. No conjunctival pallor. Normocephalic, atraumatic. No pharyngeal erythema. No thyromegaly. CARDIOVASCULAR: S1 and S2 present. Patient appears to be in A. fib controlled rate, patient is a very resolved PULMONARY: Limited air entry into bilateral lung burris, expiratory wheezing improved significantly. ABDOMEN: Soft, nontender, nondistended, normoactive bowel sounds. No palpable organomegaly. MUSCULOSKELETAL: No joint swelling or deformity. EXTREMITIES: No cyanosis, clubbing, or pedal edema. NEUROLOGICAL: Gross neurological examination did not reveal any focal deficits. SKIN: No rashes. - Labs CBC & Chem 7: 09/12/17 05:45 09/12/17 05:45 Labs: Abnormal Lab Results - Last 24 Hours (Table) 09/11/17 09/11/17 09/12/17 Range/Units 16:27 20:09 05:45 Hgb (13.0-17.5) gm/dL Hct (39.0-53.0) % MCHC (31.0-37.0) g/dL RDW (11.5-15.5) % PT 13.3 H (9.0-12.0) sec INR 1.4 H (<1.2) ABG pCO2 (35-45) mmHg ABG pO2 (83-108) mmHg ABG HCO3 (21-25) mmol/L ABG O2 Saturation (94-97) % Sodium (137-145) mmol/L Chloride (98-107) mmol/L Carbon Dioxide (22-30) mmol/L BUN (9-20) mg/dL Glucose (74-99) mg/dL POC Glucose (mg/dL) 187 H 301 H (75-99) mg/dL 09/12/17 09/12/17 09/12/17 Range/Units 05:45 05:45 05:54 Hgb 11.4 L (13.0-17.5) gm/dL Hct 38.7 L (39.0-53.0) % MCHC 29.5 L (31.0-37.0) g/dL RDW 15.6 H (11.5-15.5) % PT (9.0-12.0) sec INR (<1.2) ABG pCO2 (35-45) mmHg ABG pO2 (83-108) mmHg ABG HCO3 (21-25) mmol/L ABG O2 Saturation (94-97) % Sodium 132 L (137-145) mmol/L Chloride 92 L (98-107) mmol/L Carbon Dioxide 31 H (22-30) mmol/L BUN 27 H (9-20) mg/dL Glucose 478 H* (74-99) mg/dL POC Glucose (mg/dL) 414 H (75-99) mg/dL 09/12/17 09/12/17 09/12/17 Range/Units 10:04 11:03 11:30 Hgb (13.0-17.5) gm/dL Hct (39.0-53.0) % MCHC (31.0-37.0) g/dL RDW (11.5-15.5) % PT (9.0-12.0) sec INR (<1.2) ABG pCO2 47 H (35-45) mmHg ABG pO2 58 L (83-108) mmHg ABG HCO3 29 H (21-25) mmol/L ABG O2 Saturation 92.8 L (94-97) % Sodium (137-145) mmol/L Chloride (98-107) mmol/L Carbon Dioxide (22-30) mmol/L BUN (9-20) mg/dL Glucose (74-99) mg/dL POC Glucose (mg/dL) 496 H 423 H (75-99) mg/dL 09/12/17 Range/Units 14:47 Hgb (13.0-17.5) gm/dL Hct (39.0-53.0) % MCHC (31.0-37.0) g/dL RDW (11.5-15.5) % PT (9.0-12.0) sec INR (<1.2) ABG pCO2 (35-45) mmHg ABG pO2 (83-108) mmHg ABG HCO3 (21-25) mmol/L ABG O2 Saturation (94-97) % Sodium (137-145) mmol/L Chloride (98-107) mmol/L Carbon Dioxide (22-30) mmol/L BUN (9-20) mg/dL Glucose (74-99) mg/dL POC Glucose (mg/dL) 404 H (75-99) mg/dL Assessment and Plan Plan: -Acute hypoxic respiratory failure secondary to congestive heart failure chronic systolic dysfunction with acute exacerbation patient is fairly euvolemic patient's IV Lasix drip will be discontinued and patient was started on IV push Lasix 60 twice a day -Possible COPD exacerbation and is presently on oral steroids with highly elevated blood sugars further management as mentioned above -Type 2 diabetes mellitus -Persistent A. fib presently rate controlled on anticoagulation, subtherapeutic on Coumadin with repeat INR tomorrow -Hyperlipidemia -Essential hypertension -Fibromyalgia -Chronic low back pain with herniated disc -Coronary disease with stents in place -Depression -Hyponatremia: Possibly secondary to diuretic therapy Metabolic alkalosis: Secondary to hypercapnia and possible intravascular volume depletion and contraction alkalosis
[2017-09-12 16:55] LABS: Glucose,Whole Blood 366 mg/dL (75-99)
[2017-09-12] MEDS: WARFARIN 3 MG TAB PO SCH (17:27)
[2017-09-12 20:59] LABS: Glucose,Whole Blood 291 mg/dL (75-99)
[2017-09-12] MEDS ORDERED: INSULIN DETEMIR 100 UNIT/ML 10 ML VIAL SQ SCH (21:00)
[2017-09-12] MEDS: FUROSEMIDE 10 MG/ML 10 ML VIAL IV SCH (22:06)
[2017-09-12] MEDS: LORazepam 0.5 MG TAB PO PRN (22:18)
[2017-09-13 06:06] LABS: Glucose,Whole Blood 218 mg/dL (75-99)
[2017-09-13 06:54] LABS: Anion Gap 7 mmol/L; Blood Urea Nitrogen 29 mg/dL (9-20); Calcium 8.8 mg/dL (8.4-10.2); Carbon Dioxide 35 mmol/L (22-30); Chloride 93 mmol/L (98-107); Glucose 219 mg/dL (74-99); Potassium 4.1 mmol/L (3.5-5.1); Sodium 135 mmol/L (137-145)
[2017-09-13] MEDS: PANTOPRAZOLE 40 MG TABLET PO SCH (07:06)
[2017-09-13] MEDS: INSULIN ASPART 100 UNIT/ML 1 ML 10 ML VIAL SQ SCH ×4 (07:06→12:35)
[2017-09-13] MEDS: METHADONE 5 MG TAB PO SCH ×2 (07:07→12:57)
[2017-09-13] MEDS: IPRATROPIUM-ALBUTEROL 3 ML NEB INHALATION PRN ×2 (07:33→11:08)
[2017-09-13] MEDS: BUDESONIDE 0.5 MG/2 ML NEBU INHALATION SCH (07:33)
[2017-09-13] MEDS ORDERED: predniSONE 20 MG TAB PO SCH (09:00)
[2017-09-13] MEDS: FUROSEMIDE 10 MG/ML 10 ML VIAL IV SCH (09:36)
[2017-09-13] MEDS: TRIAMCINOLONE 0.1% CREAM 80 GM TUBE TOPICAL SCH (09:36)
[2017-09-13] MEDS: ASPIRIN 81 MG PO SCH (09:36)
[2017-09-13] MEDS: SPIRONOLACTONE 25 MG TAB PO SCH (09:36)
[2017-09-13] MEDS: SACUBITRIL/VALSARTAN 49 MG-51 MG TABLET PO SCH (09:36)
[2017-09-13] MEDS: METOPROLOL TARTRATE 50 MG TAB PO SCH (09:36)
--- NOTE | 2017-09-13 10:43 | P.PN ---
Subjective Progress Note Date: 09/13/17 Principal diagnosis: Acute hypoxic respiratory failure secondary to an acute exacerbation of systolic congestive heart failure. Mr. Flores is a 77-year-old white male patient of Dr. Stone, presented to the emergency department by EMS, on 09/04/2017 10/15/2023 with complaints of increasing dyspnea, increasing edema in bilateral lower extremities. Patient is an ex smoker, he has quit for quite some time, 30 years ago. Was previously diagnosed with COPD, but severity of which is unknown at this time. Patient denied any chest pain, denied any fever or chills, denied any coughing. Denied any chest congestion or sputum production. 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 Chest x-ray was completed in the emergency department and showed pulmonary vascular congestion, blunting of costophrenic angles and fluid in the fissures, these findings were consistent with congestive heart failure. EKG showed atrial fibrillation with a rate of 83 bpm. Cardiology was consulted, patient had a recent non-Q-wave [place] in June 2017. Patient had another hospitalization in July for acute on chronic congestive heart failure with with systolic dysfunction and COPD exacerbation in addition to dysphagia. Patient was discharged to [facility]. Admission labs showed WBC of 6.1, hemoglobin of 9.9, INR of 2.2, serum sodium of 127, potassium of 4.6, chloride is 83, CO2 of 38, B1 of 22, creatinine 0.90, troponins were negative 1, proBNP was elevated at 8680. [facility] echocardiogram from 07/10/2017 showed moderately reduced left ventricular systolic function with an EF between 35-40% , severe concentric left ventricular hypertrophy. Patient has been initiated on IV diuretics, his weight is down 8.5 kg since admission, he is breathing has improved, his FiO2 is down to 2 L per nasal cannula with a pulse ox at 95%. He remains afebrile, sputum and blood culture remain negative, showed findings consistent with congestive heart failure, worsening volume status and bilateral pleural effusions. No new chest x-rays since 09/06/2017. Clinically patient is improving, he has been noted to be more wheezy, we were consult in regards to acute COPD exacerbation. The patient is seen today 09/12/2017 in follow-up on the selective care unit. He is awake and alert in no acute distress. Resting quite comfortably in bed. He denies any worsening shortness of breath, cough or congestion. He did not wear the BiPAP last evening. Room air blood gases revealed a pO2 of 58, pCO2 47 , pH 7.42. No significant hypercapnia to qualify for home BiPAP. He may qualify for home oxygen however. He is currently maintaining O2 saturations in the high 90s on 2 L/m per nasal cannula. He's been afebrile. Hemodynamically stable. He is diuresing well and remains in a negative balance. Weight equal. The patient is seen again today 09/13/2017 in follow-up on the selective care unit. He continues to improve daily. He denies any worsening shortness of breath, cough or congestion. He did not wear the BiPAP last evening. He continues to maintain good O2 saturations in the 90s on 2 L/m per nasal cannula. He was quite hyperglycemic secondary to IV Solu-Medrol which has since been switched to oral prednisone. Lasix drip was discontinued and switched IV 60 every 12. He is currently in a -1800 ML balance. Weight stable. Creatinine 0.91. Objective - Vital Signs Vital signs: Vital Signs Temp 97.3 F L 09/13/17 04:00 Pulse 88 09/13/17 07:57 Resp 18 09/13/17 04:00 BP 143/74 09/13/17 04:00 Pulse Ox 94 L 09/13/17 07:36 Intake & Output 09/12/17 09/13/17 09/13/17 18:59 06:59 18:59 Intake Total 1080 600 480 Output Total 1900 2400 Balance -820 -1800 480 Weight 109 kg 110 kg Intake: Oral 1080 600 480 Output: Urine 1900 2400 Other: Voiding Method Indwelling Catheter Indwelling Catheter - Exam - Constitutional General appearance: cooperative, no acute distress - EENT Eyes: PERRLA ENT: NA/AT - Neck Neck: no lymphadenopathy, normal ROM Carotids: bilateral: upstroke normal Thyroid: bilateral: normal size - Respiratory Respiratory: Faint crackles in the posterior bases - Cardiovascular Rhythm: irregularly irregular Heart sounds: normal: S1, S2 leg Peripheral Edema: bilateral: Trace dorsalis pedis Peripheral Pulses: bilateral: Normal radial pulse Peripheral Pulses: bilateral: Normal - Gastrointestinal General gastrointestinal: no organomegaly, soft, no tenderness - Integumentary Integumentary: normal turgor - Neurologic Neurologic: CNII-XII intact - Musculoskeletal Musculoskeletal: generalized weakness, strength equal bilaterally - Psychiatric Psychiatric: A&O x's 3, appropriate affect, intact judgment & insight - Labs CBC & Chem 7: 09/12/17 05:45 09/13/17 06:10 Labs: Abnormal Lab Results - Last 24 Hours (Table) 09/12/17 09/12/17 09/12/17 Range/Units 05:45 05:45 11:03 Hgb 11.4 L (13.0-17.5) gm/dL Hct 38.7 L (39.0-53.0) % MCHC 29.5 L (31.0-37.0) g/dL RDW 15.6 H (11.5-15.5) % Sodium 132 L (137-145) mmol/L Chloride 92 L (98-107) mmol/L Carbon Dioxide 31 H (22-30) mmol/L BUN 27 H (9-20) mg/dL Glucose 478 H* (74-99) mg/dL POC Glucose (mg/dL) 496 H (75-99) mg/dL 09/12/17 09/12/17 09/12/17 Range/Units 11:30 14:47 16:50 Hgb (13.0-17.5) gm/dL Hct (39.0-53.0) % MCHC (31.0-37.0) g/dL RDW (11.5-15.5) % Sodium (137-145) mmol/L Chloride (98-107) mmol/L Carbon Dioxide (22-30) mmol/L BUN (9-20) mg/dL Glucose (74-99) mg/dL POC Glucose (mg/dL) 423 H 404 H 366 H (75-99) mg/dL 09/12/17 09/13/17 09/13/17 Range/Units 20:57 06:02 06:10 Hgb (13.0-17.5) gm/dL Hct (39.0-53.0) % MCHC (31.0-37.0) g/dL RDW (11.5-15.5) % Sodium 135 L (137-145) mmol/L Chloride 93 L (98-107) mmol/L Carbon Dioxide 35 H (22-30) mmol/L BUN 29 H (9-20) mg/dL Glucose 219 H (74-99) mg/dL POC Glucose (mg/dL) 291 H 218 H (75-99) mg/dL Assessment and Plan Assessment: Assessment: #1. Acute hypoxic respiratory failure secondary to acute exacerbation of chronic congestive heart failure with systolic dysfunction #2. Acute exacerbation of COPD #3. Chronic persistent atrial fibrillation on chronic anticoagulation, and currently INR subtherapeutic at 1.5 on today's labs on 09/11/2017 #4. Hyponatremia, possibly related to diuresis #5. Coronary artery disease, status post stenting #6. History of CVA with residual right-sided weakness #7. Ischemic cardiomyopathy with reduced left ventricular systolic function, the latest echocardiogram from 07/10/2017 showed overall moderately impaired left ventricular function with EF between 35-40% #8. Diabetes mellitus #9. Gait dysfunction #10. Hypertension, hyperlipidemia #11. Depression #12. Chronic pain syndrome #13. Previous episodes of pneumonia #14. History of benign prostatic hypertrophy status post TURP procedure #15. History of hiatal hernia #16. Remote history of smoking Plan: The patient is seen by Dr. Peterson. He is currently stable from the pulmonary standpoint. We'll continue with his current medications. We will increase his activity as tolerated. We'll continue to follow. I, the cosigning physician, performed a history & physical examination of the patient. Lungs sounds with crackles in the bilateral posterior bases.. Maintaining good O2 saturations in the 90s on 2 L/m per nasal cannula. I discussed the assessment and plan of care with my nurse practitioner, Chuyita Williamson. I attest to the above note as dictated by her.
[2017-09-13 11:46] LABS: Glucose,Whole Blood 214 mg/dL (75-99)
[2017-09-13 12:01] VITALS: RESP 16; TEMP 97.6
[2017-09-13 12:53] VITALS: BP 126/67; PULSE 80
[2017-09-13 13:51] LABS: INR 1.6 (<1.2); Prothrombin Time 14.5 sec (9.0-12.0)
--- NOTE | 2017-09-13 14:24 | P.DS ---
Providers Date of admission: 09/04/17 21:34 Attending physician: Ephraim Underwood Consults: 09/04/17 21:34 Consult Physician Routine Consulting Provider: [facility] Consult Reason/Comments: Acute pulmonary edema Do you want consulting provider notified?: Yes 09/11/17 13:34 Consult Physician Routine Consulting Provider: Merna Brumfield Consult Reason/Comments: COPD Do you want consulting provider notified?: Yes Primary care physician: [facility] Course: 75-year-old gentleman was admitted secondary to acute hypoxic respiratory failure which was believed secondary to congestive heart failure chronic systolic dysfunction ejection fraction of 40% ischemic cardiomyopathy with acute exacerbation patient is on IV Lasix drip. Patient pedal edema improved patient JVD did improve significantly patient has significant expiratory wheezing does have history of smoking doesn't use any oxygen at home patient will be started on inhaled steroids patient probably will need to be switched to IV Lasix. Pulmonology will be consulted as family has concerns about requirement of CPAP at nighttime. 09/12/2017 Patient is looking much better compared to yesterday sitting on the chair but his blood sugars are highly elevated because of the systemic steroids that was started yesterday for COPD. We'll cut down this IV steroids to oral steroids. Patient's Lantus dose was increased. Patient's eye IV drip Lasix will be discussed uterine patient was started on 60 minute grams IV twice a day of Lasix. 09/13/2017 Patient has significant improvement in his respiratory status he does have expiratory wheezing patient is off oxygen patient volume status improved and pale euvolemic. Patient will continue his home dose of Lasix we'll add low- dose of metolazone we may need to increase the dose of metolazone. Coumadin dose was changed. Will need repeat basic metabolic profile and INR in 2-3 days. Need close follow-up with primary care physician and cardiology as an outpatient. Patient was treated for COPD exacerbation as well. Patient is being discharged on weaning doses of steroids. PHYSICAL EXAMINATION: GENERAL: The patient is alert and oriented x3, not in any acute distress. Well developed, well nourished. HEENT: Pupils are round and equally reacting to light. EOMI. No scleral icterus. No conjunctival pallor. Normocephalic, atraumatic. No pharyngeal erythema. No thyromegaly. CARDIOVASCULAR: S1 and S2 present. Patient appears to be in A. fib controlled rate, patient is a very resolved PULMONARY: Limited air entry into bilateral lung burris, expiratory wheezing improved significantly. ABDOMEN: Soft, nontender, nondistended, normoactive bowel sounds. No palpable organomegaly. MUSCULOSKELETAL: No joint swelling or deformity. EXTREMITIES: No cyanosis, clubbing, or pedal edema. NEUROLOGICAL: Gross neurological examination did not reveal any focal deficits. SKIN: No rashes. Assessment and Plan Plan: -Acute hypoxic respiratory failure secondary to congestive heart failure chronic systolic dysfunction with acute exacerbation patient is fairly euvolemic -COPD exacerbation -Type 2 diabetes mellitus: Patient blood sugars are not well controlled because of prednisone expected to come down once we've enough prednisone. Patient is presently on Lantus, metformin, short acting insulin. -Persistent A. fib presently rate controlled on anticoagulation, subtherapeutic on Coumadin -Hyperlipidemia -Essential hypertension -Fibromyalgia -Chronic low back pain with herniated disc -Coronary disease with stents in place -Depression -Hyponatremia: Possibly secondary to diuretic therapy, improved now after cutting back on diuretic therapy Metabolic alkalosis: Secondary to hypercapnia and possible intravascular volume depletion and contraction alkalosis Plan - Discharge Summary Discharge Rx Participant: Yes New Discharge Prescriptions: New Budesonide [Pulmicort] 0.5 mg INHALATION RT-BID nebu Insulin Detemir [Levemir] 15 unit SQ HS syr Ipratropium-Albuterol Nebulize [Duoneb 0.5 mg-3 mg/3 ml Soln] 3 ml INHALATION RT-QID PRN ampul.neb PRN Reason: Shortness Of Breath Or Wheezing Metolazone [Zaroxolyn] 2.5 mg PO DAILY #1 tablet predniSONE 10 mg PO DAILY #30 tab Spironolactone [Aldactone] 25 mg PO DAILY tab Warfarin [Coumadin] 3 mg PO DAILY@1800 tab Continue Omeprazole [PriLOSEC] 20 mg PO BID Triamcinolone 0.1% Cream [Kenalog] 1 applic TOPICAL BID INSULIN LISPRO (HumaLOG) [humaLOG] See Protocol SQ ACHS INSULIN LISPRO (humaLOG) [humaLOG] 5 units SQ PC-TID Sacubitril/Valsartan [Entresto 24 mg-26 mg Tablet] 1 tab PO BID@0800,2000 Furosemide [Lasix] 80 mg PO BID@0800,1600 L.acidoph,Paracasei, B.lactis [Probiotic] 1 cap PO BID Metoprolol Tartrate [Lopressor] 100 mg PO BID Potassium Chloride [Klor-Con 20] 20 meq PO BID Methadone [Dolophine] 5 mg PO Q8H #9 tab Discontinued metFORMIN HCL 1,000 mg PO BID@0800,1600 Warfarin [Coumadin] 5 mg PO SUTUWEFRSA Warfarin [Coumadin] 3 mg PO MOTH Discharge Medication List Omeprazole [PriLOSEC] 20 mg PO BID 10/10/16 [History] Triamcinolone 0.1% Cream [Kenalog] 1 applic TOPICAL BID 07/08/17 [History] INSULIN LISPRO (HumaLOG) [humaLOG] See Protocol SQ ACHS 08/07/17 [History] INSULIN LISPRO (humaLOG) [humaLOG] 5 units SQ PC-TID 08/07/17 [History] Sacubitril/Valsartan [Entresto 24 mg-26 mg Tablet] 1 tab PO BID@0800,1999 [History] Furosemide [Lasix] 80 mg PO BID@0800,1600 09/04/17 [History] L.acidoph,Paracasei, B.lactis [Probiotic] 1 cap PO BID 09/04/17 [History] Metoprolol Tartrate [Lopressor] 100 mg PO BID 09/04/17 [History] Potassium Chloride [Klor-Con 20] 20 meq PO BID 09/04/17 [History] Budesonide [Pulmicort] 0.5 mg INHALATION RT-BID nebu 09/13/17 [Rx] Insulin Detemir [Levemir] 15 unit SQ HS syr 09/13/17 [Rx] Ipratropium-Albuterol Nebulize [Duoneb 0.5 mg-3 mg/3 ml Soln] 3 ml INHALATION RT -QID PRN ampul.neb 09/13/17 [Rx] Methadone [Dolophine] 5 mg PO Q8H #9 tab 09/13/17 [Rx] Metolazone [Zaroxolyn] 2.5 mg PO DAILY #1 tablet 09/13/17 [Rx] Spironolactone [Aldactone] 25 mg PO DAILY tab 09/13/17 [Rx] Warfarin [Coumadin] 3 mg PO DAILY@1800 tab 09/13/17 [Rx] predniSONE 10 mg PO DAILY #30 tab 09/13/17 [Rx] Follow up Appointment(s)/Referral(s): Aruna Gardner MD [STAFF PHYSICIAN] - 1 Week Jhonatan Stone DO [Primary Care Provider] - 1-2 Days [facility], [NON-STAFF] - As Needed Ambulatory/Diagnostic Orders: Basic Metabolic Panel [LAB.AMB] Time Frame: 3 Days, Location: None Selected Prothrombin Time INR [LAB.AMB] Time Frame: 2 Days, Location: None Selected Discharge Disposition: TRANSFER TO SNF/ECF
--- NOTE | 2017-09-13 15:23 | P.PN ---
Subjective Progress Note Date: 09/13/17 This is a 77-year-old gentleman who follows regularly with Dr. Jessi Gardner in the office. 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 He was discharged to [facility], he did develop a subsequent infection from an IV site for which she had a PICC line placed. He presents to the hospital on this occasion with a 3-4 day duration of progressively worsening shortness of breath, patient has also developed significant edema and orthopnea since his discharge here. Patient has issues with swallowing for which he has had for quite some time, he still complains of having difficulty in swallowing certain foods. He did have an echocardiogram with Doppler study performed in June of this year which revealed an ejection fraction of 35-40%. Patient did have a Non-STEMI on his admission in June. Chest x-ray on admission here showed congestive heart failure with pleural effusions. EKG showed atrial fibrillation. BNP level 8680. Troponin 0.027. IV Lasix drip was discontinued yesterday and patient was started on Lasix 60 mg IV every 12 hours. Continues to have negative fluid balance and weight is stable. His BUN and creatinine are stable at 29 and 0.91. Upon examination, patient is resting comfortably in bed. He feels his breathing has significantly improved. Objective - Vital Signs Vital signs: Vital Signs Temp 97.6 F 09/13/17 08:00 Pulse 80 09/13/17 12:00 Resp 16 09/13/17 12:00 BP 126/67 09/13/17 12:00 Pulse Ox 98 09/13/17 12:00 Intake & Output 09/12/17 09/13/17 09/13/17 18:59 06:59 18:59 Intake Total 1080 600 720 Output Total 1900 2400 Balance -820 -1800 720 Weight 109 kg 110 kg Intake: Oral 1080 600 720 Output: Urine 1900 2400 Other: Voiding Method Indwelling Catheter Indwelling Catheter Indwelling Catheter - Exam PHYSICAL EXAMINATION: HEENT: Head is atraumatic, normocephalic. Pupils equal, round. Neck is supple. There is no elevated jugular venous pressure. HEART EXAMINATION: Heart sounds irregularly irregular, S1 and S2 normal. No murmur or gallop heard. CHEST EXAMINATION: Lungs reveals diminished air entry bilaterally. No chest wall tenderness is noted on palpation or with deep breathing. ABDOMEN: Soft, nontender. Bowel sounds are heard. No organomegaly noted. EXTREMITIES: 2+ peripheral pulses with evidence of 1+ peripheral edema to left foot and right ankle and foot and no calf tenderness noted. NEUROLOGIC patient is awake, alert and oriented x3. . - Labs CBC & Chem 7: 09/12/17 05:45 09/13/17 06:10 Labs: Abnormal Lab Results - Last 24 Hours (Table) 09/12/17 09/12/17 09/12/17 Range/Units 14:47 16:50 20:57 PT (9.0-12.0) sec INR (<1.2) Sodium (137-145) mmol/L Chloride (98-107) mmol/L Carbon Dioxide (22-30) mmol/L BUN (9-20) mg/dL Glucose (74-99) mg/dL POC Glucose (mg/dL) 404 H 366 H 291 H (75-99) mg/dL 09/13/17 09/13/17 09/13/17 Range/Units 06:02 06:10 11:40 PT (9.0-12.0) sec INR (<1.2) Sodium 135 L (137-145) mmol/L Chloride 93 L (98-107) mmol/L Carbon Dioxide 35 H (22-30) mmol/L BUN 29 H (9-20) mg/dL Glucose 219 H (74-99) mg/dL POC Glucose (mg/dL) 218 H 214 H (75-99) mg/dL 09/13/17 Range/Units 13:28 PT 14.5 H (9.0-12.0) sec INR 1.6 H (<1.2) Sodium (137-145) mmol/L Chloride (98-107) mmol/L Carbon Dioxide (22-30) mmol/L BUN (9-20) mg/dL Glucose (74-99) mg/dL POC Glucose (mg/dL) (75-99) mg/dL Assessment and Plan Assessment: #1 systolic congestive heart failure acute on chronic #2 known history of coronary artery disease with prior LAD stenting #3 Chronic persistent atrial fibrillation, on Coumadin for anticoagulation #4 Hypertension #5 Hyperlipidemia #6 Ischemic cardiomyopathy #7 history of CVA #8 COPD #9 history of smoking #10 diabetes #11 hypomagnesemia #12 hypokalemia secondary to IV Lasix drip, improved Plan: from cardiology's perspective, patient may be discharged home on oral diuretics. He will follow-up as an outpatient. PRINCIPAL JAVA SOFTWARE ENGINEER note has been reviewed, I agree with a documented findings and plan of care. Patient was seen and examined.
[2017-09-13 16:39] LABS: Glucose,Whole Blood 212 mg/dL (75-99)
== END 2017-09-13 18:16 | DRG 291 ==
LOC: EC 18:24 → 6SEL 21:34
PROVIDERS: ADMIT Hospitalist; ATTEND Hospitalist
DX: I11.0 Hypertensive heart disease with heart failure (principal); J96.01 Acute respiratory failure with hypoxia; E87.1 Hypo-osmolality and hyponatremia; E87.3 Alkalosis; I69.351 Hemiplegia and hemiparesis following cerebral infarction affecting right dominant side; J96.12 Chronic respiratory failure with hypercapnia; E11.42 Type 2 diabetes mellitus with diabetic polyneuropathy; E11.65 Type 2 diabetes mellitus with hyperglycemia; E78.5 Hyperlipidemia, unspecified; E83.42 Hypomagnesemia; E87.6 Hypokalemia; F17.200 Nicotine dependence, unspecified, uncomplicated; F32.9 Major depressive disorder, single episode, unspecified; F41.9 Anxiety disorder, unspecified; G89.4 Chronic pain syndrome; H40.9 Unspecified glaucoma; I25.2 Old myocardial infarction; I25.10 Atherosclerotic heart disease of native coronary artery without angina pectoris; I25.5 Ischemic cardiomyopathy; I48.2 Chronic atrial fibrillation; I50.23 Acute on chronic systolic (congestive) heart failure; K21.9 Gastro-esophageal reflux disease without esophagitis; K44.9 Diaphragmatic hernia without obstruction or gangrene; M51.26 Other intervertebral disc displacement, lumbar region; M79.7 Fibromyalgia; N40.1 Benign prostatic hyperplasia with lower urinary tract symptoms; R13.10 Dysphagia, unspecified; R33.8 Other retention of urine; T50.1X5A Adverse effect of loop [high-ceiling] diuretics, initial encounter; Z79.01 Long term (current) use of anticoagulants; Z79.4 Long term (current) use of insulin; Z79.899 Other long term (current) drug therapy; Z80.42 Family history of malignant neoplasm of prostate; Z95.5 Presence of coronary angioplasty implant and graft; Z90.79 Acquired absence of other genital organ(s); Z88.2 Allergy status to sulfonamides; J44.9 Chronic obstructive pulmonary disease, unspecified
CPT/HCPCS: 36415; 71045; 71046; 80048; 80053; 82550; 82553; 82805; 83735; 83880; 84132; 84484; 85025; 85027; 85610; 85730; 93005; 94640; 94660; 94760; 96374; 99291

== ENCOUNTER 2017-09-20 19:39 | Inpatient (IN) | payer MEDICARE, BC ==
[2017-09-20] MEDS ORDERED: SODIUM CHLORIDE 0.9% 500 ML IV STA (20:26)
[2017-09-20] MEDS ORDERED: SODIUM CHLORIDE 0.9% 1,000 ML IV STA (20:26)
--- NOTE | 2017-09-20 20:28 | ED ---
General Adult HPI - General Chief complaint: Recheck/Abnormal Lab/Rx Stated complaint: HIGH BLOOD SUGAR Time Seen by Provider: 09/20/17 19:53 Source: patient, RN notes reviewed, old records reviewed Mode of arrival: EMS Limitations: no limitations - History of Present Illness Initial comments: This is a 77-year-old male the ER today. Patient presents today for evaluation of chronically high blood sugars. Patient states his blood sugars been running in the 500s, cannot keep control blood sugar. Patient's is a diabetic on insulin. Patient is currently on steroids. Patient denies any significant complaints of headache chest pain shortness breath or abdominal pain o nausea vomiting or diarrhea. Patient has positive fever currently. Patient has and denies sore throat. - Related Data Home Medications Medication Instructions Recorded Confirmed Omeprazole [PriLOSEC] 20 mg PO HS PRN 10/10/16 09/20/17 Triamcinolone 0.1% Cream [Kenalog] 1 applic TOPICAL BID 07/08/17 09/20/17 INSULIN LISPRO (HumaLOG) [humaLOG] See Protocol SQ ACHS 08/07/17 09/20/17 INSULIN LISPRO (humaLOG) [humaLOG] 5 units SQ PC-TID@,13,08/07/17 09/20/17 Sacubitril/Valsartan [Entresto 24 1 tab PO BID@0800,199908/07/17 09/20/17 mg-26 mg Tablet] Furosemide [Lasix] 80 mg PO BID@0800,1600 09/04/17 09/20/17 L.acidoph,Paracasei, B.lactis 1 cap PO BID@0800,1600 09/04/17 09/20/17 [Probiotic] Metoprolol Tartrate [Lopressor] 100 mg PO BID@0800,1600 09/04/17 09/20/17 Potassium Chloride [Klor-Con 20] 20 meq PO BID@0800,1600 09/04/17 09/20/17 Ipratropium-Albuterol Nebulize 3 ml INHALATION RT-Q4H PRN 09/20/17 09/20/17 [Duoneb 0.5 mg-3 mg/3 ml Soln] Omeprazole [PriLOSEC] 20 mg PO AC-BID@08,16 09/20/17 09/20/17 Ondansetron [Zofran] 4 mg PO Q8HR PRN 09/20/17 09/20/17 Warfarin Sodium [Coumadin] 4 mg PO ONCE PRN 09/20/17 09/20/17 predniSONE See Taper PO DAILY 09/20/17 09/20/17 Previous Rx's Medication Instructions Recorded Budesonide [Pulmicort] 0.5 mg INHALATION RT-BID nebu 09/13/17 Methadone [Dolophine] 5 mg PO Q8H #9 tab 09/13/17 Metolazone [Zaroxolyn] 2.5 mg PO DAILY #1 tablet 09/13/17 Spironolactone [Aldactone] 25 mg PO DAILY tab 09/13/17 Allergies Allergy/AdvReac Type Severity Reaction Status Date / Time Sulfa (Sulfonamide Allergy Rash/Hives Verified 09/20/17 20:17 Antibiotics) Review of Systems ROS Statement: Those systems with pertinent positive or pertinent negative responses have been documented in the HPI. ROS Other: All systems not noted in ROS Statement are negative. Past Medical History Past Medical History: Atrial Fibrillation, Asthma, Coronary Artery Disease (CAD) , Heart Failure, COPD, CVA/TIA, Diabetes Mellitus, Eye Disorder, Fibromyalgia, GERD/Reflux, Hyperlipidemia, Hypertension, Musculoskeletal Disorder, Osteoarthritis (OA), Pneumonia, Prostate Disorder Additional Past Medical History / Comment(s): IDDM type II, neuropathy bilateral feet, ischemic cardiomyopathy, Afib with RVR, 2008 CVA with R sided weaknes upper and lower extremities, gait dysfunction, bilateral eyes glaucoma, hiatal hernia and gets food "stuck" at times, chronic low back pain, herniated discs, TURP for BPH, insomnia History of Any Multi-Drug Resistant Organisms: None Reported Past Surgical History: Back Surgery, Heart Catheterization With Stent, Orthopedic Surgery, Prostate Surgery Additional Past Surgical History / Comment(s): PCI with stent to LAD in 2001, unsuccessful cardioversion in 2016, endoscopic sinus surgery/polypectomy, colonoscopy, TURP, bilateral hydrocelectomy, low back surgery. Past Anesthesia/Blood Transfusion Reactions: No Reported Reaction Date of Last Stent Placement:: 2001 Past Psychological History: Anxiety, Depression Smoking Status: Former smoker Past Alcohol Use History: None Reported Past Drug Use History: None Reported - Past Family History Mother Family Medical History: No Reported History Father Family Medical History: Cancer Additional Family Medical History / Comment(s): Father had prostrate cancer. General Exam Limitations: no limitations General appearance: alert, in no apparent distress Head exam: Present: atraumatic, normocephalic, normal inspection Eye exam: Present: normal appearance, PERRL, EOMI. Absent: scleral icterus, conjunctival injection, periorbital swelling ENT exam: Present: normal exam, mucous membranes moist Neck exam: Present: normal inspection. Absent: tenderness, meningismus, lymphadenopathy Respiratory exam: Present: normal lung sounds bilaterally. Absent: respiratory distress, wheezes, rales, rhonchi, stridor Cardiovascular Exam: Present: regular rate, normal rhythm, normal heart sounds. Absent: systolic murmur, diastolic murmur, rubs, gallop, clicks GI/Abdominal exam: Present: soft, normal bowel sounds. Absent: distended, tenderness, guarding, rebound, rigid Extremities exam: Present: normal inspection, full ROM, normal capillary refill. Absent: tenderness, pedal edema, joint swelling, calf tenderness Back exam: Present: normal inspection Neurological exam: Present: alert, oriented X3, CN II-XII intact Psychiatric exam: Present: normal affect, normal mood Skin exam: Present: warm, dry, intact, normal color. Absent: rash Course Vital Signs 09/20/17 09/20/17 09/20/17 20:15 21:53 21:58 Temperature 101.1 F H Pulse Rate 65 88 90 Respiratory 18 Rate Blood Pressure 123/63 O2 Sat by Pulse 96 Oximetry EKG Findings - EKG Comments: EKG Findings:: EKG shows A. fib rate of 82, QRS 118, QTc 474 Medical Decision Making - Medical Decision Making 77 female to ER for evaluation of altered mental status, fever, not feeling well. Elevated blood sugar unresponsive. No cause of fever found, place on antibiotics. Patient placed on IV resuscitation and electrode replacement - Lab Data Result diagrams: 09/21/17 05:26 09/21/17 05:26 Lab Results 09/20/17 09/20/17 09/20/17 Range/Units 20:12 20:12 20:21 WBC 14.6 H (3.8-10.6) k/uL RBC 4.63 (4.30-5.90) m/uL Hgb 11.9 L (13.0-17.5) gm/dL Hct 38.1 L (39.0-53.0) % MCV 82.3 (80.0-100.0) fL MCH 25.7 (25.0-35.0) pg MCHC 31.2 (31.0-37.0) g/dL RDW 15.9 H (11.5-15.5) % Plt Count 302 (150-450) k/uL Neutrophils % 86 % Lymphocytes % 7 % Monocytes % 6 % Eosinophils % 0 % Basophils % 0 % Neutrophils # 12.5 H (1.3-7.7) k/uL Lymphocytes # 1.0 (1.0-4.8) k/uL Monocytes # 0.9 (0-1.0) k/uL Eosinophils # 0.0 (0-0.7) k/uL Basophils # 0.0 (0-0.2) k/uL Hypochromasia Moderate VBG pH (7.31-7.41) VBG pCO2 (37-51) mmHg VBG HCO3 (24-28) mmol/L Sodium 126 L (137-145) mmol/L Potassium 4.4 (3.5-5.1) mmol/L Chloride 83 L (98-107) mmol/L Carbon Dioxide 29 (22-30) mmol/L Anion Gap 14 mmol/L BUN 62 H (9-20) mg/dL Creatinine 1.20 (0.66-1.25) mg/dL Est GFR (CKD-EPI)AfAm 68 (>60 ml/min/1.73 sqM) Est GFR (CKD-EPI)NonAf 59 (>60 ml/min/1.73 sqM) Glucose 489 H* (74-99) mg/dL POC Glucose (mg/dL) 435 H (75-99) mg/dL POC Glu Piercing Mill Operator ID Lavere, Ali Plasma Lactic Acid Laan (0.7-2.0) mmol/L Calcium 8.5 (8.4-10.2) mg/dL Phosphorus 3.8 (2.5-4.5) mg/dL Magnesium 1.8 (1.6-2.3) mg/dL Total Bilirubin 0.6 (0.2-1.3) mg/dL AST 28 (17-59) U/L ALT 36 (21-72) U/L Alkaline Phosphatase 86 (38-126) U/L Total Protein 6.4 (6.3-8.2) g/dL Albumin 3.1 L (3.5-5.0) g/dL Acetone, Qual Negative (Negative) 09/20/17 09/20/17 Range/Units 20:32 20:32 WBC (3.8-10.6) k/uL RBC (4.30-5.90) m/uL Hgb (13.0-17.5) gm/dL Hct (39.0-53.0) % MCV (80.0-100.0) fL MCH (25.0-35.0) pg MCHC (31.0-37.0) g/dL RDW (11.5-15.5) % Plt Count (150-450) k/uL Neutrophils % % Lymphocytes % % Monocytes % % Eosinophils % % Basophils % % Neutrophils # (1.3-7.7) k/uL Lymphocytes # (1.0-4.8) k/uL Monocytes # (0-1.0) k/uL Eosinophils # (0-0.7) k/uL Basophils # (0-0.2) k/uL Hypochromasia VBG pH 7.51 H (7.31-7.41) VBG pCO2 39 (37-51) mmHg VBG HCO3 31 H (24-28) mmol/L Sodium (137-145) mmol/L Potassium (3.5-5.1) mmol/L Chloride (98-107) mmol/L Carbon Dioxide (22-30) mmol/L Anion Gap mmol/L BUN (9-20) mg/dL Creatinine (0.66-1.25) mg/dL Est GFR (CKD-EPI)AfAm (>60 ml/min/1.73 sqM) Est GFR (CKD-EPI)NonAf (>60 ml/min/1.73 sqM) Glucose (74-99) mg/dL POC Glucose (mg/dL) (75-99) mg/dL POC Glu [employer]cing [employer] Operator ID Plasma Lactic Acid Alan 1.5 (0.7-2.0) mmol/L Calcium (8.4-10.2) mg/dL Phosphorus (2.5-4.5) mg/dL Magnesium (1.6-2.3) mg/dL Total Bilirubin (0.2-1.3) mg/dL AST (17-59) U/L ALT (21-72) U/L Alkaline Phosphatase (38-126) U/L Total Protein (6.3-8.2) g/dL Albumin (3.5-5.0) g/dL Acetone, Qual (Negative) - Radiology Data Radiology results: report reviewed (Chest x-rays negative for acute disease), image reviewed Disposition Clinical Impression: Fever, Hyperglycemia, Weakness, Hyponatremia, Acute exacerbation of chronic obstructive airways disease, Dehydration Disposition: ADMITTED IP TO THIS HOSP Condition: Fair Is patient prescribed a controlled substance at d/c from ED?: No
[2017-09-20 20:36] LABS: Glucose,Whole Blood 435 mg/dL (75-99)
[2017-09-20 20:49] LABS: Basophils % (A) 0 %; Eosinophils % (A) 0 %; HCT 38.1 % (39.0-53.0); HGB 11.9 gm/dL (13.0-17.5); Hypochromasia Moderate; Lymphocytes % (A) 7 %; MCH 25.7 pg (25.0-35.0); MCHC 31.2 g/dL (31.0-37.0); MCV 82.3 fL (80.0-100.0); Mean Platelet Volume 7.5; Monocytes # (A) 0.9 k/uL (0-1.0); Monocytes % (A) 6 %; Neutrophils # (A) 12.5 k/uL (1.3-7.7); Neutrophils % (A) 86 %; Platelet Count 302 k/uL (150-450); RBC 4.63 m/uL (4.30-5.90); RDW 15.9 % (11.5-15.5); WBC 14.6 k/uL (3.8-10.6)
[2017-09-20 21:07] LABS: ALT 36 U/L (21-72); AST 28 U/L (17-59); Albumin 3.1 g/dL (3.5-5.0); Alkaline Phosphatase 86 U/L (38-126); Anion Gap 14 mmol/L; Blood Urea Nitrogen 62 mg/dL (9-20); Calcium 8.5 mg/dL (8.4-10.2); Carbon Dioxide 29 mmol/L (22-30); Chloride 83 mmol/L (98-107); Magnesium 1.8 mg/dL (1.6-2.3); Phosphorus 3.8 mg/dL (2.5-4.5); Potassium 4.4 mmol/L (3.5-5.1); Sodium 126 mmol/L (137-145); Total Bilirubin 0.6 mg/dL (0.2-1.3); Total Protein 6.4 g/dL (6.3-8.2)
[2017-09-20 21:09] LABS: VBG PH 7.51 (7.31-7.41)
[2017-09-20 21:11] LABS: Glucose 489 mg/dL (74-99)
[2017-09-20] MEDS ORDERED: PIPERACILLIN-TAZOBACTAM 3.375 GM in DEXTROSE/WATER 1 50ML.BAG IVPB STA (21:18)
[2017-09-20] MEDS ORDERED: IPRATROPIUM-ALBUTEROL 3 ML NEB INHALATION STA (21:20)
--- NOTE | 2017-09-20 21:24 | XR ---
EXAMINATION: XR chest 3V DATE AND TIME: 09/20/2017 8:51 PM ORDERING PROVIDER: Theron Michaud DO CLINICAL INDICATION: Pain , sweats and fever TECHNIQUE: PA and 2 lateral COMPARISON: 09/12/2017 DESCRIPTION: The frontal radiograph is rotated. Given this factor, the lungs appear to be clear. The pleural spaces are negative. The cardiac silhouette is mildly enlarged, unchanged. The mediastina l and pleural silhouettes are unremarkable. The skeletal structures are intact without focal findings. The soft tissues are unremarkable. IMPRESSION: NO DEFINITE ACUTE PROCESS.
[2017-09-21] MEDS ORDERED: METHADONE 5 MG TAB ONE ×2 (03:01→03:05)
[2017-09-21 03:50] LABS: Glucose,Whole Blood 372 mg/dL (75-99)
[2017-09-21 04:01] LABS: Glucose,Whole Blood 368 mg/dL (75-99)
[2017-09-21 04:01] LABS: Glucose,Whole Blood 462 mg/dL (75-99)
[2017-09-21 04:01] LABS: Glucose,Whole Blood 349 mg/dL (75-99)
[2017-09-21 04:05] LABS: Glucose,Whole Blood 372 mg/dL (75-99)
[2017-09-21 04:43] LABS: Glucose,Whole Blood 299 mg/dL (75-99)
[2017-09-21 05:15] LABS: Glucose,Whole Blood 223 mg/dL (75-99)
[2017-09-21 05:27] VITALS: BMI 28.3
[2017-09-21 06:02] LABS: Appearance,Urine Clear (Clear); Bilirubin,Urine Negative (Negative); Blood,Urine Small (Negative); Color,Urine Yellow; Glucose,Urine (UA) 4+ (Negative); Ketones,Urine Negative (Negative); Leukocyte Esterase,Urine Large (Negative); Mucus,Urine Rare /hpf; Nitrite,Urine Negative (Negative); PH, Urine 6.5 (5.0-8.0); Protein,Urine Negative (Negative); RBC,Urine 3 /hpf (0-5); Specific Gravity,Urine 1.007 (1.001-1.035); Squamous Epithelial Cell,Urine <1 /hpf (0-4); Urobilinogen,Urine <2.0 mg/dL (<2.0); WBC,Urine 33 /hpf (0-5)
[2017-09-21] MEDS: SODIUM CHLORIDE 0.9% 1,000 ML IV SCH ×2 (06:14→06:40)
[2017-09-21 06:16] LABS: Basophils % (A) 0 %; Eosinophils # (A) 0.1 k/uL (0-0.7); Eosinophils % (A) 1 %; HCT 35.3 % (39.0-53.0); HGB 10.8 gm/dL (13.0-17.5); Hypochromasia Moderate; Lymphocytes # (A) 1.6 k/uL (1.0-4.8); Lymphocytes % (A) 11 %; MCHC 30.5 g/dL (31.0-37.0); MCV 81.9 fL (80.0-100.0); Mean Platelet Volume 7.2; Monocytes # (A) 0.8 k/uL (0-1.0); Monocytes % (A) 6 %; Neutrophils # (A) 12.2 k/uL (1.3-7.7); Neutrophils % (A) 81 %; Platelet Count 271 k/uL (150-450); RBC 4.32 m/uL (4.30-5.90); RDW 15.8 % (11.5-15.5)
[2017-09-21] MEDS ORDERED: INSULIN REGULAR 100 UNIT in SODIUM CHLORIDE 0.9% 100 ML IV SCH (06:30)
[2017-09-21 06:34] LABS: Glucose,Whole Blood 118 mg/dL (75-99)
[2017-09-21] MEDS: PIPERACILLIN-TAZOBACTAM 3.375 GM in DEXTROSE/WATER 1 50ML.BAG IVPB SCH ×3 (06:40→21:58)
[2017-09-21 06:42] LABS: Calcium 8.6 mg/dL (8.4-10.2)
[2017-09-21 06:52] LABS: Potassium 2.9 mmol/L (3.5-5.1)
[2017-09-21] MEDS ORDERED: INSULIN ASPART 100 UNIT/ML 1 ML 10 ML VIAL SQ SCH (07:30)
[2017-09-21] MEDS ORDERED: INSULIN ASPART 100 UNIT/ML 1 ML 10 ML VIAL SQ ONE (07:30)
[2017-09-21] MEDS ORDERED: Potassium Replacement Protocol 1 EACH MISC MISCELLANE PRN ×2 (07:39→13:00)
[2017-09-21] MEDS: IPRATROPIUM-ALBUTEROL 3 ML NEB INHALATION SCH ×4 (08:11→19:27)
[2017-09-21] MEDS: POTASSIUM CHLORIDE ER 20 MEQ TAB.ER PO SCH ×3 (08:40→11:15)
[2017-09-21] MEDS ORDERED: PANTOPRAZOLE 40 MG/10 ML VIAL IV SCH (09:00)
[2017-09-21] MEDS: METHADONE 5 MG TAB PO PRN ×2 (09:15→17:07)
[2017-09-21 11:40] LABS: Glucose,Whole Blood 185 mg/dL (75-99)
[2017-09-21] MEDS: INSULIN ASPART 100 UNIT/ML 1 ML 10 ML VIAL SQ SCH ×5 (12:16→22:00)
[2017-09-21] MEDS ORDERED: NON-FORMULARY DRUG (Warfarin Sodium [Coumadin] 4 MG) PO PRN (12:54)
[2017-09-21] MEDS ORDERED: POLYETHYLENE GLYCOL 3350 17 GM POWD.PACK PO PRN (13:02)
[2017-09-21] MEDS: METHADONE 5 MG TAB PO SCH ×2 (13:13→21:57)
[2017-09-21] MEDS: POTASSIUM CHLORIDE 10 MEQ in WATER FOR INJECTION 1 100ML.BAG IVPB SCH (14:06)
[2017-09-21 14:07] LABS: INR 2.5 (<1.2); Prothrombin Time 22.5 sec (9.0-12.0)
[2017-09-21] MEDS ORDERED: VANCOMYCIN IV PER PHARMACY 1 EACH MISC MISCELLANE PRN (14:10)
[2017-09-21] MEDS: HYDROcodone/APAP 7.5-325MG 1 EACH TAB PO PRN (14:48)
[2017-09-21] MEDS: TRIAMCINOLONE 0.1% CREAM 80 GM TUBE TOPICAL SCH ×2 (14:50→21:58)
[2017-09-21] MEDS: SPIRONOLACTONE 25 MG TAB PO SCH (14:50)
[2017-09-21] MEDS: PANTOPRAZOLE 40 MG TABLET PO SCH (14:51)
[2017-09-21] MEDS: METOPROLOL TARTRATE 50 MG TAB PO SCH (14:51)
[2017-09-21] MEDS: FUROSEMIDE 80 MG TAB PO SCH (14:51)
--- NOTE | 2017-09-21 14:54 | P.HPIM ---
History of Present Illness 72-year-old male was sent in from a subacute rehabilitation because of limited blood sugars above 500. Patient systemic steroids from his last discharge. Which may have contributed to his elevated blood sugars. Patient is also found to be septic with fevers source is not clear later I get the blood cultures is positive for gram-positive cocci. Patient is already on Zosyn and vancomycin to prevent blood cultures will be obtained today and tomorrow morning patient is complaining of severe low back pain patient had previous back to my obtaining CAT scan of the lumbar spine. Patient is bit hypotensive secondary to sepsis. Patient does have a heart failure was on IV Lasix drip. His ejection fraction was 45% patient is fairly euvolemic mildly hypokalemic with the because his heart failure I'm not starting on any IV fluids patient will be resumed on his diuretic therapy starting tomorrow 8 for his vital signs stable stable. Elevated blood sugars are secondary to prednisone as well as sepsis contributing to it. Patient denied dysuria patient was having the upper GI symptoms like nausea vomiting felt like he may have some stomach flu chest x- ray did not show any pneumonic process patient denied any cough ration and dysuria urine is minimally abnormal. Review of Systems REVIEW OF SYSTEMS: CONSTITUTIONAL: As mentioned above HEENT: No recent visual problems or hearing problems. Denied any sore throat. CARDIOVASCULAR: No chest pain, orthopnea, PND, no palpitations, no syncope. PULMONARY: No shortness of breath, no cough, no hemoptysis. GASTROINTESTINAL: As mentioned above no abdominal pain NEUROLOGICAL: No headaches, no weakness, no numbness. HEMATOLOGICAL: Denies any bleeding or petechiae. GENITOURINARY: Denies any burning micturition, frequency, or urgency. MUSCULOSKELETAL/RHEUMATOLOGICAL: Denies any joint pain, swelling, or any muscle pain. Patient is comparing of back pain ENDOCRINE: Denies any polyuria or polydipsia. The rest of the 14-point review of systems is negative. 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 Past Anesthesia/Blood Transfusion Reactions: No Reported Reaction Date of Last Stent Placement:: 2001 Past Psychological History: Anxiety, Depression Additional Psychological History / Comment(s): Pt currently at [facility] for rehab. He has been getting up with a walker. Smoking Status: Former smoker Past Alcohol Use History: None Reported Additional Past Alcohol Use History / Comment(s): Pt started smoking in 1957 and quit in 1989 Past Drug Use History: None Reported - Past Family History Mother Family Medical History: No Reported History Father Family Medical History: Cancer Additional Family Medical History / Comment(s): Father had prostrate cancer. Medications and Allergies Home Medications Medication Instructions Recorded Confirmed Type Omeprazole [PriLOSEC] 20 mg PO HS PRN 10/10/16 09/20/17 History Triamcinolone 0.1% Cream [Kenalog] 1 applic TOPICAL BID 07/08/17 09/20/17 History INSULIN LISPRO (HumaLOG) [humaLOG] See Protocol SQ ACHS 08/07/17 09/20/17 History INSULIN LISPRO (humaLOG) [humaLOG] 5 units SQ PC-TID@,,08/07/17 09/20/17 History Sacubitril/Valsartan [Entresto 24 1 tab PO BID@0800,199908/07/17 09/20/17 History mg-26 mg Tablet] Furosemide [Lasix] 80 mg PO BID@0800,159909/04/17 09/20/17 History L.acidoph,Paracasei, B.lactis 1 cap PO BID@0800,1600 09/04/17 09/20/17 History [Probiotic] Metoprolol Tartrate [Lopressor] 100 mg PO BID@0800,1600 09/04/17 09/20/17 History Potassium Chloride [Klor-Con 20] 20 meq PO BID@0800,1600 09/04/17 09/20/17 History Budesonide [Pulmicort] 0.5 mg INHALATION RT-BID nebu 09/13/17 09/20/17 Rx Methadone [Dolophine] 5 mg PO Q8H #9 tab 09/13/17 09/20/17 Rx Metolazone [Zaroxolyn] 2.5 mg PO DAILY #1 tablet 09/13/17 09/20/17 Rx Spironolactone [Aldactone] 25 mg PO DAILY tab 09/13/17 09/20/17 Rx Ipratropium-Albuterol Nebulize 3 ml INHALATION RT-Q4H PRN 09/20/17 09/20/17 History [Duoneb 0.5 mg-3 mg/3 ml Soln] Omeprazole [PriLOSEC] 20 mg PO AC-BID@08,16 09/20/17 09/20/17 History Ondansetron [Zofran] 4 mg PO Q8HR PRN 09/20/17 09/20/17 History Warfarin Sodium [Coumadin] 4 mg PO ONCE PRN 09/20/17 09/20/17 History predniSONE See Taper PO DAILY 09/20/17 09/20/17 History Allergies Allergy/AdvReac Type Severity Reaction Status Date / Time Sulfa (Sulfonamide Allergy Rash/Hives Verified 09/20/17 20:17 Antibiotics) Physical Exam Vitals: Vital Signs Temp Pulse Pulse Resp BP BP Pulse Ox 09/21/17 12:00 97.2 F L 91 20 95/51 98 09/21/17 11:34 78 09/21/17 11:24 76 09/21/17 08:25 80 09/21/17 08:15 80 09/21/17 08:00 97.0 F L 90 20 108/50 95 09/21/17 04:00 98.3 F 89 18 111/56 95 09/21/17 00:10 98.9 F 94 18 125/64 96 09/20/17 21:58 90 09/20/17 21:53 88 09/20/17 20:15 101.1 F H 65 18 123/63 96 Intake and Output 09/20/17 09/21/17 09/21/17 22:59 06:59 14:59 Intake Total 1200 200 Output Total 600 400 Balance 600 -200 Intake: Intake, IV Titration 1200 Amount Sodium Chloride 0.9% 1, 1200 000 ml @ 150 mls/hr IV . Q6H40M [facility] Rx#:[id number] Oral 200 Output: Urine 600 400 Other: Voiding Method Urinal Weight 97.5 kg 97.5 kg PHYSICAL EXAMINATION: GENERAL: The patient is alert and oriented x3, not in any acute distress. Well developed, well nourished. HEENT: Pupils are round and equally reacting to light. EOMI. No scleral icterus. No conjunctival pallor. Normocephalic, atraumatic. No pharyngeal erythema. No thyromegaly. CARDIOVASCULAR: S1 and S2 present. No murmurs, rubs, or gallops. PULMONARY: Chest is clear to auscultation, no wheezing or crackles. ABDOMEN: Soft, nontender, nondistended, normoactive bowel sounds. No palpable organomegaly. MUSCULOSKELETAL: No joint swelling or deformity. EXTREMITIES: No cyanosis, clubbing, or pedal edema. NEUROLOGICAL: Gross neurological examination did not reveal any focal deficits. SKIN: No rashes. Results CBC & Chem 7: 09/21/17 05:26 09/21/17 05:26 Labs: Abnormal Lab Results - Last 24 Hours (Table) 09/20/17 09/20/17 09/20/17 Range/Units 20:12 20:12 20:21 WBC 14.6 H (3.8-10.6) k/uL Hgb 11.9 L (13.0-17.5) gm/dL Hct 38.1 L (39.0-53.0) % MCHC (31.0-37.0) g/dL RDW 15.9 H (11.5-15.5) % Neutrophils # 12.5 H (1.3-7.7) k/uL PT (9.0-12.0) sec INR (<1.2) VBG pH (7.31-7.41) VBG HCO3 (24-28) mmol/L Sodium 126 L (137-145) mmol/L Potassium (3.5-5.1) mmol/L Chloride 83 L (98-107) mmol/L Carbon Dioxide (22-30) mmol/L BUN 62 H (9-20) mg/dL Glucose 489 H* (74-99) mg/dL POC Glucose (mg/dL) 435 H (75-99) mg/dL Albumin 3.1 L (3.5-5.0) g/dL Urine Glucose (UA) (Negative) Urine Blood (Negative) Ur Leukocyte Esterase (Negative) Urine WBC (0-5) /hpf Urine Mucus (None) /hpf 09/20/17 09/20/17 09/20/17 Range/Units 20:32 21:50 23:43 WBC (3.8-10.6) k/uL Hgb (13.0-17.5) gm/dL Hct (39.0-53.0) % MCHC (31.0-37.0) g/dL RDW (11.5-15.5) % Neutrophils # (1.3-7.7) k/uL PT (9.0-12.0) sec INR (<1.2) VBG pH 7.51 H (7.31-7.41) VBG HCO3 31 H (24-28) mmol/L Sodium (137-145) mmol/L Potassium (3.5-5.1) mmol/L Chloride (98-107) mmol/L Carbon Dioxide (22-30) mmol/L BUN (9-20) mg/dL Glucose (74-99) mg/dL POC Glucose (mg/dL) 372 H (75-99) mg/dL Albumin (3.5-5.0) g/dL Urine Glucose (UA) 4+ H (Negative) Urine Blood Small H (Negative) Ur Leukocyte Esterase Large H (Negative) Urine WBC 33 H (0-5) /hpf Urine Mucus Rare H (None) /hpf 09/21/17 09/21/17 09/21/17 Range/Units 01:08 02:55 03:28 WBC (3.8-10.6) k/uL Hgb (13.0-17.5) gm/dL Hct (39.0-53.0) % MCHC (31.0-37.0) g/dL RDW (11.5-15.5) % Neutrophils # (1.3-7.7) k/uL PT (9.0-12.0) sec INR (<1.2) VBG pH (7.31-7.41) VBG HCO3 (24-28) mmol/L Sodium (137-145) mmol/L Potassium (3.5-5.1) mmol/L Chloride (98-107) mmol/L Carbon Dioxide (22-30) mmol/L BUN (9-20) mg/dL Glucose (74-99) mg/dL POC Glucose (mg/dL) 462 H 368 H 349 H (75-99) mg/dL Albumin (3.5-5.0) g/dL Urine Glucose (UA) (Negative) Urine Blood (Negative) Ur Leukocyte Esterase (Negative) Urine WBC (0-5) /hpf Urine Mucus (None) /hpf 09/21/17 09/21/17 09/21/17 Range/Units 04:03 04:34 05:05 WBC (3.8-10.6) k/uL Hgb (13.0-17.5) gm/dL Hct (39.0-53.0) % MCHC (31.0-37.0) g/dL RDW (11.5-15.5) % Neutrophils # (1.3-7.7) k/uL PT (9.0-12.0) sec INR (<1.2) VBG pH (7.31-7.41) VBG HCO3 (24-28) mmol/L Sodium (137-145) mmol/L Potassium (3.5-5.1) mmol/L Chloride (98-107) mmol/L Carbon Dioxide (22-30) mmol/L BUN (9-20) mg/dL Glucose (74-99) mg/dL POC Glucose (mg/dL) 372 H 299 H 223 H (75-99) mg/dL Albumin (3.5-5.0) g/dL Urine Glucose (UA) (Negative) Urine Blood (Negative) Ur Leukocyte Esterase (Negative) Urine WBC (0-5) /hpf Urine Mucus (None) /hpf 09/21/17 09/21/17 09/21/17 Range/Units 05:26 05:26 05:26 WBC 15.0 H (3.8-10.6) k/uL Hgb 10.8 L (13.0-17.5) gm/dL Hct 35.3 L (39.0-53.0) % MCHC 30.5 L (31.0-37.0) g/dL RDW 15.8 H (11.5-15.5) % Neutrophils # 12.2 H (1.3-7.7) k/uL PT 22.5 H (9.0-12.0) sec INR 2.5 H (<1.2) VBG pH (7.31-7.41) VBG HCO3 (24-28) mmol/L Sodium 132 L (137-145) mmol/L Potassium 2.9 L* (3.5-5.1) mmol/L Chloride 88 L (98-107) mmol/L Carbon Dioxide 34 H (22-30) mmol/L BUN 51 H (9-20) mg/dL Glucose 179 H (74-99) mg/dL POC Glucose (mg/dL) (75-99) mg/dL Albumin (3.5-5.0) g/dL Urine Glucose (UA) (Negative) Urine Blood (Negative) Ur Leukocyte Esterase (Negative) Urine WBC (0-5) /hpf Urine Mucus (None) /hpf 09/21/17 09/21/17 Range/Units 06:33 11:38 WBC (3.8-10.6) k/uL Hgb (13.0-17.5) gm/dL Hct (39.0-53.0) % MCHC (31.0-37.0) g/dL RDW (11.5-15.5) % Neutrophils # (1.3-7.7) k/uL PT (9.0-12.0) sec INR (<1.2) VBG pH (7.31-7.41) VBG HCO3 (24-28) mmol/L Sodium (137-145) mmol/L Potassium (3.5-5.1) mmol/L Chloride (98-107) mmol/L Carbon Dioxide (22-30) mmol/L BUN (9-20) mg/dL Glucose (74-99) mg/dL POC Glucose (mg/dL) 118 H 185 H (75-99) mg/dL Albumin (3.5-5.0) g/dL Urine Glucose (UA) (Negative) Urine Blood (Negative) Ur Leukocyte Esterase (Negative) Urine WBC (0-5) /hpf Urine Mucus (None) /hpf Microbiology - Last 24 Hours (Table) 09/20/17 20:32 Blood Culture Gram Stain - Preliminary Blood 09/20/17 20:32 Blood Culture - Final Blood 09/20/17 21:50 Urine Culture - Preliminary Urine,Voided Thrombosis Risk Factor Assmnt - Choose All That Apply Any of the Below Risk Factors Present?: Yes Each Factor Represents 1 point: Abnormal pulmonary function (COPD), Heart failure (<1month), Medical pt on bed rest, Obesity (BMI >25), Swollen legs ( current) Other Risk Factors: Yes Each Risk Factor Represents 3 Points: Age 75 years or older Thrombosis Risk Factor Assessment Total Risk Factor Score: 8 Thrombosis Risk Factor Assessment Level: High Risk Assessment and Plan Plan: -Sepsis and bacteremia: Etiology and source is unknown patient will be on vancomycin and Zosyn. -Back pain chronic low back pain: Will obtain a CAT scan of the lower back. -Uncontrolled blood sugars patient was on IV insulin with Improved blood sugars patient will be started on 10 units of Lantus tonight and 5 units with each meal. Uncontrolled blood sugars, elevated blood sugars are secondary to sepsis and systemic steroids. -Congestive heart failure chronic systolic as well diastolic dysfunction EF of 40-45% patient is euvolemic not in acute exacerbation Type 2 diabetes mellitus -Atrial fibrillation: Rate controlled therapeutic on Coumadin same dose of Coumadin will be continued monitored INR. -Fibromyalgia -Hypertension -Hyperlipidemia -COPD without any acute exacerbation patient will be continued on 10 mg of steroids which probably can be discontinued tomorrow or day after
[2017-09-21] MEDS ORDERED: VANCOMYCIN 1,750 MG in SODIUM CHLORIDE 0.9% 500 ML IVPB ONE (15:00)
[2017-09-21 16:26] LABS: Glucose,Whole Blood 341 mg/dL (75-99)
--- NOTE | 2017-09-21 16:28 | CT ---
EXAMINATION TYPE: CT thor lumbar spine w con DATE OF EXAM: 09/21/2017 COMPARISON: Chest radiograph dated 09/20/2017 HISTORY: Severe back pain CT DLP: 2226.9 mGycm Automated exposure control for dose reduction was used. CONTRAST: Performed with IV Contrast, patient injected with 80 mL of Isovue 300. FINDINGS: There is an age indeterminant compression deformity of the L1 vertebral body. There is approximately 1 mm retropulsion of the posterior superior and posterior inferior endplate minimally impressing upon the ventral subarachnoid space. Mid vertebral body height loss is approximately 50%, however portion s of the anterior superior endplate are maintained in height. The remainder of the thoracolumbar vert ebral bodies maintain normal vertebral body heights and alignment. Multilevel disc desiccation is seen as there is calcification within the T7-T8 and T8-T9 intervertebr al discs and there is vacuum disc disease at L4-L5. Postsurgical changes of the posterior elements of L4-L5 are noted. Multilevel moderate degenerative changes of the thoracolumbar spine are displayed a s anterior osteophytes, intervertebral disc space narrowing, endplate sclerosis and facet arthropathy . There is some motion artifact through the upper thoracic spine noted. Evaluation of the spinal canal is limited on CT, however mild spinal canal stenosis is seen at L1 and L3-L4. Evaluation of the neura l foramen is also limited on CT, however there appears to be at least mild neural foraminal narrowing at L3-L4 and L4-L5 on the left and at least moderate, likely severe neural foraminal narrowing at L4 -L5 on the right. No gross evidence of neural foraminal narrowing within the thoracic spine although this would be much better evaluated with MRI. Partial visualization of moderate coronary artery calcifications are seen. There is extensive respira tory artifact, however there appears to be mild centrilobular emphysematous change. Near fluid attenu ated 0.9 cm left midpole renal lesion although is too small to accurately characterize is favored to represent a cyst with pseudoenhancement. There is thickening diffusely of the left adrenal gland with out focal nodularity. This likely relates to adrenal gland hyperplasia. There are calcific atheromato us changes are seen intra-abdominal aorta and its branches. IMPRESSION: 1. AGE INDETERMINANT COMPRESSION DEFORMITY OF THE L1 VERTEBRAL BODY WITH HEIGHT LOSS OF APPROXIMATELY 50% AND 1 MM RETROPULSION. CORRELATE FOR POINT TENDERNESS THIS PATIENT DESCRIBES LOW BACK PAIN. M RI COULD BE PERFORMED TO EVALUATE FOR BONE MARROW EDEMA AND BETTER DETERMINE ACUITY. THERE IS RESULTA NT AT LEAST MILD SPINAL CANAL STENOSIS. 2. MULTILEVEL DISC DESICCATION AND DEGENERATIVE CHANGES OF THE THORACOLUMBAR SPINE MOST PRONOUNCED AT T7-T8, T8-T9, L3-L4, AND L4-L5. THIS RESULTS IN AT LEAST MILD SPINAL CANAL STENOSIS AT L3-L4 AND LIK HEMA SEVERE NEURAL FORAMINAL NARROWING AT L4-L5 ON THE RIGHT. POSTOPERATIVE CHANGES ARE ALSO SEEN IN L 4-L5 ON THE RIGHT. 3. INDETERMINATE LEFT RENAL LESION ALTHOUGH FAVORED TO REPRESENT A CYST WITH PSEUDOENHANCEMENT.
[2017-09-21] MEDS: BUDESONIDE 0.5 MG/2 ML NEBU INHALATION SCH (19:27)
[2017-09-21 20:59] LABS: Glucose,Whole Blood 340 mg/dL (75-99)
[2017-09-21] MEDS: SACUBITRIL/VALSARTAN 24 MG-26 MG TABLET PO SCH (21:57)
[2017-09-21] MEDS: INSULIN DETEMIR 100 UNIT/ML 10 ML VIAL SQ SCH (21:58)
[2017-09-21] MEDS: ACETAMINOPHEN TAB 325 MG TAB PO PRN (21:59)
[2017-09-22] MEDS: ACETAMINOPHEN TAB 325 MG TAB PO PRN (04:12)
[2017-09-22] MEDS: METHADONE 5 MG TAB PO SCH ×3 (04:13→21:51)
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
[2017-09-22 06:23] LABS: Glucose,Whole Blood 346 mg/dL (75-99)
[2017-09-22 06:38] LABS: INR 3.1 (<1.2); Prothrombin Time 27.4 sec (9.0-12.0)
[2017-09-22 06:57] LABS: Anisocytosis Slight; Basophils % (A) 0 %; Eosinophils % (A) 0 %; HCT 30.3 % (39.0-53.0); Hypochromasia Marked; Lymphocytes % (A) 12 %; MCH 21.9 pg (25.0-35.0); MCHC 30.4 g/dL (31.0-37.0); Mean Platelet Volume 6.1; Microcytosis Moderate; Monocytes # (A) 0.1 k/uL (0-1.0); Monocytes % (A) 1 %; Neutrophils # (A) 7.2 k/uL (1.3-7.7); Neutrophils % (A) 87 %; Platelet Count 291 k/uL (150-450); RBC 4.21 m/uL (4.30-5.90); RDW 16.1 % (11.5-15.5); WBC 8.2 k/uL (3.8-10.6)
[2017-09-22] MEDS: PIPERACILLIN-TAZOBACTAM 3.375 GM in DEXTROSE/WATER 1 50ML.BAG IVPB SCH ×3 (06:59→21:52)
[2017-09-22] MEDS: INSULIN ASPART 100 UNIT/ML 1 ML 10 ML VIAL SQ SCH ×7 (07:00→21:54)
[2017-09-22 07:06] LABS: C Reactive Protein 249.2 mg/L (<10.0)
[2017-09-22] MEDS: HYDROcodone/APAP 7.5-325MG 1 EACH TAB PO PRN ×2 (07:07→16:18)
[2017-09-22 07:14] LABS: Calcium 8.3 mg/dL (8.4-10.2)
[2017-09-22 07:27] LABS: HGB 9.2 gm/dL (13.0-17.5); MCV 72.1 fL (80.0-100.0)
--- NOTE | 2017-09-22 08:47 | US ---
EXAMINATION TYPE: US gallbladder DATE OF EXAM: 09/22/2017 COMPARISON: NONE CLINICAL HISTORY: right upper quadrant pain r/o cholecystitis. ABD pain EXAM MEASUREMENTS: Liver Length: 20.1 cm Gallbladder Wall: 0.1 cm CBD: 0.6 cm Right Kidney: 12.9 x 5.8 x 5.5 cm Pancreas: Obscured by bowel gas Liver: Enlarged by size criteria although overall homogeneous in echotexture. Gallbladder: Only visualized supine, pt unable to roll LLD, possible small "gravel stone" seen on de pendant portion, otherwise appeared wnl Evidence for sonographic Martin's sign: No CBD: wnl Right Kidney: wnl IMPRESSION: Punctate probable solitary calculus within the gallbladder dependently. The patient was u nable to roll to determine if this was mobile. No sonographic evidence of acute cholecystitis.
[2017-09-22] MEDS: BUDESONIDE 0.5 MG/2 ML NEBU INHALATION SCH ×2 (08:50→20:31)
[2017-09-22] MEDS ORDERED: predniSONE 20 MG TAB PO SCH (09:00)
[2017-09-22] MEDS: METOPROLOL TARTRATE 50 MG TAB PO SCH ×2 (10:05→15:50)
[2017-09-22] MEDS: PANTOPRAZOLE 40 MG TABLET PO SCH ×2 (10:05→15:50)
[2017-09-22] MEDS: FUROSEMIDE 80 MG TAB PO SCH ×2 (10:05→15:50)
[2017-09-22] MEDS: SPIRONOLACTONE 25 MG TAB PO SCH (10:05)
[2017-09-22] MEDS: SACUBITRIL/VALSARTAN 24 MG-26 MG TABLET PO SCH ×2 (10:05→21:51)
[2017-09-22] MEDS: METOLAZONE 2.5 MG TAB PO SCH (10:06)
[2017-09-22] MEDS: VANCOMYCIN 1,500 MG in SODIUM CHLORIDE 0.9% 250 ML IVPB SCH (10:06)
[2017-09-22] MEDS: predniSONE 10 MG TAB PO SCH (10:06)
[2017-09-22] MEDS: TRIAMCINOLONE 0.1% CREAM 80 GM TUBE TOPICAL SCH ×2 (10:07→21:52)
[2017-09-22] MEDS ORDERED: TRIMETHOBENZAMIDE 300 MG CAP PO PRN (10:20)
[2017-09-22] MEDS: IPRATROPIUM-ALBUTEROL 3 ML NEB INHALATION SCH ×3 (11:33→20:31)
[2017-09-22 11:56] LABS: Glucose,Whole Blood 338 mg/dL (75-99)
[2017-09-22 12:14] LABS: Hemoglobin A1C 8.7 % (4.0-6.0)
[2017-09-22 13:04] LABS: Erythrocyte Sedimentation Rate 14 mm/hr (0-15)
[2017-09-22 17:11] LABS: Glucose,Whole Blood 291 mg/dL (75-99)
[2017-09-22] MEDS ORDERED: WARFARIN 5 MG TAB PO ONE (18:00)
[2017-09-22 21:01] LABS: Glucose,Whole Blood 286 mg/dL (75-99)
[2017-09-22] MEDS: INSULIN DETEMIR 100 UNIT/ML 10 ML VIAL SQ SCH (21:54)
--- NOTE | 2017-09-22 22:40 | PN ---
PROGRESS NOTE DATE OF SERVICE: 09/22/2017. REASON FOR FOLLOWUP: Staph aureus bacteremia, question possible diskitis. INTERVAL HISTORY: The patient's overall fever pattern has improved; however, still has a low-grade fever of 100.1. He is still complaining of pain to the lower back area, dull aching to sharp, 6/10-7/10 and no radiation. No weakness. No leg and no bowel or bladder problems. EXAMINATION: Blood pressure is 136/86, pulse of 90, temperature 100.1. He is 95% on 2L nasal cannula. General description is an elderly male, lying in bed in no distress. RESPIRATORY SYSTEM: Unlabored breathing. Clear to auscultation anteriorly. HEART: S1, S2. Regular rate and rhythm. ABDOMEN: Soft, no tenderness. LABS: Hemoglobin is 9, white count 8.2. BUN of 15, creatinine is 1.24. Blood culture with Staph aureus. DIAGNOSTIC IMPRESSION AND PLAN: Patient with sepsis and Staphylococcus aureus bacteremia. Source is likely lumbar diskitis. We will obtain an MRI of the lumbosacral spine with contrast to better define underlying pathology. The patient is currently on vancomycin. Will continue while waiting for the culture to finalize. Continue supportive care. MMODL / IJN: [id number] /
[2017-09-23] MEDS: VANCOMYCIN 1,500 MG in SODIUM CHLORIDE 0.9% 250 ML IVPB SCH (00:34)
--- NOTE | 2017-09-23 00:41 | P.PN ---
Subjective 72-year-old male was sent in from a subacute rehabilitation because of limited blood sugars above 500. Patient systemic steroids from his last discharge. Which may have contributed to his elevated blood sugars. Patient is also found to be septic with fevers source is not clear later I get the blood cultures is positive for gram-positive cocci. Patient is already on Zosyn and vancomycin to prevent blood cultures will be obtained today and tomorrow morning patient is complaining of severe low back pain patient had previous back to my obtaining CAT scan of the lumbar spine. Patient is bit hypotensive secondary to sepsis. Patient does have a heart failure was on IV Lasix drip. His ejection fraction was 45% patient is fairly euvolemic mildly hypokalemic with the because his heart failure I'm not starting on any IV fluids patient will be resumed on his diuretic therapy starting tomorrow 8 for his vital signs stable stable. Elevated blood sugars are secondary to prednisone as well as sepsis contributing to it. Patient denied dysuria patient was having the upper GI symptoms like nausea vomiting felt like he may have some stomach flu chest x- ray did not show any pneumonic process patient denied any cough ration and dysuria urine is minimally abnormal. 09/23/2017 pt presents with sepsis pictuer, with positve BC for staph . pt has negative US of the RUQ with no evidance of acute cholecystitis, pt is still on Abx , ID on the case, MRI will be considered, we will order echo to evaluate heart, UTI with gram negative bacilli in urine , pt is having fever but leukocytosis is resolvedd . INR is trending up to 3.1 , monitor INR closely , no signs of bleeding , coumadin on hold . Na 129 Objective - Vital Signs Vital signs: Vital Signs Temp 100.1 F H 09/22/17 20:00 Pulse 90 09/22/17 20:00 Resp 20 09/22/17 20:00 BP 126/86 09/22/17 20:00 Pulse Ox 95 09/22/17 20:00 Intake & Output 09/22/17 09/22/17 09/23/17 06:59 18:59 06:59 Intake Total 360 Output Total 1300 300 Balance -1300 60 Weight 96.5 kg Intake: Oral 360 Output: Urine 1300 300 Other: Voiding Method Urinal Urinal # Bowel Movements 0 - Exam GENERAL: The patient is alert and oriented x3, not in any acute distress. Well developed, well nourished. HEENT: Pupils are round and equally reacting to light. EOMI. No scleral icterus. No conjunctival pallor. Normocephalic, atraumatic. No pharyngeal erythema. No thyromegaly. CARDIOVASCULAR: S1 and S2 present. No murmurs, rubs, or gallops. PULMONARY: Chest is clear to auscultation, no wheezing or crackles. ABDOMEN: Soft, nontender, nondistended, normoactive bowel sounds. No palpable organomegaly. Small abdominal wall lump close to the umbilicus with a smooth borders and mobile, nontender MUSCULOSKELETAL: No joint swelling or deformity. EXTREMITIES: No cyanosis, clubbing, or pedal edema. NEUROLOGICAL: Gross neurological examination did not reveal any focal deficits. - Labs CBC & Chem 7: 09/22/17 05:32 09/22/17 05:32 Labs: Abnormal Lab Results - Last 24 Hours (Table) 09/22/17 09/22/17 09/22/17 Range/Units 05:32 05:32 05:32 RBC (4.30-5.90) m/uL Hgb (13.0-17.5) gm/dL Hct (39.0-53.0) % MCV (80.0-100.0) fL MCH (25.0-35.0) pg MCHC (31.0-37.0) g/dL RDW (11.5-15.5) % PT 27.4 H (9.0-12.0) sec INR 3.1 H (<1.2) Sodium 129 L (137-145) mmol/L Chloride 87 L (98-107) mmol/L BUN 50 H (9-20) mg/dL Glucose 341 H (74-99) mg/dL POC Glucose (mg/dL) (75-99) mg/dL Hemoglobin A1c 8.7 H (4.0-6.0) % Calcium 8.3 L (8.4-10.2) mg/dL C-Reactive Protein 249.2 H (<10.0) mg/L 09/22/17 09/22/17 09/22/17 Range/Units 05:32 06:21 11:37 RBC 4.21 L (4.30-5.90) m/uL Hgb 9.2 L D (13.0-17.5) gm/dL Hct 30.3 L (39.0-53.0) % MCV 72.1 L D (80.0-100.0) fL MCH 21.9 L (25.0-35.0) pg MCHC 30.4 L (31.0-37.0) g/dL RDW 16.1 H (11.5-15.5) % PT (9.0-12.0) sec INR (<1.2) Sodium (137-145) mmol/L Chloride (98-107) mmol/L BUN (9-20) mg/dL Glucose (74-99) mg/dL POC Glucose (mg/dL) 346 H 338 H (75-99) mg/dL Hemoglobin A1c (4.0-6.0) % Calcium (8.4-10.2) mg/dL C-Reactive Protein (<10.0) mg/L 09/22/17 09/22/17 Range/Units 16:57 20:59 RBC (4.30-5.90) m/uL Hgb (13.0-17.5) gm/dL Hct (39.0-53.0) % MCV (80.0-100.0) fL MCH (25.0-35.0) pg MCHC (31.0-37.0) g/dL RDW (11.5-15.5) % PT (9.0-12.0) sec INR (<1.2) Sodium (137-145) mmol/L Chloride (98-107) mmol/L BUN (9-20) mg/dL Glucose (74-99) mg/dL POC Glucose (mg/dL) 291 H 286 H (75-99) mg/dL Hemoglobin A1c (4.0-6.0) % Calcium (8.4-10.2) mg/dL C-Reactive Protein (<10.0) mg/L Microbiology - Last 24 Hours (Table) 09/21/17 15:06 Blood Culture Gram Stain - Preliminary Blood 09/20/17 21:50 Urine Culture - Preliminary Urine,Voided Gram Neg Bacilli 09/21/17 14:47 Blood Culture Gram Stain - Preliminary Blood 09/21/17 15:06 Blood Culture - Final Blood 09/21/17 14:47 Blood Culture - Final Blood 09/20/17 20:32 Blood Culture Gram Stain - Preliminary Blood Blood Culture - Preliminary Presumptive Staph aureus Assessment and Plan Plan: -Sepsis and bacteremia ( staph): Etiology and source is unknown patient will be on vancomycin and Zosyn. RAYMOND of back is considered. Echo: pending -Back pain chronic low back pain: CAT scan of the lower back. -Uncontrolled blood sugars patient was on IV insulin with Improved blood sugars patient will be started on 10 units of Lantus tonight and 5 units with each meal. Uncontrolled blood sugars, elevated blood sugars are secondary to sepsis and systemic steroids. -Congestive heart failure chronic systolic as well diastolic dysfunction EF of 40-45% patient is euvolemic not in acute exacerbation Type 2 diabetes mellitus -Atrial fibrillation: Rate controlled therapeutic on Coumadin same dose of Coumadin will be continued monitored INR. coumadin on hold -left renal lesion :ordered renal US: pending -Fibromyalgia -Hypertension -Hyperlipidemia -COPD without any acute exacerbation patient will be continued on 10 mg of steroids which probably can be discontinued tomorrow or day after
[2017-09-23] MEDS: HYDROcodone/APAP 7.5-325MG 1 EACH TAB PO PRN ×3 (03:33→15:43)
[2017-09-23 05:57] LABS: Glucose,Whole Blood 258 mg/dL (75-99)
[2017-09-23] MEDS: PIPERACILLIN-TAZOBACTAM 3.375 GM in DEXTROSE/WATER 1 50ML.BAG IVPB SCH (06:27)
[2017-09-23] MEDS: METHADONE 5 MG TAB PO SCH ×3 (06:29→21:26)
[2017-09-23 06:51] LABS: Basophils % (A) 0 %; Eosinophils # (A) 0.2 k/uL (0-0.7); Eosinophils % (A) 1 %; HCT 36.1 % (39.0-53.0); Hypochromasia Slight; Lymphocytes # (A) 0.9 k/uL (1.0-4.8); Lymphocytes % (A) 8 %; MCHC 30.4 g/dL (31.0-37.0); Mean Platelet Volume 7.6; Monocytes # (A) 0.4 k/uL (0-1.0); Monocytes % (A) 4 %; Neutrophils # (A) 9.4 k/uL (1.3-7.7); Neutrophils % (A) 85 %; Platelet Count 278 k/uL (150-450); RBC 4.39 m/uL (4.30-5.90); RDW 15.9 % (11.5-15.5)
[2017-09-23 06:54] LABS: INR 2.6 (<1.2); Prothrombin Time 23.2 sec (9.0-12.0)
[2017-09-23 06:57] LABS: MCV 82.2 fL (80.0-100.0)
[2017-09-23] MEDS: INSULIN ASPART 100 UNIT/ML 1 ML 10 ML VIAL SQ SCH ×7 (07:03→21:25)
[2017-09-23 07:18] LABS: Albumin 2.7 g/dL (3.5-5.0); Calcium 8.4 mg/dL (8.4-10.2); Potassium 3.4 mmol/L (3.5-5.1); Total Bilirubin 0.5 mg/dL (0.2-1.3); Total Protein 5.9 g/dL (6.3-8.2)
--- NOTE | 2017-09-23 08:36 | US ---
EXAMINATION TYPE: US kidneys/renal and bladder DATE OF EXAM: 09/23/2017 COMPARISON: CT CLINICAL HISTORY: left renal lestoin , possible adrenal hyperplasia. Left renal lesion seen on CT EXAM MEASUREMENTS: Right Kidney: 13.3 x 6.9 x 6.2 cm Left Kidney: 12.8 x 6.9 x 6.1 cm Right Kidney: wnl Left Kidney: Cyst mid= 1.3 x 1.1 x 0.9 cm Bladder: wnl Bilateral Jets seen: Only right jet visualized Right kidney is unremarkable. There is a simple appearing 1.3 cm cyst in the upper pole of the left k idney. The bladder is unremarkable. The left ureteral jet was not visualized. IMPRESSION: 1. SIMPLE APPEARING LEFT RENAL CYST. 2. FAILURE TO VISUALIZE A LEFT URETERAL JET.
[2017-09-23] MEDS: FUROSEMIDE 80 MG TAB PO SCH ×3 (08:47→18:51)
[2017-09-23] MEDS: PANTOPRAZOLE 40 MG TABLET PO SCH ×2 (08:49→18:52)
[2017-09-23] MEDS: SACUBITRIL/VALSARTAN 24 MG-26 MG TABLET PO SCH ×3 (08:49→21:25)
[2017-09-23] MEDS: METOPROLOL TARTRATE 50 MG TAB PO SCH ×3 (08:49→18:51)
[2017-09-23] MEDS: SPIRONOLACTONE 25 MG TAB PO SCH ×2 (08:50→13:54)
[2017-09-23] MEDS: METOLAZONE 2.5 MG TAB PO SCH ×2 (08:50→13:54)
[2017-09-23] MEDS: predniSONE 10 MG TAB PO SCH (08:50)
[2017-09-23] MEDS: TRIAMCINOLONE 0.1% CREAM 80 GM TUBE TOPICAL SCH ×2 (08:50→21:30)
[2017-09-23] MEDS: IPRATROPIUM-ALBUTEROL 3 ML NEB INHALATION SCH ×4 (09:00→19:56)
[2017-09-23] MEDS: BUDESONIDE 0.5 MG/2 ML NEBU INHALATION SCH ×2 (09:00→11:49)
[2017-09-23] MEDS: SODIUM CHLORIDE 0.9% 1,000 ML IV SCH (10:30)
[2017-09-23 11:32] LABS: Glucose,Whole Blood 337 mg/dL (75-99)
[2017-09-23] MEDS: POTASSIUM CHLORIDE ER 20 MEQ TAB.ER PO SCH ×2 (11:48→13:52)
--- NOTE | 2017-09-23 12:53 | CONS ---
CONSULTATION Mr. Flores is a 77-year-old male with known history of chronic persistent atrial fibrillation, history of cardiomyopathy, coronary artery disease, who presented to the emergency room with back discomfort and hyperglycemia. Cardiology consultation was requested because of an episode of hypotension. The patient has a chronic back discomfort, was getting worse and had prior surgery on his back in [place]. On presentation, he was febrile and his blood pressure, showed gram-positive cocci. He has chronic dyspnea on exertion, but that has not changed recently. He denies any recent cough. He was not aware of the fever. He denies any dizziness or palpitations. The patient has a prior history of smoking but he stopped quite a while ago. He had a prior stenting of the LAD and attempted cardioversion. He has been diagnosed with COPD and has been seen by Dr. Peterson and Dr. Brumfield during prior admission. His ejection fraction was 35-40%. He had a prior history of stroke. He denies any recent peripheral edema. No dizziness or palpitation. No syncope. MEDICATION: His medications at home include prednisone, Coumadin, spironolactone 25 mg daily and Crestor 25-26 mg twice a day, potassium, Zofran, metoprolol tartrate 100 mg twice a day, Zaroxolyn 2.5 mg daily, insulin, Lasix 80 mg twice a day, and Pulmicort. REVIEW OF SYSTEMS: Respiratory system: He has the dyspnea on exertion, the cough but no recent changes. GI system: No recent GI bleed. No peptic ulcer disease. system: No dysuria or hematuria. Nervous system: No history of stroke or seizure. PHYSICAL EXAMINATION: Blood pressure running in the 120s to 130. He has a couple of readings in the high 90s. Heart rate in the 70s. HEAD: Normocephalic. Eyes sclerae anicteric. Neck: No bruit. Lungs with decreased air exchange with scattered rhonchi. Heart irregularly irregular, S1, S2. No S3 with systolic murmur ejection type heard at the left sternal border. No diastolic murmur. ABDOMEN: Soft, nontender. Extremities: No significant edema. LAB DATA: Lab data revealed EKG, atrial fibrillation with left axis deviation and a borderline interventricular conduction delay. Chest x-ray shows no acute infiltrates. His hemoglobin is 11, white blood cell of 11. INR 2.6. BUN and creatinine 48 and 1.1, potassium 3.4. IMPRESSION: 1. Febrile episodes. The patient has been seen by the Infectious Disease. 2. Transient episode of hypotension, stable. 3. History of ischemic cardiomyopathy with no overt signs of heart failure at this time. 4. History of coronary artery disease status post percutaneous revascularization. 5. Permanent persistent atrial fibrillation, anticoagulated. 6. History of chronic obstructive lung disease. RECOMMENDATION: From the cardiac standpoint, I do not see any active cardiac issues. The patient has been initiated on his Lasix, metoprolol and his Entresto and spironolactone. We will continue present therapy, follow his blood pressure and depending on his progress, further recommendations will be made. Thank you for this consult. We will follow with you. DIVINA / JEFRY: [id number] /
[2017-09-23] MEDS ORDERED: LORazepam 1 MG TAB PO STA (12:55)
[2017-09-23 16:51] LABS: Glucose,Whole Blood 409 mg/dL (75-99)
--- NOTE | 2017-09-23 17:14 | MR ---
EXAMINATION TYPE: MR lumbar spine wo/w con DATE OF EXAM: 09/23/2017 COMPARISON: None HISTORY: LBP, fever, discitis, possible osteomyelitis TECHNIQUE: Multiplanar, multisequence images of the lumbar spine were acquired utilizing 10 mL intravenous Gadav ist gadolinium contrast. FINDINGS: There is a suspicious ill-defined T2 hyperintense epidural crescentic fluid collection that is best seen on axial T1 postcontrast images such as 16 as well as T2 axial image 16. This demonstra ricky peripheral enhancement. There is a chronic compression deformity of the L1 vertebral body with approximately 50% vertebral bonita dy height loss and no evidence of bone marrow edema or abnormal enhancement. There is no significant retropulsion. The remaining vertebral bodies of the lumbar spine maintain normal vertebral body heigh ts and alignment. Small T2/T1 hyperintense vertebral body hemangiomas are seen of L2 and L3. Surgical resection of the posterior elements is noted at L4-L5. Susceptibility artifact from metallic surgical device is also seen at this level. Superficial to this within the subcutaneous tissues at L 4-L5 there are 3 enhancing fluid collections such as on postcontrast T1 sagittal image 8 measuring up to 2.3 cm. Inferior to this there is a smaller 1.2 cm fluid collection and inferior to this there is a smaller 7 mm fluid collection. The largest fluid collection does track upward towards the L3 verte bral body and left paracentrally however there is no significant abnormal enhancement surrounding the superior extent. On T2 fat sat sagittal sequence there is subcutaneous edema and inflammatory fat st randing surrounding these fluid collections. There is very minimal increased signal in the spinous pr ocess of L3, however there is no abnormal enhancement or bone marrow replacing process on T1 to indic ate osteomyelitis. This likely represents minimal reactive edema. L1-L2: Normal disc appearance without desiccation. No herniation, protrusion or disc bulging. No ca nal stenosis is present. Foramina are patent bilaterally. L2-L3: Normal disc appearance without desiccation. No herniation, protrusion or disc bulging. No ca nal stenosis is present. Foramina are patent bilaterally. L3-L4: There is a broad-based disc bulge and facet arthropathy creating minimal bilateral neural fora marva narrowing. No significant spinal canal stenosis. L4-L5: Ligamentum flavum buckling and facet arthropathy are seen in combination with a broad-based di sc bulge resulting in minimal left neural foraminal narrowing and no spinal canal stenosis. Additiona lly there is a right foraminal disc herniation that begins at the lateral recess extending into the f oramen creating moderate right neural foraminal narrowing and slight impression upon the exiting L4 n erve root. L5-S1: Normal disc appearance without desiccation. No herniation, protrusion or disc bulging. No ca nal stenosis is present. Foramina are patent bilaterally. IMPRESSION: 1. Findings are suspicious for epidural abscess extending from L3 to L4 and its left lateral margin w ith mass effect upon the distal thecal sac and nerve roots. This is ill-defined and measures approxim ately 4.8 cm in craniocaudal dimension, 1.3 cm in anterior posterior dimension, and 7 mm in transvers e dimension. 2. There is no evidence of discitis/osteomyelitis. However within the subcutaneous soft tissues overl vinny the L4-L5 postsurgical site there are peripherally enhancing fluid collections (3 in number) wit h the largest measuring up to 2.3 cm. Given the peripheral enhancement there is suspicion for small a bscesses and therefore correlation with white blood cell count and fever recommended. Targeted ultras ound could be performed to assess for hypervascularity and possible percutaneous drainage. 2. Chronic compression deformity of L1 with approximately 50% vertebral body height loss and no signi ficant retropulsion. No bone marrow edema. 3. Multilevel degenerative disc disease with right foraminal disc herniation at L4-L5 impressing upon the exiting nerve root. A Red level critical message alert has been initiated for Luis Peterson via the [employer] System on 09/23/2017 5:08 PM. This message alert has been sent to Luis Peterson via the p references provided by the clinician for the receipt of Radiology Critical Findings. [place] [id number]. Findings were also communicated with nurse Harrison by Dr. Thomas at 17:10 on 09/23/2017.
[2017-09-23] MEDS: NAFCILLIN 2 GM in DEXTROSE 5% IN WATER 50 ML IVPB SCH ×4 (18:52→21:26)
[2017-09-23 20:43] LABS: Glucose,Whole Blood 477 mg/dL (75-99)
[2017-09-23] MEDS ORDERED: INSULIN REGULAR 100 UNIT in SODIUM CHLORIDE 0.9% 100 ML IV SCH (21:15)
[2017-09-23] MEDS: INSULIN DETEMIR 100 UNIT/ML 10 ML VIAL SQ SCH (21:25)
--- NOTE | 2017-09-23 22:47 | PN ---
PROGRESS NOTE DATE OF SERVICE: 09/23/2017 PRESENTING COMPLAINT: Fever. INTERVAL HISTORY: This patient has multiple medical problems, presented at this time with a septic picture. The patient's blood cultures are positive for Staph aureus and urine culture positive for Enterobacter aerogenes. The patient's blood cultures did grow MSSA and Dr. Peterson from [place] did put the patient on nafcillin. The patient's was present in the room. According to her, the patient is feeling a bit better. The patient did tolerate some diet. Lower back pain was better. Sugars have been running a bit on the high side. REVIEW OF SYSTEMS: Done for constitutional, cardiovascular, GI, pulmonary, musculoskeletal; relevant findings as above. CURRENT MEDICATIONS: Reviewed that include IV nafcillin. EXAMINATION: T-max a 100.1, has been pretty much afebrile today. EYES: Pupils equal. Conjunctivae normal. HEENT: External nose and ears normal. Oral cavity normal. NECK: JVD not raised. Mass not palpable. RESPIRATORY: Effort normal. LUNGS: Diminished breath sounds. CARDIOVASCULAR: First and second sounds normal. No edema. ABDOMEN: Soft, nontender. Liver and spleen not palpable. PSYCHIATRY: Alert and oriented x3. Mood and affect a bit anxious-appearing. INVESTIGATIONS: White count 11, hemoglobin 11, INR 2.6. Potassium 3.4. Accu-Cheks 250, 253, 337. Blood cultures growing Staph aureus, MSSA. A lumbar spine MRI showing possible epidural abscess in the region of L3-L4. ASSESSMENT: 1. 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 The patient has had previous surgery done with Dr. Santiago causing blood cultures positive for methicillin-sensitive Staphylococcus aureus, sepsis present on admission. 2. Chronic congestive heart failure from systolic dysfunction, ejection fraction 40%, underlying ischemic heart disease. 3. Persistent atrial fibrillation. 4. Diabetes mellitus type 2, chronically on insulin, uncontrolled with hyperglycemia. 5. Hyperlipidemia. 6. Essential hypertension. 7. Chronic fibromyalgia. 8. Hiatal hernia. 9. 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 10.Herniated disc in the lumbar spine. 11.Coronary artery disease with prior history of stent. 12.Depression, not otherwise specified. 13.Gait dysfunction, uses a walker at baseline. 14.Chronic obstructive pulmonary disease in an ex-smoker. 15.Presbyesophagus causing chronic dysphagia. 16.Coumadin monitoring. PLAN: I initially spoke to Dr. Santana from infectious disease and then did try to reach Dr. Santiago. I did text him and found out later that [place] and he was agreeable that we transfer the patient out. At this point, patient does not have any neurological deficits. I later spoke to the patient's and daughter at home and did discuss that the patient is actually getting better with the current antibiotics and patient can be then transferred to [facility] and they are okay with doing that tomorrow. I also discussed with Dr. Santana that there is no emergent need, since the patient seemed to be doing a bit better, but the total time spent today was about an hour with over 35-40 minutes of discussion. DIVINA / JEFRY: [id number] /
[2017-09-23 23:33] LABS: Glucose,Whole Blood 414 mg/dL (75-99)
[2017-09-23 23:55] LABS: Glucose,Whole Blood 421 mg/dL (75-99)
[2017-09-24 00:34] LABS: Glucose,Whole Blood 419 mg/dL (75-99)
[2017-09-24 00:56] LABS: Glucose,Whole Blood 436 mg/dL (75-99)
[2017-09-24 01:32] LABS: Glucose,Whole Blood 370 mg/dL (75-99)
[2017-09-24 02:04] LABS: Glucose,Whole Blood 251 mg/dL (75-99)
[2017-09-24 02:28] LABS: Glucose,Whole Blood 267 mg/dL (75-99)
[2017-09-24 03:00] LABS: Glucose,Whole Blood 137 mg/dL (75-99)
[2017-09-24 03:28] LABS: Glucose,Whole Blood 119 mg/dL (75-99)
[2017-09-24] MEDS: NAFCILLIN 2 GM in DEXTROSE 5% IN WATER 50 ML IVPB SCH ×8 (03:45→12:40)
[2017-09-24 05:55] LABS: Glucose,Whole Blood 60 mg/dL (75-99)
[2017-09-24 06:14] LABS: Glucose,Whole Blood 68 mg/dL (75-99)
[2017-09-24] MEDS: INSULIN ASPART 100 UNIT/ML 1 ML 10 ML VIAL SQ SCH ×2 (06:21→13:22)
[2017-09-24] MEDS: METHADONE 5 MG TAB PO SCH ×2 (06:21→13:23)
[2017-09-24 06:24] LABS: Glucose,Whole Blood 64 mg/dL (75-99)
[2017-09-24 06:35] LABS: Glucose,Whole Blood 142 mg/dL (75-99)
[2017-09-24] MEDS: SODIUM CHLORIDE 0.9% 1,000 ML IV SCH (06:44)
[2017-09-24] MEDS ORDERED: VANCOMYCIN TROUGH DUE 1 EACH MISC MISCELLANE ONE (07:00)
[2017-09-24 07:31] LABS: Basophils % (A) 0 %; Eosinophils # (A) 0.3 k/uL (0-0.7); Eosinophils % (A) 3 %; HCT 41.3 % (39.0-53.0); HGB 12.7 gm/dL (13.0-17.5); Hypochromasia Moderate; Lymphocytes # (A) 1.2 k/uL (1.0-4.8); Lymphocytes % (A) 10 %; MCH 25.4 pg (25.0-35.0); MCHC 30.7 g/dL (31.0-37.0); MCV 82.8 fL (80.0-100.0); Mean Platelet Volume 7.3; Monocytes # (A) 0.6 k/uL (0-1.0); Monocytes % (A) 5 %; Neutrophils # (A) 9.6 k/uL (1.3-7.7); Neutrophils % (A) 80 %; Platelet Count 307 k/uL (150-450); RBC 4.99 m/uL (4.30-5.90); RDW 15.8 % (11.5-15.5); WBC 12.1 k/uL (3.8-10.6)
[2017-09-24 07:40] LABS: INR 2.8 (<1.2); Prothrombin Time 25.3 sec (9.0-12.0)
[2017-09-24 07:48] LABS: Calcium 9.1 mg/dL (8.4-10.2); Potassium 3.8 mmol/L (3.5-5.1); Total Bilirubin 0.9 mg/dL (0.2-1.3); Total Protein 6.6 g/dL (6.3-8.2)
[2017-09-24] MEDS: BUDESONIDE 0.5 MG/2 ML NEBU INHALATION SCH (08:28)
[2017-09-24] MEDS: IPRATROPIUM-ALBUTEROL 3 ML NEB INHALATION SCH ×2 (08:28→11:50)
[2017-09-24] MEDS: TRIAMCINOLONE 0.1% CREAM 80 GM TUBE TOPICAL SCH (08:43)
[2017-09-24] MEDS: METOLAZONE 2.5 MG TAB PO SCH (08:43)
[2017-09-24] MEDS: predniSONE 10 MG TAB PO SCH (08:44)
[2017-09-24] MEDS: SPIRONOLACTONE 25 MG TAB PO SCH (08:44)
[2017-09-24] MEDS: FUROSEMIDE 80 MG TAB PO SCH (08:44)
[2017-09-24] MEDS: SACUBITRIL/VALSARTAN 24 MG-26 MG TABLET PO SCH (08:44)
[2017-09-24] MEDS: METOPROLOL TARTRATE 50 MG TAB PO SCH (08:45)
[2017-09-24] MEDS: PANTOPRAZOLE 40 MG TABLET PO SCH (08:45)
[2017-09-24 11:34] LABS: Glucose,Whole Blood 432 mg/dL (75-99)
--- NOTE | 2017-09-24 13:36 | P.PN ---
Subjective This is a pleasant 77-year-old male who follows with Dr. Gardner as an outpatient. Past medical history significant for chronic persistent atrial fibrillation, ischemic cardiomyopathy, coronary artery disease and dyslipidemia. We asked to see him yesterday in consultation for a transient episode of hypotension. Blood pressures Monday 104/65. 93 afebrile maintaining oxygen saturation on nasal cannula. Laboratory data reviewed, hemoglobin 12.1, platelets 307, INR 2.8, sodium 134, potassium 3.8, creatinine 1.07. He is currently maintained on Lasix 80 mg twice a day, Lopressor 100 mg twice a day, Aldactone 25 mg daily and and Vxeonunn83/26 mg BID. He is currently being treated for sepsis and bacteremia of unknown etiology. Objective - Vital Signs Vital signs: Vital Signs Temp 97.7 F 09/24/17 08:00 Pulse 96 09/24/17 12:01 Resp 20 09/24/17 08:00 BP 104/65 09/24/17 08:00 Pulse Ox 95 09/24/17 08:00 Intake & Output 09/23/17 09/24/17 09/24/17 18:59 06:59 18:59 Intake Total 822 101.000 240 Output Total 1300 2050 400 Balance -478 -1949.000 -160 Weight 99 kg Intake: Intake, IV Titration 350 101.000 Amount Insulin Regular 100 unit 101.000 In Sodium Chloride 0.9% 100 ml @ Titrate IV .Q0M MARCELLE Rx#:[id number] Piperacillin-Tazobactam 3 50 .375 gm In Dextrose/Water 1 50ml.bag @ 12.5 mls/hr IVPB Q8H MARCELLE Rx#: [id number] Sodium Chloride 0.9% 1, 300 000 ml @ 50 mls/hr IV . Q20H MARCELLE Rx#:[id number] Oral 472 0 240 Output: Urine 1300 2050 400 Other: Voiding Method Urinal Urinal # Voids 3 4 # Bowel Movements 0 - Exam GENERAL: Well-appearing, well-nourished and in no acute distress. NECK: Supple without JVD or thyromegaly. LUNGS: Breath sounds clear to auscultation bilaterally. Respiration equal and unlabored. No wheezes, rales or rhonchi. HEART: Irregular rate and rhythm with systolic ejection murmur, no rubs or gallops. S1 and S2 heard. EXTREMITIES: Normal range of motion, trace bilateral nonpitting lower extremity edema. No clubbing or cyanosis. Peripheral pulses intact. - Labs CBC & Chem 7: 09/24/17 06:23 09/24/17 06:23 Labs: Abnormal Lab Results - Last 24 Hours (Table) 09/23/17 09/23/17 09/23/17 Range/Units 16:49 20:40 23:31 WBC (3.8-10.6) k/uL Hgb (13.0-17.5) gm/dL MCHC (31.0-37.0) g/dL RDW (11.5-15.5) % Neutrophils # (1.3-7.7) k/uL PT (9.0-12.0) sec INR (<1.2) Sodium (137-145) mmol/L Chloride (98-107) mmol/L Carbon Dioxide (22-30) mmol/L BUN (9-20) mg/dL POC Glucose (mg/dL) 409 H 477 H 414 H (75-99) mg/dL Albumin (3.5-5.0) g/dL 09/23/17 09/24/17 09/24/17 Range/Units 23:54 00:31 00:54 WBC (3.8-10.6) k/uL Hgb (13.0-17.5) gm/dL MCHC (31.0-37.0) g/dL RDW (11.5-15.5) % Neutrophils # (1.3-7.7) k/uL PT (9.0-12.0) sec INR (<1.2) Sodium (137-145) mmol/L Chloride (98-107) mmol/L Carbon Dioxide (22-30) mmol/L BUN (9-20) mg/dL POC Glucose (mg/dL) 421 H 419 H 436 H (75-99) mg/dL Albumin (3.5-5.0) g/dL 09/24/17 09/24/17 09/24/17 Range/Units 01:31 02:03 02:26 WBC (3.8-10.6) k/uL Hgb (13.0-17.5) gm/dL MCHC (31.0-37.0) g/dL RDW (11.5-15.5) % Neutrophils # (1.3-7.7) k/uL PT (9.0-12.0) sec INR (<1.2) Sodium (137-145) mmol/L Chloride (98-107) mmol/L Carbon Dioxide (22-30) mmol/L BUN (9-20) mg/dL POC Glucose (mg/dL) 370 H 251 H 267 H (75-99) mg/dL Albumin (3.5-5.0) g/dL 09/24/17 09/24/17 09/24/17 Range/Units 02:59 03:27 05:54 WBC (3.8-10.6) k/uL Hgb (13.0-17.5) gm/dL MCHC (31.0-37.0) g/dL RDW (11.5-15.5) % Neutrophils # (1.3-7.7) k/uL PT (9.0-12.0) sec INR (<1.2) Sodium (137-145) mmol/L Chloride (98-107) mmol/L Carbon Dioxide (22-30) mmol/L BUN (9-20) mg/dL POC Glucose (mg/dL) 137 H 119 H 60 L (75-99) mg/dL Albumin (3.5-5.0) g/dL 09/24/17 09/24/17 09/24/17 Range/Units 06:11 06:22 06:23 WBC (3.8-10.6) k/uL Hgb (13.0-17.5) gm/dL MCHC (31.0-37.0) g/dL RDW (11.5-15.5) % Neutrophils # (1.3-7.7) k/uL PT 25.3 H (9.0-12.0) sec INR 2.8 H (<1.2) Sodium (137-145) mmol/L Chloride (98-107) mmol/L Carbon Dioxide (22-30) mmol/L BUN (9-20) mg/dL POC Glucose (mg/dL) 68 L 64 L (75-99) mg/dL Albumin (3.5-5.0) g/dL 09/24/17 09/24/17 09/24/17 Range/Units 06:23 06:23 06:34 WBC 12.1 H (3.8-10.6) k/uL Hgb 12.7 L (13.0-17.5) gm/dL MCHC 30.7 L (31.0-37.0) g/dL RDW 15.8 H (11.5-15.5) % Neutrophils # 9.6 H (1.3-7.7) k/uL PT (9.0-12.0) sec INR (<1.2) Sodium 134 L (137-145) mmol/L Chloride 87 L (98-107) mmol/L Carbon Dioxide 36 H (22-30) mmol/L BUN 41 H (9-20) mg/dL POC Glucose (mg/dL) 142 H (75-99) mg/dL Albumin 3.0 L (3.5-5.0) g/dL 09/24/17 Range/Units 11:30 WBC (3.8-10.6) k/uL Hgb (13.0-17.5) gm/dL MCHC (31.0-37.0) g/dL RDW (11.5-15.5) % Neutrophils # (1.3-7.7) k/uL PT (9.0-12.0) sec INR (<1.2) Sodium (137-145) mmol/L Chloride (98-107) mmol/L Carbon Dioxide (22-30) mmol/L BUN (9-20) mg/dL POC Glucose (mg/dL) 432 H (75-99) mg/dL Albumin (3.5-5.0) g/dL Microbiology - Last 24 Hours (Table) 09/23/17 13:15 Blood Culture Gram Stain - Preliminary Blood 09/23/17 13:15 Blood Culture - Final Blood 09/21/17 14:47 Blood Culture Gram Stain - Final Blood Blood Culture - Final Staphylococcus aureus 09/21/17 15:06 Blood Culture Gram Stain - Final Blood Blood Culture - Final Staphylococcus aureus 09/20/17 21:50 Urine Culture - Final Urine,Voided Enterobacter aerogenes 09/20/17 20:32 Blood Culture Gram Stain - Final Blood Blood Culture - Final Staphylococcus aureus Assessment and Plan Assessment: ASSESSMENT Bacteremia with febrile episodes Transient episode of hypotension, currently stable History of ischemic cardiomyopathy, currently euvolemic History of coronary artery disease status post angioplasty Chronic persistent atrial fibrillation on long-term anticoagulation with controlled ventricular response COPD PLAN Continue current medical regimen and ongoing medical management of bacteremia. We will continue to follow the patient as needed. Follow-up with Dr. Gardner upon discharge. Nurse Practitioner note has been reviewed, I agree with a documented findings and plan of care. Patient was seen and examined.
[2017-09-24] MEDS ORDERED: INSULIN REGULAR 100 UNIT in SODIUM CHLORIDE 0.9% 100 ML IV SCH (14:00)
[2017-09-24 14:07] LABS: Glucose,Whole Blood 461 mg/dL (75-99)
[2017-09-24 14:07] LABS: Glucose,Whole Blood 568 mg/dL (75-99)
[2017-09-24 14:27] VITALS: BP 91/51; PULSE 83; RESP 16; TEMP 97.5
--- NOTE | 2017-09-25 11:13 | ECHOF ---
Referral Reason:rule out heart disease , EF, MEASUREMENTS -------- HEIGHT: 180.3 cm WEIGHT: 96.2 kg BP: IVSd: 1.2 cm (0.6 - 1.1) LVIDd: 3.8 cm (3.9 - 5.3) LVPWd: 1.4 cm (0.6 - 1.1) IVSs: 1.9 cm LVIDs: 1.9 cm LVPWs: 2.0 cm LAESV Index (A-L): 30.46 ml/m Ao Diam: 3.7 cm (2.0 - 3.7) AV Cusp: 2.4 cm (1.5 - 2.6) LA Diam: 3.9 cm (2.7 - 3.8) MV EXCURSION: 22.256 mm (> 18.000) MV EF SLOPE: 166 mm/s (70 - 150) EPSS: 1.2 cm MV E Ab: 0.58 m/s MV DecT: 129 ms MV A Ab: 0.44 m/s MV E/A Ratio: 1.31 RAP: 5.00 mmHg RVSP: 11.42 mmHg FINDINGS -------- This was a technically difficult study with suboptimal views. The left ventricular size is normal. There is mild concentric left ventricular hypertrophy. Overa ll left ventricular systolic function is moderately impaired with, an EF between 35 - 40 %. Basal i nferoseptal LV wall motion is hypokinetic. Inferior Hypokinesis Mid to basal inferiorlateral is hypokinetic The right ventricle is normal in size and function. The left atrium is normal in size. The right atrium is normal in size. Lumason used The aortic valve is trileaflet, and appears structurally normal. No aortic stenosis or regurgitation. There is trace mitral regurgitation. Mild tricuspid regurgitation present. The right ventricular systolic pressure, as measured by Doppl er, is 11.42mmHg. Pulmonic valve appears structurally normal. The aortic root size is normal. The pericardium is normal. CONCLUSIONS -------- 1. This was a technically difficult study with suboptimal views. 2. The left ventricular size is normal. 3. There is mild concentric left ventricular hypertrophy. 4. Overall left ventricular systolic function is moderately impaired with, an EF between 35 - 40 %. 5. Basal inferoseptal LV wall motion is hypokinetic. 6. Inferior Hypokinesis 7. Mid to basal inferiorlateral is hypokinetic 8. The right ventricle is normal in size and function. 9. The left atrium is normal in size. 10. The right atrium is normal in size. 11. Lumason used 12. The aortic valve is trileaflet, and appears structurally normal. No aortic stenosis or regurgitat ion. 13. There is trace mitral regurgitation. 14. Mild tricuspid regurgitation present. 15. The right ventricular systolic pressure, as measured by Doppler, is 11.42mmHg. 16. Pulmonic valve appears structurally normal. 17. The aortic root size is normal. 18. The pericardium is normal. WIRELESS ARCHITECT: Odette Carter RDCS
--- NOTE | 2017-09-26 05:04 | DS ---
DISCHARGE SUMMARY DATE OF ADMISSION: 09/20/2017 DATE OF TRANSFER: 09/24/2017 FINAL DIAGNOSES: 1. Epidural abscess L3-L4 site with sepsis causing positive blood cultures persisted with methicillin-sensitive Staphylococcus aureus causing positive blood cultures persistent with methicillin-sensitive Staphylococcus aureus. 2. Chronic congestive heart failure from systolic dysfunction, ejection fraction 40% from underlying ischemic heart disease. 3. Persistent atrial fibrillation. 4. Diabetes mellitus type 2, chronically on insulin, uncontrolled with hyperglycemia. 5. Hyperlipidemia. 6. Essential hypertension. 7. Chronic fibromyalgia. 8. Hiatal hernia. 9. 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 10.Herniated disc in the lumbar spine. 11.Coronary artery disease with prior history of stent. 12.Depression, not otherwise specified. 13.Gait dysfunction, uses a walker at baseline. 14.Chronic obstructive pulmonary disease in an ex-smoker. 15.Presbyesophagus causing chronic dysphagia. 16.Coumadin monitoring. HOSPITAL COURSE: This patient presented with septic picture and some lower back pain. MRI of the spine did confirm an epidural abscess. I text with Dr. Santiago who did patient's back surgery about a year ago, but [place]. I also spoke to Dr. Santana who is covering for Dr. Peterson and given the persistent blood cultures and after talking to the patient and the , decided to transfer the patient to [facility] for possible surgical intervention. Did speak to the accepting physician. I gave him the report. The patient will be transferred there. ON EXAMINATION: LUNGS: Decreased breath sounds. CARDIOVASCULAR: First and second sounds normal. The patient psych AO x3. Power on the right side is weak. DISPOSITION: [facility]. Medications including nafcillin. Discussion and discharge planning more than 35 minutes. MMODL / IJN: [id number] /
== END 2017-09-24 15:23 | disposition short-term general hospital (02) | DRG 871 ==
LOC: EC 19:39 → 6SEL 21:19
PROVIDERS: ADMIT Hospitalist; ATTEND Hospitalist
DX: A41.01 Sepsis due to Methicillin susceptible Staphylococcus aureus (principal); G06.1 Intraspinal abscess and granuloma; E87.1 Hypo-osmolality and hyponatremia; I50.22 Chronic systolic (congestive) heart failure; J44.1 Chronic obstructive pulmonary disease with (acute) exacerbation; I69.351 Hemiplegia and hemiparesis following cerebral infarction affecting right dominant side; E11.65 Type 2 diabetes mellitus with hyperglycemia; E78.5 Hyperlipidemia, unspecified; E86.0 Dehydration; E87.6 Hypokalemia; F32.9 Major depressive disorder, single episode, unspecified; F41.9 Anxiety disorder, unspecified; G89.29 Other chronic pain; H40.9 Unspecified glaucoma; I11.0 Hypertensive heart disease with heart failure; I25.10 Atherosclerotic heart disease of native coronary artery without angina pectoris; I25.5 Ischemic cardiomyopathy; I48.2 Chronic atrial fibrillation; K21.9 Gastro-esophageal reflux disease without esophagitis; K44.9 Diaphragmatic hernia without obstruction or gangrene; M46.46 Discitis, unspecified, lumbar region; M51.26 Other intervertebral disc displacement, lumbar region; M79.7 Fibromyalgia; N40.0 Benign prostatic hyperplasia without lower urinary tract symptoms; R13.10 Dysphagia, unspecified; T38.0X5A Adverse effect of glucocorticoids and synthetic analogues, initial encounter; Z79.01 Long term (current) use of anticoagulants; Z79.4 Long term (current) use of insulin; Z79.899 Other long term (current) drug therapy; Z87.891 Personal history of nicotine dependence; Z98.61 Coronary angioplasty status; Z88.2 Allergy status to sulfonamides
CPT/HCPCS: 36415; 71046; 72129; 72132; 72158; 76705; 76770; 80048; 80053; 80202; 81001; 82009; 82803; 83036; 83605; 83735; 84100; 84132; 85025; 85610; 85652; 86140; 87040; 87077; 87086; 87186; 93005; 93306; 94640; 94760; 96360; 96361; 99285

== ENCOUNTER 2018-10-31 11:33 | Inpatient (IN) | payer MEDICARE, BC ==
--- NOTE | 2018-10-31 11:56 | ED ---
Weakness HPI - General Stated complaint: Anemic, diff breathing Time Seen by Provider: 10/31/18 11:38 Source: RN notes reviewed, old records reviewed Limitations: no limitations (Patient mildly poor historian) - History of Present Illness Initial comments: This is a 78-year-old male the ER for evaluation. Patient has a for evaluation of weakness. Per records patient may have anemia. Patient states he does not feel well as having significant blood in his urine. Patient is on blood thinners secondary to fibrillation but unsure medications. No abdominal pain just feel weak lightheaded and dizzy especially with movement or activity. Patient's brought in by EMS EMS reports the patient may be anemic. Patient's main complaint now is of significant amount of blood that he is having is here. He denies abdominal pain. No nausea vomiting or diarrhea, no blood in the stool MD Complaint: generalized weakness, lack of energy -: unknown Location: generalized Severity: moderate Severity scale (1-10): 5 Consistency: constant Improves with: none Worsens with: movement, exertion Context: history of similar Associated Symptoms: shortness of breath - Related Data Home Medications Medication Instructions Recorded Confirmed Triamcinolone 0.1% Cream [Kenalog 1 applic TOPICAL BID PRN 07/08/17 10/31/18 0.1% Cream] Furosemide [Lasix] 80 mg PO DAILY 09/04/17 10/31/18 Metoprolol Tartrate [Lopressor] 100 mg PO BID@0800,1600 09/04/17 10/31/18 Omeprazole [PriLOSEC] 20 mg PO AC-BID@08,16 09/20/17 10/31/18 Aspirin EC [Ecotrin Low Dose] 162 mg PO HS 10/31/18 10/31/18 Cyanocobalamin (Vitamin B-12) 1,000 mcg PO DAILY@1200 10/31/18 10/31/18 [Vitamin B-12] Cyclobenzaprine [Flexeril] 10 mg PO TID 10/31/18 10/31/18 Diclofenac Sodium [Voltaren Gel] 2 gram TOPICAL QID 10/31/18 10/31/18 Eye Vitamin 1 tab PO DAILY 10/31/18 10/31/18 Fluticasone Nasal [place] [Flonase 2 spr EA NOSTRIL DAILY PRN 10/31/18 10/31/18 Nasal [place]] Insulin Glargine,Hum.rec.anlog 30 units SQ DAILY 10/31/18 10/31/18 [[place]ison Solostar] Insulin Lispro [humaLOG Kwikpen] 4 unit SQ AC-LUNCH PRN 10/31/18 10/31/18 Insulin Lispro [humaLOG Kwikpen] 5 unit SQ AC-BRKFST PRN 10/31/18 10/31/18 Insulin Lispro [humaLOG Kwikpen] 5 unit SQ AC-SUPPER PRN 10/31/18 10/31/18 Ipratropium-Albuterol Nebulize 3 ml INHALATION RT-TID PRN 10/31/18 10/31/18 [Duoneb 0.5 mg-3 mg/3 ml Soln] Liraglutide [Victoza 2-Garry] 1.8 mg SQ DAILY 10/31/18 10/31/18 Magnesium Oxide [Mag-Ox] 250 mg PO DAILY 10/31/18 10/31/18 Metolazone [Zaroxolyn] 2.5 mg PO DAILY PRN 10/31/18 10/31/18 Montelukast [Singulair] 10 mg PO HS 10/31/18 10/31/18 Nitroglycerin Sl Tabs [Nitrostat] 0.4 mg SUBLINGUAL Q5M PRN 10/31/18 10/31/18 Potassium Chloride ER [K-Dur 10] 10 meq PO DAILY 10/31/18 10/31/18 Sertraline [Zoloft] 100 mg PO DAILY 10/31/18 10/31/18 Vitamin E 100 unit PO DAILY@1200 10/31/18 10/31/18 Warfarin [Coumadin] 5 mg PO HS 10/31/18 10/31/18 hydrOXYzine HCL [Atarax] 25 mg PO TID PRN 10/31/18 10/31/18 Previous Rx's Medication Instructions Recorded Methadone [Dolophine] 5 mg PO Q8H #9 tab 09/13/17 Allergies Allergy/AdvReac Type Severity Reaction Status Date / Time Sulfa (Sulfonamide Allergy Rash/Hives Verified 10/31/18 12:25 Antibiotics) Review of Systems ROS Statement: Those systems with pertinent positive or pertinent negative responses have been documented in the HPI. ROS Other: All systems not noted in ROS Statement are negative. Past Medical History Past Medical History: Atrial Fibrillation, Asthma, Coronary Artery Disease (CAD), Heart Failure, COPD, CVA/TIA, Diabetes Mellitus, Eye Disorder, Fibromyalgia, GERD/Reflux, Hyperlipidemia, Hypertension, Musculoskeletal Disorder, Osteoarthritis (OA), Pneumonia, Prostate Disorder Additional Past Medical History / Comment(s): IDDM type II, neuropathy bilateral feet, ischemic cardiomyopathy, Afib with RVR, 2009 CVA with R sided weaknes upper and lower extremities, gait dysfunction, bilateral eyes glaucoma, hiatal hernia and gets food "stuck" at times, chronic low back pain, herniated discs, TURP for BPH, insomnia History of Any Multi-Drug Resistant Organisms: None Reported Past Surgical History: Back Surgery, Heart Catheterization With Stent, Orthopedic Surgery, Prostate Surgery Additional Past Surgical History / Comment(s): PCI with stent to LAD in 2001, unsuccessful cardioversion in 2016, endoscopic sinus surgery/polypectomy, colonoscopy, TURP, bilateral hydrocelectomy, low back surgery. Past Anesthesia/Blood Transfusion Reactions: No Reported Reaction Date of Last Stent Placement:: 2001 Past Psychological History: Anxiety, Depression Smoking Status: Former smoker Past Alcohol Use History: None Reported Past Drug Use History: None Reported - Past Family History Mother Family Medical History: No Reported History Father Family Medical History: Cancer Additional Family Medical History / Comment(s): Father had prostrate cancer. General Exam General appearance: alert, in no apparent distress Head exam: Present: atraumatic, normocephalic, normal inspection Eye exam: Present: normal appearance, PERRL, EOMI. Absent: scleral icterus, conjunctival injection, periorbital swelling ENT exam: Present: normal exam, mucous membranes moist Neck exam: Present: normal inspection. Absent: tenderness, meningismus, lymphadenopathy Respiratory exam: Present: normal lung sounds bilaterally. Absent: respiratory distress, wheezes, rales, rhonchi, stridor Cardiovascular Exam: Present: regular rate, normal rhythm, normal heart sounds. Absent: systolic murmur, diastolic murmur, rubs, gallop, clicks GI/Abdominal exam: Present: soft, normal bowel sounds. Absent: distended, tenderness, guarding, rebound, rigid Extremities exam: Present: normal inspection, full ROM, normal capillary refill. Absent: tenderness, pedal edema, joint swelling, calf tenderness Back exam: Present: normal inspection Neurological exam: Present: alert, oriented X3, CN II-XII intact Psychiatric exam: Present: normal affect, normal mood Skin exam: Present: warm, dry, intact, normal color. Absent: rash Course Vital Signs 10/31/18 12:00 Temperature 98.8 F Pulse Rate 105 H Respiratory 24 Rate Blood Pressure 90/62 O2 Sat by Pulse 94 L Oximetry - Reevaluation(s) Reevaluation #1: 10/31/18 11:56 Medical records reviewed 10/31/18 14:21 Patient still feeling very weak not well Reevaluation #2: 10/31/18 14:21 Patient denies chest pain or current shortness of breath EKG Findings - EKG Comments: EKG Findings:: EKG shows A. fib rate of 95, QRS 06, QTc 492 Medical Decision Making - Medical Decision Making 78 male the ER for evaluation coming in for weakness probable anemia patient is on anticoagulation. Patient states he's having some U blood in his urine. No blood in the urine here in the ER. Patient does have and STEMI troponin of 3, patient is currently anticoagulated with Coumadin, will give aspirin and transported troponin. Patient will be admitted for cardiology evaluation, patient also has mild UTI we'll place on antibiotics and consider transfusion regarding anemia - Lab Data Result diagrams: 10/31/18 12:07 10/31/18 12:07 Lab Results 10/31/18 10/31/18 10/31/18 Range/Units 12:07 12:07 12:07 WBC 12.7 H (3.8-10.6) k/uL RBC 3.75 L (4.30-5.90) m/uL Hgb 7.3 L (13.0-17.5) gm/dL Hct 24.8 L (39.0-53.0) % MCV 66.0 L (80.0-100.0) fL MCH 19.5 L (25.0-35.0) pg MCHC 29.5 L (31.0-37.0) g/dL RDW 17.4 H (11.5-15.5) % Plt Count 369 (150-450) k/uL Neutrophils % 82 % Lymphocytes % 7 % Monocytes % 6 % Eosinophils % 3 % Basophils % 0 % Neutrophils # 10.4 H (1.3-7.7) k/uL Lymphocytes # 0.8 L (1.0-4.8) k/uL Monocytes # 0.8 (0-1.0) k/uL Eosinophils # 0.4 (0-0.7) k/uL Basophils # 0.1 (0-0.2) k/uL Hypochromasia Marked Poikilocytosis Slight Anisocytosis Slight Microcytosis Marked PT (9.0-12.0) sec INR (<1.2) APTT (22.0-30.0) sec Sodium 133 L (137-145) mmol/L Potassium 4.6 (3.5-5.1) mmol/L Chloride 92 L (98-107) mmol/L Carbon Dioxide 30 (22-30) mmol/L Anion Gap 11 mmol/L BUN 30 H (9-20) mg/dL Creatinine 1.22 (0.66-1.25) mg/dL Est GFR (CKD-EPI)AfAm 66 (>60 ml/min/1.73 sqM) Est GFR (CKD-EPI)NonAf 58 (>60 ml/min/1.73 sqM) Glucose 252 H (74-99) mg/dL Plasma Lactic Acid Alan 2.0 (0.7-2.0) mmol/L Calcium 8.7 (8.4-10.2) mg/dL Phosphorus 3.7 (2.5-4.5) mg/dL Magnesium 2.0 (1.6-2.3) mg/dL Total Bilirubin 0.6 (0.2-1.3) mg/dL AST 39 (17-59) U/L ALT 22 (21-72) U/L Alkaline Phosphatase 79 (38-126) U/L Creatine Kinase 149 (55-170) U/L Troponin I (0.000-0.034) ng/mL NT-Pro-B Natriuret Pep pg/mL Total Protein 6.6 (6.3-8.2) g/dL Albumin 3.4 L (3.5-5.0) g/dL Urine Color Urine Appearance (Clear) Urine pH (5.0-8.0) Ur Specific Otis (1.001-1.035) Urine Protein (Negative) Urine Glucose (UA) (Negative) Urine Ketones (Negative) Urine Blood (Negative) Urine Nitrite (Negative) Urine Bilirubin (Negative) Urine Urobilinogen (<2.0) mg/dL Ur Leukocyte Esterase (Negative) Urine RBC (0-5) /hpf Urine WBC (0-5) /hpf Hyaline Casts (0-2) /lpf Urine Mucus (None) /hpf 10/31/18 10/31/18 10/31/18 Range/Units 12:07 12:07 12:07 WBC (3.8-10.6) k/uL RBC (4.30-5.90) m/uL Hgb (13.0-17.5) gm/dL Hct (39.0-53.0) % MCV (80.0-100.0) fL MCH (25.0-35.0) pg MCHC (31.0-37.0) g/dL RDW (11.5-15.5) % Plt Count (150-450) k/uL Neutrophils % % Lymphocytes % % Monocytes % % Eosinophils % % Basophils % % Neutrophils # (1.3-7.7) k/uL Lymphocytes # (1.0-4.8) k/uL Monocytes # (0-1.0) k/uL Eosinophils # (0-0.7) k/uL Basophils # (0-0.2) k/uL Hypochromasia Poikilocytosis Anisocytosis Microcytosis PT 38.4 H (9.0-12.0) sec INR 4.0 H (<1.2) APTT 39.2 H (22.0-30.0) sec Sodium (137-145) mmol/L Potassium (3.5-5.1) mmol/L Chloride (98-107) mmol/L Carbon Dioxide (22-30) mmol/L Anion Gap mmol/L BUN (9-20) mg/dL Creatinine (0.66-1.25) mg/dL Est GFR (CKD-EPI)AfAm (>60 ml/min/1.73 sqM) Est GFR (CKD-EPI)NonAf (>60 ml/min/1.73 sqM) Glucose (74-99) mg/dL Plasma Lactic Acid Alan (0.7-2.0) mmol/L Calcium (8.4-10.2) mg/dL Phosphorus (2.5-4.5) mg/dL Magnesium (1.6-2.3) mg/dL Total Bilirubin (0.2-1.3) mg/dL AST (17-59) U/L ALT (21-72) U/L Alkaline Phosphatase (38-126) U/L Creatine Kinase (55-170) U/L Troponin I 3.150 H* (0.000-0.034) ng/mL NT-Pro-B Natriuret Pep 86663 pg/mL Total Protein (6.3-8.2) g/dL Albumin (3.5-5.0) g/dL Urine Color Urine Appearance (Clear) Urine pH (5.0-8.0) Ur Specific Otis (1.001-1.035) Urine Protein (Negative) Urine Glucose (UA) (Negative) Urine Ketones (Negative) Urine Blood (Negative) Urine Nitrite (Negative) Urine Bilirubin (Negative) Urine Urobilinogen (<2.0) mg/dL Ur Leukocyte Esterase (Negative) Urine RBC (0-5) /hpf Urine WBC (0-5) /hpf Hyaline Casts (0-2) /lpf Urine Mucus (None) /hpf 10/31/18 Range/Units 12:07 WBC (3.8-10.6) k/uL RBC (4.30-5.90) m/uL Hgb (13.0-17.5) gm/dL Hct (39.0-53.0) % MCV (80.0-100.0) fL MCH (25.0-35.0) pg MCHC (31.0-37.0) g/dL RDW (11.5-15.5) % Plt Count (150-450) k/uL Neutrophils % % Lymphocytes % % Monocytes % % Eosinophils % % Basophils % % Neutrophils # (1.3-7.7) k/uL Lymphocytes # (1.0-4.8) k/uL Monocytes # (0-1.0) k/uL Eosinophils # (0-0.7) k/uL Basophils # (0-0.2) k/uL Hypochromasia Poikilocytosis Anisocytosis Microcytosis PT (9.0-12.0) sec INR (<1.2) APTT (22.0-30.0) sec Sodium (137-145) mmol/L Potassium (3.5-5.1) mmol/L Chloride (98-107) mmol/L Carbon Dioxide (22-30) mmol/L Anion Gap mmol/L BUN (9-20) mg/dL Creatinine (0.66-1.25) mg/dL Est GFR (CKD-EPI)AfAm (>60 ml/min/1.73 sqM) Est GFR (CKD-EPI)NonAf (>60 ml/min/1.73 sqM) Glucose (74-99) mg/dL Plasma Lactic Acid Alan (0.7-2.0) mmol/L Calcium (8.4-10.2) mg/dL Phosphorus (2.5-4.5) mg/dL Magnesium (1.6-2.3) mg/dL Total Bilirubin (0.2-1.3) mg/dL AST (17-59) U/L ALT (21-72) U/L Alkaline Phosphatase (38-126) U/L Creatine Kinase (55-170) U/L Troponin I (0.000-0.034) ng/mL NT-Pro-B Natriuret Pep pg/mL Total Protein (6.3-8.2) g/dL Albumin (3.5-5.0) g/dL Urine Color Yellow Urine Appearance Clear (Clear) Urine pH 7.0 (5.0-8.0) Ur Specific Otis 1.007 (1.001-1.035) Urine Protein Trace H (Negative) Urine Glucose (UA) 1+ H (Negative) Urine Ketones Negative (Negative) Urine Blood Moderate H (Negative) Urine Nitrite Negative (Negative) Urine Bilirubin Negative (Negative) Urine Urobilinogen <2.0 (<2.0) mg/dL Ur Leukocyte Esterase Moderate H (Negative) Urine RBC 1 (0-5) /hpf Urine WBC 13 H (0-5) /hpf Hyaline Casts 4 H (0-2) /lpf Urine Mucus Rare H (None) /hpf - Radiology Data Radiology results: report reviewed (Chest x-rays negative for acute disease, mild PVC), image reviewed Critical Care Time Critical Care Time: Yes Total Critical Care Time: 31 Disposition Clinical Impression: UTI (urinary tract infection), Weak, NSTEMI (non-ST elevated myocardial infarction), Anemia Disposition: ADMITTED IP TO THIS HOSP Condition: Serious Is patient prescribed a controlled substance at d/c from ED?: No Referrals: Yosvany Escalona MD [Primary Care Provider] - 1-2 days
[2018-10-31] MEDS ORDERED: SODIUM CHLORIDE 0.9% 1,000 ML IV STA (12:21)
--- NOTE | 2018-10-31 13:00 | XR ---
EXAMINATION TYPE: XR chest 2V DATE OF EXAM: 10/31/2018 COMPARISON: 09/20/2017 HISTORY: Shortness of breath and atrial fibrillation. TECHNIQUE: Frontal and lateral views of the chest are obtained. FINDINGS: Platelike left basilar subsegmental atelectasis is seen horizontally oriented near the cos tophrenic angle. Chronic interstitial prominence and minimal pulmonary vascular congestion similar to the prior. Cardiomediastinal silhouette is enlarged. No sizable pneumothorax. Trace bilateral pleura l effusions. Mild osseous demineralization. IMPRESSION: Very mild pulmonary vascular congestion and trace pleural effusions are seen with minima l left basilar subsegmental atelectasis.
[2018-10-31 13:06] LABS: Anisocytosis Slight; Appearance,Urine Clear (Clear); Basophils # (A) 0.1 k/uL (0-0.2); Basophils % (A) 0 %; Bilirubin,Urine Negative (Negative); Blood,Urine Moderate (Negative); Color,Urine Yellow; Eosinophils # (A) 0.4 k/uL (0-0.7); Eosinophils % (A) 3 %; Glucose,Urine (UA) 1+ (Negative); HCT 24.8 % (39.0-53.0); HGB 7.3 gm/dL (13.0-17.5); Hyaline Casts,Urine 4 /lpf (0-2); Hypochromasia Marked; Ketones,Urine Negative (Negative); Leukocyte Esterase,Urine Moderate (Negative); Lymphocytes # (A) 0.8 k/uL (1.0-4.8); Lymphocytes % (A) 7 %; MCH 19.5 pg (25.0-35.0); MCHC 29.5 g/dL (31.0-37.0); Mean Platelet Volume 6.6; Microcytosis Marked; Monocytes # (A) 0.8 k/uL (0-1.0); Monocytes % (A) 6 %; Mucus,Urine Rare /hpf; Neutrophils # (A) 10.4 k/uL (1.3-7.7); Neutrophils % (A) 82 %; Nitrite,Urine Negative (Negative); Platelet Count 369 k/uL (150-450); Poikilocytosis Slight; Protein,Urine Trace (Negative); RBC 3.75 m/uL (4.30-5.90); RBC,Urine 1 /hpf (0-5); RDW 17.4 % (11.5-15.5); Specific Gravity,Urine 1.007 (1.001-1.035); Urobilinogen,Urine <2.0 mg/dL (<2.0); WBC 12.7 k/uL (3.8-10.6); WBC,Urine 13 /hpf (0-5)
[2018-10-31 13:13] LABS: Partial Thromboplastin Time 39.2 sec (22.0-30.0); Prothrombin Time 38.4 sec (9.0-12.0)
[2018-10-31 13:21] LABS: Albumin 3.4 g/dL (3.5-5.0); Calcium 8.7 mg/dL (8.4-10.2); Phosphorus 3.7 mg/dL (2.5-4.5); Potassium 4.6 mmol/L (3.5-5.1); Total Bilirubin 0.6 mg/dL (0.2-1.3); Total Protein 6.6 g/dL (6.3-8.2)
[2018-10-31] MEDS ORDERED: ASPIRIN 81 MG PO STA (14:17)
[2018-10-31] MEDS ORDERED: NITROGLYCERIN SL TABS 0.4 MG TAB SUBLINGUAL PRN (14:17)
[2018-10-31] MEDS ORDERED: FUROSEMIDE 10 MG/ML 4 ML VIAL IV STA (16:06)
[2018-10-31] MEDS: SODIUM CHLORIDE 0.9% 1,000 ML IV SCH (16:11)
[2018-10-31 17:08] LABS: Glucose,Whole Blood 200 mg/dL (75-99)
[2018-10-31] MEDS ORDERED: INSULIN LISPRO 5 UNIT SQ PRN ×2 (17:37)
[2018-10-31] MEDS ORDERED: INSULIN LISPRO 4 UNIT SQ PRN (17:37)
[2018-10-31] MEDS ORDERED: FLUTICASONE 50MCG/SPRAY NASAL 16GM EA NOSTRIL PRN (17:37)
[2018-10-31] MEDS ORDERED: METOLAZONE 2.5 MG TAB PO PRN (17:37)
[2018-10-31] MEDS: INSULIN ASPART (NovoLOG) 100 UNIT/ML VIAL SQ SCH (18:02)
[2018-10-31] MEDS: DICLOFENAC SODIUM GEL 100 GM TUBE TOPICAL SCH (19:04)
[2018-10-31] MEDS: METHADONE 5 MG TAB PO SCH (19:05)
[2018-10-31] MEDS: IPRATROPIUM-ALBUTEROL 3 ML NEB INHALATION PRN (19:24)
[2018-10-31 20:50] LABS: Glucose,Whole Blood 232 mg/dL (75-99)
[2018-10-31] MEDS: METOPROLOL TARTRATE 25 MG TAB PO SCH (22:06)
[2018-10-31] MEDS: CYCLOBENZAPRINE 10 MG TAB PO SCH (22:06)
[2018-10-31] MEDS: MONTELUKAST 10 MG TAB PO SCH (22:06)
[2018-11-01] MEDS: DICLOFENAC SODIUM GEL 100 GM TUBE TOPICAL SCH ×5 (00:03→21:11)
[2018-11-01 01:04] LABS: Anisocytosis Slight; Basophils % (A) 0 %; Eosinophils # (A) 0.5 k/uL (0-0.7); Eosinophils % (A) 4 %; HCT 24.4 % (39.0-53.0); HGB 7.2 gm/dL (13.0-17.5); Hypochromasia Marked; Lymphocytes # (A) 1.6 k/uL (1.0-4.8); Lymphocytes % (A) 15 %; MCH 19.8 pg (25.0-35.0); MCHC 29.7 g/dL (31.0-37.0); MCV 66.6 fL (80.0-100.0); Mean Platelet Volume 6.4; Microcytosis Marked; Monocytes # (A) 0.9 k/uL (0-1.0); Monocytes % (A) 8 %; Neutrophils # (A) 7.4 k/uL (1.3-7.7); Neutrophils % (A) 70 %; Platelet Count 336 k/uL (150-450); Poikilocytosis Slight; RBC 3.66 m/uL (4.30-5.90); RDW 17.1 % (11.5-15.5); WBC 10.6 k/uL (3.8-10.6)
[2018-11-01] MEDS: METHADONE 5 MG TAB PO SCH ×3 (01:17→17:27)
--- NOTE | 2018-11-01 03:37 | CONS ---
CONSULTATION Mr. Flores is a 78-year-old gentleman who is seen for cardiac evaluation. This patient's electronic medical records as well as old records reviewed. The patient came with a complaint of weakness. The patient gives a history that over the weekend he had some blood in the urine. He was seen in the Urgent Care and he was treated for urinary tract infection. However, patient did not feel good, is feeling weak and also been having short of breath. The patient denies any definite history of black stool, but he is having some mild vague abdominal pain. The patient denies any history of angina. The patient has a known history of coronary artery disease and chronic atrial fibrillation. The patient had a previous heart cardiac catheterization with a stent placement. The last cardiac catheterization did not show any significant disease. Patient has a history of ischemic cardiomyopathy, atrial fibrillation with RVR. He had an unsuccessful cardioversion last time and the patient has been treated medically. The patient also has a history of polypectomy, colonoscopy, TURP, bilateral hydrocele surgery as well as the low back surgery. HOME MEDICATIONS: Include Lasix 80 mg daily, Lopressor 100 mg b.i.d., Flexeril 10 mg daily, Voltaren gel, insulin, Victoza 1.8 mg subcu daily, Zaroxolyn 2.5 mg daily, Zoloft 100 mg daily, Coumadin 5 mg daily and Atarax. PHYSICAL EXAMINATION: At present reveals a 78-year-old gentleman who is lying comfortably in the bed in the emergency room. Blood pressure is 90/62 mmHg. Patient's heart rate was 105, oxygen saturation was 94%. HEENT examination is negative. Neck is supple. There is no increase in jugular venous pressure. Both the carotid pulses are felt, there is no bruit. Chest is symmetrical. Heart, the PMI is not felt. First and second heart sounds are normal. Lungs examination reveals bilateral scattered rhonchi. Abdomen is negative. Extremities, peripheral pulsations are 1+. No significant leg edema is noted. Chest x-ray is suggestive of mild congestive cardiac failure. EKG shows atrial flutter with a controlled rate. Patient has minimal ST-T changes in lead V5 and V6. LABORATORY TESTS: Shows a hemoglobin of 7.3. INR is 4.0. Electrolytes are normal. Creatinine is 1.2 and the proBNP level is 3.15. This patient's previous troponin was normal. The patient's last BNP level on September 19 was 4800. FINAL IMPRESSION: 1. This patient is admitted with weakness and shortness of breath which is due to the combination of low hemoglobin and patient has underlying probably mild heart failure. 2. The patient has anemia, probably most like underlying significant gastrointestinal pathology needs to be ruled out. 3. Abnormal troponin. This could be due to the type 2 myocardial injury because of supply and demand mismatch. Patient has a mild ST-segment depression in V5 and V6. At present, medical treatment is recommended. At a later date patient can be either evaluated with a cardiac catheterization or stress test to rule out any underlying significant coronary artery disease. We will continue the patient on beta kavitha. Coumadin is being on hold. Serial troponins will be done. DIVINA / CIRON: [id number] /
[2018-11-01 05:03] LABS: Anisocytosis Slight; Basophils # (A) 0.1 k/uL (0-0.2); Basophils % (A) 1 %; Eosinophils # (A) 0.7 k/uL (0-0.7); Eosinophils % (A) 6 %; HCT 24.4 % (39.0-53.0); HGB 7.1 gm/dL (13.0-17.5); Hypochromasia Marked; Lymphocytes # (A) 1.5 k/uL (1.0-4.8); Lymphocytes % (A) 15 %; MCH 20.3 pg (25.0-35.0); MCHC 29.2 g/dL (31.0-37.0); MCV 69.4 fL (80.0-100.0); Mean Platelet Volume 6.9; Microcytosis Marked; Monocytes # (A) 0.8 k/uL (0-1.0); Monocytes % (A) 8 %; Neutrophils # (A) 6.9 k/uL (1.3-7.7); Neutrophils % (A) 68 %; Platelet Count 337 k/uL (150-450); Poikilocytosis Slight; RBC 3.51 m/uL (4.30-5.90); RDW 17.1 % (11.5-15.5); WBC 10.2 k/uL (3.8-10.6)
[2018-11-01 05:34] LABS: Calcium 8.3 mg/dL (8.4-10.2)
[2018-11-01 06:20] LABS: Potassium 4.2 mmol/L (3.5-5.1)
[2018-11-01 07:10] LABS: Glucose,Whole Blood 136 mg/dL (75-99)
[2018-11-01] MEDS: INSULIN ASPART (NovoLOG) 100 UNIT/ML VIAL SQ SCH ×3 (07:16→17:29)
[2018-11-01] MEDS: INSULIN DETEMIR (LEVEMIR) 100 UNIT/ML SYR SQ SCH (07:16)
[2018-11-01] MEDS: IPRATROPIUM-ALBUTEROL 3 ML NEB INHALATION PRN ×2 (07:48→18:54)
[2018-11-01] MEDS: CYCLOBENZAPRINE 10 MG TAB PO SCH ×3 (08:03→21:10)
[2018-11-01] MEDS: VIT A,C & E-LUTEIN-MINERALS 1 EACH TAB PO SCH (08:03)
[2018-11-01] MEDS: MAGNESIUM OXIDE 400 MG TAB PO SCH (08:03)
[2018-11-01] MEDS: METOPROLOL TARTRATE 25 MG TAB PO SCH (08:03)
[2018-11-01] MEDS: POTASSIUM CHLORIDE ER 10 MEQ TAB.ER.PRT PO SCH (08:03)
[2018-11-01] MEDS: ATORVASTATIN 80 MG TAB PO SCH (08:03)
[2018-11-01] MEDS: SERTRALINE 100 MG TAB PO SCH (08:03)
[2018-11-01] MEDS: FUROSEMIDE 80 MG TAB PO SCH (08:03)
[2018-11-01] MEDS ORDERED: ASPIRIN 325 MG TAB PO SCH (09:00)
[2018-11-01] MEDS ORDERED: INSULIN GLARGINE HUM REC ANLOG 50 UNIT SQ SCH (09:00)
[2018-11-01] MEDS ORDERED: METOPROLOL TARTRATE 25 MG TAB PO STA (10:07)
[2018-11-01] MEDS: ASPIRIN 81 MG PO SCH (10:12)
[2018-11-01] MEDS: PANTOPRAZOLE 40 MG/10 ML VIAL IVP SCH ×2 (10:12→21:10)
[2018-11-01 10:59] LABS: INR 2.7 (<1.2); Prothrombin Time 25.9 sec (9.0-12.0)
--- NOTE | 2018-11-01 11:15 | PN ---
PROGRESS NOTE This patient was admitted yesterday with generalized weakness and shortness of breath. I had evaluated the patient yesterday. The patient had a low hemoglobin. No evidence of any gross bleeding. He remains hemodynamically stable. Denies any chest pain. Denies any shortness of breath. Patient remains in atrial fibrillation with a heart rate of 90 to 100 per minute, oxygen saturation is 94%. Patient is slightly tachypneic. First and second heart sounds are normal. Lungs reveal few scattered wheezes. Abdomen is soft. The patient's hemoglobin is 7.1. Repeat creatinine is 1.13. The patient has been resumed on his oral dose of Zaroxolyn as well as he is getting Lasix 80 mg daily. Echocardiogram report is being awaited and GI consult is being awaited. The patient remains hemodynamically stable at present. Continue the current medications. MMODL / CIRON: [id number] /
[2018-11-01 11:52] LABS: Glucose,Whole Blood 178 mg/dL (75-99)
[2018-11-01] MEDS: CYANOCOBALAMIN 500 MCG TAB PO SCH (12:07)
[2018-11-01] MEDS: VITAMIN E (DL,TOCOPHERYL ACET) 400 UNIT CAP PO SCH (12:08)
[2018-11-01] MEDS: SODIUM CHLORIDE 0.9% 1,000 ML IV SCH (17:12)
[2018-11-01 17:21] LABS: Glucose,Whole Blood 139 mg/dL (75-99)
[2018-11-01 17:21] LABS: Glucose,Whole Blood 344 mg/dL (75-99)
--- NOTE | 2018-11-01 17:27 | P.HPIM ---
History of Present Illness H&P Date: 11/01/18 Chief Complaint: Short of breath tired History of presenting complaint: This is a 78-year-old patient was chronic stable medical conditions include diabetes, hyperlipidemia, hypertension, fibromyalgia, right-sided weakness from prior stroke and peripheral neuropathy. Patient also has got CHF with EF of 3035% underlying atrial fibrillation. Patient previously also's had a lumbar L3-L4 psych epidural abscess that was treated. Also known carotid artery disease with prior stent, depression uses a walker to baseline COPD presbyesophagus causing chronic dysphagia. Patient presents with feeling weak and tired. For about 4 days prior to come in and patient been having hematuria coty with stopped at her the day after he came in. He did receive antibiotics per his family doctor for possible UTI. is present with him. Patient is getting easily short winded now with taking a few steps only. Very anxious. Review of systems: GEN.: Tired dizzy short of breath EYES: None HEENT: Decreased hearing NECK: None RESPIRATORY: Short of breath with activity CARDIOVASCULAR: None GASTROINTESTINAL: Hematuria at home GENITOURINARY: Hematuria at home MUSCULOSKELETAL: Pain in some joints LYMPHATICS: None HEMATOLOGICAL: None PSYCHIATRY: Anxious NEUROLOGICAL: Right-sided weakness from prior stroke Past medical history: Epidural abscess at L3-L4, CHF EF 40%, atrial fibrillation, diabetes, hyperlipidemia, hypertension, fibromyalgia, hiatal hernia, right-sided weakness from prior stroke, herniated disc in the lumbar spine, coronary artery disease with stent, depression, A dysfunction uses a walker, COPD, presbyesophagus, Social history . Ex-smoker. No alcohol. Family history: Father prostate cancer Physical examination: VITAL SIGNS: 98.8, 105, 24, 90/62, 94% room air GENERAL: BMI 34.3, laying in bed, anxious. EYES: Pupils equal. Conjunctiva palel. HEENT: External appearance of nose and ears normal, oral cavity grossly normal, decreased hearing. NECK: JVD unable to assess, mass not palpable. HEART: First and second heart sounds are normal; no edema. LUNGS: Respiratory rate normal; decreased breath sounds. ABDOMEN: Soft, nontender, liver spleen not palpable, no masses palpable. PSYCH: Alert and oriented x3; mood and affect anxiousl. NEUROLOGICAL: Cranial nerves grossly intact; no facial asymmetry, decreased part of the right side. LYMPHATICS: No lymph nodes palpable in the axilla and neck INVESTIGATIONS, reviewed in the clinical context: White count 12.7 hemoglobin 7.3 platelets 369 INR 4 potassium 4.6 BUN 30 creatinine 1.2 to Accu-Cheks 200, 232 EKG tracing personally reviewed by me-atrial flutter fibrillation rate controlled Chest x-ray film personally reviewed by me-possibly vascular congestion with small pleural effusion Assessment: -Acute blood loss anemia in a patient who complains of coty hematuria for 4 days prior to coming in. Patient does states he had a cystoscopy in [place] some time ago that was unremarkable. Anemia symptomatic as patient rather weak tired dizzy short of breath. 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 Given that patient's significantly symptomatic with anemia we'll give her unit of blood. We'll give an extra dose of Lasix. We'll get a urology consultation. INR is on the higher side. We'll hold off the Coumadin tonight. Repeat CBC in the morning. Past Medical History Past Medical History: Atrial Fibrillation, Asthma, Coronary Artery Disease (CAD), Heart Failure, COPD, CVA/TIA, Diabetes Mellitus, Eye Disorder, Fibromyalgia, GERD/Reflux, Hyperlipidemia, Hypertension, Musculoskeletal Disorder, Osteoarthritis (OA), Pneumonia, Prostate Disorder Additional Past Medical History / Comment(s): IDDM type II, neuropathy bilateral feet, ischemic cardiomyopathy, Afib with RVR, 2008 CVA with R sided weaknes upper and lower extremities, gait dysfunction, bilateral eyes glaucoma, hiatal hernia and gets food "stuck" at times, chronic low back pain, herniated discs, TURP for BPH, insomnia History of Any Multi-Drug Resistant Organisms: None Reported Past Surgical History: Back Surgery, Heart Catheterization With Stent, Orthopedic Surgery, Prostate Surgery Additional Past Surgical History / Comment(s): PCI with stent to LAD in 2001, unsuccessful cardioversion in 2017, endoscopic sinus surgery/polypectomy, colonoscopy, TURP, bilateral hydrocelectomy, low back surgery. Past Anesthesia/Blood Transfusion Reactions: No Reported Reaction Date of Last Stent Placement:: 2001 Past Psychological History: Anxiety, Depression Additional Psychological History / Comment(s): He has been getting up with a walker. Smoking Status: Former smoker Past Alcohol Use History: None Reported Additional Past Alcohol Use History / Comment(s): Pt started smoking in 1957 and quit in 1989 Past Drug Use History: None Reported - Past Family History Mother Family Medical History: No Reported History Father Family Medical History: Cancer Additional Family Medical History / Comment(s): Father had prostrate cancer. Medications and Allergies Home Medications Medication Instructions Recorded Confirmed Type Triamcinolone 0.1% Cream [Kenalog 1 applic TOPICAL BID PRN 07/08/17 10/31/18 History 0.1% Cream] Furosemide [Lasix] 80 mg PO DAILY 09/04/17 10/31/18 History Metoprolol Tartrate [Lopressor] 100 mg PO BID@0800,1600 09/04/17 10/31/18 History Methadone [Dolophine] 5 mg PO Q8H #9 tab 09/13/17 10/31/18 Rx Omeprazole [PriLOSEC] 20 mg PO AC-BID@08,16 09/20/17 10/31/18 History Aspirin EC [Ecotrin Low Dose] 162 mg PO HS 10/31/18 10/31/18 History Cyanocobalamin (Vitamin B-12) 1,000 mcg PO DAILY@1200 10/31/18 10/31/18 History [Vitamin B-12] Cyclobenzaprine [Flexeril] 10 mg PO TID 10/31/18 10/31/18 History Diclofenac Sodium [Voltaren Gel] 2 gram TOPICAL QID 10/31/18 10/31/18 History Eye Vitamin 1 tab PO DAILY 10/31/18 10/31/18 History Fluticasone Nasal [place] [Flonase 2 spr EA NOSTRIL DAILY PRN 10/31/18 10/31/18 History Nasal [place]] Insulin Glargine,Hum.rec.anlog 50 units SQ DAILY 10/31/18 10/31/18 History [Maral Perla] Insulin Lispro [humaLOG Kwikpen] 4 unit SQ AC-LUNCH PRN 10/31/18 10/31/18 History Insulin Lispro [humaLOG Kwikpen] 5 unit SQ AC-BRKFST PRN 10/31/18 10/31/18 Histo ry Insulin Lispro [humaLOG Kwikpen] 5 unit SQ AC-SUPPER PRN 10/31/18 10/31/18 History Ipratropium-Albuterol Nebulize 3 ml INHALATION RT-TID PRN 10/31/18 10/31/18 History [Duoneb 0.5 mg-3 mg/3 ml Soln] Liraglutide [Victoza 2-Garry] 0.6 mg SQ DAILY 10/31/18 11/01/18 History Magnesium Oxide [Mag-Ox] 250 mg PO DAILY 10/31/18 10/31/18 History Metolazone [Zaroxolyn] 2.5 mg PO DAILY PRN 10/31/18 10/31/18 History Montelukast [Singulair] 10 mg PO HS 10/31/18 10/31/18 History Nitroglycerin Sl Tabs [Nitrostat] 0.4 mg SUBLINGUAL Q5M PRN 10/31/18 10/31/18 History Potassium Chloride ER [K-Dur 10] 10 meq PO DAILY 10/31/18 10/31/18 History Sertraline [Zoloft] 100 mg PO DAILY 10/31/18 10/31/18 History Vitamin E 100 unit PO DAILY@1200 10/31/18 10/31/18 History Warfarin [Coumadin] 5 mg PO HS 10/31/18 10/31/18 History hydrOXYzine HCL [Atarax] 25 mg PO TID PRN 10/31/18 10/31/18 History Allergies Allergy/AdvReac Type Severity Reaction Status Date / Time Sulfa (Sulfonamide Allergy Rash/Hives Verified 10/31/18 12:25 Antibiotics) Physical Exam Vitals: Vital Signs Temp Pulse Resp BP Pulse Ox 11/01/18 10:00 104 H 24 11/01/18 09:00 105 H 20 11/01/18 08:00 107 H 35 H 133/102 94 L 11/01/18 07:57 88 11/01/18 07:48 80 11/01/18 07:00 84 16 97 11/01/18 06:00 102 H 16 98 11/01/18 05:00 98.0 F 101 H 17 137/102 99 11/01/18 03:00 90 16 96 11/01/18 02:00 89 14 96 11/01/18 01:00 87 22 92 L 11/01/18 00:00 97.9 F 101 H 21 130/71 97 10/31/18 23:00 102 H 28 H 97 10/31/18 22:00 82 22 97 10/31/18 21:00 93 26 H 97 10/31/18 20:00 97.9 F 105 H 23 141/94 97 10/31/18 19:33 104 H 10/31/18 19:26 101 H 10/31/18 19:00 120 H 29 H 97 10/31/18 17:30 98.3 F 101 H 26 H 138/93 97 10/31/18 16:14 98.8 F 91 18 139/88 97 10/31/18 16:12 91 18 139/88 97 10/31/18 14:26 93 18 115/82 99 10/31/18 12:00 98.8 F 105 H 24 90/62 94 L Intake and Output 10/31/18 11/01/18 11/01/18 22:59 06:59 14:59 Intake Total 280 240 50 Output Total 250 250 Balance 280 -10 -200 Intake: Intake, IV Titration 40 50 Amount Sodium Chloride 0.9% 1, 40 000 ml @ 20 mls/hr IV . Q24H MARCELLE Rx#:[id number] cefTRIAXone 2 gm In 50 Sodium Chloride 0.9% 50 ml @ 100 mls/hr IVPB ONCE STA Rx#:[id number] Oral 240 240 Output: Urine 250 250 Other: Voiding Method Urinal Urinal Urinal # Voids 1 Weight 118 kg Results CBC & Chem 7: 11/01/18 04:33 11/01/18 04:33 Labs: Abnormal Lab Results - Last 24 Hours (Table) 10/31/18 10/31/18 10/31/18 Range/Units 12:07 12:07 12:07 WBC 12.7 H (3.8-10.6) k/uL RBC 3.75 L (4.30-5.90) m/uL Hgb 7.3 L (13.0-17.5) gm/dL Hct 24.8 L (39.0-53.0) % MCV 66.0 L (80.0-100.0) fL MCH 19.5 L (25.0-35.0) pg MCHC 29.5 L (31.0-37.0) g/dL RDW 17.4 H (11.5-15.5) % Neutrophils # 10.4 H (1.3-7.7) k/uL Lymphocytes # 0.8 L (1.0-4.8) k/uL Retic Count (0.5-2.0) % PT 38.4 H (9.0-12.0) sec INR 4.0 H (<1.2) APTT 39.2 H (22.0-30.0) sec Sodium 133 L (137-145) mmol/L Chloride 92 L (98-107) mmol/L Carbon Dioxide (22-30) mmol/L BUN 30 H (9-20) mg/dL Glucose 252 H (74-99) mg/dL POC Glucose (mg/dL) (75-99) mg/dL Calcium (8.4-10.2) mg/dL Troponin I (0.000-0.034) ng/mL Albumin 3.4 L (3.5-5.0) g/dL HDL Cholesterol (40-60) mg/dL Urine Protein (Negative) Urine Glucose (UA) (Negative) Urine Blood (Negative) Ur Leukocyte Esterase (Negative) Urine WBC (0-5) /hpf Hyaline Casts (0-2) /lpf Urine Mucus (None) /hpf 10/31/18 10/31/18 10/31/18 Range/Units 12:07 12:07 17:06 WBC (3.8-10.6) k/uL RBC (4.30-5.90) m/uL Hgb (13.0-17.5) gm/dL Hct (39.0-53.0) % MCV (80.0-100.0) fL MCH (25.0-35.0) pg MCHC (31.0-37.0) g/dL RDW (11.5-15.5) % Neutrophils # (1.3-7.7) k/uL Lymphocytes # (1.0-4.8) k/uL Retic Count (0.5-2.0) % PT (9.0-12.0) sec INR (<1.2) APTT (22.0-30.0) sec Sodium (137-145) mmol/L Chloride (98-107) mmol/L Carbon Dioxide (22-30) mmol/L BUN (9-20) mg/dL Glucose (74-99) mg/dL POC Glucose (mg/dL) 200 H (75-99) mg/dL Calcium (8.4-10.2) mg/dL Troponin I 3.150 H* (0.000-0.034) ng/mL Albumin (3.5-5.0) g/dL HDL Cholesterol (40-60) mg/dL Urine Protein Trace H (Negative) Urine Glucose (UA) 1+ H (Negative) Urine Blood Moderate H (Negative) Ur Leukocyte Esterase Moderate H (Negative) Urine WBC 13 H (0-5) /hpf Hyaline Casts 4 H (0-2) /lpf Urine Mucus Rare H (None) /hpf 10/31/18 10/31/18 10/31/18 Range/Units 18:36 18:36 20:49 WBC (3.8-10.6) k/uL RBC (4.30-5.90) m/uL Hgb (13.0-17.5) gm/dL Hct (39.0-53.0) % MCV (80.0-100.0) fL MCH (25.0-35.0) pg MCHC (31.0-37.0) g/dL RDW (11.5-15.5) % Neutrophils # (1.3-7.7) k/uL Lymphocytes # (1.0-4.8) k/uL Retic Count 3.0 H (0.5-2.0) % PT (9.0-12.0) sec INR (<1.2) APTT (22.0-30.0) sec Sodium (137-145) mmol/L Chloride (98-107) mmol/L Carbon Dioxide (22-30) mmol/L BUN (9-20) mg/dL Glucose (74-99) mg/dL POC Glucose (mg/dL) 232 H (75-99) mg/dL Calcium (8.4-10.2) mg/dL Troponin I 3.080 H* (0.000-0.034) ng/mL Albumin (3.5-5.0) g/dL HDL Cholesterol (40-60) mg/dL Urine Protein (Negative) Urine Glucose (UA) (Negative) Urine Blood (Negative) Ur Leukocyte Esterase (Negative) Urine WBC (0-5) /hpf Hyaline Casts (0-2) /lpf Urine Mucus (None) /hpf 11/01/18 11/01/18 11/01/18 Range/Units 00:41 00:41 04:33 WBC (3.8-10.6) k/uL RBC 3.66 L (4.30-5.90) m/uL Hgb 7.2 L (13.0-17.5) gm/dL Hct 24.4 L (39.0-53.0) % MCV 66.6 L (80.0-100.0) fL MCH 19.8 L (25.0-35.0) pg MCHC 29.7 L (31.0-37.0) g/dL RDW 17.1 H (11.5-15.5) % Neutrophils # (1.3-7.7) k/uL Lymphocytes # (1.0-4.8) k/uL Retic Count (0.5-2.0) % PT (9.0-12.0) sec INR (<1.2) APTT (22.0-30.0) sec Sodium 135 L (137-145) mmol/L Chloride 96 L (98-107) mmol/L Carbon Dioxide 35 H (22-30) mmol/L BUN 24 H (9-20) mg/dL Glucose 149 H (74-99) mg/dL POC Glucose (mg/dL) (75-99) mg/dL Calcium 8.3 L (8.4-10.2) mg/dL Troponin I 2.400 H* (0.000-0.034) ng/mL Albumin (3.5-5.0) g/dL HDL Cholesterol 26 L (40-60) mg/dL Urine Protein (Negative) Urine Glucose (UA) (Negative) Urine Blood (Negative) Ur Leukocyte Esterase (Negative) Urine WBC (0-5) /hpf Hyaline Casts (0-2) /lpf Urine Mucus (None) /hpf 11/01/18 11/01/18 Range/Units 04:33 07:08 WBC (3.8-10.6) k/uL RBC 3.51 L (4.30-5.90) m/uL Hgb 7.1 L (13.0-17.5) gm/dL Hct 24.4 L (39.0-53.0) % MCV 69.4 L (80.0-100.0) fL MCH 20.3 L (25.0-35.0) pg MCHC 29.2 L (31.0-37.0) g/dL RDW 17.1 H (11.5-15.5) % Neutrophils # (1.3-7.7) k/uL Lymphocytes # (1.0-4.8) k/uL Retic Count (0.5-2.0) % PT (9.0-12.0) sec INR (<1.2) APTT (22.0-30.0) sec Sodium (137-145) mmol/L Chloride (98-107) mmol/L Carbon Dioxide (22-30) mmol/L BUN (9-20) mg/dL Glucose (74-99) mg/dL POC Glucose (mg/dL) 136 H (75-99) mg/dL Calcium (8.4-10.2) mg/dL Troponin I (0.000-0.034) ng/mL Albumin (3.5-5.0) g/dL HDL Cholesterol (40-60) mg/dL Urine Protein (Negative) Urine Glucose (UA) (Negative) Urine Blood (Negative) Ur Leukocyte Esterase (Negative) Urine WBC (0-5) /hpf Hyaline Casts (0-2) /lpf Urine Mucus (None) /hpf Thrombosis Risk Factor Assmnt - Choose All That Apply Each Risk Factor Represents 2 Points: Patient confined to bed Each Risk Factor Represents 3 Points: Age 75 years or older Thrombosis Risk Factor Assessment Total Risk Factor Score: 5 Thrombosis Risk Factor Assessment Level: High Risk
[2018-11-01] MEDS: FUROSEMIDE 10 MG/ML 10 ML VIAL IV SCH (19:57)
[2018-11-01 20:20] LABS: Iron Saturation 1.27 (15.00-50.00)
[2018-11-01 20:50] LABS: Glucose,Whole Blood 153 mg/dL (75-99)
[2018-11-01] MEDS: METOPROLOL TARTRATE 50 MG TAB PO SCH (21:10)
[2018-11-01] MEDS: MONTELUKAST 10 MG TAB PO SCH (21:10)
--- NOTE | 2018-11-01 21:44 | CONS ---
CONSULTATION DATE OF DICTATION: November 01, 2018. REQUESTING PHYSICIAN: Dr. Escalona. REASON FOR CONSULTATION: Severe symptomatic anemia and Hemoccult-positive stool. HISTORY OF PRESENT ILLNESS: The patient is a pleasant 78 -year-old white male admitted to the intensive care unit when he presented with fatigue, weakness, shortness of breath. He went to the [facility] and was diagnosed with urinary tract infection and was discharged home. Because of ongoing symptoms, he came to the emergency room and subsequently was admitted to the hospital to the Intensive Care Unit with a hemoglobin of 7.5 g/dL. The patient has been on Coumadin for chronic atrial fibrillation and INR was 4 g/dL. He presently denies any abdominal pain. He reports no nausea or vomiting. No rectal bleeding or melena. He however was noted to have a Hemoccult-positive stool. His last colonoscopy was about 2 or 3 years ago and according to the patient, it was unremarkable. According to his , he had colon polyps. No history of peptic ulcer disease or recent NSAID use. PAST MEDICAL HISTORY: Significant for hypertension, atrial fibrillation, cardiomyopathy, history of colon polyps, arthritis, fibromyalgia, gastroesophageal reflux disease, hyperlipidemia, congestive heart failure, diabetes mellitus, history of CVA in the past. Right-sided weakness. PAST SURGICAL HISTORY: TURP, cardiac cath with stent placement, endoscopic sinus surgery, low back surgery. MEDICATIONS: At home include: Kenalog cream, Lasix, Lopressor, Prilosec, Ecotrin, Flexeril, Voltaren gel, Flonase, Trugel, albuterol, Victoza, magnesium oxide, and Zaroxolyn, Singulair, Nitrostat, K-Dur, Zoloft, vitamin E, and Coumadin. ALLERGIES: SULFA. SOCIAL HISTORY: No smoking. No alcohol use. FAMILY HISTORY: Mother unremarkable. Father prostate cancer. REVIEW OF SYSTEMS: Cardiopulmonary: No chest pain, shortness of breath. Genitourinary: No hematuria or dysuria. Musculoskeletal: Unremarkable. Skin unremarkable. Endocrine unremarkable. Psychiatric unremarkable. Neurology unremarkable. ENT/vision unremarkable. Constitutional: No recent weight loss. No fever, chills, night sweats. PHYSICAL EXAMINATION: Appears comfortable. No apparent distress. Vital signs stable. Blood pressure is 109/82, pulse rate 94, temperature afebrile. HEENT: Examination unremarkable. Conjunctivae pink. Sclerae anicteric. Oral cavity no lesions. NECK: No JVD or lymph node enlargement. CHEST: Clear to auscultation. HEART: Regular rate and rhythm. ABDOMEN: Soft. Bowel sounds are positive. No organomegaly. EXTREMITIES: No pedal edema. SKIN: No rashes. NEUROLOGIC: Alert and oriented x3. No focal deficits. LABS: Done at the time of admission to the hospital: WBC 12.7, hemoglobin 7.3, platelets 369. INR was 4 with a PTT of 38.4. Today, INR is 2.7, hemoglobin is 7.1, WBC 10.2, platelets are normal. BUN is 24 and creatinine 1.13. Troponin was 3.0. Urinalysis showed moderate amount of blood. IMPRESSION: 1. Severe symptomatic anemia with microcytosis with clinically no evidence of active ongoing bleeding most likely we are dealing with acute blood loss resulting in iron deficiency anemia. Last colonoscopy about [address] Boone revealed colon polyps. No upper gastrointestinal symptoms. 2. Atrial fibrillation on Coumadin. Last INR was 2.7. Coumadin on hold. 3. Atrial fibrillation with rapid ventricular heart rate. Cardiology following the patient. 4. Elevated troponins. RECOMMENDATIONS: 1. Monitor CBC daily and transfuse if hemoglobin is less than 7. 2. Obtain iron studies. 3. Consider EGD and colonoscopy during this hospitalization once INR is less than 1.5. 4. Continue to hold Coumadin. 5. Repeat CBC and PT/INR in the morning. The plan was discussed with the patient as well as his who was at the bedside. Thank you for this consultation. MMODL / IJN: [id number] /
[2018-11-02] MEDS: METHADONE 5 MG TAB PO SCH ×3 (02:07→17:25)
[2018-11-02 05:43] LABS: INR 1.9 (<1.2); Prothrombin Time 18.8 sec (9.0-12.0)
[2018-11-02 06:29] LABS: Anisocytosis Slight; HCT 24.4 % (39.0-53.0); HGB 7.3 gm/dL (13.0-17.5); Hypochromasia Marked; MCH 20.5 pg (25.0-35.0); MCV 68.4 fL (80.0-100.0); Mean Platelet Volume 6.4; Microcytosis Marked; Platelet Count 308 k/uL (150-450); Poikilocytosis Slight; RBC 3.57 m/uL (4.30-5.90); RDW 17.8 % (11.5-15.5); WBC 7.7 k/uL (3.8-10.6)
[2018-11-02 06:34] LABS: Calcium 8.2 mg/dL (8.4-10.2)
[2018-11-02 06:56] LABS: Glucose,Whole Blood 165 mg/dL (75-99)
[2018-11-02] MEDS: FUROSEMIDE 10 MG/ML 10 ML VIAL IV SCH (06:57)
[2018-11-02] MEDS: INSULIN DETEMIR (LEVEMIR) 100 UNIT/ML SYR SQ SCH (07:22)
[2018-11-02] MEDS: INSULIN ASPART (NovoLOG) 100 UNIT/ML VIAL SQ SCH ×3 (07:22→17:24)
[2018-11-02] MEDS: IPRATROPIUM-ALBUTEROL 3 ML NEB INHALATION PRN ×2 (07:37→20:10)
[2018-11-02] MEDS: ATORVASTATIN 80 MG TAB PO SCH (09:30)
[2018-11-02] MEDS: METOPROLOL TARTRATE 50 MG TAB PO SCH ×2 (09:30→20:48)
[2018-11-02] MEDS: CYCLOBENZAPRINE 10 MG TAB PO SCH ×3 (09:30→20:48)
[2018-11-02] MEDS: MAGNESIUM OXIDE 400 MG TAB PO SCH (09:30)
[2018-11-02] MEDS: ASPIRIN 81 MG PO SCH (09:30)
[2018-11-02] MEDS: PANTOPRAZOLE 40 MG/10 ML VIAL IVP SCH ×2 (09:31→20:48)
[2018-11-02] MEDS: SERTRALINE 100 MG TAB PO SCH (09:31)
[2018-11-02] MEDS: VIT A,C & E-LUTEIN-MINERALS 1 EACH TAB PO SCH (09:31)
[2018-11-02] MEDS: TRIAMCINOLONE 0.1% CREAM 80 GM TUBE TOPICAL PRN (09:31)
[2018-11-02] MEDS: DICLOFENAC SODIUM GEL 100 GM TUBE TOPICAL SCH ×4 (09:32→22:30)
[2018-11-02] MEDS: FUROSEMIDE 80 MG TAB PO SCH (09:32)
[2018-11-02] MEDS: POTASSIUM CHLORIDE ER 10 MEQ TAB.ER.PRT PO SCH (09:34)
[2018-11-02] MEDS: hydrOXYzine HCL 25 MG TAB PO PRN (10:24)
[2018-11-02 11:47] LABS: Glucose,Whole Blood 189 mg/dL (75-99)
[2018-11-02] MEDS: VITAMIN E (DL,TOCOPHERYL ACET) 400 UNIT CAP PO SCH (12:19)
[2018-11-02] MEDS: CYANOCOBALAMIN 500 MCG TAB PO SCH (12:19)
--- NOTE | 2018-11-02 14:53 | P.GSCN ---
History of Present Illness Consult date: 11/02/18 Reason for Consult: Hematuria Requesting physician: Ephraim Underwood History of present illness: Mr. Flores is 78 yo male that is admitted to the hospital for weakness. Urology is consulted for gross hematuria. He indicated he was diagnosed with UTI and was started on abx, and that's when he firsted noticed the hematuria. He indicated since starting the abx he has noticed that his hematuria has improved and today he denies any hematuria. Denies passing any blood clots. He has hematuria in the past and per patient he was worked up at [place] last year with cystoscopy and CT abd/pelvis which showed no pathology. Denies any voiding symptoms at baseline. Review of Systems - Constitutional Reports weakness, Denies chills, Denies fever - Gastrointestinal Denies nausea, Denies vomiting - Genitourinary Reports hematuria, Denies flank pain - Neurological Reports weakness, Denies aphasia, Denies confusion Past Medical History Past Medical History: Atrial Fibrillation, Asthma, Coronary Artery Disease (CAD), Heart Failure, COPD, CVA/TIA, Diabetes Mellitus, Eye Disorder, Fibromyalgia, GERD/Reflux, Hyperlipidemia, Hypertension, Musculoskeletal Disorder, Osteoarthritis (OA), Pneumonia, Prostate Disorder Additional Past Medical History / Comment(s): IDDM type II, neuropathy bilateral feet, ischemic cardiomyopathy, Afib with RVR, 2009 CVA with R sided weaknes upper and lower extremities, gait dysfunction, bilateral eyes glaucoma, hiatal hernia and gets food "stuck" at times, chronic low back pain, herniated discs, TURP for BPH, insomnia History of Any Multi-Drug Resistant Organisms: None Reported Past Surgical History: Back Surgery, Heart Catheterization With Stent, Orthopedic Surgery, Prostate Surgery Additional Past Surgical History / Comment(s): PCI with stent to LAD in 2001, unsuccessful cardioversion in 2017, endoscopic sinus surgery/polypectomy, colonoscopy, TURP, bilateral hydrocelectomy, low back surgery. Past Anesthesia/Blood Transfusion Reactions: No Reported Reaction Date of Last Stent Placement:: 2001 Past Psychological History: Anxiety, Depression Additional Psychological History / Comment(s): He has been getting up with a walker. Smoking Status: Former smoker Past Alcohol Use History: None Reported Additional Past Alcohol Use History / Comment(s): Pt started smoking in 10 and quit in 1989 Past Drug Use History: None Reported - Past Family History Mother Family Medical History: No Reported History Father Family Medical History: Cancer Additional Family Medical History / Comment(s): Father had prostrate cancer. Medications and Allergies Home Medications Medication Instructions Recorded Confirmed Type Triamcinolone 0.1% Cream [Kenalog 1 applic TOPICAL BID PRN 07/08/17 10/31/18 History 0.1% Cream] Furosemide [Lasix] 80 mg PO DAILY 09/04/17 10/31/18 History Metoprolol Tartrate [Lopressor] 100 mg PO BID@0800,1600 09/04/17 10/31/18 History Methadone [Dolophine] 5 mg PO Q8H #9 tab 09/13/17 10/31/18 Rx Omeprazole [PriLOSEC] 20 mg PO AC-BID@08,16 09/20/17 10/31/18 History Aspirin EC [Ecotrin Low Dose] 162 mg PO HS 10/31/18 10/31/18 History Cyanocobalamin (Vitamin B-12) 1,000 mcg PO DAILY@1200 10/31/18 10/31/18 History [Vitamin B-12] Cyclobenzaprine [Flexeril] 10 mg PO TID 10/31/18 10/31/18 History Diclofenac Sodium [Voltaren Gel] 2 gram TOPICAL QID 10/31/18 10/31/18 History Eye Vitamin 1 tab PO DAILY 10/31/18 10/31/18 History Fluticasone Nasal [place] [Flonase 2 spr EA NOSTRIL DAILY PRN 10/31/18 10/31/18 History Nasal [place]] Insulin Glargine,Hum.rec.anlog 50 units SQ DAILY 10/31/18 10/31/18 History [Maral Perla] Insulin Lispro [humaLOG Kwikpen] 4 unit SQ AC-LUNCH PRN 10/31/18 10/31/18 History Insulin Lispro [humaLOG Kwikpen] 5 unit SQ AC-BRKFST PRN 10/31/18 10/31/18 History Insulin Lispro [humaLOG Kwikpen] 5 unit SQ AC-SUPPER PRN 10/31/18 10/31/18 History Ipratropium-Albuterol Nebulize 3 ml INHALATION RT-TID PRN 10/31/18 10/31/18 History [Duoneb 0.5 mg-3 mg/3 ml Soln] Liraglutide [Victoza 2-Garry] 0.6 mg SQ DAILY 10/31/18 11/01/18 History Magnesium Oxide [Mag-Ox] 250 mg PO DAILY 10/31/18 10/31/18 History Metolazone [Zaroxolyn] 2.5 mg PO DAILY PRN 10/31/18 10/31/18 History Montelukast [Singulair] 10 mg PO HS 10/31/18 10/31/18 History Nitroglycerin Sl Tabs [Nitrostat] 0.4 mg SUBLINGUAL Q5M PRN 10/31/18 10/31/18 History Potassium Chloride ER [K-Dur 10] 10 meq PO DAILY 10/31/18 10/31/18 History Sertraline [Zoloft] 100 mg PO DAILY 10/31/18 10/31/18 History Vitamin E 100 unit PO DAILY@1200 10/31/18 10/31/18 History Warfarin [Coumadin] 5 mg PO HS 10/31/18 10/31/18 History hydrOXYzine HCL [Atarax] 25 mg PO TID PRN 10/31/18 10/31/18 History Allergies Allergy/AdvReac Type Severity Reaction Status Date / Time Sulfa (Sulfonamide Allergy Rash/Hives Verified 10/31/18 12:25 Antibiotics) Surgical - Exam Vital Signs Temp Pulse Resp BP Pulse Ox 98.8 F 105 H 24 90/62 94 L 10/31/18 12:00 10/31/18 12:00 10/31/18 12:00 10/31/18 12:00 10/31/18 12:00 - General no distress, no pain - Eyes normal ocular movement, no loss of movement - ENT normal nares, no hearing loss - Respiratory normal expansion, normal respiratory effort - Abdomen Abdomen: soft, non tender - Psychiatric oriented to time, oriented to person, oriented to place Results - Labs 11/02/18 05:13 11/02/18 05:13 Abnormal Lab Results - Last 24 Hours (Table) 11/01/18 11/01/18 11/01/18 Range/Units 10:59 11:51 15:17 RBC (4.30-5.90) m/uL Hgb (13.0-17.5) gm/dL Hct (39.0-53.0) % MCV (80.0-100.0) fL MCH (25.0-35.0) pg MCHC (31.0-37.0) g/dL RDW (11.5-15.5) % PT (9.0-12.0) sec INR (<1.2) Sodium (137-145) mmol/L Chloride (98-107) mmol/L Carbon Dioxide (22-30) mmol/L BUN (9-20) mg/dL Glucose (74-99) mg/dL POC Glucose (mg/dL) 178 H (75-99) mg/dL Calcium (8.4-10.2) mg/dL Iron 5 L (65-175) ug/dL Iron Saturation 1.27 L (15.00-50.00) Ferritin 18.6 L (22.0-322.0) ng/mL Crossmatch See Detail 11/01/18 11/01/18 11/01/18 Range/Units 17:19 17:20 20:48 RBC (4.30-5.90) m/uL Hgb (13.0-17.5) gm/dL Hct (39.0-53.0) % MCV (80.0-100.0) fL MCH (25.0-35.0) pg MCHC (31.0-37.0) g/dL RDW (11.5-15.5) % PT (9.0-12.0) sec INR (<1.2) Sodium (137-145) mmol/L Chloride (98-107) mmol/L Carbon Dioxide (22-30) mmol/L BUN (9-20) mg/dL Glucose (74-99) mg/dL POC Glucose (mg/dL) 344 H 139 H 153 H (75-99) mg/dL Calcium (8.4-10.2) mg/dL Iron (65-175) ug/dL Iron Saturation (15.00-50.00) Ferritin (22.0-322.0) ng/mL Crossmatch 11/02/18 11/02/18 11/02/18 Range/Units 05:13 05:13 05:13 RBC 3.57 L (4.30-5.90) m/uL Hgb 7.3 L (13.0-17.5) gm/dL Hct 24.4 L (39.0-53.0) % MCV 68.4 L (80.0-100.0) fL MCH 20.5 L (25.0-35.0) pg MCHC 30.0 L (31.0-37.0) g/dL RDW 17.8 H (11.5-15.5) % PT 18.8 H (9.0-12.0) sec INR 1.9 H (<1.2) Sodium 134 L (137-145) mmol/L Chloride 94 L (98-107) mmol/L Carbon Dioxide 34 H (22-30) mmol/L BUN 27 H (9-20) mg/dL Glucose 149 H (74-99) mg/dL POC Glucose (mg/dL) (75-99) mg/dL Calcium 8.2 L (8.4-10.2) mg/dL Iron (65-175) ug/dL Iron Saturation (15.00-50.00) Ferritin (22.0-322.0) ng/mL Crossmatch 11/02/18 Range/Units 06:54 RBC (4.30-5.90) m/uL Hgb (13.0-17.5) gm/dL Hct (39.0-53.0) % MCV (80.0-100.0) fL MCH (25.0-35.0) pg MCHC (31.0-37.0) g/dL RDW (11.5-15.5) % PT (9.0-12.0) sec INR (<1.2) Sodium (137-145) mmol/L Chloride (98-107) mmol/L Carbon Dioxide (22-30) mmol/L BUN (9-20) mg/dL Glucose (74-99) mg/dL POC Glucose (mg/dL) 165 H (75-99) mg/dL Calcium (8.4-10.2) mg/dL Iron (65-175) ug/dL Iron Saturation (15.00-50.00) Ferritin (22.0-322.0) ng/mL Crossmatch Microbiology - Last 24 Hours (Table) 10/31/18 12:07 Urine Culture - Final Urine,Voided Diabetes panel 11/02/18 Range/Units 05:13 Sodium 134 L (137-145) mmol/L Potassium 4.0 (3.5-5.1) mmol/L Chloride 94 L (98-107) mmol/L Carbon Dioxide 34 H (22-30) mmol/L BUN 27 H (9-20) mg/dL Creatinine 1.18 (0.66-1.25) mg/dL Glucose 149 H (74-99) mg/dL Calcium 8.2 L (8.4-10.2) mg/dL Calcium panel 11/02/18 Range/Units 05:13 Calcium 8.2 L (8.4-10.2) mg/dL Pituitary panel 11/02/18 Range/Units 05:13 Sodium 134 L (137-145) mmol/L Potassium 4.0 (3.5-5.1) mmol/L Chloride 94 L (98-107) mmol/L Carbon Dioxide 34 H (22-30) mmol/L BUN 27 H (9-20) mg/dL Creatinine 1.18 (0.66-1.25) mg/dL Glucose 149 H (74-99) mg/dL Calcium 8.2 L (8.4-10.2) mg/dL Adrenal panel 11/02/18 Range/Units 05:13 Sodium 134 L (137-145) mmol/L Potassium 4.0 (3.5-5.1) mmol/L Chloride 94 L (98-107) mmol/L Carbon Dioxide 34 H (22-30) mmol/L BUN 27 H (9-20) mg/dL Creatinine 1.18 (0.66-1.25) mg/dL Glucose 149 H (74-99) mg/dL Calcium 8.2 L (8.4-10.2) mg/dL Assessment and Plan Assessment: 78 yo male admitted with weakness, urology is consulted for gross hematuria secondary to UTI. Had previous hematuria workup at [place] with his urologist. Plan: -Hematuria most likely secondary to UTI, no need of repeat Hematuria workup given his negative workup last year with his outside urology -Please obtain PVR -Can F/U with his [place] urologist in 3 months
--- NOTE | 2018-11-02 15:34 | PN ---
PROGRESS NOTE This patient has a known coronary artery disease, chronic atrial fibrillation. The patient was admitted with a low hemoglobin. Patient had abnormal troponin, did not complain of any chest pain. Patient has hemodynamically remained stable. His hemoglobin remained 7.2. The patient's initial INR was elevated. The patient is doing well. Denies any shortness of breath, orthopnea, PND or chest discomfort. Patient's heart rate is 80 to 90 per minute, blood pressure is 118/77 mmHg, oxygen saturation is 95%. First and second heart sounds are normal. Lungs are clinically clear to auscultation and percussion. Abdomen is soft. Liver and spleen are not enlarged. Extremities, peripheral pulsations are 2+. The patient's echocardiogram reveals ejection fraction of 35% to 40%. IMPRESSION: This patient had abnormal troponin suggestive of type 2 myocardial injury, possibly secondary to anemia to chronic atrial fibrillation with a controlled ventricular rate. We will continue the patient on current medications. Patient is going plan to have a colonoscopy in the next couple of days. MMODL / IJN: [id number] /
--- NOTE | 2018-11-02 15:42 | CDI ---
Documentation Clarification Form Date: 11/02/2018 3:15:26 PM From: Stephanie Zarate RN, CCDS Admit Date: 10/31/2018 2:17:00 PM Patient Name: Traivs Flores Visit Number: [id number] Discharge Date: ATTENTION: The Clinical Documentation Specialists (CDI) and [facility] Coding Staff appreciate your assistance in clarifying documentation. Please respond to the clarification below the line at the bottom and electronically sign. The CDI & [facility] Coding staff will review the response and follow-up if needed. Please note: Queries are made part of the Legal Health Record. If you have any questions, please contact the author of this message via ITS. Dr. Ephraim Underwood Conflicting documentation has been found in the medical record and clarification is needed. 10/31/18 Cardiology Consult ( Dr. Gamaliel Mesa) Abnormal troponin. This could be due to the type 2 myocardial injury because of supply and demand mismatch Patient has a mild ST-segment depression in V5 and V6. At present, medical treatment is recommended. 11/01/18 H/P: Acute non-q wave myocardial infarction History/Risk Factors: Ischemic Cardiomyopathy, Atrial Fibrillation, Chronic systolic CHF, CVA, CAD, COPD, Clinical Indicators: 78-year-old male who admits with weakness and shortness of breath with HGB 7.3 and having gross hematuria 90/62 105 24 98.8 94 % ROOM AIR Labs: HGB 7.3, 7.2, 7.1 HCT 24.8, 24.4, 24.4 Troponin 3.50, 3.080, 2.400 Treatment: Monitor CBC Transfuse unit of blood Serial troponins Lasix IV, (now po) Hold Coumadin In your opinion, what is the most clinically appropriate diagnosis for this patient? Type 2 LA due to supply and demand mismatch Acute Non-Q-wave myocardial infarction Other explanation of clinical findings Unable to determine (no explanation for clinical findings) (Last Revision: May 2017) ACUTE NON-Q LA MTDD
[2018-11-02] MEDS: SODIUM CHLORIDE 0.9% 1,000 ML IV SCH (16:42)
[2018-11-02 17:19] LABS: Glucose,Whole Blood 165 mg/dL (75-99)
[2018-11-02 17:25] LABS: Glucose,Whole Blood 151 mg/dL (75-99)
[2018-11-02] MEDS: MONTELUKAST 10 MG TAB PO SCH (20:48)
--- NOTE | 2018-11-02 20:52 | P.PN ---
Progress Note - Text Progress Note Date: 11/02/18 Chief Complaint: Short of breath tired Interval history: This is a 78-year-old patient was chronic stable medical conditions include diabetes, hyperlipidemia, hypertension, fibromyalgia, right-sided weakness from prior stroke and peripheral neuropathy. Patient also has got CHF with EF of 3035% underlying atrial fibrillation. Patient previously also's had a lumbar L3-L4 psych epidural abscess that was treated. Also known carotid artery disease with prior stent, depression uses a walker to baseline COPD presbyesophagus causing chronic dysphagia. Patient presents with feeling weak and tired. For about 4 days prior to come in and patient been having hematuria coty with stopped at her the day after he came in. He did receive antibiotics per his family doctor for possible UTI. is present with him. Patient is getting easily short winded now with taking a few steps only. Very anxious. Admitted with acute blood loss anemia felt to be combination of possibly GI and hematuria at home. Did receive a unit of blood. Also received extra dose of IV Lasix. Today-in the ICU. Feeling much better. More peppy. Did walk a few steps. Did tolerate some diet. Review of systems: Was done for constitutional, cardiovascular, GI, pulmonary. relevant finding as above Active Medications Albuterol/Ipratropium (Duoneb 0.5 Mg-3 Mg/3 Ml Soln) 3 ml INHALATION RT-TID PRN PRN Reason: Shortness Of Breath Last Admin: 11/02/18 20:10 Dose: 3 ml Documented by: Aspirin (Aspirin) 81 mg PO DAILY [facility] Last Admin: 11/02/18 09:30 Dose: 81 mg Documented by: Atorvastatin Calcium (Lipitor) 80 mg PO DAILY [facility] Last Admin: 11/02/18 09:30 Dose: 80 mg Documented by: Cyanocobalamin (Vitamin B-12) 1,000 mcg PO DAILY@1200 [facility] Last Admin: 11/02/18 12:19 Dose: 1,000 mcg Documented by: Cyclobenzaprine HCl (Flexeril) 10 mg PO TID [facility] Last Admin: 11/02/18 20:48 Dose: 10 mg Documented by: Diclofenac Sodium (Voltaren Gel) 2 gm TOPICAL QID [facility] Last Admin: 11/02/18 17:25 Dose: 2 gm Documented by: Fluticasone Propionate (Flonase Nasal [place]) 2 spray EA NOSTRIL DAILY PRN PRN Reason: Allergy Symptoms Furosemide (Lasix) 80 mg PO DAILY [facility] Last Admin: 11/02/18 09:32 Dose: 80 mg Documented by: Hydroxyzine HCl (Atarax) 25 mg PO TID PRN PRN Reason: Itching Last Admin: 11/02/18 10:24 Dose: 25 mg Documented by: Sodium Chloride (Saline 0.9%) 1,000 mls @ 20 mls/hr IV .Q24H [facility] Last Admin: 11/02/18 16:42 Dose: Not Given Documented by: Ceftriaxone Sodium 1 gm/ (Sodium Chloride) 50 mls @ 100 mls/hr IVPB Q24HR [facility] Last Admin: 11/02/18 09:31 Dose: 100 mls/hr Documented by: Insulin Aspart (Novolog) 5 unit SQ AC-BID [facility] Last Admin: 11/02/18 17:24 Dose: 5 unit Documented by: Insulin Aspart (Novolog) 4 unit SQ 1200 [facility] Last Admin: 11/02/18 12:00 Dose: 4 unit Documented by: Insulin Detemir (Levemir) 50 unit SQ DAILY@0700 [facility] Last Admin: 11/02/18 07:22 Dose: 50 unit Documented by: Magnesium Oxide (Mag-Ox) 400 mg PO DAILY [facility] Last Admin: 11/02/18 09:30 Dose: 400 mg Documented by: Methadone HCl (Dolophine) 5 mg PO Q8H [facility] Last Admin: 11/02/18 17:25 Dose: 5 mg Documented by: Metolazone (Zaroxolyn) 2.5 mg PO DAILY PRN PRN Reason: Edema Metoprolol Tartrate (Lopressor) 50 mg PO BID [facility] Last Admin: 11/02/18 20:48 Dose: 50 mg Documented by: Montelukast Sodium (Singulair) 10 mg PO HS [facility] Last Admin: 11/02/18 20:48 Dose: 10 mg Documented by: Multivitamins/Minerals (Ivite) 1 each PO DAILY [facility] Last Admin: 11/02/18 09:31 Dose: 1 each Documented by: Nitroglycerin (Nitrostat) 0.4 mg SUBLINGUAL Q5M PRN PRN Reason: Chest Pain Liraglutide [Victoza (]) 0.6 mg SQ DAILY [facility] Last Admin: 11/02/18 09:34 Dose: 0.6 mg Documented by: Pantoprazole Sodium (Protonix) 40 mg IVP BID [facility] Last Admin: 11/02/18 20:48 Dose: 40 mg Documented by: Potassium Chloride (K-Dur 10) 10 meq PO DAILY [facility] Last Admin: 11/02/18 09:34 Dose: 10 meq Documented by: Sertraline HCl (Zoloft) 100 mg PO DAILY [facility] Last Admin: 11/02/18 09:31 Dose: 100 mg Documented by: Triamcinolone Acetonide (Kenalog) 1 applic TOPICAL BID PRN PRN Reason: Itching Last Admin: 11/02/18 09:31 Dose: 1 applic Documented by: Vitamin E (Vitamin E) 400 unit PO DAILY@1200 [facility] Last Admin: 11/02/18 12:19 Dose: 400 unit Documented by: Physical examination: VITAL SIGNS: 98.1, 96, 21, 115/69, 95% on 2 L GENERAL: Sitting up in a chair, feeling better more restful EYES: Pupils equal. Conjunctiva palel. HEENT: External appearance of nose and ears normal, oral cavity grossly normal, decreased hearing. NECK: JVD unable to assess, mass not palpable. HEART: First and second heart sounds are normal; no edema. LUNGS: Respiratory rate normal; decreased breath sounds. ABDOMEN: Soft, nontender, liver spleen not palpable, no masses palpable. PSYCH: Alert and oriented x3; mood and affect anxiousl. NEUROLOGICAL: Cranial nerves grossly intact; no facial asymmetry, decreased power of the right side. INVESTIGATIONS, reviewed in the clinical context: White count 7.7 hemoglobin 7.3 INR 1.9 bun 27 creatinine 1.18 Previous testing White count 12.7 hemoglobin 7.3 platelets 369 INR 4 potassium 4.6 BUN 30 creatinine 1.2 to Accu-Cheks 200, 232 EKG tracing personally reviewed by me-atrial flutter fibrillation rate controlled Chest x-ray film personally reviewed by me-possibly vascular congestion with small pleural effusion Assessment: -Acute blood loss anemia in a patient who complains of coty hematuria for 4 days prior to coming in. Patient does states he had a cystoscopy in [place] some time ago that was unremarkable. Need to rule out a GI cause. 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 Not for any intervention at present time. Seen by Dr. Shazia Ruiz from GI. Endoscopy when INR is less than 1.9. Patient overall doing much better. Follow.
[2018-11-02] MEDS ORDERED: PHYTONADIONE ORAL 5 MG/5 ML ORAL.SYRG PO ONE (21:00)
[2018-11-03] MEDS: METHADONE 5 MG TAB PO SCH ×3 (03:00→17:32)
[2018-11-03 04:51] LABS: Anisocytosis Slight; HCT 24.9 % (39.0-53.0); HGB 7.4 gm/dL (13.0-17.5); Hypochromasia Marked; MCH 21.1 pg (25.0-35.0); MCHC 29.8 g/dL (31.0-37.0); MCV 70.6 fL (80.0-100.0); Mean Platelet Volume 6.5; Microcytosis Marked; Platelet Count 323 k/uL (150-450); Poikilocytosis Moderate; RBC 3.53 m/uL (4.30-5.90); RDW 17.6 % (11.5-15.5)
[2018-11-03 05:05] LABS: Calcium 8.1 mg/dL (8.4-10.2); Potassium 4.2 mmol/L (3.5-5.1)
[2018-11-03 06:45] LABS: Glucose,Whole Blood 126 mg/dL (75-99)
[2018-11-03] MEDS: INSULIN DETEMIR (LEVEMIR) 100 UNIT/ML SYR SQ SCH (07:16)
[2018-11-03] MEDS: IPRATROPIUM-ALBUTEROL 3 ML NEB INHALATION PRN ×2 (08:15→19:09)
[2018-11-03] MEDS: INSULIN ASPART (NovoLOG) 100 UNIT/ML VIAL SQ SCH ×3 (08:35→17:34)
[2018-11-03] MEDS: PANTOPRAZOLE 40 MG/10 ML VIAL IVP SCH (08:35)
[2018-11-03] MEDS: POTASSIUM CHLORIDE ER 10 MEQ TAB.ER.PRT PO SCH (08:36)
[2018-11-03] MEDS: SERTRALINE 100 MG TAB PO SCH (08:36)
[2018-11-03] MEDS: MAGNESIUM OXIDE 400 MG TAB PO SCH (08:36)
[2018-11-03] MEDS: ATORVASTATIN 80 MG TAB PO SCH (08:36)
[2018-11-03] MEDS: CYCLOBENZAPRINE 10 MG TAB PO SCH ×3 (08:37→22:14)
[2018-11-03] MEDS: FUROSEMIDE 80 MG TAB PO SCH (08:37)
[2018-11-03] MEDS: ASPIRIN 81 MG PO SCH (08:37)
[2018-11-03] MEDS: METOPROLOL TARTRATE 50 MG TAB PO SCH ×2 (08:37→22:13)
[2018-11-03] MEDS: VIT A,C & E-LUTEIN-MINERALS 1 EACH TAB PO SCH (08:37)
[2018-11-03] MEDS: DICLOFENAC SODIUM GEL 100 GM TUBE TOPICAL SCH ×4 (08:38→22:14)
--- NOTE | 2018-11-03 10:24 | P.PN ---
Subjective Progress Note Date: 11/02/18 Principal diagnosis: Iron deficiency anemia Patient is seen lying in bed with bedside. She has been tolerating his diet. No abdominal pain. Denies any signs or symptoms of GI bleeding. Objective - Vital Signs Vital signs: Vital Signs Temp 98.1 F 11/02/18 08:00 Pulse 89 11/02/18 10:00 Resp 24 11/02/18 10:00 BP 118/77 11/02/18 10:00 Pulse Ox 94 L 11/02/18 10:00 Intake & Output 11/01/18 11/02/18 11/02/18 18:59 06:59 18:59 Intake Total 360 400 50 Output Total 625 800 Balance -265 -400 50 Weight 117 kg Intake: Intake, IV Titration 50 50 Amount cefTRIAXone 1 gm In 50 Sodium Chloride 0.9% 50 ml @ 100 mls/hr IVPB Q24HR [facility] Rx#:[id number] cefTRIAXone 2 gm In 50 Sodium Chloride 0.9% 50 ml @ 100 mls/hr IVPB ON[facility] Rx#:[id number] Oral 400 Blood Product 310 Rc As-1 Unit 310 [id number] Output: Urine 625 800 Other: Voiding Method Urinal # Voids 1 2 - Exam On physical examination, patient appears comfortable in no apparent distress. HEAD: Normocephalic, atraumatic. EYES: No scleral icterus. No conjunctival injection. MOUTH: No lesions, tongue midline. NECK: Trachea midline, no gross abnormalities. CHEST: Decreased air entry bilaterally. HEART: S1-S2 appreciated. ABDOMEN: Soft, obese. Bowel sounds are positive. No organomegaly. No guarding or rigidity. EXTREMITIES: No pedal edema. SKIN: No rashes, no jaundice. NEUROLOGIC: Alert and oriented x3. No focal deficits. - Labs CBC & Chem 7: 11/03/18 04:36 11/03/18 04:36 Labs: Abnormal Lab Results - Last 24 Hours (Table) 11/01/18 11/01/18 11/01/18 Range/Units 10:59 15:17 17:19 RBC (4.30-5.90) m/uL Hgb (13.0-17.5) gm/dL Hct (39.0-53.0) % MCV (80.0-100.0) fL MCH (25.0-35.0) pg MCHC (31.0-37.0) g/dL RDW (11.5-15.5) % PT (9.0-12.0) sec INR (<1.2) Sodium (137-145) mmol/L Chloride (98-107) mmol/L Carbon Dioxide (22-30) mmol/L BUN (9-20) mg/dL Glucose (74-99) mg/dL POC Glucose (mg/dL) 344 H (75-99) mg/dL Calcium (8.4-10.2) mg/dL Iron 5 L (65-175) ug/dL Iron Saturation 1.27 L (15.00-50.00) Ferritin 18.6 L (22.0-322.0) ng/mL Crossmatch See Detail 11/01/18 11/01/18 11/02/18 Range/Units 17:20 20:48 05:13 RBC (4.30-5.90) m/uL Hgb (13.0-17.5) gm/dL Hct (39.0-53.0) % MCV (80.0-100.0) fL MCH (25.0-35.0) pg MCHC (31.0-37.0) g/dL RDW (11.5-15.5) % PT 18.8 H (9.0-12.0) sec INR 1.9 H (<1.2) Sodium (137-145) mmol/L Chloride (98-107) mmol/L Carbon Dioxide (22-30) mmol/L BUN (9-20) mg/dL Glucose (74-99) mg/dL POC Glucose (mg/dL) 139 H 153 H (75-99) mg/dL Calcium (8.4-10.2) mg/dL Iron (65-175) ug/dL Iron Saturation (15.00-50.00) Ferritin (22.0-322.0) ng/mL Crossmatch 11/02/18 11/02/18 11/02/18 Range/Units 05:13 05:13 06:54 RBC 3.57 L (4.30-5.90) m/uL Hgb 7.3 L (13.0-17.5) gm/dL Hct 24.4 L (39.0-53.0) % MCV 68.4 L (80.0-100.0) fL MCH 20.5 L (25.0-35.0) pg MCHC 30.0 L (31.0-37.0) g/dL RDW 17.8 H (11.5-15.5) % PT (9.0-12.0) sec INR (<1.2) Sodium 134 L (137-145) mmol/L Chloride 94 L (98-107) mmol/L Carbon Dioxide 34 H (22-30) mmol/L BUN 27 H (9-20) mg/dL Glucose 149 H (74-99) mg/dL POC Glucose (mg/dL) 165 H (75-99) mg/dL Calcium 8.2 L (8.4-10.2) mg/dL Iron (65-175) ug/dL Iron Saturation (15.00-50.00) Ferritin (22.0-322.0) ng/mL Crossmatch 11/02/18 Range/Units 11:45 RBC (4.30-5.90) m/uL Hgb (13.0-17.5) gm/dL Hct (39.0-53.0) % MCV (80.0-100.0) fL MCH (25.0-35.0) pg MCHC (31.0-37.0) g/dL RDW (11.5-15.5) % PT (9.0-12.0) sec INR (<1.2) Sodium (137-145) mmol/L Chloride (98-107) mmol/L Carbon Dioxide (22-30) mmol/L BUN (9-20) mg/dL Glucose (74-99) mg/dL POC Glucose (mg/dL) 189 H (75-99) mg/dL Calcium (8.4-10.2) mg/dL Iron (65-175) ug/dL Iron Saturation (15.00-50.00) Ferritin (22.0-322.0) ng/mL Crossmatch Microbiology - Last 24 Hours (Table) 10/31/18 12:07 Urine Culture - Final Urine,Voided Assessment and Plan (1) Iron deficiency anemia Narrative/Plan: 78-year-old male with iron deficiency anemia of unknown etiology. Remote history of colonoscopy. Denies any signs or symptoms of GI bleeding. Was found to have a warfarin induced coagulopathy on presentation with elevated INR which was 1.9 today. Hemoglobin has been stable at 7.3 from 7.1 previously. Current Visit: Yes Status: Acute Code(s): D50.9 - IRON DEFICIENCY ANEMIA, UNSPECIFIED SNOMED Code(s): 93898200 (2) Warfarin-induced coagulopathy Current Visit: No Status: Acute Code(s): D68.32 - HEMORRHAGIC DISORD D/T EXTRINSIC CIRCULATING ANTICOAGULANTS; T45.515A - ADVERSE EFFECT OF ANTICOAGULANTS, INITIAL ENCOUNTER SNOMED Code(s): 40778250 Plan: Supportive care Okay for diet Continue to monitor hemoglobin and hematocrit and transfuse as needed Continue to hold warfarin therapy Patient would benefit from evaluation with EGD and colonoscopy, either during current hospitalization or in the outpatient setting after discharge for further evaluation of iron deficiency anemia, timing will be based on clinical course Thank you for allowing us to participate in the care of the patient, we will continue to follow
--- NOTE | 2018-11-03 10:36 | XR ---
EXAMINATION TYPE: XR chest 1V portable DATE OF EXAM: 11/03/2018 COMPARISON: 10/31/2018 INDICATION: CHF TECHNIQUE: Single frontal view of the chest is obtained. FINDINGS: The heart size is mildly prominent. The pulmonary vasculature is normal. Some minimal subsegmental atelectasis may be along the lateral left diaphragm. Lungs are otherwise cl ear. IMPRESSION: 1. Mild atelectasis lateral left diaphragm 2. Mild cardiomegaly
[2018-11-03 11:38] LABS: Glucose,Whole Blood 219 mg/dL (75-99)
[2018-11-03] MEDS: CYANOCOBALAMIN 500 MCG TAB PO SCH (12:01)
[2018-11-03] MEDS: VITAMIN E (DL,TOCOPHERYL ACET) 400 UNIT CAP PO SCH (12:02)
--- NOTE | 2018-11-03 13:31 | PN ---
PROGRESS NOTE This patient is admitted with low hemoglobin. The patient had abnormal troponin suggestive of type 2 myocardial injury. Denies any chest pain or shortness of breath. The patient's echocardiogram reveals ejection fraction of 35% 40%. The patient is in atrial fibrillation with a controlled rate. He is feeling better. Denies any chest pain or shortness of breath. No active bleeding is noted. Blood pressure is 100/77 mmHg, heart rate is 76 per minute. First and second heart sounds are heard. Lungs are clear to auscultation and percussion. Patient's INR is normal. The patient may be discharged home and have a colonoscopy as an outpatient. After the colonoscopy, the patient can either resume the Coumadin or Eliquis. Suggest to have a stress test done as an outpatient to rule out any underlying significant ischemia. MMODL / IJN: [id number] /
[2018-11-03] MEDS ORDERED: FUROSEMIDE 10 MG/ML 4 ML VIAL IV PRN (13:34)
[2018-11-03] MEDS: SODIUM CHLORIDE 0.9% 1,000 ML IV SCH (14:27)
--- NOTE | 2018-11-03 14:45 | P.PN ---
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 Patient also has got CHF with EF of 30- 35% underlying atrial fibrillation. Patient previously also's had a lumbar L3- L4 psych epidural abscess that was treated. Also known carotid artery disease with prior stent, depression uses a walker to baseline COPD presbyesophagus causing chronic dysphagia. Patient presents with feeling weak and tired. For about 4 days prior to come in and patient been having hematuria coty with stopped at her the day after he came in. He did receive antibiotics per his family doctor for possible UTI. is present with him. Patient is getting easily short winded now with taking a few steps only. Very anxious. Admitted with acute blood loss anemia felt to be combination of possibly GI and hematuria at home. Did receive a unit of blood. Also received extra dose of IV Lasix. Today-i in the ICU. Patient's and daughter Bernadine are present. Patient's breathing is better since admission. getting short winded with activity. Did tolerate his diet. I did give the patient 2.5 mg of vitamin K by mouth yesterday evening. Review of systems: Was done for constitutional, cardiovascular, GI, pulmonary. relevant finding as above Active Medications Albuterol/Ipratropium (Duoneb 0.5 Mg-3 Mg/3 Ml Soln) 3 ml INHALATION RT-TID PRN PRN Reason: Shortness Of Breath Last Admin: 11/03/18 08:15 Dose: 3 ml Documented by: Aspirin (Aspirin) 81 mg PO DAILY [facility] Last Admin: 11/03/18 08:37 Dose: 81 mg Documented by: Atorvastatin Calcium (Lipitor) 80 mg PO DAILY [facility] Last Admin: 11/03/18 08:36 Dose: 80 mg Documented by: Cyanocobalamin (Vitamin B-12) 1,000 mcg PO DAILY@1200 [facility] Last Admin: 11/03/18 12:01 Dose: 1,000 mcg Documented by: Cyclobenzaprine HCl (Flexeril) 10 mg PO TID [facility] Last Admin: 11/03/18 08:37 Dose: 10 mg Documented by: Diclofenac Sodium (Voltaren Gel) 2 gm TOPICAL QID [facility] Last Admin: 11/03/18 14:26 Dose: Not Given Documented by: Fluticasone Propionate (Flonase Nasal [place]) 2 spray EA NOSTRIL DAILY PRN PRN Reason: Allergy Symptoms Furosemide (Lasix) 80 mg PO DAILY [facility] Last Admin: 11/03/18 08:37 Dose: 80 mg Documented by: Furosemide (Lasix) 40 mg IV ONCE PRN PRN Reason: Blood Transfusion Complete Stop: 11/03/18 23:00 Hydroxyzine HCl (Atarax) 25 mg PO TID PRN PRN Reason: Itching Last Admin: 11/02/18 10:24 Dose: 25 mg Documented by: Sodium Chloride (Saline 0.9%) 1,000 mls @ 20 mls/hr IV .Q24H [facility] Last Admin: 11/03/18 14:27 Dose: Not Given Documented by: Ceftriaxone Sodium 1 gm/ (Sodium Chloride) 50 mls @ 100 mls/hr IVPB Q24HR [facility] Last Admin: 11/03/18 08:36 Dose: 100 mls/hr Documented by: Insulin Aspart (Novolog) 5 unit SQ AC-BID [facility] Last Admin: 11/03/18 08:35 Dose: 5 unit Documented by: Insulin Aspart (Novolog) 4 unit SQ 1200 [facility] Last Admin: 11/03/18 12:01 Dose: 4 unit Documented by: Insulin Detemir (Levemir) 50 unit SQ DAILY@0700 [facility] Last Admin: 11/03/18 07:16 Dose: 50 unit Documented by: Magnesium Oxide (Mag-Ox) 400 mg PO DAILY [facility] Last Admin: 11/03/18 08:36 Dose: 400 mg Documented by: Methadone HCl (Dolophine) 5 mg PO Q8H [facility] Last Admin: 11/03/18 10:09 Dose: 5 mg Documented by: Metolazone (Zaroxolyn) 2.5 mg PO DAILY PRN PRN Reason: Edema Metoprolol Tartrate (Lopressor) 50 mg PO BID [facility] Last Admin: 11/03/18 08:37 Dose: 50 mg Documented by: Montelukast Sodium (Singulair) 10 mg PO HS [facility] Last Admin: 11/02/18 20:48 Dose: 10 mg Documented by: Multivitamins/Minerals (Ivite) 1 each PO DAILY [facility] Last Admin: 11/03/18 08:37 Dose: 1 each Documented by: Nitroglycerin (Nitrostat) 0.4 mg SUBLINGUAL Q5M PRN PRN Reason: Chest Pain Liraglutide [Victoza (]) 0.6 mg SQ DAILY [facility] Last Admin: 11/03/18 11:51 Dose: Not Given Documented by: Pantoprazole Sodium (Protonix) 40 mg PO AC-BID [facility] Potassium Chloride (K-Dur 10) 10 meq PO DAILY [facility] Last Admin: 11/03/18 08:36 Dose: 10 meq Documented by: Senna/Docusate Sodium (Senokot-S) 1 each PO BID [facility] Sertraline HCl (Zoloft) 100 mg PO DAILY [facility] Last Admin: 11/03/18 08:36 Dose: 100 mg Documented by: Triamcinolone Acetonide (Kenalog) 1 applic TOPICAL BID PRN PRN Reason: Itching Last Admin: 11/02/18 09:31 Dose: 1 applic Documented by: Vitamin E (Vitamin E) 400 unit PO DAILY@1200 [facility] Last Admin: 11/03/18 12:02 Dose: 400 unit Documented by: Physical examination: VITAL SIGNS: 96.8, 86, 22, 98 x 77, 98% on 2 L GENERAL: Propped up in bed, awake a bit tired EYES: Pupils equal. Conjunctiva palel. HEENT: External appearance of nose and ears normal, oral cavity grossly normal, decreased hearing. NECK: JVD unable to assess, mass not palpable. HEART: First and second heart sounds are normal; no edema. LUNGS: Respiratory rate increased, decreased breath sounds some wheezing and minimal crackles. ABDOMEN: Soft, nontender, liver spleen not palpable, no masses palpable. PSYCH: Alert and oriented x3; mood and affect anxiousl. NEUROLOGICAL: Cranial nerves grossly intact; no facial asymmetry, decreased power of the right side. INVESTIGATIONS, reviewed in the clinical context: White count 8, hemoglobin 7.4, potassium 4.2, crit and 1.11 Previous testing White count 12.7 hemoglobin 7.3 platelets 369 INR 4 potassium 4.6 BUN 30 creatinine 1.2 to Accu-Cheks 200, 232 EKG tracing personally reviewed by me-atrial flutter fibrillation rate controlled Chest x-ray film personally reviewed by me-possibly vascular congestion with sm all pleural effusion Assessment: -Acute blood loss anemia in a patient who complains of coty hematuria for 4 days prior to coming in. Patient does states he had a cystoscopy in [place] some time ago that was unremarkable. Need to rule out a GI cause. Patient still rather symptomatic with shortness of breath and weak and tired and blood pressures running on the lower side. Patient will benefit from another unit of blood. 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 Questions were answered. At this point will give another unit of blood. Give another dose of Lasix 40 mg IV push. Other data to except to continue. Discussed with the nurse to. Prognosis guarded.
[2018-11-03 16:30] LABS: Glucose,Whole Blood 171 mg/dL (75-99)
[2018-11-03] MEDS: PANTOPRAZOLE 40 MG TABLET PO SCH (17:32)
[2018-11-03] MEDS: hydrOXYzine HCL 25 MG TAB PO PRN (17:32)
[2018-11-03 20:24] LABS: Glucose,Whole Blood 181 mg/dL (75-99)
[2018-11-03] MEDS ORDERED: SENNOSIDES-DOCUSATE SODIUM 1 EACH TAB PO SCH (21:00)
[2018-11-03] MEDS: MONTELUKAST 10 MG TAB PO SCH (22:13)
[2018-11-03] MEDS: SENNOSIDES-DOCUSATE SODIUM 1 EACH TAB PO SCH (22:14)
[2018-11-03] MEDS: TRIAMCINOLONE 0.1% CREAM 80 GM TUBE TOPICAL PRN (22:15)
--- NOTE | 2018-11-03 22:40 | P.PN ---
Subjective Progress Note Date: 11/03/18 Principal diagnosis: Iron deficiency anemia Patient is seen lying in bed denying any abdominal pain. Tolerating diet with no signs or symptoms of GI bleed reported. Objective - Vital Signs Vital signs: Vital Signs Temp 96.8 F L 11/03/18 10:00 Pulse 86 11/03/18 10:00 Resp 22 11/03/18 10:00 BP 98/77 11/03/18 10:00 Pulse Ox 98 11/03/18 10:00 Intake & Output 11/02/18 11/03/18 11/03/18 18:59 06:59 18:59 Intake Total 50 410 Output Total 400 450 Balance 50 -400 -40 Weight 119.1 kg Intake: Intake, IV Titration 50 50 Amount cefTRIAXone 1 gm In 50 50 Sodium Chloride 0.9% 50 ml @ 100 mls/hr IVPB Q24HR [facility] Rx#:[id number] Oral 360 Output: Urine 400 450 Other: Voiding Method Urinal Urinal # Voids 2 - Exam On physical examination, patient appears comfortable in no apparent distress. HEAD: Normocephalic, atraumatic. EYES: No scleral icterus. No conjunctival injection. MOUTH: No lesions, tongue midline. NECK: Trachea midline, no gross abnormalities. CHEST: Decreased air entry bilaterally. HEART: S1-S2 appreciated. ABDOMEN: Soft, obese. Bowel sounds are positive. No organomegaly. No guarding or rigidity. EXTREMITIES: No pedal edema. SKIN: No rashes, no jaundice. NEUROLOGIC: Alert and oriented x3. No focal deficits. - Labs CBC & Chem 7: 11/03/18 04:36 11/03/18 04:36 Labs: Abnormal Lab Results - Last 24 Hours (Table) 11/02/18 11/02/18 11/03/18 Range/Units 17:18 17:24 04:36 RBC 3.53 L (4.30-5.90) m/uL Hgb 7.4 L (13.0-17.5) gm/dL Hct 24.9 L (39.0-53.0) % MCV 70.6 L (80.0-100.0) fL MCH 21.1 L (25.0-35.0) pg MCHC 29.8 L (31.0-37.0) g/dL RDW 17.6 H (11.5-15.5) % Sodium (137-145) mmol/L Chloride (98-107) mmol/L Carbon Dioxide (22-30) mmol/L BUN (9-20) mg/dL Glucose (74-99) mg/dL POC Glucose (mg/dL) 165 H 151 H (75-99) mg/dL Calcium (8.4-10.2) mg/dL 11/03/18 11/03/18 11/03/18 Range/Units 04:36 06:44 11:37 RBC (4.30-5.90) m/uL Hgb (13.0-17.5) gm/dL Hct (39.0-53.0) % MCV (80.0-100.0) fL MCH (25.0-35.0) pg MCHC (31.0-37.0) g/dL RDW (11.5-15.5) % Sodium 134 L (137-145) mmol/L Chloride 94 L (98-107) mmol/L Carbon Dioxide 35 H (22-30) mmol/L BUN 30 H (9-20) mg/dL Glucose 120 H (74-99) mg/dL POC Glucose (mg/dL) 126 H 219 H (75-99) mg/dL Calcium 8.1 L (8.4-10.2) mg/dL Assessment and Plan (1) Iron deficiency anemia Narrative/Plan: 78-year-old male with iron deficiency anemia of unknown etiology. Remote history of colonoscopy. Denies any signs or symptoms of GI bleeding. Was found to have a warfarin induced coagulopathy on presentation with elevated INR which was 1.9 today. Hemoglobin has been stable. Current Visit: Yes Status: Acute Code(s): D50.9 - IRON DEFICIENCY ANEMIA, UNSPECIFIED SNOMED Code(s): 93360141 (2) Warfarin-induced coagulopathy Current Visit: No Status: Acute Code(s): D68.32 - HEMORRHAGIC DISORD D/T EXTRINSIC CIRCULATING ANTICOAGULANTS; T45.515A - ADVERSE EFFECT OF ANTICOAGULANTS, INITIAL ENCOUNTER SNOMED Code(s): 55737443 Plan: Supportive care Okay for diet Continue to monitor hemoglobin and hematocrit and transfuse as needed Continue to hold warfarin therapy Patient would benefit from evaluation with EGD and colonoscopy, will plan on endoscopic evaluation on Monday Thank you for allowing us to participate in the care of the patient, we will continue to follow
[2018-11-04 02:11] LABS: Glucose,Whole Blood 180 mg/dL (75-99)
[2018-11-04] MEDS: METHADONE 5 MG TAB PO SCH ×3 (05:20→17:09)
[2018-11-04 05:21] LABS: Anisocytosis Slight; Basophils % (A) 1 %; Eosinophils # (A) 0.5 k/uL (0-0.7); Eosinophils % (A) 7 %; HCT 26.3 % (39.0-53.0); HGB 7.9 gm/dL (13.0-17.5); Hypochromasia Marked; Lymphocytes # (A) 1.3 k/uL (1.0-4.8); Lymphocytes % (A) 18 %; MCH 21.2 pg (25.0-35.0); MCV 70.5 fL (80.0-100.0); Mean Platelet Volume 6.4; Microcytosis Marked; Monocytes # (A) 0.5 k/uL (0-1.0); Monocytes % (A) 7 %; Neutrophils # (A) 4.6 k/uL (1.3-7.7); Neutrophils % (A) 63 %; Platelet Count 311 k/uL (150-450); Poikilocytosis Moderate; RBC 3.73 m/uL (4.30-5.90); RDW 18.7 % (11.5-15.5); WBC 7.3 k/uL (3.8-10.6)
[2018-11-04 05:36] LABS: Calcium 8.1 mg/dL (8.4-10.2); Potassium 4.6 mmol/L (3.5-5.1)
[2018-11-04 05:47] LABS: INR 1.2 (<1.2); Prothrombin Time 12.2 sec (9.0-12.0)
[2018-11-04 06:40] LABS: Glucose,Whole Blood 164 mg/dL (75-99)
[2018-11-04] MEDS: IPRATROPIUM-ALBUTEROL 3 ML NEB INHALATION PRN (07:35)
[2018-11-04] MEDS: INSULIN ASPART (NovoLOG) 100 UNIT/ML VIAL SQ SCH ×3 (08:40→16:55)
[2018-11-04] MEDS: INSULIN DETEMIR (LEVEMIR) 100 UNIT/ML SYR SQ SCH (08:40)
[2018-11-04] MEDS: SERTRALINE 100 MG TAB PO SCH (08:40)
[2018-11-04] MEDS: ATORVASTATIN 80 MG TAB PO SCH (08:41)
[2018-11-04] MEDS: SENNOSIDES-DOCUSATE SODIUM 1 EACH TAB PO SCH (08:41)
[2018-11-04] MEDS: FUROSEMIDE 80 MG TAB PO SCH (08:41)
[2018-11-04] MEDS: MAGNESIUM OXIDE 400 MG TAB PO SCH (08:41)
[2018-11-04] MEDS: PANTOPRAZOLE 40 MG TABLET PO SCH ×2 (08:42→17:09)
[2018-11-04] MEDS: POTASSIUM CHLORIDE ER 10 MEQ TAB.ER.PRT PO SCH (08:42)
[2018-11-04] MEDS: METOPROLOL TARTRATE 50 MG TAB PO SCH ×2 (08:42→22:10)
[2018-11-04] MEDS: CYCLOBENZAPRINE 10 MG TAB PO SCH ×3 (08:42→22:11)
[2018-11-04] MEDS: ASPIRIN 81 MG PO SCH (08:42)
[2018-11-04] MEDS: DICLOFENAC SODIUM GEL 100 GM TUBE TOPICAL SCH ×4 (08:42→22:11)
[2018-11-04] MEDS: VIT A,C & E-LUTEIN-MINERALS 1 EACH TAB PO SCH (08:43)
[2018-11-04 11:47] LABS: Glucose,Whole Blood 74 mg/dL (75-99)
[2018-11-04 12:11] LABS: Glucose,Whole Blood 62 mg/dL (75-99)
[2018-11-04 12:33] LABS: Glucose,Whole Blood 91 mg/dL (75-99)
--- NOTE | 2018-11-04 14:54 | PN ---
PROGRESS NOTE This patient is admitted with a low hemoglobin. Patient had a possible type 2 myocardial injury. Denies any chest pain or shortness of breath. The patient remains hemodynamically stable. Blood pressure is 114/73 mmHg. Heart S1 and S2 normal. Lungs are clinically clear to auscultation and percussion. Patient is supposed to undergo colonoscopy tomorrow. MMODL / IJN: [id number] /
[2018-11-04] MEDS: SODIUM CHLORIDE 0.9% 1,000 ML IV SCH (15:06)
[2018-11-04] MEDS: CYANOCOBALAMIN 500 MCG TAB PO SCH (15:07)
[2018-11-04] MEDS: VITAMIN E (DL,TOCOPHERYL ACET) 400 UNIT CAP PO SCH (15:08)
[2018-11-04 15:11] LABS: Glucose,Whole Blood 89 mg/dL (75-99)
[2018-11-04] MEDS ORDERED: FUROSEMIDE 10 MG/ML 4 ML VIAL IV SCH (16:15)
--- NOTE | 2018-11-04 16:17 | P.PN ---
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 Patient also has got CHF with EF of 30- 35% underlying atrial fibrillation. Patient previously also's had a lumbar L3- L4 psych epidural abscess that was treated. Also known carotid artery disease with prior stent, depression uses a walker to baseline COPD presbyesophagus causing chronic dysphagia. Patient presents with feeling weak and tired. For about 4 days prior to come in and patient been having hematuria coty with stopped at her the day after he came in. He did receive antibiotics per his family doctor for possible UTI. is present with him. Patient is getting easily short winded now with taking a few steps only. Very anxious. Admitted with acute blood loss anemia felt to be combination of possibly GI and hematuria at home. Did receive a unit of blood. Also received extra dose of IV Lasix. Today-patient did receive a unit of blood yesterday. Also dose of extra IV Lasix. Feels a bit stronger. Some short of breath. Some wheezing. Seen by GI. For endoscopy tomorrow. at the bedside. Review of systems: Was done for constitutional, cardiovascular, GI, pulmonary. relevant finding as above Active Medications Albuterol/Ipratropium (Duoneb 0.5 Mg-3 Mg/3 Ml Soln) 3 ml INHALATION RT-TID PRN PRN Reason: Shortness Of Breath Last Admin: 11/04/18 07:35 Dose: 3 ml Documented by: Aspirin (Aspirin) 81 mg PO DAILY [facility] Last Admin: 11/04/18 08:42 Dose: 81 mg Documented by: Atorvastatin Calcium (Lipitor) 80 mg PO DAILY [facility] Last Admin: 11/04/18 08:41 Dose: 80 mg Documented by: Cyanocobalamin (Vitamin B-12) 1,000 mcg PO DAILY@1200 [facility] Last Admin: 11/04/18 15:07 Dose: 1,000 mcg Documented by: Cyclobenzaprine HCl (Flexeril) 10 mg PO TID [facility] Last Admin: 11/04/18 15:24 Dose: 10 mg Documented by: Diclofenac Sodium (Voltaren Gel) 2 gm TOPICAL QID [facility] Last Admin: 11/04/18 14:02 Dose: Not Given Documented by: Fluticasone Propionate (Flonase Nasal [place]) 2 spray EA NOSTRIL DAILY PRN PRN Reason: Allergy Symptoms Furosemide (Lasix) 80 mg PO DAILY [facility] Last Admin: 11/04/18 08:41 Dose: 80 mg Documented by: Furosemide (Lasix) 40 mg IV DAILY [facility] Hydroxyzine HCl (Atarax) 25 mg PO TID PRN PRN Reason: Itching Last Admin: 11/03/18 17:32 Dose: 25 mg Documented by: Sodium Chloride (Saline 0.9%) 1,000 mls @ 20 mls/hr IV .Q24H [facility] Last Admin: 11/04/18 15:06 Dose: Not Given Documented by: Ceftriaxone Sodium 1 gm/ (Sodium Chloride) 50 mls @ 100 mls/hr IVPB Q24HR [facility] Last Admin: 11/04/18 08:39 Dose: 100 mls/hr Documented by: Insulin Aspart (Novolog) 5 unit SQ AC-BID [facility] Last Admin: 11/04/18 08:40 Dose: 5 unit Documented by: Insulin Aspart (Novolog) 4 unit SQ 1200 [facility] Last Admin: 11/04/18 13:55 Dose: Not Given Documented by: Insulin Detemir (Levemir) 36 unit SQ DAILY@0700 [facility] Magnesium Oxide (Mag-Ox) 400 mg PO DAILY [facility] Last Admin: 11/04/18 08:41 Dose: 400 mg Documented by: Methadone HCl (Dolophine) 5 mg PO Q8H [facility] Last Admin: 11/04/18 08:41 Dose: 5 mg Documented by: Metolazone (Zaroxolyn) 2.5 mg PO DAILY PRN PRN Reason: Edema Metoprolol Tartrate (Lopressor) 50 mg PO BID [facility] Last Admin: 11/04/18 08:42 Dose: 50 mg Documented by: Montelukast Sodium (Singulair) 10 mg PO HS [facility] Last Admin: 11/03/18 22:13 Dose: 10 mg Documented by: Multivitamins/Minerals (Ivite) 1 each PO DAILY [facility] Last Admin: 11/04/18 08:43 Dose: 1 each Documented by: Nitroglycerin (Nitrostat) 0.4 mg SUBLINGUAL Q5M PRN PRN Reason: Chest Pain Liraglutide [Victoza (]) 0.6 mg SQ DAILY [facility] Last Admin: 11/04/18 08:42 Dose: Not Given Documented by: Pantoprazole Sodium (Protonix) 40 mg PO AC-BID [facility] Last Admin: 11/04/18 08:42 Dose: 40 mg Documented by: Polyethylene Glycol/Electrolytes (Golytely Lavage) 4,000 ml PO ONCE ONE Stop: 11/04/18 17:01 Potassium Chloride (K-Dur 10) 10 meq PO DAILY [facility] Last Admin: 11/04/18 08:42 Dose: 10 meq Documented by: Senna/Docusate Sodium (Senokot-S) 2 each PO BID [facility] Last Admin: 11/04/18 08:41 Dose: 2 each Documented by: Sertraline HCl (Zoloft) 100 mg PO DAILY [facility] Last Admin: 11/04/18 08:40 Dose: 100 mg Documented by: Triamcinolone Acetonide (Kenalog) 1 applic TOPICAL BID PRN PRN Reason: Itching Last Admin: 11/03/18 22:15 Dose: 1 applic Documented by: Vitamin E (Vitamin E) 400 unit PO DAILY@1200 [facility] Last Admin: 11/04/18 15:08 Dose: 400 unit Documented by: Physical examination: VITAL SIGNS: 98, 62, 22, 105/79, 98% on 2 L GENERAL: Laying in bed EYES: Pupils equal. Conjunctiva palel. HEENT: External appearance of nose and ears normal, oral cavity grossly normal, decreased hearing. NECK: JVD unable to assess, mass not palpable. HEART: First and second heart sounds are normal; no edema. LUNGS: Respiratory rate increased, decreased breath sounds some wheezing. ABDOMEN: Soft, nontender, liver spleen not palpable, no masses palpable. PSYCH: Alert and oriented x3; mood and affect anxiousl. NEUROLOGICAL: Cranial nerves grossly intact; no facial asymmetry, decreased power of the right side. INVESTIGATIONS, reviewed in the clinical context: White count 7.3 hemoglobin 7.9 potassium 4.6 creatinine 1.19 INR 1.2 Previous testing White count 12.7 hemoglobin 7.3 platelets 369 INR 4 potassium 4.6 BUN 30 creatinine 1.2 to Accu-Cheks 200, 232 EKG tracing personally reviewed by me-atrial flutter fibrillation rate controlled Chest x-ray film personally reviewed by me-possibly vascular congestion with small pleural effusion Assessment: -Acute blood loss anemia in a patient who complains of coty hematuria for 4 days prior to coming in. Patient does states he had a cystoscopy in [place] some time ago that was unremarkable. Need to rule out a GI cause. 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 Awaiting endoscopy tomorrow. Care was discussed with the patient and at the bedside.
[2018-11-04 16:55] LABS: Glucose,Whole Blood 78 mg/dL (75-99)
[2018-11-04] MEDS ORDERED: PEG 3350-NA SULF,BICARB,CL/KCL 4,000 ML BOTTLE PO ONE (17:00)
[2018-11-04 21:15] LABS: Glucose,Whole Blood 185 mg/dL (75-99)
[2018-11-04] MEDS: MONTELUKAST 10 MG TAB PO SCH (22:11)
[2018-11-05] MEDS: SENNOSIDES-DOCUSATE SODIUM 1 EACH TAB PO SCH ×3 (00:43→21:09)
[2018-11-05] MEDS: METHADONE 5 MG TAB PO SCH ×3 (01:41→20:03)
[2018-11-05] MEDS ORDERED: DEXTROSE 50% SYRINGE 50 ML IVP STA (03:14)
[2018-11-05 03:31] LABS: Glucose,Whole Blood 60 mg/dL (75-99)
[2018-11-05 03:41] LABS: Glucose,Whole Blood 159 mg/dL (75-99)
[2018-11-05 04:44] LABS: Calcium 7.9 mg/dL (8.4-10.2); Potassium 3.3 mmol/L (3.5-5.1)
[2018-11-05 04:56] LABS: Anisocytosis Slight; Basophils # (A) 0.1 k/uL (0-0.2); Basophils % (A) 1 %; Eosinophils # (A) 0.5 k/uL (0-0.7); Eosinophils % (A) 7 %; HCT 25.9 % (39.0-53.0); HGB 7.6 gm/dL (13.0-17.5); Hypochromasia Marked; Lymphocytes # (A) 0.8 k/uL (1.0-4.8); Lymphocytes % (A) 12 %; MCH 21.2 pg (25.0-35.0); MCHC 29.2 g/dL (31.0-37.0); MCV 72.6 fL (80.0-100.0); Mean Platelet Volume 6.8; Microcytosis Moderate; Monocytes # (A) 0.6 k/uL (0-1.0); Monocytes % (A) 9 %; Neutrophils # (A) 4.5 k/uL (1.3-7.7); Neutrophils % (A) 69 %; Platelet Count 306 k/uL (150-450); Poikilocytosis Moderate; RBC 3.57 m/uL (4.30-5.90); RDW 18.2 % (11.5-15.5); WBC 6.5 k/uL (3.8-10.6)
[2018-11-05] MEDS ORDERED: Potassium Replacement Protocol 1 EACH MISC MISCELLANE PRN (05:06)
[2018-11-05] MEDS: POTASSIUM CHLORIDE 10 MEQ in WATER FOR INJECTION 1 100ML.BAG IVPB SCH ×4 (05:41→12:22)
[2018-11-05] MEDS ORDERED: INSULIN DETEMIR (LEVEMIR) 100 UNIT/ML SYR SQ SCH (07:00)
[2018-11-05] MEDS ORDERED: PEG 3350-NA SULF,BICARB,CL/KCL 4,000 ML BOTTLE PO ONE (07:02)
[2018-11-05 07:13] LABS: Glucose,Whole Blood 82 mg/dL (75-99)
[2018-11-05] MEDS: INSULIN ASPART (NovoLOG) 100 UNIT/ML VIAL SQ SCH ×3 (07:20→19:59)
[2018-11-05] MEDS: IPRATROPIUM-ALBUTEROL 3 ML NEB INHALATION PRN ×2 (07:47→19:15)
[2018-11-05] MEDS: PANTOPRAZOLE 40 MG TABLET PO SCH ×2 (08:38→20:03)
[2018-11-05] MEDS: ASPIRIN 81 MG PO SCH (08:38)
[2018-11-05] MEDS: ATORVASTATIN 80 MG TAB PO SCH (08:38)
[2018-11-05] MEDS: FUROSEMIDE 80 MG TAB PO SCH (08:39)
[2018-11-05] MEDS: MAGNESIUM OXIDE 400 MG TAB PO SCH (08:39)
[2018-11-05] MEDS: CYCLOBENZAPRINE 10 MG TAB PO SCH ×3 (08:39→21:09)
[2018-11-05] MEDS: DICLOFENAC SODIUM GEL 100 GM TUBE TOPICAL SCH ×4 (08:45→21:09)
[2018-11-05] MEDS: POTASSIUM CHLORIDE ER 10 MEQ TAB.ER.PRT PO SCH (08:45)
[2018-11-05] MEDS: METOPROLOL TARTRATE 50 MG TAB PO SCH ×2 (08:45→21:09)
[2018-11-05] MEDS: VIT A,C & E-LUTEIN-MINERALS 1 EACH TAB PO SCH (08:46)
[2018-11-05] MEDS: SERTRALINE 100 MG TAB PO SCH (08:46)
[2018-11-05 12:04] LABS: Glucose,Whole Blood 71 mg/dL (75-99)
[2018-11-05 13:04] LABS: Glucose,Whole Blood 54 mg/dL (75-99)
[2018-11-05] MEDS ORDERED: DEXTROSE 10 % IN WATER 250 ML IV ONE (13:12)
[2018-11-05] MEDS ORDERED: DEXTROSE 5% IN WATER 1,000 ML IV ONE (13:24)
[2018-11-05 13:29] LABS: Glucose,Whole Blood 103 mg/dL (75-99)
[2018-11-05] MEDS ORDERED: PROPOFOL 10 MG/ML 20 ML VIAL IV ONE (16:01)
[2018-11-05] MEDS ORDERED: IV FLUID CONTINUATION 800 ML IV ONE (16:50)
--- NOTE | 2018-11-05 16:57 | P.PCN ---
Date of Procedure: 11/05/18 Description of Procedure: Brief history: 78-year-old male with iron deficiency anemia of unknown etiology. Remote history of colonoscopy. Denies any signs or symptoms of GI bleeding. Was found to have a warfarin induced coagulopathy on presentation with elevated INR which was 1.2 today. Hemoglobin has been stable. Procedure performed: Esophagogastroduodenoscopy with biopsy Colonoscopy with polypectomy Estimated blood loss: Minimal. Preoperative diagnosis: Iron deficiency anemia Anesthesia: MAC Procedure: After informed consent was obtained from the patient was brought into the endoscopy unit and IV sedation was administered by anesthesia under continuous monitoring. Initially upper endoscopy was done. The Olympus GF 190 video endoscope was inserted inserted into the mouth and esophagus intubated without any difficulty and was gradually advanced into the stomach and duodenum and carefully examined. The bulb and second part of the duodenum appeared normal, with biopsies taken. The scope was then withdrawn into the stomach adequately insufflated with air and upon careful examination the antrum and body, cardia and fundus appeared normal except for some mild scattered erythema in the antrum and body suggestive of mild gastritis with biopsies taken. The scope was then withdrawn into the esophagus. The GE junction was located at 40 cm to the incisors. It appeared regular with no erythema erosions or ulcerations. Rest of the esophagus appeared normal. Patient tolerated the procedure well. At this time the patient continued to remain sedation. Initial digital rectal examination was normal. Olympus CF 190 video colonoscope was then inserted into the rectum and gradually advanced to the cecum without any difficulty. Careful examination was performed as the scope was gradually being withdrawn. The prep was excellent. The cecum, ascending colon, transverse colon, descending colon, sigmoid colon and rectum appeared normal. Diminutive 2 mm sessile polyps of the hepatic flexure, ascending colon and rectum removed with cold forcep polypec scott. Mild left-sided diverticulosis. Retroflexion was performed in the rectum and no lesions were noted, mild internal hemorrhoids. Patient tolerated the procedure well. Impression: 1. Mild gastritis antrum body, biopsied. Duodenal biopsies. 2. Diminutive polyps removed from the hepatic flexure, descending colon rectum with cold forceps. Mild left-sided diverticulosis. Recommendations: Findings of this examination were discussed with the patient as well as his . Okay to resume diet. Okay to resume medications and anticoagulation. Await pathology from polypectomies. Patient has further anemia in the future recommend video capsule endoscopy for further investigation. At this time the gastroenterology service will stand by, please call us back with any questions or concerns.
[2018-11-05 17:15] LABS: Glucose,Whole Blood 70 mg/dL (75-99)
--- NOTE | 2018-11-05 17:24 | P.PN ---
Progress Note - Text Progress Note Date: 11/05/18 Chief Complaint: Short of breath tired Interval history: This is a 78-year-old patient was chronic stable medical conditions include diabetes, hyperlipidemia, hypertension, fibromyalgia, right-sided weakness from prior stroke and peripheral neuropathy. Patient also has got CHF with EF of 30- 35% underlying atrial fibrillation. Patient previously also's had a lumbar L3- L4 psych epidural abscess that was treated. Also known carotid artery disease with prior stent, depression uses a walker to baseline COPD presbyesophagus causing chronic dysphagia. Patient presents with feeling weak and tired. For about 4 days prior to come in and patient been having hematuria coty with stopped at her the day after he came in. He did receive antibiotics per his family doctor for possible UTI. is present with him. Patient is getting easily short winded now with taking a few steps only. Very anxious. Admitted with acute blood loss anemia felt to be combination of possibly GI and hematuria at home. Did receive a unit of blood. Also received extra dose of IV Lasix. Today-sitting on the bed. A bit anxious for his procedure. Breathing stable. at the bedside. Awaiting endoscopy Review of systems: Was done for constitutional, cardiovascular, GI, pulmonary. relevant finding as above Active Medications Albuterol/Ipratropium (Duoneb 0.5 Mg-3 Mg/3 Ml Soln) 3 ml INHALATION RT-TID PRN PRN Reason: Shortness Of Breath Last Admin: 11/05/18 07:47 Dose: 3 ml Documented by: Aspirin (Aspirin) 81 mg PO DAILY [facility] Last Admin: 11/05/18 08:38 Dose: 81 mg Documented by: Atorvastatin Calcium (Lipitor) 80 mg PO DAILY [facility] Last Admin: 11/05/18 08:38 Dose: 80 mg Documented by: Cyanocobalamin (Vitamin B-12) 1,000 mcg PO DAILY@1200 [facility] Last Admin: 11/04/18 15:07 Dose: 1,000 mcg Documented by: Cyclobenzaprine HCl (Flexeril) 10 mg PO TID [facility] Last Admin: 11/05/18 08:39 Dose: 10 mg Documented by: Diclofenac Sodium (Voltaren Gel) 2 gm TOPICAL QID [facility] Last Admin: 11/05/18 13:36 Dose: Not Given Documented by: Fluticasone Propionate (Flonase Nasal [place]) 2 spray EA NOSTRIL DAILY PRN PRN Reason: Allergy Symptoms Furosemide (Lasix) 80 mg PO DAILY [facility] Last Admin: 11/05/18 08:39 Dose: 80 mg Documented by: Hydroxyzine HCl (Atarax) 25 mg PO TID PRN PRN Reason: Itching Last Admin: 11/03/18 17:32 Dose: 25 mg Documented by: Sodium Chloride (Saline 0.9%) 1,000 mls @ 20 mls/hr IV .Q24H [facility] Last Admin: 11/04/18 15:06 Dose: Not Given Documented by: Ceftriaxone Sodium 1 gm/ (Sodium Chloride) 50 mls @ 100 mls/hr IVPB Q24HR [facility] Last Admin: 11/05/18 08:38 Dose: 100 mls/hr Documented by: Dextrose/Water (Dextrose 5%-Water Iv Soln) 1,000 mls @ 75 mls/hr IV .[id number] ONE Stop: 11/06/18 02:43 Last Admin: 11/05/18 13:33 Dose: 75 mls/hr Documented by: Insulin Aspart (Novolog) 5 unit SQ AC-BID [facility] Last Admin: 11/05/18 07:20 Dose: Not Given Documented by: Insulin Aspart (Novolog) 4 unit SQ 1200 [facility] Last Admin: 11/05/18 12:13 Dose: Not Given Documented by: Insulin Detemir (Levemir) 36 unit SQ DAILY@0700 [facility] Last Admin: 11/05/18 07:08 Dose: 36 unit Documented by: Magnesium Oxide (Mag-Ox) 400 mg PO DAILY [facility] Last Admin: 11/05/18 08:39 Dose: 400 mg Documented by: Methadone HCl (Dolophine) 5 mg PO Q8H [facility] Last Admin: 11/05/18 09:13 Dose: 5 mg Documented by: Metolazone (Zaroxolyn) 2.5 mg PO DAILY PRN PRN Reason: Edema Metoprolol Tartrate (Lopressor) 50 mg PO BID [facility] Last Admin: 11/05/18 08:45 Dose: 50 mg Documented by: Miscellaneous Information (Potassium Per Protocol) 1 each MISCELLANE DAILY PRN; Protocol PRN Reason: Per Protocol Montelukast Sodium (Singulair) 10 mg PO HS [facility] Last Admin: 11/04/18 22:11 Dose: 10 mg Documented by: Multivitamins/Minerals (Ivite) 1 each PO DAILY [facility] Last Admin: 11/05/18 08:46 Dose: 1 each Documented by: Nitroglycerin (Nitrostat) 0.4 mg SUBLINGUAL Q5M PRN PRN Reason: Chest Pain Liraglutide [Victoza (]) 0.6 mg SQ DAILY [facility] Last Admin: 11/05/18 08:39 Dose: Not Given Documented by: Pantoprazole Sodium (Protonix) 40 mg PO AC-BID [facility] Last Admin: 11/05/18 08:38 Dose: 40 mg Documented by: Potassium Chloride (K-Dur 10) 10 meq PO DAILY [facility] Last Admin: 11/05/18 08:45 Dose: 10 meq Documented by: Senna/Docusate Sodium (Senokot-S) 2 each PO BID [facility] Last Admin: 11/05/18 08:46 Dose: Not Given Documented by: Sertraline HCl (Zoloft) 100 mg PO DAILY [facility] Last Admin: 11/05/18 08:46 Dose: 100 mg Documented by: Triamcinolone Acetonide (Kenalog) 1 applic TOPICAL BID PRN PRN Reason: Itching Last Admin: 11/03/18 22:15 Dose: 1 applic Documented by: Vitamin E (Vitamin E) 400 unit PO DAILY@1200 [facility] Last Admin: 11/04/18 15:08 Dose: 400 unit Documented by: Physical examination: VITAL SIGNS: 98.1, 71, 15, 111/85, 98% 2 L GENERAL: Propped up in bed, but anxious EYES: Pupils equal. Conjunctiva pale. HEENT: External appearance of nose and ears normal, oral cavity grossly normal, decreased hearing. NECK: JVD unable to assess, mass not palpable. HEART: First and second heart sounds are normal; no edema. LUNGS: Respiratory rate increased, decreased breath sounds some wheezing. ABDOMEN: Soft, nontender, liver spleen not palpable, no masses palpable. PSYCH: Alert and oriented x3; mood and affect anxiousl. NEUROLOGICAL: Cranial nerves grossly intact; no facial asymmetry, decreased power of the right side. INVESTIGATIONS, reviewed in the clinical context: Accu-Cheks 71, 54, 103 Previous testing White count 12.7 hemoglobin 7.3 platelets 369 INR 4 potassium 4.6 BUN 30 creatinine 1.2 to Accu-Cheks 200, 232 EKG tracing personally reviewed by me-atrial flutter fibrillation rate controlled Chest x-ray film personally reviewed by me-possibly vascular congestion with small pleural effusion Assessment: -Acute blood loss anemia in a patient who complains of coty hematuria for 4 days prior to coming in. Patient does states he had a cystoscopy in [place] some time ago that was unremarkable. Need to rule out a GI cause. 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 Also put the patient on D5 0.45 at 75 mL an hour. Patient was given a reduced dose of Lantus this morning 36 units. Late in the evening patient had undergone EGD that showed mild gastritis and some polyps were removed. Left-sided diverticulosis.
[2018-11-05 17:31] LABS: Glucose,Whole Blood 108 mg/dL (75-99)
[2018-11-05] MEDS: SODIUM CHLORIDE 0.9% 1,000 ML IV SCH (19:58)
[2018-11-05] MEDS: CYANOCOBALAMIN 500 MCG TAB PO SCH (19:58)
[2018-11-05] MEDS: VITAMIN E (DL,TOCOPHERYL ACET) 400 UNIT CAP PO SCH (19:58)
[2018-11-05 20:22] LABS: Glucose,Whole Blood 255 mg/dL (75-99)
--- NOTE | 2018-11-05 20:55 | PN ---
PROGRESS NOTE This patient is admitted with type 2 myocardial injury. Remains stable. Denies any chest pain or shortness of breath. Patient's hemoglobin was 7.5. The patient is doing well and remained comfortable. Blood pressure is 111/85 mmHg. Heart rate is 70 per minute. First and second heart sounds are normal. Lungs are clinically clear to auscultation and percussion. We will continue the current medications. Patient is going for colonoscopy today. MMODL / IJN: [id number] /
[2018-11-05] MEDS: MONTELUKAST 10 MG TAB PO SCH (21:09)
[2018-11-05 23:48] LABS: Glucose,Whole Blood 252 mg/dL (75-99)
[2018-11-06] MEDS: METHADONE 5 MG TAB PO SCH ×3 (03:11→18:46)
[2018-11-06 04:16] LABS: Anisocytosis Slight; HCT 25.2 % (39.0-53.0); HGB 7.7 gm/dL (13.0-17.5); Hypochromasia Marked; MCH 21.6 pg (25.0-35.0); MCHC 30.6 g/dL (31.0-37.0); MCV 70.5 fL (80.0-100.0); Mean Platelet Volume 7.7; Microcytosis Marked; Platelet Count 268 k/uL (150-450); Poikilocytosis Slight; RBC 3.57 m/uL (4.30-5.90); RDW 18.8 % (11.5-15.5); WBC 6.3 k/uL (3.8-10.6)
[2018-11-06 04:34] LABS: Calcium 8.1 mg/dL (8.4-10.2)
[2018-11-06 06:44] LABS: Glucose,Whole Blood 237 mg/dL (75-99)
[2018-11-06] MEDS: PANTOPRAZOLE 40 MG TABLET PO SCH ×2 (06:55→17:03)
[2018-11-06] MEDS: INSULIN ASPART (NovoLOG) 100 UNIT/ML VIAL SQ SCH ×3 (06:55→17:03)
[2018-11-06] MEDS: INSULIN DETEMIR (LEVEMIR) 100 UNIT/ML SYR SQ SCH (06:55)
[2018-11-06] MEDS: IPRATROPIUM-ALBUTEROL 3 ML NEB INHALATION PRN (07:28)
[2018-11-06] MEDS: CYCLOBENZAPRINE 10 MG TAB PO SCH ×3 (09:19→21:14)
[2018-11-06] MEDS: ASPIRIN 81 MG PO SCH (09:19)
[2018-11-06] MEDS: MAGNESIUM OXIDE 400 MG TAB PO SCH (09:19)
[2018-11-06] MEDS: METOPROLOL TARTRATE 50 MG TAB PO SCH ×2 (09:19→20:20)
[2018-11-06] MEDS: POTASSIUM CHLORIDE ER 10 MEQ TAB.ER.PRT PO SCH (09:19)
[2018-11-06] MEDS: ATORVASTATIN 80 MG TAB PO SCH (09:19)
[2018-11-06] MEDS: FUROSEMIDE 80 MG TAB PO SCH (09:21)
[2018-11-06] MEDS: SERTRALINE 100 MG TAB PO SCH (09:21)
[2018-11-06] MEDS: VIT A,C & E-LUTEIN-MINERALS 1 EACH TAB PO SCH (09:21)
[2018-11-06] MEDS: DICLOFENAC SODIUM GEL 100 GM TUBE TOPICAL SCH ×4 (09:22→21:19)
[2018-11-06] MEDS: SENNOSIDES-DOCUSATE SODIUM 1 EACH TAB PO SCH ×2 (12:01→21:19)
[2018-11-06 12:16] LABS: Glucose,Whole Blood 187 mg/dL (75-99)
[2018-11-06] MEDS: CYANOCOBALAMIN 500 MCG TAB PO SCH (12:33)
[2018-11-06] MEDS: VITAMIN E (DL,TOCOPHERYL ACET) 400 UNIT CAP PO SCH (12:35)
[2018-11-06] MEDS: SODIUM CHLORIDE 0.9% 1,000 ML IV SCH (15:25)
[2018-11-06 16:50] LABS: Glucose,Whole Blood 157 mg/dL (75-99)
--- NOTE | 2018-11-06 16:50 | P.PN ---
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 Patient also has got CHF with EF of 30- 35% underlying atrial fibrillation. Patient previously also's had a lumbar L3- L4 psych epidural abscess that was treated. Also known carotid artery disease with prior stent, depression uses a walker to baseline COPD presbyesophagus causing chronic dysphagia. Patient presents with feeling weak and tired. For about 4 days prior to come in and patient been having hematuria coty with stopped at her the day after he came in. He did receive antibiotics per his family doctor for possible UTI. is present with him. Patient is getting easily short winded now with taking a few steps only. Very anxious. Admitted with acute blood loss anemia felt to be combination of possibly GI and hematuria at home. Did receive a unit of blood. Also received extra dose of IV Lasix. Today-feeling better. Sitting up. Did tolerate her diet. is present. Eating better. Review of systems: Was done for constitutional, cardiovascular, GI, pulmonary. relevant finding as above Active Medications Albuterol/Ipratropium (Duoneb 0.5 Mg-3 Mg/3 Ml Soln) 3 ml INHALATION RT-TID PRN PRN Reason: Shortness Of Breath Last Admin: 11/06/18 07:28 Dose: 3 ml Documented by: Apixaban (Eliquis) 5 mg PO BID [facility] Atorvastatin Calcium (Lipitor) 80 mg PO DAILY [facility] Last Admin: 11/06/18 09:19 Dose: 80 mg Documented by: Cyanocobalamin (Vitamin B-12) 1,000 mcg PO DAILY@1200 [facility] Last Admin: 11/06/18 12:33 Dose: 1,000 mcg Documented by: Cyclobenzaprine HCl (Flexeril) 10 mg PO TID [facility] Last Admin: 11/06/18 16:21 Dose: 10 mg Documented by: Diclofenac Sodium (Voltaren Gel) 2 gm TOPICAL QID [facility] Last Admin: 11/06/18 16:21 Dose: 2 gm Documented by: Fluticasone Propionate (Flonase Nasal [place]) 2 spray EA NOSTRIL DAILY PRN PRN Reason: Allergy Symptoms Furosemide (Lasix) 80 mg PO DAILY [facility] Last Admin: 11/06/18 09:21 Dose: 80 mg Documented by: Hydroxyzine HCl (Atarax) 25 mg PO TID PRN PRN Reason: Itching Last Admin: 11/03/18 17:32 Dose: 25 mg Documented by: Sodium Chloride (Saline 0.9%) 1,000 mls @ 20 mls/hr IV .Q24H [facility] Last Admin: 11/06/18 15:25 Dose: Not Given Documented by: Ceftriaxone Sodium 1 gm/ (Sodium Chloride) 50 mls @ 100 mls/hr IVPB Q24HR [facility] Last Admin: 11/06/18 12:00 Dose: 100 mls/hr Documented by: Insulin Aspart (Novolog) 5 unit SQ AC-BID [facility] Last Admin: 11/06/18 06:55 Dose: 5 unit Documented by: Insulin Aspart (Novolog) 4 unit SQ 1200 [facility] Last Admin: 11/06/18 12:33 Dose: 4 unit Documented by: Insulin Detemir (Levemir) 26 unit SQ DAILY@0700 [facility] Last Admin: 11/06/18 06:55 Dose: 26 unit Documented by: Magnesium Oxide (Mag-Ox) 400 mg PO DAILY [facility] Last Admin: 11/06/18 09:19 Dose: 400 mg Documented by: Methadone HCl (Dolophine) 5 mg PO Q8H [facility] Last Admin: 11/06/18 09:21 Dose: 5 mg Documented by: Metolazone (Zaroxolyn) 2.5 mg PO DAILY PRN PRN Reason: Edema Metoprolol Tartrate (Lopressor) 50 mg PO BID [facility] Last Admin: 11/06/18 09:19 Dose: 50 mg Documented by: Miscellaneous Information (Potassium Per Protocol) 1 each MISCELLANE DAILY PRN; Protocol PRN Reason: Per Protocol Montelukast Sodium (Singulair) 10 mg PO HS [facility] Last Admin: 11/05/18 21:09 Dose: 10 mg Documented by: Multivitamins/Minerals (Ivite) 1 each PO DAILY [facility] Last Admin: 11/06/18 09:21 Dose: 1 each Documented by: Nitroglycerin (Nitrostat) 0.4 mg SUBLINGUAL Q5M PRN PRN Reason: Chest Pain Liraglutide [Victoza (]) 0.6 mg SQ DAILY [facility] Last Admin: 11/06/18 09:27 Dose: 0.6 mg Documented by: Pantoprazole Sodium (Protonix) 40 mg PO AC-BID [facility] Last Admin: 11/06/18 06:55 Dose: 40 mg Documented by: Potassium Chloride (K-Dur 10) 10 meq PO DAILY [facility] Last Admin: 11/06/18 09:19 Dose: 10 meq Documented by: Senna/Docusate Sodium (Senokot-S) 2 each PO BID [facility] Last Admin: 11/06/18 12:01 Dose: Not Given Documented by: Sertraline HCl (Zoloft) 100 mg PO DAILY [facility] Last Admin: 11/06/18 09:21 Dose: 100 mg Documented by: Triamcinolone Acetonide (Kenalog) 1 applic TOPICAL BID PRN PRN Reason: Itching Last Admin: 11/03/18 22:15 Dose: 1 applic Documented by: Vitamin E (Vitamin E) 400 unit PO DAILY@1200 [facility] Last Admin: 11/06/18 12:35 Dose: 400 unit Documented by: Physical examination: VITAL SIGNS: 85, 18, 108/49, 95% room air GENERAL: Sitting up, minimally anxious EYES: Pupils equal. Conjunctiva pale. HEENT: External appearance of nose and ears normal, oral cavity grossly normal, decreased hearing. NECK: JVD unable to assess, mass not palpable. HEART: First and second heart sounds are normal; no edema. LUNGS: Respiratory rate increased, decreased breath sounds, occasional wheezing. ABDOMEN: Soft, nontender, liver spleen not palpable, no masses palpable. PSYCH: Alert and oriented x3; mood and affect anxious. NEUROLOGICAL: Cranial nerves grossly; no facial asymmetry, decreased power of the right side. INVESTIGATIONS, reviewed in the clinical context: Accu-Cheks 237, 187 Hemoglobin 7.7 Previous testing White count 12.7 hemoglobin 7.3 platelets 369 INR 4 potassium 4.6 BUN 30 creatinine 1.2 to Accu-Cheks 200, 232 EKG tracing personally reviewed by me-atrial flutter fibrillation rate controlled Chest x-ray film personally reviewed by me-possibly vascular congestion with small pleural effusion EGD showing mild gastritis. Colonoscopy resulted in some polyps being removed Assessment: -Acute blood loss anemia in a patient who complains of coty hematuria for 4 days prior to coming in. Patient does states he had a cystoscopy in [place] some time ago that was unremarkable. Need to rule out a GI cause. 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 Sugars looking more decent. Was going to get the patient home today. He'll decide requesting removed in the hospital to feel more to do. They do not want any rehab nor do they want any home health per the ed case manager.. Will put the patient on scheduled broncho dilators.
[2018-11-06] MEDS: FUROSEMIDE 10 MG/ML 10 ML VIAL IV SCH (18:43)
[2018-11-06] MEDS: IPRATROPIUM-ALBUTEROL 3 ML NEB INHALATION SCH ×2 (19:36)
[2018-11-06] MEDS: APIXABAN 5 MG TAB PO SCH (20:20)
[2018-11-06] MEDS: MONTELUKAST 10 MG TAB PO SCH (20:20)
[2018-11-06] MEDS: hydrOXYzine HCL 25 MG TAB PO PRN (20:21)
[2018-11-06 20:34] LABS: Glucose,Whole Blood 169 mg/dL (75-99)
--- NOTE | 2018-11-06 20:51 | XR ---
EXAMINATION: XR chest 2V DATE AND TIME: 11/06/2018 6:58 PM CLINICAL INDICATION: PHH; leg edema TECHNIQUE: Departmental protocol COMPARISON: 11/03/2018 FINDINGS: There is a fine reticular pattern of increased density throughout the lungs moderately silhouetting t he pulmonary vasculature symmetrically, and more conspicuous on the present examination. Minimal biba silar partial airlessness is also noted. The pleural spaces demonstrate bilateral pleural effusions, greater on the left. The cardiac silhouette is moderately enlarged. The skeletal structures and soft tissues are negative for acute findings. IMPRESSION: Cardiogenic mild interstitial phase pulmonary edema pattern, with bilateral small pleural effusions.
--- NOTE | 2018-11-06 21:07 | PN ---
PROGRESS NOTE This patient was admitted with low hemoglobin and type 2 myocardial injury. Patient is doing well. He does have some exertional shortness of breath. Colonoscopy was performed which showed small polyps. The blood pressure is 110/50 mmHg, heart rate is 80 per minute. First and second heart sounds are normal. Lungs are clinically clear to auscultation and percussion. The patient is started on Eliquis 5 mg b.i.d. in view of his labile PT/INR on Coumadin. This was explained to the patient. Patient will follow up with Dr. Gardner and would be considered for stress test as outpatient. MMODL / IJN: [id number] /
[2018-11-07] MEDS: FUROSEMIDE 10 MG/ML 10 ML VIAL IV SCH (00:16)
[2018-11-07] MEDS: METHADONE 5 MG TAB PO SCH ×3 (02:58→17:15)
[2018-11-07 05:24] LABS: Potassium 3.8 mmol/L (3.5-5.1)
[2018-11-07 05:26] LABS: Anisocytosis Slight; Basophils # (A) 0.1 k/uL (0-0.2); Basophils % (A) 1 %; Eosinophils # (A) 0.5 k/uL (0-0.7); Eosinophils % (A) 7 %; HCT 26.1 % (39.0-53.0); HGB 7.6 gm/dL (13.0-17.5); Hypochromasia Marked; Lymphocytes # (A) 1.3 k/uL (1.0-4.8); Lymphocytes % (A) 17 %; MCH 21.3 pg (25.0-35.0); MCHC 29.2 g/dL (31.0-37.0); Mean Platelet Volume 6.8; Microcytosis Moderate; Monocytes # (A) 0.6 k/uL (0-1.0); Monocytes % (A) 9 %; Neutrophils # (A) 4.7 k/uL (1.3-7.7); Neutrophils % (A) 63 %; Platelet Count 301 k/uL (150-450); Poikilocytosis Moderate; RBC 3.58 m/uL (4.30-5.90); RDW 18.4 % (11.5-15.5); WBC 7.5 k/uL (3.8-10.6)
[2018-11-07 06:40] LABS: Glucose,Whole Blood 182 mg/dL (75-99)
[2018-11-07] MEDS: INSULIN ASPART (NovoLOG) 100 UNIT/ML VIAL SQ SCH ×4 (07:01→21:00)
[2018-11-07] MEDS: IPRATROPIUM-ALBUTEROL 3 ML NEB INHALATION SCH ×4 (07:40→19:18)
[2018-11-07] MEDS: INSULIN DETEMIR (LEVEMIR) 100 UNIT/ML SYR SQ SCH (08:04)
[2018-11-07] MEDS: POTASSIUM CHLORIDE ER 10 MEQ TAB.ER.PRT PO SCH (09:51)
[2018-11-07] MEDS: METOPROLOL TARTRATE 50 MG TAB PO SCH ×2 (09:51→21:01)
[2018-11-07] MEDS: MAGNESIUM OXIDE 400 MG TAB PO SCH (09:51)
[2018-11-07] MEDS: CYCLOBENZAPRINE 10 MG TAB PO SCH ×3 (09:51→21:02)
[2018-11-07] MEDS: SERTRALINE 100 MG TAB PO SCH (09:52)
[2018-11-07] MEDS: PANTOPRAZOLE 40 MG TABLET PO SCH ×2 (09:52→17:18)
[2018-11-07] MEDS: SENNOSIDES-DOCUSATE SODIUM 1 EACH TAB PO SCH ×2 (09:52→21:01)
[2018-11-07] MEDS: ATORVASTATIN 80 MG TAB PO SCH (09:52)
[2018-11-07] MEDS: VIT A,C & E-LUTEIN-MINERALS 1 EACH TAB PO SCH (09:52)
[2018-11-07] MEDS: APIXABAN 5 MG TAB PO SCH ×2 (09:52→21:01)
[2018-11-07] MEDS: VITAMIN E (DL,TOCOPHERYL ACET) 400 UNIT CAP PO SCH (09:52)
[2018-11-07] MEDS: DICLOFENAC SODIUM GEL 100 GM TUBE TOPICAL SCH ×4 (09:53→22:22)
[2018-11-07] MEDS ORDERED: LACTULOSE 20 GM/30 ML CUP PO ONE (11:40)
--- NOTE | 2018-11-07 12:08 | ECHOF ---
Referral Reason:elevTrop MEASUREMENTS -------- HEIGHT: 185.4 cm WEIGHT: 111.1 kg BP: 90/62 RVIDd: 4.1 cm (< 3.3) IVSd: 1.5 cm (0.6 - 1.1) LVIDd: 5.5 cm (3.9 - 5.3) LVPWd: 1.4 cm (0.6 - 1.1) IVSs: 1.7 cm LVIDs: 4.5 cm LVPWs: 1.7 cm LA Diam: 4.8 cm (2.7 - 3.8) LAESV Index (A-L): 37.74 ml/m Ao Diam: 3.9 cm (2.0 - 3.7) AV Cusp: 2.6 cm (1.5 - 2.6) MV EXCURSION: 17.961 mm (> 18.000) MV EF SLOPE: 141 mm/s (70 - 150) EPSS: 1.2 cm RAP: 15.00 mmHg RVSP: 48.87 mmHg FINDINGS -------- Atrial fibrillation. This was a technically difficult study with suboptimal apical views. The left ventricular size is normal. There is moderate concentric left ventricular hypertrophy. O verall left ventricular systolic function is moderate-severely impaired with, an EF between 30 - 35 % . The right ventricle is moderate to severely enlarged. LA is moderately dilated 34-39 ml/m2 The right atrium is normal in size. Lumason used Interatrial and interventricular septum intact. The aortic valve is trileaflet and appears structurally normal. Mild mitral regurgitation is present. Mild tricuspid regurgitation present. There is moderate pulmonary hypertension. The right ventric ular systolic pressure, as measured by Doppler, is 48.87mmHg. Trace/mild (physiologic) pulmonic regurgitation. The aortic root is dilated measuring 3.9cm. The inferior vena cava is dilated with poor inspiratory collapse which is consistent with estimated r ight atrial pressure of 15 mmHg. There is no pericardial effusion. CONCLUSIONS -------- 1. Atrial fibrillation. 2. This was a technically difficult study with suboptimal apical views. 3. The left ventricular size is normal. 4. There is moderate concentric left ventricular hypertrophy. 5. Overall left ventricular systolic function is moderate-severely impaired with, an EF between 30 - 35 %. 6. The right ventricle is moderate to severely enlarged. 7. LA is moderately dilated 34-39 ml/m2 8. The right atrium is normal in size. 9. Lumason used 10. Interatrial and interventricular septum intact. 11. The aortic valve is trileaflet and appears structurally normal. 12. Mild mitral regurgitation is present. 13. Mild tricuspid regurgitation present. 14. There is moderate pulmonary hypertension. 15. The right ventricular systolic pressure, as measured by Doppler, is 48.87mmHg. 16. Trace/mild (physiologic) pulmonic regurgitation. 17. The aortic root is dilated measuring 3.9cm. 18. The inferior vena cava is dilated with poor inspiratory collapse which is consistent with estimat ed right atrial pressure of 15 mmHg. 19. There is no pericardial effusion. GRAVITY PROSPECTOR: Mary Lou Dang RDCS
--- NOTE | 2018-11-07 12:19 | PN ---
PROGRESS NOTE This patient was admitted with anemia and low hemoglobin and type 2 myocardial injury. The patient remains stable with chronic atrial fibrillation with controlled rate. The patient gets short of breath with minimal activities. A chest x-ray done today shows mild congestive cardiac failure. The patient's heart rate is 80 per minute, blood pressure is 123/68 mmHg, oxygen saturation is 96 on 2 L. Patient has evidence of bilateral wheezes. The patient did diurese about 3 L of the fluid yesterday. ASSESSMENT AND PLAN: This patient has significant shortness of breath with minimal activities. May benefit from IV diuretic therapy for the next 2 to 3 days. I will discuss with Dr. Underwood. I will check the BNP level. MMODL / IJN: [id number] /
--- NOTE | 2018-11-07 12:19 | PN ---
PROGRESS NOTE This patient was admitted with low hemoglobin, shortness of breath, type 2 myocardial injury. He is feeling well. He does have exertional shortness of breath. Patient has evidence of bilateral wheezing and rhonchi. Patient may have underlying COPD and acute bronchitis responsible for the symptoms of shortness of breath. Chest x-ray suggestive of mild heart failure. Patient has been getting Lasix. MMODL / IJN: [id number] /
[2018-11-07] MEDS: acetaZOLAMIDE 250 MG TAB PO SCH ×2 (13:30→22:31)
--- NOTE | 2018-11-07 14:31 | XR ---
EXAMINATION TYPE: XR chest 1V portable DATE OF EXAM: 11/07/2018 COMPARISON: Prior chest x-ray 11/06/2018 HISTORY: Congestive heart failure TECHNIQUE: Single frontal view of the chest is obtained. FINDINGS: Patient is rotated toward the right. There are overlying cardiac leads. Bibasilar increased densities present, left hemidiaphragm is obscured. No evident pneumothorax. Heart is enlarged. There are overlying cardiac leads. Aorta is dense. Prominent lung volume may be indicative of underlying C OPD. IMPRESSION: Rotated exam. Suspect basilar atelectasis, possible associated effusions. Cardiomegaly. Rotated exam.
[2018-11-07] MEDS ORDERED: FUROSEMIDE 10 MG/ML 4 ML VIAL IV SCH (16:00)
[2018-11-07 16:59] LABS: Glucose,Whole Blood 246 mg/dL (75-99)
[2018-11-07] MEDS: methylPREDNISolone SOD SUCCI 40 MG/ML 1 ML VIAL IV SCH (17:15)
[2018-11-07] MEDS: CYANOCOBALAMIN 500 MCG TAB PO SCH (17:18)
[2018-11-07] MEDS: SODIUM CHLORIDE 0.9% 1,000 ML IV SCH (17:30)
[2018-11-07 20:52] LABS: Glucose,Whole Blood 170 mg/dL (75-99)
[2018-11-07] MEDS: MONTELUKAST 10 MG TAB PO SCH (21:01)
--- NOTE | 2018-11-07 21:51 | P.PN ---
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 Patient also has got CHF with EF of 30- 35% underlying atrial fibrillation. Patient previously also's had a lumbar L3- L4 psych epidural abscess that was treated. Also known carotid artery disease with prior stent, depression uses a walker to baseline COPD presbyesophagus causing chronic dysphagia. Patient presents with DrInder feeling weak and tired. For about 4 days prior to come in and patient been having hematuria coty with stopped at her the day after he came in. He did receive antibiotics per his family doctor for possible UTI. is present with him. Patient is getting easily short winded now with taking a few steps only. Very anxious. Admitted with acute blood loss anemia felt to be combination of possibly GI and hematuria at home. Did receive a unit of blood. Also received extra dose of IV Lasix. Today-I started the patient on IV Lasix last night. Still feels short of breath this morning. Discussed with Dr. VC Mesa from cardiology. Plan to keep him on IV Lasix. Review of systems: Was done for constitutional, cardiovascular, GI, pulmonary. relevant finding as above Active Medications Acetazolamide (Diamox) 250 mg PO BID [facility] Last Admin: 11/07/18 13:30 Dose: 250 mg Documented by: Albuterol/Ipratropium (Duoneb 0.5 Mg-3 Mg/3 Ml Soln) 3 ml INHALATION RT-TID PRN PRN Reason: Shortness Of Breath Last Admin: 11/06/18 07:28 Dose: 3 ml Documented by: Albuterol/Ipratropium (Duoneb 0.5 Mg-3 Mg/3 Ml Soln) 3 ml INHALATION RT-QID [facility] Last Admin: 11/07/18 19:18 Dose: Not Given Documented by: Apixaban (Eliquis) 5 mg PO BID [facility] Last Admin: 11/07/18 21:01 Dose: 5 mg Documented by: Atorvastatin Calcium (Lipitor) 80 mg PO DAILY [facility] Last Admin: 11/07/18 09:52 Dose: 80 mg Documented by: Cyanocobalamin (Vitamin B-12) 1,000 mcg PO DAILY@1200 [facility] Last Admin: 11/07/18 17:18 Dose: 1,000 mcg Documented by: Cyclobenzaprine HCl (Flexeril) 10 mg PO TID [facility] Last Admin: 11/07/18 21:02 Dose: 10 mg Documented by: Diclofenac Sodium (Voltaren Gel) 2 gm TOPICAL QID [facility] Last Admin: 11/07/18 13:30 Dose: Not Given Documented by: Fluticasone Propionate (Flonase Nasal [place]) 2 spray EA NOSTRIL DAILY PRN PRN Reason: Allergy Symptoms Last Admin: 11/07/18 09:52 Dose: 2 spray Documented by: Furosemide (Lasix) 40 mg IV Q8HR [facility] Last Admin: 11/07/18 17:12 Dose: 40 mg Documented by: Hydroxyzine HCl (Atarax) 25 mg PO TID PRN PRN Reason: Itching Last Admin: 11/06/18 20:21 Dose: 25 mg Documented by: Sodium Chloride (Saline 0.9%) 1,000 mls @ 20 mls/hr IV .Q24H [facility] Last Admin: 11/07/18 17:30 Dose: Not Given Documented by: Ceftriaxone Sodium 1 gm/ (Sodium Chloride) 50 mls @ 100 mls/hr IVPB Q24HR [facility] Last Admin: 11/07/18 09:47 Dose: 100 mls/hr Documented by: Insulin Aspart (Novolog) 5 unit SQ AC-BID [facility] Last Admin: 11/07/18 17:13 Dose: 5 unit Documented by: Insulin Aspart (Novolog) 4 unit SQ 1200 [facility] Last Admin: 11/07/18 17:10 Dose: Not Given Documented by: Insulin Aspart (Novolog) 0 unit SQ ACHS [facility]; Protocol Last Admin: 11/07/18 21:00 Dose: 2 unit Documented by: Insulin Detemir (Levemir) 26 unit SQ DAILY@0700 [facility] Last Admin: 11/07/18 08:04 Dose: 26 unit Documented by: Magnesium Oxide (Mag-Ox) 400 mg PO DAILY [facility] Last Admin: 11/07/18 09:51 Dose: 400 mg Documented by: Methadone HCl (Dolophine) 5 mg PO Q8H [facility] Last Admin: 11/07/18 17:15 Dose: 5 mg Documented by: Methylprednisolone Sodium Succinate (Solu-Medrol) 40 mg IV Q6HR [facility] Last Admin: 11/07/18 17:15 Dose: 40 mg Documented by: Metolazone (Zaroxolyn) 2.5 mg PO DAILY PRN PRN Reason: Edema Metoprolol Tartrate (Lopressor) 50 mg PO BID [facility] Last Admin: 11/07/18 21:01 Dose: 50 mg Documented by: Miscellaneous Information (Potassium Per Protocol) 1 each MISCELLANE DAILY PRN; Protocol PRN Reason: Per Protocol Montelukast Sodium (Singulair) 10 mg PO HS [facility] Last Admin: 11/07/18 21:01 Dose: 10 mg Documented by: Multivitamins/Minerals (Ivite) 1 each PO DAILY [facility] Last Admin: 11/07/18 09:52 Dose: 1 each Documented by: Nitroglycerin (Nitrostat) 0.4 mg SUBLINGUAL Q5M PRN PRN Reason: Chest Pain Liraglutide [Victoza (]) 0.6 mg SQ DAILY [facility] Last Admin: 11/07/18 09:54 Dose: 0.6 mg Documented by: Pantoprazole Sodium (Protonix) 40 mg PO AC-BID [facility] Last Admin: 11/07/18 17:18 Dose: 40 mg Documented by: Potassium Chloride (K-Dur 10) 10 meq PO DAILY [facility] Last Admin: 11/07/18 09:51 Dose: 10 meq Documented by: Senna/Docusate Sodium (Senokot-S) 2 each PO BID [facility] Last Admin: 11/07/18 21:01 Dose: 2 each Documented by: Sertraline HCl (Zoloft) 100 mg PO DAILY [facility] Last Admin: 11/07/18 09:52 Dose: 100 mg Documented by: Triamcinolone Acetonide (Kenalog) 1 applic TOPICAL BID PRN PRN Reason: Itching Last Admin: 11/03/18 22:15 Dose: 1 applic Documented by: Vitamin E (Vitamin E) 400 unit PO DAILY@1200 [facility] Last Admin: 11/07/18 09:52 Dose: 400 unit Documented by: Physical examination: VITAL SIGNS: 98.4, 18, 19, 123/68, 96% on 2 L GENERAL: Propped up in bed slightly short of breath EYES: Pupils equal. Conjunctiva pale. HEENT: External appearance of nose and ears normal, oral cavity grossly normal, decreased hearing. NECK: JVD unable to assess, mass not palpable. HEART: First and second heart sounds are normal; no edema. LUNGS: Respiratory rate increased, decreased breath sounds, some wheezing. ABDOMEN: Soft, nontender, liver spleen not palpable, no masses palpable. PSYCH: Alert and oriented x3; mood and affect anxious. NEUROLOGICAL: Cranial nerves grossly; no facial asymmetry, decreased power of the right side. INVESTIGATIONS, reviewed in the clinical context: White count 7.5 hemoglobin 7.6 potassium 3.8 bun 2321.18 proBNP 4540 Chest x-ray film personally reviewed by me-shows pulmonary edema and pleural effusion Accu-Cheks 237, 187 Hemoglobin 7.7 Previous testing White count 12.7 hemoglobin 7.3 platelets 369 INR 4 potassium 4.6 BUN 30 creatinine 1.2 to Accu-Cheks 200, 232 EKG tracing personally reviewed by me-atrial flutter fibrillation rate controlled Chest x-ray film personally reviewed by me-possibly vascular congestion with small pleural effusion EGD showing mild gastritis. Colonoscopy resulted in some polyps being removed Assessment: -Acute blood loss anemia in a patient who complains of coty hematuria for 4 days prior to coming in. Patient does states he had a cystoscopy in [place] some time ago that was unremarkable. Need to rule out a GI cause. 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 We'll follow I's and O's closely. Follow.
[2018-11-07] MEDS: FUROSEMIDE 100 MG in SODIUM CHLORIDE 0.9% 90 ML IV SCH (22:21)
[2018-11-07] MEDS: hydrOXYzine HCL 25 MG TAB PO PRN (22:21)
[2018-11-08] MEDS: methylPREDNISolone SOD SUCCI 40 MG/ML 1 ML VIAL IV SCH ×6 (00:44→18:38)
[2018-11-08] MEDS: METHADONE 5 MG TAB PO SCH ×3 (03:14→18:24)
[2018-11-08 06:44] LABS: Glucose,Whole Blood 366 mg/dL (75-99)
[2018-11-08] MEDS: INSULIN ASPART (NovoLOG) 100 UNIT/ML VIAL SQ SCH ×7 (06:59→20:41)
[2018-11-08] MEDS: PANTOPRAZOLE 40 MG TABLET PO SCH ×2 (07:00→18:24)
[2018-11-08] MEDS: INSULIN DETEMIR (LEVEMIR) 100 UNIT/ML SYR SQ SCH (07:00)
[2018-11-08] MEDS: FUROSEMIDE 100 MG in SODIUM CHLORIDE 0.9% 90 ML IV SCH (07:05)
[2018-11-08] MEDS: acetaZOLAMIDE 250 MG TAB PO SCH (08:09)
[2018-11-08] MEDS: ATORVASTATIN 80 MG TAB PO SCH (08:11)
[2018-11-08] MEDS: APIXABAN 5 MG TAB PO SCH ×2 (08:11→20:42)
[2018-11-08] MEDS: CYCLOBENZAPRINE 10 MG TAB PO SCH ×3 (08:12→20:42)
[2018-11-08] MEDS: DICLOFENAC SODIUM GEL 100 GM TUBE TOPICAL SCH ×2 (08:12→12:32)
[2018-11-08] MEDS: MAGNESIUM OXIDE 400 MG TAB PO SCH (08:13)
[2018-11-08] MEDS: POTASSIUM CHLORIDE ER 10 MEQ TAB.ER.PRT PO SCH (08:13)
[2018-11-08] MEDS: SENNOSIDES-DOCUSATE SODIUM 1 EACH TAB PO SCH ×2 (08:13→20:42)
[2018-11-08] MEDS: SERTRALINE 100 MG TAB PO SCH (08:13)
[2018-11-08] MEDS: VIT A,C & E-LUTEIN-MINERALS 1 EACH TAB PO SCH (08:14)
[2018-11-08] MEDS: IPRATROPIUM-ALBUTEROL 3 ML NEB INHALATION SCH ×4 (08:16→19:10)
[2018-11-08] MEDS: METOPROLOL TARTRATE 50 MG TAB PO SCH ×2 (10:22→20:42)
--- NOTE | 2018-11-08 11:44 | PN ---
PROGRESS NOTE Mr. Flores is admitted with low hemoglobin. The patient has a cardiomyopathy and COPD. The patient was started on Lasix drip yesterday because of persistent exertional shortness of breath. The patient has a bilateral wheezing and rhonchi. Chest x-ray does not show any significant failure. Patient's blood pressure is 130/80 mmHg, heart rate is 94 per minute. First and second heart sounds are normal. Lungs reveal a few scattered wheezes. The patient's urine output remains good. Creatinine is 1.18. Electrolytes are normal. Hemoglobin is 7.6. Patient's proBNP level has come down to 4500 from 10,000. FINAL IMPRESSION: This patient's congestive heart failure is improving. Some of the exertional shortness of breath is possibly due to underlying chronic obstructive pulmonary disease. We will ambulate the patient and check oxygen saturation. Repeat the chest x-ray tomorrow morning. If there is no significant failure by chest x-ray, patient can be probably discharged home on p.o. Lasix. MMLAURENL / IJN: [id number] /
[2018-11-08 11:56] LABS: Glucose,Whole Blood 377 mg/dL (75-99)
[2018-11-08] MEDS: CYANOCOBALAMIN 500 MCG TAB PO SCH (12:31)
[2018-11-08] MEDS: VITAMIN E (DL,TOCOPHERYL ACET) 400 UNIT CAP PO SCH (13:17)
[2018-11-08 14:11] LABS: Calcium 8.4 mg/dL (8.4-10.2); Potassium 3.9 mmol/L (3.5-5.1)
[2018-11-08] MEDS: FUROSEMIDE 10 MG/ML 10 ML VIAL IV SCH (15:55)
[2018-11-08] MEDS: SODIUM CHLORIDE 0.9% 1,000 ML IV SCH (15:56)
[2018-11-08 16:51] LABS: Glucose,Whole Blood 546 mg/dL (75-99)
[2018-11-08 16:53] LABS: Glucose,Whole Blood 467 mg/dL (75-99)
--- NOTE | 2018-11-08 19:28 | P.DS ---
"Providers Date of admission: 10/31/18 14:17 Expected date of discharge: 11/08/18 Attending physician: Ephraim Underwood Consults: 10/31/18 14:17 Consult Physician Urgent Consulting Provider: Hilton Garcia Consult Reason/Comments: elev trop Do you want consulting provider notified?: Yes 11/01/18 13:59 Consult Physician Routine Consulting Provider: Ej Ovalle Consult Reason/Comments: coty hematuria prior to admission Do you want consulting provider notified?: Yes Primary care physician: 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 Patient also has got CHF with EF of 30- 35% underlying atrial fibrillation. Patient previously also's had a lumbar L3- L4 psych epidural abscess that was treated. Also known carotid artery disease with prior stent, depression uses a walker to baseline COPD presbyesophagus causing chronic dysphagia. Patient presents with Dr. feeling weak and tired. For about 4 days prior to come in and patient been having hematuria coty with stopped at her the day after he came in. He did receive antibiotics per his family doctor for possible UTI. is present with him. Patient is getting easily short winded now with taking a few steps only. Very anxious. Admitted with acute blood loss anemia felt to be combination of possibly GI and hematuria at home. Did receive 2 units of blood. Also treated with IV Lasix.. Patient did undergo EGD and colonoscopy. Found to have mild gastritis. And some polyps removed from hepatic flexure. Coumadin was switched over to eliquis by cardiology. Seen by urology. No interventions at present time. Patient breathing is greatly improved.. Consultation: Dr. VC Mesa from cardiology Dr. Sapp from GI Dr. Arroyo from urology| Physical examination: VITAL SIGNS: 97.9, 85, 20, 136/74, 86% room air earlier. GENERAL: Propped up in beddoing much betterh EYES: Pupils equal. Conjunctiva pale. HEENT: External appearance of nose and ears normal, oral cavity grossly normal, decreased hearing. NECK: JVD unable to assess, mass not palpable. HEART: First and second heart sounds are normal; no edema. LUNGS: Respiratory rate increased, decreased breath sounds, ABDOMEN: Soft, nontender, liver spleen not palpable, no masses palpable. PSYCH: Alert and oriented x3; mood and affect anxious. NEUROLOGICAL: Cranial nerves grossly; no facial asymmetry, decreased power of the right side. INVESTIGATIONS, reviewed in the clinical context: Bun 30 creatinine 1.48 Chest x-ray film personally reviewed by me-shows pulmonary edema and pleural eff usion Accu-Cheks 237, 187 Hemoglobin 7.7 Previous testing White count 12.7 hemoglobin 7.3 platelets 369 INR 4 potassium 4.6 BUN 30 creatinine 1.2 to Accu-Cheks 200, 232 EKG tracing personally reviewed by me-atrial flutter fibrillation rate controlled Chest x-ray film personally reviewed by me-possibly vascular congestion with small pleural effusion EGD showing mild gastritis. Colonoscopy resulted in some polyps being removed Discharge diagnosis: -Acute blood loss anemia in a patient who complains of coty hematuria for 4 days prior to coming in. Patient does states he had a cystoscopy in [place] some time ago that was unremarkable. . 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 -Coronary artery disease with stent -Chronic gait dysfunction uses a walker -COPD in X smoker -presbyesophagus, Disposition: Home Patient Condition at Discharge: Stable Plan - Discharge Summary Discharge Rx Participant: Yes New Discharge Prescriptions: New Bumetanide [BUMEX] 2 mg PO DAILY #1 tab Apixaban [Eliquis] 5 mg PO BID #60 tab Atorvastatin [Lipitor] 80 mg PO DAILY #30 tab Metoprolol Tartrate [Lopressor] 50 mg PO BID #60 tab Sennosides-Docusate Sodium [Senokot-S] 2 each PO BID #60 tab Melatonin 3 mg PO HS tablet Continue Triamcinolone 0.1% Cream [Kenalog 0.1% Cream] 1 applic TOPICAL BID PRN PRN Reason: Itching Methadone [Dolophine] 5 mg PO Q8H #9 tab Omeprazole [PriLOSEC] 20 mg PO AC-BID@,16 Magnesium Oxide [Mag-Ox] 250 mg PO DAILY Vitamin E 100 unit PO DAILY@1200 Liraglutide [Victoza 2-Garry] 0.6 mg SQ DAILY Sertraline [Zoloft] 100 mg PO DAILY Potassium Chloride ER [K-Dur 10] 10 meq PO DAILY Nitroglycerin Sl Tabs [Nitrostat] 0.4 mg SUBLINGUAL Q5M PRN PRN Reason: Chest Pain Montelukast [Singulair] 10 mg PO HS Ipratropium-Albuterol Nebulize [Duoneb 0.5 mg-3 mg/3 ml Soln] 3 ml INHALATION RT-TID PRN PRN Reason: Shortness Of Breath hydrOXYzine HCL [Atarax] 25 mg PO TID PRN PRN Reason: Itching Fluticasone Nasal [place] [Flonase Nasal [place]] 2 spr EA NOSTRIL DAILY PRN PRN Reason: Allergy Symptoms Eye Vitamin 1 tab PO DAILY Diclofenac Sodium [Voltaren Gel] 2 gram TOPICAL QID Cyclobenzaprine [Flexeril] 10 mg PO TID Cyanocobalamin (Vitamin B-12) [Vitamin B-12] 1,000 mcg PO DAILY@1200 Metolazone [Zaroxolyn] 2.5 mg PO DAILY PRN PRN Reason: Edema Changed Aspirin EC [Ecotrin Low Dose] 81 mg PO HS #0 Insulin Glargine,Hum.rec.anlog [Toujeo Solostar] 36 units SQ DAILY #0 Discontinued Furosemide [Lasix] 80 mg PO DAILY Metoprolol Tartrate [Lopressor] 100 mg PO BID@0800,1600 Warfarin [Coumadin] 5 mg PO HS Insulin Glargine,Hum.rec.anlog [Toujeo Solostar] 50 units SQ DAILY Discharge Medication List Triamcinolone 0.1% Cream [Kenalog 0.1% Cream] 1 applic TOPICAL BID PRN 07/08/17 [History] Methadone [Dolophine] 5 mg PO Q8H #9 tab 09/13/17 [Rx] Omeprazole [PriLOSEC] 20 mg PO AC-BID@08,16 09/20/17 [History] Cyanocobalamin (Vitamin B-12) [Vitamin B-12] 1,000 mcg PO DAILY@1200 10/31/18 [History] Cyclobenzaprine [Flexeril] 10 mg PO TID 10/31/18 [History] Diclofenac Sodium [Voltaren Gel] 2 gram TOPICAL QID 10/31/18 [History] Eye Vitamin 1 tab PO DAILY 10/31/18 [History] Fluticasone Nasal [place] [Flonase Nasal [place]] 2 spr EA NOSTRIL DAILY PRN 06/15 [History] Ipratropium-Albuterol Nebulize [Duoneb 0.5 mg-3 mg/3 ml Soln] 3 ml INHALATION RT-TID PRN 10/31/18 [History] Liraglutide [Victoza 2-Garry] 0.6 mg SQ DAILY 10/31/18 [History] Magnesium Oxide [Mag-Ox] 250 mg PO DAILY 10/31/18 [History] Metolazone [Zaroxolyn] 2.5 mg PO DAILY PRN 10/31/18 [History] Montelukast [Singulair] 10 mg PO HS 10/31/18 [History] Nitroglycerin Sl Tabs [Nitrostat] 0.4 mg SUBLINGUAL Q5M PRN 10/31/18 [History] Potassium Chloride ER [K-Dur 10] 10 meq PO DAILY 10/31/18 [History] Sertraline [Zoloft] 100 mg PO DAILY 10/31/18 [History] Vitamin E 100 unit PO DAILY@1200 10/31/18 [History] hydrOXYzine HCL [Atarax] 25 mg PO TID PRN 10/31/18 [History] Apixaban [Eliquis] 5 mg PO BID #60 tab 11/08/18 [Rx] Aspirin EC [Ecotrin Low Dose] 81 mg PO HS #0 11/08/18 [Rx] Atorvastatin [Lipitor] 80 mg PO DAILY #30 tab 11/08/18 [Rx] Bumetanide [BUMEX] 2 mg PO DAILY #1 tab 11/08/18 [Rx] Insulin Glargine,Hum.rec.anlog [Toujeo Solostar] 36 units SQ DAILY #0 11/08/18 [Rx] Melatonin 3 mg PO HS tablet 11/08/18 [Rx] Metoprolol Tartrate [Lopressor] 50 mg PO BID #60 tab 11/08/18 [Rx] Sennosides-Docusate Sodium [Senokot-S] 2 each PO BID #60 tab 11/08/18 [Rx] Follow up Appointment(s)/Referral(s): [facility] Rescue OfficerDr. [Other] - 1 Week [facility], [NON-STAFF] - 1 Week Yosvany Escalona MD [Primary Care Provider] - 1-2 days Ambulatory/Diagnostic Orders: Basic Metabolic Panel [LAB.AMB] Time Frame: 5 Days, Location: None Selected Patient Instructions/Handouts: Heart Failure (DC), Heart Healthy Diet (DC), CO PD (Chronic Obstructive Pulmonary Disease) (DC) Activity/Diet/Wound Care/Special Instructions: BMP in 5 days"
[2018-11-08] MEDS: BUDESONIDE 1 MG/2 ML NEBU INHALATION SCH (20:17)
[2018-11-08 20:33] LABS: Glucose,Whole Blood 454 mg/dL (75-99)
[2018-11-08] MEDS ORDERED: INSULIN ASPART (NovoLOG) 100 UNIT/ML VIAL SQ ONE (20:40)
[2018-11-08] MEDS: MELATONIN 3 MG TABLET PO SCH (20:42)
[2018-11-08] MEDS: MONTELUKAST 10 MG TAB PO SCH (20:42)
[2018-11-08] MEDS ORDERED: INSULIN NPH 300 UNIT/3 ML VIAL SQ SCH (21:00)
[2018-11-09] MEDS: METHADONE 5 MG TAB PO SCH ×3 (03:09→18:53)
[2018-11-09 06:36] LABS: Glucose,Whole Blood 199 mg/dL (75-99)
[2018-11-09] MEDS: INSULIN ASPART (NovoLOG) 100 UNIT/ML VIAL SQ SCH ×7 (06:51→20:28)
[2018-11-09] MEDS: PANTOPRAZOLE 40 MG TABLET PO SCH ×2 (06:52→16:59)
[2018-11-09] MEDS ORDERED: INSULIN DETEMIR (LEVEMIR) 100 UNIT/ML SYR SQ SCH (07:00)
[2018-11-09] MEDS: POTASSIUM CHLORIDE ER 10 MEQ TAB.ER.PRT PO SCH (08:31)
[2018-11-09] MEDS: ATORVASTATIN 80 MG TAB PO SCH (08:31)
[2018-11-09] MEDS: CYCLOBENZAPRINE 10 MG TAB PO SCH ×3 (08:31→20:29)
[2018-11-09] MEDS: METOPROLOL TARTRATE 50 MG TAB PO SCH ×2 (08:31→20:29)
[2018-11-09] MEDS: SERTRALINE 100 MG TAB PO SCH (08:31)
[2018-11-09] MEDS: VIT A,C & E-LUTEIN-MINERALS 1 EACH TAB PO SCH (08:31)
[2018-11-09] MEDS: APIXABAN 5 MG TAB PO SCH ×2 (08:31→20:28)
[2018-11-09] MEDS: SENNOSIDES-DOCUSATE SODIUM 1 EACH TAB PO SCH ×2 (08:31→20:29)
[2018-11-09] MEDS: MAGNESIUM OXIDE 400 MG TAB PO SCH (08:31)
[2018-11-09] MEDS: BUMETANIDE 1 MG TAB PO SCH (08:32)
[2018-11-09] MEDS: IPRATROPIUM-ALBUTEROL 3 ML NEB INHALATION SCH ×4 (08:32→19:40)
[2018-11-09] MEDS: BUDESONIDE 1 MG/2 ML NEBU INHALATION SCH (08:33)
[2018-11-09] MEDS: CYANOCOBALAMIN 500 MCG TAB PO SCH (10:37)
[2018-11-09 12:08] LABS: Glucose,Whole Blood 225 mg/dL (75-99)
[2018-11-09] MEDS: VITAMIN E (DL,TOCOPHERYL ACET) 400 UNIT CAP PO SCH (12:43)
[2018-11-09 16:55] LABS: Glucose,Whole Blood 156 mg/dL (75-99)
[2018-11-09] MEDS: SODIUM CHLORIDE 0.9% 1,000 ML IV SCH (16:57)
[2018-11-09 19:30] LABS: Anisocytosis Slight; Basophils # (A) 0.1 k/uL (0-0.2); Basophils % (A) 1 %; Eosinophils # (A) 0.3 k/uL (0-0.7); Eosinophils % (A) 3 %; HCT 28.9 % (39.0-53.0); HGB 8.4 gm/dL (13.0-17.5); Hypochromasia Marked; Lymphocytes # (A) 1.5 k/uL (1.0-4.8); Lymphocytes % (A) 16 %; MCH 21.4 pg (25.0-35.0); MCHC 28.9 g/dL (31.0-37.0); MCV 74.1 fL (80.0-100.0); Mean Platelet Volume 6.6; Microcytosis Moderate; Monocytes # (A) 0.6 k/uL (0-1.0); Monocytes % (A) 6 %; Neutrophils # (A) 6.7 k/uL (1.3-7.7); Neutrophils % (A) 72 %; Platelet Count 310 k/uL (150-450); Poikilocytosis Moderate; RBC 3.91 m/uL (4.30-5.90); RDW 18.1 % (11.5-15.5); WBC 9.4 k/uL (3.8-10.6)
[2018-11-09 19:43] LABS: Calcium 8.4 mg/dL (8.4-10.2); Potassium 3.7 mmol/L (3.5-5.1)
--- NOTE | 2018-11-09 20:15 | PN ---
PROGRESS NOTE This patient was admitted with shortness of breath. The patient had a low hemoglobin. The patient still continues to feel short of breath with minor activities. Denies orthopnea or PND. Denies any cough with expectoration. Patient continues to have bilateral rhonchi. First and second heart sounds are normal. Lungs reveal bilateral rhonchi. Patient's medications are reviewed. Patient is afraid to go home and thinks he may come back easily. We will give him another dose of Lasix IV and recheck the chest x-ray and BNP level. We will also consider patient to go to the rehab unit. MMODL / IJN: [id number] /
[2018-11-09 20:25] LABS: Glucose,Whole Blood 239 mg/dL (75-99)
[2018-11-09] MEDS: MONTELUKAST 10 MG TAB PO SCH (20:28)
[2018-11-09] MEDS: MELATONIN 3 MG TABLET PO SCH (20:29)
--- NOTE | 2018-11-09 20:47 | P.PN ---
Subjective this is a pleasant 78 yo M with multiple medical problems , who was admitted with hematuria and GI bleed, status post EGD/COlonoscopy showing mild gastritis and colon polyp, removed. he is been seen by urologist as well, his hematuria and GI bleed are resolved now and his Hemoglobin is stable . pt is on protonix . pt course was complicated with NSTEMI , seen by steam setter who recommend medical management now. pt coumadin was switched to eliquis by cardioligst . he is with a fib. rate controlled. and acute systolic CHF, on bumex 2 mg daily . his creatinine is stable at 1.4 , probably component of mild cardio-renal syndrome pt has been already been discharged by yesterday pending sugar control . however cardiology team recommended to keep the pt one more day for monitoring. sugar is controlled now. repeat labs from today are reviewed and look stable Objective - Vital Signs Vital signs: Vital Signs Temp 98.1 F 11/09/18 16:00 Pulse 98 11/09/18 16:00 Resp 18 11/09/18 16:00 BP 113/62 11/09/18 16:00 Pulse Ox 94 L 11/09/18 16:00 Intake & Output 11/09/18 11/09/18 11/10/18 06:59 18:59 06:59 Intake Total 180 1320 Output Total 200 975 Balance -20 345 Intake: Oral 180 1320 Output: Urine 200 975 Other: Voiding Method Urinal Urinal - Exam GENERAL: The patient is alert and oriented x3, not in any acute distress. Well developed, well nourished. HEENT: Pupils are round and equally reacting to light. EOMI. No scleral icterus. No conjunctival pallor. Normocephalic, atraumatic. No pharyngeal erythema. No thyromegaly. CARDIOVASCULAR: S1 and S2 present. No murmurs, rubs, or gallops. -PULMONARY: Chest is clear to auscultation, no wheezing or crackles. mild tachypnea at rest ABDOMEN: Soft, nontender, nondistended, normoactive bowel sounds. No palpable organomegaly. MUSCULOSKELETAL: No joint swelling or deformity. -EXTREMITIES: No cyanosis, clubbing, . mild leg edema . NEUROLOGICAL: Gross neurological examination did not reveal any focal deficits. SKIN: No rashes. - Labs CBC & Chem 7: 11/09/18 19:18 11/09/18 19:18 Labs: Abnormal Lab Results - Last 24 Hours (Table) 11/08/18 11/09/18 11/09/18 Range/Units 20:31 06:34 11:35 POC Glucose (mg/dL) 454 H 199 H 225 H (75-99) mg/dL 11/09/18 Range/Units 16:47 POC Glucose (mg/dL) 156 H (75-99) mg/dL Assessment and Plan Assessment: -hematuria and GI bleed, status post EGD/COlonoscopy showing mild gastritis and colon polyp, removed. -NSTEMI -a fib. rate controlled -acute systolic CHF, improved -mild acute kidney injury related to cardio-renal syndrome. -mild hyponatremia , improving Plan: keep monitoring pt . monitor vitals and sugar. follow up with cardiology team tomorrow about plan of care. continue with Bumox possible discharge in 24-48 hr
[2018-11-10] MEDS: METHADONE 5 MG TAB PO SCH ×3 (03:09→17:38)
[2018-11-10 06:30] LABS: Glucose,Whole Blood 231 mg/dL (75-99)
[2018-11-10] MEDS: INSULIN ASPART (NovoLOG) 100 UNIT/ML VIAL SQ SCH ×7 (06:54→20:47)
[2018-11-10] MEDS: PANTOPRAZOLE 40 MG TABLET PO SCH ×2 (06:55→17:42)
[2018-11-10] MEDS: IPRATROPIUM-ALBUTEROL 3 ML NEB INHALATION SCH ×4 (08:44→19:21)
[2018-11-10] MEDS: ATORVASTATIN 80 MG TAB PO SCH (08:57)
[2018-11-10] MEDS: METOPROLOL TARTRATE 50 MG TAB PO SCH ×2 (08:57→20:47)
[2018-11-10] MEDS: CYCLOBENZAPRINE 10 MG TAB PO SCH ×3 (08:58→20:47)
[2018-11-10] MEDS: SERTRALINE 100 MG TAB PO SCH (08:58)
[2018-11-10] MEDS: BUMETANIDE 1 MG TAB PO SCH (08:58)
[2018-11-10] MEDS: SENNOSIDES-DOCUSATE SODIUM 1 EACH TAB PO SCH ×2 (08:58→20:47)
[2018-11-10] MEDS: POTASSIUM CHLORIDE ER 10 MEQ TAB.ER.PRT PO SCH (08:58)
[2018-11-10] MEDS: APIXABAN 5 MG TAB PO SCH ×2 (08:59→20:47)
[2018-11-10] MEDS: VITAMIN E (DL,TOCOPHERYL ACET) 400 UNIT CAP PO SCH (08:59)
[2018-11-10] MEDS: CYANOCOBALAMIN 500 MCG TAB PO SCH (08:59)
[2018-11-10] MEDS: hydrOXYzine HCL 25 MG TAB PO PRN (09:04)
--- NOTE | 2018-11-10 10:45 | P.PN ---
Subjective This is a pleasant 78-year-old male past medical history significant for chronic systolic heart failure, coronary artery disease, ischemic cardiomyopathy, chronic persistent atrial fibrillation and COPD. He follows in the office with Dr. Gardner. Echocardiogram obtained on this admission reveals impaired LV systolic function with ejection fraction 30-35%, moderately dilated left atrium, moderate pulmonary hypertension with an RVSP of 48 mmHg and a dilated aortic root 3.9 cm. Patient is seen and examined sitting up in bed in mild respiratory distress. He continues to complain of ongoing exertional and at rest shortness of breath. He still does not feel so he is at his baseline for ready to go home. Currently is maintained on Bumex 2 mg daily per the primary care team. This was changed from Lasix in the previous 24 hours. Blood pressure 111/71 heart rate 77 afebrile maintaining oxygen saturation on room air. Weight is down 1 kg in the previous 48 hours and he continues to maintain a negative fluid balance. GENERAL: Well-appearing, well-nourished and in no acute distress. NECK: Supple without JVD or thyromegaly. LUNGS: Scattered rhonchi, bibasilar rales and faint expiratory wheezes noted. HEART: Irregular rate and rhythm without murmurs, rubs or gallops. S1 and S2 heard. EXTREMITIES: Normal range of motion, 1+ bilateral lower extremity pitting edema. No clubbing or cyanosis. Peripheral pulses intact. ASSESSMENT Acute on chronic systolic heart failure Ischemic cardiomyopathy, ejection fraction 30-35% COPD Acute kidney injury Chronic persistent atrial fibrillation on long-term anticoagulation with control led ventricular response Dyslipidemia Hypertension PLAN Discontinue Bumex and placed back on Lasix 80 mg twice a day. Give Zaroxolyn 2.5 mg daily scheduled. Repeat BMP today along with a repeat chest x-ray. Follow kidney function and electrolytes in the morning. Continue to document daily intake and output along with daily weights. Nurse Practitioner note has been reviewed, I agree with a documented findings and plan of care. Patient was seen and examined. Objective - Vital Signs Vital signs: Vital Signs Temp 97.9 F 11/10/18 03:00 Pulse 77 11/10/18 08:55 Resp 16 11/10/18 08:55 BP 111/71 11/10/18 08:00 Pulse Ox 100 11/10/18 08:00 Intake & Output 11/09/18 11/10/1819 18:59 06:59 18:59 Intake Total 1320 240 Output Total 975 1030 Balance 345 -1030 240 Weight 121.4 kg Intake: Oral 1320 240 Output: Urine 975 1030 Other: Voiding Method Urinal Urinal - Labs CBC & Chem 7: 11/09/18 19:18 11/09/18 19:18 Labs: Abnormal Lab Results - Last 24 Hours (Table) 11/09/18 11/09/18 11/09/18 Range/Units 11:35 16:47 19:18 RBC 3.91 L (4.30-5.90) m/uL Hgb 8.4 L (13.0-17.5) gm/dL Hct 28.9 L (39.0-53.0) % MCV 74.1 L (80.0-100.0) fL MCH 21.4 L (25.0-35.0) pg MCHC 28.9 L (31.0-37.0) g/dL RDW 18.1 H (11.5-15.5) % Sodium (137-145) mmol/L Chloride (98-107) mmol/L BUN (9-20) mg/dL Creatinine (0.66-1.25) mg/dL Glucose (74-99) mg/dL POC Glucose (mg/dL) 225 H 156 H (75-99) mg/dL 11/09/18 11/09/18 11/10/18 Range/Units 19:18 20:23 06:29 RBC (4.30-5.90) m/uL Hgb (13.0-17.5) gm/dL Hct (39.0-53.0) % MCV (80.0-100.0) fL MCH (25.0-35.0) pg MCHC (31.0-37.0) g/dL RDW (11.5-15.5) % Sodium 136 L (137-145) mmol/L Chloride 95 L (98-107) mmol/L BUN 41 H (9-20) mg/dL Creatinine 1.45 H (0.66-1.25) mg/dL Glucose 208 H (74-99) mg/dL POC Glucose (mg/dL) 239 H 231 H (75-99) mg/dL
--- NOTE | 2018-11-10 11:16 | P.PN ---
Subjective this is a pleasant 78 yo M with multiple medical problems , who was admitted with hematuria and GI bleed, status post EGD/COlonoscopy showing mild gastritis and colon polyp, removed. he is been seen by urologist as well, his hematuria and GI bleed are resolved now and his Hemoglobin is stable . pt is on protonix . pt course was complicated with NSTEMI , seen by leather roller who recommend medical management now. pt coumadin was switched to eliquis by cardioligst . he is with a fib. rate controlled. and acute systolic CHF, on bumex 2 mg daily . his creatinine is stable at 1.4 , probably component of mild cardio-renal syndrome pt has been already been discharged by yesterday pending sugar control . however cardiology team recommended to keep the pt one more day for monitoring. sugar is controlled now. repeat labs from today are reviewed and look stable 11/10/2018 Patient is still short of breath with some coughing. No chest pain. His vitals looks stable. Sugar is above 200. No labs from today. Patient has been evalu ated by leather roller today and Lasix 80 mg was added today. Biopsy results from his EGD/colonoscopy came back showing benign abnormalities like mild gastritis, tubular adenoma and inflammatory/hyperplastic polyps. We going to repeat chest x-ray. Check labs. Objective - Vital Signs Vital signs: Vital Signs Temp 97.9 F 11/10/18 03:00 Pulse 77 11/10/18 08:55 Resp 16 11/10/18 08:55 BP 111/71 11/10/18 08:00 Pulse Ox 100 11/10/18 08:00 Intake & Output 11/09/18 11/10/18 11/10/18 18:59 06:59 18:59 Intake Total 1320 240 Output Total 975 1030 Balance 345 -1030 240 Weight 121.4 kg Intake: Oral 1320 240 Output: Urine 975 1030 Other: Voiding Method Urinal Urinal Urinal - Exam GENERAL: The patient is alert and oriented x3, not in any acute distress. Well developed, well nourished. HEENT: Pupils are round and equally reacting to light. EOMI. No scleral icterus. No conjunctival pallor. Normocephalic, atraumatic. No pharyngeal erythema. No thyromegaly. CARDIOVASCULAR: S1 and S2 present. No murmurs, rubs, or gallops. -PULMONARY: Chest is clear to auscultation, no wheezing or crackles. mild tachypnea at rest ABDOMEN: Soft, nontender, nondistended, normoactive bowel sounds. No palpable organomegaly. MUSCULOSKELETAL: No joint swelling or deformity. -EXTREMITIES: No cyanosis, clubbing, . mild leg edema . NEUROLOGICAL: Gross neurological examination did not reveal any focal deficits. SKIN: No rashes. - Labs CBC & Chem 7: 11/09/18 19:18 11/09/18 19:18 Labs: Abnormal Lab Results - Last 24 Hours (Table) 11/09/18 11/09/18 11/09/18 Range/Units 11:35 16:47 19:18 RBC 3.91 L (4.30-5.90) m/uL Hgb 8.4 L (13.0-17.5) gm/dL Hct 28.9 L (39.0-53.0) % MCV 74.1 L (80.0-100.0) fL MCH 21.4 L (25.0-35.0) pg MCHC 28.9 L (31.0-37.0) g/dL RDW 18.1 H (11.5-15.5) % Sodium (137-145) mmol/L Chloride (98-107) mmol/L BUN (9-20) mg/dL Creatinine (0.66-1.25) mg/dL Glucose (74-99) mg/dL POC Glucose (mg/dL) 225 H 156 H (75-99) mg/dL 11/09/18 11/09/18 11/10/18 Range/Units 19:18 20:23 06:29 RBC (4.30-5.90) m/uL Hgb (13.0-17.5) gm/dL Hct (39.0-53.0) % MCV (80.0-100.0) fL MCH (25.0-35.0) pg MCHC (31.0-37.0) g/dL RDW (11.5-15.5) % Sodium 136 L (137-145) mmol/L Chloride 95 L (98-107) mmol/L BUN 41 H (9-20) mg/dL Creatinine 1.45 H (0.66-1.25) mg/dL Glucose 208 H (74-99) mg/dL POC Glucose (mg/dL) 239 H 231 H (75-99) mg/dL Assessment and Plan Assessment: -hematuria and GI bleed, status post EGD/COlonoscopy showing mild gastritis and colon polyp, removed. -NSTEMI -a fib. rate controlled -acute systolic CHF, improved -mild acute kidney injury related to cardio-renal syndrome. -mild hyponatremia , improving Plan: keep monitoring pt . monitor vitals and sugar. follow up with cardiology team tomorrow about plan of care. continue with Bumox. Start Lasix and peak chest x- ray. Monitor labs
[2018-11-10 11:27] LABS: Calcium 8.3 mg/dL (8.4-10.2); Magnesium 2.3 mg/dL (1.6-2.3); Potassium 3.7 mmol/L (3.5-5.1)
[2018-11-10 11:37] LABS: Anisocytosis Slight; Basophils % (A) 0 %; Eosinophils # (A) 0.4 k/uL (0-0.7); Eosinophils % (A) 4 %; HCT 27.8 % (39.0-53.0); HGB 8.1 gm/dL (13.0-17.5); Hypochromasia Marked; Lymphocytes # (A) 1.5 k/uL (1.0-4.8); Lymphocytes % (A) 17 %; MCH 21.1 pg (25.0-35.0); MCHC 29.2 g/dL (31.0-37.0); MCV 72.3 fL (80.0-100.0); Mean Platelet Volume 7.6; Microcytosis Moderate; Monocytes # (A) 0.7 k/uL (0-1.0); Monocytes % (A) 8 %; Neutrophils # (A) 6.1 k/uL (1.3-7.7); Neutrophils % (A) 68 %; Platelet Count 312 k/uL (150-450); Poikilocytosis Slight; RBC 3.84 m/uL (4.30-5.90); RDW 18.4 % (11.5-15.5)
[2018-11-10 11:48] LABS: Glucose,Whole Blood 258 mg/dL (75-99)
--- NOTE | 2018-11-10 12:05 | XR ---
EXAMINATION TYPE: XR chest 2V DATE OF EXAM: 11/10/2018 HISTORY: dyspnea, follow up . REFERENCE: Previous study dated 11/07/2018. FINDINGS: There continues to be atelectasis at the left lung base. Right lung is clear. Heart size up per limits of normal. I suspect small effusions. IMPRESSION: 1. CONTINUING LEFT BASILAR AIRSPACE DISEASE, LIKELY REPRESENTING ATELECTASIS OR PNEUMONIA. 2. I COULD NOT EXCLUDE A SMALL LEFT EFFUSION.
[2018-11-10] MEDS: VIT A,C & E-LUTEIN-MINERALS 1 EACH TAB PO SCH (12:06)
[2018-11-10] MEDS: MAGNESIUM OXIDE 400 MG TAB PO SCH (12:08)
[2018-11-10] MEDS: METOLAZONE 2.5 MG TAB PO SCH (12:12)
[2018-11-10 12:30] LABS: Total Bilirubin 0.3 mg/dL (0.2-1.3)
[2018-11-10 17:28] LABS: Glucose,Whole Blood 136 mg/dL (75-99)
[2018-11-10] MEDS: FUROSEMIDE 80 MG TAB PO SCH (17:38)
[2018-11-10] MEDS: SODIUM CHLORIDE 0.9% 1,000 ML IV SCH (19:44)
[2018-11-10 20:06] LABS: Glucose,Whole Blood 200 mg/dL (75-99)
[2018-11-10] MEDS: MONTELUKAST 10 MG TAB PO SCH (20:47)
[2018-11-10] MEDS: MELATONIN 3 MG TABLET PO SCH (20:47)
[2018-11-10] MEDS ORDERED: INSULIN DETEMIR (LEVEMIR) 100 UNIT/ML SYR SQ SCH (21:00)
[2018-11-11] MEDS: METHADONE 5 MG TAB PO SCH ×3 (03:27→17:16)
[2018-11-11 06:23] LABS: Glucose,Whole Blood 199 mg/dL (75-99)
[2018-11-11] MEDS: INSULIN ASPART (NovoLOG) 100 UNIT/ML VIAL SQ SCH ×4 (06:25→20:31)
[2018-11-11] MEDS: PANTOPRAZOLE 40 MG TABLET PO SCH ×2 (06:25→17:16)
[2018-11-11 06:37] LABS: Anisocytosis Slight; Basophils # (A) 0.1 k/uL (0-0.2); Basophils % (A) 1 %; Eosinophils # (A) 0.7 k/uL (0-0.7); Eosinophils % (A) 7 %; HGB 8.5 gm/dL (13.0-17.5); Hypochromasia Marked; Lymphocytes # (A) 1.8 k/uL (1.0-4.8); Lymphocytes % (A) 18 %; MCH 21.2 pg (25.0-35.0); MCHC 29.4 g/dL (31.0-37.0); MCV 71.9 fL (80.0-100.0); Mean Platelet Volume 7.4; Microcytosis Marked; Monocytes # (A) 0.8 k/uL (0-1.0); Monocytes % (A) 8 %; Neutrophils # (A) 6.2 k/uL (1.3-7.7); Neutrophils % (A) 64 %; Platelet Count 323 k/uL (150-450); Poikilocytosis Moderate; RBC 4.03 m/uL (4.30-5.90); RDW 18.4 % (11.5-15.5); WBC 9.7 k/uL (3.8-10.6)
[2018-11-11 06:50] LABS: Albumin 3.2 g/dL (3.5-5.0); Calcium 8.6 mg/dL (8.4-10.2); Potassium 3.3 mmol/L (3.5-5.1); Total Bilirubin 0.7 mg/dL (0.2-1.3); Total Protein 6.3 g/dL (6.3-8.2)
[2018-11-11] MEDS: SENNOSIDES-DOCUSATE SODIUM 1 EACH TAB PO SCH ×2 (08:22→20:41)
[2018-11-11] MEDS: CYCLOBENZAPRINE 10 MG TAB PO SCH ×3 (08:23→20:31)
[2018-11-11] MEDS: CYANOCOBALAMIN 500 MCG TAB PO SCH (08:23)
[2018-11-11] MEDS: MAGNESIUM OXIDE 400 MG TAB PO SCH (08:23)
[2018-11-11] MEDS: FUROSEMIDE 80 MG TAB PO SCH ×2 (08:23→17:16)
[2018-11-11] MEDS: APIXABAN 5 MG TAB PO SCH ×2 (08:23→20:30)
[2018-11-11] MEDS: METOPROLOL TARTRATE 50 MG TAB PO SCH ×2 (08:23→20:31)
[2018-11-11] MEDS: SERTRALINE 100 MG TAB PO SCH (08:23)
[2018-11-11] MEDS: POTASSIUM CHLORIDE ER 10 MEQ TAB.ER.PRT PO SCH (08:24)
[2018-11-11] MEDS: VITAMIN E (DL,TOCOPHERYL ACET) 400 UNIT CAP PO SCH (08:24)
[2018-11-11] MEDS: METOLAZONE 2.5 MG TAB PO SCH (08:24)
[2018-11-11] MEDS: ATORVASTATIN 80 MG TAB PO SCH (08:24)
[2018-11-11] MEDS: VIT A,C & E-LUTEIN-MINERALS 1 EACH TAB PO SCH (08:24)
[2018-11-11] MEDS: IPRATROPIUM-ALBUTEROL 3 ML NEB INHALATION SCH ×4 (08:31→19:49)
[2018-11-11] MEDS ORDERED: Potassium Replacement Protocol 1 EACH MISC MISCELLANE PRN ×2 (09:19→10:51)
--- NOTE | 2018-11-11 09:25 | P.PN ---
Subjective this is a pleasant 78 yo M with multiple medical problems , who was admitted with hematuria and GI bleed, status post EGD/COlonoscopy showing mild gastritis and colon polyp, removed. he is been seen by urologist as well, his hematuria and GI bleed are resolved now and his Hemoglobin is stable . pt is on protonix . pt course was complicated with NSTEMI , seen by director of cardiac cath lab who recommend medical management now. pt coumadin was switched to eliquis by cardioligst . he is with a fib. rate controlled. and acute systolic CHF, on bumex 2 mg daily . his creatinine is stable at 1.4 , probably component of mild cardio-renal syndrome pt has been already been discharged by yesterday pending sugar control . however cardiology team recommended to keep the pt one more day for monitoring. sugar is controlled now. repeat labs from today are reviewed and look stable 11/10/2018 Patient is still short of breath with some coughing. No chest pain. His vitals looks stable. Sugar is above 200. No labs from today. Patient has been evalu ated by director of cardiac cath lab today and Lasix 80 mg was added today. Biopsy results from his EGD/colonoscopy came back showing benign abnormalities like mild gastritis, tubular adenoma and inflammatory/hyperplastic polyps. We going to repeat chest x-ray. Check labs. 11/11/2018 Today patient is awake and alert with no chest pain. History of have some dyspnea and tachypnea although it's a little bit better compared to yesterday. This covered with green phlegm. And decreased air entry on chest examination with scattered expiratory wheezing. He is making good urine output. His creatinine went up slightly to 1.5 today. Low potassium was been replaced. Patient states that he has history of COPD but is not sure if he sees a wardrobe mistress outside. He started smoking at age 17 and he quit about 30 years ago. Patient symptoms and his clinical course is suggestive of acute COPD exacerbation so we'll start him today on steroids and antibiotics, continue with his breathing treatment. His chest x-ray from yesterday showing atelectasis versus pneumonia however patient has no fever and no white cell count. Review of systems CONSTITUTIONAL: No fever, no malaise, no fatigue. HEENT: No recent visual problems or hearing problems. Denied any sore throat. CARDIOVASCULAR: no palpitations, no syncope. PULMONARY: no hemoptysis. GASTROINTESTINAL: No diarrhea, no nausea, no vomiting, no abdominal pain. Normoactive bowel sounds. NEUROLOGICAL: No headaches, no weakness, no numbness. HEMATOLOGICAL: Denies any bleeding or petechiae. GENITOURINARY: Denies any burning micturition, frequency, or urgency. MUSCULOSKELETAL/RHEUMATOLOGICAL: Denies any joint pain, swelling, or any muscle pain. ENDOCRINE: Denies any polyuria or polydipsia. Active Medications Generic Name Dose Route Start Last Admin Trade Name Freq PRN Reason Stop Dose Admin Albuterol/Ipratropium 3 ml 10/31/18 17:37 11/06/18 07:28 Duoneb 0.5 Mg-3 Mg/3 Ml Soln INHALATION 3 ml RT-TID PRN Administration Shortness Of Breath Albuterol/Ipratropium 3 ml 11/06/18 16:50 11/11/18 08:31 Duoneb 0.5 Mg-3 Mg/3 Ml Soln INHALATION 3 ml RT-QID MARCELLE Administration Apixaban 5 mg 11/06/18 21:00 11/11/18 08:23 Eliquis PO 5 mg BID MARCELLE Administration Atorvastatin Calcium 80 mg 11/01/18 09:00 11/11/18 08:24 Lipitor PO 80 mg DAILY MARCELLE Administration Cyanocobalamin 1,000 mcg 11/01/18 12:00 11/11/18 08:23 Vitamin B-12 PO 1,000 mcg DAILY@1200 MARCELLE Administration Cyclobenzaprine HCl 10 mg 10/31/18 22:00 11/11/18 08:23 Flexeril PO 10 mg TID MARCELLE Administration Fluticasone Propionate 2 spray 10/31/18 17:37 11/07/18 09:52 Flonase Nasal [employer] NOSTRIL 2 spray DAILY PRN Administration Allergy Symptoms Furosemide 80 mg 11/10/18 16:00 11/11/18 08:23 Lasix PO 80 mg BID@0900,1600 [facility] Administration Hydroxyzine HCl 25 mg 10/31/18 17:37 11/10/18 09:04 Atarax PO 25 mg TID PRN Administration Itching Sodium Chloride 1,000 mls @ 20 mls/hr 10/31/18 14:30 11/10/18 19:44 Saline 0.9% IV Not Given .Q24H MARCELLE Doxycycline Hyclate 100 mg/ 100 mls @ 100 mls/hr 11/11/18 09:30 Sodium Chloride IVPB Q12HR MARCELLE Insulin Aspart 0 unit 11/07/18 21:00 11/11/18 06:25 Novolog SQ 3 unit ACHS MARCELLE Administration Protocol Insulin Detemir 20 unit 11/10/18 21:00 11/10/18 20:47 Levemir SQ 20 unit HS MARCELLE Administration Magnesium Oxide 400 mg 11/01/18 09:00 11/11/18 08:23 Mag-Ox PO 400 mg DAILY MARCELLE Administration Melatonin 3 mg 11/08/18 21:00 11/10/18 20:47 Melatonin PO 3 mg HS MARCELLE Administration Methadone HCl 5 mg 10/31/18 18:00 11/11/18 08:23 Dolophine PO 5 mg Q8H MARCELLE Administration Methylprednisolone Sodium Succinate 60 mg 11/11/18 09:20 Solu-Medrol IV Q6HR MARCELLE Metolazone 2.5 mg 11/10/18 10:00 11/11/18 08:24 Zaroxolyn PO 2.5 mg DAILY MARCELLE Administration Metoprolol Tartrate 50 mg 11/01/18 21:00 11/11/18 08:23 Lopressor PO 50 mg BID MARCELLE Administration Miscellaneous Information 1 each 11/05/18 05:06 Potassium Per Protocol MISCELLANE DAILY PRN Per Protocol Protocol Miscellaneous Information 1 each 11/11/18 09:19 Potassium Per Protocol MISCELLANE DAILY PRN Per Protocol Protocol Montelukast Sodium 10 mg 10/31/18 21:00 11/10/18 20:47 Singulair PO 10 mg HS MARCELLE Administration Multivitamins/Minerals 1 each 11/01/18 09:00 11/11/18 08:24 Ivite PO 1 each DAILY MARCELLE Administration Nitroglycerin 0.4 mg 10/31/18 14:17 Nitrostat SUBLINGUAL Q5M PRN Chest Pain Liraglutide [Victoza 0.6 mg 11/01/18 11:45 11/10/18 17:32 ] SQ Not Given DAILY MARCELLE Pantoprazole Sodium 40 mg 11/03/18 17:30 11/11/18 06:25 Protonix PO 40 mg AC-BID MARCELLE Administration Potassium Chloride 10 meq 11/01/18 09:00 11/11/18 08:24 K-Dur 10 PO 10 meq DAILY MARCELLE Administration Senna/Docusate Sodium 2 each 11/03/18 21:00 11/11/18 08:22 Senokot-S PO 2 each BID MARCELLE Administration Sertraline HCl 100 mg 11/01/18 09:00 11/11/18 08:23 Zoloft PO 100 mg DAILY MARCELLE Administration Triamcinolone Acetonide 1 applic 10/31/18 17:37 11/03/18 22:15 Kenalog TOPICAL 1 applic BID PRN Administration Itching Vitamin E 400 unit 11/01/18 12:00 11/11/18 08:24 Vitamin E PO 400 unit DAILY@1200 MARCELLE Administration Objective - Vital Signs Vital signs: Vital Signs Temp 97.1 F L 11/11/18 08:00 Pulse 71 11/11/18 08:43 Resp 16 11/11/18 08:43 BP 123/62 11/11/18 08:00 Pulse Ox 95 11/11/18 08:31 Intake & Output 11/10/18 11/11/18 11/11/18 18:59 06:59 18:59 Intake Total 462 240 Output Total 675 2350 Balance -213 -2350 240 Intake: Oral 462 240 Output: Urine 675 2350 Other: Voiding Method Urinal Urinal # Voids 200 # Bowel Movements 0 - Exam GENERAL: The patient is alert and oriented x3, not in any acute distress. Well developed, well nourished. HEENT: Pupils are round and equally reacting to light. EOMI. No scleral icterus. No conjunctival pallor. Normocephalic, atraumatic. No pharyngeal erythema. No thyromegaly. CARDIOVASCULAR: S1 and S2 present. No murmurs, rubs, or gallops. -PULMONARY: Chest is clear to auscultation, no crackles. mild tachypnea at rest. Scattered wheezing and decreased air entry on both sides ABDOMEN: Soft, nontender, nondistended, normoactive bowel sounds. No palpable organomegaly. MUSCULOSKELETAL: No joint swelling or deformity. -EXTREMITIES: No cyanosis, clubbing, . mild leg edema . NEUROLOGICAL: Gross neurological examination did not reveal any focal deficits. SKIN: No rashes. - Labs CBC & Chem 7: 11/11/18 05:58 11/11/18 05:58 Labs: Abnormal Lab Results - Last 24 Hours (Table) 11/10/18 11/10/18 11/10/18 Range/Units 10:57 10:57 11:45 RBC 3.84 L (4.30-5.90) m/uL Hgb 8.1 L (13.0-17.5) gm/dL Hct 27.8 L (39.0-53.0) % MCV 72.3 L (80.0-100.0) fL MCH 21.1 L (25.0-35.0) pg MCHC 29.2 L (31.0-37.0) g/dL RDW 18.4 H (11.5-15.5) % Sodium 136 L (137-145) mmol/L Potassium (3.5-5.1) mmol/L Chloride 95 L (98-107) mmol/L Carbon Dioxide 35 H (22-30) mmol/L BUN 38 H (9-20) mg/dL Creatinine 1.39 H (0.66-1.25) mg/dL Glucose 259 H (74-99) mg/dL POC Glucose (mg/dL) 258 H (75-99) mg/dL Calcium 8.3 L (8.4-10.2) mg/dL ALT 20 L (21-72) U/L Total Protein 6.0 L (6.3-8.2) g/dL Albumin 3.0 L (3.5-5.0) g/dL 11/10/18 11/10/18 11/11/18 Range/Units 17:14 20:04 05:58 RBC (4.30-5.90) m/uL Hgb (13.0-17.5) gm/dL Hct (39.0-53.0) % MCV (80.0-100.0) fL MCH (25.0-35.0) pg MCHC (31.0-37.0) g/dL RDW (11.5-15.5) % Sodium 134 L (137-145) mmol/L Potassium 3.3 L (3.5-5.1) mmol/L Chloride 89 L (98-107) mmol/L Carbon Dioxide 38 H (22-30) mmol/L BUN 39 H (9-20) mg/dL Creatinine 1.51 H (0.66-1.25) mg/dL Glucose 196 H (74-99) mg/dL POC Glucose (mg/dL) 136 H 200 H (75-99) mg/dL Calcium (8.4-10.2) mg/dL ALT (21-72) U/L Total Protein (6.3-8.2) g/dL Albumin 3.2 L (3.5-5.0) g/dL 11/11/18 11/11/18 Range/Units 05:58 06:22 RBC 4.03 L (4.30-5.90) m/uL Hgb 8.5 L (13.0-17.5) gm/dL Hct 29.0 L (39.0-53.0) % MCV 71.9 L (80.0-100.0) fL MCH 21.2 L (25.0-35.0) pg MCHC 29.4 L (31.0-37.0) g/dL RDW 18.4 H (11.5-15.5) % Sodium (137-145) mmol/L Potassium (3.5-5.1) mmol/L Chloride (98-107) mmol/L Carbon Dioxide (22-30) mmol/L BUN (9-20) mg/dL Creatinine (0.66-1.25) mg/dL Glucose (74-99) mg/dL POC Glucose (mg/dL) 199 H (75-99) mg/dL Calcium (8.4-10.2) mg/dL ALT (21-72) U/L Total Protein (6.3-8.2) g/dL Albumin (3.5-5.0) g/dL Assessment and Plan Assessment: -Possible acute COPD exacerbation -hematuria and GI bleed, status post EGD/COlonoscopy showing mild gastritis and colon polyp, removed. -NSTEMI -a fib. rate controlled -acute systolic CHF, improved -mild acute kidney injury related to cardio-renal syndrome. -mild hyponatremia , improving Plan: keep monitoring pt . monitor vitals and sugar. follow up with cardiology team tomorrow about plan of care. continue with Lasix. Start patient on Solu-Medrol on doxycycline. Follow-up creatinine level and electrolytes.Labs and medication were reviewed.. Continue same treatment. Continue with symptomatic treatment. Resume home medication. Monitor lytes and vitals. DVT and GI prophylaxis. Further recommendations of the clinical course of the patient DVT prophylaxis: Eliquis GI Prophylaxis: Protonix Prognosis is guarded
--- NOTE | 2018-11-11 10:15 | P.PN ---
Subjective This is a pleasant 78-year-old male past medical history significant for chronic systolic heart failure, coronary artery disease, ischemic cardiomyopathy, chronic persistent atrial fibrillation and COPD. He follows in the office with Dr. Gardner. Echocardiogram obtained on this admission reveals impaired LV systolic function with ejection fraction 30-35%, moderately dilated left atrium, moderate pulmonary hypertension with an RVSP of 48 mmHg and a dilated aortic root 3.9 cm. Patient is seen and examined sitting up in bed in no acute distress. His breathing has improved from yesterday. He still complains of feeling mildly short of breath at rest and with activity. No chest pain, dizziness or palpitations. Blood pressure 123/62 heart rate 71 afebrile maintaining oxygen saturation on room air. Laboratory data reviewed, hemoglobin 8.5, platelets 323, sodium 134, potassium 3.3, creatinine 1.51. GENERAL: Well-appearing, well-nourished and in no acute distress. NECK: Supple without JVD or thyromegaly. LUNGS: Scattered rhonchi, no wheezes or rales. HEART: Irregular rate and rhythm without murmurs, rubs or gallops. S1 and S2 heard. EXTREMITIES: Normal range of motion, trace bilateral lower extremity pitting edema. No clubbing or cyanosis. Peripheral pulses intact. ASSESSMENT Acute on chronic systolic heart failure, improving currently maintained on oral diuretics. Ischemic cardiomyopathy, ejection fraction 30-35% COPD Acute kidney injury Chronic persistent atrial fibrillation on long-term anticoagulation with contro lled ventricular response Dyslipidemia Hypertension PLAN Continue current medical regimen. Nurse Practitioner note has been reviewed, I agree with a documented findings and plan of care. Patient was seen and examined. Objective - Vital Signs Vital signs: Vital Signs Temp 97.1 F L 11/11/18 08:00 Pulse 71 11/11/18 08:43 Resp 16 11/11/18 08:43 BP 123/62 11/11/18 08:00 Pulse Ox 95 11/11/18 08:31 Intake & Output 11/10/18 11/11/18 11/11/18 18:59 06:59 18:59 Intake Total 462 240 Output Total 675 2350 Balance -213 -2350 240 Intake: Oral 462 240 Output: Urine 675 2350 Other: Voiding Method Urinal Urinal # Voids 200 # Bowel Movements 0 - Labs CBC & Chem 7: 11/11/18 05:58 11/11/18 05:58 Labs: Abnormal Lab Results - Last 24 Hours (Table) 11/10/18 11/10/18 11/10/18 Range/Units 10:57 10:57 11:45 RBC 3.84 L (4.30-5.90) m/uL Hgb 8.1 L (13.0-17.5) gm/dL Hct 27.8 L (39.0-53.0) % MCV 72.3 L (80.0-100.0) fL MCH 21.1 L (25.0-35.0) pg MCHC 29.2 L (31.0-37.0) g/dL RDW 18.4 H (11.5-15.5) % Sodium 136 L (137-145) mmol/L Potassium (3.5-5.1) mmol/L Chloride 95 L (98-107) mmol/L Carbon Dioxide 35 H (22-30) mmol/L BUN 38 H (9-20) mg/dL Creatinine 1.39 H (0.66-1.25) mg/dL Glucose 259 H (74-99) mg/dL POC Glucose (mg/dL) 258 H (75-99) mg/dL Calcium 8.3 L (8.4-10.2) mg/dL ALT 20 L (21-72) U/L Total Protein 6.0 L (6.3-8.2) g/dL Albumin 3.0 L (3.5-5.0) g/dL 11/10/18 11/10/18 11/11/18 Range/Units 17:14 20:04 05:58 RBC (4.30-5.90) m/uL Hgb (13.0-17.5) gm/dL Hct (39.0-53.0) % MCV (80.0-100.0) fL MCH (25.0-35.0) pg MCHC (31.0-37.0) g/dL RDW (11.5-15.5) % Sodium 134 L (137-145) mmol/L Potassium 3.3 L (3.5-5.1) mmol/L Chloride 89 L (98-107) mmol/L Carbon Dioxide 38 H (22-30) mmol/L BUN 39 H (9-20) mg/dL Creatinine 1.51 H (0.66-1.25) mg/dL Glucose 196 H (74-99) mg/dL POC Glucose (mg/dL) 136 H 200 H (75-99) mg/dL Calcium (8.4-10.2) mg/dL ALT (21-72) U/L Total Protein (6.3-8.2) g/dL Albumin 3.2 L (3.5-5.0) g/dL 11/11/18 11/11/18 Range/Units 05:58 06:22 RBC 4.03 L (4.30-5.90) m/uL Hgb 8.5 L (13.0-17.5) gm/dL Hct 29.0 L (39.0-53.0) % MCV 71.9 L (80.0-100.0) fL MCH 21.2 L (25.0-35.0) pg MCHC 29.4 L (31.0-37.0) g/dL RDW 18.4 H (11.5-15.5) % Sodium (137-145) mmol/L Potassium (3.5-5.1) mmol/L Chloride (98-107) mmol/L Carbon Dioxide (22-30) mmol/L BUN (9-20) mg/dL Creatinine (0.66-1.25) mg/dL Glucose (74-99) mg/dL POC Glucose (mg/dL) 199 H (75-99) mg/dL Calcium (8.4-10.2) mg/dL ALT (21-72) U/L Total Protein (6.3-8.2) g/dL Albumin (3.5-5.0) g/dL
[2018-11-11] MEDS: POTASSIUM CHLORIDE ER 20 MEQ TAB.ER PO SCH (11:06)
[2018-11-11] MEDS: hydrOXYzine HCL 25 MG TAB PO PRN (11:06)
[2018-11-11 11:45] LABS: Glucose,Whole Blood 307 mg/dL (75-99)
[2018-11-11] MEDS: DOXYCYCLINE 100 MG in SODIUM CHLORIDE 0.9% 100 ML IVPB SCH ×2 (14:22→20:30)
[2018-11-11] MEDS: methylPREDNISolone SOD SUCCI 125 MG/2 ML VIAL IV SCH ×4 (14:22→22:44)
[2018-11-11] MEDS ORDERED: INSULIN DETEMIR (LEVEMIR) 100 UNIT/ML SYR SQ ONE (16:00)
--- NOTE | 2018-11-11 16:46 | US ---
EXAMINATION TYPE: US renals and bladder DATE OF EXAM: 11/11/2018 COMPARISON: CT C-spine 2018 CLINICAL HISTORY: osmin. diabetic; prior renal stones per patient EXAM MEASUREMENTS: US exam is technically limited by patient positioning as patient was having uprigh t breathing treatment and renal US simultaneously Right Kidney: 10.0 x 6.2 x 6.0 cm Left Kidney: 11.4 x 5.9 x 6.5 cm Right Kidney: No hydronephrosis or masses seen Left Kidney: No hydronephrosis or masses seen, hyperechoic parallel lines are noted on image #[id number] an d #[id number] and may be calcified vessel berumen; no discreet renal cyst is noted this US and may be due to patient limitations. Bladder: wnl; bowel gas is noted posteriorly Exam suboptimal due to patient's limited mobility as well as portable technique. Visualized kidneys s how no gross hydronephrosis. Bladder is not greatly distended without suspicious mass or wall thicken ing. IMPRESSION: Suboptimal study without hydronephrosis seen bilaterally.
[2018-11-11 16:47] LABS: Glucose,Whole Blood 208 mg/dL (75-99)
[2018-11-11 20:12] LABS: Glucose,Whole Blood 384 mg/dL (75-99)
[2018-11-11] MEDS: MONTELUKAST 10 MG TAB PO SCH (20:30)
[2018-11-11] MEDS: MELATONIN 3 MG TABLET PO SCH (20:31)
[2018-11-11] MEDS: SODIUM CHLORIDE 0.9% 1,000 ML IV SCH (20:41)
[2018-11-11] MEDS ORDERED: INSULIN DETEMIR (LEVEMIR) 100 UNIT/ML SYR SQ SCH (21:00)
[2018-11-12] MEDS: METHADONE 5 MG TAB PO SCH ×3 (04:09→15:59)
[2018-11-12 05:26] LABS: Anisocytosis Slight; Basophils % (A) 0 %; Eosinophils % (A) 1 %; HCT 31.5 % (39.0-53.0); HGB 9.3 gm/dL (13.0-17.5); Hypochromasia Marked; Lymphocytes # (A) 0.5 k/uL (1.0-4.8); Lymphocytes % (A) 12 %; MCH 21.1 pg (25.0-35.0); MCHC 29.5 g/dL (31.0-37.0); MCV 71.6 fL (80.0-100.0); Mean Platelet Volume 7.6; Microcytosis Marked; Monocytes # (A) 0.1 k/uL (0-1.0); Monocytes % (A) 3 %; Neutrophils # (A) 3.6 k/uL (1.3-7.7); Neutrophils % (A) 83 %; Platelet Count 348 k/uL (150-450); Poikilocytosis Moderate; RDW 18.4 % (11.5-15.5); WBC 4.3 k/uL (3.8-10.6)
[2018-11-12 05:34] LABS: Calcium 8.9 mg/dL (8.4-10.2); Potassium 3.3 mmol/L (3.5-5.1)
[2018-11-12 06:10] LABS: Glucose,Whole Blood 438 mg/dL (75-99)
[2018-11-12] MEDS: methylPREDNISolone SOD SUCCI 125 MG/2 ML VIAL IV SCH ×3 (06:20→19:03)
[2018-11-12] MEDS: PANTOPRAZOLE 40 MG TABLET PO SCH ×2 (06:21→15:59)
[2018-11-12] MEDS: INSULIN ASPART (NovoLOG) 100 UNIT/ML VIAL SQ SCH ×3 (06:21→19:02)
[2018-11-12] MEDS: POTASSIUM CHLORIDE ER 20 MEQ TAB.ER PO SCH ×4 (06:50→08:30)
[2018-11-12] MEDS: IPRATROPIUM-ALBUTEROL 3 ML NEB INHALATION SCH ×4 (07:52→19:05)
[2018-11-12] MEDS ORDERED: Potassium Replacement Protocol 1 EACH MISC MISCELLANE PRN (08:13)
[2018-11-12] MEDS: FUROSEMIDE 80 MG TAB PO SCH ×2 (08:26→15:59)
[2018-11-12] MEDS: SENNOSIDES-DOCUSATE SODIUM 1 EACH TAB PO SCH ×2 (08:26→21:13)
[2018-11-12] MEDS: POTASSIUM CHLORIDE ER 10 MEQ TAB.ER.PRT PO SCH (08:27)
[2018-11-12] MEDS: ATORVASTATIN 80 MG TAB PO SCH (08:27)
[2018-11-12] MEDS: MAGNESIUM OXIDE 400 MG TAB PO SCH (08:27)
[2018-11-12] MEDS: METOPROLOL TARTRATE 50 MG TAB PO SCH ×2 (08:27→21:13)
[2018-11-12] MEDS: DOXYCYCLINE 100 MG in SODIUM CHLORIDE 0.9% 100 ML IVPB SCH ×2 (08:28→21:13)
[2018-11-12] MEDS: SERTRALINE 100 MG TAB PO SCH (08:28)
[2018-11-12] MEDS: CYANOCOBALAMIN 500 MCG TAB PO SCH (08:28)
[2018-11-12] MEDS: CYCLOBENZAPRINE 10 MG TAB PO SCH ×3 (08:28→21:09)
[2018-11-12] MEDS: APIXABAN 5 MG TAB PO SCH ×2 (08:28→21:09)
[2018-11-12] MEDS: VIT A,C & E-LUTEIN-MINERALS 1 EACH TAB PO SCH (08:29)
[2018-11-12] MEDS: METOLAZONE 2.5 MG TAB PO SCH (08:29)
[2018-11-12] MEDS: VITAMIN E (DL,TOCOPHERYL ACET) 400 UNIT CAP PO SCH (08:29)
--- NOTE | 2018-11-12 09:04 | P.PN ---
Subjective this is a pleasant 78 yo M with multiple medical problems , who was admitted with hematuria and GI bleed, status post EGD/COlonoscopy showing mild gastritis and colon polyp, removed. he is been seen by urologist as well, his hematuria and GI bleed are resolved now and his Hemoglobin is stable . pt is on protonix . pt course was complicated with NSTEMI , seen by counter control operator who recommend medical management now. pt coumadin was switched to eliquis by cardioligst . he is with a fib. rate controlled. and acute systolic CHF, on bumex 2 mg daily . his creatinine is stable at 1.4 , probably component of mild cardio-renal syndrome pt has been already been discharged by yesterday pending sugar control . however cardiology team recommended to keep the pt one more day for monitoring. sugar is controlled now. repeat labs from today are reviewed and look stable 11/10/2018 Patient is still short of breath with some coughing. No chest pain. His vitals looks stable. Sugar is above 200. No labs from today. Patient has been evalu ated by counter control operator today and Lasix 80 mg was added today. Biopsy results from his EGD/colonoscopy came back showing benign abnormalities like mild gastritis, tubular adenoma and inflammatory/hyperplastic polyps. We going to repeat chest x-ray. Check labs. 11/11/2018 Today patient is awake and alert with no chest pain. History of have some dyspnea and tachypnea although it's a little bit better compared to yesterday. This covered with green phlegm. And decreased air entry on chest examination with scattered expiratory wheezing. He is making good urine output. His creatinine went up slightly to 1.5 today. Low potassium was been replaced. Patient states that he has history of COPD but is not sure if he sees a traffic control flagger outside. He started smoking at age 17 and he quit about 30 years ago. Patient symptoms and his clinical course is suggestive of acute COPD exacerbation so we'll start him today on steroids and antibiotics, continue with his breathing treatment. His chest x-ray from yesterday showing atelectasis versus pneumonia however patient has no fever and no white cell count. 11/12/2018 Patient still dyspneic with cough and phlegm. No chest pain. His chest exam showing a still wheezing however his air entry is better than yesterday. Vital signs stable and he is saturating 93% on room air. Labs from today showing WBC 4.3K, hemoglobin stable at 9.3, platelet 348. Sodium 134, potassium 3.3 and creatinine stable at 1.53. Sugar was trending high more than 304 100, continue with insulin sliding scale and increase Levemir 35 units at bedtime. Renal ult rasound showing no hydronephrosis. Cardiology team are following the patient and they're ordering Lasix for his fluid management. Objective - Vital Signs Vital signs: Vital Signs Temp 97.9 F 11/12/18 04:00 Pulse 88 11/12/18 08:02 Resp 17 11/12/18 04:00 BP 130/69 11/12/18 04:00 Pulse Ox 95 11/12/18 04:00 Intake & Output 11/11/18 11/12/18 11/12/18 18:59 06:59 18:59 Intake Total 702 236 Output Total 2600 Balance 702 -2600 236 Intake: Oral 702 236 Output: Urine 2600 Other: Voiding Method Urinal Urinal # Bowel Movements 0 1 - Exam GENERAL: The patient is alert and oriented x3, not in any acute distress. Well developed, well nourished. HEENT: Pupils are round and equally reacting to light. EOMI. No scleral icterus. No conjunctival pallor. Normocephalic, atraumatic. No pharyngeal erythema. No thyromegaly. CARDIOVASCULAR: S1 and S2 present. No murmurs, rubs, or gallops. -PULMONARY: Chest is clear to auscultation, no crackles. mild tachypnea at rest. Scattered wheezing with better air entry on both sides. Prolonged expiratory phase ABDOMEN: Soft, nontender, nondistended, normoactive bowel sounds. No palpable organomegaly. MUSCULOSKELETAL: No joint swelling or deformity. -EXTREMITIES: No cyanosis, clubbing, . mild leg edema . NEUROLOGICAL: Gross neurological examination did not reveal any focal deficits. SKIN: No rashes. - Labs CBC & Chem 7: 11/12/18 04:56 11/12/18 04:56 Labs: Abnormal Lab Results - Last 24 Hours (Table) 11/11/18 11/11/18 11/11/18 Range/Units 11:41 16:45 20:10 Hgb (13.0-17.5) gm/dL Hct (39.0-53.0) % MCV (80.0-100.0) fL MCH (25.0-35.0) pg MCHC (31.0-37.0) g/dL RDW (11.5-15.5) % Lymphocytes # (1.0-4.8) k/uL Sodium (137-145) mmol/L Potassium (3.5-5.1) mmol/L Chloride (98-107) mmol/L Carbon Dioxide (22-30) mmol/L BUN (9-20) mg/dL Creatinine (0.66-1.25) mg/dL Glucose (74-99) mg/dL POC Glucose (mg/dL) 307 H 208 H 384 H (75-99) mg/dL 11/12/18 11/12/18 11/12/18 Range/Units 04:56 04:56 06:08 Hgb 9.3 L (13.0-17.5) gm/dL Hct 31.5 L (39.0-53.0) % MCV 71.6 L (80.0-100.0) fL MCH 21.1 L (25.0-35.0) pg MCHC 29.5 L (31.0-37.0) g/dL RDW 18.4 H (11.5-15.5) % Lymphocytes # 0.5 L (1.0-4.8) k/uL Sodium 134 L (137-145) mmol/L Potassium 3.3 L (3.5-5.1) mmol/L Chloride 87 L (98-107) mmol/L Carbon Dioxide 36 H (22-30) mmol/L BUN 49 H (9-20) mg/dL Creatinine 1.53 H (0.66-1.25) mg/dL Glucose 426 H (74-99) mg/dL POC Glucose (mg/dL) 438 H (75-99) mg/dL Assessment and Plan Assessment: -acute COPD exacerbation -hematuria and GI bleed, status post EGD/COlonoscopy showing mild gastritis and colon polyp, removed. -NSTEMI -Diabetes mellitus with hyperglycemia -a fib. rate controlled -acute systolic CHF, improved -mild acute kidney injury related to cardio-renal syndrome. -mild hyponatremia , improving Plan: keep monitoring pt . monitor vitals and sugar. follow up with cardiology team tomorrow about plan of care. continue with Lasix as per cardiology recommendation. Continue with Solu-Medrol on doxycycline. Follow-up creatinine level and electrolytes.Labs and medication were reviewed.. Continue same treatment. Continue with symptomatic treatment. Resume home medication. Monitor lytes and vitals. DVT and GI prophylaxis. Further recommendations of the clinical course of the patient DVT prophylaxis: Eliquis GI Prophylaxis: Protonix Prognosis is guarded
--- NOTE | 2018-11-12 10:00 | XR ---
EXAMINATION TYPE: XR chest 1V DATE OF EXAM: 11/12/2018 CLINICAL HISTORY: Difficulty breathing progress study. TECHNIQUE: Single AP portable upright view of the chest is obtained. COMPARISON: Chest x-ray from 2 days earlier and older studies. FINDINGS: Background cardiomegaly is again seen. Improved inspiration on current study. Background c hronic parenchymal change redemonstrated. Persistent left basilar opacity. Improved aeration right noel ng base. New lateral left lung masslike density. No pleural effusion or pneumothorax is noted bilater ally. Osseous structures are intact. IMPRESSION: Background chronic parenchymal changes and cardiomegaly redemonstrated. Improved aeration right lung base. Persistent left basilar atelectasis and/or infiltrate. Lateral left mid lung pneumonic infiltrate. Progress study advised.
[2018-11-12 11:53] LABS: Glucose,Whole Blood 444 mg/dL (75-99)
--- NOTE | 2018-11-12 11:55 | P.PN ---
Subjective Progress Note Date: 11/12/18 This is a pleasant 78-year-old male past medical history significant for chronic systolic heart failure, coronary artery disease, ischemic cardiomyopathy, chronic persistent atrial fibrillation and COPD. He follows in the office with Dr. Gardner. Echocardiogram obtained on this admission reveals impaired LV systolic function with ejection fraction 30-35%, moderately dilated left atrium, moderate pulmonary hypertension with an RVSP of 48 mmHg and a dilated aortic root 3.9 cm. minutes to the hospital with congestive heart failure, patient is morning and overall feeling significantly better. Blood pressure 130/60 with a heart rate in the 80s, 92% on room air. White blood cell count 4.3, hemoglobin 9.3, platelet count 348. Sodium 134, potassium 3.3, BUN 49 and creatinine 1.5. Objective - Vital Signs Vital signs: Vital Signs Temp 96.8 F L 11/12/18 08:00 Pulse 88 11/12/18 11:47 Resp 16 11/12/18 11:36 BP 130/62 11/12/18 08:00 Pulse Ox 92 L 11/12/18 08:00 Intake & Output 11/11/18 11/12/18 11/12/18 18:59 06:59 18:59 Intake Total 702 236 Output Total 2600 Balance 702 -2600 236 Intake: Oral 702 236 Output: Urine 2600 Other: Voiding Method Urinal Urinal Urinal # Bowel Movements 0 1 - Exam GENERAL: Well-appearing, well-nourished and in no acute distress. NECK: Supple without JVD or thyromegaly. LUNGS: Scattered rhonchi, bibasilar rales and faint expiratory wheezes noted. HEART: Irregular rate and rhythm without murmurs, rubs or gallops. S1 and S2 heard. EXTREMITIES: Normal range of motion, trace edema. No clubbing or cyanosis. Peripheral pulses intact. - Labs CBC & Chem 7: 11/12/18 04:56 11/12/18 04:56 Labs: Abnormal Lab Results - Last 24 Hours (Table) 11/11/18 11/11/18 11/12/18 Range/Units 16:45 20:10 04:56 Hgb (13.0-17.5) gm/dL Hct (39.0-53.0) % MCV (80.0-100.0) fL MCH (25.0-35.0) pg MCHC (31.0-37.0) g/dL RDW (11.5-15.5) % Lymphocytes # (1.0-4.8) k/uL Sodium 134 L (137-145) mmol/L Potassium 3.3 L (3.5-5.1) mmol/L Chloride 87 L (98-107) mmol/L Carbon Dioxide 36 H (22-30) mmol/L BUN 49 H (9-20) mg/dL Creatinine 1.53 H (0.66-1.25) mg/dL Glucose 426 H (74-99) mg/dL POC Glucose (mg/dL) 208 H 384 H (75-99) mg/dL 11/12/18 11/12/18 Range/Units 04:56 06:08 Hgb 9.3 L (13.0-17.5) gm/dL Hct 31.5 L (39.0-53.0) % MCV 71.6 L (80.0-100.0) fL MCH 21.1 L (25.0-35.0) pg MCHC 29.5 L (31.0-37.0) g/dL RDW 18.4 H (11.5-15.5) % Lymphocytes # 0.5 L (1.0-4.8) k/uL Sodium (137-145) mmol/L Potassium (3.5-5.1) mmol/L Chloride (98-107) mmol/L Carbon Dioxide (22-30) mmol/L BUN (9-20) mg/dL Creatinine (0.66-1.25) mg/dL Glucose (74-99) mg/dL POC Glucose (mg/dL) 438 H (75-99) mg/dL Assessment and Plan Plan: ASSESSMENT and plan #1 Acute on chronic systolic heart failure #2 Ischemic cardiomyopathy, ejection fraction 30-35% #3 COPD #4 Acute kidney injury #5Chronic persistent atrial fibrillation on long-term anticoagulation with controlled ventricular response #6 Dyslipidemia #7Hypertension Plan From cardiology's perspective, we will continue this patient on his current medications, he may be able to be discharged once cleared by primary. From cardiology's perspective, patient may be able to be discharged whenever cleared by primary.
[2018-11-12] MEDS: hydrOXYzine HCL 25 MG TAB PO PRN ×2 (12:08→21:09)
[2018-11-12 16:51] LABS: Glucose,Whole Blood 403 mg/dL (75-99)
[2018-11-12] MEDS ORDERED: INSULIN REGULAR BOLUS (FROM DRIP BAG) IV ONE (17:02)
[2018-11-12] MEDS ORDERED: INSULIN REGULAR 100 UNIT in SODIUM CHLORIDE 0.9% 100 ML IV SCH (17:15)
[2018-11-12 17:41] LABS: Glucose,Whole Blood 469 mg/dL (75-99)
[2018-11-12 18:24] LABS: Glucose,Whole Blood 469 mg/dL (75-99)
[2018-11-12 18:57] LABS: Glucose,Whole Blood 438 mg/dL (75-99)
[2018-11-12] MEDS ORDERED: predniSONE 10 MG TAB PO STA (19:21)
[2018-11-12 19:24] LABS: Glucose,Whole Blood 351 mg/dL (75-99)
[2018-11-12 19:56] LABS: Glucose,Whole Blood 268 mg/dL (75-99)
[2018-11-12 20:00] VITALS: RESP 18
[2018-11-12 20:24] LABS: Glucose,Whole Blood 233 mg/dL (75-99)
[2018-11-12] MEDS ORDERED: methylPREDNISolone SOD SUCCI 40 MG/ML 1 ML VIAL IV SCH (21:00)
[2018-11-12] MEDS ORDERED: INSULIN DETEMIR (LEVEMIR) 100 UNIT/ML SYR SQ SCH ×2 (21:00)
[2018-11-12] MEDS: MONTELUKAST 10 MG TAB PO SCH (21:13)
[2018-11-12] MEDS: MELATONIN 3 MG TABLET PO SCH (21:14)
[2018-11-12 21:29] LABS: Glucose,Whole Blood 139 mg/dL (75-99)
[2018-11-12 23:11] LABS: Glucose,Whole Blood 159 mg/dL (75-99)
[2018-11-13 02:01] LABS: Glucose,Whole Blood 279 mg/dL (75-99)
[2018-11-13 06:16] LABS: Calcium 8.7 mg/dL (8.4-10.2); Potassium 3.2 mmol/L (3.5-5.1)
[2018-11-13 06:34] LABS: Glucose,Whole Blood 258 mg/dL (75-99)
[2018-11-13] MEDS: METHADONE 5 MG TAB PO SCH ×2 (06:34→08:33)
[2018-11-13] MEDS: PANTOPRAZOLE 40 MG TABLET PO SCH (06:54)
[2018-11-13] MEDS: INSULIN ASPART (NovoLOG) 100 UNIT/ML VIAL SQ SCH ×2 (06:54→12:26)
[2018-11-13] MEDS: SODIUM CHLORIDE 0.9% 1,000 ML IV SCH (06:54)
[2018-11-13] MEDS: IPRATROPIUM-ALBUTEROL 3 ML NEB INHALATION SCH ×2 (07:27→10:50)
[2018-11-13] MEDS: CYANOCOBALAMIN 500 MCG TAB PO SCH (08:33)
[2018-11-13] MEDS: MAGNESIUM OXIDE 400 MG TAB PO SCH (08:33)
[2018-11-13] MEDS: SENNOSIDES-DOCUSATE SODIUM 1 EACH TAB PO SCH (08:33)
[2018-11-13] MEDS: APIXABAN 5 MG TAB PO SCH (08:33)
[2018-11-13] MEDS: CYCLOBENZAPRINE 10 MG TAB PO SCH (08:33)
[2018-11-13] MEDS: SERTRALINE 100 MG TAB PO SCH (08:33)
[2018-11-13] MEDS: VIT A,C & E-LUTEIN-MINERALS 1 EACH TAB PO SCH (08:34)
[2018-11-13] MEDS: VITAMIN E (DL,TOCOPHERYL ACET) 400 UNIT CAP PO SCH (08:34)
[2018-11-13] MEDS: ATORVASTATIN 80 MG TAB PO SCH (08:34)
[2018-11-13] MEDS: METOPROLOL TARTRATE 50 MG TAB PO SCH (08:34)
[2018-11-13] MEDS: FUROSEMIDE 80 MG TAB PO SCH (08:34)
[2018-11-13] MEDS: DOXYCYCLINE 100 MG in SODIUM CHLORIDE 0.9% 100 ML IVPB SCH (08:34)
[2018-11-13] MEDS ORDERED: predniSONE 20 MG TAB PO SCH (09:00)
[2018-11-13] MEDS ORDERED: POTASSIUM CHLORIDE ER 20 MEQ TAB.ER PO SCH (09:00)
[2018-11-13 11:13] VITALS: BMI 33.5
[2018-11-13 11:29] VITALS: BP 127/80; PULSE 83; TEMP 98.2
[2018-11-13 11:49] LABS: Glucose,Whole Blood 266 mg/dL (75-99)
--- NOTE | 2018-11-13 14:06 | P.PN ---
Subjective Progress Note Date: 11/13/18 This is a pleasant 78-year-old male past medical history significant for chronic systolic heart failure, coronary artery disease, ischemic cardiomyopathy, chronic persistent atrial fibrillation and COPD. He follows in the office with Dr. Gardner. Echocardiogram obtained on this admission reveals impaired LV systolic function with ejection fraction 30-35%, moderately dilated left atrium, moderate pulmonary hypertension with an RVSP of 48 mmHg and a dilated aortic root 3.9 cm. minutes to the hospital with congestive heart failure, patient is morning and overall feeling significantly better. Blood pressure 130/60 with a heart rate in the 80s, 92% on room air. White blood cell count 4.3, hemoglobin 9.3, platelet count 348. Sodium 134, potassium 3.3, BUN 49 and creatinine 1.5. 11/13/2018 Patient was seen and examined today, feeling significantly better overall. Breathing is stable. From our perspective he may be able to be discharged home today on 80 mg of Lasix by mouth twice a day we will discontinue the Zaroxolyn, increase the potassium to 20 mEq daily. Blood pressure today 126/80 with a heart rate in the 80s, 94% on room air. Objective - Vital Signs Vital signs: Vital Signs Temp 98.2 F 11/13/18 11:28 Pulse 83 11/13/18 11:28 Resp 18 11/13/18 11:28 BP 127/80 11/13/18 11:28 Pulse Ox 94 L 11/13/18 11:28 Intake & Output 11/12/18 11/13/18 11/13/18 18:59 06:59 18:59 Intake Total 698 60.6 120 Output Total 400 400 Balance 298 -339.4 120 Weight 115.1 kg 115.1 kg Intake: Intake, IV Titration 60.6 Amount Insulin Regular 100 unit 60.6 In Sodium Chloride 0.9% 100 ml @ Titrate IV .Q0M [facility] Rx#:[id number] Oral 698 120 Output: Urine 400 400 Other: Voiding Method Urinal Urinal # Voids 1 # Bowel Movements 1 - Exam GENERAL: Well-appearing, well-nourished and in no acute distress. NECK: Supple without JVD or thyromegaly. LUNGS: Scattered rhonchi, bibasilar rales and faint expiratory wheezes noted. HEART: Irregular rate and rhythm without murmurs, rubs or gallops. S1 and S2 heard. EXTREMITIES: Normal range of motion, trace edema. No clubbing or cyanosis. Peripheral pulses intact. - Labs CBC & Chem 7: 11/12/18 04:56 11/13/18 04:59 Labs: Abnormal Lab Results - Last 24 Hours (Table) 11/12/18 11/12/18 11/12/18 Range/Units 16:50 17:40 18:22 Sodium (137-145) mmol/L Potassium (3.5-5.1) mmol/L Chloride (98-107) mmol/L Carbon Dioxide (22-30) mmol/L BUN (9-20) mg/dL Creatinine (0.66-1.25) mg/dL Glucose (74-99) mg/dL POC Glucose (mg/dL) 403 H 469 H 469 H (75-99) mg/dL 11/12/18 11/12/18 11/12/18 Range/Units 18:55 19:23 19:55 Sodium (137-145) mmol/L Potassium (3.5-5.1) mmol/L Chloride (98-107) mmol/L Carbon Dioxide (22-30) mmol/L BUN (9-20) mg/dL Creatinine (0.66-1.25) mg/dL Glucose (74-99) mg/dL POC Glucose (mg/dL) 438 H 351 H 268 H (75-99) mg/dL 11/12/18 11/12/18 11/12/18 Range/Units 20:22 21:28 23:09 Sodium (137-145) mmol/L Potassium (3.5-5.1) mmol/L Chloride (98-107) mmol/L Carbon Dioxide (22-30) mmol/L BUN (9-20) mg/dL Creatinine (0.66-1.25) mg/dL Glucose (74-99) mg/dL POC Glucose (mg/dL) 233 H 139 H 159 H (75-99) mg/dL 11/13/18 11/13/18 11/13/18 Range/Units 02:00 04:59 06:33 Sodium 134 L (137-145) mmol/L Potassium 3.2 L (3.5-5.1) mmol/L Chloride 85 L (98-107) mmol/L Carbon Dioxide 37 H (22-30) mmol/L BUN 59 H (9-20) mg/dL Creatinine 1.54 H (0.66-1.25) mg/dL Glucose 238 H (74-99) mg/dL POC Glucose (mg/dL) 279 H 258 H (75-99) mg/dL 11/13/18 Range/Units 11:47 Sodium (137-145) mmol/L Potassium (3.5-5.1) mmol/L Chloride (98-107) mmol/L Carbon Dioxide (22-30) mmol/L BUN (9-20) mg/dL Creatinine (0.66-1.25) mg/dL Glucose (74-99) mg/dL POC Glucose (mg/dL) 266 H (75-99) mg/dL Assessment and Plan Plan: ASSESSMENT and plan #1 Acute on chronic systolic heart failure #2 Ischemic cardiomyopathy, ejection fraction 30-35% #3 COPD #4 Acute kidney injury #5Chronic persistent atrial fibrillation on long-term anticoagulation with controlled ventricular response #6 Dyslipidemia #7Hypertension Plan From cardiology's perspective, patient may be able to be discharged home today from our perspective, we will continue the Lasix 80 mg by mouth twice a day, discontinue the Zaroxolyn, and increase the potassium to 20 mg once daily. A follow-up appointment will be made in the office post discharge. DNP note has been reviewed, I agree with a documented findings and plan of care. Patient was seen and examined.
--- NOTE | 2018-11-13 22:02 | P.DS ---
Providers Date of admission: 10/31/18 14:17 Attending physician: Ephraim Underwood Consults: 10/31/18 14:17 Consult Physician Urgent Consulting Provider: Hilton Garcia Consult Reason/Comments: elev trop Do you want consulting provider notified?: Yes 11/01/18 13:59 Consult Physician Routine Consulting Provider: Ej Ovalle Consult Reason/Comments: coty hematuria prior to admission Do you want consulting provider notified?: Yes Primary care physician: [facility] Hospital Course: Diagnoses: -acute COPD exacerbation -hematuria and GI bleed, status post EGD/COlonoscopy showing mild gastritis and colon polyp, removed. -NSTEMI -Diabetes mellitus with hyperglycemia -a fib. rate controlled -acute systolic CHF, improved -mild acute kidney injury related to cardio-renal syndrome. -Chronic kidney disease, stage II to III, related to diabetic nephropathy -mild hyponatremia , improving Hospital course: this is a pleasant 78 yo M with multiple medical problems , who was admitted with hematuria and GI bleed, status post EGD/COlonoscopy showing mild gastritis and colon polyp, removed. Bx:Inflammatory/hyperplastic polyp. he is been seen by urologist as well, his hematuria and GI bleed are resolved now and his Hemoglobin is stable . pt is on protonix . pt course was complicated with NSTEMI , seen by aquaculture worker who recommend medical management now. pt coumadin was swi tched to eliquis by cardioligst . he is with a fib. rate controlled. and acute systolic CHF, bumex 2 mg daily was changed to oral Lasix80 mg BID prior to discharge and he tolerated that well. his creatinine is stable at 1.4-1.5 , probably component of mild cardio-renal syndrome . prior to discharge patient was wheezing and coughing with phlegm. He was diagnosed with acute COPD exacerbation and he was treated with short course of IV Solu-Medrol and antibiotics doxycycline, patient showed interval improvement and his dyspnea is significantly improved. He has some elements of exertional dyspnea over that is improving as well. No chest pain upon discharge. Patient will be discharged on tapering dose of steroids. resume his insulin regimen and victoza at home . Sugar is better controlled. Patient was instructed to check his glucose 4 times a day and at bedtime and keep it in a log book and to bring it to his doctor. Patient was instructed if sugar less than 70 or more than 400 call 911 on come to emergency room, he verbalized understanding and acceptance. Problems and management plan were discussed with the patient and he verbalized understanding and acceptance Patient was found stable and can be discharged home however he needs follow-up as an outpatient. pt agrees with appointment made for him and their timing with pcp , cardiology and GI and states he will follow up Gen: patient is a AAOx3, no distress CVS: S1-S2, RRR, no murmur Lungs: B/L CTA, no wheezing Abdomen: soft, no distention, no tenderness, positive bowel sounds Extremity: no leg edema or induration Time spent more than 35 minutes Patient Condition at Discharge: Stable Plan - Discharge Summary Discharge Rx Participant: Yes New Discharge Prescriptions: New Apixaban [Eliquis] 5 mg PO BID #60 tab Atorvastatin [Lipitor] 80 mg PO DAILY #30 tab Metoprolol Tartrate [Lopressor] 50 mg PO BID #60 tab Sennosides-Docusate Sodium [Senokot-S] 2 each PO BID #60 tab Melatonin 3 mg PO HS tablet Potassium Chloride ER [K-Dur 20] 20 meq PO DAILY #30 tab Furosemide [Lasix] 80 mg PO BID@0900,1600 #60 tablet predniSONE 10 mg PO DIRECTED #30 tab Doxycycline [Vibramycin] 100 mg PO BID 3 Days #5 capsule Continue Triamcinolone 0.1% Cream [Kenalog 0.1% Cream] 1 applic TOPICAL BID PRN PRN Reason: Itching Methadone [Dolophine] 5 mg PO Q8H #9 tab Omeprazole [PriLOSEC] 20 mg PO AC-BID@08,16 Magnesium Oxide [Mag-Ox] 250 mg PO DAILY Vitamin E 100 unit PO DAILY@1200 Liraglutide [Victoza 2-Garry] 0.6 mg SQ DAILY Sertraline [Zoloft] 100 mg PO DAILY Nitroglycerin Sl Tabs [Nitrostat] 0.4 mg SUBLINGUAL Q5M PRN PRN Reason: Chest Pain Montelukast [Singulair] 10 mg PO HS Ipratropium-Albuterol Nebulize [Duoneb 0.5 mg-3 mg/3 ml Soln] 3 ml INHALATION RT-TID PRN PRN Reason: Shortness Of Breath hydrOXYzine HCL [Atarax] 25 mg PO TID PRN PRN Reason: Itching Fluticasone Nasal [place] [Flonase Nasal [place]] 2 spr EA NOSTRIL DAILY PRN PRN Reason: Allergy Symptoms Eye Vitamin 1 tab PO DAILY Diclofenac Sodium [Voltaren Gel] 2 gram TOPICAL QID Cyclobenzaprine [Flexeril] 10 mg PO TID Cyanocobalamin (Vitamin B-12) [Vitamin B-12] 1,000 mcg PO DAILY@1200 Changed Aspirin EC [Ecotrin Low Dose] 81 mg PO HS #0 Insulin Glargine,Hum.rec.anlog [Toujeo Solostar] 36 units SQ DAILY #0 Discontinued Furosemide [Lasix] 80 mg PO DAILY Metoprolol Tartrate [Lopressor] 100 mg PO BID@0800,1600 Warfarin [Coumadin] 5 mg PO HS Potassium Chloride ER [K-Dur 10] 10 meq PO DAILY Insulin Glargine,Hum.rec.anlog [Toujeo Solostar] 50 units SQ DAILY Metolazone [Zaroxolyn] 2.5 mg PO DAILY PRN PRN Reason: Edema Discharge Medication List Triamcinolone 0.1% Cream [Kenalog 0.1% Cream] 1 applic TOPICAL BID PRN 07/08/17 [History] Methadone [Dolophine] 5 mg PO Q8H #9 tab 09/13/17 [Rx] Omeprazole [PriLOSEC] 20 mg PO AC-BID@08,16 09/20/17 [History] Cyanocobalamin (Vitamin B-12) [Vitamin B-12] 1,000 mcg PO DAILY@1200 10/31/18 [History] Cyclobenzaprine [Flexeril] 10 mg PO TID 10/31/18 [History] Diclofenac Sodium [Voltaren Gel] 2 gram TOPICAL QID 10/31/18 [History] Eye Vitamin 1 tab PO DAILY 10/31/18 [History] Fluticasone Nasal [place] [Flonase Nasal [place]] 2 spr EA NOSTRIL DAILY PRN 10/31/18 [History] Ipratropium-Albuterol Nebulize [Duoneb 0.5 mg-3 mg/3 ml Soln] 3 ml INHALATION RT-TID PRN 10/31/18 [History] Liraglutide [Victoza 2-Garry] 0.6 mg SQ DAILY 10/31/18 [History] Magnesium Oxide [Mag-Ox] 250 mg PO DAILY 10/31/18 [History] Montelukast [Singulair] 10 mg PO HS 10/31/18 [History] Nitroglycerin Sl Tabs [Nitrostat] 0.4 mg SUBLINGUAL Q5M PRN 10/31/18 [History] Sertraline [Zoloft] 100 mg PO DAILY 10/31/18 [History] Vitamin E 100 unit PO DAILY@1200 10/31/18 [History] hydrOXYzine HCL [Atarax] 25 mg PO TID PRN 10/31/18 [History] Apixaban [Eliquis] 5 mg PO BID #60 tab 11/08/18 [Rx] Aspirin EC [Ecotrin Low Dose] 81 mg PO HS #0 11/08/18 [Rx] Atorvastatin [Lipitor] 80 mg PO DAILY #30 tab 11/08/18 [Rx] Insulin Glargine,Hum.rec.anlog [Toujeo Solostar] 36 units SQ DAILY #0 11/08/18 [Rx] Melatonin 3 mg PO HS tablet 11/08/18 [Rx] Metoprolol Tartrate [Lopressor] 50 mg PO BID #60 tab 11/08/18 [Rx] Sennosides-Docusate Sodium [Senokot-S] 2 each PO BID #60 tab 11/08/18 [Rx] Doxycycline [Vibramycin] 100 mg PO BID 3 Days #5 capsule 11/13/18 [Rx] Furosemide [Lasix] 80 mg PO BID@0900,1600 #60 tablet 11/13/18 [Rx] Potassium Chloride ER [K-Dur 20] 20 meq PO DAILY #30 tab 11/13/18 [Rx] predniSONE 10 mg PO DIRECTED #30 tab 11/13/18 [Rx] Follow up Appointment(s)/Referral(s): Aruna Gardner MD [STAFF PHYSICIAN] - 11/19/18 10:30 am [facility], [NON-STAFF] - 1 Week Yosvany Escalona MD [Primary Care Provider] - 11/16/18 4:00 pm (Remember to talk to Dr. Escalona about pain management - methadone) Bill Freeman MD [STAFF PHYSICIAN] - 11/27/18 3:30 pm Ambulatory/Diagnostic Orders: Basic Metabolic Panel [LAB.AMB] Time Frame: 5 Days, Location: None Selected Basic Metabolic Panel [LAB.AMB] Time Frame: 3 Days, Location: None Selected Patient Instructions/Handouts: Iron Rich Diet (ED), Anemia (DC) Activity/Diet/Wound Care/Special Instructions: BMP on Monday, November [address] Escalona's appointment to recheck hemaglobin and potassium, ask about methadone refill. Patient is to check blood sugars four times daily before each meal and at bedtime. If blood sugar is less than 70 or more than 350 please call 911 or report to the nearest emergency department. Please keep a log of all blood sugars for the primary care provider follow up and keep scheduled appointment. Continue current diabetic diet. Repeat labs in 5 days. Josep copay $38.50 Bumex prescriptions cancelled Discharge Disposition: HOME WITH HOME HEALTH SERVICES
== END 2018-11-13 13:19 | disposition home health service (06) | DRG 377 ==
LOC: EC 11:33 → 3SCARD 14:17 → 2SICU 15:35 → 3SCARD 11-08 13:14
PROVIDERS: ADMIT Hospitalist; ATTEND Hospitalist
PROC: 30230N1 Transfusion of Nonautologous Red Blood Cells into Peripheral Vein, Open Approach (ICD-10-PCS; 2018-11-01)
PROC: 0DBP8ZZ Excision of Rectum, Via Natural or Artificial Opening Endoscopic (ICD-10-PCS; 2018-11-05)
PROC: 0DB98ZX Excision of Duodenum, Via Natural or Artificial Opening Endoscopic, Diagnostic (ICD-10-PCS; 2018-11-05)
PROC: 0DB78ZX Excision of Stomach, Pylorus, Via Natural or Artificial Opening Endoscopic, Diagnostic (ICD-10-PCS; 2018-11-05)
PROC: 0DBM8ZZ Excision of Descending Colon, Via Natural or Artificial Opening Endoscopic (ICD-10-PCS; principal; 2018-11-05 08:05)
PROC: 0DBL8ZZ Excision of Transverse Colon, Via Natural or Artificial Opening Endoscopic (ICD-10-PCS; 2018-11-05 08:05)
DX: K29.71 Gastritis, unspecified, with bleeding (principal); I50.23 Acute on chronic systolic (congestive) heart failure; I21.4 Non-ST elevation (NSTEMI) myocardial infarction; D62 Acute posthemorrhagic anemia; E87.1 Hypo-osmolality and hyponatremia; I13.0 Hypertensive heart and chronic kidney disease with heart failure and stage 1 through stage 4 chronic kidney disease, or unspecified chronic kidney disease; I48.92 Unspecified atrial flutter; J44.1 Chronic obstructive pulmonary disease with (acute) exacerbation; N17.9 Acute kidney failure, unspecified; N39.0 Urinary tract infection, site not specified; I69.951 Hemiplegia and hemiparesis following unspecified cerebrovascular disease affecting right dominant side; I95.9 Hypotension, unspecified; I48.2 Chronic atrial fibrillation; E11.22 Type 2 diabetes mellitus with diabetic chronic kidney disease; E11.42 Type 2 diabetes mellitus with diabetic polyneuropathy; E11.649 Type 2 diabetes mellitus with hypoglycemia without coma; E11.65 Type 2 diabetes mellitus with hyperglycemia; I27.20 Pulmonary hypertension, unspecified; I25.5 Ischemic cardiomyopathy; R13.10 Dysphagia, unspecified; J20.9 Acute bronchitis, unspecified; R06.03 Acute respiratory distress; N18.3 Chronic kidney disease, stage 3 (moderate); R31.0 Gross hematuria; E78.5 Hyperlipidemia, unspecified; F32.9 Major depressive disorder, single episode, unspecified; F41.9 Anxiety disorder, unspecified; H40.9 Unspecified glaucoma; I25.10 Atherosclerotic heart disease of native coronary artery without angina pectoris; K21.9 Gastro-esophageal reflux disease without esophagitis; K22.8 Other specified diseases of esophagus; D12.8 Benign neoplasm of rectum; D12.4 Benign neoplasm of descending colon; D12.3 Benign neoplasm of transverse colon; K44.9 Diaphragmatic hernia without obstruction or gangrene; K57.30 Diverticulosis of large intestine without perforation or abscess without bleeding; M79.7 Fibromyalgia; N40.0 Benign prostatic hyperplasia without lower urinary tract symptoms; G47.00 Insomnia, unspecified; G89.29 Other chronic pain; M19.90 Unspecified osteoarthritis, unspecified site; M51.26 Other intervertebral disc displacement, lumbar region; R26.9 Unspecified abnormalities of gait and mobility; K29.70 Gastritis, unspecified, without bleeding; E66.9 Obesity, unspecified; Z79.01 Long term (current) use of anticoagulants; Z79.4 Long term (current) use of insulin; Z79.899 Other long term (current) drug therapy; Z79.82 Long term (current) use of aspirin; Z68.33 Body mass index [BMI] 33.0-33.9, adult; Z95.5 Presence of coronary angioplasty implant and graft; Z87.891 Personal history of nicotine dependence; Z86.010 Personal history of colon polyps; Z74.01 Bed confinement status; Z88.2 Allergy status to sulfonamides; Z87.01 Personal history of pneumonia (recurrent); Z90.79 Acquired absence of other genital organ(s); Z80.42 Family history of malignant neoplasm of prostate
CPT/HCPCS: 36415; 43239; 45380; 71045; 71046; 76770; 80048; 80053; 80061; 81001; 82550; 82728; 83540; 83550; 83605; 83735; 83880; 84100; 84132; 84484; 85025; 85027; 85045; 85610; 85730; 86850; 86900; 86901; 86920; 87086; 88305; 93005; 93306; 94640; 94760; 96361; 96365; 96366; 96375; 99291

== ENCOUNTER → 2019-08-16 | Outpatient (CLI) | payer MEDICARE, BC ==
[2019-08-16 18:30] LABS: African American GFR (CKD) 67.2 (60.0-200.0); Anion Gap 9.4 mmol/L (4.00-12.00); BUN/Creat Ratio 35.83 Ratio (12.00-20.00); Calcium 9.3 mg/dL (8.7-10.3); Carbon Dioxide 39.6 mmol/L (21.6-31.8); Magnesium 1.9 mg/dL (1.5-2.4); Potassium 3.2 mmol/L (3.5-5.5)
== END | disposition home or self-care (01) ==
LOC: LABWHC1 12:42
PROVIDERS: ATTEND Nurse Practitioner
DX: E87.6 Hypokalemia (principal); E44.0 Moderate protein-calorie malnutrition
CPT/HCPCS: 36415; 80048; 83735

== ENCOUNTER 2019-08-26 06:30 | Inpatient (IN) | payer MEDICARE, BC ==
[~2019-08-26 06:30] MED LIST changes: +ALPRAZolam 0.25 MG TAB PO PRN; +ALPRAZolam 0.5 MG TAB PO PRN; -BACITRACIN 50,000 UNIT, POLYMYXIN B 500,000 UNIT in SODIUM CHLORIDE 0.9% IRRIGATIO 1,00... IRRIGATION ONE; -DEXAMETHASONE SOD PHOSPHATE 10 MG/ML 1 ML VIAL IV ONE; -LIDOCAINE 1% 20 ML VIAL (10MG/ML) FOR IV START INTRADERMA PRN; -MIDAZOLAM 2 MG/2 ML VIAL IV PRN; +NITROGLYCERIN SL TABS 0.4 MG TAB SUBLINGUAL PRN; -ONDANSETRON 4 MG/2 ML VIAL IVP ONE; -SCOPOLAMINE 1.5MG/72HR PATCH TRANSDERM ONE; +SODIUM CHLORIDE 0.9% 1,000 ML in EMPTY BAG 1 BAG IV ONE; -ceFAZolin 2 GM in SODIUM CHLORIDE 0.9% 100 ML IVPB ONE
[2019-08-26] MEDS ORDERED: ASPIRIN 325 MG TAB PO ONE (07:00)
[2019-08-26] MEDS ORDERED: SODIUM CHLORIDE 0.9% 1,000 ML IV ONE (07:05)
[2019-08-26 07:10] LABS: Glucose,Whole Blood 112 mg/dL (75-99)
[2019-08-26 07:18] LABS: Basophils # (A) 0.1 k/uL (0-0.2); Basophils % (A) 1 %; Eosinophils # (A) 0.6 k/uL (0-0.7); Eosinophils % (A) 6 %; HCT 54.4 % (39.0-53.0); Lymphocytes % (A) 21 %; MCH 28.5 pg (25.0-35.0); MCHC 31.2 g/dL (31.0-37.0); MCV 91.4 fL (80.0-100.0); Mean Platelet Volume 7.8; Monocytes # (A) 0.7 k/uL (0-1.0); Monocytes % (A) 7 %; Neutrophils # (A) 5.9 k/uL (1.3-7.7); Neutrophils % (A) 63 %; Platelet Count 232 k/uL (150-450); RBC 5.96 m/uL (4.30-5.90); WBC 9.5 k/uL (3.8-10.6)
[2019-08-26 07:32] LABS: Prothrombin Time 10.7 sec (9.0-12.0)
[2019-08-26] MEDS ORDERED: LIDOCAINE 1% INJ 10MG/ML (20 ML MDV) SQ ONE (07:41)
[2019-08-26] MEDS ORDERED: MIDAZOLAM 2 MG/2 ML VIAL IV ONE (07:41)
[2019-08-26] MEDS ORDERED: IOPAMIDOL-370 100ML BTL INJ ONE (08:01)
[2019-08-26] MEDS ORDERED: RX INFO: IV CONTRAST WAS GIVEN 1 EACH MISC MISCELLANE PRN (08:08)
[2019-08-26] MEDS ORDERED: hydrOXYzine HCL 25 MG TAB PO PRN (08:12)
[2019-08-26] MEDS ORDERED: FLUTICASONE 50MCG/SPRAY NASAL 16GM EA NOSTRIL PRN (08:12)
[2019-08-26] MEDS ORDERED: PANTOPRAZOLE 40 MG TABLET PO PRN (08:12)
[2019-08-26] MEDS ORDERED: IPRATROPIUM-ALBUTEROL 3 ML NEB INHALATION PRN (08:12)
[2019-08-26] MEDS ORDERED: NITROGLYCERIN SL TABS 0.4 MG TAB SUBLINGUAL PRN (08:12)
[2019-08-26] MEDS ORDERED: TRIAMCINOLONE 0.1% CREAM 80 GM TUBE TOPICAL PRN (08:12)
[2019-08-26] MEDS ORDERED: SODIUM CHLORIDE 0.9% 50 ML BAG ONE (08:19)
[2019-08-26] MEDS ORDERED: BIVALIRUDIN 250 MG VIAL IV ONE (08:19)
[2019-08-26] MEDS: SODIUM CHLORIDE 0.9% 1,000 ML IV SCH ×2 (08:30→17:07)
--- NOTE | 2019-08-26 11:50 | CC ---
CARDIAC CATHETERIZATION REPORT DATE OF SERVICE: 08/26/2019. PROCEDURE: Left heart catheterization and coronary angiography. PERFORMED BY: Dr. Yohannes Gardner. SEDATION: Moderate conscious sedation time was 21 minute. Patient was administered Versed. Oxygen saturation, hemodynamics and EKG were monitored closely. CLINICAL INFORMATION: Mr. Travis Flores is 78-year-old gentleman with a history of previous CVA of the right side, chronic atrial fibrillation, hypertension, hyperlipidemia and CAD. I performed stenting of mid LAD with a bare metal stent in 2001. Since then, he has done fairly well. However, recently in [place] in January, he had a cardiac cath which revealed a restenoses in the mid LAD just before the previous stent and also there was a circumflex stenosis which was quite significant involving the first obtuse marginal. He was advised surgery and/or PCI, but it was a high-risk procedure, but the patient at that time refused medical therapy. Comes in with increasing shortness of breath. Advised a repeat cardiac cath and possible PCI based on findings. Given the fact he has a poor LV function and significant myocardium at jeopardy, he will require if intervention is performed, a Impella supported intervention. Details of the cardiac cath, the risks, benefits, options, rationale were explained to the patient and his . Hemostasis by manual compression acheived. Femstop applied. PROCEDURE NOTE: Under local anesthesia and strict aseptic precautions, a 6-Belarusian introducer was placed in the right femoral artery. Using a JR4 and JL5 catheters, I performed selective coronary angiography and the same right catheter was used to check LV pressure but LV gram was not performed. CARDIAC CATHETERIZATION FINDINGS: The left ventricular end-diastolic pressure was about 15 mmHg without any gradient across aortic valve. CORONARY ANGIOGRAPHY FINDINGS: RIGHT CORONARY ARTERY: Technically a dominant vessel has a mid lesion of 40% long, mild to moderate calcification but no critical stenosis. The mid segment has a 40% calcified lesion distally bifurcates into PDA and PLV, supplies a sizable amount of myocardium. LEFT MAIN CORONARY ARTERY: Long patent disease-free vessel that bifurcates into LAD and circumflex. LEFT ANTERIOR DESCENDING CORONARY ARTERY: Calcified vessel and the stented segment. The proximal portion of the stent and just before the stent there was a 90% stenosis and a small diagonal and septal come off just before the stenosis. The vessel runs all the way to the apex giving off septal and diagonal branches. No significant disease noted. Significant restenosis in the proximal portion of the stent, especially the proximal 1/3 and also prior to the stented segment. This was a bare metal stent in 2001. LEFT POSTERIOR CIRCUMFLEX CORONARY ARTERY: Nondominant vessel gives off a high first obtuse marginal that has a 90% proximal stenosis and then the caliber vessel is good. The vessel gives off a groove branch. Final Impression : Acceptable LVEDP, no gradient across AV. Restenosis of Prox LAD and Prox large OM1, and 40-45% mid RCA. EF <35 by echo. Rec : Impella supported PCI of LAD and LCX OM1 in AM, all risks, benefits options explained to Pt and . They understand and wish to proceed. MMODL / IJN: [id number] / JEANNE
--- NOTE | 2019-08-26 11:53 | CC ---
CARDIAC CATHETERIZATION REPORT ADDENDUM: Add one sentence before we finalize the report in the procedure note: Following the procedure, the sheath was pulled and manual compression applied to secure hemostasis and he was sent to the room in a stable condition. Then go to the cardiac cath findings, etc. DIVINA / JEFRY: [id number] /
[2019-08-26] MEDS ORDERED: ENOXAPARIN 100 MG/ML SYRINGE SQ ONE (13:00)
[2019-08-26] MEDS ORDERED: METOPROLOL TARTRATE 50 MG TAB PO SCH (16:00)
[2019-08-26] MEDS: MAGNESIUM OXIDE 400 MG TAB PO SCH (17:03)
[2019-08-26] MEDS: POTASSIUM CHLORIDE ER 20 MEQ TAB.ER PO SCH (17:03)
[2019-08-26] MEDS: ATORVASTATIN 40 MG TAB PO SCH (17:03)
[2019-08-26] MEDS: METHADONE 5 MG TAB PO SCH ×2 (17:04→22:43)
[2019-08-26] MEDS: FUROSEMIDE 40 MG TAB PO SCH (17:04)
[2019-08-26] MEDS: LOSARTAN 50 MG TAB PO SCH (17:04)
[2019-08-26] MEDS: SERTRALINE 100 MG TAB PO SCH (17:05)
[2019-08-26 17:06] LABS: Glucose,Whole Blood 260 mg/dL (75-99)
[2019-08-26] MEDS: DICLOFENAC SODIUM GEL 100 GM TUBE TOPICAL SCH ×2 (17:09→22:44)
[2019-08-26] MEDS: INSULIN DETEMIR (LEVEMIR) 100 UNIT/ML SYR SQ SCH ×2 (18:06→20:46)
[2019-08-26] MEDS: INSULIN ASPART (NovoLOG) 100 UNIT/ML VIAL SQ SCH ×2 (18:07→20:46)
[2019-08-26] MEDS: SENNOSIDES-DOCUSATE SODIUM 1 EACH TAB PO SCH (18:14)
[2019-08-26 19:44] LABS: Glucose,Whole Blood 332 mg/dL (75-99)
[2019-08-26] MEDS: METOPROLOL TARTRATE 50 MG TAB PO SCH (20:46)
[2019-08-26] MEDS: ASPIRIN 81 MG PO SCH (20:46)
[2019-08-26] MEDS: DOXYCYCLINE 100 MG CAP PO SCH (20:46)
[2019-08-26] MEDS: MONTELUKAST 10 MG TAB PO SCH (20:46)
[2019-08-26] MEDS: MELATONIN 3 MG TABLET PO SCH (22:43)
[2019-08-26 22:49] LABS: Glucose,Whole Blood 94 mg/dL (75-99)
[2019-08-27] MEDS: CYCLOBENZAPRINE 10 MG TAB PO PRN ×2 (00:05→20:32)
[2019-08-27 01:09] LABS: Glucose,Whole Blood 71 mg/dL (75-99)
[2019-08-27 06:12] LABS: Glucose,Whole Blood 81 mg/dL (75-99)
[2019-08-27] MEDS: INSULIN ASPART (NovoLOG) 100 UNIT/ML VIAL SQ SCH ×4 (06:51→23:21)
[2019-08-27] MEDS: SENNOSIDES-DOCUSATE SODIUM 1 EACH TAB PO SCH ×2 (06:56→20:33)
[2019-08-27] MEDS: FUROSEMIDE 40 MG TAB PO SCH ×2 (06:56→18:55)
[2019-08-27] MEDS: LOSARTAN 50 MG TAB PO SCH (06:57)
[2019-08-27] MEDS: ATORVASTATIN 40 MG TAB PO SCH (06:57)
[2019-08-27] MEDS: METOPROLOL TARTRATE 50 MG TAB PO SCH ×2 (06:57→20:32)
[2019-08-27] MEDS: METHADONE 5 MG TAB PO SCH ×3 (06:58→23:29)
[2019-08-27] MEDS: POTASSIUM CHLORIDE ER 20 MEQ TAB.ER PO SCH (06:59)
[2019-08-27] MEDS: SERTRALINE 100 MG TAB PO SCH (06:59)
[2019-08-27] MEDS: DOXYCYCLINE 100 MG CAP PO SCH ×2 (06:59→22:19)
[2019-08-27 08:38] LABS: Glucose,Whole Blood 52 mg/dL (75-99)
[2019-08-27] MEDS ORDERED: DEXTROSE 50% SYRINGE 50 ML IVP ONE ×3 (08:38→13:38)
[2019-08-27 08:53] LABS: Basophils # (A) 0.1 k/uL (0-0.2); Basophils % (A) 1 %; Eosinophils # (A) 0.5 k/uL (0-0.7); Eosinophils % (A) 6 %; HCT 45.6 % (39.0-53.0); HGB 14.6 gm/dL (13.0-17.5); Lymphocytes # (A) 1.6 k/uL (1.0-4.8); Lymphocytes % (A) 21 %; MCH 29.4 pg (25.0-35.0); MCHC 32.1 g/dL (31.0-37.0); MCV 91.5 fL (80.0-100.0); Mean Platelet Volume 7.9; Monocytes # (A) 0.6 k/uL (0-1.0); Monocytes % (A) 8 %; Neutrophils # (A) 4.9 k/uL (1.3-7.7); Neutrophils % (A) 63 %; Platelet Count 192 k/uL (150-450); RBC 4.98 m/uL (4.30-5.90); WBC 7.8 k/uL (3.8-10.6)
[2019-08-27 08:55] LABS: Glucose,Whole Blood 96 mg/dL (75-99)
[2019-08-27] MEDS ORDERED: ENOXAPARIN 100 MG/ML SYRINGE SQ SCH (09:00)
[2019-08-27 09:11] LABS: Calcium 8.3 mg/dL (8.4-10.2); Potassium 3.3 mmol/L (3.5-5.1)
[2019-08-27 09:48] LABS: Glucose,Whole Blood 72 mg/dL (75-99)
[2019-08-27] MEDS: DEXTROSE 5%-0.9% NACL 1,000 ML IV SCH ×2 (10:19→20:14)
[2019-08-27] MEDS: DICLOFENAC SODIUM GEL 100 GM TUBE TOPICAL SCH ×4 (10:20→23:26)
[2019-08-27 10:27] LABS: Glucose,Whole Blood 67 mg/dL (75-99)
[2019-08-27] MEDS ORDERED: DEXTROSE 50% SYRINGE 50 ML IVP STA (11:13)
[2019-08-27 11:43] LABS: Glucose,Whole Blood 110 mg/dL (75-99)
[2019-08-27] MEDS ORDERED: LIDOCAINE 1% INJ 10MG/ML (20 ML MDV) SQ ONE (12:08)
[2019-08-27] MEDS ORDERED: MIDAZOLAM 2 MG/2 ML VIAL IVP ONE (12:08)
[2019-08-27] MEDS ORDERED: ASPIRIN 325 MG TAB PO ONE (12:11)
[2019-08-27] MEDS ORDERED: IV FLUID CONTINUATION 1,000 ML IV ONE (12:21)
[2019-08-27] MEDS ORDERED: HEPARIN SODIUM 1,000 UN/ML (10ML VL) IV ONE (12:53)
[2019-08-27] MEDS: HYDROmorphone 1 MG/ML 1 ML SYRINGE IVP ONE ×2 (13:38→14:39)
[2019-08-27] MEDS ORDERED: CLOPIDOGREL 75 MG TAB PO ONE (14:08)
[2019-08-27] MEDS ORDERED: IOPAMIDOL-370 100ML BTL INJ ONE ×3 (14:08→14:39)
[2019-08-27] MEDS: NITROGLYCERIN 1000MCG/10ML SYRINGE INTRACORON ONE ×2 (14:11→14:33)
[2019-08-27 14:19] LABS: Glucose,Whole Blood 132 mg/dL (75-99)
[2019-08-27] MEDS ORDERED: RX INFO: IV CONTRAST WAS GIVEN 1 EACH MISC MISCELLANE PRN (15:25)
[2019-08-27] MEDS ORDERED: MAG HYDROX/AL HYDROX/SIMETH 30 ML CUP PO PRN (15:25)
[2019-08-27] MEDS ORDERED: ATROPINE SULFATE 0.1 MG/ML 10ML SYRINGE IV PRN (15:25)
[2019-08-27] MEDS ORDERED: ZOLPIDEM 5 MG TAB PO PRN (15:25)
[2019-08-27 15:43] LABS: Glucose,Whole Blood 152 mg/dL (75-99)
[2019-08-27 17:09] LABS: INR 1.1 (<1.2); Prothrombin Time 11.5 sec (9.0-12.0)
[2019-08-27 17:55] LABS: Glucose,Whole Blood 117 mg/dL (75-99)
[2019-08-27] MEDS ORDERED: WARFARIN 5 MG TAB PO SCH (18:00)
[2019-08-27] MEDS ORDERED: Potassium Replacement Protocol 1 EACH MISC MISCELLANE PRN (18:49)
[2019-08-27] MEDS: POTASSIUM BICARBONATE/CIT AC 20 MEQ TABLET.EFF NG-TUBE SCH ×2 (18:56→20:31)
[2019-08-27 19:25] LABS: Calcium 8.2 mg/dL (8.4-10.2); Magnesium 1.7 mg/dL (1.6-2.3); Phosphorus 2.9 mg/dL (2.5-4.5); Potassium 3.4 mmol/L (3.5-5.1)
[2019-08-27] MEDS ORDERED: Magnesium Replacement Protocol 1 EACH MISC MISCELLANE PRN (20:00)
[2019-08-27] MEDS ORDERED: Phosphorus Replacement Protoco 1 EACH MISC MISCELLANE PRN (20:00)
--- NOTE | 2019-08-27 20:20 | PTCA ---
PERCUTANEOUSTRANS CORORONARY ANGIOGRAPHY DATE OF SERVICE: 08/27/2019. PROCEDURE: 1. PTCA and stenting of a left iliac artery performed by Dr. Mcfadden during this procedure. A separate note will be dictated by him. 2. Heart pump Impella placement from right femoral arterial approach. 3. PTCA and stenting of proximal LAD with a drug-eluting stent. 4. PTCA and stenting of proximal circumflex marginal with a drug-eluting stent. PERFORMED BY: Dr. Yohannes Gardner. Iliac stenting performed by Dr. Mcfadden. Moderate conscious sedation time was 167 minutes. Patient was administered Versed, fentanyl and Dilaudid. Oxygen saturation, hemodynamics and EKG were monitored closely. CLINICAL INFORMATION: Mr. Travis Flores is a 79-year-old gentleman who has history of CAD and PCI of proximal LAD performed in 2001. He had been to [place], developed heart failure with ischemia, had a cardiac catheterization, advised intervention with high risk, but patient refused and came here. He was advised that surgery was high risk for him. I performed coronary angiography yesterday and noted that the proximal LAD and proximal circumflex marginal had a 90% or more lesions and patient's ejection fraction is less than 35%. He was advised intervention and brought in for the procedure electively today. PROCEDURE NOTE: Under local anesthesia and strict aseptic precautions, I advanced a 6-Belarusian micro catheter with a micropuncture needle technique. I did an angiogram to make sure the puncture was above the bifurcation. I noted that there was a heavily calcified plaque with a dissection in the iliac artery. At this point, I decided to request Dr. Mcfadden's assistance. I then went from the right femoral approach and advanced and positioned a 6-Belarusian introducer under fluoroscopic guidance. This sheath was securely placed. Dr. Mcfadden came in and I assisted him in the intervention of left iliac artery, where a stent was placed with excellent result. We then obtained access from the left femoral artery and a 6-Belarusian introducer was placed in the left femoral artery. In the right femoral artery there was a 6-Belarusian introducer. This was exchanged over a wire for an 8-Belarusian introducer. I then pre-closed with 2 Perclose devices in the 2 o'clock and 10 o'clock position and then advanced a 10-Belarusian dilator, after which I placed a 12-Belarusian arterial sheath into the right femoral artery uneventfully. The patient was given 10,000 units of heparin and his ACT was about 330 initially, then came to 290 and then to 270 at the end of the procedure. He also received 600 mg of Plavix orally. The Impella heart pump was advanced and positioned in the left ventricle using a standard technique with a pigtail catheter, and this pigtail catheter was exchanged for an 0.018 wire and Impella heart pump was advanced over this wire and positioned in the left ventricle. Good waveforms, and cardiac output was about 2.3 L. I then turned my attention from the left femoral approach to perform intervention. A JL5 guide catheter was used to cannulate left coronary artery. A run-through wire was used to cross the lesion in the LAD. I pre-dilated the LAD lesion with a 2.5 caliber 12 mm NC Trek balloon. This was a very difficult lesion. I had to use high pressures. I deployed a 3.25 caliber 12 mm Xience stent. There was still some narrowing. I then used a 3.5 caliber 8 mm NC Trek balloon with high pressures, and excellent angiographic result was achieved. Patient had chest pain and had mild ST elevation anteriorly. I then advanced the same wire, but I could not advance beyond the blockage into the circumflex. I switched over to a new run-through wire and with this I crossed the lesion in the circumflex marginal. Pre-dilatation was achieved with a 2.75 caliber 12 mm NC Trek balloon. I then deployed an 18 mm long 4.0 caliber Xience stent and deployed this at 14 atmospheres. This was a heavily calcified lesion. Excellent angiographic result was achieved. Patient had significant chest discomfort and hypotension. Both lesions were excellent; at the end of the procedure there was remarkable improvement in the angiographic appearance and flow. Under fluoroscopic guidance, the Impella was taken out. I then took out this 12-Belarusian sheath over a wire. I was able to get one Perclose device very well latched, but the second Perclose device broke. I could not therefore use the second Perclose device in the 2 o'clock position. I then advanced an 8-Belarusian Angio-Seal and used this Angio-Seal to secure additional hemostasis. A combination of 8-Belarusian Angio-Seal and a Perclose device ensured excellent hemostasis in the right groin. The left sheath was sutured and patient was sent to the extended-stay unit with the understanding that he would go to the ICU when the bed was available. The patient had excellent pulses in both lower extremities at the end of the procedure. Results were discussed with the patient's , and I also spoke to the patient's daughter by phone. Patient received 600 mg of Plavix. Excellent angiographic result was achieved. He will be going to the ICU after he gets a bed, and in the interim he will be in the extended-stay unit. Excellent angiographic result was achieved. Results were discussed with the patient and family. DIVINA / JEFRY: [id number] /
[2019-08-27] MEDS: MAGNESIUM SULFATE-D5W PMX 1 GM in DEXTROSE/WATER 1 100ML.BAG IVPB SCH ×2 (20:25→22:19)
[2019-08-27] MEDS: SODIUM CHLORIDE 0.9% 1,000 ML IV SCH (20:31)
[2019-08-27] MEDS: MELATONIN 3 MG TABLET PO SCH (20:32)
[2019-08-27] MEDS: MONTELUKAST 10 MG TAB PO SCH (20:33)
[2019-08-27] MEDS: ASPIRIN 81 MG PO SCH (20:33)
[2019-08-27] MEDS: MAGNESIUM OXIDE 400 MG TAB PO SCH (20:38)
--- NOTE | 2019-08-27 21:09 | P.HPIM ---
History of Present Illness H&P Date: 08/27/19 Chief Complaint: Shortness of breath History of presenting complaint: This is a 79-year-old patient of Dr. Yosvany harper chronic stable medical conditions include diabetes, hyperlipidemia, hypertension, fibromyalgia, right- sided weakness from prior stroke and peripheral neuropathy. CHF with EF of 30- 35% underlying atrial fibrillation. States that previously also's had a lumbar L3-L4 epidural abscess , carotid artery disease with prior stent, depression uses a walker to baseline COPD presbyesophagus causing chronic dysphagia. Patient and his had been in [place]. Patient having episodes of shortness of breath. After further cardiac workup he was advised coronary bypass. Patient and family decided to call Dr. BEN Gardner and decided to bring him back to [place]. Today patient underwent cardiac catheterization and was found critical stenosis of LAD 90%, obtuse marginal same and circumflex. Successful intervention was done to the LAD and obtuse marginal. Circumflex will be intermittent in the future. Patient also lateral up having left iliac artery dissection and Dr. Mcfadden to carry out an urgent stenting. Patient was seen by me in the ICU this evening. is present at the bedside. Hemodynamically stable. No chest pain no shortness of breath. Review of systems: GEN.: Tired EYES: None HEENT: Decreased hearing NECK: None RESPIRATORY: Short of breath with activity CARDIOVASCULAR: None GASTROINTESTINAL: None GENITOURINARY: Hematuria at home MUSCULOSKELETAL: Pain in joints LYMPHATICS: None HEMATOLOGICAL: None PSYCHIATRY: Anxious NEUROLOGICAL: Right-sided weakness from prior stroke Past medical history: Epidural abscess at L3-L4, CHF EF 40%, atrial fibrillation, diabetes, hyperlipidemia, hypertension, fibromyalgia, hiatal hernia, right-sided weakness from prior stroke, herniated disc in the lumbar spine, coronary artery disease with stent, depression, A dysfunction uses a walker, COPD, presbyesophagus, Social history . Ex-smoker. No alcohol. Family history: Father prostate cancer Physical examination: VITAL SIGNS: 96.3, 70, 17, 129/73, 94% on room air GENERAL: BMI 32.8, laying in bed slightly anxious. EYES: Pupils equal. Conjunctiva pale. HEENT: External appearance of nose and ears normal, oral cavity grossly normal, decreased hearing. NECK: JVD unable to assess, mass not palpable. HEART: First and second heart sounds are normal; no edema. LUNGS: Respiratory rate normal; decreased breath sounds. ABDOMEN: Soft, nontender, liver spleen not palpable, no masses palpable. Patient has a FemoStop in the left groin PSYCH: Alert and oriented x3; mood and affect anxious. NEUROLOGICAL: Cranial nerves grossly intact; no facial asymmetry, decreased power of the right side. LYMPHATICS: No lymph nodes palpable in the axilla and neck INVESTIGATIONS, reviewed in the clinical context: White count 7.8 hemoglobin 14.6 platelets 192 potassium 3.3 creatinine 1.01 [id number]-02, 67, 110 Previous labs: White count 9.5 hemoglobin 17 Assessment: -Coronary artery disease with successful stenting to the obtuse marginal and LAD. Further intervention to be done to circumflex down the road -Acute blood loss anemia secondary to blood loss from iliac artery dissection -Acute iatrogenic iliac artery dissection, with stent placement -chronic congestive heart failure / systolic dysfunction EF 40% from underlying coronary artery disease, -Persistent atrial flutter fibrillation chronically on Coumadin -Diabetes mellitus type 2, uncontrolled with hypoglycemia -Hyperlipidemia -Hypotension from blood loss anemia -Chronic fibromyalgia -Hiatal hernia -Chronic right-sided paresis from stroke -Chronic cardiac disc and lumbar spine -Coronary artery disease with stent -Chronic gait dysfunction uses a walker -COPD in X smoker -presbyesophagus Plan: Patient is put on a hypoglycemia protocol. Has a FemoStop in the Left groin. Accu-Cheks are being followed. Other home medications resumed. Patient put on a consistent complaint a diet. Care was discussed with the patient and at the bedside. Follow with cardiology. 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 History of Any Multi-Drug Resistant Organisms: None Reported Past Surgical History: Back Surgery, Heart Catheterization With Stent, Orthopedic Surgery, Prostate Surgery Additional Past Surgical History / Comment(s): unsuccessful cardioversion in 2017, endoscopic sinus surgery/polypectomy, colonoscopy, TURP, bilateral hydrocelectomy, rt elbow surgery, toñito cataracts, laminectomy Past Anesthesia/Blood Transfusion Reactions: No Reported Reaction Date of Last Stent Placement:: 2001 Smoking Status: Former smoker - Past Family History Mother Family Medical History: No Reported History Father Family Medical History: Cancer Additional Family Medical History / Comment(s): Father had prostrate cancer. Medications and Allergies Home Medications Medication Instructions Recorded Confirmed Type Triamcinolone 0.1% Cream [Kenalog 1 applic TOPICAL BID PRN 07/08/17 08/26/19 History 0.1% Cream] Methadone [Dolophine] 5 mg PO Q8H #9 tab 09/13/17 08/26/19 Rx Omeprazole [PriLOSEC] 20 mg PO TID PRN 09/20/17 08/26/19 History Cyanocobalamin (Vitamin B-12) 1,000 mcg PO DAILY@1200 10/31/18 08/26/19 History [Vitamin B-12] Cyclobenzaprine [Flexeril] 10 mg PO TID PRN 10/31/18 08/26/19 History Diclofenac Sodium [Voltaren Gel] 2 gram TOPICAL QID 10/31/18 08/26/19 History Eye Vitamin 1 tab PO DAILY 10/31/18 08/26/19 History Fluticasone Nasal Ulmer [Flonase 2 spr EA NOSTRIL DAILY PRN 10/31/18 08/26/19 History Nasal Ulmer] Ipratropium-Albuterol Nebulize 3 ml INHALATION RT-TID PRN 10/31/18 08/26/19 Hi story [Duoneb 0.5 mg-3 mg/3 ml Soln] Magnesium Oxide [Mag-Ox] 250 mg PO DAILY 10/31/18 08/26/19 History Montelukast [Singulair] 10 mg PO HS 10/31/18 08/26/19 History Nitroglycerin Sl Tabs [Nitrostat] 0.4 mg SUBLINGUAL Q5M PRN 10/31/18 08/26/19 History Sertraline [Zoloft] 100 mg PO DAILY 10/31/18 08/26/19 History Vitamin E 100 unit PO DAILY@1200 10/31/18 08/26/19 History hydrOXYzine HCL [Atarax] 25 mg PO TID PRN 10/31/18 08/26/19 History Aspirin EC [Ecotrin Low Dose] 81 mg PO HS #0 11/08/18 08/26/19 Rx Melatonin 3 mg PO HS tablet 11/08/18 08/26/19 Rx Metoprolol Tartrate [Lopressor] 50 mg PO BID #60 tab 11/08/18 08/26/19 Rx Sennosides-Docusate Sodium 2 each PO BID #60 tab 11/08/18 08/26/19 Rx [Senokot-S] Doxycycline [Vibramycin] 100 mg PO BID 3 Days #5 capsule 11/13/18 08/23/19 Rx Furosemide [Lasix] 80 mg PO BID@0900,1600 #60 tablet 11/13/18 08/26/19 Rx Insulin Glargine,Hum.rec.anlog 56 units SQ DAILY 08/23/19 08/26/19 History [Toujeo Solostar] Potassium Chloride ER [K-Dur 20] 40 meq PO BID 08/23/19 08/26/19 History Warfarin Sodium 4 mg PO HS 08/23/19 08/26/19 History Allergies Allergy/AdvReac Type Severity Reaction Status Date / Time Sulfa (Sulfonamide Allergy Rash/Hives Verified 08/26/19 06:42 Antibiotics) Physical Exam Vitals: Vital Signs Temp Pulse Pulse Resp BP BP Pulse Ox 08/27/19 19:00 104 H 16 127/92 92 L 08/27/19 18:30 94 16 101/80 94 L 08/27/19 18:00 90 19 95 08/27/19 17:51 17 08/27/19 17:10 132/81 95 08/27/19 16:40 172/104 92 L 08/27/19 16:10 140/80 92 L 08/27/19 15:55 141/82 93 L 08/27/19 15:53 123/79 96 08/27/19 15:38 139/79 94 L 08/27/19 15:23 132/76 97 08/27/19 11:25 97 F L 83 143/80 93 L 08/27/19 08:09 96.3 F L 70 129/73 94 L 08/27/19 08:00 70 17 08/27/19 04:00 97.6 F 72 17 133/83 95 08/26/19 23:58 60 17 107/65 95 Intake and Output 08/27/19 08/27/19 08/27/19 06:59 14:59 22:59 Intake Total 525 600 40 Output Total 1225 450 750 Balance -700 150 -710 Intake: IV 600 Intake, IV Titration 525 40 Amount Dextrose 5%-0.9% NaCl 1, 40 000 ml @ 75 mls/hr IV . [id number] COUNTS INCLUDE 234 BEDS AT THE [facility] Rx#:[id number] Sodium Chloride 0.9% 1, 525 000 ml @ 75 mls/hr IV . [id number] COUNTS INCLUDE 234 BEDS AT THE [facility] Rx#:[id number] Output: Urine 1225 450 750 Other: Voiding Method Urinal Urinal Weight 112.8 kg Results CBC & Chem 7: 08/27/19 07:51 08/27/19 18:11 Labs: Abnormal Lab Results - Last 24 Hours (Table) 08/27/19 08/27/19 08/27/19 Range/Units 01:08 07:51 08:37 Sodium 136 L (137-145) mmol/L Potassium 3.3 L (3.5-5.1) mmol/L Chloride 94 L (98-107) mmol/L Carbon Dioxide 36 H (22-30) mmol/L BUN 32 H (9-20) mg/dL Glucose 57 L (74-99) mg/dL POC Glucose (mg/dL) 71 L 52 L (75-99) mg/dL Calcium 8.3 L (8.4-10.2) mg/dL 08/27/19 08/27/19 08/27/19 Range/Units 09:47 10:26 11:31 Sodium (137-145) mmol/L Potassium (3.5-5.1) mmol/L Chloride (98-107) mmol/L Carbon Dioxide (22-30) mmol/L BUN (9-20) mg/dL Glucose (74-99) mg/dL POC Glucose (mg/dL) 72 L 67 L 110 H (75-99) mg/dL Calcium (8.4-10.2) mg/dL 08/27/19 08/27/19 08/27/19 Range/Units 14:17 15:41 17:53 Sodium (137-145) mmol/L Potassium (3.5-5.1) mmol/L Chloride (98-107) mmol/L Carbon Dioxide (22-30) mmol/L BUN (9-20) mg/dL Glucose (74-99) mg/dL POC Glucose (mg/dL) 132 H 152 H 117 H (75-99) mg/dL Calcium (8.4-10.2) mg/dL 08/27/19 Range/Units 18:11 Sodium 131 L (137-145) mmol/L Potassium 3.4 L (3.5-5.1) mmol/L Chloride 95 L (98-107) mmol/L Carbon Dioxide 32 H (22-30) mmol/L BUN 25 H (9-20) mg/dL Glucose 126 H (74-99) mg/dL POC Glucose (mg/dL) (75-99) mg/dL Calcium 8.2 L (8.4-10.2) mg/dL Thrombosis Risk Factor Assmnt - Choose All That Apply Any of the Below Risk Factors Present?: Yes Each Factor Represents 1 point: Abnormal pulmonary function (COPD), Medical pt on bed rest, Obesity (BMI >25) Other Risk Factors: Yes Each Risk Factor Represents 3 Points: Age 75 years or older Other congenital or acquired thrombophilia - If yes, enter type in comment: No Thrombosis Risk Factor Assessment Total Risk Factor Score: 6 Thrombosis Risk Factor Assessment Level: High Risk
[2019-08-27 22:30] LABS: Glucose,Whole Blood 173 mg/dL (75-99)
--- NOTE | 2019-08-28 00:17 | AN ---
ANGIOGRAPHY REPORT DATE OF SERVICE: August 26, 2019 PERFORMING PHYSICIAN: Michoacano Mcfadden MD. PROCEDURE PERFORMED: 1. Successful stenting of the distal left external iliac artery using 9.0 x 60 mm self expandable stent with an excellent angiographic results. 2. Selective left external iliac artery angiogram. INDICATION: This is a 79-year-old gentleman who was admitted to the hospital today by Dr. Gardner to undergo percutaneous coronary intervention with adjunctive use of Impella. He did have a dissection of the left external iliac artery with a micropuncture wire. There was no flow to the left leg and because of that, percutaneous peripheral intervention on the left external iliac artery was advised. APPROACH: Right common femoral artery. COMPLICATION: None. LEVEL OF SEDATION: Moderate with sedation length of about 30 minutes. PROCEDURE DESCRIPTION: Please refer to the beginning of the procedure was dictated by Dr. Gardner earlier today. I did exchange the 11 cm 6-Norwegian sheath into 55 cm 6-Norwegian Miki sheath. That was performed over a 0.035 regular Glidewire which was advanced all the way to the left SFA going up and over using a backup support of 5-Norwegian Omniflush catheter. Subsequently, the sheath was advanced to the left common iliac artery. Selective left common iliac artery angiogram was performed and showed the area of dissection. After that I did a predilatation using 6 mm balloon before I deployed 10 x 60 mm self expandable stent where the stent was positioned under fluoroscopy guidance and deployed under fluoroscopy guidance. Post dilatation was performed using 9 mm balloon. The following angiogram showed excellent angiographic results and the procedure was completed without any complication. POSTPROCEDURE MANAGEMENT: 1. Dual anti-platelet therapy. 2. Risk factor modifications. 3. Follow up with the patient. MMODL / IJN: [id number] /
[2019-08-28] MEDS: ONDANSETRON 4 MG/2 ML VIAL IVP PRN (00:28)
[2019-08-28 00:32] LABS: Glucose,Whole Blood 167 mg/dL (75-99)
[2019-08-28 04:40] LABS: Basophils % (A) 0 %; Eosinophils # (A) 0.2 k/uL (0-0.7); Eosinophils % (A) 2 %; HCT 41.9 % (39.0-53.0); HGB 13.2 gm/dL (13.0-17.5); Lymphocytes # (A) 0.9 k/uL (1.0-4.8); Lymphocytes % (A) 9 %; MCH 29.1 pg (25.0-35.0); MCHC 31.6 g/dL (31.0-37.0); MCV 92.2 fL (80.0-100.0); Mean Platelet Volume 8.1; Monocytes # (A) 0.8 k/uL (0-1.0); Monocytes % (A) 8 %; Neutrophils % (A) 79 %; Platelet Count 168 k/uL (150-450); RBC 4.55 m/uL (4.30-5.90); RDW 14.3 % (11.5-15.5); WBC 10.2 k/uL (3.8-10.6)
[2019-08-28 04:49] LABS: Prothrombin Time 10.7 sec (9.0-12.0)
[2019-08-28 04:57] LABS: Calcium 8.2 mg/dL (8.4-10.2); Magnesium 2.3 mg/dL (1.6-2.3); Potassium 3.8 mmol/L (3.5-5.1)
[2019-08-28] MEDS: SODIUM CHLORIDE 0.9% 1,000 ML IV SCH ×2 (06:35→09:00)
[2019-08-28 06:40] LABS: Glucose,Whole Blood 141 mg/dL (75-99)
[2019-08-28] MEDS: INSULIN DETEMIR (LEVEMIR) 100 UNIT/ML SYR SQ SCH (06:44)
[2019-08-28] MEDS: INSULIN ASPART (NovoLOG) 100 UNIT/ML VIAL SQ SCH ×4 (06:44→21:13)
[2019-08-28] MEDS ORDERED: POTASSIUM BICARBONATE/CIT AC 20 MEQ TABLET.EFF NG-TUBE SCH ×2 (07:00→10:00)
[2019-08-28] MEDS ORDERED: FUROSEMIDE 10 MG/ML 4 ML VIAL IV STA (07:26)
[2019-08-28] MEDS: ATORVASTATIN 40 MG TAB PO SCH (08:57)
[2019-08-28] MEDS: CYCLOBENZAPRINE 10 MG TAB PO PRN ×2 (08:57→21:13)
[2019-08-28] MEDS: CLOPIDOGREL 75 MG TAB PO SCH (08:57)
[2019-08-28] MEDS: LOSARTAN 50 MG TAB PO SCH (08:57)
[2019-08-28] MEDS: FUROSEMIDE 40 MG TAB PO SCH ×2 (08:57→17:33)
[2019-08-28] MEDS: METHADONE 5 MG TAB PO SCH ×2 (08:58→17:32)
[2019-08-28] MEDS: SENNOSIDES-DOCUSATE SODIUM 1 EACH TAB PO SCH ×2 (08:58→21:13)
[2019-08-28] MEDS: METOPROLOL TARTRATE 50 MG TAB PO SCH ×2 (08:58→21:13)
[2019-08-28] MEDS: DICLOFENAC SODIUM GEL 100 GM TUBE TOPICAL SCH ×4 (08:59→21:13)
[2019-08-28] MEDS: POTASSIUM CHLORIDE ER 20 MEQ TAB.ER PO SCH (08:59)
[2019-08-28] MEDS: SERTRALINE 100 MG TAB PO SCH (08:59)
[2019-08-28 10:19] VITALS: BMI 32.3
[2019-08-28 12:40] LABS: Glucose,Whole Blood 225 mg/dL (75-99)
[2019-08-28] MEDS: MAGNESIUM OXIDE 400 MG TAB PO SCH (12:41)
--- NOTE | 2019-08-28 14:52 | PN ---
PROGRESS NOTE Travis is a 79-year-old gentleman who is admitted to hospital electively for angioplasty of proximal LAD and proximal circumflex coronary artery with an Impella support. His procedure was complicated by dissection of the iliac artery for which he underwent stenting by Dr. Mcfadden. This morning, patient is doing well. He is free of chest pain or difficulty in breathing. On exam, vital signs are stable. Chest exam reveals good air entry bilaterally. Heart exam reveals first and second heart sounds. No gallop. Exam of extremities did not reveal any edema. Peripheral pulses are palpable. Labs show a hemoglobin of 13.2. Platelet count is 168, potassium is 3.8, creatinine is 1.1. Current medications include aspirin, Lipitor, Plavix, Lasix, insulin, Cozaar, Lopressor. ASSESSMENT: 1. Coronary artery disease status post multivessel angioplasty. 2. Dissection of the iliac artery status post stenting. PLAN: Patient is doing well this morning. We can move him out of ICU. Hopefully home tomorrow. MMODL / IJN: [id number] /
--- NOTE | 2019-08-28 17:05 | P.PN ---
Progress Note - Text Progress Note Date: 08/28/19 Chief Complaint: Shortness of breath History of presenting complaint: This is a 79-year-old patient of Dr. Yosvany harper chronic stable medical conditions include diabetes, hyperlipidemia, hypertension, fibromyalgia, right- sided weakness from prior stroke and peripheral neuropathy. CHF with EF of 30- 35% underlying atrial fibrillation. States that previously also's had a lumbar L3-L4 epidural abscess , carotid artery disease with prior stent, depression uses a walker to baseline COPD presbyesophagus causing chronic dysphagia. Patient and his had been in [place]. Patient having episodes of shortness of breath. After further cardiac workup he was advised coronary bypass. Patient and family decided to call Dr. BEN Gardner and decided to bring him back to [place]. Today patient underwent cardiac catheterization and was found critical stenosis of LAD 90%, obtuse marginal same and circumflex. Successful intervention was done to the LAD and obtuse marginal. Circumflex will be intermittent in the future. Patient also lateral up having left iliac artery dissection and Dr. Mcfadden to carry out an urgent stenting. Patient was seen by me in the ICU this evening. is present at the bedside. Hemodynamically stable. No chest pain no shortness of breath. Today-sitting up in a chair at the bedside. The ICU. Did tolerate her diet. Breathing improved. No chest pain. Overall feels better. FemoStop was removed last night. Review of systems: Was done for constitutional, cardiovascular, GI, pulmonary. relevant finding as above Active Medications Al Hydroxide/Mg Hydroxide (Maalox) 30 ml PO Q4HR PRN PRN Reason: Heartburn Albuterol/Ipratropium (Duoneb 0.5 Mg-3 Mg/3 Ml Soln) 3 ml INHALATION RT-TID PRN PRN Reason: Shortness Of Breath Last Admin: 08/28/19 00:36 Dose: 3 ml Documented by: Alprazolam (Xanax) 0.25 mg PO Q6HR PRN PRN Reason: Mild Anxiety Alprazolam (Xanax) 0.5 mg PO Q6HR PRN PRN Reason: Moderate Anxiety Aspirin (Aspirin) 81 mg PO HS [facility] Last Admin: 08/27/19 20:33 Dose: 81 mg Documented by: Atorvastatin Calcium (Lipitor) 40 mg PO DAILY [facility] Last Admin: 07/01/20 08:57 Dose: 40 mg Documented by: Atropine Sulfate (Atropine) 0.5 mg IV ONCE PRN PRN Reason: Symptomatic Bradycardia Clopidogrel Bisulfate (Plavix) 75 mg PO DAILY [facility] Last Admin: 08/28/19 08:57 Dose: 75 mg Documented by: Cyclobenzaprine HCl (Flexeril) 10 mg PO TID PRN PRN Reason: Pain Last Admin: 08/28/19 08:57 Dose: 10 mg Documented by: Diclofenac Sodium (Voltaren Gel) 2 gm TOPICAL QID [facility] Last Admin: 08/28/19 12:42 Dose: 2 gm Documented by: Fluticasone Propionate (Flonase Nasal [place]) 2 spray EA NOSTRIL DAILY PRN PRN Reason: Allergy Symptoms Furosemide (Lasix) 40 mg PO BID@0900,1600 [facility] Last Admin: 08/28/19 08:57 Dose: 40 mg Documented by: Hydroxyzine HCl (Atarax) 25 mg PO TID PRN PRN Reason: Itching Sodium Chloride (Saline 0.9%) 1,000 mls @ 20 mls/hr IV .Q24H [facility] Last Admin: 08/28/19 09:00 Dose: 20 mls/hr Documented by: Insulin Aspart (Novolog) 0 unit SQ [facility]; Protocol Last Admin: 08/28/19 12:41 Dose: 5 unit Documented by: Insulin Detemir (Levemir) 56 unit SQ DAILY@0700 [facility] Last Admin: 08/28/19 06:44 Dose: 56 unit Documented by: Losartan Potassium (Cozaar) 50 mg PO DAILY [facility] Last Admin: 08/28/19 08:57 Dose: 50 mg Documented by: Magnesium Oxide (Mag-Ox) 400 mg PO DAILY@1200 [facility] Last Admin: 08/28/19 12:41 Dose: 400 mg Documented by: Melatonin (Melatonin) 3 mg PO HS [facility] Last Admin: 08/27/19 20:32 Dose: 3 mg Documented by: Methadone HCl (Dolophine) 5 mg PO Q8H [facility] Last Admin: 08/28/19 08:58 Dose: 5 mg Documented by: Metoprolol Tartrate (Lopressor) 50 mg PO BID [facility] Last Admin: 08/28/19 08:58 Dose: 50 mg Documented by: Miscellaneous Information (Rx Info: Iv Contrast Was Given) 1 each MISCELLANE DAILY PRN PRN Reason: Per Protocol Stop: 08/29/19 15:25 Miscellaneous Information (Coumadin Per Pharmacy) 0 each MISCELLANE DIRECTED PRN PRN Reason: PHARMACY ON THE CASE Miscellaneous Information (Potassium Per Protocol) 1 each MISCELLANE DAILY PRN; Protocol PRN Reason: Per Protocol Miscellaneous Information (Magnesium Per Protocol) 1 each MISCELLANE DAILY PRN; Protocol PRN Reason: Per Protocol Miscellaneous Information (Phosphorus Per Protocol) 1 each MISCELLANE DAILY PRN; Protocol PRN Reason: Per Protocol Montelukast Sodium (Singulair) 10 mg PO HS [facility] Last Admin: 08/27/19 20:33 Dose: 10 mg Documented by: Nitroglycerin (Nitrostat) 0.4 mg SUBLINGUAL Q5M PRN PRN Reason: Chest Pain Ondansetron HCl (Zofran) 4 mg IVP Q6HR PRN PRN Reason: Nausea And Vomiting Last Admin: 08/28/19 00:28 Dose: 4 mg Documented by: Pantoprazole Sodium (Protonix) 40 mg PO TID PRN PRN Reason: Heartburn Potassium Chloride (K-Dur 20) 40 meq PO QAM [facility] Last Admin: 08/28/19 08:59 Dose: 40 meq Documented by: Senna/Docusate Sodium (Senokot-S) 2 each PO BID [facility] Last Admin: 08/28/19 08:58 Dose: 2 each Documented by: Sertraline HCl (Zoloft) 100 mg PO DAILY [facility] Last Admin: 08/28/19 08:59 Dose: 100 mg Documented by: Triamcinolone Acetonide (Kenalog) 1 applic TOPICAL BID PRN PRN Reason: Itching Warfarin Sodium (Coumadin) 5 mg PO ONCE@1800 [facility] Stop: 08/28/19 18:01 Zolpidem Tartrate (Ambien) 5 mg PO HS PRN PRN Reason: Insomnia Physical examination: VITAL SIGNS: 98.2, 18, 136/59, 94% on 2 L GENERAL: Sitting upon a chair, more comfortable. EYES: Pupils equal. Conjunctiva pale. HEENT: External appearance of nose and ears normal, oral cavity grossly normal, decreased hearing. NECK: JVD unable to assess, mass not palpable. HEART: Heart sounds irregular; no edema. LUNGS: Respiratory rate normal; decreased breath sounds. ABDOMEN: Soft, nontender, liver spleen not palpable, no masses palpable. Patient has a FemoStop in the left groin PSYCH: Alert and oriented x3; mood and affect anxious. NEUROLOGICAL: Cranial nerves grossly intact; no facial asymmetry, decreased power of the right side. INVESTIGATIONS, reviewed in the clinical context: White count 10.2 hemoglobin 13.2 potassium 3.8 crit 1.18 sodium 1:30 Accu-Cheks 141, 245 Previous labs: White count 9.5 hemoglobin 17 Assessment: -Coronary artery disease with successful stenting to the obtuse marginal and LAD. 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 Overall feeling better.. Coumadin is being resumed by cardiology. Follow closely. Hopefully discharge in 24 hours.
[2019-08-28 17:27] LABS: Glucose,Whole Blood 97 mg/dL (75-99)
[2019-08-28] MEDS ORDERED: WARFARIN 5 MG TAB PO ONE (18:00)
[2019-08-28 21:01] LABS: Glucose,Whole Blood 179 mg/dL (75-99)
[2019-08-28] MEDS: ASPIRIN 81 MG PO SCH (21:13)
[2019-08-28] MEDS: MONTELUKAST 10 MG TAB PO SCH (21:13)
[2019-08-28] MEDS: MELATONIN 3 MG TABLET PO SCH (21:13)
[2019-08-29] MEDS: METHADONE 5 MG TAB PO SCH ×4 (00:46→23:53)
[2019-08-29 02:25] LABS: Glucose,Whole Blood 101 mg/dL (75-99)
[2019-08-29 06:46] LABS: Basophils % (A) 0 %; Eosinophils # (A) 0.5 k/uL (0-0.7); Eosinophils % (A) 6 %; HCT 39.4 % (39.0-53.0); HGB 12.7 gm/dL (13.0-17.5); Hypochromasia Slight; Lymphocytes # (A) 1.5 k/uL (1.0-4.8); Lymphocytes % (A) 16 %; MCH 30.3 pg (25.0-35.0); MCHC 32.4 g/dL (31.0-37.0); MCV 93.6 fL (80.0-100.0); Mean Platelet Volume 7.8; Monocytes # (A) 0.8 k/uL (0-1.0); Monocytes % (A) 8 %; Neutrophils # (A) 6.3 k/uL (1.3-7.7); Neutrophils % (A) 68 %; Platelet Count 167 k/uL (150-450); RBC 4.21 m/uL (4.30-5.90); WBC 9.3 k/uL (3.8-10.6)
[2019-08-29 06:50] LABS: INR 1.2 (<1.2); Prothrombin Time 11.9 sec (9.0-12.0)
[2019-08-29] MEDS: INSULIN ASPART (NovoLOG) 100 UNIT/ML VIAL SQ SCH ×4 (06:50→21:28)
[2019-08-29] MEDS: SODIUM CHLORIDE 0.9% 1,000 ML IV SCH ×2 (06:51→11:36)
[2019-08-29 06:52] LABS: Glucose,Whole Blood 102 mg/dL (75-99)
[2019-08-29 06:58] LABS: Calcium 8.1 mg/dL (8.4-10.2); Phosphorus 4.4 mg/dL (2.5-4.5)
[2019-08-29] MEDS: INSULIN DETEMIR (LEVEMIR) 100 UNIT/ML SYR SQ SCH (06:59)
[2019-08-29] MEDS: SENNOSIDES-DOCUSATE SODIUM 1 EACH TAB PO SCH ×2 (08:37→21:39)
[2019-08-29] MEDS: POTASSIUM CHLORIDE ER 20 MEQ TAB.ER PO SCH (08:37)
[2019-08-29] MEDS: METOPROLOL TARTRATE 50 MG TAB PO SCH ×2 (08:37→21:38)
[2019-08-29] MEDS: CLOPIDOGREL 75 MG TAB PO SCH (08:38)
[2019-08-29] MEDS: FUROSEMIDE 40 MG TAB PO SCH ×2 (08:38→15:43)
[2019-08-29] MEDS: ATORVASTATIN 40 MG TAB PO SCH (08:38)
[2019-08-29] MEDS: DICLOFENAC SODIUM GEL 100 GM TUBE TOPICAL SCH ×4 (08:38→21:35)
[2019-08-29] MEDS: LOSARTAN 50 MG TAB PO SCH (08:39)
[2019-08-29] MEDS: SERTRALINE 100 MG TAB PO SCH (10:32)
[2019-08-29 11:35] LABS: Glucose,Whole Blood 193 mg/dL (75-99)
[2019-08-29] MEDS: MAGNESIUM OXIDE 400 MG TAB PO SCH (12:22)
--- NOTE | 2019-08-29 13:35 | PN ---
PROGRESS NOTE Travis is a 79-year-old gentleman who was admitted to hospital for elective surgery and he underwent cardiac catheterization and angioplasty of proximal LAD and circumflex coronary artery, required stenting of the left iliac artery. This morning, patient is doing well. He denies any chest pain or difficulty in breathing. Creatinine has increased to 1.7. The patient is currently on aspirin, Lipitor, Plavix, Lasix 40 mg b.i.d., Cozaar 50 mg daily, Coumadin has been resumed. On exam, comfortable at rest. Vital signs are stable. There is no jugular venous distention. Chest exam reveals good air entry bilaterally. Heart exam reveals first and second heart sounds. Has a systolic murmur . Abdomen is soft. Exam of the extremities reveals mild edema. Peripheral pulses are felt. Right groin shows severe ecchymoses with mild hematoma. No pulsatile masses. No bruit. Foot pulses are intact. ASSESSMENT: 1. Coronary artery disease status post multivessel angioplasty. 2. Status post stenting of the left iliac artery. 3. Acute renal insufficiency, probably due to contrast induced nephropathy. The patient will be discharged home tomorrow. MMODL / IJN: [id number] /
[2019-08-29 17:00] LABS: Glucose,Whole Blood 91 mg/dL (75-99)
[2019-08-29] MEDS ORDERED: WARFARIN 2.5 MG TAB PO SCH (18:00)
[2019-08-29] MEDS: ONDANSETRON 4 MG/2 ML VIAL IVP PRN (21:15)
[2019-08-29 21:29] LABS: Glucose,Whole Blood 96 mg/dL (75-99)
--- NOTE | 2019-08-29 21:33 | P.PN ---
Progress Note - Text Progress Note Date: 08/29/19 History of presenting complaint: This is a 79-year-old patient of Dr. Yosvany harper chronic stable medical conditions include diabetes, hyperlipidemia, hypertension, fibromyalgia, right- sided weakness from prior stroke and peripheral neuropathy. CHF with EF of 30- 35% underlying atrial fibrillation. States that previously also's had a lumbar L3-L4 epidural abscess , carotid artery disease with prior stent, depression uses a walker to baseline COPD presbyesophagus causing chronic dysphagia. Patient and his had been in [place]. Patient having episodes of shortness of breath. After further cardiac workup he was advised coronary bypass. Patient and family decided to call Dr. BEN Gardner and decided to bring him back to [place]. Today patient underwent cardiac catheterization and was found critical stenosis of LAD 90%, obtuse marginal same and circumflex. Successful intervention was done to the LAD and obtuse marginal. Circumflex will be intermittent in the future. Patient also lateral up having left iliac artery dissection and Dr. Mcfadden to carry out an urgent stenting. Patient was seen by me in the ICU this evening. is present at the bedside. Hemodynamically stable. No chest pain no shortness of breath. Today-feeling better. Laying in bed. No chest pain. Slept well last night. Creatinine bumped up to 1.7. Review of systems: Was done for constitutional, cardiovascular, GI, pulmonary. relevant finding as above Active Medications Al Hydroxide/Mg Hydroxide (Maalox) 30 ml PO Q4HR PRN PRN Reason: Heartburn Last Admin: 08/29/19 19:36 Dose: 30 ml Documented by: Albuterol/Ipratropium (Duoneb 0.5 Mg-3 Mg/3 Ml Soln) 3 ml INHALATION RT-TID PRN PRN Reason: Shortness Of Breath Last Admin: 08/28/19 00:36 Dose: 3 ml Documented by: Alprazolam (Xanax) 0.25 mg PO Q6HR PRN PRN Reason: Mild Anxiety Alprazolam (Xanax) 0.5 mg PO Q6HR PRN PRN Reason: Moderate Anxiety Aspirin (Aspirin) 81 mg PO HS [facility] Last Admin: 08/28/19 21:13 Dose: 81 mg Documented by: Atorvastatin Calcium (Lipitor) 40 mg PO DAILY [facility] Last Admin: 08/29/19 08:38 Dose: 40 mg Documented by: Atropine Sulfate (Atropine) 0.5 mg IV ONCE PRN PRN Reason: Symptomatic Bradycardia Clopidogrel Bisulfate (Plavix) 75 mg PO DAILY [facility] Last Admin: 08/29/19 08:38 Dose: 75 mg Documented by: Cyclobenzaprine HCl (Flexeril) 10 mg PO TID PRN PRN Reason: Pain Last Admin: 08/28/19 21:13 Dose: 10 mg Documented by: Diclofenac Sodium (Voltaren Gel) 2 gm TOPICAL QID [facility] Last Admin: 08/29/19 17:28 Dose: 2 gm Documented by: Fluticasone Propionate (Flonase Nasal [place]) 2 spray EA NOSTRIL DAILY PRN PRN Reason: Allergy Symptoms Furosemide (Lasix) 40 mg PO BID@0900,1600 [facility] Last Admin: 08/29/19 15:43 Dose: 40 mg Documented by: Hydroxyzine HCl (Atarax) 25 mg PO TID PRN PRN Reason: Itching Sodium Chloride (Saline 0.9%) 1,000 mls @ 50 mls/hr IV .Q20H [facility] Last Admin: 08/29/19 11:36 Dose: 50 mls/hr Documented by: Insulin Aspart (Novolog) 0 unit SQ ACHS [facility]; Protocol Last Admin: 08/29/19 21:28 Dose: Not Given Documented by: Insulin Detemir (Levemir) 56 unit SQ DAILY@0700 [facility] Last Admin: 08/29/19 06:59 Dose: 56 unit Documented by: Losartan Potassium (Cozaar) 50 mg PO DAILY [facility] Last Admin: 08/29/19 08:39 Dose: 50 mg Documented by: Magnesium Oxide (Mag-Ox) 400 mg PO DAILY@1200 [facility] Last Admin: 08/29/19 12:22 Dose: 400 mg Documented by: Melatonin (Melatonin) 3 mg PO HS [facility] Last Admin: 08/28/19 21:13 Dose: 3 mg Documented by: Methadone HCl (Dolophine) 5 mg PO Q8H [facility] Last Admin: 08/29/19 15:43 Dose: 5 mg Documented by: Metoprolol Tartrate (Lopressor) 50 mg PO BID [facility] Last Admin: 08/29/19 08:37 Dose: 50 mg Documented by: Miscellaneous Information (Coumadin Per Pharmacy) 0 each MISCELLANE DIRECTED PRN PRN Reason: PHARMACY ON THE CASE Miscellaneous Information (Potassium Per Protocol) 1 each MISCELLANE DAILY PRN; Protocol PRN Reason: Per Protocol Miscellaneous Information (Magnesium Per Protocol) 1 each MISCELLANE DAILY PRN; Protocol PRN Reason: Per Protocol Miscellaneous Information (Phosphorus Per Protocol) 1 each MISCELLANE DAILY PRN; Protocol PRN Reason: Per Protocol Montelukast Sodium (Singulair) 10 mg PO HS [facility] Last Admin: 08/28/19 21:13 Dose: 10 mg Documented by: Nitroglycerin (Nitrostat) 0.4 mg SUBLINGUAL Q5M PRN PRN Reason: Chest Pain Ondansetron HCl (Zofran) 4 mg IVP Q6HR PRN PRN Reason: Nausea And Vomiting Last Admin: 08/29/19 21:15 Dose: 4 mg Documented by: Pantoprazole Sodium (Protonix) 40 mg PO TID PRN PRN Reason: Heartburn Potassium Chloride (K-Dur 20) 40 meq PO QAM [facility] Last Admin: 08/29/19 08:37 Dose: 40 meq Documented by: Senna/Docusate Sodium (Senokot-S) 2 each PO BID [facility] Last Admin: 08/29/19 08:37 Dose: 2 each Documented by: Sertraline HCl (Zoloft) 100 mg PO DAILY [facility] Last Admin: 08/29/19 10:32 Dose: 100 mg Documented by: Triamcinolone Acetonide (Kenalog) 1 applic TOPICAL BID PRN PRN Reason: Itching Warfarin Sodium (Coumadin) 2.5 mg PO DAILY@1800 [facility]; Protocol Last Admin: 08/29/19 17:27 Dose: 2.5 mg Documented by: Zolpidem Tartrate (Ambien) 5 mg PO HS PRN PRN Reason: Insomnia Physical examination: VITAL SIGNS: 97.7, 95, 18, 120/88, 92% room air GENERAL: Laying in bed, comfortable EYES: Pupils equal. Conjunctiva pale. HEENT: External appearance of nose and ears normal, oral cavity grossly normal, decreased hearing. NECK: JVD unable to assess, mass not palpable. HEART: Heart sounds irregular; no edema. LUNGS: Respiratory rate normal; decreased breath sounds. ABDOMEN: Soft, nontender, liver spleen not palpable, no masses palpable. Patient has a FemoStop in the left groin PSYCH: Alert and oriented x3; mood and affect anxious. NEUROLOGICAL: Cranial nerves grossly intact; no facial asymmetry, decreased power of the right side. INVESTIGATIONS, reviewed in the clinical context: White count 9.3 hemoglobin 12.7 potassium 4 bun 40 creatinine 1.7 to Previous labs: White count 9.5 hemoglobin 17 White count 10.2 hemoglobin 13.2 potassium 3.8 crit 1.18 sodium 1:30 Assessment: -Coronary artery disease with successful stenting to the obtuse marginal and LAD. 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 Plan: -Discussed with the patient and the . Like to keep him for another 24 hours to make sure there creatinine doesn't get any worse. We'll gently hydrate the patient at 50 mL an hour. Patient is on Lasix and ARB. Other medications to continue. Repeat labs in the morning. Did inform Dr. David Ruiz
[2019-08-29] MEDS: MELATONIN 3 MG TABLET PO SCH (21:38)
[2019-08-29] MEDS: MONTELUKAST 10 MG TAB PO SCH (21:38)
[2019-08-29] MEDS: ASPIRIN 81 MG PO SCH (21:38)
[2019-08-30] MEDS: ONDANSETRON 4 MG/2 ML VIAL IVP PRN (04:49)
[2019-08-30 05:20] LABS: Potassium 4.3 mmol/L (3.5-5.1)
[2019-08-30 05:27] LABS: INR 1.3 (<1.2); Prothrombin Time 13.1 sec (9.0-12.0)
[2019-08-30 07:02] LABS: Glucose,Whole Blood 74 mg/dL (75-99)
[2019-08-30] MEDS: INSULIN ASPART (NovoLOG) 100 UNIT/ML VIAL SQ SCH (07:20)
[2019-08-30] MEDS: SODIUM CHLORIDE 0.9% 1,000 ML IV SCH (07:21)
[2019-08-30] MEDS: INSULIN DETEMIR (LEVEMIR) 100 UNIT/ML SYR SQ SCH (08:42)
[2019-08-30] MEDS: METHADONE 5 MG TAB PO SCH (08:43)
[2019-08-30] MEDS: ATORVASTATIN 40 MG TAB PO SCH (08:44)
[2019-08-30] MEDS: METOPROLOL TARTRATE 50 MG TAB PO SCH (08:44)
[2019-08-30] MEDS: CLOPIDOGREL 75 MG TAB PO SCH (08:44)
[2019-08-30] MEDS: SERTRALINE 100 MG TAB PO SCH (08:45)
[2019-08-30] MEDS: FUROSEMIDE 40 MG TAB PO SCH (08:45)
[2019-08-30] MEDS: POTASSIUM CHLORIDE ER 20 MEQ TAB.ER PO SCH (08:46)
[2019-08-30] MEDS: SENNOSIDES-DOCUSATE SODIUM 1 EACH TAB PO SCH (08:46)
[2019-08-30] MEDS: DICLOFENAC SODIUM GEL 100 GM TUBE TOPICAL SCH (08:48)
[2019-08-30] MEDS ORDERED: LOSARTAN 25 MG TAB PO SCH (09:00)
[2019-08-30 09:58] VITALS: BP 109/82; PULSE 89; RESP 16; TEMP 98.1
--- NOTE | 2019-08-30 10:03 | PN ---
PROGRESS NOTE Mr. Flores is a gentleman who underwent an Impella procedure about 3 days ago. He also had a dissection of the left iliac artery and had stenting of that as well. He was scheduled to be discharged yesterday but then his creatinine went up to 1.7 and therefore discharge was held. He was cautiously hydrated. His creatinine is back down to 1.39 today. His INR is low at 1.3. He has chronic atrial fibrillation. However, he is now on aspirin and Plavix. I am going to leave him on Coumadin at a standard dose of 2.5 mg daily. He can be discharged today on aspirin 81 mg daily, Plavix 75 mg daily. Resume all his other medications, but Coumadin will be at a steady dose of 2.5 mg daily. PHYSICAL EXAMINATION: He remains in atrial fib and rate control is good. Blood pressure is 112/70, pulse rate is about 84 per minute irregular, JVD 1 cm, no carotid bruit, S1-S2 heard normally, short systolic murmur noted. Lungs are clear. Abdomen is soft, nontender. Lower extremities reveal ecchymosis in the right groin. No significant hematoma. Left groin is clean and dry. Lower extremity pulses are palpable. IMPRESSION: 1. Status post percutaneous coronary intervention of left anterior descending and circumflex with Impella support. 2. Stenting of left iliac artery. 3. Chronic atrial fibrillation. 4. Ischemic cardiomyopathy. 5. Type 2 diabetes mellitus with mild chronic kidney disease. 6. History of previous cerebrovascular accident with right-sided residual deficits. RECOMMENDATIONS: Patient will be a discharged today and I will see him in the office within 1 week. Discharge instructions regarding activity, diet and medications were given. Prescriptions were provided. MMODL / IJN: [id number] /
--- NOTE | 2019-08-30 23:08 | P.DS ---
Providers Date of admission: 08/26/19 08:09 Expected date of discharge: 08/30/19 Attending physician: Ephraim Underwood Consults: 08/27/19 09:08 Consult Physician Routine Consulting Provider: Ephraim Underwood Consult Reason/Comments: medical managment Do you want consulting provider notified?: Yes 08/27/19 15:25 Consult Physician Routine Consulting Provider: [facility] Consult Reason/Comments: Post Interventional patient Do you want consulting provider notified?: Already Contacted Primary care physician: Yosvany Escalona [facility] Course: History of presenting complaint: This is a 79-year-old patient of Dr. Yosvany harper chronic stable medical conditions include diabetes, hyperlipidemia, hypertension, fibromyalgia, right- sided weakness from prior stroke and peripheral neuropathy. CHF with EF of 30- 35% underlying atrial fibrillation. States that previously also's had a lumbar L3-L4 epidural abscess , carotid artery disease with prior stent, depression uses a walker to baseline COPD presbyesophagus causing chronic dysphagia. Patient and his had been in [place]. Patient having episodes of shortness of breath. After further cardiac workup he was advised coronary bypass. Patient and family decided to call Dr. BEN Gardner and decided to bring him back to [place]. Today patient underwent cardiac catheterization and was found critical stenosis of LAD 90%, obtuse marginal same and circumflex. Successful intervention was done to the LAD and obtuse marginal. Circumflex will be intermittent in the future. Patient also lateral up having left iliac artery dissection and Dr. Mcfadden to carry out an urgent stenting. Patient was seen by me in the ICU this evening. is present at the bedside. Hemodynamically stable. No chest pain no shortness of breath. Patient did go into acute kidney injury with a creatinine jumping from 0.8-1.7. Patient was gently hydrated. Dose of Cozaar and Lasix was cut back. Today-feeling much better today. Creatinine down to 1.3. Care was discussed with the patient. Consultation: Dr. David Ruiz from cardiogenic Dr. BEN Gardner from interventional cardiology Physical examination: VITAL SIGNS: 98.1, 89, 16, 100/82, 97% on room air GENERAL: Laying in bed, comfortable EYES: Pupils equal. Conjunctiva pale. HEENT: External appearance of nose and ears normal, oral cavity grossly normal, decreased hearing. NECK: JVD unable to assess, mass not palpable. HEART: Heart sounds irregular; no edema. LUNGS: Respiratory rate normal; decreased breath sounds. ABDOMEN: Soft, nontender, liver spleen not palpable, no masses palpable. PSYCH: Alert and oriented x3; mood and affect anxious. NEUROLOGICAL: Cranial nerves grossly intact; no facial asymmetry, decreased power of the right side. INVESTIGATIONS, reviewed in the clinical context: Potassium 4.3 creatinine 1.39 White count 9.3 hemoglobin 12.7 Previous labs: White count 9.5 hemoglobin 17 White count 10.2 hemoglobin 13.2 potassium 3.8 crit 1.18 sodium 1:30 Assessment: -Coronary artery disease with successful stenting to the obtuse marginal and LAD. 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 Disposition: Home Labs: CBC BMP-and 5 days. Patient Condition at Discharge: Stable Plan - Discharge Summary Discharge Rx Participant: Yes New Discharge Prescriptions: New Losartan [Cozaar] 25 mg PO DAILY #30 tab Atorvastatin [Lipitor] 40 mg PO DAILY #30 tab Clopidogrel [Plavix] 75 mg PO DAILY #30 tab Continue Triamcinolone 0.1% Cream [Kenalog 0.1% Cream] 1 applic TOPICAL BID PRN PRN Reason: Itching Methadone [Dolophine] 5 mg PO Q8H #9 tab Omeprazole [PriLOSEC] 20 mg PO TID PRN PRN Reason: Heartburn Magnesium Oxide [Mag-Ox] 250 mg PO DAILY Vitamin E 100 unit PO DAILY@1200 Sertraline [Zoloft] 100 mg PO DAILY Nitroglycerin Sl Tabs [Nitrostat] 0.4 mg SUBLINGUAL Q5M PRN PRN Reason: Chest Pain Montelukast [Singulair] 10 mg PO HS Ipratropium-Albuterol Nebulize [Duoneb 0.5 mg-3 mg/3 ml Soln] 3 ml INHALATION RT-TID PRN PRN Reason: Shortness Of Breath hydrOXYzine HCL [Atarax] 25 mg PO TID PRN PRN Reason: Itching Fluticasone Nasal [place] [Flonase Nasal [place]] 2 spr EA NOSTRIL DAILY PRN PRN Reason: Allergy Symptoms Eye Vitamin 1 tab PO DAILY Diclofenac Sodium [Voltaren Gel] 2 gram TOPICAL QID Cyclobenzaprine [Flexeril] 10 mg PO TID PRN PRN Reason: Pain Cyanocobalamin (Vitamin B-12) [Vitamin B-12] 1,000 mcg PO DAILY@1200 Metoprolol Tartrate [Lopressor] 50 mg PO BID #60 tab Sennosides-Docusate Sodium [Senokot-S] 2 each PO BID #60 tab Aspirin EC [Ecotrin Low Dose] 81 mg PO HS #0 Melatonin 3 mg PO HS tablet Potassium Chloride ER [K-Dur 20] 40 meq PO BID Insulin Glargine,Hum.rec.anlog [Toujeo Solostar] 56 units SQ DAILY Changed Furosemide [Lasix] 40 mg PO BID@0900,1600 #60 tablet Discontinued Doxycycline [Vibramycin] 100 mg PO BID 3 Days #5 capsule No Action Warfarin Sodium 4 mg PO HS Discharge Medication List Triamcinolone 0.1% Cream [Kenalog 0.1% Cream] 1 applic TOPICAL BID PRN 07/08/17 [History] Methadone [Dolophine] 5 mg PO Q8H #9 tab 09/13/17 [Rx] Omeprazole [PriLOSEC] 20 mg PO TID PRN 09/20/17 [History] Cyanocobalamin (Vitamin B-12) [Vitamin B-12] 1,000 mcg PO DAILY@1200 10/31/18 [History] Cyclobenzaprine [Flexeril] 10 mg PO TID PRN 10/31/18 [History] Diclofenac Sodium [Voltaren Gel] 2 gram TOPICAL QID 10/31/18 [History] Eye Vitamin 1 tab PO DAILY 10/31/18 [History] Fluticasone Nasal [place] [Flonase Nasal [place]] 2 spr EA NOSTRIL DAILY PRN 10/31/18 [History] Ipratropium-Albuterol Nebulize [Duoneb 0.5 mg-3 mg/3 ml Soln] 3 ml INHALATION RT-TID PRN 10/31/18 [History] Magnesium Oxide [Mag-Ox] 250 mg PO DAILY 10/31/18 [History] Montelukast [Singulair] 10 mg PO HS 10/31/18 [History] Nitroglycerin Sl Tabs [Nitrostat] 0.4 mg SUBLINGUAL Q5M PRN 10/31/18 [History] Sertraline [Zoloft] 100 mg PO DAILY 10/31/18 [History] Vitamin E 100 unit PO DAILY@1200 10/31/18 [History] hydrOXYzine HCL [Atarax] 25 mg PO TID PRN 10/31/18 [History] Aspirin EC [Ecotrin Low Dose] 81 mg PO HS #0 11/08/18 [Rx] Melatonin 3 mg PO HS tablet 11/08/18 [Rx] Metoprolol Tartrate [Lopressor] 50 mg PO BID #60 tab 11/08/18 [Rx] Sennosides-Docusate Sodium [Senokot-S] 2 each PO BID #60 tab 11/08/18 [Rx] Insulin Glargine,Hum.rec.anlog [Toujeo Solostar] 56 units SQ DAILY 08/23/19 [History] Potassium Chloride ER [K-Dur 20] 40 meq PO BID 08/23/19 [History] Warfarin Sodium 4 mg PO HS 08/23/19 [History] Atorvastatin [Lipitor] 40 mg PO DAILY #30 tab 08/30/19 [Rx] Clopidogrel [Plavix] 75 mg PO DAILY #30 tab 08/30/19 [Rx] Furosemide [Lasix] 40 mg PO BID@0900,1600 #60 tablet 08/30/19 [Rx] Losartan [Cozaar] 25 mg PO DAILY #30 tab 08/30/19 [Rx] Follow up Appointment(s)/Referral(s): Aruna Gardner MD [STAFF PHYSICIAN] - 09/05/19 12:00 pm [facility], [NON-STAFF] - 1-2 Days Yosvany Escalona MD [Primary Care Provider] - 09/05/19 4:00 pm Patient Instructions/Handouts: *Surgery [facility] - After Heart Catheterization - Radiographer Instructions, Heart Catheterization (GEN) Discharge Disposition: HOME SELF-CARE
--- NOTE | 2019-09-02 15:05 | CDI ---
Documentation Clarification Form Date: 09/02/19 From: Janey Lucia CCS Phone: If you have a question about this query, please contact Alison Lopez, Outpatient Physical Therapist at [phone] between 8am and 5pm. Admit Date: 08/26/19 Discharge Date:08/30/19 Patient Name: Travis Flores Visit Number: [id number] ATTENTION: The Clinical Documentation Specialists (CDI) and [facility] Coding Staff appreciate your assistance in clarifying documentation. Please respond to the clarification below the line at the bottom and electronically sign. The CDI & [facility] Coding staff will review the response and follow-up if needed. Please note: Queries are made part of the Legal Health Record. If you have any questions, please contact the author of this message via ITS. Dear Dr. Gardner, The patient presented with CAD. PTCA note documents: I noted that there was a heavily calcified plaque with a dissection in the iliac artery.At this point, I decided to request Dr. Mcfadden's assistance.I then went from the right femoral approach and advanced and positioned a 6-Macedonian introducer under fluoroscopic guidance.This sheath was securely placed.Dr. Mcfadden came in and I assisted him in the intervention of left iliac artery, where a stent was placed with excellent result. H&P and PNs document: Acute blood loss anemia secondary to blood loss from iliac artery dissection -Acute iatrogenic iliac artery dissection, with stent placement. PN 08/27 documents: His procedure was complicated by dissection of the iliac artery for which he underwent stenting by Dr. Mcfadden. History/Risk Factors: CAD, Hx CVA, CHF, AFIB, DM, Obesity Clinical Indicators: Iliac artery dissection, In your professional opinion, can you please clarify if iliac artery dissection is Complication of procedure Expected outcome of procedure Other, please specify Unable to determine Complication of procedure, rare but expected in calcified vessels. MTDD
== END 2019-08-30 12:05 | disposition home health service (06) | DRG 215 ==
LOC: CATHCVL 06:30 → 3SCARD 08:09 → 2SICU 08-27 11:52
PROVIDERS: ADMIT Hospitalist; ATTEND Hospitalist
PROC: B2101ZZ Fluoroscopy of Single Coronary Artery using Low Osmolar Contrast (ICD-10-PCS; 2019-08-26)
PROC: 4A023N7 Measurement of Cardiac Sampling and Pressure, Left Heart, Percutaneous Approach (ICD-10-PCS; 2019-08-26)
PROC: 5A0221D Assistance with Cardiac Output using Impeller Pump, Continuous (ICD-10-PCS; principal; 2019-08-27 10:30)
PROC: 027135Z Dilation of Coronary Artery, Two Arteries with Two Drug-eluting Intraluminal Devices, Percutaneous Approach (ICD-10-PCS; principal; 2019-08-27 10:30)
PROC: 04H Lower Arteries, Insertion (ICD-10-PCS; principal; 2019-08-27 10:30)
PROC: 02HA3RJ Insertion of Short-term External Heart Assist System into Heart, Intraoperative, Percutaneous Approach (ICD-10-PCS; principal; 2019-08-27 10:30)
DX: I25.10 Atherosclerotic heart disease of native coronary artery without angina pectoris (principal); I77.72 Dissection of iliac artery; I69.351 Hemiplegia and hemiparesis following cerebral infarction affecting right dominant side; I13.0 Hypertensive heart and chronic kidney disease with heart failure and stage 1 through stage 4 chronic kidney disease, or unspecified chronic kidney disease; I97.88 Other intraoperative complications of the circulatory system, not elsewhere classified; I48.19 Other persistent atrial fibrillation; T82.855A Stenosis of coronary artery stent, initial encounter; I50.22 Chronic systolic (congestive) heart failure; N17.9 Acute kidney failure, unspecified; I48.92 Unspecified atrial flutter; E87.1 Hypo-osmolality and hyponatremia; D62 Acute posthemorrhagic anemia; J44.9 Chronic obstructive pulmonary disease, unspecified; E11.22 Type 2 diabetes mellitus with diabetic chronic kidney disease; I95.89 Other hypotension; E11.649 Type 2 diabetes mellitus with hypoglycemia without coma; E66.9 Obesity, unspecified; Z68.35 Body mass index [BMI] 35.0-35.9, adult; Z79.4 Long term (current) use of insulin; E11.42 Type 2 diabetes mellitus with diabetic polyneuropathy; M79.7 Fibromyalgia; K44.9 Diaphragmatic hernia without obstruction or gangrene; K22.8 Other specified diseases of esophagus; N18.2 Chronic kidney disease, stage 2 (mild); E78.5 Hyperlipidemia, unspecified; M51.26 Other intervertebral disc displacement, lumbar region; F32.9 Major depressive disorder, single episode, unspecified; R26.9 Unspecified abnormalities of gait and mobility; M19.90 Unspecified osteoarthritis, unspecified site; K21.9 Gastro-esophageal reflux disease without esophagitis; I25.5 Ischemic cardiomyopathy; H40.9 Unspecified glaucoma; G89.29 Other chronic pain; N14.1 Nephropathy induced by other drugs, medicaments and biological substances; T50.8X5A Adverse effect of diagnostic agents, initial encounter; R13.10 Dysphagia, unspecified; Z79.899 Other long term (current) drug therapy; Z79.01 Long term (current) use of anticoagulants; Z86.61 Personal history of infections of the central nervous system; Z87.891 Personal history of nicotine dependence; Z95.828 Presence of other vascular implants and grafts; Z87.01 Personal history of pneumonia (recurrent); Z87.898 Personal history of other specified conditions; Z98.42 Cataract extraction status, left eye; Z98.41 Cataract extraction status, right eye; Z88.2 Allergy status to sulfonamides; Z80.42 Family history of malignant neoplasm of prostate
CPT/HCPCS: 33990; 37221; 80048; 83735; 84100; 84132; 85025; 85347; 85610; 93458; 94640

== ENCOUNTER 2019-09-02 12:41 | Inpatient (IN) | payer MEDICARE, BC ==
--- NOTE | 2019-09-02 13:08 | ED ---
General Adult HPI - General Chief complaint: Shortness of Breath Stated complaint: REGAN, Time Seen by Provider: 09/02/19 12:54 Source: patient, family Mode of arrival: EMS Limitations: no limitations - History of Present Illness Initial comments: Dictation was produced using [employer] dictation software. please excuse any grammatical, word or spelling errors. This patient was cared for during a federal and state declared state of emergency secondary to Covid 19 Chief Complaint: 79-year-old male presents with shortness of breath. History of recent iliac stent and intra cath intra-aortic balloon pump support. History of Present Illness: 79-year-old male U was instructed to call him to the emergency department by anthropology lecturer. Monday of last week patient had intra- aortic balloon pump and iliac artery stent placed. Patient has chronic history of heart failure. The last 48 hours patient has been having worsening shortness of breath is worse with lying flat and with exertion. Denies any cough. No fever, chills or night sweats. He feels well when he sitting up at rest. Call his anthropology lecturer earlier today and was instructed to take 80 mg of Lasix. A milligrams of Lasix was administered however patient's symptoms did not improve. Denies any chest pain. No lower extremity pain. Patient does take Coumadin. The ROS documented in this emergency department record has been reviewed and confirmed by me. Those systems with pertinent positive or negative responses have been documented in the HPI. All other systems are other negative and/or noncontributory. PHYSICAL EXAM: General Impression: Alert and oriented x3, not in acute distress HEENT: Normocephalic atraumatic, extra-ocular movements intact, pupils equal and reactive to light bilaterally, mucous membranes moist. Cardiovascular: Heart regular rate and rhythm Chest: Able to completely 3/as is, no retractions mild crackling Abdomen: abdomen soft, non-tender, non-distended, no organomegaly Musculoskeletal: Pulses present and equal in all extremities, no peripheral edema Motor: no focal deficits noted Neurological: CN II-XII grossly intact, no focal motor or sensory deficits noted Skin: Intact with no visualized rashes Psych: Normal affect and mood ED course: 79-year-old male with extensive heart history. Monday patient had iliac stent placed for iliac artery dissection and impella device. Patient has long-standing history of congestive heart failure. Vital signs upon arrival shows heart rate of 113, blood pressure 130/79, worse vital signs within acceptable limits.Laboratory evaluation obtained. CBC unremarkable. Coag panel shows INR 1.4. Metabolic panel shows findings within acceptable limits. Troponin 0.145. This appears to be lower the patient's baseline. bnp elevated at 8400. Chest x-ray shows cardiomegaly however no significant changes. Clinical presentation concerning for mild CHF exacerbation. Patient given Lasix. Patient be admitted to Dr. Underwood's service with consultation to cardiology. Patient feels well on reevaluation the bedside. Patient and family member are in agreement with disposition. EKG interpretation: Ventricular rate 103, A. fib with RVR, QRS 140, QTc 539. No SD prolongation, no ST or T-wave changes noted. EKG compared to 10/31/2018 showing no changes. Overall, this EKG is unremarkable - Related Data Home Medications Medication Instructions Recorded Confirmed Triamcinolone 0.1% Cream [Kenalog 1 applic TOPICAL BID PRN 07/08/17 08/26/19 0.1% Cream] Omeprazole [PriLOSEC] 20 mg PO TID PRN 09/20/17 08/26/19 Cyanocobalamin (Vitamin B-12) 1,000 mcg PO DAILY@1200 10/31/18 08/26/19 [Vitamin B-12] Cyclobenzaprine [Flexeril] 10 mg PO TID PRN 10/31/18 08/26/19 Diclofenac Sodium [Voltaren Gel] 2 gram TOPICAL QID 10/31/18 08/26/19 Eye Vitamin 1 tab PO DAILY 10/31/18 08/26/19 Fluticasone Nasal [place] [Flonase 2 spr EA NOSTRIL DAILY PRN 10/31/18 08/26/19 Nasal [place]] Ipratropium-Albuterol Nebulize 3 ml INHALATION RT-TID PRN 10/31/18 08/26/19 [Duoneb 0.5 mg-3 mg/3 ml Soln] Magnesium Oxide [Mag-Ox] 250 mg PO DAILY 10/31/18 08/26/19 Montelukast [Singulair] 10 mg PO HS 10/31/18 08/26/19 Nitroglycerin Sl Tabs [Nitrostat] 0.4 mg SUBLINGUAL Q5M PRN 10/31/18 08/26/19 Sertraline [Zoloft] 100 mg PO DAILY 10/31/18 08/26/19 Vitamin E 100 unit PO DAILY@1200 10/31/18 08/26/19 hydrOXYzine HCL [Atarax] 25 mg PO TID PRN 10/31/18 08/26/19 Insulin Glargine,Hum.rec.anlog 56 units SQ DAILY 08/23/19 08/26/19 [Toujeo Solostar] Potassium Chloride ER [K-Dur 20] 40 meq PO BID 08/23/19 08/26/19 Warfarin Sodium 4 mg PO HS 08/23/19 08/26/19 Previous Rx's Medication Instructions Recorded Methadone [Dolophine] 5 mg PO Q8H #9 tab 09/13/17 Aspirin EC [Ecotrin Low Dose] 81 mg PO HS #0 11/08/18 Melatonin 3 mg PO HS tablet 11/08/18 Metoprolol Tartrate [Lopressor] 50 mg PO BID #60 tab 11/08/18 Sennosides-Docusate Sodium 2 each PO BID #60 tab 11/08/18 [Senokot-S] Atorvastatin [Lipitor] 40 mg PO DAILY #30 tab 08/30/19 Clopidogrel [Plavix] 75 mg PO DAILY #30 tab 08/30/19 Furosemide [Lasix] 40 mg PO BID@0900,1600 #60 tablet 08/30/19 Losartan [Cozaar] 25 mg PO DAILY #30 tab 08/30/19 Allergies Allergy/AdvReac Type Severity Reaction Status Date / Time Sulfa (Sulfonamide Allergy Rash/Hives Verified 09/02/19 12:51 Antibiotics) Review of Systems ROS Statement: Those systems with pertinent positive or pertinent negative responses have been documented in the HPI. ROS Other: All systems not noted in ROS Statement are negative. 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 History of Any Multi-Drug Resistant Organisms: None Reported Past Surgical History: Back Surgery, Heart Catheterization With Stent, Orthopedic Surgery, Prostate Surgery Additional Past Surgical History / Comment(s): unsuccessful cardioversion in 2017, endoscopic sinus surgery/polypectomy, colonoscopy, TURP, bilateral hydrocelectomy, rt elbow surgery, toñito cataracts, laminectomy Past Anesthesia/Blood Transfusion Reactions: No Reported Reaction Date of Last Stent Placement:: 2001 Past Psychological History: Anxiety, Depression Smoking Status: Former smoker - Past Family History Mother Family Medical History: No Reported History Father Family Medical History: Cancer Additional Family Medical History / Comment(s): Father had prostrate cancer. General Exam Limitations: no limitations Course Vital Signs 09/02/19 09/02/19 09/02/19 12:45 13:30 13:34 Temperature 98.2 F Pulse Rate 113 H 104 H Respiratory 18 20 20 Rate Blood Pressure 130/79 111/86 O2 Sat by Pulse 95 97 Oximetry 09/02/19 15:00 Temperature Pulse Rate 110 H Respiratory 18 Rate Blood Pressure 141/86 O2 Sat by Pulse 98 Oximetry Medical Decision Making - Lab Data Result diagrams: 09/02/19 13:12 09/02/19 13:12 Lab Results 09/02/19 09/02/19 09/02/19 Range/Units 13:12 13:12 13:12 WBC 10.3 (3.8-10.6) k/uL RBC 4.50 (4.30-5.90) m/uL Hgb 13.6 (13.0-17.5) gm/dL Hct 41.8 (39.0-53.0) % MCV 92.8 (80.0-100.0) fL MCH 30.3 (25.0-35.0) pg MCHC 32.6 (31.0-37.0) g/dL RDW 14.1 (11.5-15.5) % Plt Count 228 (150-450) k/uL Neutrophils % 82 % Lymphocytes % 8 % Monocytes % 5 % Eosinophils % 3 % Basophils % 0 % Neutrophils # 8.4 H (1.3-7.7) k/uL Lymphocytes # 0.8 L (1.0-4.8) k/uL Monocytes # 0.5 (0-1.0) k/uL Eosinophils # 0.3 (0-0.7) k/uL Basophils # 0.0 (0-0.2) k/uL PT 13.8 H (9.0-12.0) sec INR 1.4 H (<1.2) APTT 22.9 (22.0-30.0) sec Sodium 134 L (137-145) mmol/L Potassium 4.2 (3.5-5.1) mmol/L Chloride 89 L (98-107) mmol/L Carbon Dioxide 36 H (22-30) mmol/L Anion Gap 9 mmol/L BUN 32 H (9-20) mg/dL Creatinine 0.99 (0.66-1.25) mg/dL Est GFR (CKD-EPI)AfAm 85 (>60 ml/min/1.73 sqM) Est GFR (CKD-EPI)NonAf 73 (>60 ml/min/1.73 sqM) Glucose 226 H (74-99) mg/dL Calcium 8.5 (8.4-10.2) mg/dL Magnesium 1.9 (1.6-2.3) mg/dL Total Bilirubin 0.9 (0.2-1.3) mg/dL AST 32 (17-59) U/L ALT 18 (4-49) U/L Alkaline Phosphatase 77 (38-126) U/L Troponin I (0.000-0.034) ng/mL NT-Pro-B Natriuret Pep pg/mL Total Protein 6.7 (6.3-8.2) g/dL Albumin 3.6 (3.5-5.0) g/dL 09/02/19 09/02/19 Range/Units 13:12 13:12 WBC (3.8-10.6) k/uL RBC (4.30-5.90) m/uL Hgb (13.0-17.5) gm/dL Hct (39.0-53.0) % MCV (80.0-100.0) fL MCH (25.0-35.0) pg MCHC (31.0-37.0) g/dL RDW (11.5-15.5) % Plt Count (150-450) k/uL Neutrophils % % Lymphocytes % % Monocytes % % Eosinophils % % Basophils % % Neutrophils # (1.3-7.7) k/uL Lymphocytes # (1.0-4.8) k/uL Monocytes # (0-1.0) k/uL Eosinophils # (0-0.7) k/uL Basophils # (0-0.2) k/uL PT (9.0-12.0) sec INR (<1.2) APTT (22.0-30.0) sec Sodium (137-145) mmol/L Potassium (3.5-5.1) mmol/L Chloride (98-107) mmol/L Carbon Dioxide (22-30) mmol/L Anion Gap mmol/L BUN (9-20) mg/dL Creatinine (0.66-1.25) mg/dL Est GFR (CKD-EPI)AfAm (>60 ml/min/1.73 sqM) Est GFR (CKD-EPI)NonAf (>60 ml/min/1.73 sqM) Glucose (74-99) mg/dL Calcium (8.4-10.2) mg/dL Magnesium (1.6-2.3) mg/dL Total Bilirubin (0.2-1.3) mg/dL AST (17-59) U/L ALT (4-49) U/L Alkaline Phosphatase (38-126) U/L Troponin I 0.145 H* (0.000-0.034) ng/mL NT-Pro-B Natriuret Pep 8400 pg/mL Total Protein (6.3-8.2) g/dL Albumin (3.5-5.0) g/dL Disposition Clinical Impression: Dyspnea Disposition: ADMITTED IP TO THIS HOSP Condition: Fair Referrals: Yosvany Escalona MD [Primary Care Provider] - 1-2 days Decision Time: 15:16
--- NOTE | 2019-09-02 13:20 | XR ---
EXAMINATION TYPE: XR chest 1V portable DATE OF EXAM: 09/02/2019 COMPARISON: Prior chest x-ray 11/12/2018 HISTORY: Dyspnea TECHNIQUE: Single frontal view of the chest is obtained. FINDINGS: There is no focal air space opacity, pleural effusion, or pneumothorax seen. The cardiac silhouette size is enlarged, aorta is dense. Central vascularity mildly prominent. The osseous struc tures are intact. IMPRESSION: Cardiomegaly. Rotated exam.
[2019-09-02 13:36] LABS: Basophils % (A) 0 %; Eosinophils # (A) 0.3 k/uL (0-0.7); Eosinophils % (A) 3 %; HCT 41.8 % (39.0-53.0); HGB 13.6 gm/dL (13.0-17.5); Lymphocytes # (A) 0.8 k/uL (1.0-4.8); Lymphocytes % (A) 8 %; MCH 30.3 pg (25.0-35.0); MCHC 32.6 g/dL (31.0-37.0); MCV 92.8 fL (80.0-100.0); Mean Platelet Volume 8.1; Monocytes # (A) 0.5 k/uL (0-1.0); Monocytes % (A) 5 %; Neutrophils # (A) 8.4 k/uL (1.3-7.7); Neutrophils % (A) 82 %; Platelet Count 228 k/uL (150-450); RDW 14.1 % (11.5-15.5); WBC 10.3 k/uL (3.8-10.6)
[2019-09-02 13:49] LABS: Albumin 3.6 g/dL (3.5-5.0); Calcium 8.5 mg/dL (8.4-10.2); Magnesium 1.9 mg/dL (1.6-2.3); Total Bilirubin 0.9 mg/dL (0.2-1.3); Total Protein 6.7 g/dL (6.3-8.2)
[2019-09-02 13:50] LABS: Potassium 4.2 mmol/L (3.5-5.1)
[2019-09-02 14:01] LABS: INR 1.4 (<1.2); Partial Thromboplastin Time 22.9 sec (22.0-30.0); Prothrombin Time 13.8 sec (9.0-12.0)
[2019-09-02] MEDS ORDERED: FUROSEMIDE 10 MG/ML 10 ML VIAL IV STA ×2 (14:42)
[2019-09-02] MEDS ORDERED: NALOXONE 0.4 MG/ML 1 ML VIAL IV PRN (15:12)
[2019-09-02 17:18] LABS: Glucose,Whole Blood 160 mg/dL (75-99)
[2019-09-02 20:46] LABS: Glucose,Whole Blood 280 mg/dL (75-99)
[2019-09-02] MEDS ORDERED: IPRATROPIUM-ALBUTEROL 3 ML NEB INHALATION PRN (21:19)
[2019-09-02] MEDS ORDERED: TRIAMCINOLONE 0.1% CREAM 80 GM TUBE TOPICAL PRN (21:19)
[2019-09-02] MEDS ORDERED: hydrOXYzine HCL 25 MG TAB PO PRN (21:19)
[2019-09-02] MEDS ORDERED: FLUTICASONE 50MCG/SPRAY NASAL 16GM EA NOSTRIL PRN (21:19)
[2019-09-02] MEDS ORDERED: NITROGLYCERIN SL TABS 0.4 MG TAB SUBLINGUAL PRN (21:19)
[2019-09-02] MEDS ORDERED: CYCLOBENZAPRINE 10 MG TAB PO PRN (21:19)
[2019-09-02] MEDS ORDERED: PANTOPRAZOLE 40 MG TABLET PO PRN (21:19)
[2019-09-02] MEDS: INSULIN ASPART (NovoLOG) 100 UNIT/ML VIAL SQ SCH (22:24)
[2019-09-02] MEDS: DICLOFENAC SODIUM GEL 100 GM TUBE TOPICAL SCH (22:24)
[2019-09-02] MEDS: METHADONE 5 MG TAB PO SCH (22:26)
[2019-09-02] MEDS: MELATONIN 3 MG TABLET PO SCH (22:26)
--- NOTE | 2019-09-02 22:31 | P.HPIM ---
History of Present Illness H&P Date: 09/02/19 Chief Complaint: Shortness of breath History of presenting complaint: This is a 79-year-old patient of Dr. Yosvany morrow whose chronic stable medical conditions include diabetes, hyperlipidemia, hypertension, fibromyalgia, right- sided weakness from prior stroke and peripheral neuropathy, atrial fibrillation. previously also's had a lumbar L3-L4 epidural abscess , carotid artery disease with prior stent, depression uses a walker to baseline COPD presbyesophagus causing chronic dysphagia. On August 25 patient underwent cardiac catheterization and was found critical stenosis of LAD 90%, obtuse marginal same and circumflex. Successful intervention was done to the LAD and obtuse marginal. Circumflex will be addressed in the future. Patient left iliac artery dissection and Dr. Mcfadden carried out an urgent stenting. Patient was discharged on August 29. Patient also had acute kidney injury. Creatinine had gone from 0.8-1.7. With hydration did come down to 1.3 before discharge. Patient came back to ER for last 2 days worsening short of breath. No edema. He had called his trash collector Dr. BEN Gardner and was told to increase his Lasix. Patient has some clear sputum. No fever no chills. Admitted for CHF exacerbation. Review of systems: GEN.: Tired EYES: None HEENT: Decreased hearing NECK: None RESPIRATORY: Short of breath CARDIOVASCULAR: As above GASTROINTESTINAL: None GENITOURINARY: None MUSCULOSKELETAL: Pain in joints LYMPHATICS: None HEMATOLOGICAL: None PSYCHIATRY: Anxious NEUROLOGICAL: Right-sided weakness from prior stroke Past medical history: Epidural abscess at L3-L4, CHF EF 40%, atrial fibrillation, diabetes, hyperlipidemia, hypertension, fibromyalgia, hiatal hernia, right-sided weakness from prior stroke, herniated disc in the lumbar spine, coronary artery disease with stent, depression, A dysfunction uses a walker, COPD, presbyesophagus, Social history . Ex-smoker. No alcohol. Family history: Father prostate cancer Physical examination: VITAL SIGNS: 98.2, 109, 18, 118/84, 98% room air GENERAL: BMI 33, laying in bed, slightly uncomfortable EYES: Pupils equal. Conjunctiva pale. HEENT: External appearance of nose and ears normal, oral cavity grossly normal, decreased hearing. NECK: JVD unable to assess, mass not palpable. HEART: First and second heart sounds are normal; no edema. LUNGS: Respiratory rate increased, decreased breath sounds. ABDOMEN: Soft, nontender, liver spleen not palpable, no masses palpable. Patient has a FemoStop in the left groin PSYCH: Alert and oriented x3; mood and affect anxious. NEUROLOGICAL: Cranial nerves grossly intact; no facial asymmetry, decreased power of the right side. LYMPHATICS: No lymph nodes palpable in the axilla and neck INVESTIGATIONS, reviewed in the clinical context: White count 10.3 hemoglobin 13.6 platelets 228 INR 1.4 potassium 4.2 creatinine 0.99 EKG tracing personally reviewed by me-atrial fibrillation Previous testing labs on August 29 were bun of 14 and creatinine 1.39, troponin I 0.145, proBNP 8400 Chest x-ray film personally reviewed by me-cardiomegaly no obvious venous prominence Assessment: -Acute on chronic congestive heart failure / systolic dysfunction EF 40% from underlying coronary artery disease, patient probably is a increased end- diastolic pressure given that x-rays not showing florid edema. Further the BNP is 8400 -Coronary artery disease with successful stenting to the obtuse marginal and LAD. 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 Plan: Home medications resumed. Patient is put on IV Lasix. We'll repeat a proBNP the morning. Patient also requiring some to constipation. Follow labs. Cardiology consulted. 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 History of Any Multi-Drug Resistant Organisms: None Reported Past Surgical History: Back Surgery, Heart Catheterization With Stent, Orthopedic Surgery, Prostate Surgery Additional Past Surgical History / Comment(s): unsuccessful cardioversion in 2017, endoscopic sinus surgery/polypectomy, colonoscopy, TURP, bilateral hydrocelectomy, rt elbow surgery, toñito cataracts, laminectomy, recent stent placement 08/26/2019 2 cardiac stent, 1 stent ilitac artery Past Anesthesia/Blood Transfusion Reactions: No Reported Reaction Date of Last Stent Placement:: 2019 Past Psychological History: Anxiety, Depression Additional Psychological History / Comment(s): . Smoking Status: Former smoker Past Alcohol Use History: None Reported Additional Past Alcohol Use History / Comment(s): Pt started smoking in 1957 and quit in 1989 Past Drug Use History: None Reported - Past Family History Mother Family Medical History: No Reported History Father Family Medical History: Cancer Additional Family Medical History / Comment(s): Father had prostrate cancer. Medications and Allergies Home Medications Medication Instructions Recorded Confirmed Type Triamcinolone 0.1% Cream [Kenalog 1 applic TOPICAL BID PRN 07/08/17 09/02/19 History 0.1% Cream] Methadone [Dolophine] 5 mg PO Q8H #9 tab 09/13/17 09/02/19 Rx Omeprazole [PriLOSEC] 20 mg PO TID PRN 09/20/17 09/02/19 History Cyanocobalamin (Vitamin B-12) 1,000 mcg PO DAILY@1200 10/31/18 09/02/19 History [Vitamin B-12] Cyclobenzaprine [Flexeril] 10 mg PO TID PRN 10/31/18 09/02/19 History Diclofenac Sodium [Voltaren Gel] 2 gram TOPICAL QID 10/31/18 09/02/19 History Fluticasone Nasal [place] [Flonase 2 spr EA NOSTRIL DAILY PRN 10/31/18 09/02/19 History Nasal [place]] Ipratropium-Albuterol Nebulize 3 ml INHALATION RT-TID PRN 10/31/18 09/02/19 History [Duoneb 0.5 mg-3 mg/3 ml Soln] Magnesium Oxide [Mag-Ox] 250 mg PO DAILY 10/31/18 09/02/19 History Montelukast [Singulair] 10 mg PO HS 10/31/18 09/02/19 History Nitroglycerin Sl Tabs [Nitrostat] 0.4 mg SUBLINGUAL Q5M PRN 10/31/18 09/02/19 History Sertraline [Zoloft] 100 mg PO HS 10/31/18 09/02/19 History Vitamin E 100 unit PO DAILY@1200 10/31/18 09/02/19 History hydrOXYzine HCL [Atarax] 25 mg PO TID PRN 10/31/18 09/02/19 History Aspirin EC [Ecotrin Low Dose] 81 mg PO HS #0 11/08/18 09/02/19 Rx Melatonin 3 mg PO HS tablet 11/08/18 09/02/19 Rx Metoprolol Tartrate [Lopressor] 50 mg PO BID #60 tab 11/08/18 09/02/19 Rx Insulin Glargine,Hum.rec.anlog 56 units SQ DAILY 08/23/19 09/02/19 History [Toujeo Solostar] Potassium Chloride ER [K-Dur 20] 20 meq PO BID 08/23/19 09/02/19 History Atorvastatin [Lipitor] 40 mg PO DAILY #30 tab 08/30/19 09/02/19 Rx Clopidogrel [Plavix] 75 mg PO DAILY #30 tab 08/30/19 09/02/19 Rx Furosemide [Lasix] 40 mg PO BID@0900,1600 #60 tablet 08/30/19 09/02/19 Rx Losartan [Cozaar] 25 mg PO DAILY #30 tab 08/30/19 09/02/19 Rx Insulin Aspart [NovoLOG Flexpen] See Protocol SQ TID 09/02/19 09/02/19 History Sennosides-Docusate Sodium 2 tab PO BID 09/02/19 09/02/19 History [Senokot-S] Vit C/E/Zn/Coppr/Lutein/Zeaxan 1 cap PO DAILY 09/02/19 09/02/19 History [Preservision Areds 2 Softgel] Warfarin Sodium 2.5 mg PO HS 09/02/19 09/02/19 History Allergies Allergy/AdvReac Type Severity Reaction Status Date / Time Sulfa (Sulfonamide Allergy Rash/Hives Verified 09/02/19 12:51 Antibiotics) Physical Exam Vitals: Vital Signs Temp Pulse Pulse Resp BP BP Pulse Ox 09/02/19 16:41 98.2 F 109 H 18 118/84 98 09/02/19 16:32 98 F 112 H 20 125/58 98 09/02/19 15:00 110 H 18 141/86 98 09/02/19 13:34 104 H 20 111/86 97 09/02/19 13:30 20 09/02/19 12:45 98.2 F 113 H 18 130/79 95 Intake and Output 09/02/19 09/02/19 09/02/19 06:59 14:59 22:59 Intake Total 300 Output Total 600 Balance -300 Intake: Oral 300 Output: Urine 600 Other: Weight 113.398 kg 113.398 kg Results CBC & Chem 7: 09/02/19 13:12 09/02/19 13:12 Labs: Abnormal Lab Results - Last 24 Hours (Table) 09/02/19 09/02/19 09/02/19 Range/Units 13:12 13:12 13:12 Neutrophils # 8.4 H (1.3-7.7) k/uL Lymphocytes # 0.8 L (1.0-4.8) k/uL PT 13.8 H (9.0-12.0) sec INR 1.4 H (<1.2) Sodium 134 L (137-145) mmol/L Chloride 89 L (98-107) mmol/L Carbon Dioxide 36 H (22-30) mmol/L BUN 32 H (9-20) mg/dL Glucose 226 H (74-99) mg/dL POC Glucose (mg/dL) (75-99) mg/dL Troponin I (0.000-0.034) ng/mL 09/02/19 09/02/19 09/02/19 Range/Units 13:12 17:16 20:45 Neutrophils # (1.3-7.7) k/uL Lymphocytes # (1.0-4.8) k/uL PT (9.0-12.0) sec INR (<1.2) Sodium (137-145) mmol/L Chloride (98-107) mmol/L Carbon Dioxide (22-30) mmol/L BUN (9-20) mg/dL Glucose (74-99) mg/dL POC Glucose (mg/dL) 160 H 280 H (75-99) mg/dL Troponin I 0.145 H* (0.000-0.034) ng/mL Thrombosis Risk Factor Assmnt - Choose All That Apply Any of the Below Risk Factors Present?: No Other Risk Factors: No Other congenital or acquired thrombophilia - If yes, enter type in comment: No Thrombosis Risk Factor Assessment Level: Very Low Risk
[2019-09-02] MEDS: FUROSEMIDE 10 MG/ML 4 ML VIAL IV SCH (23:05)
[2019-09-03 06:18] LABS: Glucose,Whole Blood 167 mg/dL (75-99)
[2019-09-03 06:28] LABS: Calcium 8.2 mg/dL (8.4-10.2); Potassium 3.4 mmol/L (3.5-5.1)
[2019-09-03] MEDS: INSULIN ASPART (NovoLOG) 100 UNIT/ML VIAL SQ SCH ×4 (06:44→20:56)
[2019-09-03] MEDS: METHADONE 5 MG TAB PO SCH ×3 (06:44→20:55)
[2019-09-03] MEDS: FUROSEMIDE 10 MG/ML 4 ML VIAL IV SCH ×3 (08:35→22:57)
[2019-09-03] MEDS: POTASSIUM CHLORIDE ER 20 MEQ TAB.ER PO SCH ×2 (08:36→20:55)
[2019-09-03] MEDS: ATORVASTATIN 40 MG TAB PO SCH (08:36)
[2019-09-03] MEDS: MAGNESIUM OXIDE 400 MG TAB PO SCH (08:36)
[2019-09-03] MEDS: LOSARTAN 25 MG TAB PO SCH (08:36)
[2019-09-03] MEDS: SENNOSIDES-DOCUSATE SODIUM 1 EACH TAB PO SCH ×2 (08:36→20:56)
[2019-09-03] MEDS: CLOPIDOGREL 75 MG TAB PO SCH (08:36)
[2019-09-03] MEDS: METOPROLOL TARTRATE 50 MG TAB PO SCH ×2 (08:36→20:55)
[2019-09-03] MEDS: DICLOFENAC SODIUM GEL 100 GM TUBE TOPICAL SCH ×4 (08:42→20:57)
[2019-09-03] MEDS: CYANOCOBALAMIN 500 MCG TAB PO SCH (10:58)
[2019-09-03 11:26] LABS: Glucose,Whole Blood 228 mg/dL (75-99)
[2019-09-03] MEDS: VITAMIN E (DL,TOCOPHERYL ACET) 400 UNIT CAP PO SCH (12:35)
[2019-09-03] MEDS ORDERED: LACTULOSE 20 GM/30 ML CUP PO ONE (14:47)
--- NOTE | 2019-09-03 14:52 | P.CRDCN ---
History of Present Illness Consult date: 09/03/19 Requesting physician: Ephraim Underwood Consult reason: shortness of breath Chief complaint: Shortness of breath History of present illness: This is a pleasant 79-year-old gentleman who follows regularly with Dr. Jessi Gardner in the office. He has a documented history of ischemic cardiomyopathy, hypertension, hyperlipidemia, PAD and PVD, CVA, chronic atrial fibrillation, patient recently underwent a cardiac catheterization with subsequent iliac stenting, LAD stenting, and circumflex stenting with and pelvis support on August 26. He was discharged home, he states that he ate the initial day after discharge he felt fine. Subsequent to that he began to feel short of breath, and started to notice significant peripheral edema. His diuretics were held on discharge because of worsening renal function during his hospitalization. His chest x-ray on presentation here showed cardiomegaly with mild congestive heart failure. EKG showed atrial fibrillation with rapid ventricular response, nonspecific ST-T wave changes. Blood pressure 128/50, heart rate 110, respirations 20, 93% on 3 L of oxygen. White blood cell count 10.3, hemoglobin 13.6, platelet count 228. Sodium 134, potassium 4.2, BUN 32, creatinine 0.9. This morning the sodium is 132, potassium 3.4, BUN 26, creatinine 1.0. Troponin 0.14, BNP level 8400. Patient was initiated on IV Lasix in the emergency room and has been diuresing well. At the time of my examination he denied any chest discomfort, still felt quite short of breath. And was complaining of some mild abdominal fullness, that he has not moved his bowels since Monday. 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 History of Any Multi-Drug Resistant Organisms: None Reported Past Surgical History: Back Surgery, Heart Catheterization With Stent, Orthopedic Surgery, Prostate Surgery Additional Past Surgical History / Comment(s): unsuccessful cardioversion in 2017, endoscopic sinus surgery/polypectomy, colonoscopy, TURP, bilateral hydrocelectomy, rt elbow surgery, toñito cataracts, laminectomy, recent stent placement 08/26/2019 2 cardiac stent, 1 stent ilitac artery Past Anesthesia/Blood Transfusion Reactions: No Reported Reaction Date of Last Stent Placement:: 2019 Past Psychological History: Anxiety, Depression Additional Psychological History / Comment(s): . Smoking Status: Former smoker Past Alcohol Use History: None Reported Additional Past Alcohol Use History / Comment(s): Pt started smoking in 1957 and quit in 1989 Past Drug Use History: None Reported - Past Family History Mother Family Medical History: No Reported History Father Family Medical History: Cancer Additional Family Medical History / Comment(s): Father had prostrate cancer. Medications and Allergies Home Medications Medication Instructions Recorded Confirmed Type Triamcinolone 0.1% Cream [Kenalog 1 applic TOPICAL BID PRN 07/08/17 09/02/19 History 0.1% Cream] Methadone [Dolophine] 5 mg PO Q8H #9 tab 09/13/17 09/02/19 Rx Omeprazole [PriLOSEC] 20 mg PO TID PRN 09/20/17 09/02/19 History Cyanocobalamin (Vitamin B-12) 1,000 mcg PO DAILY@1200 10/31/18 09/02/19 History [Vitamin B-12] Cyclobenzaprine [Flexeril] 10 mg PO TID PRN 10/31/18 09/02/19 History Diclofenac Sodium [Voltaren Gel] 2 gram TOPICAL QID 10/31/18 09/02/19 History Fluticasone Nasal [place] [Flonase 2 spr EA NOSTRIL DAILY PRN 10/31/18 09/02/19 History Nasal [place]] Ipratropium-Albuterol Nebulize 3 ml INHALATION RT-TID PRN 10/31/18 09/02/19 History [Duoneb 0.5 mg-3 mg/3 ml Soln] Magnesium Oxide [Mag-Ox] 250 mg PO DAILY 10/31/18 09/02/19 History Montelukast [Singulair] 10 mg PO HS 10/31/18 09/02/19 History Nitroglycerin Sl Tabs [Nitrostat] 0.4 mg SUBLINGUAL Q5M PRN 10/31/18 09/02/19 History Sertraline [Zoloft] 100 mg PO HS 10/31/18 09/02/19 History Vitamin E 100 unit PO DAILY@1200 10/31/18 09/02/19 History hydrOXYzine HCL [Atarax] 25 mg PO TID PRN 10/31/18 09/02/19 History Aspirin EC [Ecotrin Low Dose] 81 mg PO HS #0 11/08/18 09/02/19 Rx Melatonin 3 mg PO HS tablet 11/08/18 09/02/19 Rx Metoprolol Tartrate [Lopressor] 50 mg PO BID #60 tab 11/08/18 09/02/19 Rx Insulin Glargine,Hum.rec.anlog 56 units SQ DAILY 08/23/19 09/02/19 History [Toujeo Solostar] Potassium Chloride ER [K-Dur 20] 20 meq PO BID 08/23/19 09/02/19 History Atorvastatin [Lipitor] 40 mg PO DAILY #30 tab 08/30/19 09/02/19 Rx Clopidogrel [Plavix] 75 mg PO DAILY #30 tab 08/30/19 09/02/19 Rx Furosemide [Lasix] 40 mg PO BID@0900,1600 #60 tablet 08/30/19 09/02/19 Rx Losartan [Cozaar] 25 mg PO DAILY #30 tab 08/30/19 09/02/19 Rx Insulin Aspart [NovoLOG Flexpen] See Protocol SQ TID 09/02/19 09/02/19 History Sennosides-Docusate Sodium 2 tab PO BID 09/02/19 09/02/19 History [Senokot-S] Vit C/E/Zn/Coppr/Lutein/Zeaxan 1 cap PO DAILY 09/02/19 09/02/19 History [Preservision Areds 2 Softgel] Warfarin Sodium 2.5 mg PO HS 09/02/19 09/02/19 History Allergies Allergy/AdvReac Type Severity Reaction Status Date / Time Sulfa (Sulfonamide Allergy Rash/Hives Verified 09/02/19 12:51 Antibiotics) Physical Exam Vitals: Vital Signs Temp Pulse Pulse Resp BP BP Pulse Ox 09/03/19 11:06 98.4 F 110 H 18 126/88 97 09/03/19 08:00 99 F 115 H 18 128/59 93 L 09/03/19 03:40 98.1 F 97 20 140/76 95 09/02/19 23:45 98.1 F 90 18 129/84 97 09/02/19 20:00 98.4 F 100 18 125/82 97 09/02/19 16:41 98.2 F 109 H 18 118/84 98 09/02/19 16:32 98 F 112 H 20 125/58 98 09/02/19 15:00 110 H 18 141/86 98 Intake and Output 09/02/19 09/03/19 09/03/19 22:59 06:59 14:59 Intake Total 300 1020 Output Total 600 2100 1475 Balance -300 -455 Intake: Oral 300 1020 Output: Urine 600 2100 1475 Other: Voiding Method Indwelling Catheter Indwelling Catheter Indwelling Catheter Weight 113.398 kg 82.5 kg 82.5 kg PHYSICAL EXAMINATION: GENERAL: 79-year-old gentleman in no acute distress at the time of my examination HEENT: Head is atraumatic, normocephalic. Pupils equal, round. Sclera anicteric. Conjunctiva are clear. Mucous membranes of the mouth are moist. Neck is supple. There is no elevated jugular venous pressure. No carotid bruit is heard. HEART EXAMINATION: S1 and S2 irregularly irregular a systolic murmur is heard CHEST EXAMINATION: Was revealed diffuse scattered wheezes throughout ABDOMEN: Soft, obese, nontender. Bowel sounds are heard. No organomegaly noted. EXTREMITIES: 2+ peripheral pulses with no evidence of peripheral edema and no calf tenderness noted. NEUROLOGIC patient is awake, alert and oriented 3 . . Results 09/02/19 13:12 09/03/19 05:29 Comprehensive Metabolic Panel 09/03/19 Range/Units 05:29 Sodium 132 L (137-145) mmol/L Potassium 3.4 L (3.5-5.1) mmol/L Chloride 84 L (98-107) mmol/L Carbon Dioxide 45 H* (22-30) mmol/L BUN 26 H (9-20) mg/dL Creatinine 1.03 (0.66-1.25) mg/dL Glucose 138 H (74-99) mg/dL Calcium 8.2 L (8.4-10.2) mg/dL Current Medications Generic Name Dose Route Start Last Admin Trade Name Freq PRN Reason Stop Dose Admin Acetaminophen 650 mg 09/02/19 15:12 Tylenol Tab PO Q6HR PRN Mild Pain or Fever > 100.5 Albuterol/Ipratropium 3 ml 09/02/19 21:19 Duoneb 0.5 Mg-3 Mg/3 Ml Soln INHALATION RT-TID PRN Shortness Of Breath Aspirin 81 mg 09/03/19 21:00 Aspirin PO HS MARCELLE Atorvastatin Calcium 40 mg 09/03/19 09:00 09/03/19 08:36 Lipitor PO 40 mg DAILY MARCELLE Administration Clopidogrel Bisulfate 75 mg 09/03/19 09:00 09/03/19 08:36 Plavix PO 75 mg DAILY MARCELLE Administration Cyanocobalamin 1,000 mcg 09/03/19 12:00 09/03/19 10:58 Vitamin B-12 PO 1,000 mcg DAILY@1200 MARCELLE Administration Cyclobenzaprine HCl 10 mg 09/02/19 21:19 Flexeril PO TID PRN Muscle Pain Diclofenac Sodium 2 gm 09/02/19 22:00 09/03/19 12:35 Voltaren Gel TOPICAL 2 gm QID MARCELLE Administration Fluticasone Propionate 2 spray 09/02/19 21:19 Flonase Nasal [place] EA NOSTRIL DAILY PRN Allergy Symptoms Furosemide 40 mg 09/03/19 00:00 09/03/19 08:35 Lasix IV 40 mg Q8HR MARCELLE Administration Hydroxyzine HCl 25 mg 09/02/19 21:19 Atarax PO TID PRN Itching Insulin Aspart 0 unit 09/02/19 21:00 09/03/19 12:34 Novolog SQ 5 unit ACHS MARCELLE Administration Protocol Losartan Potassium 25 mg 09/03/19 09:00 09/03/19 08:36 Cozaar PO 25 mg DAILY MARCELLE Administration Magnesium Oxide 400 mg 09/03/19 09:00 09/03/19 08:36 Mag-Ox PO 400 mg DAILY MARCELLE Administration Melatonin 3 mg 09/02/19 21:30 09/02/19 22:26 Melatonin PO 3 mg HS MARCELLE Administration Methadone HCl 5 mg 09/02/19 22:00 09/03/19 14:11 Dolophine PO 5 mg Q8H MARCELLE Administration Metoprolol Tartrate 50 mg 09/03/19 09:00 09/03/19 08:36 Lopressor PO 50 mg BID MARCELLE Administration Montelukast Sodium 10 mg 09/03/19 21:00 Singulair PO HS MARCELLE Naloxone HCl 0.2 mg 09/02/19 15:12 Narcan IV Q2M PRN Opioid Reversal Nitroglycerin 0.4 mg 09/02/19 21:19 Nitrostat SUBLINGUAL Q5M PRN Chest Pain Pantoprazole Sodium 40 mg 09/02/19 21:19 09/03/19 10:59 Protonix PO 40 mg TID PRN Administration Heartburn Potassium Chloride 20 meq 09/03/19 09:00 09/03/19 08:36 K-Dur 20 PO 20 meq BID MARCELLE Administration Senna/Docusate Sodium 2 each 09/03/19 09:00 09/03/19 08:36 Senokot-S PO 2 each BID MARCELLE Administration Sertraline HCl 100 mg 09/03/19 21:00 Zoloft PO HS [facility] Triamcinolone Acetonide 1 applic 09/02/19 21:19 Kenalog TOPICAL BID PRN Itching Vitamin E 400 unit 09/03/19 12:00 09/03/19 12:35 Vitamin E PO 400 unit DAILY@1200 MARCELLE Administration Warfarin Sodium 2.5 mg 09/03/19 18:00 Coumadin PO DAILY@1800 [facility] Protocol Intake and Output 09/02/19 09/03/19 09/03/19 22:59 06:59 14:59 Intake Total 300 1020 Output Total 600 2100 1475 Balance -300 -2100 -455 Intake: Oral 300 1020 Output: Urine 600 2100 1475 Other: Voiding Method Indwelling Catheter Indwelling Catheter Indwelling Catheter Weight 113.398 kg 82.5 kg 82.5 kg Patient Weight 09/04/19 06:59 Weight 82.5 kg 09/02/19 13:12 09/03/19 05:29 EKG Interpretations (text) EKG shows atrial fibrillation with nonspecific ST-T wave changes Assessment and Plan Plan: Assessment and plan #1 systolic congestive heart failure acute on chronic #2 recent stenting of the LAD and circumflex artery with and pelvis support one week ago #3 PAD and PVD with a recent iliac stenting one week ago #4 hypertension #5 hyperlipidemia #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 fib #8 ischemic cardiomyopathy #9 hypokalemia Plan Patient is currently on IV Lasix 40 mg every 8 hourly. We will continue to monitor the intake and output along with daily weights and daily lytes BUN and creatinine. We will repeat an echocardiogram with Doppler study, it appears that one was not performed on this recent admission here. Continue dual antiplatelet therapy. Further recommendations to follow. DNP note has been reviewed, I agree with a documented findings and plan of care. Patient was seen and examined.
--- NOTE | 2019-09-03 16:40 | P.PN ---
Progress Note - Text Progress Note Date: 09/03/19 Chief Complaint: Shortness of breath History of presenting complaint: This is a 79-year-old patient of Dr. Yosvany morrow whose chronic stable medical conditions include diabetes, hyperlipidemia, hypertension, fibromyalgia, right- sided weakness from prior stroke and peripheral neuropathy, atrial fibrillation. previously also's had a lumbar L3-L4 epidural abscess , carotid artery disease with prior stent, depression uses a walker to baseline COPD presbyesophagus causing chronic dysphagia. On August 25 patient underwent cardiac catheterization and was found critical stenosis of LAD 90%, obtuse marginal same and circumflex. Successful intervention was done to the LAD and obtuse marginal. Circumflex will be addressed in the future. Patient left iliac artery dissection and Dr. Mcfadden carried out an urgent stenting. Patient was discharged on August 29. Patient also had acute kidney injury. Creatinine had gone from 0.8-1.7. With hydration did come down to 1.3 before discharge. Patient came back to ER for last 2 days worsening short of breath. No edema. 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 BEN Gardner and was told to increase his Lasix. Patient has some clear sputum. No fever no chills. Admitted for CHF exacerbation.-Started on IV Lasix. Today-breathing a bit better. Occasional cough. There is a well. Did tolerate diet. Review of systems: Was done for constitutional, cardiovascular, GI, pulmonary. relevant finding as above Active Medications Acetaminophen (Tylenol Tab) 650 mg PO Q6HR PRN PRN Reason: Mild Pain or Fever > 100.5 Albuterol/Ipratropium (Duoneb 0.5 Mg-3 Mg/3 Ml Soln) 3 ml INHALATION RT-TID PRN PRN Reason: Shortness Of Breath Aspirin (Aspirin) 81 mg PO [facility] Atorvastatin Calcium (Lipitor) 40 mg PO DAILY [facility] Last Admin: 09/03/19 08:36 Dose: 40 mg Documented by: Clopidogrel Bisulfate (Plavix) 75 mg PO DAILY [facility] Last Admin: 09/03/19 08:36 Dose: 75 mg Documented by: Cyanocobalamin (Vitamin B-12) 1,000 mcg PO DAILY@1200 [facility] Last Admin: 09/03/19 10:58 Dose: 1,000 mcg Documented by: Cyclobenzaprine HCl (Flexeril) 10 mg PO TID PRN PRN Reason: Muscle Pain Diclofenac Sodium (Voltaren Gel) 2 gm TOPICAL QID [facility] Last Admin: 09/03/19 12:35 Dose: 2 gm Documented by: Fluticasone Propionate (Flonase Nasal [place]) 2 spray EA NOSTRIL DAILY PRN PRN Reason: Allergy Symptoms Furosemide (Lasix) 40 mg IV Q8HR [facility] Last Admin: 09/03/19 15:22 Dose: 40 mg Documented by: Hydroxyzine HCl (Atarax) 25 mg PO TID PRN PRN Reason: Itching Insulin Aspart (Novolog) 0 unit SQ [facility]; Protocol Last Admin: 09/03/19 12:34 Dose: 5 unit Documented by: Losartan Potassium (Cozaar) 25 mg PO DAILY [facility] Last Admin: 09/03/19 08:36 Dose: 25 mg Documented by: Magnesium Oxide (Mag-Ox) 400 mg PO DAILY [facility] Last Admin: 09/03/19 08:36 Dose: 400 mg Documented by: Melatonin (Melatonin) 3 mg PO [facility] Last Admin: 09/02/19 22:26 Dose: 3 mg Documented by: Methadone HCl (Dolophine) 5 mg PO Q8H [facility] Last Admin: 09/03/19 14:11 Dose: 5 mg Documented by: Metoprolol Tartrate (Lopressor) 50 mg PO BID [facility] Last Admin: 09/03/19 08:36 Dose: 50 mg Documented by: Montelukast Sodium (Singulair) 10 mg PO [facility] Naloxone HCl (Narcan) 0.2 mg IV Q2M PRN PRN Reason: Opioid Reversal Nitroglycerin (Nitrostat) 0.4 mg SUBLINGUAL Q5M PRN PRN Reason: Chest Pain Pantoprazole Sodium (Protonix) 40 mg PO TID PRN PRN Reason: Heartburn Last Admin: 09/03/19 10:59 Dose: 40 mg Documented by: Potassium Chloride (K-Dur 20) 20 meq PO BID [facility] Last Admin: 09/03/19 08:36 Dose: 20 meq Documented by: Senna/Docusate Sodium (Senokot-S) 2 each PO BID [facility] Last Admin: 09/03/19 08:36 Dose: 2 each Documented by: Sertraline HCl (Zoloft) 100 mg PO [facility] Triamcinolone Acetonide (Kenalog) 1 applic TOPICAL BID PRN PRN Reason: Itching Vitamin E (Vitamin E) 400 unit PO DAILY@1200 [facility] Last Admin: 09/03/19 12:35 Dose: 400 unit Documented by: Warfarin Sodium (Coumadin) 3.5 mg PO DAILY@1800 [facility]; Protocol Physical examination: VITAL SIGNS: 97.5, 99, 16, 127/58,, 98% on 2 L GENERAL: BMI 33, laying in bed, more comfortable EYES: Pupils equal. Conjunctiva pale. HEENT: External appearance of nose and ears normal, oral cavity grossly normal, decreased hearing. NECK: JVD unable to assess, mass not palpable. HEART: First and second heart sounds are normal; no edema. LUNGS: Respiratory rate increased, decreased breath sounds. ABDOMEN: Soft, nontender, liver spleen not palpable, no masses palpable. Patient has a FemoStop in the left groin PSYCH: Alert and oriented x3; mood and affect anxious. NEUROLOGICAL: Cranial nerves grossly intact; no facial asymmetry, decreased power of the right side. INVESTIGATIONS, reviewed in the clinical context: Potassium 3.4 bicarb 45 creatinine 1.03 proBNP 4740 Previous testing White count 10.3 hemoglobin 13.6 platelets 228 INR 1.4 potassium 4.2 creatinine 0.99 EKG tracing personally reviewed by me-atrial fibrillation Chest x-ray film personally reviewed by me-cardiomegaly no obvious venous prominence -August 29 were bun of 14 and creatinine 1.39, troponin I 0.145, proBNP 8400 Assessment: -Acute on chronic congestive heart failure / systolic dysfunction EF 40% from underlying coronary artery disease, patient probably is a increased end- diastolic pressure given that x-rays not showing florid edema.-Improving -Coronary artery disease with successful stenting to the obtuse marginal and LAD. 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 That is too well. Add Diamox because of metabolic alkalosis. Hopefully cut back her Lasix tomorrow morning. Follow with cardiology.
[2019-09-03] MEDS ORDERED: WARFARIN 2.5 MG TAB PO SCH (18:00)
[2019-09-03 18:07] LABS: Glucose,Whole Blood 154 mg/dL (75-99)
[2019-09-03] MEDS: WARFARIN 1 MG TAB PO SCH (18:58)
[2019-09-03 20:09] LABS: Glucose,Whole Blood 333 mg/dL (75-99)
[2019-09-03] MEDS: SERTRALINE 100 MG TAB PO SCH (20:55)
[2019-09-03] MEDS: MONTELUKAST 10 MG TAB PO SCH (20:55)
[2019-09-03] MEDS: MELATONIN 3 MG TABLET PO SCH (20:55)
[2019-09-03] MEDS: ASPIRIN 81 MG PO SCH (20:55)
[2019-09-03] MEDS: acetaZOLAMIDE 250 MG TAB PO SCH (20:55)
[2019-09-04] MEDS: INSULIN ASPART (NovoLOG) 100 UNIT/ML VIAL SQ SCH ×4 (06:20→20:39)
[2019-09-04] MEDS: METHADONE 5 MG TAB PO SCH ×3 (06:22→20:40)
[2019-09-04 06:23] LABS: Glucose,Whole Blood 107 mg/dL (75-99)
[2019-09-04 08:00] LABS: Calcium 8.1 mg/dL (8.4-10.2); Potassium 3.4 mmol/L (3.5-5.1)
[2019-09-04] MEDS: SENNOSIDES-DOCUSATE SODIUM 1 EACH TAB PO SCH ×2 (09:17→20:40)
[2019-09-04] MEDS: POTASSIUM CHLORIDE ER 20 MEQ TAB.ER PO SCH ×2 (09:17→20:40)
[2019-09-04] MEDS: acetaZOLAMIDE 250 MG TAB PO SCH ×2 (09:17→20:39)
[2019-09-04] MEDS: ATORVASTATIN 40 MG TAB PO SCH (09:17)
[2019-09-04] MEDS: MAGNESIUM OXIDE 400 MG TAB PO SCH (09:18)
[2019-09-04] MEDS: FUROSEMIDE 10 MG/ML 4 ML VIAL IV SCH ×3 (09:18→23:41)
[2019-09-04] MEDS: CLOPIDOGREL 75 MG TAB PO SCH (09:18)
[2019-09-04] MEDS: LOSARTAN 25 MG TAB PO SCH (09:18)
[2019-09-04] MEDS: DICLOFENAC SODIUM GEL 100 GM TUBE TOPICAL SCH ×4 (09:30→20:45)
[2019-09-04] MEDS: METOPROLOL TARTRATE 50 MG TAB PO SCH ×2 (09:30→20:39)
--- NOTE | 2019-09-04 10:08 | ECHOF ---
Referral Reason:Assess LV FX---Limited study MEASUREMENTS -------- HEIGHT: 185.4 cm WEIGHT: 82.1 kg BP: 126/88 RVIDd: 3.8 cm (< 3.3) IVSd: 1.5 cm (0.6 - 1.1) LVIDd: 5.5 cm (3.9 - 5.3) LVPWd: 1.3 cm (0.6 - 1.1) IVSs: 1.7 cm LVIDs: 4.4 cm LVPWs: 1.8 cm LA Diam: 4.5 cm (2.7 - 3.8) LAESV Index (A-L): 42.77 ml/m Ao Diam: 3.6 cm (2.0 - 3.7) AV Cusp: 2.3 cm (1.5 - 2.6) MV EXCURSION: 23.427 mm (> 18.000) MV EF SLOPE: 76 mm/s (70 - 150) EPSS: 1.5 cm AR PHT: 1592 ms FINDINGS -------- Atrial fibrillation. This was a technically difficult study with suboptimal apical views. The left ventricular size is normal. There is moderate concentric left ventricular hypertrophy. O verall left ventricular systolic function is moderate-severely impaired with, an EF between 30 - 35 % . Basal inferior LV wall motion is akinetic. Basal inferoseptal LV wall motion is akinetic. M id lateral LV wall motion is akinetic. Mid inferior LV wall motion is akinetic. Apical inferior LV wall motion is akinetic. The right ventricle is mild to moderately enlarged. LA is severely dilated >40 ml/m2 The right atrial size is normal. Interatrial and interventricular septum intact. There is mild aortic valve sclerosis. There is mild aortic regurgitation. Mild mitral annular calcification present. Mild mitral regurgitation is present. Mild tricuspid regurgitation present. Unable to estimate RVSP due to inadequate TR jet spectral dop pler profile. The pulmonic valve was not well visualized. Trace/mild (physiologic) pulmonic regurgitation. The aortic root size is normal. IVC Not well visulized. There is no pericardial effusion. CONCLUSIONS -------- 1. This was a technically difficult study with suboptimal apical views. 2. There is moderate concentric left ventricular hypertrophy. 3. Overall left ventricular systolic function is moderate-severely impaired with, an EF between 30 - 35 %. 4. Basal inferior LV wall motion is akinetic. 5. Basal inferoseptal LV wall motion is akinetic. 6. Mid lateral LV wall motion is akinetic. 7. Mid inferior LV wall motion is akinetic. 8. Apical inferior LV wall motion is akinetic. 9. The right ventricle is mild to moderately enlarged. 10. LA is severely dilated >40 ml/m2 11. There is mild aortic valve sclerosis. 12. There is mild aortic regurgitation. 13. Mild mitral annular calcification present. 14. Mild mitral regurgitation is present. 15. Mild tricuspid regurgitation present. 16. Trace/mild (physiologic) pulmonic regurgitation. 17. There is no pericardial effusion. PHOTO GRAPHICS LIBRARIAN: Mary Lou Dang RDCS
[2019-09-04 12:05] LABS: Glucose,Whole Blood 386 mg/dL (75-99)
[2019-09-04] MEDS: VITAMIN E (DL,TOCOPHERYL ACET) 400 UNIT CAP PO SCH (12:33)
[2019-09-04] MEDS: ACETAMINOPHEN TAB 325 MG TAB PO PRN (12:33)
[2019-09-04] MEDS: CYANOCOBALAMIN 500 MCG TAB PO SCH (12:33)
--- NOTE | 2019-09-04 15:25 | P.PN ---
Subjective Progress Note Date: 09/04/19 This is a pleasant 79-year-old gentleman who follows regularly with Dr. Jessi Gardner in the office. He has a documented history of ischemic cardiomyopathy, hypertension, hyperlipidemia, PAD and PVD, CVA, chronic atrial fibrillation, patient recently underwent a cardiac catheterization with subsequ ent iliac stenting, LAD stenting, and circumflex stenting with and pelvis support on August 26. He was discharged home, he states that he ate the initial day after discharge he felt fine. Subsequent to that he began to feel short of breath, and started to notice significant peripheral edema. His diuretics were held on discharge because of worsening renal function during his hospitalization. His chest x-ray on presentation here showed cardiomegaly with mild congestive heart failure. EKG showed atrial fibrillation with rapid ventricular response, nonspecific ST-T wave changes. Blood pressure 128/50, heart rate 110, respirations 20, 93% on 3 L of oxygen. White blood cell count 10.3, hemoglobin 13.6, platelet count 228. Sodium 134, potassium 4.2, BUN 32, creatinine 0.9. This morning the sodium is 132, potassium 3.4, BUN 26, creatinine 1.0. Troponin 0.14, BNP level 8400. Patient was initiated on IV Lasix in the emergency room and has been diuresing well. At the time of my examination he denied any chest discomfort, still felt quite short of breath. And was complaining of some mild abdominal fullness, that he has not moved his bowels since Monday. 09/04/2019 Patient was seen and examined this morning, he does feel significantly better overall today. He has diuresed well through the night although her weight is not reflective of this. Blood pressure 118/60 with a heart rate in the 60s, 92% on room air. Sodium 128, potassium 3.4, BUN 28 and creatinine 1.3. Echocardio gram with Doppler study was performed which revealed an ejection fraction of 30- 35%. Objective - Vital Signs Vital signs: Vital Signs Temp 98.4 F 09/04/19 12:00 Pulse 64 09/04/19 12:00 Resp 20 09/04/19 12:00 BP 118/62 09/04/19 12:00 Pulse Ox 92 L 09/04/19 12:00 Intake & Output 09/03/19 09/04/19 09/04/19 18:59 06:59 18:59 Intake Total 1260 480 Output Total 7542 172 1200 Balance -1015 -1725 -720 Weight 82.5 kg 112.2 kg Intake: Oral 1260 480 Output: Urine 6887 1727 1200 Other: Voiding Method Indwelling Catheter Indwelling Catheter # Bowel Movements 1 - Exam PHYSICAL EXAMINATION: GENERAL: 79-year-old gentleman in no acute distress at the time of my examination HEENT: Head is atraumatic, normocephalic. Pupils equal, round. Sclera anicteric. Conjunctiva are clear. Mucous membranes of the mouth are moist. Neck is supple. There is no elevated jugular venous pressure. No carotid bruit is heard. HEART EXAMINATION: S1 and S2 irregularly irregular a systolic murmur is heard CHEST EXAMINATION: Was revealed diffuse scattered wheezes throughout ABDOMEN: Soft, obese, nontender. Bowel sounds are heard. No organomegaly noted. EXTREMITIES: 2+ peripheral pulses with no evidence of peripheral edema and no calf tenderness noted. NEUROLOGIC patient is awake, alert and oriented 3 . - Labs CBC & Chem 7: 09/02/19 13:12 09/04/19 06:39 Labs: Abnormal Lab Results - Last 24 Hours (Table) 09/03/19 09/03/19 09/04/19 Range/Units 18:06 20:08 06:20 Sodium (137-145) mmol/L Potassium (3.5-5.1) mmol/L Chloride (98-107) mmol/L Carbon Dioxide (22-30) mmol/L BUN (9-20) mg/dL Creatinine (0.66-1.25) mg/dL POC Glucose (mg/dL) 154 H 333 H 107 H (75-99) mg/dL Calcium (8.4-10.2) mg/dL 09/04/19 09/04/19 Range/Units 06:39 11:37 Sodium 128 L (137-145) mmol/L Potassium 3.4 L (3.5-5.1) mmol/L Chloride 80 L (98-107) mmol/L Carbon Dioxide 39 H (22-30) mmol/L BUN 28 H (9-20) mg/dL Creatinine 1.36 H (0.66-1.25) mg/dL POC Glucose (mg/dL) 386 H (75-99) mg/dL Calcium 8.1 L (8.4-10.2) mg/dL Assessment and Plan Plan: Assessment and plan #1 systolic congestive heart failure acute on chronic #2 recent stenting of the LAD and circumflex artery with and pelvis support one week ago #3 PAD and PVD with a recent iliac stenting one week ago #4 hypertension #5 hyperlipidemia #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 fib #8 ischemic cardiomyopathy #9 hypokalemia Plan Patient is currently on IV Lasix 40 mg every 8 hourly. We will continue to monitor the intake and output along with daily weights and daily lytes BUN and creatinine. DNP note has been reviewed, I agree with a documented findings and plan of care. Patient was seen and examined.
[2019-09-04 17:03] LABS: Glucose,Whole Blood 73 mg/dL (75-99)
[2019-09-04] MEDS: WARFARIN 1 MG TAB PO SCH (18:11)
[2019-09-04 19:56] LABS: Glucose,Whole Blood 163 mg/dL (75-99)
[2019-09-04] MEDS: MELATONIN 3 MG TABLET PO SCH (20:40)
[2019-09-04] MEDS: MONTELUKAST 10 MG TAB PO SCH (20:40)
[2019-09-04] MEDS: ASPIRIN 81 MG PO SCH (20:40)
[2019-09-04] MEDS: SERTRALINE 100 MG TAB PO SCH (20:40)
--- NOTE | 2019-09-04 22:12 | P.PN ---
Progress Note - Text Progress Note Date: 09/04/19 Chief Complaint: Shortness of breath History of presenting complaint: This is a 79-year-old patient of Dr. Yosvany morrow whose chronic stable medical conditions include diabetes, hyperlipidemia, hypertension, fibromyalgia, right- sided weakness from prior stroke and peripheral neuropathy, atrial fibrillation. previously also's had a lumbar L3-L4 epidural abscess , carotid artery disease with prior stent, depression uses a walker to baseline COPD presbyesophagus causing chronic dysphagia. On August 25 patient underwent cardiac catheterization and was found critical stenosis of LAD 90%, obtuse marginal same and circumflex. Successful intervention was done to the LAD and obtuse marginal. Circumflex will be addressed in the future. Patient left iliac artery dissection and Dr. Mcfadden carried out an urgent stenting. Patient was discharged on August 29. Patient also had acute kidney injury. Creatinine had gone from 0.8-1.7. With hydration did come down to 1.3 before discharge. Patient came back to ER for last 2 days worsening short of breath. No edema. He had called his director of construction Dr. BEN Gardner and was told to increase his Lasix. Patient has some clear sputum. No fever no chills. Admitted for CHF exacerbation.-Started on IV Lasix. Today-breathing much improved. Tolerated diet. No cough. On IV Lasix. Review of systems: Was done for constitutional, cardiovascular, GI, pulmonary. relevant finding as above Active Medications Acetaminophen (Tylenol Tab) 650 mg PO Q6HR PRN PRN Reason: Mild Pain or Fever > 100.5 Last Admin: 09/04/19 12:33 Dose: 650 mg Documented by: Acetazolamide (Diamox) 250 mg PO BID [facility] Last Admin: 09/04/19 20:39 Dose: 250 mg Documented by: Albuterol/Ipratropium (Duoneb 0.5 Mg-3 Mg/3 Ml Soln) 3 ml INHALATION RT-TID PRN PRN Reason: Shortness Of Breath Aspirin (Aspirin) 81 mg PO HS [facility] Last Admin: 09/04/19 20:40 Dose: 81 mg Documented by: Atorvastatin Calcium (Lipitor) 40 mg PO DAILY [facility] Last Admin: 09/04/19 09:17 Dose: 40 mg Documented by: Clopidogrel Bisulfate (Plavix) 75 mg PO DAILY [facility] Last Admin: 09/04/19 09:18 Dose: 75 mg Documented by: Cyanocobalamin (Vitamin B-12) 1,000 mcg PO DAILY@1200 [facility] Last Admin: 09/04/19 12:33 Dose: 1,000 mcg Documented by: Cyclobenzaprine HCl (Flexeril) 10 mg PO TID PRN PRN Reason: Muscle Pain Diclofenac Sodium (Voltaren Gel) 2 gm TOPICAL QID [facility] Last Admin: 09/04/19 20:45 Dose: 2 gm Documented by: Fluticasone Propionate (Flonase Nasal [place]) 2 spray EA NOSTRIL DAILY PRN PRN Reason: Allergy Symptoms Furosemide (Lasix) 40 mg IV Q8HR [facility] Last Admin: 09/04/19 15:03 Dose: 40 mg Documented by: Hydroxyzine HCl (Atarax) 25 mg PO TID PRN PRN Reason: Itching Insulin Aspart (Novolog) 0 unit SQ [facility]; Protocol Last Admin: 09/04/19 20:39 Dose: 2 unit Documented by: Losartan Potassium (Cozaar) 25 mg PO DAILY [facility] Last Admin: 09/04/19 09:18 Dose: 25 mg Documented by: Magnesium Oxide (Mag-Ox) 400 mg PO DAILY [facility] Last Admin: 09/04/19 09:18 Dose: 400 mg Documented by: Melatonin (Melatonin) [address] [facility] Last Admin: 09/04/19 20:40 Dose: 3 mg Documented by: Methadone HCl (Dolophine) 5 mg PO Q8H [facility] Last Admin: 09/04/19 20:40 Dose: 5 mg Documented by: Metoprolol Tartrate (Lopressor) 50 mg PO BID [facility] Last Admin: 09/04/19 20:39 Dose: 50 mg Documented by: Montelukast Sodium (Singulair) [address] [facility] Last Admin: 09/04/19 20:40 Dose: 10 mg Documented by: Naloxone HCl (Narcan) 0.2 mg IV Q2M PRN PRN Reason: Opioid Reversal Nitroglycerin (Nitrostat) 0.4 mg SUBLINGUAL Q5M PRN PRN Reason: Chest Pain Pantoprazole Sodium (Protonix) 40 mg PO TID PRN PRN Reason: Heartburn Last Admin: 09/03/19 10:59 Dose: 40 mg Documented by: Potassium Chloride (K-Dur 20) 20 meq PO BID [facility] Last Admin: 09/04/19 20:40 Dose: 20 meq Documented by: Senna/Docusate Sodium (Senokot-S) 2 each PO BID [facility] Last Admin: 09/04/19 20:40 Dose: 2 each Documented by: Sertraline HCl (Zoloft) 100 mg PO HS [facility] Last Admin: 09/04/19 20:40 Dose: 100 mg Documented by: Triamcinolone Acetonide (Kenalog) 1 applic TOPICAL BID PRN PRN Reason: Itching Vitamin E (Vitamin E) 400 unit PO DAILY@1200 [facility] Last Admin: 09/04/19 12:33 Dose: 400 unit Documented by: Warfarin Sodium (Coumadin) 3.5 mg PO DAILY@1800 [facility]; Protocol Last Admin: 09/04/19 18:11 Dose: 3.5 mg Documented by: Physical examination: VITAL SIGNS: 98.3, 90, 18, 137/83, 94% room air GENERAL: Laying in bed, awake EYES: Pupils equal. Conjunctiva pale. HEENT: External appearance of nose and ears normal, oral cavity grossly normal, decreased hearing. NECK: JVD unable to assess, mass not palpable. HEART: First and second heart sounds are normal; no edema. LUNGS: Respiratory rate increased, decreased breath sounds. ABDOMEN: Soft, nontender, liver spleen not palpable, no masses palpable. PSYCH: Alert and oriented x3; mood and affect slightly anxious NEUROLOGICAL: Cranial nerves grossly intact; no facial asymmetry, decreased power of the right side. INVESTIGATIONS, reviewed in the clinical context: Sodium 128 depression 3.4 bicarb 29 bun 28 crit 1.36 Previous testing White count 10.3 hemoglobin 13.6 platelets 228 INR 1.4 potassium 4.2 creatinine 0.99 EKG tracing personally reviewed by me-atrial fibrillation Chest x-ray film personally reviewed by me-cardiomegaly no obvious venous prominence -August 29 were bun of 14 and creatinine 1.39, troponin I 0.145, proBNP 8400 Assessment: -Acute on chronic congestive heart failure / systolic dysfunction EF 40% from underlying coronary artery disease, patient probably is a increased end- diastolic pressure given that x-rays not showing florid edema.-Improved -Acute kidney injury, prerenal from diuresis -Coronary artery disease with successful stenting to the obtuse marginal and LAD. 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 Also alkalotic. And clinically looks much improved. We'll hold off morning dose of IV Lasix until further evaluate by cardiology in the morning..
[2019-09-05 06:10] LABS: Glucose,Whole Blood 162 mg/dL (75-99)
[2019-09-05] MEDS: INSULIN ASPART (NovoLOG) 100 UNIT/ML VIAL SQ SCH ×4 (06:15→20:10)
[2019-09-05] MEDS: METHADONE 5 MG TAB PO SCH ×3 (06:16→20:10)
[2019-09-05] MEDS: FUROSEMIDE 10 MG/ML 4 ML VIAL IV SCH ×4 (08:54→23:21)
[2019-09-05] MEDS: SENNOSIDES-DOCUSATE SODIUM 1 EACH TAB PO SCH ×2 (08:54→20:11)
[2019-09-05] MEDS: ATORVASTATIN 40 MG TAB PO SCH (08:55)
[2019-09-05] MEDS: METOPROLOL TARTRATE 50 MG TAB PO SCH ×2 (08:55→20:11)
[2019-09-05] MEDS: POTASSIUM CHLORIDE ER 20 MEQ TAB.ER PO SCH ×2 (08:55→20:11)
[2019-09-05] MEDS: CLOPIDOGREL 75 MG TAB PO SCH (08:55)
[2019-09-05] MEDS: LOSARTAN 25 MG TAB PO SCH (08:55)
[2019-09-05] MEDS: DICLOFENAC SODIUM GEL 100 GM TUBE TOPICAL SCH ×4 (08:55→20:19)
[2019-09-05] MEDS: acetaZOLAMIDE 250 MG TAB PO SCH ×2 (08:55→20:11)
[2019-09-05] MEDS: MAGNESIUM OXIDE 400 MG TAB PO SCH (08:55)
[2019-09-05 11:46] LABS: Glucose,Whole Blood 246 mg/dL (75-99)
[2019-09-05] MEDS: CYANOCOBALAMIN 500 MCG TAB PO SCH (11:58)
[2019-09-05] MEDS: VITAMIN E (DL,TOCOPHERYL ACET) 400 UNIT CAP PO SCH (11:58)
[2019-09-05 13:27] LABS: Calcium 7.8 mg/dL (8.4-10.2); Potassium 3.5 mmol/L (3.5-5.1)
[2019-09-05] MEDS: IPRATROPIUM-ALBUTEROL 3 ML NEB INHALATION SCH ×3 (13:39→19:17)
[2019-09-05] MEDS: BUDESONIDE 1 MG/2 ML NEBU INHALATION SCH ×2 (13:39→19:17)
--- NOTE | 2019-09-05 14:49 | P.PN ---
Subjective Progress Note Date: 09/05/19 This is a pleasant 79-year-old gentleman who follows regularly with Dr. Jessi Gardner in the office. He has a documented history of ischemic cardiomyopathy, hypertension, hyperlipidemia, PAD and PVD, CVA, chronic atrial fibrillation, patient recently underwent a cardiac catheterization with subsequ ent iliac stenting, LAD stenting, and circumflex stenting with and pelvis support on August 26. He was discharged home, he states that he ate the initial day after discharge he felt fine. Subsequent to that he began to feel short of breath, and started to notice significant peripheral edema. His diuretics were held on discharge because of worsening renal function during his hospitalization. His chest x-ray on presentation here showed cardiomegaly with mild congestive heart failure. EKG showed atrial fibrillation with rapid ventricular response, nonspecific ST-T wave changes. Blood pressure 128/50, heart rate 110, respirations 20, 93% on 3 L of oxygen. White blood cell count 10.3, hemoglobin 13.6, platelet count 228. Sodium 134, potassium 4.2, BUN 32, creatinine 0.9. This morning the sodium is 132, potassium 3.4, BUN 26, creatinine 1.0. Troponin 0.14, BNP level 8400. Patient was initiated on IV Lasix in the emergency room and has been diuresing well. At the time of my examination he denied any chest discomfort, still felt quite short of breath. And was complaining of some mild abdominal fullness, that he has not moved his bowels since Monday. 09/04/2019 Patient was seen and examined this morning, he does feel significantly better overall today. He has diuresed well through the night although her weight is not reflective of this. Blood pressure 118/60 with a heart rate in the 60s, 92% on room air. Sodium 128, potassium 3.4, BUN 28 and creatinine 1.3. Echocardio gram with Doppler study was performed which revealed an ejection fraction of 30- 35%. 09/05/2019 Patient seen and examined this morning, he states that he's feeling better every day, but continues to have a significant amount of wheezing, still becomes quite short of breath walking back from the bathroom. Blood pressure 102/62, heart rate in the 80s, 97% on room air. Sodium 125, potassium 3.5, BUN 33, creatinine 1.4. Objective - Vital Signs Vital signs: Vital Signs Temp 98.4 F 09/05/19 12:00 Pulse 80 09/05/19 12:00 Resp 18 09/05/19 12:00 BP 102/62 09/05/19 12:00 Pulse Ox 97 09/05/19 12:00 Intake & Output 09/04/19 09/05/19 09/05/19 18:59 06:59 18:59 Intake Total 720 240 480 Output Total 1200 1320 Balance -480 -1080 480 Weight 111.7 kg Intake: Oral 720 240 480 Output: Urine 1200 1320 Other: Voiding Method Indwelling Catheter # Voids 1 - Exam PHYSICAL EXAMINATION: GENERAL: 79-year-old gentleman in no acute distress at the time of my examination HEENT: Head is atraumatic, normocephalic. Pupils equal, round. Sclera anicteric. Conjunctiva are clear. Mucous membranes of the mouth are moist. Neck is supple. There is no elevated jugular venous pressure. No carotid bruit is heard. HEART EXAMINATION: S1 and S2 irregularly irregular a systolic murmur is heard CHEST EXAMINATION: Was revealed diffuse scattered wheezes throughout ABDOMEN: Soft, obese, nontender. Bowel sounds are heard. No organomegaly noted. EXTREMITIES: 2+ peripheral pulses with no evidence of peripheral edema and no calf tenderness noted. NEUROLOGIC patient is awake, alert and oriented 3 . - Labs CBC & Chem 7: 09/02/19 13:12 09/05/19 12:55 Labs: Abnormal Lab Results - Last 24 Hours (Table) 09/04/19 09/04/19 09/05/19 Range/Units 16:53 19:54 06:09 Sodium (137-145) mmol/L Chloride (98-107) mmol/L Carbon Dioxide (22-30) mmol/L BUN (9-20) mg/dL Creatinine (0.66-1.25) mg/dL Glucose (74-99) mg/dL POC Glucose (mg/dL) 73 L 163 H 162 H (75-99) mg/dL Calcium (8.4-10.2) mg/dL 09/05/19 09/05/19 Range/Units 11:40 12:55 Sodium 125 L (137-145) mmol/L Chloride 79 L (98-107) mmol/L Carbon Dioxide 36 H (22-30) mmol/L BUN 33 H (9-20) mg/dL Creatinine 1.46 H (0.66-1.25) mg/dL Glucose 255 H (74-99) mg/dL POC Glucose (mg/dL) 246 H (75-99) mg/dL Calcium 7.8 L (8.4-10.2) mg/dL Assessment and Plan Plan: Assessment and plan #1 systolic congestive heart failure acute on chronic #2 recent stenting of the LAD and circumflex artery with and pelvis support one week ago #3 PAD and PVD with a recent iliac stenting one week ago #4 hypertension #5 hyperlipidemia #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 fib #8 ischemic cardiomyopathy #9 hypokalemia Plan Patient is currently on IV Lasix 40 mg every 8 hourly. Which we will continue. We will continue to monitor the intake and output along with daily weights and daily lytes BUN and creatinine. DNP note has been reviewed, I agree with a documented findings and plan of care. Patient was seen and examined.
[2019-09-05 16:58] LABS: Glucose,Whole Blood 348 mg/dL (75-99)
[2019-09-05] MEDS: WARFARIN 1 MG TAB PO SCH (17:51)
--- NOTE | 2019-09-05 18:06 | P.PN ---
Progress Note - Text Progress Note Date: 09/05/19 Chief Complaint: Shortness of breath History of presenting complaint: This is a 79-year-old patient of Dr. Yosvany morrow whose chronic stable medical conditions include diabetes, hyperlipidemia, hypertension, fibromyalgia, right- sided weakness from prior stroke and peripheral neuropathy, atrial fibrillation. previously also's had a lumbar L3-L4 epidural abscess , carotid artery disease with prior stent, depression uses a walker to baseline COPD presbyesophagus causing chronic dysphagia. On August 25 patient underwent cardiac catheterization and was found critical stenosis of LAD 90%, obtuse marginal same and circumflex. Successful intervention was done to the LAD and obtuse marginal. Circumflex will be addressed in the future. Patient left iliac artery dissection and Dr. Mcfadden carried out an urgent stenting. Patient was discharged on August 29. Patient also had acute kidney injury. Creatinine had gone from 0.8-1.7. With hydration did come down to 1.3 before discharge. Patient came back to ER for last 2 days worsening short of breath. No edema. He had called his certified court interpreter Dr. BEN Gardner and was told to increase his Lasix. Patient has some clear sputum. No fever no chills. Admitted for CHF exacerbation.-Started on IV Lasix. Today-Breathing continues to improve. Some wheezing.. On IV Lasix. Eating better. Review of systems: Was done for constitutional, cardiovascular, GI, pulmonary. relevant finding as above Active Medications Acetaminophen (Tylenol Tab) 650 mg PO Q6HR PRN PRN Reason: Mild Pain or Fever > 100.5 Last Admin: 09/04/19 12:33 Dose: 650 mg Documented by: Acetazolamide (Diamox) 250 mg PO BID [facility] Last Admin: 09/05/19 08:55 Dose: 250 mg Documented by: Albuterol/Ipratropium (Duoneb 0.5 Mg-3 Mg/3 Ml Soln) 3 ml INHALATION RT-TID PRN PRN Reason: Shortness Of Breath Albuterol/Ipratropium (Duoneb 0.5 Mg-3 Mg/3 Ml Soln) 3 ml INHALATION RT-QID [facility] Last Admin: 09/05/19 15:26 Dose: 3 ml Documented by: Aspirin (Aspirin) 81 mg PO HS [facility] Last Admin: 09/04/19 20:40 Dose: 81 mg Documented by: Atorvastatin Calcium (Lipitor) 40 mg PO DAILY [facility] Last Admin: 09/05/19 08:55 Dose: 40 mg Documented by: Budesonide (Pulmicort) 1 mg INHALATION RT-BID [facility] Last Admin: 09/05/19 13:39 Dose: Not Given Documented by: Clopidogrel Bisulfate (Plavix) 75 mg PO DAILY [facility] Last Admin: 09/05/19 08:55 Dose: 75 mg Documented by: Cyanocobalamin (Vitamin B-12) 1,000 mcg PO DAILY@1200 [facility] Last Admin: 09/05/19 11:58 Dose: 1,000 mcg Documented by: Cyclobenzaprine HCl (Flexeril) 10 mg PO TID PRN PRN Reason: Muscle Pain Diclofenac Sodium (Voltaren Gel) 2 gm TOPICAL QID [facility] Last Admin: 09/05/19 17:58 Dose: 2 gm Documented by: Fluticasone Propionate (Flonase Nasal [place]) 2 spray EA NOSTRIL DAILY PRN PRN Reason: Allergy Symptoms Furosemide (Lasix) 40 mg IV Q8HR [facility] Last Admin: 09/05/19 17:58 Dose: 40 mg Documented by: Hydroxyzine HCl (Atarax) 25 mg PO TID PRN PRN Reason: Itching Insulin Aspart (Novolog) 0 unit SQ [facility]; Protocol Last Admin: 09/05/19 17:52 Dose: 9 unit Documented by: Losartan Potassium (Cozaar) 25 mg PO DAILY [facility] Last Admin: 09/05/19 08:55 Dose: 25 mg Documented by: Magnesium Oxide (Mag-Ox) 400 mg PO DAILY [facility] Last Admin: 09/05/19 08:55 Dose: 400 mg Documented by: Melatonin (Melatonin) 3 mg PO [facility] Last Admin: 09/04/19 20:40 Dose: 3 mg Documented by: Methadone HCl (Dolophine) 5 mg PO Q8H [facility] Last Admin: 09/05/19 13:56 Dose: 5 mg Documented by: Metoprolol Tartrate (Lopressor) 50 mg PO BID [facility] Last Admin: 09/05/19 08:55 Dose: 50 mg Documented by: Montelukast Sodium (Singulair) 10 mg PO [facility] Last Admin: 09/04/19 20:40 Dose: 10 mg Documented by: Naloxone HCl (Narcan) 0.2 mg IV Q2M PRN PRN Reason: Opioid Reversal Nitroglycerin (Nitrostat) 0.4 mg SUBLINGUAL Q5M PRN PRN Reason: Chest Pain Pantoprazole Sodium (Protonix) 40 mg PO TID PRN PRN Reason: Heartburn Last Admin: 09/03/19 10:59 Dose: 40 mg Documented by: Potassium Chloride (K-Dur 20) 20 meq PO BID [facility] Last Admin: 09/05/19 08:55 Dose: 20 meq Documented by: Senna/Docusate Sodium (Senokot-S) 2 each PO BID [facility] Last Admin: 09/05/19 08:54 Dose: 2 each Documented by: Sertraline HCl (Zoloft) 100 mg PO HS [facility] Last Admin: 09/04/19 20:40 Dose: 100 mg Documented by: Triamcinolone Acetonide (Kenalog) 1 applic TOPICAL BID PRN PRN Reason: Itching Vitamin E (Vitamin E) 400 unit PO DAILY@1200 [facility] Last Admin: 09/05/19 11:58 Dose: 400 unit Documented by: Warfarin Sodium (Coumadin) 3.5 mg PO DAILY@1800 [facility]; Protocol Last Admin: 09/05/19 17:51 Dose: 3.5 mg Documented by: Physical examination: VITAL SIGNS: 98.4, 80, 18, 1 or 2% stage II, 97% room air GENERAL: Laying in bed, awake EYES: Pupils equal. Conjunctiva pale. HEENT: External appearance of nose and ears normal, oral cavity grossly normal, decreased hearing. NECK: JVD unable to assess, mass not palpable. HEART: First and second heart sounds are normal; no edema. LUNGS: Respiratory rate increased, decreased breath sounds. Some wheezing. ABDOMEN: Soft, nontender, liver spleen not palpable, no masses palpable. PSYCH: Alert and oriented x3; mood and affect slightly anxious NEUROLOGICAL: Cranial nerves grossly intact; no facial asymmetry, decreased power of the right side. INVESTIGATIONS, reviewed in the clinical context: Sodium 125 potassium 3.5 bun 33 creatinine 1.46 Previous testing White count 10.3 hemoglobin 13.6 platelets 228 INR 1.4 potassium 4.2 creatinine 0.99 EKG tracing personally reviewed by me-atrial fibrillation Chest x-ray film personally reviewed by me-cardiomegaly no obvious venous prominence -August 29 were bun of 14 and creatinine 1.39, troponin I 0.145, proBNP 8400 Assessment: -Acute on chronic congestive heart failure / systolic dysfunction EF 40% from underlying coronary artery disease, patient probably is a increased end- diastolic pressure given that x-rays not showing florid edema.-Improved -Acute kidney injury, prerenal from diuresis -Coronary artery disease with successful stenting to the obtuse marginal and LAD. 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 On IV Lasix per cardiology. Follow renal function. We'll schedule DuoNeb regularly. Add inhaled steroids. Discussed with patient
[2019-09-05] MEDS: SERTRALINE 100 MG TAB PO SCH (20:11)
[2019-09-05] MEDS: MELATONIN 3 MG TABLET PO SCH (20:11)
[2019-09-05] MEDS: MONTELUKAST 10 MG TAB PO SCH (20:11)
[2019-09-05] MEDS: ASPIRIN 81 MG PO SCH (20:11)
[2019-09-05 20:22] LABS: Glucose,Whole Blood 253 mg/dL (75-99)
[2019-09-06] MEDS: ACETAMINOPHEN TAB 325 MG TAB PO PRN (03:55)
[2019-09-06 06:18] LABS: Glucose,Whole Blood 187 mg/dL (75-99)
[2019-09-06] MEDS: INSULIN ASPART (NovoLOG) 100 UNIT/ML VIAL SQ SCH ×3 (06:19→17:40)
[2019-09-06] MEDS: METHADONE 5 MG TAB PO SCH ×2 (06:20→15:58)
[2019-09-06 07:31] LABS: INR 1.5 (<1.2); Prothrombin Time 14.6 sec (9.0-12.0)
[2019-09-06 07:36] LABS: Calcium 7.9 mg/dL (8.4-10.2); Potassium 3.4 mmol/L (3.5-5.1)
[2019-09-06] MEDS: IPRATROPIUM-ALBUTEROL 3 ML NEB INHALATION SCH ×4 (08:10→19:49)
[2019-09-06] MEDS: BUDESONIDE 1 MG/2 ML NEBU INHALATION SCH ×2 (08:10→19:49)
[2019-09-06] MEDS: METOPROLOL TARTRATE 50 MG TAB PO SCH (08:54)
[2019-09-06] MEDS: LOSARTAN 25 MG TAB PO SCH (08:54)
[2019-09-06] MEDS: SENNOSIDES-DOCUSATE SODIUM 1 EACH TAB PO SCH (08:54)
[2019-09-06] MEDS: MAGNESIUM OXIDE 400 MG TAB PO SCH (08:54)
[2019-09-06] MEDS: CLOPIDOGREL 75 MG TAB PO SCH (08:54)
[2019-09-06] MEDS: FUROSEMIDE 10 MG/ML 4 ML VIAL IV SCH ×2 (08:54→15:58)
[2019-09-06] MEDS: ATORVASTATIN 40 MG TAB PO SCH (08:55)
[2019-09-06] MEDS: acetaZOLAMIDE 250 MG TAB PO SCH (08:55)
[2019-09-06] MEDS: POTASSIUM CHLORIDE ER 20 MEQ TAB.ER PO SCH (08:55)
--- NOTE | 2019-09-06 09:16 | XR ---
EXAMINATION TYPE: XR chest 2V DATE OF EXAM: 09/06/2019 COMPARISON: 09/02/2019 TECHNIQUE: PA and lateral views submitted. HISTORY: Shortness of breath FINDINGS: Heart size prominent with mild coarsened interstitium and biapical pleural thickening. No pneumothora x. Sclerotic density involving the left humeral head likely bone island. Subsegmental changes at both lung bases. Degenerative change of the spine. IMPRESSION: 1. Cardiomegaly noted. Mildly prominent interstitium appears similar to the prior exam may represent a degree of underlying chronic interstitial lung disease, pneumonitis or venous congestion.
[2019-09-06] MEDS: DICLOFENAC SODIUM GEL 100 GM TUBE TOPICAL SCH ×3 (09:51→17:41)
[2019-09-06 12:16] LABS: Glucose,Whole Blood 295 mg/dL (75-99)
[2019-09-06] MEDS: CYANOCOBALAMIN 500 MCG TAB PO SCH (12:22)
[2019-09-06] MEDS: VITAMIN E (DL,TOCOPHERYL ACET) 400 UNIT CAP PO SCH (12:22)
--- NOTE | 2019-09-06 14:28 | P.PN ---
Subjective Progress Note Date: 09/06/19 This is a pleasant 79-year-old gentleman who follows regularly with Dr. Jessi Gardner in the office. He has a documented history of ischemic cardiomyopathy, hypertension, hyperlipidemia, PAD and PVD, CVA, chronic atrial fibrillation, patient recently underwent a cardiac catheterization with subsequ ent iliac stenting, LAD stenting, and circumflex stenting with and pelvis support on August 26. He was discharged home, he states that he ate the initial day after discharge he felt fine. Subsequent to that he began to feel short of breath, and started to notice significant peripheral edema. His diuretics were held on discharge because of worsening renal function during his hospitalization. His chest x-ray on presentation here showed cardiomegaly with mild congestive heart failure. EKG showed atrial fibrillation with rapid ventricular response, nonspecific ST-T wave changes. Blood pressure 128/50, heart rate 110, respirations 20, 93% on 3 L of oxygen. White blood cell count 10.3, hemoglobin 13.6, platelet count 228. Sodium 134, potassium 4.2, BUN 32, creatinine 0.9. This morning the sodium is 132, potassium 3.4, BUN 26, creatinine 1.0. Troponin 0.14, BNP level 8400. Patient was initiated on IV Lasix in the emergency room and has been diuresing well. At the time of my examination he denied any chest discomfort, still felt quite short of breath. And was complaining of some mild abdominal fullness, that he has not moved his bowels since Monday. 09/04/2019 Patient was seen and examined this morning, he does feel significantly better overall today. He has diuresed well through the night although her weight is not reflective of this. Blood pressure 118/60 with a heart rate in the 60s, 92% on room air. Sodium 128, potassium 3.4, BUN 28 and creatinine 1.3. Echocardio gram with Doppler study was performed which revealed an ejection fraction of 30- 35%. 09/05/2019 Patient seen and examined this morning, he states that he's feeling better every day, but continues to have a significant amount of wheezing, still becomes quite short of breath walking back from the bathroom. Blood pressure 102/62, heart rate in the 80s, 97% on room air. Sodium 125, potassium 3.5, BUN 33, creatinine 1.4. 09/06/2019 Patient seen and examined this morning, complaining of constipation. Diuresed well through the night last night. He does admit that his breathing is improving, but not back to his normal. Blood pressure 100/60 with a heart rate in the 60s, 96% on 3 L of oxygen. Sodium 124, potassium 3.4, BUN 37, creatinine 1.5. Objective - Vital Signs Vital signs: Vital Signs Temp 97.9 F 09/06/19 11:51 Pulse 63 09/06/19 11:51 Resp 16 09/06/19 11:51 BP 101/57 09/06/19 11:51 Pulse Ox 96 09/06/19 11:51 Intake & Output 09/05/19 09/06/19 09/06/19 18:59 06:59 18:59 Intake Total 720 225 Output Total 703 2500 Balance 17 -2500 225 Weight 113.6 kg Intake: Oral 720 225 Output: Urine 700 2500 Stool 3 Other: Voiding Method Indwelling Catheter Indwelling Catheter # Voids 1 - Exam PHYSICAL EXAMINATION: GENERAL: 79-year-old gentleman in no acute distress at the time of my examination HEENT: Head is atraumatic, normocephalic. Pupils equal, round. Sclera anicteric. Conjunctiva are clear. Mucous membranes of the mouth are moist. Neck is supple. There is no elevated jugular venous pressure. No carotid bruit is heard. HEART EXAMINATION: S1 and S2 irregularly irregular a systolic murmur is heard CHEST EXAMINATION: Lungs revealed diffuse scattered wheezes throughout improved from yesterday ABDOMEN: Soft, obese, nontender. Bowel sounds are heard. No organomegaly noted. EXTREMITIES: 2+ peripheral pulses with no evidence of peripheral edema and no calf tenderness noted. NEUROLOGIC patient is awake, alert and oriented 3 . - Labs CBC & Chem 7: 09/02/19 13:12 09/06/19 06:31 Labs: Abnormal Lab Results - Last 24 Hours (Table) 09/05/19 09/05/19 09/06/19 Range/Units 16:50 20:21 06:15 PT (9.0-12.0) sec INR (<1.2) Sodium (137-145) mmol/L Potassium (3.5-5.1) mmol/L Chloride (98-107) mmol/L Carbon Dioxide (22-30) mmol/L BUN (9-20) mg/dL Creatinine (0.66-1.25) mg/dL Glucose (74-99) mg/dL POC Glucose (mg/dL) 348 H 253 H 187 H (75-99) mg/dL Calcium (8.4-10.2) mg/dL 09/06/19 09/06/19 09/06/19 Range/Units 06:31 06:31 12:15 PT 14.6 H (9.0-12.0) sec INR 1.5 H (<1.2) Sodium 124 L (137-145) mmol/L Potassium 3.4 L (3.5-5.1) mmol/L Chloride 80 L (98-107) mmol/L Carbon Dioxide 35 H (22-30) mmol/L BUN 37 H (9-20) mg/dL Creatinine 1.56 H (0.66-1.25) mg/dL Glucose 196 H (74-99) mg/dL POC Glucose (mg/dL) 295 H (75-99) mg/dL Calcium 7.9 L (8.4-10.2) mg/dL Assessment and Plan Plan: Assessment and plan #1 systolic congestive heart failure acute on chronic #2 recent stenting of the LAD and circumflex artery with and pelvis support one week ago #3 PAD and PVD with a recent iliac stenting one week ago #4 hypertension #5 hyperlipidemia #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 fib #8 ischemic cardiomyopathy #9 hypokalemia Plan Patient is currently on IV Lasix 40 mg every 8 hourly. Which we will continue. We will continue to monitor the intake and output along with daily weights and daily lytes BUN and creatinine. DNP note has been reviewed, I agree with a documented findings and plan of care. Patient was seen and examined.
[2019-09-06] MEDS: PSYLLIUM HUSK 100% 6 GM PACKET PO SCH (15:58)
[2019-09-06 16:49] LABS: Glucose,Whole Blood 261 mg/dL (75-99)
[2019-09-06] MEDS: WARFARIN 1 MG TAB PO SCH (17:45)
[2019-09-06 20:30] LABS: Glucose,Whole Blood 298 mg/dL (75-99)
--- NOTE | 2019-09-06 22:37 | P.PN ---
Progress Note - Text Progress Note Date: 09/06/19 Chief Complaint: Shortness of breath History of presenting complaint: This is a 79-year-old patient of Dr. Yosvany morrow whose chronic stable medical conditions include diabetes, hyperlipidemia, hypertension, fibromyalgia, right- sided weakness from prior stroke and peripheral neuropathy, atrial fibrillation. previously also's had a lumbar L3-L4 epidural abscess , carotid artery disease with prior stent, depression uses a walker to baseline COPD presbyesophagus causing chronic dysphagia. On August 25 patient underwent cardiac catheterization and was found critical stenosis of LAD 90%, obtuse marginal same and circumflex. Successful intervention was done to the LAD and obtuse marginal. Circumflex will be addressed in the future. Patient left iliac artery dissection and Dr. Mcfadden carried out an urgent stenting. Patient was discharged on August 29. Patient also had acute kidney injury. Creatinine had gone from 0.8-1.7. With hydration did come down to 1.3 before discharge. Patient came back to ER for last 2 days worsening short of breath. No edema. He had called his manager billing Dr. BEN Gardner and was told to increase his Lasix. Patient has some clear sputum. No fever no chills. Admitted for CHF exacerbation.-Started on IV Lasix. Today-breathing and wheezing better. Did tolerate some diet. Has been on IV Lasix per cardiology. Once a laxative. Review of systems: Was done for constitutional, cardiovascular, GI, pulmonary. relevant finding as above Active Medications Acetaminophen (Tylenol Tab) 650 mg PO Q6HR PRN PRN Reason: Mild Pain or Fever > 100.5 Last Admin: 09/06/19 03:55 Dose: 650 mg Documented by: Acetazolamide (Diamox) 250 mg PO BID [facility] Last Admin: 09/06/19 08:55 Dose: 250 mg Documented by: Albuterol/Ipratropium (Duoneb 0.5 Mg-3 Mg/3 Ml Soln) 3 ml INHALATION RT-TID PRN PRN Reason: Shortness Of Breath Albuterol/Ipratropium (Duoneb 0.5 Mg-3 Mg/3 Ml Soln) 3 ml INHALATION RT-QID [facility] Last Admin: 09/06/19 19:49 Dose: Not Given Documented by: Aspirin (Aspirin) 81 mg PO HS [facility] Last Admin: 09/05/19 20:11 Dose: 81 mg Documented by: Atorvastatin Calcium (Lipitor) 40 mg PO DAILY [facility] Last Admin: 09/06/19 08:55 Dose: 40 mg Documented by: Budesonide (Pulmicort) 1 mg INHALATION RT-BID [facility] Last Admin: 09/06/19 19:49 Dose: Not Given Documented by: Clopidogrel Bisulfate (Plavix) 75 mg PO DAILY [facility] Last Admin: 09/06/19 08:54 Dose: 75 mg Documented by: Cyanocobalamin (Vitamin B-12) 1,000 mcg PO DAILY@1200 [facility] Last Admin: 09/06/19 12:22 Dose: 1,000 mcg Documented by: Cyclobenzaprine HCl (Flexeril) 10 mg PO TID PRN PRN Reason: Muscle Pain Diclofenac Sodium (Voltaren Gel) 2 gm TOPICAL QID [facility] Last Admin: 09/06/19 17:41 Dose: Not Given Documented by: Fluticasone Propionate (Flonase Nasal [place]) 2 spray EA NOSTRIL DAILY PRN PRN Reason: Allergy Symptoms Furosemide (Lasix) 40 mg IV Q8HR [facility] Last Admin: 09/06/19 15:58 Dose: 40 mg Documented by: Hydroxyzine HCl (Atarax) 25 mg PO TID PRN PRN Reason: Itching Insulin Aspart (Novolog) 0 unit SQ [facility]; Protocol Last Admin: 09/06/19 17:40 Dose: 6 unit Documented by: Losartan Potassium (Cozaar) 25 mg PO DAILY [facility] Last Admin: 09/06/19 08:54 Dose: 25 mg Documented by: Magnesium Oxide (Mag-Ox) 400 mg PO DAILY [facility] Last Admin: 09/06/19 08:54 Dose: 400 mg Documented by: Melatonin (Melatonin) 3 mg PO [facility] Last Admin: 09/05/19 20:11 Dose: 3 mg Documented by: Methadone HCl (Dolophine) 5 mg PO Q8H [facility] Last Admin: 09/06/19 15:58 Dose: 5 mg Documented by: Metoprolol Tartrate (Lopressor) 50 mg PO BID [facility] Last Admin: 09/06/19 08:54 Dose: 50 mg Documented by: Montelukast Sodium (Singulair) 10 mg PO [facility] Last Admin: 09/05/19 20:11 Dose: 10 mg Documented by: Naloxone HCl (Narcan) 0.2 mg IV Q2M PRN PRN Reason: Opioid Reversal Nitroglycerin (Nitrostat) 0.4 mg SUBLINGUAL Q5M PRN PRN Reason: Chest Pain Pantoprazole Sodium (Protonix) 40 mg PO TID PRN PRN Reason: Heartburn Last Admin: 09/03/19 10:59 Dose: 40 mg Documented by: Potassium Chloride (K-Dur 20) 20 meq PO BID [facility] Last Admin: 09/06/19 08:55 Dose: 20 meq Documented by: Psyllium Hydrophilic Mucilloid (Metamucil) 6 gm PO BID [facility] Last Admin: 09/06/19 15:58 Dose: 6 gm Documented by: Senna/Docusate Sodium (Senokot-S) 2 each PO BID [facility] Last Admin: 09/06/19 08:54 Dose: 2 each Documented by: Sertraline HCl (Zoloft) 100 mg PO HS [facility] Last Admin: 09/05/19 20:11 Dose: 100 mg Documented by: Triamcinolone Acetonide (Kenalog) 1 applic TOPICAL BID PRN PRN Reason: Itching Vitamin E (Vitamin E) 400 unit PO DAILY@1200 [facility] Last Admin: 09/06/19 12:22 Dose: 400 unit Documented by: Warfarin Sodium (Coumadin) 3.5 mg PO DAILY@1800 [facility]; Protocol Last Admin: 09/06/19 17:45 Dose: 3.5 mg Documented by: Physical examination: VITAL SIGNS: 97.9, 63, 16, blood pressure 101/57, 96% on 3 L GENERAL: Laying in bed, awake EYES: Pupils equal. Conjunctiva pale. HEENT: External appearance of nose and ears normal, oral cavity grossly normal, decreased hearing. NECK: JVD unable to assess, mass not palpable. HEART: First and second heart sounds are normal; no edema. LUNGS: Respiratory rate increased, decreased breath sounds. Some wheezing. ABDOMEN: Soft, nontender, liver spleen not palpable, no masses palpable. PSYCH: Alert and oriented x3; mood and affect slightly anxious NEUROLOGICAL: Cranial nerves grossly intact; no facial asymmetry, decreased power of the right side. INVESTIGATIONS, reviewed in the clinical context: Sodium 124 potassium 3.4 bun 37 creatinine 1.56 Chest x-ray film personally reviewed by me-possibly venous prominence versus some chronic changes Previous testing White count 10.3 hemoglobin 13.6 platelets 228 INR 1.4 potassium 4.2 creatinine 0.99 EKG tracing personally reviewed by me-atrial fibrillation Chest x-ray film personally reviewed by me-cardiomegaly no obvious venous prominence -August 29 were bun of 14 and creatinine 1.39, troponin I 0.145, proBNP 8400 Assessment: -Acute on chronic congestive heart failure / systolic dysfunction EF 40% from underlying coronary artery disease, patient probably is a increased end- diastolic pressure given that x-rays not showing florid edema.-Improved -Acute kidney injury, prerenal from diuresis -Coronary artery disease with successful stenting to the obtuse marginal and LAD. 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 Laxatives added. Care discussed with the patient.
[2019-09-07] MEDS: FUROSEMIDE 10 MG/ML 4 ML VIAL IV SCH ×2 (00:18→09:12)
[2019-09-07] MEDS: ASPIRIN 81 MG PO SCH (01:36)
[2019-09-07] MEDS: acetaZOLAMIDE 250 MG TAB PO SCH ×2 (01:36→09:12)
[2019-09-07] MEDS: MONTELUKAST 10 MG TAB PO SCH ×2 (01:37→20:52)
[2019-09-07] MEDS: MELATONIN 3 MG TABLET PO SCH ×2 (01:37→20:51)
[2019-09-07] MEDS: METOPROLOL TARTRATE 50 MG TAB PO SCH ×3 (01:37→20:52)
[2019-09-07] MEDS: PSYLLIUM HUSK 100% 6 GM PACKET PO SCH ×3 (01:37→20:52)
[2019-09-07] MEDS: POTASSIUM CHLORIDE ER 20 MEQ TAB.ER PO SCH ×3 (01:37→20:52)
[2019-09-07] MEDS: SENNOSIDES-DOCUSATE SODIUM 1 EACH TAB PO SCH ×3 (01:38→20:52)
[2019-09-07] MEDS: DICLOFENAC SODIUM GEL 100 GM TUBE TOPICAL SCH ×4 (01:38→17:56)
[2019-09-07] MEDS: SERTRALINE 100 MG TAB PO SCH ×2 (01:38→20:51)
[2019-09-07] MEDS: METHADONE 5 MG TAB PO SCH ×4 (01:39→20:52)
[2019-09-07] MEDS: INSULIN ASPART (NovoLOG) 100 UNIT/ML VIAL SQ SCH ×5 (04:51→20:51)
[2019-09-07 06:13] LABS: Glucose,Whole Blood 202 mg/dL (75-99)
[2019-09-07 07:03] LABS: INR 1.4 (<1.2)
[2019-09-07 07:04] LABS: Calcium 8.1 mg/dL (8.4-10.2); Potassium 3.3 mmol/L (3.5-5.1)
[2019-09-07] MEDS: BUDESONIDE 1 MG/2 ML NEBU INHALATION SCH ×2 (08:45→19:51)
[2019-09-07] MEDS: IPRATROPIUM-ALBUTEROL 3 ML NEB INHALATION SCH ×4 (08:45→19:50)
[2019-09-07] MEDS: ATORVASTATIN 40 MG TAB PO SCH (09:12)
[2019-09-07] MEDS: LOSARTAN 25 MG TAB PO SCH (09:12)
[2019-09-07] MEDS: MAGNESIUM OXIDE 400 MG TAB PO SCH (09:12)
[2019-09-07] MEDS: CLOPIDOGREL 75 MG TAB PO SCH (09:12)
[2019-09-07 12:37] LABS: Glucose,Whole Blood 329 mg/dL (75-99)
[2019-09-07] MEDS: CYANOCOBALAMIN 500 MCG TAB PO SCH (13:03)
[2019-09-07] MEDS: LACTULOSE 20 GM/30 ML CUP PO PRN (13:04)
[2019-09-07] MEDS: VITAMIN E (DL,TOCOPHERYL ACET) 400 UNIT CAP PO SCH (13:04)
--- NOTE | 2019-09-07 13:38 | P.NPCON ---
History of Present Illness - Reason for Consult acute renal failure, hyponatremia - History of Present Illness Reason for consultation: Acute kidney injury and hyponatremia History of present illness: Patient is a 79-year-old male seen in renal consultation for acute kidney injury and hyponatremia. Patient's sodium level was 134 on admission on September 01 and has been progressively trending down. It is down to 124 this morning. Creatinine was 1 on admission and peaked at 1.56 this admission. It is 1.32 today. Patient presented to the hospital with shortness of breath. A week prior to admission he had an intra-aortic balloon pump and iliac artery stent placed. Patient's Lasix was adjusted prior to admission but due to no improvement in his symptoms he came to the hospital. Patient has been receiving IV Lasix this admission. He has been maintained on 40 mg IV every 8 hours and was decreased to 40 mg IV twice daily this morning. Patient's chest x-ray is not significant for volume overload. He admits to constipation. He denies use of nonsteroidals. Denies vomiting or diarrhea. Oral intake has been fair. Echo cardigan revealed ejection fraction of 30-35%. He has been drinking quite a bit of water. Denies chest pain. Patient does have history of diabetes and is maintained on insulin outpatient. He is not on any thiazide diuretics. No edema in the lower extremities. No fever or chills. Vital signs are stable. General: The patient appeared well nourished and normally developed. HEENT: Head exam is unremarkable. Neck is without jugular venous distension. LUNGS: Breath sounds decreased. HEART: Rate and Rhythm are regular. ABDOMEN: Soft, nontender. EXTREMITITES: No clubbing, cyanosis, or edema. 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 History of Any Multi-Drug Resistant Organisms: None Reported Past Surgical History: Back Surgery, Heart Catheterization With Stent, Orthopedic Surgery, Prostate Surgery Additional Past Surgical History / Comment(s): unsuccessful cardioversion in 2017, endoscopic sinus surgery/polypectomy, colonoscopy, TURP, bilateral hydrocelectomy, rt elbow surgery, toñito cataracts, laminectomy, recent stent placement 08/26/2019 2 cardiac stent, 1 stent ilitac artery Past Anesthesia/Blood Transfusion Reactions: No Reported Reaction Date of Last Stent Placement:: 2019 Past Psychological History: Anxiety, Depression Additional Psychological History / Comment(s): . Smoking Status: Former smoker Past Alcohol Use History: None Reported Additional Past Alcohol Use History / Comment(s): Pt started smoking in 1957 and quit in 1989 Past Drug Use History: None Reported - Past Family History Mother Family Medical History: No Reported History Father Family Medical History: Cancer Additional Family Medical History / Comment(s): Father had prostrate cancer. Medications and Allergies Home Medications Medication Instructions Recorded Confirmed Type Triamcinolone 0.1% Cream [Kenalog 1 applic TOPICAL BID PRN 07/08/17 09/02/19 History 0.1% Cream] Methadone [Dolophine] 5 mg PO Q8H #9 tab 09/13/17 09/02/19 Rx Omeprazole [PriLOSEC] 20 mg PO TID PRN 09/20/17 09/02/19 History Cyanocobalamin (Vitamin B-12) 1,000 mcg PO DAILY@1200 10/31/18 09/02/19 History [Vitamin B-12] Cyclobenzaprine [Flexeril] 10 mg PO TID PRN 10/31/18 09/02/19 History Diclofenac Sodium [Voltaren Gel] 2 gram TOPICAL QID 10/31/18 09/02/19 History Fluticasone Nasal [place] [Flonase 2 spr EA NOSTRIL DAILY PRN 10/31/18 09/02/19 History Nasal [place]] Ipratropium-Albuterol Nebulize 3 ml INHALATION RT-TID PRN 10/31/18 09/02/19 History [Duoneb 0.5 mg-3 mg/3 ml Soln] Magnesium Oxide [Mag-Ox] 250 mg PO DAILY 10/31/18 09/02/19 History Montelukast [Singulair] 10 mg PO HS 10/31/18 09/02/19 History Nitroglycerin Sl Tabs [Nitrostat] 0.4 mg SUBLINGUAL Q5M PRN 10/31/18 09/02/19 History Sertraline [Zoloft] 100 mg PO HS 10/31/18 09/02/19 History Vitamin E 100 unit PO DAILY@1200 10/31/18 09/02/19 History hydrOXYzine HCL [Atarax] 25 mg PO TID PRN 10/31/18 09/02/19 History Aspirin EC [Ecotrin Low Dose] 81 mg PO HS #0 11/08/18 09/02/19 Rx Melatonin 3 mg PO HS tablet 11/08/18 09/02/19 Rx Metoprolol Tartrate [Lopressor] 50 mg PO BID #60 tab 11/08/18 09/02/19 Rx Insulin Glargine,Hum.rec.anlog 56 units SQ DAILY 08/23/19 09/02/19 History [[place] Solostar] Potassium Chloride ER [K-Dur 20] 20 meq PO BID 08/23/19 09/02/19 History Atorvastatin [Lipitor] 40 mg PO DAILY #30 tab 08/30/19 09/02/19 Rx Clopidogrel [Plavix] 75 mg PO DAILY #30 tab 08/30/19 09/02/19 Rx Furosemide [Lasix] 40 mg PO BID@0900,1600 #60 tablet 08/30/19 09/02/19 Rx Losartan [Cozaar] 25 mg PO DAILY #30 tab 08/30/19 09/02/19 Rx Insulin Aspart [NovoLOG Flexpen] See Protocol SQ TID 09/02/19 09/02/19 History Sennosides-Docusate Sodium 2 tab PO BID 09/02/19 09/02/19 History [Senokot-S] Vit C/E/Zn/Coppr/Lutein/Zeaxan 1 cap PO DAILY 09/02/19 09/02/19 History [Preservision Areds 2 Softgel] Warfarin Sodium 2.5 mg PO HS 09/02/19 09/02/19 History Allergies Allergy/AdvReac Type Severity Reaction Status Date / Time Sulfa (Sulfonamide Allergy Rash/Hives Verified 09/02/19 12:51 Antibiotics) Physical Exam Vitals: Vital Signs Temp Pulse Pulse Resp BP Pulse Ox 09/07/19 08:59 72 09/07/19 08:46 76 09/07/19 08:00 98 F 63 16 126/71 92 L 09/07/19 04:00 97.7 F 77 18 117/72 98 09/07/19 00:00 98.1 F 65 17 97/63 93 L 09/06/19 20:00 98.0 F 65 16 107/67 98 09/06/19 16:00 97.7 F 65 16 115/71 94 L 09/06/19 15:44 72 09/06/19 15:29 68 Intake and Output 09/06/19 09/07/19 09/07/19 22:59 06:59 14:59 Intake Total 240 Output Total 1600 1450 Balance -1360 -1450 Intake: Oral 240 Output: Urine 1600 1450 Uretheral ([place]) 450 Other: Voiding Method Indwelling Catheter Indwelling Catheter Indwelling Catheter Weight 115.5 kg Results - Lab Results Most recent lab results Calcium 8.1 mg/dL (8.4-10.2) L 09/07/19 06:28 Magnesium 1.9 mg/dL (1.6-2.3) 09/02/19 13:12 09/02/19 13:12 09/07/19 06:28 Assessment and Plan Plan: Assessment: 1. Acute kidney injury mostly prerenal secondary to cardiorenal syndrome. Baseline creatinine near 1. Creatinine peaked at 1.56 this admission and is 1.32 today. 2. Acute on chronic systolic CHF with ejection fraction of 30-35%. 3. Volume overload. Improved with diuresis. 4. Hyponatremia. Etiology is diuresis and poor solute intake. 5. Hypokalemia secondary to diuresis. 6. Insulin-dependent diabetes mellitus. Plan: 1200 mL fluid restriction. Encourage oral intake, particularly protein. Ensure 3 times daily. Maintain potassium supplementation. Hold Lasix and Diamox. Repeat sodium level this evening. Continue to monitor renal function and urine output. Check serum and urine osmolality and urine sodium. Check TSH. Thank you for the consultation. I will continue to follow the patient with you during his hospital stay.
--- NOTE | 2019-09-07 14:26 | P.PN ---
Subjective Progress Note Date: 09/07/19 This is a pleasant 79-year-old gentleman who follows regularly with Dr. Jessi Gardner in the office. He has a documented history of ischemic cardiomyopathy, hypertension, hyperlipidemia, PAD and PVD, CVA, chronic atrial fibrillation, patient recently underwent a cardiac catheterization with subsequ ent iliac stenting, LAD stenting, and circumflex stenting with and pelvis support on August 26. He was discharged home, he states that he ate the initial day after discharge he felt fine. Subsequent to that he began to feel short of breath, and started to notice significant peripheral edema. His diuretics were held on discharge because of worsening renal function during his hospitalization. His chest x-ray on presentation here showed cardiomegaly with mild congestive heart failure. EKG showed atrial fibrillation with rapid ventricular response, nonspecific ST-T wave changes. Blood pressure 128/50, heart rate 110, respirations 20, 93% on 3 L of oxygen. White blood cell count 10.3, hemoglobin 13.6, platelet count 228. Sodium 134, potassium 4.2, BUN 32, creatinine 0.9. This morning the sodium is 132, potassium 3.4, BUN 26, creatinine 1.0. Troponin 0.14, BNP level 8400. Patient was initiated on IV Lasix in the emergency room and has been diuresing well. At the time of my examination he denied any chest discomfort, still felt quite short of breath. And was complaining of some mild abdominal fullness, that he has not moved his bowels since Monday. 09/04/2019 Patient was seen and examined this morning, he does feel significantly better overall today. He has diuresed well through the night although her weight is not reflective of this. Blood pressure 118/60 with a heart rate in the 60s, 92% on room air. Sodium 128, potassium 3.4, BUN 28 and creatinine 1.3. Echocardio gram with Doppler study was performed which revealed an ejection fraction of 30- 35%. 09/05/2019 Patient seen and examined this morning, he states that he's feeling better every day, but continues to have a significant amount of wheezing, still becomes quite short of breath walking back from the bathroom. Blood pressure 102/62, heart rate in the 80s, 97% on room air. Sodium 125, potassium 3.5, BUN 33, creatinine 1.4. 09/06/2019 Patient seen and examined this morning, complaining of constipation. Diuresed well through the night last night. He does admit that his breathing is improving, but not back to his normal. Blood pressure 100/60 with a heart rate in the 60s, 96% on 3 L of oxygen. Sodium 124, potassium 3.4, BUN 37, creatinine 1.5. 09/06: Patient continues to diurese well. Chest x-ray from yesterday revealed cardiomegaly. Mildly prominent esters tissue appears similar to prior exam may represent a degree of underlying chronic interstitial lung disease, pneumonitis or venous congestion. Repeat blood work reveals sodium 124, potassium 3.3, chloride 81, CO2 35, BUN 34 and creatinine 1.32. INR 1.4. Sodium has been on a down trend since admission. Consult will be added for nephrology. PHYSICAL EXAMINATION: GENERAL: 79-year-old gentleman in no acute distress at the time of my examination HEENT: Head is atraumatic, normocephalic. Pupils equal, round. Sclera anicteric. Conjunctiva are clear. Mucous membranes of the mouth are dry. Neck is supple. There is no elevated jugular venous pressure. HEART EXAMINATION: S1 and S2 irregularly irregular a systolic murmur is heard CHEST EXAMINATION: Lungs revealed diffuse scattered wheezes throughout improved from yesterday ABDOMEN: Soft, obese, nontender. Bowel sounds are heard. No organomegaly noted. [place] draining clear yue urine. EXTREMITIES: 2+ peripheral pulses with no evidence of peripheral edema and no calf tenderness noted. NEUROLOGIC patient is awake, alert and oriented 3 . Assessment #1 systolic congestive heart failure acute on chronic #2 recent stenting of the LAD and circumflex artery with and pelvis support one week ago #3 PAD and PVD with a recent iliac stenting one week ago #4 hypertension #5 hyperlipidemia #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 fib #8 ischemic cardiomyopathy #9 hypokalemia Plan Consult nephrology for hyponatremia Discontinue IV Lasix as discussed with Dr. Cunningham Continue to monitor the intake and output, daily weights and daily lytes BUN and creatinine Continue Plavix, Lipitor, losartan and Lopressor Further recommendations to follow based upon clinical course. Nurse practitioner note has been reviewed, I agree with documented findings and plan of care. Patient was seen and examined. Objective - Vital Signs Vital signs: Vital Signs Temp 98 F 07/11/20 08:00 Pulse 72 09/07/19 08:59 Resp 16 09/07/19 08:00 BP 126/71 09/07/19 08:00 Pulse Ox 92 L 09/07/19 08:00 Intake & Output 09/06/19 09/07/19 09/07/19 18:59 06:59 18:59 Intake Total 945 Output Total 1600 1450 Balance -655 -1450 Weight 115.5 kg Intake: Oral 945 Output: Urine 1600 1450 Uretheral ([place]) 450 Other: Voiding Method Indwelling Catheter Indwelling Catheter Indwelling Catheter - Labs CBC & Chem 7: 09/02/19 13:12 09/07/19 06:28 Labs: Abnormal Lab Results - Last 24 Hours (Table) 09/06/19 09/06/19 09/06/19 Range/Units 12:15 16:48 20:29 PT (9.0-12.0) sec INR (<1.2) Sodium (137-145) mmol/L Potassium (3.5-5.1) mmol/L Chloride (98-107) mmol/L Carbon Dioxide (22-30) mmol/L BUN (9-20) mg/dL Creatinine (0.66-1.25) mg/dL Glucose (74-99) mg/dL POC Glucose (mg/dL) 295 H 261 H 298 H (75-99) mg/dL Calcium (8.4-10.2) mg/dL 09/07/19 09/07/19 09/07/19 Range/Units 06:11 06:28 06:28 PT 14.0 H (9.0-12.0) sec INR 1.4 H (<1.2) Sodium 124 L (137-145) mmol/L Potassium 3.3 L (3.5-5.1) mmol/L Chloride 81 L (98-107) mmol/L Carbon Dioxide 35 H (22-30) mmol/L BUN 34 H (9-20) mg/dL Creatinine 1.32 H (0.66-1.25) mg/dL Glucose 201 H (74-99) mg/dL POC Glucose (mg/dL) 202 H (75-99) mg/dL Calcium 8.1 L (8.4-10.2) mg/dL
[2019-09-07 17:27] LABS: Glucose,Whole Blood 241 mg/dL (75-99)
[2019-09-07] MEDS: WARFARIN 5 MG TAB PO SCH (17:55)
[2019-09-07 20:40] LABS: Glucose,Whole Blood 355 mg/dL (75-99)
[2019-09-07] MEDS ORDERED: FUROSEMIDE 10 MG/ML 4 ML VIAL IV SCH (21:00)
--- NOTE | 2019-09-07 22:11 | P.PN ---
Progress Note - Text Progress Note Date: 09/07/19 Chief Complaint: Shortness of breath History of presenting complaint: This is a 79-year-old patient of Dr. Yosvany morrow whose chronic stable medical conditions include diabetes, hyperlipidemia, hypertension, fibromyalgia, right- sided weakness from prior stroke and peripheral neuropathy, atrial fibrillation. previously also's had a lumbar L3-L4 epidural abscess , carotid artery disease with prior stent, depression uses a walker to baseline COPD presbyesophagus causing chronic dysphagia. On August 25 patient underwent cardiac catheterization and was found critical stenosis of LAD 90%, obtuse marginal same and circumflex. Successful intervention was done to the LAD and obtuse marginal. Circumflex will be addressed in the future. Patient left iliac artery dissection and Dr. Mcfadden carried out an urgent stenting. Patient was discharged on August 29. Patient also had acute kidney injury. Creatinine had gone from 0.8-1.7. With hydration did come down to 1.3 before discharge. Patient came back to ER for last 2 days worsening short of breath. No edema. He had called his academic advisor Dr. BEN Gardner and was told to increase his Lasix. Patient has some clear sputum. No fever no chills. Admitted for CHF exacerbation.-Started on IV Lasix. Also COPD exacerbation started on bronchodilators and inhaled steroids. Today-. Eating better. Tolerating a diet. is visiting. Breathing improved. Review of systems: Was done for constitutional, cardiovascular, GI, pulmonary. relevant finding as above Active Medications Acetaminophen (Tylenol Tab) 650 mg PO Q6HR PRN PRN Reason: Mild Pain or Fever > 100.5 Last Admin: 09/06/19 03:55 Dose: 650 mg Documented by: Albuterol/Ipratropium (Duoneb 0.5 Mg-3 Mg/3 Ml Soln) 3 ml INHALATION RT-TID PRN PRN Reason: Shortness Of Breath Albuterol/Ipratropium (Duoneb 0.5 Mg-3 Mg/3 Ml Soln) 3 ml INHALATION RT-QID [facility] Last Admin: 09/07/19 19:50 Dose: 3 ml Documented by: Atorvastatin Calcium (Lipitor) 40 mg PO DAILY [facility] Last Admin: 09/07/19 09:12 Dose: 40 mg Documented by: Budesonide (Pulmicort) 1 mg INHALATION RT-BID [facility] Last Admin: 09/07/19 19:51 Dose: 1 mg Documented by: Clopidogrel Bisulfate (Plavix) 75 mg PO DAILY [facility] Last Admin: 09/07/19 09:12 Dose: 75 mg Documented by: Cyanocobalamin (Vitamin B-12) 1,000 mcg PO DAILY@1200 [facility] Last Admin: 09/07/19 13:03 Dose: 1,000 mcg Documented by: Cyclobenzaprine HCl (Flexeril) 10 mg PO TID PRN PRN Reason: Muscle Pain Diclofenac Sodium (Voltaren Gel) 2 gm TOPICAL QID [facility] Last Admin: 09/07/19 17:56 Dose: 2 gm Documented by: Fluticasone Propionate (Flonase Nasal [place]) 2 spray EA NOSTRIL DAILY PRN PRN Reason: Allergy Symptoms Hydroxyzine HCl (Atarax) 25 mg PO TID PRN PRN Reason: Itching Insulin Aspart (Novolog) 0 unit SQ ACHS [facility]; Protocol Last Admin: 09/07/19 20:51 Dose: 10 unit Documented by: Lactulose (Cephulac) 15 gm PO TID PRN PRN Reason: Constipation Last Admin: 09/07/19 13:04 Dose: 15 gm Documented by: Losartan Potassium (Cozaar) 25 mg PO DAILY [facility] Last Admin: 09/07/19 09:12 Dose: 25 mg Documented by: Magnesium Oxide (Mag-Ox) 400 mg PO DAILY [facility] Last Admin: 09/07/19 09:12 Dose: 400 mg Documented by: Melatonin (Melatonin) 3 mg PO [facility] Last Admin: 09/07/19 20:51 Dose: 3 mg Documented by: Methadone HCl (Dolophine) 5 mg PO Q8H [facility] Last Admin: 09/07/19 20:52 Dose: 5 mg Documented by: Metoprolol Tartrate (Lopressor) 50 mg PO BID [facility] Last Admin: 09/07/19 20:52 Dose: 50 mg Documented by: Montelukast Sodium (Singulair) 10 mg PO [facility] Last Admin: 09/07/19 20:52 Dose: 10 mg Documented by: Naloxone HCl (Narcan) 0.2 mg IV Q2M PRN PRN Reason: Opioid Reversal Nitroglycerin (Nitrostat) 0.4 mg SUBLINGUAL Q5M PRN PRN Reason: Chest Pain Pantoprazole Sodium (Protonix) 40 mg PO TID PRN PRN Reason: Heartburn Last Admin: 09/03/19 10:59 Dose: 40 mg Documented by: Potassium Chloride (K-Dur 20) 20 meq PO BID [facility] Last Admin: 09/07/19 20:52 Dose: 20 meq Documented by: Psyllium Hydrophilic Mucilloid (Metamucil) 6 gm PO BID [facility] Last Admin: 09/07/19 20:52 Dose: Not Given Documented by: Senna/Docusate Sodium (Senokot-S) 2 each PO BID [facility] Last Admin: 09/07/19 20:52 Dose: 2 each Documented by: Sertraline HCl (Zoloft) 100 mg PO HS [facility] Last Admin: 09/07/19 20:51 Dose: 100 mg Documented by: Triamcinolone Acetonide (Kenalog) 1 applic TOPICAL BID PRN PRN Reason: Itching Vitamin E (Vitamin E) 400 unit PO DAILY@1200 [facility] Last Admin: 09/07/19 13:04 Dose: 400 unit Documented by: Warfarin Sodium (Coumadin) 5 mg PO DAILY@1800 [facility]; Protocol Last Admin: 09/07/19 17:55 Dose: 5 mg Documented by: Physical examination: VITAL SIGNS: 98.2, 62, 16, 104/69, 98% on 2 L GENERAL: Laying in bed, awake EYES: Pupils equal. Conjunctiva pale. HEENT: External appearance of nose and ears normal, oral cavity grossly normal, decreased hearing. NECK: JVD unable to assess, mass not palpable. HEART: First and second heart sounds are normal; no edema. LUNGS: Respiratory rate increased, decreased breath sounds. Some wheezing. ABDOMEN: Soft, nontender, liver spleen not palpable, no masses palpable. PSYCH: Alert and oriented x3; mood and affect slightly anxious NEUROLOGICAL: Cranial nerves grossly intact; no facial asymmetry, decreased power of the right side. INVESTIGATIONS, reviewed in the clinical context: Sodium 124 potassium 3.3 bun 34 creatinine 1.22 Chest x-ray film personally reviewed by me-possibly venous prominence versus some chronic changes Previous testing White count 10.3 hemoglobin 13.6 platelets 228 INR 1.4 potassium 4.2 creatinine 0.99 EKG tracing personally reviewed by me-atrial fibrillation Chest x-ray film personally reviewed by me-cardiomegaly no obvious venous prominence -August 29 were bun of 14 and creatinine 1.39, troponin I 0.145, proBNP 8400 Assessment: -Acute on chronic congestive heart failure / systolic dysfunction EF 40% from underlying coronary artery disease, patient probably is a increased end- diastolic pressure given that x-rays not showing florid edema.-Improved -Acute kidney injury, prerenal from diuresis/cardiorenal syndrome -Coronary artery disease with successful stenting to the obtuse marginal and LAD. 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 Patient told to cut back on his free fluid intake. Has sodium was running low. Spoke to patient's at the bedside given update. Late in the evening also spoke to patient's daughter Bernadine and give her an update. Last be repeated tomorrow.
[2019-09-08] MEDS: DICLOFENAC SODIUM GEL 100 GM TUBE TOPICAL SCH ×5 (05:39→21:28)
[2019-09-08 06:19] LABS: Glucose,Whole Blood 205 mg/dL (75-99)
[2019-09-08] MEDS: METHADONE 5 MG TAB PO SCH ×3 (06:20→21:13)
[2019-09-08] MEDS: INSULIN ASPART (NovoLOG) 100 UNIT/ML VIAL SQ SCH ×5 (06:21→21:31)
[2019-09-08 06:47] LABS: Potassium 3.6 mmol/L (3.5-5.1)
[2019-09-08] MEDS: BUDESONIDE 1 MG/2 ML NEBU INHALATION SCH ×2 (08:43→19:31)
[2019-09-08] MEDS: IPRATROPIUM-ALBUTEROL 3 ML NEB INHALATION SCH ×4 (08:43→19:31)
[2019-09-08] MEDS: METOPROLOL TARTRATE 50 MG TAB PO SCH ×2 (09:02→21:14)
[2019-09-08] MEDS: LOSARTAN 25 MG TAB PO SCH (09:02)
[2019-09-08] MEDS: MAGNESIUM OXIDE 400 MG TAB PO SCH (09:02)
[2019-09-08] MEDS: ATORVASTATIN 40 MG TAB PO SCH (09:02)
[2019-09-08] MEDS: CLOPIDOGREL 75 MG TAB PO SCH (09:02)
[2019-09-08] MEDS: POTASSIUM CHLORIDE ER 20 MEQ TAB.ER PO SCH ×2 (09:03→21:13)
[2019-09-08] MEDS: SENNOSIDES-DOCUSATE SODIUM 1 EACH TAB PO SCH ×2 (09:03→21:12)
[2019-09-08] MEDS: PSYLLIUM HUSK 100% 6 GM PACKET PO SCH ×2 (09:03→21:12)
--- NOTE | 2019-09-08 11:08 | P.PN ---
Subjective Patient is seen in follow-up for hyponatremia. Lasix held as of yesterday evening. Sodium level CXXV today. Nonoliguric. No vomiting or diarrhea. Oral intake is fair. Still admits to wheezing. Vital signs are stable. General: The patient appeared well nourished and normally developed. HEENT: Head exam is unremarkable. Neck is without jugular venous distension. LUNGS: Breath sounds decreased. Scattered wheezing. HEART: Rate and Rhythm are regular. ABDOMEN: Soft, nontender. EXTREMITITES: No edema. Objective - Vital Signs Vital signs: Vital Signs Temp 97.9 F 09/08/19 04:00 Pulse 68 09/08/19 08:57 Resp 22 09/08/19 08:00 BP 108/74 09/08/19 08:00 Pulse Ox 96 09/08/19 08:00 Intake & Output 09/07/19 09/08/19 09/08/19 18:59 06:59 18:59 Intake Total 540 Output Total 1800 2800 Balance -1800 -2260 Weight 112 kg Intake: Oral 540 Output: Urine 1800 2800 Uretheral (Irwin) 700 Other: Voiding Method Indwelling Catheter Indwelling Catheter # Voids 1 - Labs CBC & Chem 7: 09/02/19 13:12 09/08/19 06:09 Labs: Abnormal Lab Results - Last 24 Hours (Table) 09/07/19 09/07/19 09/07/19 Range/Units 12:24 17:25 18:05 Sodium 124 L (137-145) mmol/L Chloride (98-107) mmol/L Carbon Dioxide (22-30) mmol/L BUN (9-20) mg/dL Glucose (74-99) mg/dL POC Glucose (mg/dL) 329 H 241 H (75-99) mg/dL Osmolality (280-301) mosm/kg Calcium (8.4-10.2) mg/dL 09/07/19 09/07/19 09/08/19 Range/Units 18:05 20:39 06:09 Sodium 125 L (137-145) mmol/L Chloride 87 L (98-107) mmol/L Carbon Dioxide 33 H (22-30) mmol/L BUN 32 H (9-20) mg/dL Glucose 192 H (74-99) mg/dL POC Glucose (mg/dL) 355 H (75-99) mg/dL Osmolality 276 L (280-301) mosm/kg Calcium 8.0 L (8.4-10.2) mg/dL 09/08/19 Range/Units 06:17 Sodium (137-145) mmol/L Chloride (98-107) mmol/L Carbon Dioxide (22-30) mmol/L BUN (9-20) mg/dL Glucose (74-99) mg/dL POC Glucose (mg/dL) 205 H (75-99) mg/dL Osmolality (280-301) mosm/kg Calcium (8.4-10.2) mg/dL Assessment and Plan Plan: Assessment: 1. Acute kidney injury mostly prerenal secondary to cardiorenal syndrome. Baseline creatinine near 1. Creatinine peaked at 1.56 this admission and is 1.21 today. 2. Acute on chronic systolic CHF with ejection fraction of 30-35%. 3. Volume overload. Improved with diuresis. 4. Hyponatremia. Etiology is diuresis and poor solute intake. Urine sodium less than 10 and urine osmolality 230. TSH normal. 5. Hypokalemia secondary to diuresis. 6. Insulin-dependent diabetes mellitus. Plan: 1200 mL fluid restriction. Encourage oral intake, particularly protein. Ensure 3 times daily. Maintain potassium supplementation. Hold Lasix and Diamox. Start normal saline at 50 mL an hour. Repeat sodium level this evening. Continue to monitor renal function and urine output.
[2019-09-08 12:34] LABS: Glucose,Whole Blood 329 mg/dL (75-99)
--- NOTE | 2019-09-08 13:16 | P.PN ---
Subjective Progress Note Date: 09/08/19 This is a pleasant 79-year-old gentleman who follows regularly with Dr. Jessi Gardner in the office. He has a documented history of ischemic cardiomyopathy, hypertension, hyperlipidemia, PAD and PVD, CVA, chronic atrial fibrillation, patient recently underwent a cardiac catheterization with subsequ ent iliac stenting, LAD stenting, and circumflex stenting with and pelvis support on August 26. He was discharged home, he states that he ate the initial day after discharge he felt fine. Subsequent to that he began to feel short of breath, and started to notice significant peripheral edema. His diuretics were held on discharge because of worsening renal function during his hospitalization. His chest x-ray on presentation here showed cardiomegaly with mild congestive heart failure. EKG showed atrial fibrillation with rapid ventricular response, nonspecific ST-T wave changes. Blood pressure 128/50, heart rate 110, respirations 20, 93% on 3 L of oxygen. White blood cell count 10.3, hemoglobin 13.6, platelet count 228. Sodium 134, potassium 4.2, BUN 32, creatinine 0.9. This morning the sodium is 132, potassium 3.4, BUN 26, creatinine 1.0. Troponin 0.14, BNP level 8400. Patient was initiated on IV Lasix in the emergency room and has been diuresing well. At the time of my examination he denied any chest discomfort, still felt quite short of breath. And was complaining of some mild abdominal fullness, that he has not moved his bowels since Monday. 09/04/2019 Patient was seen and examined this morning, he does feel significantly better overall today. He has diuresed well through the night although her weight is not reflective of this. Blood pressure 118/60 with a heart rate in the 60s, 92% on room air. Sodium 128, potassium 3.4, BUN 28 and creatinine 1.3. Echocardio gram with Doppler study was performed which revealed an ejection fraction of 30- 35%. 09/05/2019 Patient seen and examined this morning, he states that he's feeling better every day, but continues to have a significant amount of wheezing, still becomes quite short of breath walking back from the bathroom. Blood pressure 102/62, heart rate in the 80s, 97% on room air. Sodium 125, potassium 3.5, BUN 33, creatinine 1.4. 09/06/2019 Patient seen and examined this morning, complaining of constipation. Diuresed well through the night last night. He does admit that his breathing is improving, but not back to his normal. Blood pressure 100/60 with a heart rate in the 60s, 96% on 3 L of oxygen. Sodium 124, potassium 3.4, BUN 37, creatinine 1.5. 09/06: Patient continues to diurese well. Chest x-ray from yesterday revealed cardiomegaly. Mildly prominent esters tissue appears similar to prior exam may represent a degree of underlying chronic interstitial lung disease, pneumonitis or venous congestion. Repeat blood work reveals sodium 124, potassium 3.3, chloride 81, CO2 35, BUN 34 and creatinine 1.32. INR 1.4. Sodium has been on a down trend since admission. Consult will be added for nephrology. 09/07: Patient is resting in bed and appears to be comfortable. He denies having any shortness of breath at rest while in bed. He does have shortness of breath with minimal activity and he complains about wheezing. He denies having any chest pain. Repeat lab work this morning reveals sodium of 125, potassium 3.6, chloride 87, CO2 33, BUN 32 and creatinine 1.21. He has been afebrile, heart rate 64, blood pressure 108/74 and pulse ox 96% on 3 L nasal cannula. Patient was seen yesterday by Dr. robb Cunningham and Lasix was discontinued. Today, IV fluids were started at 50 mL per hour. Irwin catheter remains in place and patient is having adequate urine output and weight is down to 1/2 kg from yesterday.. PHYSICAL EXAMINATION: GENERAL: 79-year-old gentleman in no acute distress at the time of my examination HEENT: Head is atraumatic, normocephalic. Pupils equal, round. Sclera anicteric. Conjunctiva are clear. Mucous membranes of the mouth are dry. Neck is supple. There is no elevated jugular venous pressure. HEART EXAMINATION: S1 and S2 irregularly irregular a systolic murmur is heard CHEST EXAMINATION: Lungs revealed diffuse scattered wheezes and few scattered rhonchi. ABDOMEN: Soft, obese, nontender. Bowel sounds are heard. No organomegaly noted. Irwin draining clear yue urine. EXTREMITIES: 2+ peripheral pulses with no evidence of peripheral edema and no calf tenderness noted. NEUROLOGIC patient is awake, alert and oriented 3 . Assessment #1 systolic congestive heart failure acute on chronic #2 recent stenting of the LAD and circumflex artery one week ago #3 PAD and PVD with a recent iliac stenting one week ago #4 hypertension #5 hyperlipidemia #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 fib #8 ischemic cardiomyopathy #9 hypokalemia Plan Consult nephrology for hyponatremia Continue to hold Lasix Patient is been started on IV fluids 0.9 normal saline at 50 mL per hour per nephrology Continue to monitor the intake and output, daily weights and daily lytes BUN and creatinine Continue Plavix, Lipitor, losartan and Lopressor Further recommendations to follow based upon clinical course. Nurse practitioner note has been reviewed, I agree with documented findings and plan of care. Patient was seen and examined. Objective - Vital Signs Vital signs: Vital Signs Temp 97.9 F 09/08/19 04:00 Pulse 68 09/08/19 08:57 Resp 22 09/08/19 08:00 BP 108/74 09/08/19 08:00 Pulse Ox 96 09/08/19 08:00 Intake & Output 09/07/19 09/08/19 09/08/19 18:59 06:59 18:59 Intake Total 540 200 Output Total 1800 2800 501 Balance -1800 -2260 -301 Weight 112 kg Intake: Oral 540 200 Output: Urine 1800 2800 500 Uretheral ([place]) 700 Stool 1 Other: Voiding Method Indwelling Catheter Indwelling Catheter # Voids 1 1 - Labs CBC & Chem 7: 09/02/19 13:12 09/08/19 06:09 Labs: Abnormal Lab Results - Last 24 Hours (Table) 09/07/19 09/07/19 09/07/19 Range/Units 12:24 17:25 18:05 Sodium 124 L (137-145) mmol/L Chloride (98-107) mmol/L Carbon Dioxide (22-30) mmol/L BUN (9-20) mg/dL Glucose (74-99) mg/dL POC Glucose (mg/dL) 329 H 241 H (75-99) mg/dL Osmolality (280-301) mosm/kg Calcium (8.4-10.2) mg/dL 09/07/19 09/07/19 09/08/19 Range/Units 18:05 20:39 06:09 Sodium 125 L (137-145) mmol/L Chloride 87 L (98-107) mmol/L Carbon Dioxide 33 H (22-30) mmol/L BUN 32 H (9-20) mg/dL Glucose 192 H (74-99) mg/dL POC Glucose (mg/dL) 355 H (75-99) mg/dL Osmolality 276 L (280-301) mosm/kg Calcium 8.0 L (8.4-10.2) mg/dL 09/08/19 Range/Units 06:17 Sodium (137-145) mmol/L Chloride (98-107) mmol/L Carbon Dioxide (22-30) mmol/L BUN (9-20) mg/dL Glucose (74-99) mg/dL POC Glucose (mg/dL) 205 H (75-99) mg/dL Osmolality (280-301) mosm/kg Calcium (8.4-10.2) mg/dL
[2019-09-08] MEDS: CYANOCOBALAMIN 500 MCG TAB PO SCH (13:31)
[2019-09-08] MEDS: SODIUM CHLORIDE 0.9% 1,000 ML IV SCH (13:31)
[2019-09-08] MEDS: VITAMIN E (DL,TOCOPHERYL ACET) 400 UNIT CAP PO SCH (16:10)
[2019-09-08 17:32] LABS: Glucose,Whole Blood 309 mg/dL (75-99)
--- NOTE | 2019-09-08 17:38 | P.PN ---
Progress Note - Text Progress Note Date: 09/08/19 Chief Complaint: Shortness of breath History of presenting complaint: This is a 79-year-old patient of Dr. Yosvany morrow whose chronic stable medical conditions include diabetes, hyperlipidemia, hypertension, fibromyalgia, right- sided weakness from prior stroke and peripheral neuropathy, atrial fibrillation. previously also's had a lumbar L3-L4 epidural abscess , carotid artery disease with prior stent, depression uses a walker to baseline COPD presbyesophagus causing chronic dysphagia. On August 25 patient underwent cardiac catheterization and was found critical stenosis of LAD 90%, obtuse marginal same and circumflex. Successful intervention was done to the LAD and obtuse marginal. Circumflex will be addressed in the future. Patient left iliac artery dissection and Dr. Mcfadden carried out an urgent stenting. Patient was discharged on August 29. Patient also had acute kidney injury. Creatinine had gone from 0.8-1.7. With hydration did come down to 1.3 before discharge. Patient came back to ER for last 2 days worsening short of breath. No edema. 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 BEN Gardner and was told to increase his Lasix. Patient has some clear sputum. No fever no chills. Admitted for CHF exacerbation.-Started on IV Lasix. Also COPD exacerbation started on bronchodilators and inhaled steroids. Did go into acute kidney injury. Diuretics held. Gentle hydration started. Also became hyponatremic from the same. Today-. Feeling better. Tolerating diet. at the bedside. Review of systems: Was done for constitutional, cardiovascular, GI, pulmonary. relevant finding as above Active Medications Acetaminophen (Tylenol Tab) 650 mg PO Q6HR PRN PRN Reason: Mild Pain or Fever > 100.5 Last Admin: 09/06/19 03:55 Dose: 650 mg Documented by: Albuterol/Ipratropium (Duoneb 0.5 Mg-3 Mg/3 Ml Soln) 3 ml INHALATION RT-TID PRN PRN Reason: Shortness Of Breath Albuterol/Ipratropium (Duoneb 0.5 Mg-3 Mg/3 Ml Soln) 3 ml INHALATION RT-QID [facility] Last Admin: 09/08/19 15:04 Dose: 3 ml Documented by: Atorvastatin Calcium (Lipitor) 40 mg PO DAILY [facility] Last Admin: 09/08/19 09:02 Dose: 40 mg Documented by: Budesonide (Pulmicort) 1 mg INHALATION RT-BID [facility] Last Admin: 09/08/19 08:43 Dose: 1 mg Documented by: Clopidogrel Bisulfate (Plavix) 75 mg PO DAILY [facility] Last Admin: 09/08/19 09:02 Dose: 75 mg Documented by: Cyanocobalamin (Vitamin B-12) 1,000 mcg PO DAILY@1200 [facility] Last Admin: 09/08/19 13:31 Dose: 1,000 mcg Documented by: Cyclobenzaprine HCl (Flexeril) 10 mg PO TID PRN PRN Reason: Muscle Pain Diclofenac Sodium (Voltaren Gel) 2 gm TOPICAL QID [facility] Last Admin: 09/08/19 13:32 Dose: 2 gm Documented by: Fluticasone Propionate (Flonase Nasal [place]) 2 spray EA NOSTRIL DAILY PRN PRN Reason: Allergy Symptoms Hydroxyzine HCl (Atarax) 25 mg PO TID PRN PRN Reason: Itching Last Admin: 09/08/19 16:10 Dose: 25 mg Documented by: Sodium Chloride (Saline 0.9%) 1,000 mls @ 50 mls/hr IV .Q20H [facility] Last Admin: 09/08/19 13:31 Dose: 50 mls/hr Documented by: Insulin Aspart (Novolog) 0 unit SQ [facility]; Protocol Last Admin: 09/08/19 13:31 Dose: 9 unit Documented by: Lactulose (Cephulac) 15 gm PO TID PRN PRN Reason: Constipation Last Admin: 09/07/19 13:04 Dose: 15 gm Documented by: Losartan Potassium (Cozaar) 25 mg PO DAILY [facility] Last Admin: 09/08/19 09:02 Dose: 25 mg Documented by: Magnesium Oxide (Mag-Ox) 400 mg PO DAILY [facility] Last Admin: 09/08/19 09:02 Dose: 400 mg Documented by: Melatonin (Melatonin) 3 mg PO [facility] Last Admin: 09/07/19 20:51 Dose: 3 mg Documented by: Methadone HCl (Dolophine) 5 mg PO Q8H [facility] Last Admin: 09/08/19 13:30 Dose: 5 mg Documented by: Metoprolol Tartrate (Lopressor) 50 mg PO BID [facility] Last Admin: 09/08/19 09:02 Dose: 50 mg Documented by: Montelukast Sodium (Singulair) 10 mg PO [facility] Last Admin: 09/07/19 20:52 Dose: 10 mg Documented by: Naloxone HCl (Narcan) 0.2 mg IV Q2M PRN PRN Reason: Opioid Reversal Nitroglycerin (Nitrostat) 0.4 mg SUBLINGUAL Q5M PRN PRN Reason: Chest Pain Pantoprazole Sodium (Protonix) 40 mg PO TID PRN PRN Reason: Heartburn Last Admin: 09/03/19 10:59 Dose: 40 mg Documented by: Potassium Chloride (K-Dur 20) 20 meq PO BID [facility] Last Admin: 09/08/19 09:03 Dose: 20 meq Documented by: Psyllium Hydrophilic Mucilloid (Metamucil) 6 gm PO BID [facility] Last Admin: 09/08/19 09:03 Dose: 6 gm Documented by: Senna/Docusate Sodium (Senokot-S) 2 each PO BID [facility] Last Admin: 09/08/19 09:03 Dose: 2 each Documented by: Sertraline HCl (Zoloft) 100 mg PO [facility] Last Admin: 09/07/19 20:51 Dose: 100 mg Documented by: Triamcinolone Acetonide (Kenalog) 1 applic TOPICAL BID PRN PRN Reason: Itching Vitamin E (Vitamin E) 400 unit PO DAILY@1200 [facility] Last Admin: 09/08/19 16:10 Dose: 400 unit Documented by: Warfarin Sodium (Coumadin) 5 mg PO DAILY@1800 [facility]; Protocol Last Admin: 09/07/19 17:55 Dose: 5 mg Documented by: Physical examination: VITAL SIGNS: 97.7, 66, 12, 91/56, 97% on 3 L GENERAL: Laying in bed, awake EYES: Pupils equal. Conjunctiva pale. HEENT: External appearance of nose and ears normal, oral cavity grossly normal, decreased hearing. NECK: JVD unable to assess, mass not palpable. HEART: Irregular heart sounds; no edema. LUNGS: Respiratory rate increased, decreased breath sounds. Some wheezing. ABDOMEN: Soft, nontender, liver spleen not palpable, no masses palpable. PSYCH: Alert and oriented x3; mood and affect slightly anxious NEUROLOGICAL: Cranial nerves grossly intact; no facial asymmetry, decreased power of the right side. INVESTIGATIONS, reviewed in the clinical context: Sodium 125in 3.6 creatinine 1.21 bicarb 32 Previous testing White count 10.3 hemoglobin 13.6 platelets 228 INR 1.4 potassium 4.2 creatinine 0.99 EKG tracing personally reviewed by me-atrial fibrillation Chest x-ray film personally reviewed by me-cardiomegaly no obvious venous prominence -August 29 were bun of 14 and creatinine 1.39, troponin I 0.145, proBNP 8400 Assessment: -Acute on chronic congestive heart failure / systolic dysfunction EF 40% from underlying coronary artery disease, patient probably is a increased end- diastolic pressure given that x-rays not showing florid edema.-Improved -Acute kidney injury, prerenal from diuresis/cardiorenal syndrome-slowly improving -Coronary artery disease with successful stenting to the obtuse marginal and LAD. 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 On normal saline 50 mL an hour. Care was discussed the at the bedside and the patient. Questions answered. Hoping discharged tomorrow.
[2019-09-08] MEDS: WARFARIN 5 MG TAB PO SCH (17:42)
[2019-09-08 20:12] LABS: Glucose,Whole Blood 325 mg/dL (75-99)
[2019-09-08] MEDS: MELATONIN 3 MG TABLET PO SCH (21:12)
[2019-09-08] MEDS: MONTELUKAST 10 MG TAB PO SCH (21:12)
[2019-09-08] MEDS: SERTRALINE 100 MG TAB PO SCH (21:13)
[2019-09-08 21:26] LABS: Basophils % (A) 0 %; Eosinophils # (A) 0.5 k/uL (0-0.7); Eosinophils % (A) 5 %; HCT 43.1 % (39.0-53.0); HGB 13.3 gm/dL (13.0-17.5); Hypochromasia Slight; Lymphocytes # (A) 1.4 k/uL (1.0-4.8); Lymphocytes % (A) 14 %; MCH 28.5 pg (25.0-35.0); MCHC 30.8 g/dL (31.0-37.0); MCV 92.7 fL (80.0-100.0); Mean Platelet Volume 8.1; Monocytes # (A) 0.9 k/uL (0-1.0); Monocytes % (A) 8 %; Neutrophils # (A) 7.3 k/uL (1.3-7.7); Neutrophils % (A) 70 %; Platelet Count 262 k/uL (150-450); RBC 4.65 m/uL (4.30-5.90); WBC 10.4 k/uL (3.8-10.6)
[2019-09-08 21:35] LABS: INR 1.5 (<1.2); Prothrombin Time 15.3 sec (9.0-12.0)
[2019-09-09] MEDS: METHADONE 5 MG TAB PO SCH ×3 (05:17→21:23)
[2019-09-09 06:16] LABS: Glucose,Whole Blood 229 mg/dL (75-99)
[2019-09-09] MEDS: SODIUM CHLORIDE 0.9% 1,000 ML IV SCH ×2 (06:39→09:00)
[2019-09-09 07:44] LABS: Calcium 8.2 mg/dL (8.4-10.2)
[2019-09-09 07:50] LABS: Magnesium 2.4 mg/dL (1.6-2.3); Potassium 4.8 mmol/L (3.5-5.1)
[2019-09-09 07:55] LABS: INR 1.6 (<1.2); Prothrombin Time 15.6 sec (9.0-12.0)
[2019-09-09] MEDS ORDERED: WARFARIN 2 MG TAB PO ONE (08:00)
[2019-09-09] MEDS: IPRATROPIUM-ALBUTEROL 3 ML NEB INHALATION SCH ×4 (08:10→20:25)
[2019-09-09] MEDS: BUDESONIDE 1 MG/2 ML NEBU INHALATION SCH ×2 (08:10→20:25)
--- NOTE | 2019-09-09 08:19 | XR ---
EXAMINATION TYPE: XR chest 1V DATE OF EXAM: 09/09/2019 COMPARISON: Prior chest x-ray 09/06/2019 HISTORY: Congestive heart failure TECHNIQUE: Single frontal view of the chest is obtained. FINDINGS: Patient is rotated. There are overlying cardiac leads. Aorta is dense. No evident pneumotho rax or pleural effusion. Possible subsegmental basilar atelectatic changes present left lower lobe, l ingula. Heart is stable, borderline enlarged. IMPRESSION: Probable subsegmental basilar atelectatic change. Stable cardiomegaly.
[2019-09-09 08:26] LABS: Glucose,Whole Blood 356 mg/dL (75-99)
[2019-09-09] MEDS: ATORVASTATIN 40 MG TAB PO SCH (08:52)
[2019-09-09] MEDS: INSULIN ASPART (NovoLOG) 100 UNIT/ML VIAL SQ SCH ×4 (08:52→21:28)
[2019-09-09] MEDS: CLOPIDOGREL 75 MG TAB PO SCH (08:53)
[2019-09-09] MEDS: METOPROLOL TARTRATE 50 MG TAB PO SCH ×2 (08:54→21:22)
[2019-09-09] MEDS: MAGNESIUM OXIDE 400 MG TAB PO SCH (08:54)
[2019-09-09] MEDS: PSYLLIUM HUSK 100% 6 GM PACKET PO SCH ×2 (08:54→21:23)
[2019-09-09] MEDS: SENNOSIDES-DOCUSATE SODIUM 1 EACH TAB PO SCH ×2 (08:54→21:23)
[2019-09-09] MEDS: POTASSIUM CHLORIDE ER 20 MEQ TAB.ER PO SCH (08:54)
[2019-09-09] MEDS: LOSARTAN 25 MG TAB PO SCH (08:54)
[2019-09-09] MEDS: DICLOFENAC SODIUM GEL 100 GM TUBE TOPICAL SCH ×4 (09:03→21:25)
[2019-09-09] MEDS ORDERED: BISACODYL 10 MG SUPP RECTAL STA (09:10)
[2019-09-09] MEDS: LACTULOSE 20 GM/30 ML CUP PO PRN (09:12)
[2019-09-09] MEDS ORDERED: TOLVAPTAN 15 MG 1/2 TABLET PO ONE (09:34)
--- NOTE | 2019-09-09 09:36 | P.PN ---
Subjective Patient is seen in follow-up for hyponatremia. Lasix held as of September 06. He was started on normal saline yesterday with no improvement in sodium level. Sodium level 123 this morning. Nonoliguric. No vomiting or diarrhea. Oral intake is fair. No chest pain or shortness of breath. Admits to constipation. Vital signs are stable. General: The patient appeared well nourished and normally developed. HEENT: Head exam is unremarkable. Neck is without jugular venous distension. LUNGS: Breath sounds decreased. Scattered wheezing. HEART: Rate and Rhythm are regular. ABDOMEN: Soft, nontender. EXTREMITITES: No edema. Objective - Vital Signs Vital signs: Vital Signs Temp 97.6 F 09/09/19 03:48 Pulse 72 09/09/19 08:25 Resp 18 09/09/19 03:49 BP 117/61 09/09/19 03:48 Pulse Ox 98 09/09/19 03:48 Intake & Output 09/08/19 09/09/19 09/09/19 18:59 06:59 18:59 Intake Total 610 1140 360 Output Total 1901 775 Balance -1291 365 360 Weight 115.9 kg Intake: Intake, IV Titration 600 Amount Sodium Chloride 0.9% 1, 600 000 ml @ 50 mls/hr IV . Q20H [facility] Rx#:[id number] Oral 610 540 360 Output: Urine 1900 775 Stool 1 Other: Voiding Method Indwelling Catheter Indwelling Catheter # Voids 1 - Labs CBC & Chem 7: 09/08/19 21:12 09/09/19 06:36 Labs: Abnormal Lab Results - Last 24 Hours (Table) 09/08/19 09/08/19 09/08/19 Range/Units 12:21 16:59 17:03 MCHC (31.0-37.0) g/dL PT (9.0-12.0) sec INR (<1.2) Sodium 122 L (137-145) mmol/L Chloride (98-107) mmol/L BUN (9-20) mg/dL Glucose (74-99) mg/dL POC Glucose (mg/dL) 329 H 309 H (75-99) mg/dL Calcium (8.4-10.2) mg/dL Magnesium (1.6-2.3) mg/dL 09/08/19 09/08/19 09/08/19 Range/Units 20:08 21:12 21:12 MCHC 30.8 L (31.0-37.0) g/dL PT 15.3 H (9.0-12.0) sec INR 1.5 H (<1.2) Sodium (137-145) mmol/L Chloride (98-107) mmol/L BUN (9-20) mg/dL Glucose (74-99) mg/dL POC Glucose (mg/dL) 325 H (75-99) mg/dL Calcium (8.4-10.2) mg/dL Magnesium (1.6-2.3) mg/dL 09/09/19 09/09/19 09/09/19 Range/Units 06:13 06:36 06:36 MCHC (31.0-37.0) g/dL PT 15.6 H (9.0-12.0) sec INR 1.6 H (<1.2) Sodium 123 L (137-145) mmol/L Chloride 88 L (98-107) mmol/L BUN 34 H (9-20) mg/dL Glucose 198 H (74-99) mg/dL POC Glucose (mg/dL) 229 H (75-99) mg/dL Calcium 8.2 L (8.4-10.2) mg/dL Magnesium 2.4 H (1.6-2.3) mg/dL 09/09/19 Range/Units 08:25 MCHC (31.0-37.0) g/dL PT (9.0-12.0) sec INR (<1.2) Sodium (137-145) mmol/L Chloride (98-107) mmol/L BUN (9-20) mg/dL Glucose (74-99) mg/dL POC Glucose (mg/dL) 356 H (75-99) mg/dL Calcium (8.4-10.2) mg/dL Magnesium (1.6-2.3) mg/dL Assessment and Plan Plan: Assessment: 1. Acute kidney injury mostly prerenal secondary to cardiorenal syndrome. Baseline creatinine near 1. Creatinine peaked at 1.56 this admission and is 1.07 today. 2. Acute on chronic systolic CHF with ejection fraction of 30-35%. 3. Volume overload. Improved with diuresis. No evidence of fluid overload at this time. 4. Hyponatremia. Etiology is diuresis and poor solute intake. Urine sodium less than 10 and urine osmolality 230. TSH normal. 5. Hypokalemia secondary to diuresis. Resolved. 6. Insulin-dependent diabetes mellitus. Plan: 1200 mL fluid restriction. Encourage oral intake, particularly protein. Ensure 3 times daily. Discontinue potassium supplementation. Hold Lasix and Diamox. Samsca 15 mg once today. Maintain normal saline at 50 mL an hour. Repeat sodium level this evening. Continue to monitor renal function and urine output.
--- NOTE | 2019-09-09 11:03 | P.PN ---
Subjective From records: This is a 79-year-old patient of Dr. Yosvany morrow whose chronic stable medical conditions include diabetes, hyperlipidemia, hypertension, fibromyalgia, right- sided weakness from prior stroke and peripheral neuropathy, atrial fibrillation. previously also's had a lumbar L3-L4 epidural abscess , carotid artery disease with prior stent, depression uses a walker to baseline COPD presbyesophagus causing chronic dysphagia. On August 25 patient underwent cardiac catheterization and was found critical stenosis of LAD 90%, obtuse marginal same and circumflex. Successful intervention was done to the LAD and obtuse marginal. Circumflex will be addressed in the future. Patient left iliac artery dissection and Dr. Mcfadden carried out an urgent stenting. Patient was discharged on August 29. Patient also had acute kidney injury. Creatinine had gone from 0.8-1.7. With hydration did come down to 1.3 before discharge. Patient came back to ER for last 2 days worsening short of breath. No edema. He had called his weight guesser Dr. BEN Gardner and was told to increase his Lasix. Patient has some clear sputum. No fever no chills. Admitted for CHF exacerbation.-Started on IV Lasix. Also COPD exacerbation started on bronchodilators and inhaled steroids. Did go into acute kidney injury. Diuretics held. Gentle hydration started. Also became hyponatremic from the same. Today-. Feeling better. Tolerating diet. at the bedside. Subjective 09/09/2019 Patient is a pleasant 79 years old male who presents with acute systolic on chronic heart failure with ejection fraction 30-35% with antibiotic LV wall. Is status post cardiac cath on 08/25 with stent placed to the LAD and obtuse branch, he has also circumflex coronary artery disease which will be addressed later. His AKA I is improved and his creatinine back to normal at 1.0. However patient has been developing hyponatremia down to 122 yesterday, and 123 today Lasix and attempts were held and patient has been evaluated by bight maker who started him on samsca. His INR is subtherapeutic at 1.6, increase his Coumadin to 6 mg daily, and give her 2 extra milligrams daily. Sugar is elevated 356, continue with sliding scale. Chest x-ray from this morning showing basal atelectasis. Objective - Vital Signs Vital signs: Vital Signs Temp 98 F 09/09/19 08:00 Pulse 72 09/09/19 08:25 Resp 20 07/13/20 08:00 BP 112/57 09/09/19 08:00 Pulse Ox 92 L 09/09/19 08:00 Intake & Output 09/08/19 09/09/19 09/09/19 18:59 06:59 18:59 Intake Total 610 1140 360 Output Total 1901 775 Balance -1291 365 360 Weight 115.9 kg Intake: Intake, IV Titration 600 Amount Sodium Chloride 0.9% 1, 600 000 ml @ 50 mls/hr IV . Q20H [facility] Rx#:[id number] Oral 610 540 360 Output: Urine 1900 775 Stool 1 Other: Voiding Method Indwelling Catheter Indwelling Catheter Indwelling Catheter # Voids 1 - Exam GENERAL: The patient is alert and oriented x3, not in any acute distress. Well developed, well nourished. HEENT: Pupils are round and equally reacting to light. EOMI. No scleral icterus. No conjunctival pallor. Normocephalic, atraumatic. No pharyngeal erythema. No thyromegaly. CARDIOVASCULAR: S1 and S2 present. No murmurs, rubs, or gallops. PULMONARY: Chest is clear to auscultation, no wheezing or crackles. ABDOMEN: Soft, nontender, nondistended, normoactive bowel sounds. No palpable organomegaly. MUSCULOSKELETAL: No joint swelling or deformity. EXTREMITIES: No cyanosis, clubbing, or pedal edema. NEUROLOGICAL: Gross neurological examination did not reveal any focal deficits. SKIN: No rashes. no petechiae. - Labs CBC & Chem 7: 09/08/19 21:12 09/09/19 06:36 Labs: Abnormal Lab Results - Last 24 Hours (Table) 09/08/19 09/08/19 09/08/19 Range/Units 12:21 16:59 17:03 MCHC (31.0-37.0) g/dL PT (9.0-12.0) sec INR (<1.2) Sodium 122 L (137-145) mmol/L Chloride (98-107) mmol/L BUN (9-20) mg/dL Glucose (74-99) mg/dL POC Glucose (mg/dL) 329 H 309 H (75-99) mg/dL Calcium (8.4-10.2) mg/dL Magnesium (1.6-2.3) mg/dL 09/08/19 09/08/19 09/08/19 Range/Units 20:08 21:12 21:12 MCHC 30.8 L (31.0-37.0) g/dL PT 15.3 H (9.0-12.0) sec INR 1.5 H (<1.2) Sodium (137-145) mmol/L Chloride (98-107) mmol/L BUN (9-20) mg/dL Glucose (74-99) mg/dL POC Glucose (mg/dL) 325 H (75-99) mg/dL Calcium (8.4-10.2) mg/dL Magnesium (1.6-2.3) mg/dL 09/09/19 09/09/19 09/09/19 Range/Units 06:13 06:36 06:36 MCHC (31.0-37.0) g/dL PT 15.6 H (9.0-12.0) sec INR 1.6 H (<1.2) Sodium 123 L (137-145) mmol/L Chloride 88 L (98-107) mmol/L BUN 34 H (9-20) mg/dL Glucose 198 H (74-99) mg/dL POC Glucose (mg/dL) 229 H (75-99) mg/dL Calcium 8.2 L (8.4-10.2) mg/dL Magnesium 2.4 H (1.6-2.3) mg/dL 09/09/19 Range/Units 08:25 MCHC (31.0-37.0) g/dL PT (9.0-12.0) sec INR (<1.2) Sodium (137-145) mmol/L Chloride (98-107) mmol/L BUN (9-20) mg/dL Glucose (74-99) mg/dL POC Glucose (mg/dL) 356 H (75-99) mg/dL Calcium (8.4-10.2) mg/dL Magnesium (1.6-2.3) mg/dL Assessment and Plan Assessment: -Acute on chronic congestive heart failure / systolic dysfunction EF 30-35% from underlying coronary artery disease, with akinetic LV wall -Hyponatremia -Acute kidney injury, improved -Coronary artery disease with successful stenting to the obtuse marginal and LAD. 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 His CHF is improved however it looks like he has hyponatremia currently, diuretics on hold, patient got samsca bynephrologist. Follow-up recommendation by weight guesser. Continue with Plavix and Pulmicort and metoprolol 50 mg. Also is on normal saline Labs and medication were reviewed.. Continue same treatment. Continue with symptomatic treatment. Resume home medication. Monitor lytes and vitals. DVT and GI prophylaxis. Further recommendations of the clinical course of the patient DVT prophylaxis: On warfarin GI Prophylaxis: Pepcid PT/OT: Pending Prognosis is guarded
[2019-09-09 11:55] LABS: Glucose,Whole Blood 294 mg/dL (75-99)
[2019-09-09] MEDS: CYANOCOBALAMIN 500 MCG TAB PO SCH (12:52)
[2019-09-09 13:06] VITALS: BMI 33.7
[2019-09-09] MEDS: VITAMIN E (DL,TOCOPHERYL ACET) 400 UNIT CAP PO SCH (13:12)
--- NOTE | 2019-09-09 14:31 | PN ---
PROGRESS NOTE Mr. Flores has significant CAD, triple-vessel. He also has history of LV dysfunction, chronic atrial fibrillation. About 2 weeks ago, I performed a Impella supported PCI of LAD and circumflex. This was complicated by a left iliac dissection that has also been stented. He is doing well. His heart failure has improved. However, his sodium is 123. I am recommending that we decrease oral fluids to 1200 mL, stop vitamin E. Continue his other medications and Dr. Maria is following him for his hyponatremia and tolvaptan is being given. Vitals are stable, no JVD, S1-S2 heard normally, irregular rhythm noted, short systolic murmur noted. Lungs reveal improved air entry. Abdomen and lower extremity exam unchanged. Plan is to continue current medications, increase oral fluids and follow potassium and sodium level. MMODL / IJN: [id number] /
[2019-09-09] MEDS: WARFARIN 5 MG TAB PO SCH ×2 (17:04→17:05)
[2019-09-09 17:13] LABS: Glucose,Whole Blood 303 mg/dL (75-99)
[2019-09-09] MEDS ORDERED: WARFARIN 3 MG TAB PO SCH (18:00)
[2019-09-09 20:59] LABS: Glucose,Whole Blood 309 mg/dL (75-99)
[2019-09-09] MEDS: FAMOTIDINE 20 MG/2 ML VIAL IV SCH (21:22)
[2019-09-09] MEDS: MONTELUKAST 10 MG TAB PO SCH (21:22)
[2019-09-09] MEDS: MELATONIN 3 MG TABLET PO SCH (21:22)
[2019-09-09] MEDS: SERTRALINE 100 MG TAB PO SCH (21:23)
[2019-09-09] MEDS ORDERED: INSULIN DETEMIR (LEVEMIR) 100 UNIT/ML SYR SQ SCH (22:00)
[2019-09-10 00:27] VITALS: RESP 18
[2019-09-10] MEDS: METHADONE 5 MG TAB PO SCH ×2 (05:22→14:53)
[2019-09-10] MEDS: SODIUM CHLORIDE 0.9% 1,000 ML IV SCH (05:23)
[2019-09-10 06:12] LABS: Glucose,Whole Blood 196 mg/dL (75-99)
[2019-09-10 07:33] LABS: Calcium 8.5 mg/dL (8.4-10.2); Magnesium 2.4 mg/dL (1.6-2.3); Potassium 4.6 mmol/L (3.5-5.1)
[2019-09-10] MEDS: FAMOTIDINE 20 MG/2 ML VIAL IV SCH (07:53)
[2019-09-10] MEDS: ATORVASTATIN 40 MG TAB PO SCH (07:53)
[2019-09-10] MEDS: METOPROLOL TARTRATE 50 MG TAB PO SCH (07:53)
[2019-09-10] MEDS: MAGNESIUM OXIDE 400 MG TAB PO SCH (07:53)
[2019-09-10] MEDS: LOSARTAN 25 MG TAB PO SCH (07:53)
[2019-09-10] MEDS: CLOPIDOGREL 75 MG TAB PO SCH (07:53)
[2019-09-10] MEDS: SENNOSIDES-DOCUSATE SODIUM 1 EACH TAB PO SCH (07:53)
[2019-09-10] MEDS: PSYLLIUM HUSK 100% 6 GM PACKET PO SCH (07:54)
[2019-09-10] MEDS: INSULIN ASPART (NovoLOG) 100 UNIT/ML VIAL SQ SCH ×2 (07:54→12:47)
[2019-09-10] MEDS: DICLOFENAC SODIUM GEL 100 GM TUBE TOPICAL SCH ×2 (07:55→13:11)
[2019-09-10 07:57] LABS: Prothrombin Time 19.2 sec (9.0-12.0)
[2019-09-10] MEDS: IPRATROPIUM-ALBUTEROL 3 ML NEB INHALATION SCH ×3 (08:41→16:38)
[2019-09-10] MEDS ORDERED: FUROSEMIDE 40 MG TAB PO SCH (09:15)
--- NOTE | 2019-09-10 11:27 | P.PN ---
Subjective Patient is seen in follow-up for hyponatremia. Sodium level 130. today. Lasix held as of September 06 and was resumed this morning. Nonoliguric. No vomiting or diarrhea. Oral intake is fair. No chest pain but does admit to shortness of breath today. Vital signs are stable. General: The patient appeared well nourished and normally developed. HEENT: Head exam is unremarkable. Neck is without jugular venous distension. LUNGS: Breath sounds decreased. Scattered wheezing. HEART: Rate and Rhythm are regular. ABDOMEN: Soft, nontender. EXTREMITITES: No edema. Objective - Vital Signs Vital signs: Vital Signs Temp 98.6 F 09/10/19 08:00 Pulse 63 09/10/19 08:00 Resp 18 09/10/19 08:00 BP 122/65 09/10/19 08:00 Pulse Ox 98 09/10/19 08:00 Intake & Output 09/09/19 09/10/19 09/10/19 18:59 06:59 18:59 Intake Total 1316 540 478 Output Total 1330 2351 Balance - 478 Weight 115.9 kg 116.1 kg Intake: Oral 1316 540 478 Output: Urine 1330 2350 Stool 1 Other: Voiding Method Indwelling Catheter Indwelling Catheter Urinal # Bowel Movements 2 - Labs CBC & Chem 7: 09/08/19 21:12 09/10/19 06:39 Labs: Abnormal Lab Results - Last 24 Hours (Table) 09/09/19 09/09/19 09/09/19 Range/Units 11:46 16:50 17:36 PT (9.0-12.0) sec INR (<1.2) Sodium 127 L (137-145) mmol/L Chloride (98-107) mmol/L Carbon Dioxide (22-30) mmol/L BUN (9-20) mg/dL Glucose (74-99) mg/dL POC Glucose (mg/dL) 294 H 303 H (75-99) mg/dL Magnesium (1.6-2.3) mg/dL 09/09/19 09/10/19 09/10/19 Range/Units 20:57 06:06 06:39 PT 19.2 H (9.0-12.0) sec INR 2.0 H (<1.2) Sodium (137-145) mmol/L Chloride (98-107) mmol/L Carbon Dioxide (22-30) mmol/L BUN (9-20) mg/dL Glucose (74-99) mg/dL POC Glucose (mg/dL) 309 H 196 H (75-99) mg/dL Magnesium (1.6-2.3) mg/dL 09/10/19 Range/Units 06:39 PT (9.0-12.0) sec INR (<1.2) Sodium 130 L (137-145) mmol/L Chloride 95 L (98-107) mmol/L Carbon Dioxide 31 H (22-30) mmol/L BUN 29 H (9-20) mg/dL Glucose 204 H (74-99) mg/dL POC Glucose (mg/dL) (75-99) mg/dL Magnesium 2.4 H (1.6-2.3) mg/dL Assessment and Plan Plan: Assessment: 1. Acute kidney injury mostly prerenal secondary to cardiorenal syndrome. Baseline creatinine near 1. Creatinine peaked at 1.56 this admission and is 1.1 today. 2. Acute on chronic systolic CHF with ejection fraction of 30-35%. 3. Volume overload. Improved with diuresis. No evidence of fluid overload noted on chest x-ray from yesterday. 4. Hyponatremia. Etiology is diuresis and poor solute intake. Urine sodium less than 10 and urine osmolality 230. TSH normal. Status post Samsca. Better. 5. Hypokalemia secondary to diuresis. Resolved. 6. Insulin-dependent diabetes mellitus. Plan: Hep-Lock IV fluids. Lasix resumed this morning. 1200 mL fluid restriction. Encourage oral intake, particularly protein. Ensure 3 times daily. Repeat electrolytes in the morning.
[2019-09-10 12:16] LABS: Glucose,Whole Blood 276 mg/dL (75-99)
--- NOTE | 2019-09-10 12:26 | PN ---
PROGRESS NOTE Mr. Flores is doing well. He is breathing better. His sodium has come up to 130. Vitals are stable. Decent urine output. JVD 1 cm. No carotid bruit, S1-S2 heard normally, short systolic murmur noted. Lungs are clear. Abdomen and lower extremity exam unchanged. Plan is to discharge him today on 4 mg of Coumadin and 40 mg of Lasix orally. I will see him in the office on Monday and he will have a PT, INR, CBC, BMP Monday morning. All medications were reviewed. Talked to his . He can be discharged today. Both groins are clean and dry with good pulse. MMODL / IJN: [id number] /
[2019-09-10 12:39] VITALS: BP 113/64; TEMP 98.7
[2019-09-10] MEDS: CYANOCOBALAMIN 500 MCG TAB PO SCH (12:47)
[2019-09-10 16:49] VITALS: PULSE 70
[2019-09-10 17:04] LABS: Glucose,Whole Blood 261 mg/dL (75-99)
[2019-09-10] MEDS ORDERED: WARFARIN 2 MG TAB PO SCH (18:00)
[2019-09-10] MEDS ORDERED: WARFARIN 3 MG TAB PO SCH (18:00)
--- NOTE | 2019-09-10 23:13 | P.DS ---
Providers Date of admission: 09/02/19 15:12 Attending physician: Ephraim Underwood Consults: 09/02/19 15:13 Consult Physician Routine Consulting Provider: Aruna Gardner Consult Reason/Comments: heart failure, dyspnea Do you want consulting provider notified?: Yes 09/06/19 11:53 Consult Physician Routine Consulting Provider: Angelina Umaña Consult Reason/Comments: osmni Do you want consulting provider notified?: Yes 09/07/19 12:22 Consult Physician Routine Consulting Provider: Ebenezer Cunningham Consult Reason/Comments: hyponatremia Do you want consulting provider notified?: Yes Primary care physician: Yosvany Escalona [facility] Course: Diagnoses: -Acute on chronic congestive heart failure / systolic dysfunction EF 30-35% from underlying coronary artery disease, with akinetic LV wall -Hyponatremia -Acute kidney injury, improved -Coronary artery disease with successful stenting to the obtuse marginal and LAD. 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 Yosvany escalona whose chronic stable medical conditions include diabetes, hyperlipidemia, hypertension, fibromyalgia, right- sided weakness from prior stroke and peripheral neuropathy, atrial fibrillation. previously also's had a lumbar L3-L4 epidural abscess , carotid artery disease with prior stent, depression uses a walker to baseline COPD presbyesophagus causing chronic dysphagia. On August 25 patient underwent cardiac catheterization and was found critical stenosis of LAD 90%, obtuse marginal same and circumflex. Successful intervention was done to the LAD and obtuse marginal. Circumflex will be addressed in the future. Patient this time admitted because of dyspnea and found to have acute on chronic systolic CHF with ejection fraction of 30-35% and was treated with diuresis, he is status post cardiac cath on 08/25 with stent placed to the LAD and obtuse branch, he has also circumflex coronary artery disease which will be addressed later. His hospital course was complicated by acute kidney injury, his creatinine went up to 1.56 and sodium went down to 122- 123 so Lasix and Diamox were held and patient was given gentle hydration and his creatinine came back to normal at 1.1 upon discharge. Loop Tacker evaluated the patient and he gave him samsca on 09/08 and his sodium went up to 130 upon discharge. Lasix 40 mg by mouth daily was her symptoms prior to discharge by cardiology team His INR was subtherapeutic at 1.4-1.6 while on Coumadin 5 mg daily, yesterday years received 7 mg of Coumadin and his creatinine today is 2.0. I discussed the case with Dr. Gardner and he wants him to be discharged on Coumadin 4 mg daily and he will follow up with him as an outpatient. Target INR is 2-3 A day of discharge he has no chest pain, his dyspnea and exertional dyspnea significantly improved, yesterday he could walk in the hallway with the physical therapist and he did well with no significant dyspnea. No other complaints regarding his bowel or urine. No nausea vomiting and no fever. Yesterday he needed 28 units of short-acting insulin +10 units of long-acting insulin (total 38 units, compared to 56 units prior to coming to the hospital) Patient was cleared for discharge by cardiology and nephrology services Problems and management plan were discussed with the patient and he verbalized understanding and acceptance Patient was found stable and can be discharged home however he needs follow-up as an outpatient. Patient was instructed to follow up with PCP Dr. Fisher within one week and patient agrees. Patient also instructed to follow up with his car diologist Dr. Gardner and converting technician Dr. Lamb in 1-2 weeks and he agrees OT/PT recommended subacute rehab for him, I talked to the patient extensively, risk of bleeding is high for the patient given his generalized weakness had been on Coumadin and Plavix he verbalized understanding and he agreed to me to go to rehab at [facility], later on he change his mind and told Dr. Gardner and the bedside nurse that he wants to go home and not rehab. Based upon my evaluation patient has capacity to make decisions also at bed side and wants to take him home. pt and agree with appointments made for him with on 09/15 and on 09/10. changes in medications discussed with at bed side upon discharge and she agrees Gen: patient is a AAOx3, no distress CVS: S1-S2, RRR, no murmur Lungs: B/L CTA, no wheezing Abdomen: soft, no distention, no tenderness, positive bowel sounds Extremity: no leg edema or induration Time spent more than 35 minutes Patient Condition at Discharge: Fair Plan - Discharge Summary Discharge Rx Participant: Yes New Discharge Prescriptions: New Warfarin [Coumadin] 4 mg PO DAILY@1800 #20 tab Furosemide [Lasix] 40 mg PO DAILY #30 tab Acetaminophen Tab [Tylenol] 650 mg PO Q6HR PRN tab PRN Reason: Mild Pain Or Fever > 100.5 Potassium Chloride ER [K-Dur 10] 10 meq PO DAILY #30 tab Continue Triamcinolone 0.1% Cream [Kenalog 0.1% Cream] 1 applic TOPICAL BID PRN PRN Reason: Itching Methadone [Dolophine] 5 mg PO Q8H #9 tab Magnesium Oxide [Mag-Ox] 250 mg PO DAILY Vitamin E 100 unit PO DAILY@1200 Sertraline [Zoloft] 100 mg PO HS Nitroglycerin Sl Tabs [Nitrostat] 0.4 mg SUBLINGUAL Q5M PRN PRN Reason: Chest Pain Montelukast [Singulair] 10 mg PO HS Ipratropium-Albuterol Nebulize [Duoneb 0.5 mg-3 mg/3 ml Soln] 3 ml INHALATION RT-TID PRN PRN Reason: Shortness Of Breath hydrOXYzine HCL [Atarax] 25 mg PO TID PRN PRN Reason: Itching Fluticasone Nasal [place] [Flonase Nasal Ferron] 2 spr EA NOSTRIL DAILY PRN PRN Reason: Allergy Symptoms Diclofenac Sodium [Voltaren Gel] 2 gram TOPICAL QID Cyclobenzaprine [Flexeril] 10 mg PO TID PRN PRN Reason: Pain Cyanocobalamin (Vitamin B-12) [Vitamin B-12] 1,000 mcg PO DAILY@1200 Metoprolol Tartrate [Lopressor] 50 mg PO BID #60 tab Melatonin 3 mg PO HS tablet Losartan [Cozaar] 25 mg PO DAILY #30 tab Atorvastatin [Lipitor] 40 mg PO DAILY #30 tab Sennosides-Docusate Sodium [Senokot-S] 2 tab PO BID Clopidogrel [Plavix] 75 mg PO DAILY #30 tab Changed Omeprazole [PriLOSEC] 40 mg PO AC-BRKFST 30 Days #60 Insulin Glargine,Hum.rec.anlog [Toujeo Solostar] 40 units SQ DAILY #0 Insulin Aspart [NovoLOG Flexpen] See Protocol SQ AC-TID #1 vial Discontinued Aspirin EC [Ecotrin Low Dose] 81 mg PO HS #0 Potassium Chloride ER [K-Dur 20] 20 meq PO BID Furosemide [Lasix] 40 mg PO BID@0900,1600 #60 tablet Vit C/E/Zn/Coppr/Lutein/Zeaxan [Preservision Areds 2 Softgel] 1 cap PO DAILY Warfarin Sodium 2.5 mg PO HS Discharge Medication List Triamcinolone 0.1% Cream [Kenalog 0.1% Cream] 1 applic TOPICAL BID PRN 07/08/17 [History] Methadone [Dolophine] 5 mg PO Q8H #9 tab 09/13/17 [Rx] Cyanocobalamin (Vitamin B-12) [Vitamin B-12] 1,000 mcg PO DAILY@1200 10/31/18 [History] Cyclobenzaprine [Flexeril] 10 mg PO TID PRN 10/31/18 [History] Diclofenac Sodium [Voltaren Gel] 2 gram TOPICAL QID 10/31/18 [History] Fluticasone Nasal Ferron [Flonase Nasal Ferron] 2 spr EA NOSTRIL DAILY PRN 10/31/18 [History] Ipratropium-Albuterol Nebulize [Duoneb 0.5 mg-3 mg/3 ml Soln] 3 ml INHALATION RT-TID PRN 10/31/18 [History] Magnesium Oxide [Mag-Ox] 250 mg PO DAILY 10/31/18 [History] Montelukast [Singulair] 10 mg PO HS 10/31/18 [History] Nitroglycerin Sl Tabs [Nitrostat] 0.4 mg SUBLINGUAL Q5M PRN 10/31/18 [History] Sertraline [Zoloft] 100 mg PO HS 10/31/18 [History] Vitamin E 100 unit PO DAILY@1200 10/31/18 [History] hydrOXYzine HCL [Atarax] 25 mg PO TID PRN 10/31/18 [History] Melatonin 3 mg PO HS tablet 11/08/18 [Rx] Metoprolol Tartrate [Lopressor] 50 mg PO BID #60 tab 11/08/18 [Rx] Atorvastatin [Lipitor] 40 mg PO DAILY #30 tab 08/30/19 [Rx] Losartan [Cozaar] 25 mg PO DAILY #30 tab 08/30/19 [Rx] Sennosides-Docusate Sodium [Senokot-S] 2 tab PO BID 09/02/19 [History] Acetaminophen Tab [Tylenol] 650 mg PO Q6HR PRN tab 09/10/19 [Rx] Clopidogrel [Plavix] 75 mg PO DAILY #30 tab 09/10/19 [Rx] Furosemide [Lasix] 40 mg PO DAILY #30 tab 09/10/19 [Rx] Insulin Aspart [NovoLOG Flexpen] See Protocol SQ AC-TID #1 vial 09/10/19 [Rx] Insulin Glargine,Hum.rec.anlog [Toujeo Solostar] 40 units SQ DAILY #0 09/10/19 [Rx] Omeprazole [PriLOSEC] 40 mg PO AC-BRKFST 30 Days #60 09/10/19 [Rx] Potassium Chloride ER [K-Dur 10] 10 meq PO DAILY #30 tab 09/10/19 [Rx] Warfarin [Coumadin] 4 mg PO DAILY@1800 #20 tab 09/10/19 [Rx] Follow up Appointment(s)/Referral(s): Aruna Gardner MD [STAFF PHYSICIAN] - 09/16/19 3:00 am (MondaySeptember 15 at 3:00pm) [facility], [NON-STAFF] - 1-2 Days (office will call) Yosvany Escalona MD [Primary Care Provider] - 09/11/19 1:15 am (MondaySeptember 10 at 1:15) Ebenezer Cunningham DO [STAFF PHYSICIAN] - 2 Weeks (call office for appt) Patient Instructions/Handouts: Warfarin (By mouth), Heart Failure (DC), A-fib (Atrial Fibrillation) (DC), Heart Healthy Diet (DC) Activity/Diet/Wound Care/Special Instructions: cardiac diet activity is limited till you see your doctor Discharge/Stand Alone Forms: Work/School Release, Outpatient DC Instruction Form Discharge Disposition: HOME WITH HOME HEALTH SERVICES
== END 2019-09-10 18:13 | disposition home health service (06) | DRG 292 ==
LOC: EC 12:41 → 3SCARD 15:12
PROVIDERS: ADMIT Hospitalist; ATTEND Hospitalist
DX: I11.0 Hypertensive heart disease with heart failure (principal); E87.1 Hypo-osmolality and hyponatremia; E87.3 Alkalosis; I48.19 Other persistent atrial fibrillation; I48.92 Unspecified atrial flutter; I69.351 Hemiplegia and hemiparesis following cerebral infarction affecting right dominant side; J44.1 Chronic obstructive pulmonary disease with (acute) exacerbation; J98.11 Atelectasis; N17.9 Acute kidney failure, unspecified; I95.9 Hypotension, unspecified; E86.1 Hypovolemia; E11.42 Type 2 diabetes mellitus with diabetic polyneuropathy; E11.51 Type 2 diabetes mellitus with diabetic peripheral angiopathy without gangrene; Z20.828 Contact with and (suspected) exposure to other viral communicable diseases; E78.5 Hyperlipidemia, unspecified; E87.6 Hypokalemia; F32.9 Major depressive disorder, single episode, unspecified; F41.9 Anxiety disorder, unspecified; I25.10 Atherosclerotic heart disease of native coronary artery without angina pectoris; I25.5 Ischemic cardiomyopathy; K22.8 Other specified diseases of esophagus; K44.9 Diaphragmatic hernia without obstruction or gangrene; K59.00 Constipation, unspecified; R01.1 Cardiac murmur, unspecified; M79.7 Fibromyalgia; T50.2X5A Adverse effect of carbonic-anhydrase inhibitors, benzothiadiazides and other diuretics, initial encounter; G47.00 Insomnia, unspecified; G89.29 Other chronic pain; H40.9 Unspecified glaucoma; K21.9 Gastro-esophageal reflux disease without esophagitis; M19.90 Unspecified osteoarthritis, unspecified site; M51.26 Other intervertebral disc displacement, lumbar region; R13.10 Dysphagia, unspecified; R26.9 Unspecified abnormalities of gait and mobility; Z79.01 Long term (current) use of anticoagulants; Z79.02 Long term (current) use of antithrombotics/antiplatelets; Z79.4 Long term (current) use of insulin; Z79.899 Other long term (current) drug therapy; Z79.82 Long term (current) use of aspirin; Z88.2 Allergy status to sulfonamides; Z87.891 Personal history of nicotine dependence; Z95.5 Presence of coronary angioplasty implant and graft; Z86.61 Personal history of infections of the central nervous system; Z90.79 Acquired absence of other genital organ(s); Z86.010 Personal history of colon polyps; Z98.42 Cataract extraction status, left eye; Z98.41 Cataract extraction status, right eye; Z95.820 Peripheral vascular angioplasty status with implants and grafts; Z80.42 Family history of malignant neoplasm of prostate
CPT/HCPCS: 36415; 71045; 71046; 80048; 80053; 83036; 83735; 83880; 83930; 83935; 84295; 84300; 84443; 84484; 85025; 85610; 85730; 93005; 93306; 94640; 94760; 96374; 99285

== ENCOUNTER → 2019-11-06 | Outpatient (CLI) | payer MEDICARE, BC | END | disposition home or self-care (01) | LOC: CPPFTMAIN 11:52 | PROVIDERS: ATTEND Internal Medicine Critical Care Medicine | DX: J44.9 Chronic obstructive pulmonary disease, unspecified (principal) | CPT/HCPCS: 94060; 94726; 94729 ==

== ENCOUNTER 2020-09-04 14:18 | Inpatient (IN) | payer MEDICARE, BC ==
[2020-09-04] MEDS ORDERED: MORPHINE SULFATE 2 MG/ML SYRINGE IVP STA (14:40)
[2020-09-04] MEDS ORDERED: ONDANSETRON 4 MG/2 ML VIAL IVP STA (14:40)
--- NOTE | 2020-09-04 14:43 | ED ---
Fall HPI - General Chief Complaint: Fall Stated Complaint: Fall,Leg injury Time Seen by Provider: 09/04/20 14:30 Source: patient, family Mode of arrival: wheelchair - History of Present Illness Initial Comments: 80 year-old male patient presents to the emergency department for evaluation of left ankle pain and difficulty ambulating. States two days ago he stood up from his chair too fast, lost his balance, and fell into some TV trays. Patient states he hurt his ankle and has been having pain since. States that he has developed bruising and swelling over the ankle. Patient denies hitting his head during the fall. Denies any headache currently. Rosalba increased neck or back pain. Does report generalized weakness. Patient denies any recent rash, fever, chills, cough, shortness of breath, chest pain, abdominal pain, nausea, vomiting, diarrhea, constipation, hematuria, dysuria, urinary urgency, urinary frequency, or any other complaints. - Related Data Home Medications Medication Instructions Recorded Confirmed Fluticasone Nasal [place] [Flonase 2 spr EA NOSTRIL DAILY 10/31/18 09/04/20 Nasal [place]] Magnesium Oxide [Mag-Ox] 250 mg PO DAILY 10/31/18 09/04/20 Montelukast [Singulair] 10 mg PO HS 10/31/18 09/04/20 Nitroglycerin Sl Tabs [Nitrostat] 0.4 mg SUBLINGUAL Q5M PRN 10/31/18 09/04/20 Sertraline [Zoloft] 100 mg PO DAILY 10/31/18 09/04/20 Sennosides-Docusate Sodium 2 tab PO BID 09/02/19 09/04/20 [Senokot-S] Budesonide/Formoterol Fumarate 2 puff INHALATION RT-BID 09/04/20 09/04/20 [Symbicort 160-4.5 Mcg Inhaler] Furosemide [Lasix] 40 mg PO BID 09/04/20 09/04/20 Gabapentin [Neurontin] 100 mg PO TID 09/04/20 09/04/20 Insulin Glargine,Hum.rec.anlog 54 units SQ DAILY 09/04/20 09/04/20 [Maral Perla] Omeprazole [PriLOSEC] 20 mg PO BID 09/04/20 09/04/20 Potassium Chloride ER [K-Dur 20] 20 meq PO DAILY 09/04/20 09/04/20 Warfarin Sodium 2 mg PO TU 09/04/20 09/04/20 Warfarin Sodium 4 mg PO SUMOWEFRSA 09/04/20 09/04/20 metOLazone [Zaroxolyn] 2.5 mg PO DAILY PRN 09/04/20 09/04/20 traZODone HCL [Desyrel] 50 mg PO HS PRN 09/04/20 09/04/20 Previous Rx's Medication Instructions Recorded Methadone [Dolophine] 5 mg PO Q8H #9 tab 09/13/17 Melatonin 3 mg PO HS tablet 11/08/18 Metoprolol Tartrate [Lopressor] 50 mg PO BID #60 tab 11/08/18 Atorvastatin [Lipitor] 40 mg PO DAILY #30 tab 08/30/19 Losartan [Cozaar] 25 mg PO DAILY #30 tab 08/30/19 Clopidogrel [Plavix] 75 mg PO DAILY #30 tab 09/10/19 Insulin Aspart [NovoLOG Flexpen] See Protocol SQ AC-TID #1 vial 09/10/19 Allergies Allergy/AdvReac Type Severity Reaction Status Date / Time Sulfa (Sulfonamide Allergy Rash/Hives Verified 09/04/20 16:03 Antibiotics) morphine AdvReac Severe Unknown Verified 09/05/20 06:25 Review of Systems ROS Statement: Those systems with pertinent positive or pertinent negative responses have been documented in the HPI. ROS Other: All systems not noted in ROS Statement are negative. 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 History of Any Multi-Drug Resistant Organisms: None Reported Past Surgical History: Back Surgery, Heart Catheterization With Stent, Orthopedic Surgery, Prostate Surgery Additional Past Surgical History / Comment(s): unsuccessful cardioversion in 2017, endoscopic sinus surgery/polypectomy, colonoscopy, TURP, bilateral hydrocelectomy, rt elbow surgery, toñito cataracts, laminectomy, recent stent placement 08/26/2019 2 cardiac stent, 1 stent ilitac artery Past Anesthesia/Blood Transfusion Reactions: No Reported Reaction Date of Last Stent Placement:: 2019 Past Psychological History: Anxiety, Depression Smoking Status: Never smoker Past Alcohol Use History: None Reported Past Drug Use History: None Reported - Past Family History Mother Family Medical History: No Reported History Father Family Medical History: Cancer Additional Family Medical History / Comment(s): Father had prostrate cancer. General Exam Limitations: physical limitation General appearance: alert, in no apparent distress, other (Physical well- developed, well-nourished elderly male patient in no acute distress. Vital signs upon presentation are temperature 99.3F, pulse 58, respirations 16, blood pressure 131/86, pulse ox 90% on room air.) Eye exam: Present: normal appearance, PERRL, EOMI. Absent: scleral icterus, conjunctival injection, nystagmus, periorbital swelling ENT exam: Present: normal exam, normal oropharynx, mucous membranes moist Neck exam: Present: normal inspection, full ROM. Absent: tenderness, meningismus, lymphadenopathy Respiratory exam: Present: normal lung sounds bilaterally. Absent: respiratory distress, wheezes, rales, rhonchi, stridor Cardiovascular Exam: Present: regular rate, normal rhythm, normal heart sounds. Absent: systolic murmur, diastolic murmur, rubs, gallop, clicks GI/Abdominal exam: Present: soft, normal bowel sounds. Absent: distended, tenderness, guarding, rebound, rigid Extremities exam: Present: full ROM, tenderness (Left medial lateral malleolus), normal capillary refill, other (Ecchymosis, soft tissue swelling over the left lateral ankle. There is ecchymosis noted over the right anterior thigh. Skin is otherwise pink, warm, dry. Cap refill less than 3 seconds. Pedal and posttibial pulses are 2+ and equal bilaterally.). Absent: normal inspection, pedal edema, joint swelling, calf tenderness Back exam: Present: normal inspection. Absent: vertebral tenderness Neurological exam: Present: alert, oriented X3, CN II-XII intact Psychiatric exam: Present: normal affect, normal mood Skin exam: Present: warm, dry, intact, normal color. Absent: rash Course Vital Signs 09/04/20 09/04/20 09/04/20 14:32 14:35 14:36 Temperature 99.3 F Pulse Rate 58 L Respiratory 16 Rate Blood Pressure 131/86 O2 Sat by Pulse 90 L 78 L 95 Oximetry 09/04/20 09/04/20 09/04/20 15:36 16:36 17:01 Temperature 99.8 F H Pulse Rate 97 82 Respiratory 18 Rate Blood Pressure 108/66 O2 Sat by Pulse 94 L 95 Oximetry Medical Decision Making - Medical Decision Making 80-year-old male patient presents to the emergency department today for evalua tion of generalized weakness and left ankle pain after a fall a couple of days ago. Physical examination did reveal soft tissue swelling and ecchymosis of the left ankle. Labs reviewed and did reveal decreased sodium, increased BUN and creatinine. X-ray of the ankle and knee were negative for any acute fractures. Patient is unable to bear weight is quite weak. Chest x-ray shows possible pneumonia he did have mildly elevated temperature here. He was also hypoxic at 70% on room air while in the department. Oxygen was applied. He was started on antibiotics. He admitted to the hospital for further evaluation and monitoring. He is agreeable with this plan. Case discussed with my attending - Lab Data Result diagrams: 09/05/20 08:15 09/05/20 12:45 Lab Results 09/04/20 09/04/20 09/04/20 Range/Units 14:46 14:46 14:46 WBC 10.6 (3.8-10.6) k/uL RBC 4.90 (4.30-5.90) m/uL Hgb 14.7 (13.0-17.5) gm/dL Hct 43.4 (39.0-53.0) % MCV 88.6 (80.0-100.0) fL MCH 29.9 (25.0-35.0) pg MCHC 33.8 (31.0-37.0) g/dL RDW 12.9 (11.5-15.5) % Plt Count 209 (150-450) k/uL MPV 8.6 Neutrophils % 86 % Lymphocytes % 5 % Monocytes % 6 % Eosinophils % 1 % Basophils % 0 % Neutrophils # 9.1 H (1.3-7.7) k/uL Lymphocytes # 0.6 L (1.0-4.8) k/uL Monocytes # 0.7 (0-1.0) k/uL Eosinophils # 0.1 (0-0.7) k/uL Basophils # 0.0 (0-0.2) k/uL PT 27.2 H (9.0-12.0) sec INR 2.8 H (<1.2) APTT 35.8 H (22.0-30.0) sec Sodium 121 L (137-145) mmol/L Potassium 3.3 L (3.5-5.1) mmol/L Chloride 75 L (98-107) mmol/L Carbon Dioxide 35 H (22-30) mmol/L Anion Gap 11 mmol/L BUN 56 H (9-20) mg/dL Creatinine 1.51 H (0.66-1.25) mg/dL Est GFR (CKD-EPI)AfAm 51 (>60 ml/min/1.73 sqM) Est GFR (CKD-EPI)NonAf 44 (>60 ml/min/1.73 sqM) Glucose 415 H (74-99) mg/dL POC Glucose (mg/dL) (75-99) mg/dL POC Glu Tire Layer ID Lactic Ac Sepsis Rflx Plasma Lactic Acid Alan (0.7-2.0) mmol/L Calcium 8.1 L (8.4-10.2) mg/dL Magnesium 1.8 (1.6-2.3) mg/dL Total Bilirubin 0.5 (0.2-1.3) mg/dL AST 22 (17-59) U/L ALT 16 (4-49) U/L Alkaline Phosphatase 102 (38-126) U/L Troponin I (0.000-0.034) ng/mL Total Protein 6.4 (6.3-8.2) g/dL Albumin 3.4 L (3.5-5.0) g/dL Coronavirus (PCR) (Not Detectd) 09/04/20 09/04/20 09/04/20 Range/Units 14:46 14:46 15:23 WBC (3.8-10.6) k/uL RBC (4.30-5.90) m/uL Hgb (13.0-17.5) gm/dL Hct (39.0-53.0) % MCV (80.0-100.0) fL MCH (25.0-35.0) pg MCHC (31.0-37.0) g/dL RDW (11.5-15.5) % Plt Count (150-450) k/uL MPV Neutrophils % % Lymphocytes % % Monocytes % % Eosinophils % % Basophils % % Neutrophils # (1.3-7.7) k/uL Lymphocytes # (1.0-4.8) k/uL Monocytes # (0-1.0) k/uL Eosinophils # (0-0.7) k/uL Basophils # (0-0.2) k/uL PT (9.0-12.0) sec INR (<1.2) APTT (22.0-30.0) sec Sodium (137-145) mmol/L Potassium (3.5-5.1) mmol/L Chloride (98-107) mmol/L Carbon Dioxide (22-30) mmol/L Anion Gap mmol/L BUN (9-20) mg/dL Creatinine (0.66-1.25) mg/dL Est GFR (CKD-EPI)AfAm (>60 ml/min/1.73 sqM) Est GFR (CKD-EPI)NonAf (>60 ml/min/1.73 sqM) Glucose (74-99) mg/dL POC Glucose (mg/dL) (75-99) mg/dL POC Glu Tire Layer ID Lactic Ac Sepsis Rflx Y Plasma Lactic Acid Alan 3.5 H* (0.7-2.0) mmol/L Calcium (8.4-10.2) mg/dL Magnesium (1.6-2.3) mg/dL Total Bilirubin (0.2-1.3) mg/dL AST (17-59) U/L ALT (4-49) U/L Alkaline Phosphatase (38-126) U/L Troponin I 0.026 (0.000-0.034) ng/mL Total Protein (6.3-8.2) g/dL Albumin (3.5-5.0) g/dL Coronavirus (PCR) (Not Detectd) 09/04/20 09/04/20 Range/Units 16:15 16:23 WBC (3.8-10.6) k/uL RBC (4.30-5.90) m/uL Hgb (13.0-17.5) gm/dL Hct (39.0-53.0) % MCV (80.0-100.0) fL MCH (25.0-35.0) pg MCHC (31.0-37.0) g/dL RDW (11.5-15.5) % Plt Count (150-450) k/uL MPV Neutrophils % % Lymphocytes % % Monocytes % % Eosinophils % % Basophils % % Neutrophils # (1.3-7.7) k/uL Lymphocytes # (1.0-4.8) k/uL Monocytes # (0-1.0) k/uL Eosinophils # (0-0.7) k/uL Basophils # (0-0.2) k/uL PT (9.0-12.0) sec INR (<1.2) APTT (22.0-30.0) sec Sodium (137-145) mmol/L Potassium (3.5-5.1) mmol/L Chloride (98-107) mmol/L Carbon Dioxide (22-30) mmol/L Anion Gap mmol/L BUN (9-20) mg/dL Creatinine (0.66-1.25) mg/dL Est GFR (CKD-EPI)AfAm (>60 ml/min/1.73 sqM) Est GFR (CKD-EPI)NonAf (>60 ml/min/1.73 sqM) Glucose (74-99) mg/dL POC Glucose (mg/dL) 375 H (75-99) mg/dL POC Glu Tire Layer ID Wale, SHANE, Gaurang Lactic Ac Sepsis Rflx Plasma Lactic Acid Alan (0.7-2.0) mmol/L Calcium (8.4-10.2) mg/dL Magnesium (1.6-2.3) mg/dL Total Bilirubin (0.2-1.3) mg/dL AST (17-59) U/L ALT (4-49) U/L Alkaline Phosphatase (38-126) U/L Troponin I (0.000-0.034) ng/mL Total Protein (6.3-8.2) g/dL Albumin (3.5-5.0) g/dL Coronavirus (PCR) Not Detected (Not Detectd) - EKG Data -: EKG Interpreted by Me EKG Comments: EKG obtained at 1435 shows A. fib with a ventricular 95, QRS duration 154, QT 432, QTc 542. Changes are consistent with previous EKG. - Radiology Data Radiology results: report reviewed, image reviewed Disposition Clinical Impression: Pneumonia, Lactic acidosis, Hyperglycemia, Hypoxia Disposition: ADMITTED IP TO THIS [facility] Condition: Serious Decision to Admit Reason: Admit from EC Decision Date: 09/04/20 Decision Time: 16:36
[2020-09-04 15:11] LABS: Albumin 3.4 g/dL (3.5-5.0); Calcium 8.1 mg/dL (8.4-10.2); Magnesium 1.8 mg/dL (1.6-2.3); Potassium 3.3 mmol/L (3.5-5.1); Total Bilirubin 0.5 mg/dL (0.2-1.3); Total Protein 6.4 g/dL (6.3-8.2)
[2020-09-04 15:19] LABS: Basophils % (A) 0 %; Eosinophils # (A) 0.1 k/uL (0-0.7); Eosinophils % (A) 1 %; HCT 43.4 % (39.0-53.0); HGB 14.7 gm/dL (13.0-17.5); Lymphocytes # (A) 0.6 k/uL (1.0-4.8); Lymphocytes % (A) 5 %; MCH 29.9 pg (25.0-35.0); MCHC 33.8 g/dL (31.0-37.0); MCV 88.6 fL (80.0-100.0); Mean Platelet Volume 8.6; Monocytes # (A) 0.7 k/uL (0-1.0); Monocytes % (A) 6 %; Neutrophils # (A) 9.1 k/uL (1.3-7.7); Neutrophils % (A) 86 %; Platelet Count 209 k/uL (150-450); RDW 12.9 % (11.5-15.5); WBC 10.6 k/uL (3.8-10.6)
--- NOTE | 2020-09-04 15:28 | CT ---
EXAMINATION TYPE: CT brain lucina rashid DATE OF EXAM: 09/04/2020 COMPARISON: None HISTORY: Fall today with injury. Patient appears to have involuntary tremor CT DLP: 1700.[address] of the brain was performed. The ventricles, basal cisterns and sulci overlying the cerebral convexities demonstrate mild enlargem ent. There is no evidence for intracranial hemorrhage or sulcal effacement. There is decreased attenuatio n about the periventricular white matter and deep white matter of both cerebral hemispheres, compatib le with chronic small vessel ischemia. Broad insult right occipital lobe. No mass effects are seen. If symptoms persist consider MRI. Osseous calvarium is intact. IMPRESSION: 1. Age related atrophic and chronic small vessel ischemic change without acute intracranial process seen at this time. CT Cervical Spine: Unenhanced CT of the cervical spine was performed with bone and soft tissue window settings submitted . Coronal and sagittal reconstruction is obtained. There is normal alignment and prevertebral soft tissues. No evidence for acute cervical fracture . Scattered degenerative disc disease and spondylosis. Biapical scarring. IMPRESSION: 1. No evidence for acute fracture or subluxation of the cervical spine.
--- NOTE | 2020-09-04 15:29 | XR ---
EXAMINATION TYPE: XR ankle complete LT DATE OF EXAM: 09/04/2020 COMPARISON: NONE HISTORY: Pain TECHNIQUE: 3 views of the left ankle are submitted for evaluation. FINDINGS: There is no evidence for fracture or dislocation. Ankle mortise is intact. Soft tissues are within normal limits. IMPRESSION: 1. No evidence for acute fracture.
[2020-09-04 15:32] LABS: INR 2.8 (<1.2); Partial Thromboplastin Time 35.8 sec (22.0-30.0); Prothrombin Time 27.2 sec (9.0-12.0)
[2020-09-04] MEDS ORDERED: INSULIN ASPART (NovoLOG) 100 UNIT/ML VIAL SQ STA (15:34)
[2020-09-04] MEDS ORDERED: POTASSIUM CHLORIDE ER 20 MEQ TAB.ER PO STA (15:44)
--- NOTE | 2020-09-04 15:59 | XR ---
EXAMINATION TYPE: XR chest 2V DATE OF EXAM: 09/04/2020 COMPARISON: 09/09/2019 HISTORY: Chest pain TECHNIQUE: Frontal and lateral views of the chest are obtained. FINDINGS: Mild increased density right lower lobe may reflect developing infiltrate. Correlate clinically and p rogress studies are advised. No evidence for pneumothorax. No pleural effusion. The cardiac silhouette size is within normal limits. The osseous structures are grossly intact. IMPRESSION: 1. Mild increased density right lower lobe may reflect developing infiltrate. Correlate clinically a nd progress studies are advised.
--- NOTE | 2020-09-04 16:00 | XR ---
EXAMINATION TYPE: XR knee complete LT DATE OF EXAM: 09/04/2020 CLINICAL HISTORY: pain TECHNIQUE: Three views of the left knee are obtained. COMPARISON: None. FINDINGS: There is no acute fracture/dislocation. The tri-compartment joint spaces appear moderatel y narrowed particularly involving the lateral tibiofemoral joint space. Vascular calcifications noted . Suprapatellar joint effusion noted moderate in size. The overlying soft tissue appears unremarkable . IMPRESSION: There is no acute fracture or dislocation ICD 10 NO FRACTURE, INITIAL EVALUATION
[2020-09-04 16:17] LABS: Glucose,Whole Blood 375 mg/dL (75-99)
[2020-09-04] MEDS ORDERED: SODIUM CHLORIDE 0.9% 1,000 ML IV ONE (16:18)
[2020-09-04] MEDS ORDERED: AZITHROMYCIN 500 MG in SODIUM CHLORIDE 0.9% 250 ML IVPB STA (16:33)
[2020-09-04] MEDS ORDERED: ACETAMINOPHEN TAB 325 MG TAB PO PRN (18:11)
[2020-09-04] MEDS ORDERED: DOCUSATE 100 MG CAP PO PRN (18:11)
[2020-09-04] MEDS ORDERED: NITROGLYCERIN SL TABS 0.4 MG TAB SUBLINGUAL PRN (18:13)
[2020-09-04] MEDS ORDERED: traZODone HCL 50 MG TAB PO PRN (18:13)
--- NOTE | 2020-09-04 18:28 | P.HPIM ---
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 Patient is sedated from the morphine he received in the ER, therefore history is taken from chart review, ER provider signout, family at bedside. From my understanding, patient had been in his usual state of health up until approximately 2 weeks ago when he developed upper respiratory symptoms, and was started on prednisone and doxycycline. He had just completed a course a few days ago. At the same time, he had an episode of tripping over an object resulting in pain in the left ankle with superimposed swelling. The pain in the ankle got significantly worse over the last few days prompting his visit to the emergency room today. Upon arrival, he was noted to be hypoxic on room air to 76% requiring 4 L nasal cannula to saturate greater than 90%. Workup in the emergency room did not demonstrate any fractures in his left lower extremity, however, did demonstrate evidence of pneumonia on chest x-ray in the right lower lobe. Patient has a low-grade fever to 99.8, 94% on 2 L nasal cannula, 108/66, heart rate 82. CBC was at baseline, chemistries demonstrated hyponatremia to 121, hypokalemia to 3.3, CO2 35, BUNs of 56, creatinine of 1.5. He also lactic acidosis to 3.5. Chest x-ray findings were described above. Review of Systems Gen: Asleep, not arousable to voice HEENT: normocephalic, atraumatic, good hearing acuity, moist mucous membranes Resp: good air exchange, breathing comfortably with no accessory muscle use CVS: good distal perfusion x 4, GI: soft, NTTP, ND : no SPT, no CVAT, servin catheter not present MSK: Positive pitting edema, no clubbing Neuro: non-focal, moving all extremities Past Medical History Past Medical History: Atrial Fibrillation, Asthma, Coronary Artery Disease (CAD), Heart Failure, COPD, CVA/TIA, Diabetes Mellitus, Eye Disorder, Fibromyalgia, GERD/Reflux, Hyperlipidemia, Hypertension, Osteoarthritis (OA), Pneumonia Additional Past Medical History / Comment(s): neuropathy bilateral feet, ischemic cardiomyopathy, 2008 CVA with R sided weaknes upper and lower ex tremities, uses walker with assistance, bilateral eyes glaucoma, hiatal hernia and gets food "stuck" at times, chronic low back pain, herniated discs, insomnia, 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 History of Any Multi-Drug Resistant Organisms: None Reported Past Surgical History: Back Surgery, Heart Catheterization With Stent, Orthopedic Surgery, Prostate Surgery Additional Past Surgical History / Comment(s): unsuccessful cardioversion in 2017, endoscopic sinus surgery/polypectomy, colonoscopy, TURP, bilateral hydrocelectomy, rt elbow surgery, toñito cataracts, laminectomy, recent stent placement 08/26/2019 2 cardiac stent, 1 stent ilitac artery Past Anesthesia/Blood Transfusion Reactions: No Reported Reaction Date of Last Stent Placement:: 2019 Past Psychological History: Anxiety, Depression Smoking Status: Never smoker Past Alcohol Use History: None Reported Past Drug Use History: None Reported - Past Family History Mother Family Medical History: No Reported History Father Family Medical History: Cancer Additional Family Medical History / Comment(s): Father had prostrate cancer. Medications and Allergies Home Medications Medication Instructions Recorded Confirmed Type Methadone [Dolophine] 5 mg PO Q8H #9 tab 09/13/17 09/04/20 Rx Fluticasone Nasal [place] [Flonase 2 spr EA NOSTRIL DAILY 10/31/18 09/04/20 Hist ory Nasal [place]] Magnesium Oxide [Mag-Ox] 250 mg PO DAILY 10/31/18 09/04/20 History Montelukast [Singulair] 10 mg PO HS 10/31/18 09/04/20 History Nitroglycerin Sl Tabs [Nitrostat] 0.4 mg SUBLINGUAL Q5M PRN 10/31/18 09/04/20 History Sertraline [Zoloft] 100 mg PO DAILY 10/31/18 09/04/20 History Melatonin 3 mg PO HS tablet 11/08/18 09/04/20 Rx Metoprolol Tartrate [Lopressor] 50 mg PO BID #60 tab 11/08/18 09/04/20 Rx Atorvastatin [Lipitor] 40 mg PO DAILY #30 tab 08/30/19 09/04/20 Rx Losartan [Cozaar] 25 mg PO DAILY #30 tab 08/30/19 09/04/20 Rx Sennosides-Docusate Sodium 2 tab PO BID 09/02/19 09/04/20 History [Senokot-S] Clopidogrel [Plavix] 75 mg PO DAILY #30 tab 09/10/19 09/04/20 Rx Insulin Aspart [NovoLOG Flexpen] See Protocol SQ AC-TID #1 vial 09/10/1909/04 Rx Budesonide/Formoterol Fumarate 2 puff INHALATION RT-BID 09/04/20 09/04/20 History [Symbicort 160-4.5 Mcg Inhaler] Furosemide [Lasix] 40 mg PO BID 09/04/20 09/04/20 History Gabapentin [Neurontin] 100 mg PO TID 09/04/20 09/04/20 History Insulin Glargine,Hum.rec.anlog 54 units SQ DAILY 09/04/20 09/04/20 History [[place] Solostar] Omeprazole [PriLOSEC] 20 mg PO BID 09/04/20 09/04/20 History Potassium Chloride ER [K-Dur 20] 20 meq PO DAILY 09/04/20 09/04/20 History Warfarin Sodium 2 mg PO TU 09/04/20 09/04/20 History Warfarin Sodium 4 mg PO SUMOWETHFRSA 09/04/20 09/04/20 History metOLazone [Zaroxolyn] 2.5 mg PO DAILY PRN 09/04/20 09/04/20 History traZODone HCL [Desyrel] 50 mg PO HS PRN 09/04/20 09/04/20 History Allergies Allergy/AdvReac Type Severity Reaction Status Date / Time Sulfa (Sulfonamide Allergy Rash/Hives Verified 09/04/20 16:03 Antibiotics) Physical Exam Osteopathic Statement: *. No significant issues noted on an osteopathic structural exam other than those noted in the History and Physical/Consult. Vitals: Vital Signs Temp Pulse Resp BP Pulse Ox 09/04/20 17:01 82 18 108/66 95 09/04/20 16:36 99.8 F H 09/04/20 15:36 97 94 L 09/04/20 14:36 95 09/04/20 14:35 78 L 09/04/20 14:32 99.3 F 58 L 16 131/86 90 L Intake and Output 07/09/21 07/09/21 07/09/21 06:59 14:59 22:59 Other: Weight 108.862 kg Results CBC & Chem 7: 09/04/20 14:46 09/04/20 14:46 Labs: Abnormal Lab Results - Last 24 Hours (Table) 09/04/20 09/04/20 09/04/20 Range/Units 14:46 14:46 14:46 Neutrophils # 9.1 H (1.3-7.7) k/uL Lymphocytes # 0.6 L (1.0-4.8) k/uL PT 27.2 H (9.0-12.0) sec INR 2.8 H (<1.2) APTT 35.8 H (22.0-30.0) sec Sodium 121 L (137-145) mmol/L Potassium 3.3 L (3.5-5.1) mmol/L Chloride 75 L (98-107) mmol/L Carbon Dioxide 35 H (22-30) mmol/L BUN 56 H (9-20) mg/dL Creatinine 1.51 H (0.66-1.25) mg/dL Glucose 415 H (74-99) mg/dL POC Glucose (mg/dL) (75-99) mg/dL Plasma Lactic Acid Alan (0.7-2.0) mmol/L Calcium 8.1 L (8.4-10.2) mg/dL Albumin 3.4 L (3.5-5.0) g/dL 09/04/20 09/04/20 Range/Units 14:46 16:15 Neutrophils # (1.3-7.7) k/uL Lymphocytes # (1.0-4.8) k/uL PT (9.0-12.0) sec INR (<1.2) APTT (22.0-30.0) sec Sodium (137-145) mmol/L Potassium (3.5-5.1) mmol/L Chloride (98-107) mmol/L Carbon Dioxide (22-30) mmol/L BUN (9-20) mg/dL Creatinine (0.66-1.25) mg/dL Glucose (74-99) mg/dL POC Glucose (mg/dL) 375 H (75-99) mg/dL Plasma Lactic Acid Alan 3.5 H* (0.7-2.0) mmol/L Calcium (8.4-10.2) mg/dL Albumin (3.5-5.0) g/dL Assessment and Plan Assessment: Community acquired pneumonia Acute hypoxemic respiratory failure Lactic acidosis -Admit to inpatient, telemetry -Oxygen when necessary -Ceftriaxone/azithromycin -Follow up blood culture, sputum culture -Follow up pro-calcitonin, BNP Hyponatremia and hypokalemia Acute kidney injury superimposed on CK D stage III -Daily BMP, magnesium -Likely warrants IV fluids while he has an active infection Moderate persistent asthma Ischemic cardiomyopathy with reduced ejection fraction, EF 30-35% Permanent atrial fibrillation, rate controlled CAD HTN HLD DM 2 -Home medications reviewed and reconciled -DuoNeb's when necessary, continue home Symbicort, fluticasone, montelukast -Continue home Lasix, hold home metolazone -Continue Plavix, Coumadin, metoprolol, losartan -Continue home gabapentin, Accu-Cheks every before meals/at bedtime, low-dose sliding scale insulin, 54 units daily of long-acting -Continue atorvastatin -Repeat echocardiogram Patient is a full code DVT prophylaxis covered with Coumadin
[2020-09-04] MEDS: SYMBICORT 160-4.5 MCG INHALER INHALATION SCH (20:36)
[2020-09-04 21:55] LABS: Glucose,Whole Blood 208 mg/dL (75-99)
[2020-09-04] MEDS: NALOXONE 0.4 MG/ML 1 ML VIAL IV PRN ×2 (22:20→23:55)
[2020-09-04] MEDS ORDERED: IPRATROPIUM-ALBUTEROL 3 ML NEB INHALATION STA (22:56)
--- NOTE | 2020-09-04 23:36 | P.EN ---
A team note Activated at 10:32 pm. Arrived on the scene shortly after. Discussed the case with RN. The patient was admitted to the hospital earlier tonight for community-acquired pneumonia and respiratory failure was found to be unresponsive. He received morphine 2 mg IV push in the emergency room. Narcan IVP was administered prior to my arrival at the scene, with which the patient immediately regained consciousness. At time of interview, the patient was awake but not answering any questions or following any commands. The patient was noted to be hypoxic and was placed on a nonrebreather mask with 15 L oxygen per minute with SpO2 95%. General: Non-toxic, in no acute distress, appears stated age, obese HEENT: NC/AT, anicteric sclerae, moist conjunctiva, no lid-lag, PERRLA Cardiovascular: S1/S2 wnl, no murmurs, rubs, or gallops Lungs: Poor inspiratory effort with decreased breath sounds no accessory muscle use Abdominal: Soft, non-tender, non-distended, no guarding, rebound, or rigidity Skin: Warm, dry Extremities: No edema or contractures Psychiatric: Awake, not answering any questions or making eye contact, not following directions Neuro: Moving all extremities, unable to assess Assessment/plan Altered mentation, possibly secondary to morphine in setting of acute kidney injury -ABG and repeat chest x-ray ordered -Neuro checks -Supplemental oxygen -Consider BiPAP if hypercapnia noted
--- NOTE | 2020-09-04 23:55 | XR ---
EXAMINATION TYPE: XR chest 1V portable DATE OF EXAM: 09/04/2020 COMPARISON: Today HISTORY: Hypoxemia TECHNIQUE: Single view FINDINGS: There is some linear infiltrate and atelectasis left lower lobe. There is no gross heart fa ilure. Heart appears enlarged. There is some infiltrate medial right lung base. IMPRESSION: Increasing infiltrate and atelectasis in both lower lobes compared to exam 8 hours ago.
[2020-09-04 23:57] LABS: ABG HCO3 37 mmol/L (21-25); ABG Oxygen Saturation 99.1 % (94-97); ABG PH 7.33 (7.35-7.45); ABG PO2 115 mmHg (83-108); ABG TCO2 39 mmol/L (19-24); Allen Test Performed? Yes
[2020-09-05] MEDS ORDERED: SODIUM CHLORIDE 0.9% 1,000 ML IV ONE
[2020-09-05 00:07] LABS: ABG PCO2 71 mmHg (35-45)
[2020-09-05 00:43] LABS: Appearance,Urine Clear (Clear); Bilirubin,Urine Negative (Negative); Blood,Urine Moderate (Negative); Color,Urine Yellow; Glucose,Urine (UA) 3+ (Negative); Hyaline Casts,Urine 8 /lpf (0-2); Ketones,Urine Negative (Negative); Leukocyte Esterase,Urine Negative (Negative); Mucus,Urine Rare /hpf; Nitrite,Urine Negative (Negative); Protein,Urine Negative (Negative); RBC,Urine 31 /hpf (0-5); Urobilinogen,Urine <2.0 mg/dL (<2.0); WBC,Urine 3 /hpf (0-5)
[2020-09-05] MEDS: MELATONIN 3 MG TABLET PO SCH ×2 (01:02→21:01)
[2020-09-05] MEDS: METOPROLOL TARTRATE 50 MG TAB PO SCH ×3 (01:02→21:01)
[2020-09-05] MEDS: WARFARIN 2 MG TAB PO SCH ×2 (01:02→19:31)
[2020-09-05] MEDS: MONTELUKAST 10 MG TAB PO SCH ×2 (01:02→23:56)
[2020-09-05] MEDS: FUROSEMIDE 40 MG TAB PO SCH ×3 (01:02→21:01)
[2020-09-05] MEDS: PANTOPRAZOLE 40 MG TABLET PO SCH (01:03)
[2020-09-05] MEDS: GABAPENTIN 100 MG CAP PO SCH ×4 (01:03→21:01)
[2020-09-05] MEDS: SENNOSIDES-DOCUSATE SODIUM 1 EACH TAB PO SCH ×3 (01:03→21:00)
[2020-09-05] MEDS ORDERED: ACETAMINOPHEN IV (For NPO) 1,000 MG in EMPTY BAG 1 BAG IVPB ONE (02:15)
[2020-09-05] MEDS: NALOXONE 0.4 MG/ML 1 ML VIAL IV PRN (06:15)
[2020-09-05 06:46] LABS: Glucose,Whole Blood 189 mg/dL (75-99)
[2020-09-05 08:04] LABS: Glucose,Whole Blood 167 mg/dL (75-99)
[2020-09-05] MEDS: SYMBICORT 160-4.5 MCG INHALER INHALATION SCH (08:17)
--- NOTE | 2020-09-05 08:22 | P.CNPUL ---
History of Present Illness Consult date: 09/05/20 History of present illness: This is a 80-year-old male patient got transferred to the intensive. This morning because of altered mentation, dyspnea, hypoxemia and BiPAP dependent respiratory failure. The patient got admitted yesterday and history of essential limited as the patient was admitted under the care of the hospitalist group for pain to the left ankle and a sprain after a fall. There is no evidence of fracture based on the x-rays. However, in the emergency, the patient was given morphine and altered mental status that occurred on the floor was initially suspected to be related to morphine intake. The patient was given Narcan with suboptimal response. Following that, a blood gas was obtained and it showed a pH of 7.33 with a pCO2 of 71 and pO2 of 115 and this was done and FiO2 of 40%. Based on these results, the patient was started on a BiPAP at a pressure of 12/5 cm of water with an FiO2 of 40% and following that the patient got transferred to the intensive care unit. The chest x-ray that was done overnight showed some atelectatic changes in lung bases bilaterally. No. Airspace disease. No gross signs of congestion heart failure. This patient has no significant leukocytosis. He is afebrile. At this point in time his blood pressure is systolic in the mid 90s. His anticoagulated regarding chronic atrial fibrillation and INR is at 2.8. Creatinine is up to 1.5 with a mean of 56. Sodium level is on down to 121. No seizure activity has been noted. He is quite lethargic yet arousable. He has previous history of CVA and chronic right-sided weakness. He is quite debilitated and is at higher risk of falls. He has been hospitalized in the past back in 2017 for staph septicemia. For now, is currently on no pressors. No skin rashes. There is some erythema along the left ankle area related to the recent fall. He has an extensive past medical history. 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 Review of Systems ROS unobtainable: due to mental status Past Medical History Past Medical History: Atrial Fibrillation, Asthma, Coronary Artery Disease (CAD), Heart Failure, COPD, CVA/TIA, Diabetes Mellitus, Eye Disorder, Fibromyalgia, GERD/Reflux, Hyperlipidemia, Hypertension, Osteoarthritis (OA), Pneumonia Additional Past Medical History / Comment(s): neuropathy bilateral feet, ische lacho cardiomyopathy, 2008 CVA with R sided weaknes upper and lower extremities, uses walker with assistance, bilateral eyes glaucoma, hiatal hernia and gets food "stuck" at times, chronic low back pain, herniated discs, insomnia, 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 History of Any Multi-Drug Resistant Organisms: None Reported Past Surgical History: Back Surgery, Heart Catheterization With Stent, Orthopedic Surgery, Prostate Surgery Additional Past Surgical History / Comment(s): unsuccessful cardioversion in 2017, endoscopic sinus surgery/polypectomy, colonoscopy, TURP, bilateral hydrocelectomy, rt elbow surgery, toñito cataracts, laminectomy, recent stent placement 08/26/2019 2 cardiac stent, 1 stent ilitac artery Past Anesthesia/Blood Transfusion Reactions: No Reported Reaction Date of Last Stent Placement:: 2019 Past Psychological History: Anxiety, Depression Smoking Status: Never smoker Past Alcohol Use History: None Reported Past Drug Use History: None Reported - Past Family History Mother Family Medical History: No Reported History Father Family Medical History: Cancer Additional Family Medical History / Comment(s): Father had prostrate cancer. Medications and Allergies Home Medications Medication Instructions Recorded Confirmed Type Methadone [Dolophine] 5 mg PO Q8H #9 tab 09/13/17 09/04/20 Rx Fluticasone Nasal [place] [Flonase 2 spr EA NOSTRIL DAILY 10/31/18 09/04/20 History Nasal [place]] Magnesium Oxide [Mag-Ox] 250 mg PO DAILY 10/31/18 09/04/20 History Montelukast [Singulair] 10 mg PO HS 10/31/18 09/04/20 History Nitroglycerin Sl Tabs [Nitrostat] 0.4 mg SUBLINGUAL Q5M PRN 10/31/18 09/04/20 History Sertraline [Zoloft] 100 mg PO DAILY 10/31/18 09/04/20 History Melatonin 3 mg PO HS tablet 11/08/18 09/04/20 Rx Metoprolol Tartrate [Lopressor] 50 mg PO BID #60 tab 11/08/18 09/04/20 Rx Atorvastatin [Lipitor] 40 mg PO DAILY #30 tab 08/30/19 09/04/20 Rx Losartan [Cozaar] 25 mg PO DAILY #30 tab 08/30/19 09/04/20 Rx Sennosides-Docusate Sodium 2 tab PO BID 09/02/19 09/04/20 History [Senokot-S] Clopidogrel [Plavix] 75 mg PO DAILY #30 tab 09/10/19 09/04/20 Rx Insulin Aspart [NovoLOG Flexpen] See Protocol SQ AC-TID #1 vial 09/10/19 09/04/20 Rx Budesonide/Formoterol Fumarate 2 puff INHALATION RT-BID 09/04/20 09/04/20 History [Symbicort 160-4.5 Mcg Inhaler] Furosemide [Lasix] 40 mg PO BID 09/04/20 09/04/20 History Gabapentin [Neurontin] 100 mg PO TID 09/04/20 09/04/20 History Insulin Glargine,Hum.rec.anlog 54 units SQ DAILY 09/04/20 09/04/20 History [Toujeo Solostar] Omeprazole [PriLOSEC] 20 mg PO BID 09/04/20 09/04/20 History Potassium Chloride ER [K-Dur 20] 20 meq PO DAILY 09/04/20 09/04/20 History Warfarin Sodium 2 mg PO TU 09/04/20 09/04/20 History Warfarin Sodium 4 mg PO SUMOWETHFRSA 09/04/20 09/04/20 History metOLazone [Zaroxolyn] 2.5 mg PO DAILY PRN 09/04/20 09/04/20 History traZODone HCL [Desyrel] 50 mg PO HS PRN 09/04/20 09/04/20 History Allergies Allergy/AdvReac Type Severity Reaction Status Date / Time Sulfa (Sulfonamide Allergy Rash/Hives Verified 09/04/20 16:03 Antibiotics) morphine AdvReac Severe Unknown Verified 09/05/20 06:25 Physical Exam Vitals: Vital Signs Temp Pulse Pulse Resp BP BP BP 09/05/20 07:14 90 94/62 09/05/20 06:37 74 76/50 09/05/20 06:15 15 09/05/20 06:13 83 83/51 09/05/20 03:30 98.4 F 09/05/20 02:03 101.4 F H 86 14 101/57 09/04/20 23:55 17 09/04/20 23:09 88 09/04/20 22:59 92 09/04/20 22:20 17 09/04/20 20:38 89 16 09/04/20 20:37 09/04/20 19:16 98.0 F 89 16 105/61 09/04/20 17:40 98.8 F 85 18 101/56 09/04/20 17:01 82 18 108/66 09/04/20 16:36 99.8 F H 09/04/20 15:36 97 09/04/20 14:36 09/04/20 14:35 09/04/20 14:32 99.3 F 58 L 16 131/86 Pulse Ox 09/05/20 07:14 09/05/20 06:37 100 09/05/20 06:15 09/05/20 06:13 100 09/05/20 03:30 09/05/20 02:03 97 09/04/20 23:55 09/04/20 23:09 09/04/20 22:59 09/04/20 22:20 09/04/20 20:38 09/04/20 20:37 94 L 09/04/20 19:16 94 L 09/04/20 17:40 94 L 09/04/20 17:01 95 09/04/20 16:36 09/04/20 15:36 94 L 09/04/20 14:36 95 09/04/20 14:35 78 L 09/04/20 14:32 90 L Intake and Output 09/04/20 09/05/20 09/05/20 22:59 06:59 14:59 Output Total 1400 Balance -1400 Output: Urine 700 Post Void Residual 700 Other: Voiding Method Toilet Urinal Urinal Self-Catheterization Weight 108.862 kg Gen. appearance, the patient is lethargic, arousable, right-sided thigh to be compared to the left and this is related to previous CVA. He opens eyes spontaneously. Follows simple commands and answer simple questions. He is currently on a BiPAP and he seems to be quite centers the BiPAP machine. My normally had Head exam was generally normal. There was no scleral icterus or corneal arcus. Mucous membranes were moist. Neck was supple and without jugular venous distension, thyromegaly, or carotid bruits. Carotids were easily palpable bilaterally. There was no adenopathy. Lungs sounds are quite diminished in lung bases bilaterally. Scattered rhonchi. Scattered expiratory wheeze. Heart sounds are irregular, positive S1-S2, this is consistent with atrial fibrillation. No significant murmurs appreciated. Abdominal exam revealed normal bowel sounds. The abdomen was soft, non-tender, and without masses, organomegaly, or appreciable enlargement of the abdominal aorta. Examination of the extremities revealed easily palpable radial, femoral and pedal pulses. There was no cyanosis, clubbing Trace edema in lower extremities is appreciated Examination of the skin revealed no evidence of significant rashes, suspicious appearing nevi or other concerning lesions. Neurologically, the patient has equal and symmetrical pupils. He does have some occasional twitching injury. These are not automatic and they don't to be seizure related. The patient awake. Follows some simple commands. Motor function is slightly weaker on the right and this is related to previous CVA. Different areas are equal and symmetrical. No Babinski. No clonus. Positive cough. Positive gag. No facial asymmetry. Blood sugars Results - Laboratory Findings CBC and BMP: 09/04/20 14:46 09/04/20 14:46 ABG WBC 10.6 k/uL (3.8-10.6) 09/04/20 14:46 RBC 4.90 m/uL (4.30-5.90) 09/04/20 14:46 Hgb 14.7 gm/dL (13.0-17.5) 09/04/20 14:46 Hct 43.4 % (39.0-53.0) 09/04/20 14:46 MCV 88.6 fL (80.0-100.0) 09/04/20 14:46 MCH 29.9 pg (25.0-35.0) 09/04/20 14:46 MCHC 33.8 g/dL (31.0-37.0) 09/04/20 14:46 RDW 12.9 % (11.5-15.5) 09/04/20 14:46 Plt Count 209 k/uL (150-450) 09/04/20 14:46 MPV 8.6 09/04/20 14:46 Neutrophils % 86 % 09/04/20 14:46 Lymphocytes % 5 % 09/04/20 14:46 Monocytes % 6 % 09/04/20 14:46 Eosinophils % 1 % 09/04/20 14:46 Basophils % 0 % 09/04/20 14:46 Neutrophils # 9.1 k/uL (1.3-7.7) H 09/04/20 14:46 Lymphocytes # 0.6 k/uL (1.0-4.8) L 09/04/20 14:46 Monocytes # 0.7 k/uL (0-1.0) 09/04/20 14:46 Eosinophils # 0.1 k/uL (0-0.7) 09/04/20 14:46 Basophils # 0.0 k/uL (0-0.2) 09/04/20 14:46 PT 27.2 sec (9.0-12.0) H 09/04/20 14:46 INR 2.8 (<1.2) H 09/04/20 14:46 APTT 35.8 sec (22.0-30.0) H 09/04/20 14:46 ABG pH 7.33 (7.35-7.45) L 09/04/20 23:54 ABG pCO2 71 mmHg (35-45) H* 09/04/20 23:54 ABG pO2 115 mmHg (83-108) H 09/04/20 23:54 ABG O2 Saturation 99.1 % (94-97) H 09/04/20 23:54 Sodium 121 mmol/L (137-145) L 09/04/20 14:46 Potassium 3.3 mmol/L (3.5-5.1) L 09/04/20 14:46 Chloride 75 mmol/L (98-107) L 09/04/20 14:46 Carbon Dioxide 35 mmol/L (22-30) H 09/04/20 14:46 Anion Gap 11 mmol/L 09/04/20 14:46 BUN 56 mg/dL (9-20) H 09/04/20 14:46 Creatinine 1.51 mg/dL (0.66-1.25) H 09/04/20 14:46 Est GFR (CKD-EPI)AfAm 51 (>60 ml/min/1.73 sqM) 09/04/20 14:46 Est GFR (CKD-EPI)NonAf 44 (>60 ml/min/1.73 sqM) 09/04/20 14:46 Glucose 415 mg/dL (74-99) H 09/04/20 14:46 POC Glucose (mg/dL) 167 mg/dL (75-99) H 09/05/20 08:03 POC Glu Yarn Wrapper ID Leslie Lindsey 09/05/20 08:03 Lactic Ac Sepsis Rflx Y 09/04/20 15:23 Plasma Lactic Acid Alan 1.3 mmol/L (0.7-2.0) 09/04/20 18:11 Calcium 8.1 mg/dL (8.4-10.2) L 09/04/20 14:46 Magnesium 1.8 mg/dL (1.6-2.3) 09/04/20 14:46 Total Bilirubin 0.5 mg/dL (0.2-1.3) 09/04/20 14:46 AST 22 U/L (17-59) 09/04/20 14:46 ALT 16 U/L (4-49) 09/04/20 14:46 Alkaline Phosphatase 102 U/L (38-126) 09/04/20 14:46 Troponin I 0.026 ng/mL (0.000-0.034) 09/04/20 14:46 NT-Pro-B Natriuret Pep 2210 pg/mL 09/04/20 18:11 Total Protein 6.4 g/dL (6.3-8.2) 09/04/20 14:46 Albumin 3.4 g/dL (3.5-5.0) L 09/04/20 14:46 Procalcitonin 0.24 ng/mL (0.02-0.09) H 09/04/20 18:11 Urine Color Yellow 09/05/20 00:33 Urine Appearance Clear (Clear) 09/05/20 00:33 Urine pH 5.0 (5.0-8.0) 09/05/20 00:33 Ur Specific [place] 1.010 (1.001-1.035) 09/05/20 00:33 Urine Protein Negative (Negative) 09/05/20 00:33 Urine Glucose (UA) 3+ (Negative) H 09/05/20 00:33 Urine Ketones Negative (Negative) 09/05/20 00:33 Urine Blood Moderate (Negative) H 09/05/20 00:33 Urine Nitrite Negative (Negative) 09/05/20 00:33 Urine Bilirubin Negative (Negative) 09/05/20 00:33 Urine Urobilinogen <2.0 mg/dL (<2.0) 09/05/20 00:33 Ur Leukocyte Esterase Negative (Negative) 09/05/20 00:33 Urine RBC 31 /hpf (0-5) H 09/05/20 00:33 Urine WBC 3 /hpf (0-5) 09/05/20 00:33 Hyaline Casts 8 /lpf (0-2) H 09/05/20 00:33 Urine Mucus Rare /hpf (None) H 09/05/20 00:33 Coronavirus (PCR) Not Detected (Not Detectd) 09/04/20 16:23 PT/INR, D-dimer PT 27.2 sec (9.0-12.0) H 09/04/20 14:46 INR 2.8 (<1.2) H 09/04/20 14:46 Abnormal lab findings: Abnormal Labs 09/04/20 09/04/20 09/04/20 14:46 14:46 14:46 Neutrophils # 9.1 H Lymphocytes # 0.6 L PT 27.2 H INR 2.8 H APTT 35.8 H ABG pH ABG pCO2 ABG pO2 ABG HCO3 ABG Total CO2 ABG O2 Saturation Sodium 121 L Potassium 3.3 L Chloride 75 L Carbon Dioxide 35 H BUN 56 H Creatinine 1.51 H Glucose 415 H POC Glucose (mg/dL) Plasma Lactic Acid Alan Calcium 8.1 L Albumin 3.4 L Procalcitonin Urine Glucose (UA) Urine Blood Urine RBC Hyaline Casts Urine Mucus 09/04/20 09/04/20 09/04/20 14:46 16:15 18:11 Neutrophils # Lymphocytes # PT INR APTT ABG pH ABG pCO2 ABG pO2 ABG HCO3 ABG Total CO2 ABG O2 Saturation Sodium Potassium Chloride Carbon Dioxide BUN Creatinine Glucose POC Glucose (mg/dL) 375 H Plasma Lactic Acid Alan 3.5 H* Calcium Albumin Procalcitonin 0.24 H Urine Glucose (UA) Urine Blood Urine RBC Hyaline Casts Urine Mucus 09/04/20 09/04/20 09/05/20 21:52 23:54 00:33 Neutrophils # Lymphocytes # PT INR APTT ABG pH 7.33 L ABG pCO2 71 H* ABG pO2 115 H ABG HCO3 37 H ABG Total CO2 39 H ABG O2 Saturation 99.1 H Sodium Potassium Chloride Carbon Dioxide BUN Creatinine Glucose POC Glucose (mg/dL) 208 H Plasma Lactic Acid Alan Calcium Albumin Procalcitonin Urine Glucose (UA) 3+ H Urine Blood Moderate H Urine RBC 31 H Hyaline Casts 8 H Urine Mucus Rare H 09/05/20 09/05/20 06:45 08:03 Neutrophils # Lymphocytes # PT INR APTT ABG pH ABG pCO2 ABG pO2 ABG HCO3 ABG Total CO2 ABG O2 Saturation Sodium Potassium Chloride Carbon Dioxide BUN Creatinine Glucose POC Glucose (mg/dL) 189 H 167 H Plasma Lactic Acid Alan Calcium Albumin Procalcitonin Urine Glucose (UA) Urine Blood Urine RBC Hyaline Casts Urine Mucus - Diagnostic Findings Chest x-ray: image reviewed Assessment and Plan Plan: #1. Acute hypoxic /hypercapnic respiratory failure. Exact cause is not clear. Chest x-ray showing some atelectatic changes in lung bases. No clear indication for an underlying pneumonia. 2 be drug induced as the patient was given morphine and he takes methadone. He was given Narcan with limited response. Currently is on a BiPAP. Further investigations in progress. Rule out recurrent CVA. Rule out underlying infection/sepsis. Rule out drug induced metabolic encephalopathy. Rule out electrolyte imbalance causing altered mentation encephalopathy and subsequent respiratory failure. #2. COPD, not O2 dependent #3. Chronic persistent atrial fibrillation on chronic anticoagulation, and currently INR is currently therapeutic #4. Hyponatremia, could be related to diuretics an underlying congestion heart failure. #5. Coronary artery disease, status post stenting #6. History of CVA with residual right-sided weakness #7. Ischemic cardiomyopathy with reduced left ventricular systolic function, the latest echocardiogram from 07/10/2017 showed overall moderately impaired left ventricular function with EF between 35-40% #8. Diabetes mellitus, on long-acting insulin #9. Gait dysfunction, of fall with sprain of the left ankle and some skin bruising #10. Hypertension #11. Depression #12. Chronic pain syndrome #13. Previous episodes of pneumonia #14. History of benign prostatic hypertrophy status post TURP procedure #15. History of hiatal hernia #16. Remote history of smoking # 17, hyperlipidemia #18 previous history of staphylococcal sepsis back in 2018 Plan Continue BiPAP for respiratory support for now Avoid any form of narcotics for now Corrected high port corrected hyponatremia slowly and the patient will be given 3% hypertonic saline at the rate of 30 mL an hour and the sodium level will be monitored. Continue same antibiotic coverage for now will send blood cultures Well-established lines including central line and arterial line CAT scan of the brain was noted and it showed no acute abnormalities DO NOT RESUSCITATE DO NOT INTUBATE CODE STATUS Hold long-acting insulin, the patient only with sliding scale coverage We'll continue following in the intensive care unit and make further recommendations based on his progress.
--- NOTE | 2020-09-05 08:35 | P.PCN ---
Date of Procedure: 09/05/20 Preoperative Diagnosis: acute hypoxic respiratory failure Postoperative Diagnosis: Acute hypoxic respiratory failure Procedure(s) Performed: central line Anesthesia: local Surgeon: Merna Brumfield Estimated Blood Loss (ml): 0 Pathology: none sent Condition: critical Disposition: ICU Operative Findings: Indication: Hemodynamic monitoring/Intravenous access. A time-out was completed verifying correct patient, procedure, site, positioning, and implant(s) or special equipment if applicable. The patient was placed in a dependent position appropriate for central line placement based on the vein to be cannulated. The patients left neck was prepped and draped in sterile fashion. 1% Lidocaine was used to anesthetize the surrounding skin area. A triple lumen 9F Cordis catheter was introduced into the left internal jugular vein using Seldinger technique. The catheter was threaded smoothly over the guide wire and appropriate blood return was obtained. Each lumen of the catheter was evacuated of air and flushed with sterile saline. The catheter was then sutured in place to the skin and a sterile dressing applied. Perfusion to the extremity distal to the point of catheter insertion was checked and found to be adequate. The patient tolerated the procedure well and there were no complications.
[2020-09-05] MEDS: INSULIN ASPART (NovoLOG) 100 UNIT/ML VIAL SQ SCH ×3 (08:59→18:58)
[2020-09-05] MEDS: PANTOPRAZOLE 40 MG/10 ML VIAL IVP SCH ×2 (09:00→21:01)
[2020-09-05] MEDS ORDERED: INSULIN DETEMIR (LEVEMIR) 100 UNIT/ML SYR SQ SCH (09:00)
[2020-09-05 09:04] LABS: Basophils # (A) 0.1 k/uL (0-0.2); Basophils % (A) 1 %; Eosinophils # (A) 0.2 k/uL (0-0.7); Eosinophils % (A) 2 %; HCT 40.6 % (39.0-53.0); HGB 13.8 gm/dL (13.0-17.5); Lymphocytes % (A) 10 %; MCHC 33.9 g/dL (31.0-37.0); MCV 88.4 fL (80.0-100.0); Mean Platelet Volume 8.7; Monocytes # (A) 0.7 k/uL (0-1.0); Monocytes % (A) 7 %; Neutrophils # (A) 7.6 k/uL (1.3-7.7); Neutrophils % (A) 79 %; Platelet Count 213 k/uL (150-450); WBC 9.6 k/uL (3.8-10.6)
[2020-09-05] MEDS: CLOPIDOGREL 75 MG TAB PO SCH (09:04)
[2020-09-05] MEDS: ATORVASTATIN 40 MG TAB PO SCH (09:07)
[2020-09-05 09:13] LABS: Albumin 2.7 g/dL (3.5-5.0); Calcium 8.1 mg/dL (8.4-10.2); Magnesium 1.9 mg/dL (1.6-2.3); Potassium 3.8 mmol/L (3.5-5.1); Total Bilirubin 0.6 mg/dL (0.2-1.3); Total Protein 5.5 g/dL (6.3-8.2)
[2020-09-05 09:17] LABS: INR 2.6 (<1.2); Prothrombin Time 25.1 sec (9.0-12.0)
--- NOTE | 2020-09-05 09:23 | XR ---
EXAMINATION TYPE: XR chest 1V portable DATE OF EXAM: 09/05/2020 COMPARISON: 09/04/2020 and prior HISTORY: Central line placement TECHNIQUE: Single frontal view of the chest is obtained. FINDINGS AND IMPRESSION: Interval placement of left jugular CVC tip ejects over the SVC. Stable pulmonary vascular congestion and bibasilar opacities which could be on the basis of atelectas is and/or pneumonia. Prominence of the cardiac silhouette. Mediastinal silhouette within normal. No large pleural effusion or pneumothorax. No acute osseous abnormality.
[2020-09-05] MEDS: SODIUM CHLORIDE 3%(HYPERTONIC) 500 ML IV SCH (10:05)
[2020-09-05] MEDS: LOSARTAN 25 MG TAB PO SCH (11:17)
[2020-09-05] MEDS: SERTRALINE 100 MG TAB PO SCH (11:17)
[2020-09-05] MEDS: FLUTICASONE 50MCG/SPRAY NASAL 16GM EA NOSTRIL SCH (11:18)
[2020-09-05] MEDS: IPRATROPIUM-ALBUTEROL 3 ML NEB INHALATION SCH ×3 (11:23→21:02)
[2020-09-05 12:32] LABS: Glucose,Whole Blood 157 mg/dL (75-99)
--- NOTE | 2020-09-05 13:27 | P.PN ---
Subjective Progress Note Date: 09/05/20 Pt had episode of somnolence and worsening respiratory failure which responded to narcan. Pt now in the ICU for closer monitoring, rec'ing 3% NS for hyponatremia. Echo pending. Objective - Vital Signs Vital signs: Vital Signs Temp 97.8 F 09/05/20 12:00 Pulse 95 09/05/20 12:00 Resp 30 H 09/05/20 12:00 BP 99/61 09/05/20 12:00 Pulse Ox 94 L 09/05/20 12:00 Intake & Output 09/04/20 09/05/20 09/05/20 18:59 06:59 18:59 Intake Total 210 Output Total 1400 550 Balance -1400 -340 Weight 108.862 kg Intake: IV 210 Sodium Chloride 0.9% 1, 120 000 ml @ 20 mls/hr IV . Q24H [facility] Rx#:[id number] Sodium Chloride 3%( 90 Hypertonic) 500 ml @ 30 mls/hr IV .[id number] [facility] Rx #:[id number] Output: Urine 700 550 Post Void Residual 700 Other: Voiding Method Toilet Urinal Urinal Self-Catheterization - Exam Gen: Asleep, not arousable to voice HEENT: normocephalic, atraumatic, good hearing acuity, moist mucous membranes Resp: good air exchange, breathing comfortably with no accessory muscle use CVS: good distal perfusion x 4, GI: soft, NTTP, ND : no SPT, no CVAT, servin catheter not present MSK: Positive pitting edema, no clubbing Neuro: non-focal, moving all extremities - Labs CBC & Chem 7: 09/05/20 08:15 09/05/20 08:15 Labs: Abnormal Lab Results - Last 24 Hours (Table) 09/04/20 09/04/20 09/04/20 Range/Units 14:46 14:46 14:46 Neutrophils # 9.1 H (1.3-7.7) k/uL Lymphocytes # 0.6 L (1.0-4.8) k/uL PT 27.2 H (9.0-12.0) sec INR 2.8 H (<1.2) APTT 35.8 H (22.0-30.0) sec ABG pH (7.35-7.45) ABG pCO2 (35-45) mmHg ABG pO2 (83-108) mmHg ABG HCO3 (21-25) mmol/L ABG Total CO2 (19-24) mmol/L ABG O2 Saturation (94-97) % Sodium 121 L (137-145) mmol/L Potassium 3.3 L (3.5-5.1) mmol/L Chloride 75 L (98-107) mmol/L Carbon Dioxide 35 H (22-30) mmol/L BUN 56 H (9-20) mg/dL Creatinine 1.51 H (0.66-1.25) mg/dL Glucose 415 H (74-99) mg/dL POC Glucose (mg/dL) (75-99) mg/dL Plasma Lactic Acid Alan (0.7-2.0) mmol/L Calcium 8.1 L (8.4-10.2) mg/dL Troponin I (0.000-0.034) ng/mL Total Protein (6.3-8.2) g/dL Albumin 3.4 L (3.5-5.0) g/dL Procalcitonin (0.02-0.09) ng/mL Urine Glucose (UA) (Negative) Urine Blood (Negative) Urine RBC (0-5) /hpf Hyaline Casts (0-2) /lpf Urine Mucus (None) /hpf 09/04/20 09/04/20 09/04/20 Range/Units 14:46 16:15 18:11 Neutrophils # (1.3-7.7) k/uL Lymphocytes # (1.0-4.8) k/uL PT (9.0-12.0) sec INR (<1.2) APTT (22.0-30.0) sec ABG pH (7.35-7.45) ABG pCO2 (35-45) mmHg ABG pO2 (83-108) mmHg ABG HCO3 (21-25) mmol/L ABG Total CO2 (19-24) mmol/L ABG O2 Saturation (94-97) % Sodium (137-145) mmol/L Potassium (3.5-5.1) mmol/L Chloride (98-107) mmol/L Carbon Dioxide (22-30) mmol/L BUN (9-20) mg/dL Creatinine (0.66-1.25) mg/dL Glucose (74-99) mg/dL POC Glucose (mg/dL) 375 H (75-99) mg/dL Plasma Lactic Acid Alan 3.5 H* (0.7-2.0) mmol/L Calcium (8.4-10.2) mg/dL Troponin I (0.000-0.034) ng/mL Total Protein (6.3-8.2) g/dL Albumin (3.5-5.0) g/dL Procalcitonin 0.24 H (0.02-0.09) ng/mL Urine Glucose (UA) (Negative) Urine Blood (Negative) Urine RBC (0-5) /hpf Hyaline Casts (0-2) /lpf Urine Mucus (None) /hpf 09/04/20 09/04/20 09/05/20 Range/Units 21:52 23:54 00:33 Neutrophils # (1.3-7.7) k/uL Lymphocytes # (1.0-4.8) k/uL PT (9.0-12.0) sec INR (<1.2) APTT (22.0-30.0) sec ABG pH 7.33 L (7.35-7.45) ABG pCO2 71 H* (35-45) mmHg ABG pO2 115 H (83-108) mmHg ABG HCO3 37 H (21-25) mmol/L ABG Total CO2 39 H (19-24) mmol/L ABG O2 Saturation 99.1 H (94-97) % Sodium (137-145) mmol/L Potassium (3.5-5.1) mmol/L Chloride (98-107) mmol/L Carbon Dioxide (22-30) mmol/L BUN (9-20) mg/dL Creatinine (0.66-1.25) mg/dL Glucose (74-99) mg/dL POC Glucose (mg/dL) 208 H (75-99) mg/dL Plasma Lactic Acid Alan (0.7-2.0) mmol/L Calcium (8.4-10.2) mg/dL Troponin I (0.000-0.034) ng/mL Total Protein (6.3-8.2) g/dL Albumin (3.5-5.0) g/dL Procalcitonin (0.02-0.09) ng/mL Urine Glucose (UA) 3+ H (Negative) Urine Blood Moderate H (Negative) Urine RBC 31 H (0-5) /hpf Hyaline Casts 8 H (0-2) /lpf Urine Mucus Rare H (None) /hpf 09/05/20 09/05/20 09/05/20 Range/Units 06:45 08:03 08:15 Neutrophils # (1.3-7.7) k/uL Lymphocytes # (1.0-4.8) k/uL PT 25.1 H (9.0-12.0) sec INR 2.6 H (<1.2) APTT (22.0-30.0) sec ABG pH (7.35-7.45) ABG pCO2 (35-45) mmHg ABG pO2 (83-108) mmHg ABG HCO3 (21-25) mmol/L ABG Total CO2 (19-24) mmol/L ABG O2 Saturation (94-97) % Sodium (137-145) mmol/L Potassium (3.5-5.1) mmol/L Chloride (98-107) mmol/L Carbon Dioxide (22-30) mmol/L BUN (9-20) mg/dL Creatinine (0.66-1.25) mg/dL Glucose (74-99) mg/dL POC Glucose (mg/dL) 189 H 167 H (75-99) mg/dL Plasma Lactic Acid Alan (0.7-2.0) mmol/L Calcium (8.4-10.2) mg/dL Troponin I (0.000-0.034) ng/mL Total Protein (6.3-8.2) g/dL Albumin (3.5-5.0) g/dL Procalcitonin (0.02-0.09) ng/mL Urine Glucose (UA) (Negative) Urine Blood (Negative) Urine RBC (0-5) /hpf Hyaline Casts (0-2) /lpf Urine Mucus (None) /hpf 09/05/20 09/05/20 09/05/20 Range/Units 08:15 08:15 12:29 Neutrophils # (1.3-7.7) k/uL Lymphocytes # (1.0-4.8) k/uL PT (9.0-12.0) sec INR (<1.2) APTT (22.0-30.0) sec ABG pH (7.35-7.45) ABG pCO2 (35-45) mmHg ABG pO2 (83-108) mmHg ABG HCO3 (21-25) mmol/L ABG Total CO2 (19-24) mmol/L ABG O2 Saturation (94-97) % Sodium 124 L (137-145) mmol/L Potassium (3.5-5.1) mmol/L Chloride 82 L (98-107) mmol/L Carbon Dioxide 39 H (22-30) mmol/L BUN 61 H (9-20) mg/dL Creatinine 1.68 H (0.66-1.25) mg/dL Glucose 176 H (74-99) mg/dL POC Glucose (mg/dL) 157 H (75-99) mg/dL Plasma Lactic Acid Alan (0.7-2.0) mmol/L Calcium 8.1 L (8.4-10.2) mg/dL Troponin I 0.035 H* (0.000-0.034) ng/mL Total Protein 5.5 L (6.3-8.2) g/dL Albumin 2.7 L (3.5-5.0) g/dL Procalcitonin (0.02-0.09) ng/mL Urine Glucose (UA) (Negative) Urine Blood (Negative) Urine RBC (0-5) /hpf Hyaline Casts (0-2) /lpf Urine Mucus (None) /hpf Microbiology - Last 24 Hours (Table) 09/05/20 08:15 Urine Culture - Preliminary Urine,Catheterized Assessment and Plan Assessment: Community acquired pneumonia Acute hypoxemic respiratory failure Ischemic cardiomyopathy causing Acute on Chronic Heart Failure with reduced ejection fraction, EF 30-35% Lactic acidosis -Admit to inpatient, telemetry -Oxygen when necessary -Ceftriaxone/azithromycin -Follow up blood culture, sputum culture -Follow up pro-calcitonin = mildly elevated at 0.24, BNP = 2210 -f/u echo, pending -lasix 40mg PO BID, KVO fluids Hyponatremia and hypokalemia Acute kidney injury superimposed on CK D stage III -Daily BMP, magnesium; Na q4h -Currently on 3% NS @ 30cc/hr Moderate persistent asthma Permanent atrial fibrillation, rate controlled CAD HTN HLD DM 2 -Home medications reviewed and reconciled -DuoNeb's when necessary, continue home Symbicort, fluticasone, montelukast -Continue Plavix, Coumadin, metoprolol, losartan -Continue home gabapentin, Accu-Cheks every before meals/at bedtime, low-dose sliding scale insulin, 54 units daily of long-acting -Continue atorvastatin -Holding home methadone -Repeat echocardiogram Patient is a full code DVT prophylaxis covered with Coumadin
--- NOTE | 2020-09-05 13:34 | ECHOF ---
Referral Reason:HF MEASUREMENTS -------- HEIGHT: 182.9 cm WEIGHT: 108.9 kg BP: RVIDd: 4.1 cm (< 3.3) IVSd: 1.5 cm (0.6 - 1.1) LVIDd: 4.8 cm (3.9 - 5.3) LVPWd: 1.5 cm (0.6 - 1.1) IVSs: 1.4 cm LVIDs: 3.9 cm LVPWs: 1.7 cm Ao Diam: 3.0 cm (2.0 - 3.7) AV Cusp: 1.6 cm (1.5 - 2.6) LA Diam: 4.6 cm (2.7 - 3.8) MV EXCURSION: 26.030 mm (> 18.000) MV EF SLOPE: 106 mm/s (70 - 150) EPSS: 1.1 cm RAP: 5.00 mmHg RVSP: 35.35 mmHg FINDINGS -------- Undetermined rhythm. This was a techncally difficult study with suboptimal views, , Lumason utilized for enhancement of im ages. Overall left ventricular systolic function is mildly impaired with, an EF between 45 - 50 %. The right ventricle is moderately enlarged. The left atrium is mildly dilated. The right atrial size is normal. The aortic valve is trileaflet, and appears structurally normal. No aortic stenosis or regurgitation. Mild mitral annular calcification present. Mild mitral regurgitation is present. No regurgitation noted There is mild pulmonary hypertension. The right ventricular systolic press ure, as measured by Doppler, is 35.35mmHg. There is no pulmonic regurgitation present. There is no pericardial effusion. CONCLUSIONS -------- 1. This was a techncally difficult study with suboptimal views, , Lumason utilized for enhancement of images. 2. Overall left ventricular systolic function is mildly impaired with, an EF between 45 - 50 %. 3. The right ventricle is moderately enlarged. 4. The left atrium is mildly dilated. 5. The right atrial size is normal. 6. The aortic valve is trileaflet, and appears structurally normal. No aortic stenosis or regurgitati on. 7. Mild mitral annular calcification present. 8. Mild mitral regurgitation is present. 9. No regurgitation noted 10. There is mild pulmonary hypertension. 11. The right ventricular systolic pressure, as measured by Doppler, is 35.35mmHg. 12. There is no pericardial effusion. GTA: Maryam Zamora RDCS
[2020-09-05] MEDS ORDERED: AZITHROMYCIN 500 MG in SODIUM CHLORIDE 0.9% 250 ML IVPB SCH (16:00)
[2020-09-05 21:27] LABS: Glucose,Whole Blood 256 mg/dL (75-99)
[2020-09-05 23:36] LABS: Potassium 4.1 mmol/L (3.5-5.1)
[2020-09-06] MEDS: SODIUM CHLORIDE 3%(HYPERTONIC) 500 ML IV SCH (02:14)
[2020-09-06 03:27] LABS: Basophils % (A) 1 %; Eosinophils # (A) 0.3 k/uL (0-0.7); Eosinophils % (A) 4 %; HCT 37.9 % (39.0-53.0); HGB 12.9 gm/dL (13.0-17.5); Lymphocytes % (A) 12 %; MCH 30.1 pg (25.0-35.0); MCHC 33.9 g/dL (31.0-37.0); MCV 88.8 fL (80.0-100.0); Mean Platelet Volume 8.4; Monocytes # (A) 0.9 k/uL (0-1.0); Monocytes % (A) 12 %; Neutrophils # (A) 5.3 k/uL (1.3-7.7); Neutrophils % (A) 68 %; Platelet Count 173 k/uL (150-450); RBC 4.27 m/uL (4.30-5.90); WBC 7.8 k/uL (3.8-10.6)
[2020-09-06 03:37] LABS: Potassium 3.5 mmol/L (3.5-5.1)
[2020-09-06 03:38] LABS: Albumin 2.5 g/dL (3.5-5.0); Total Bilirubin 0.5 mg/dL (0.2-1.3); Total Protein 5.3 g/dL (6.3-8.2)
[2020-09-06 03:39] LABS: INR 2.2 (<1.2); Prothrombin Time 21.1 sec (9.0-12.0)
[2020-09-06] MEDS: POTASSIUM CHLORIDE ER 20 MEQ TAB.ER PO SCH ×2 (04:45→05:43)
[2020-09-06 06:52] LABS: Glucose,Whole Blood 171 mg/dL (75-99)
[2020-09-06] MEDS: INSULIN ASPART (NovoLOG) 100 UNIT/ML VIAL SQ SCH ×4 (06:56→21:05)
[2020-09-06] MEDS: IPRATROPIUM-ALBUTEROL 3 ML NEB INHALATION SCH ×4 (07:39→19:10)
[2020-09-06] MEDS: SERTRALINE 100 MG TAB PO SCH (08:35)
[2020-09-06] MEDS: FLUTICASONE 50MCG/SPRAY NASAL 16GM EA NOSTRIL SCH (08:35)
[2020-09-06] MEDS: CLOPIDOGREL 75 MG TAB PO SCH (08:35)
[2020-09-06] MEDS: ATORVASTATIN 40 MG TAB PO SCH (08:35)
[2020-09-06] MEDS: METOPROLOL TARTRATE 50 MG TAB PO SCH ×2 (08:35→21:05)
[2020-09-06] MEDS: FUROSEMIDE 40 MG TAB PO SCH (08:35)
[2020-09-06] MEDS: SENNOSIDES-DOCUSATE SODIUM 1 EACH TAB PO SCH ×2 (08:35→21:05)
[2020-09-06] MEDS: GABAPENTIN 100 MG CAP PO SCH ×3 (08:35→21:05)
[2020-09-06] MEDS: PANTOPRAZOLE 40 MG/10 ML VIAL IVP SCH ×2 (08:35→21:06)
--- NOTE | 2020-09-06 08:53 | P.PN ---
Subjective Progress Note Date: 09/06/20 This is a 80-year-old male patient got transferred to the intensive. This morning because of altered mentation, dyspnea, hypoxemia and BiPAP dependent respiratory failure. The patient got admitted yesterday and history of essential limited as the patient was admitted under the care of the hospitalist group for pain to the left ankle and a sprain after a fall. There is no evidence of fracture based on the x-rays. However, in the emergency, the patient was given morphine and altered mental status that occurred on the floor was initially suspected to be related to morphine intake. The patient was given Narcan with suboptimal response. Following that, a blood gas was obtained and it showed a pH of 7.33 with a pCO2 of 71 and pO2 of 115 and this was done and FiO2 of 40%. Based on these results, the patient was started on a BiPAP at a pressure of 12/5 cm of water with an FiO2 of 40% and following that the patient got transferred to the intensive care unit. The chest x-ray that was done rosita lindsey showed some atelectatic changes in lung bases bilaterally. No. Airspace disease. No gross signs of congestion heart failure. This patient has no significant leukocytosis. He is afebrile. At this point in time his blood pressure is systolic in the mid 90s. His anticoagulated regarding chronic atrial fibrillation and INR is at 2.8. Creatinine is up to 1.5 with a mean of 56. Sodium level is on down to 121. No seizure activity has been noted. He is quite lethargic yet arousable. He has previous history of CVA and chronic right-sided weakness. He is quite debilitated and is at higher risk of falls. He has been hospitalized in the past back in 2017 for staph septicemia. For now, is currently on no pressors. No skin rashes. There is some erythema along the left ankle area related to the recent fall. He has an extensive past medical history. 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 On today's evaluation of 09/06/2020, the patient is awake and oriented. Much more improved compared to yesterday. He is communicating. No altered mentatio n. He is off the BiPAP. He was on the BiPAP throughout the night yesterday. Note that during the day he was on and off taken off the BiPAP and this morning he is off the BiPAP is currently on oxygen at 2 L per minute nasal cannula. As far as mentation, this is improved. The patient was given 3% hypertonic saline and this was discontinued 4 AM this morning. The sodium level is up to 127. The patient is tolerating a regular diet. Cardiac rhythm remains A. fib. INR is therapeutic for now. Meanwhile, a repeat echocardiogram was done and the patient has a left ventricular ejection fraction 45-50%. RV is moderately dilated. PA pressure estimated to be 35. He remains on a combination of Rocephin and Zithromax. He is on metoprolol for rate control 50 mg by mouth twice a day. He is on Cozaar 25 mg for blood pressure control. The INR is at 2.2. Creatinine is at 63 with a creatinine of 1.5. Objective - Vital Signs Vital signs: Vital Signs Temp 98.4 F 09/06/20 08:00 Pulse 99 09/06/20 08:00 Resp 27 H 09/06/20 08:00 BP 115/73 09/06/20 08:00 Pulse Ox 96 09/06/20 08:00 Intake & Output 09/05/20 09/06/20 09/06/20 18:59 06:59 18:59 Intake Total 680 810 200 Output Total 895 1140 60 Balance -215 -330 140 Weight 118.6 kg Intake: IV 430 610 Azithromycin 500 mg In 250 Sodium Chloride 0.9% 250 ml @ 250 mls/hr IVPB Q24H [facility] Rx#:[id number] Sodium Chloride 0.9% 1, 220 10 000 ml @ 20 mls/hr IV . Q24H [facility] Rx#:[id number] Sodium Chloride 3%( 210 300 Hypertonic) 500 ml @ 30 mls/hr IV .[id number] [facility] Rx #:[id number] cefTRIAXone 1 gm In 50 Sodium Chloride 0.9% 50 ml @ 100 mls/hr IVPB Q24H [facility] Rx#:[id number] Oral 250 200 200 Output: Urine 895 1140 60 Other: Voiding Method Urinal Urinal Self-Catheterization Self-Catheterization - Exam Gen. appearance, the patient is is calm and comfortable and the patient is awake and alert and lying commands and answering questions appropriately. Head exam was generally normal. There was no scleral icterus or corneal arcus. Mucous membranes were moist. Neck was supple and without jugular venous distension, thyromegaly, or carotid bruits. Carotids were easily palpable bilaterally. There was no adenopathy. Lungs sounds are quite diminished in lung bases bilaterally. Scattered rhonchi. Scattered expiratory wheeze. Heart sounds are irregular, positive S1-S2, this is consistent with atrial fibrillation. No significant murmurs appreciated. Abdominal exam revealed normal bowel sounds. The abdomen was soft, non-tender, and without masses, organomegaly, or appreciable enlargement of the abdominal aorta. Examination of the extremities revealed easily palpable radial, femoral and pedal pulses. There was no cyanosis, clubbing Trace edema in lower extremities is appreciated Examination of the skin revealed no evidence of significant rashes, suspicious appearing nevi or other concerning lesions. Neurologically, the patient is intact with some old deficits related to his previous CVA. Otherwise awake and oriented 3 - Labs CBC & Chem 7: 09/06/20 03:00 09/06/20 07:18 Labs: Abnormal Lab Results - Last 24 Hours (Table) 09/05/20 09/05/20 09/05/20 Range/Units 08:15 08:15 08:15 RBC (4.30-5.90) m/uL Hgb (13.0-17.5) gm/dL Hct (39.0-53.0) % PT 25.1 H (9.0-12.0) sec INR 2.6 H (<1.2) Sodium 124 L (137-145) mmol/L Chloride 82 L (98-107) mmol/L Carbon Dioxide 39 H (22-30) mmol/L BUN 61 H (9-20) mg/dL Creatinine 1.68 H (0.66-1.25) mg/dL Glucose 176 H (74-99) mg/dL POC Glucose (mg/dL) (75-99) mg/dL Calcium 8.1 L (8.4-10.2) mg/dL Troponin I 0.035 H* (0.000-0.034) ng/mL Total Protein 5.5 L (6.3-8.2) g/dL Albumin 2.7 L (3.5-5.0) g/dL 09/05/20 09/05/20 09/05/20 Range/Units 12:29 12:45 19:00 RBC (4.30-5.90) m/uL Hgb (13.0-17.5) gm/dL Hct (39.0-53.0) % PT (9.0-12.0) sec INR (<1.2) Sodium 123 L 123 L (137-145) mmol/L Chloride (98-107) mmol/L Carbon Dioxide (22-30) mmol/L BUN (9-20) mg/dL Creatinine (0.66-1.25) mg/dL Glucose (74-99) mg/dL POC Glucose (mg/dL) 157 H (75-99) mg/dL Calcium (8.4-10.2) mg/dL Troponin I (0.000-0.034) ng/mL Total Protein (6.3-8.2) g/dL Albumin (3.5-5.0) g/dL 09/05/20 09/05/20 09/06/20 Range/Units 21:25 23:05 03:00 RBC (4.30-5.90) m/uL Hgb (13.0-17.5) gm/dL Hct (39.0-53.0) % PT (9.0-12.0) sec INR (<1.2) Sodium 122 L 127 L (137-145) mmol/L Chloride 86 L (98-107) mmol/L Carbon Dioxide 38 H (22-30) mmol/L BUN 63 H (9-20) mg/dL Creatinine 1.51 H (0.66-1.25) mg/dL Glucose 207 H (74-99) mg/dL POC Glucose (mg/dL) 256 H (75-99) mg/dL Calcium 8.0 L (8.4-10.2) mg/dL Troponin I (0.000-0.034) ng/mL Total Protein 5.3 L (6.3-8.2) g/dL Albumin 2.5 L (3.5-5.0) g/dL 09/06/20 09/06/20 09/06/20 Range/Units 03:00 03:00 06:50 RBC 4.27 L (4.30-5.90) m/uL Hgb 12.9 L (13.0-17.5) gm/dL Hct 37.9 L (39.0-53.0) % PT 21.1 H (9.0-12.0) sec INR 2.2 H (<1.2) Sodium (137-145) mmol/L Chloride (98-107) mmol/L Carbon Dioxide (22-30) mmol/L BUN (9-20) mg/dL Creatinine (0.66-1.25) mg/dL Glucose (74-99) mg/dL POC Glucose (mg/dL) 171 H (75-99) mg/dL Calcium (8.4-10.2) mg/dL Troponin I (0.000-0.034) ng/mL Total Protein (6.3-8.2) g/dL Albumin (3.5-5.0) g/dL 09/06/20 Range/Units 07:18 RBC (4.30-5.90) m/uL Hgb (13.0-17.5) gm/dL Hct (39.0-53.0) % PT (9.0-12.0) sec INR (<1.2) Sodium 127 L (137-145) mmol/L Chloride (98-107) mmol/L Carbon Dioxide (22-30) mmol/L BUN (9-20) mg/dL Creatinine (0.66-1.25) mg/dL Glucose (74-99) mg/dL POC Glucose (mg/dL) (75-99) mg/dL Calcium (8.4-10.2) mg/dL Troponin I (0.000-0.034) ng/mL Total Protein (6.3-8.2) g/dL Albumin (3.5-5.0) g/dL Microbiology - Last 24 Hours (Table) 09/04/20 16:45 Blood Culture - Preliminary Blood No Growth after 24 hours 09/04/20 16:30 Blood Culture - Preliminary Blood No Growth after 24 hours 09/05/20 08:15 Urine Culture - Preliminary Urine,Catheterized Assessment and Plan Plan: #1. Acute hypoxic /hypercapnic respiratory failure. Exact cause is not clear. Chest x-ray showing some atelectatic changes in lung bases. No clear indication for an underlying pneumonia. Could be drug induced as the patient was given morphine and he takes methadone. He was given Narcan with limited response. Currently is on a BiPAP. Further investigations in progress. Rule out recurrent CVA. Rule out underlying infection/sepsis. Rule out drug induced metabolic encephalopathy. Rule out electrolyte imbalance causing altered mentation encephalopathy and subsequent respiratory failure. On the morning of 09/06/2020, sodium level is improved and the patient is currently off the BiPAP on 2 L of oxygen by nasal cannula. No signs of any res piratory distress. #2. COPD, not O2 dependent #3. Chronic persistent atrial fibrillation on chronic anticoagulation, and currently INR is currently therapeutic #4. Hyponatremia, could be related to diuretics an underlying congestion heart failure. The levels are improving and the patient is off hypertonic saline. Mental status also improved. #5. Coronary artery disease, status post stenting #6. History of CVA with residual right-sided weakness #7. Ischemic cardiomyopathy with reduced left ventricular systolic function, the latest echocardiogram from 07/10/2017 showed overall moderately impaired left ventricular function with EF between 45% #8. Diabetes mellitus, on long-acting insulin #9. Gait dysfunction, of fall with sprain of the left ankle and some skin bruising #10. Hypertension #11. Depression #12. Chronic pain syndrome #13. Previous episodes of pneumonia #14. History of benign prostatic hypertrophy status post TURP procedure #15. History of hiatal hernia #16. Remote history of smoking # 17, hyperlipidemia #18 previous history of staphylococcal sepsis back in 2018 Plan Continue BiPAP only overnight and use the nasal cannula during the day Avoid any form of narcotics for now and if possible avoid it for another 24 hours Sodium level is improving and the patient will be taken off the hypertonic saline solution, awaiting follow-up levels Continue same antibiotic coverage for now blood cultures pending DO NOT RESUSCITATE DO NOT INTUBATE CODE STATUS Diet to be gradually advanced and the patient is currently on regular, carb consistent diet Pharmacy to proceed with Coumadin treatment to maintain INR between 2 and 3 Hold long-acting insulin, the patient only with sliding scale coverage We'll continue following in the intensive care unit and make further recommendations based on his progress.
[2020-09-06] MEDS: LOSARTAN 25 MG TAB PO SCH (10:58)
[2020-09-06 11:18] LABS: Glucose,Whole Blood 192 mg/dL (75-99)
--- NOTE | 2020-09-06 12:22 | P.PN ---
Subjective Progress Note Date: 09/06/20 No new complaints. Pt has improved in terms of mentation and oxygen requirement. Echo demonstrated reduced EF, elevated RVSP. Na improved to 127. Objective - Vital Signs Vital signs: Vital Signs Temp 98.4 F 09/06/20 08:00 Pulse 81 09/06/20 11:00 Resp 16 09/06/20 11:00 BP 135/75 09/06/20 11:00 Pulse Ox 98 09/06/20 11:00 Intake & Output 09/05/20 09/06/20 09/06/20 18:59 06:59 18:59 Intake Total 680 810 200 Output Total 895 1140 285 Balance -215 -330 -85 Weight 118.6 kg Intake: IV 430 610 Azithromycin 500 mg In 250 Sodium Chloride 0.9% 250 ml @ 250 mls/hr IVPB Q24H [facility] Rx#:[id number] Sodium Chloride 0.9% 1, 220 10 000 ml @ 20 mls/hr IV . Q24H [facility] Rx#:[id number] Sodium Chloride 3%( 210 300 Hypertonic) 500 ml @ 30 mls/hr IV .[id number] [facility] Rx #:[id number] cefTRIAXone 1 gm In 50 Sodium Chloride 0.9% 50 ml @ 100 mls/hr IVPB Q24H [facility] Rx#:[id number] Oral 250 200 200 Output: Urine 895 1140 285 Other: Voiding Method Urinal Urinal Indwelling Catheter Self-Catheterization Self-Catheterization - Exam Gen: Awake, alert HEENT: normocephalic, atraumatic, good hearing acuity, moist mucous membranes Resp: good air exchange, breathing comfortably with no accessory muscle use CVS: good distal perfusion x 4, GI: soft, NTTP, ND : no SPT, no CVAT, servin catheter not present MSK: Positive pitting edema, no clubbing Neuro: non-focal, moving all extremities - Labs CBC & Chem 7: 09/06/20 03:00 09/06/20 10:54 Labs: Abnormal Lab Results - Last 24 Hours (Table) 09/05/20 09/05/20 09/05/20 Range/Units 12:29 12:45 19:00 RBC (4.30-5.90) m/uL Hgb (13.0-17.5) gm/dL Hct (39.0-53.0) % PT (9.0-12.0) sec INR (<1.2) Sodium 123 L 123 L (137-145) mmol/L Chloride (98-107) mmol/L Carbon Dioxide (22-30) mmol/L BUN (9-20) mg/dL Creatinine (0.66-1.25) mg/dL Glucose (74-99) mg/dL POC Glucose (mg/dL) 157 H (75-99) mg/dL Calcium (8.4-10.2) mg/dL Total Protein (6.3-8.2) g/dL Albumin (3.5-5.0) g/dL 09/05/20 09/05/20 09/06/20 Range/Units 21:25 23:05 03:00 RBC (4.30-5.90) m/uL Hgb (13.0-17.5) gm/dL Hct (39.0-53.0) % PT (9.0-12.0) sec INR (<1.2) Sodium 122 L 127 L (137-145) mmol/L Chloride 86 L (98-107) mmol/L Carbon Dioxide 38 H (22-30) mmol/L BUN 63 H (9-20) mg/dL Creatinine 1.51 H (0.66-1.25) mg/dL Glucose 207 H (74-99) mg/dL POC Glucose (mg/dL) 256 H (75-99) mg/dL Calcium 8.0 L (8.4-10.2) mg/dL Total Protein 5.3 L (6.3-8.2) g/dL Albumin 2.5 L (3.5-5.0) g/dL 09/06/20 09/06/20 09/06/20 Range/Units 03:00 03:00 06:50 RBC 4.27 L (4.30-5.90) m/uL Hgb 12.9 L (13.0-17.5) gm/dL Hct 37.9 L (39.0-53.0) % PT 21.1 H (9.0-12.0) sec INR 2.2 H (<1.2) Sodium (137-145) mmol/L Chloride (98-107) mmol/L Carbon Dioxide (22-30) mmol/L BUN (9-20) mg/dL Creatinine (0.66-1.25) mg/dL Glucose (74-99) mg/dL POC Glucose (mg/dL) 171 H (75-99) mg/dL Calcium (8.4-10.2) mg/dL Total Protein (6.3-8.2) g/dL Albumin (3.5-5.0) g/dL 09/06/20 09/06/20 09/06/20 Range/Units 07:18 10:54 11:17 RBC (4.30-5.90) m/uL Hgb (13.0-17.5) gm/dL Hct (39.0-53.0) % PT (9.0-12.0) sec INR (<1.2) Sodium 127 L 127 L (137-145) mmol/L Chloride (98-107) mmol/L Carbon Dioxide (22-30) mmol/L BUN (9-20) mg/dL Creatinine (0.66-1.25) mg/dL Glucose (74-99) mg/dL POC Glucose (mg/dL) 192 H (75-99) mg/dL Calcium (8.4-10.2) mg/dL Total Protein (6.3-8.2) g/dL Albumin (3.5-5.0) g/dL Microbiology - Last 24 Hours (Table) 09/04/20 16:45 Blood Culture - Preliminary Blood No Growth after 24 hours 09/04/20 16:30 Blood Culture - Preliminary Blood No Growth after 24 hours 09/05/20 08:15 Urine Culture - Preliminary Urine,Catheterized Assessment and Plan Assessment: Community acquired pneumonia Acute hypoxemic respiratory failure Ischemic cardiomyopathy causing Acute on Chronic Heart Failure with reduced ejection fraction, EF 30-35% Lactic acidosis -Admit to inpatient, telemetry -Oxygen when necessary -Ceftriaxone/azithromycin -Follow up blood culture, sputum culture -Follow up pro-calcitonin = mildly elevated at 0.24, BNP = 2210 -f/u echo, EF 40-45%, elevated RVSP -lasix 40mg PO BID, was held 09/06 Hyponatremia and hypokalemia Acute kidney injury superimposed on CK D stage III -Daily BMP, magnesium; Na q4h -Currently on 3% NS @ 30cc/hr --> d/c'd 09/06 @ 0400 Moderate persistent asthma Permanent atrial fibrillation, rate controlled CAD HTN HLD DM 2 -Home medications reviewed and reconciled -DuoNeb's when necessary, continue home Symbicort, fluticasone, montelukast -Continue Plavix, Coumadin, metoprolol, losartan -Continue home gabapentin, Accu-Cheks every before meals/at bedtime, low-dose sliding scale insulin, 54 units daily of long-acting -Continue atorvastatin -Continue home methadone Patient is a full code DVT prophylaxis covered with Coumadin
[2020-09-06] MEDS: AZITHROMYCIN 500 MG TAB PO SCH (15:59)
[2020-09-06] MEDS: METHADONE 5 MG TAB PO SCH ×2 (15:59→21:05)
[2020-09-06 16:34] LABS: Glucose,Whole Blood 241 mg/dL (75-99)
[2020-09-06] MEDS: WARFARIN 2 MG TAB PO SCH (16:54)
[2020-09-06 20:37] LABS: Glucose,Whole Blood 264 mg/dL (75-99)
[2020-09-06] MEDS: MONTELUKAST 10 MG TAB PO SCH (21:05)
[2020-09-06] MEDS: MELATONIN 3 MG TABLET PO SCH (21:05)
[2020-09-07] MEDS ORDERED: SODIUM CHLORIDE 3%(HYPERTONIC) 500 ML IV SCH (00:30)
[2020-09-07 05:46] LABS: HCT 37.8 % (39.0-53.0); HGB 12.1 gm/dL (13.0-17.5); MCH 28.4 pg (25.0-35.0); MCHC 32.2 g/dL (31.0-37.0); MCV 88.4 fL (80.0-100.0); Mean Platelet Volume 8.1; Platelet Count 181 k/uL (150-450); RBC 4.27 m/uL (4.30-5.90); RDW 13.3 % (11.5-15.5); WBC 6.6 k/uL (3.8-10.6)
[2020-09-07 05:52] LABS: INR 1.5 (<1.2); Prothrombin Time 15.2 sec (9.0-12.0)
[2020-09-07 06:26] LABS: Albumin 2.4 g/dL (3.5-5.0); Calcium 8.2 mg/dL (8.4-10.2); Potassium 3.4 mmol/L (3.5-5.1); Total Bilirubin 0.5 mg/dL (0.2-1.3); Total Protein 5.1 g/dL (6.3-8.2)
[2020-09-07] MEDS: IPRATROPIUM-ALBUTEROL 3 ML NEB INHALATION SCH ×4 (07:32→19:38)
[2020-09-07 07:40] LABS: Glucose,Whole Blood 253 mg/dL (75-99)
[2020-09-07] MEDS: INSULIN ASPART (NovoLOG) 100 UNIT/ML VIAL SQ SCH ×4 (08:00→21:12)
[2020-09-07] MEDS: SERTRALINE 100 MG TAB PO SCH (09:20)
[2020-09-07] MEDS: SENNOSIDES-DOCUSATE SODIUM 1 EACH TAB PO SCH ×2 (09:20→21:11)
[2020-09-07] MEDS: METHADONE 5 MG TAB PO SCH ×3 (09:20→21:11)
[2020-09-07] MEDS: PANTOPRAZOLE 40 MG/10 ML VIAL IVP SCH ×2 (09:21→21:10)
[2020-09-07] MEDS: LOSARTAN 25 MG TAB PO SCH (09:21)
[2020-09-07] MEDS: FLUTICASONE 50MCG/SPRAY NASAL 16GM EA NOSTRIL SCH (09:21)
[2020-09-07] MEDS: GABAPENTIN 100 MG CAP PO SCH ×3 (09:21→21:10)
[2020-09-07] MEDS: ATORVASTATIN 40 MG TAB PO SCH (09:21)
[2020-09-07] MEDS: METOPROLOL TARTRATE 50 MG TAB PO SCH ×2 (09:21→21:11)
[2020-09-07 11:43] LABS: Glucose,Whole Blood 338 mg/dL (75-99)
--- NOTE | 2020-09-07 12:13 | P.PN ---
Subjective Progress Note Date: 09/07/20 No adverse events overnight. Pt reports stuffy nose. Objective - Vital Signs Vital signs: Vital Signs Temp 98.1 F 09/07/20 08:00 Pulse 80 09/07/20 11:20 Resp 18 09/07/20 08:00 BP 104/51 09/07/20 08:00 Pulse Ox 95 09/07/20 08:00 Intake & Output 09/06/20 09/07/20 09/07/20 18:59 06:59 18:59 Intake Total 300 420 Output Total 1605 900 350 Balance -1305 -480 -350 Intake: IV 120 Sodium Chloride 3%( 120 Hypertonic) 500 ml @ 30 mls/hr IV .[id number] [facility] Rx #:[id number] Intake, IV Titration 100 Amount cefTRIAXone 1 gm In 100 Sodium Chloride 0.9% 50 ml @ 100 mls/hr IVPB Q24H [facility] Rx#:[id number] Oral 200 300 Output: Urine 1605 900 350 Other: Voiding Method Indwelling Catheter Indwelling Catheter Indwelling Catheter - Exam Gen: Awake, alert HEENT: normocephalic, atraumatic, good hearing acuity, moist mucous membranes Resp: good air exchange, breathing comfortably with no accessory muscle use CVS: good distal perfusion x 4, GI: soft, NTTP, ND : no SPT, no CVAT, servin catheter not present MSK: Positive pitting edema, no clubbing Neuro: non-focal, moving all extremities - Labs CBC & Chem 7: 09/07/20 05:32 09/07/20 09:28 Labs: Abnormal Lab Results - Last 24 Hours (Table) 09/06/20 09/06/20 09/06/20 Range/Units 15:05 16:32 18:52 RBC (4.30-5.90) m/uL Hgb (13.0-17.5) gm/dL Hct (39.0-53.0) % PT (9.0-12.0) sec INR (<1.2) Sodium 127 L 125 L (137-145) mmol/L Potassium (3.5-5.1) mmol/L Chloride (98-107) mmol/L Carbon Dioxide (22-30) mmol/L BUN (9-20) mg/dL Glucose (74-99) mg/dL POC Glucose (mg/dL) 241 H (75-99) mg/dL Calcium (8.4-10.2) mg/dL Total Protein (6.3-8.2) g/dL Albumin (3.5-5.0) g/dL 09/06/20 09/06/20 09/07/20 Range/Units 20:35 23:02 05:32 RBC (4.30-5.90) m/uL Hgb (13.0-17.5) gm/dL Hct (39.0-53.0) % PT (9.0-12.0) sec INR (<1.2) Sodium 124 L 128 L (137-145) mmol/L Potassium 3.4 L (3.5-5.1) mmol/L Chloride 87 L (98-107) mmol/L Carbon Dioxide 38 H (22-30) mmol/L BUN 50 H (9-20) mg/dL Glucose 149 H (74-99) mg/dL POC Glucose (mg/dL) 264 H (75-99) mg/dL Calcium 8.2 L (8.4-10.2) mg/dL Total Protein 5.1 L (6.3-8.2) g/dL Albumin 2.4 L (3.5-5.0) g/dL 09/07/20 09/07/20 09/07/20 Range/Units 05:32 05:32 07:39 RBC 4.27 L (4.30-5.90) m/uL Hgb 12.1 L (13.0-17.5) gm/dL Hct 37.8 L (39.0-53.0) % PT 15.2 H (9.0-12.0) sec INR 1.5 H (<1.2) Sodium (137-145) mmol/L Potassium (3.5-5.1) mmol/L Chloride (98-107) mmol/L Carbon Dioxide (22-30) mmol/L BUN (9-20) mg/dL Glucose (74-99) mg/dL POC Glucose (mg/dL) 253 H (75-99) mg/dL Calcium (8.4-10.2) mg/dL Total Protein (6.3-8.2) g/dL Albumin (3.5-5.0) g/dL 09/07/20 09/07/20 Range/Units 09:28 11:42 RBC (4.30-5.90) m/uL Hgb (13.0-17.5) gm/dL Hct (39.0-53.0) % PT (9.0-12.0) sec INR (<1.2) Sodium 126 L (137-145) mmol/L Potassium (3.5-5.1) mmol/L Chloride (98-107) mmol/L Carbon Dioxide (22-30) mmol/L BUN (9-20) mg/dL Glucose (74-99) mg/dL POC Glucose (mg/dL) 338 H (75-99) mg/dL Calcium (8.4-10.2) mg/dL Total Protein (6.3-8.2) g/dL Albumin (3.5-5.0) g/dL Microbiology - Last 24 Hours (Table) 09/04/20 16:45 Blood Culture - Preliminary Blood No Growth after 48 hours 09/04/20 16:30 Blood Culture - Preliminary Blood No Growth after 48 hours 09/05/20 08:15 Urine Culture - Final Urine,Catheterized Assessment and Plan Assessment: Community acquired pneumonia Acute hypoxemic respiratory failure Ischemic cardiomyopathy causing Acute on Chronic Heart Failure with reduced ejection fraction, EF 30-35% Lactic acidosis -Admit to inpatient, telemetry -Oxygen when necessary -Ceftriaxone/azithromycin, day 3 -Follow up blood culture = NGTD -Follow up pro-calcitonin = mildly elevated at 0.24, BNP = 2210 -f/u echo, EF 40-45%, elevated RVSP -lasix 40mg PO BID, was held 09/06 Hyponatremia and hypokalemia Acute kidney injury superimposed on CK D stage III -Daily BMP, magnesium; Na q4h -Currently on 3% NS @ 30cc/hr --> d/c'd 09/06 @ 0400 Moderate persistent asthma Permanent atrial fibrillation, rate controlled CAD HTN HLD DM 2 -Home medications reviewed and reconciled -DuoNeb's when necessary, continue home Symbicort, fluticasone, montelukast -Continue Plavix, Coumadin, metoprolol, losartan -Continue home gabapentin, Accu-Cheks every before meals/at bedtime, low-dose sliding scale insulin, 10 units daily of long-acting (on 54 at home) -Continue atorvastatin -Continue home methadone Patient is a full code DVT prophylaxis covered with Coumadin
--- NOTE | 2020-09-07 12:48 | P.PN ---
Subjective Progress Note Date: 09/07/20 Principal diagnosis: Acute hypoxic and hypercapnic respiratory failure possibly drug induced secondary to morphine and methadone. his is a 80-year-old male patient got transferred to the intensive. This morning because of altered mentation, dyspnea, hypoxemia and BiPAP dependent respiratory failure. The patient got admitted yesterday and history of essential limited as the patient was admitted under the care of the hospitalist group for pain to the left ankle and a sprain after a fall. There is no evidence of fracture based on the x-rays. However, in the emergency, the patient was given morphine and altered mental status that occurred on the floor was initially suspected to be related to morphine intake. The patient was given Narcan with suboptimal response. Following that, a blood gas was obtained and it showed a pH of 7.33 with a pCO2 of 71 and pO2 of 115 and this was done and FiO2 of 40%. Based on these results, the patient was started on a BiPAP at a pressure of 12/5 cm of water with an FiO2 of 40% and following that the patient got transferred to the intensive care unit. The chest x-ray that was done overnight showed some atelectatic changes in lung bases bilaterally. No. Airspace disease. No gross signs of congestion heart failure. This patient has no significant leukocytosis. He is afebrile. At this point in time his blood pressure is systolic in the mid 90s. His anticoagulated regarding chronic atrial fibrillation and INR is at 2.8. Creatinine is up to 1.5 with a mean of 56. Sodium level is on down to 121. No seizure activity has been noted. He is quite lethargic yet arousable. He has previous history of CVA and chronic righ t-sided weakness. He is quite debilitated and is at higher risk of falls. He has been hospitalized in the past back in 2017 for staph septicemia. For now, is currently on no pressors. No skin rashes. There is some erythema along the left ankle area related to the recent fall. He has an extensive past medical history. 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 On today's evaluation of 09/06/2020, the patient is awake and oriented. Much more improved compared to yesterday. He is communicating. No altered mentation. He is off the BiPAP. He was on the BiPAP throughout the night yesterday. Note that during the day he was on and off taken off the BiPAP and this morning he is off the BiPAP is currently on oxygen at 2 L per minute nasal cannula. As far as mentation, this is improved. The patient was given 3% hypertonic saline and this was discontinued 4 AM this morning. The sodium level is up to 127. The patient is tolerating a regular diet. Cardiac rhythm remains A. fib. INR is therapeutic for now. Meanwhile, a repeat echocardiogram was done and the patient has a left ventricular ejection fraction 45-50%. RV is moderately dilated. PA pressure estimated to be 35. He remains on a combination of Rocephin and Zithromax. He is on metoprolol for rate control 50 mg by mouth twice a day. He is on Cozaar 25 mg for blood pressure control. The INR is at 2.2. Creatinine is at 63 with a creatinine of 1.5. Patient was reevaluated today on 09/07/2020, patient is on 2 L nasal cannula, O2 saturations 98%, patient is off 3% saline, his sodium today is 126, drifted down from 128, may place the patient on saline at 75 mL per hour. Patient remains on antibiotics in the form of Rocephin and Zithromax, for presumptive pneumonia although his chest x-ray showed mostly atelectasis, cannot rule out infiltrate. Patient is not using BiPAP. He is in atrial fibrillation with a rate of 89. On Coumadin. Patient had an echocardiogram which showed LV dysfunction with ejection fraction of 45-50%. And there is mild pulmonary hypertension. Patient is not using his BiPAP, he is now basically an overflow in the ICU, and the plan is to transfer the patient to [facility]. Pro-calcitonin was 0.24, not impressively elevated. Mentation seems to be improving significantly. Blood sugar is 338 which is likely contributing to his hyponatremia BUN is 50 creatinine is 1.16, hence I will start the patient on IV fluid in the form of 0.9 normal saline at 100 mL per hour. Objective - Vital Signs Vital signs: Vital Signs Temp 98.1 F 09/07/20 08:00 Pulse 80 09/07/20 11:20 Resp 18 09/07/20 08:00 BP 104/51 09/07/20 08:00 Pulse Ox 95 09/07/20 08:00 Intake & Output 09/06/20 09/07/20 09/07/20 18:59 06:59 18:59 Intake Total 300 420 Output Total 1605 900 350 Balance -1305 -480 -350 Intake: IV 120 Sodium Chloride 3%( 120 Hypertonic) 500 ml @ 30 mls/hr IV .[id number] [facility] Rx #:[id number] Intake, IV Titration 100 Amount cefTRIAXone 1 gm In 100 Sodium Chloride 0.9% 50 ml @ 100 mls/hr IVPB Q24H [facility] Rx#:[id number] Oral 200 300 Output: Urine 1605 900 350 Other: Voiding Method Indwelling Catheter Indwelling Catheter Indwelling Catheter - Exam Physical Exam: Revealed a 80-year-old white male, in no distress. Head: Atraumatic, normocephalic. HEENT:[Neck is supple.] [No neck masses.] [No thyromegaly.] [No JVD.], Dry mucous membranes, Chest: [Symmetrical chest expansion, diminished breath sounds at the bases with crackles. Cardiac Exam: Irregular irregular rhythm. [Normal S1 and S2, no S3 gallop, no murmur.] Abdomen: [Soft, nontender, no megaly, no rebound, no guarding, normal bowel sounds.] Extremities: [No clubbing, trace of bipedal edema, no cyanosis.] Neurological Exam: [No focal neurologic deficit.] Alert oriented 3. Psychiatric: Normal mood, affect and normal mental status examination. Skin: No rashes. - Labs CBC & Chem 7: 09/07/20 05:32 09/07/20 09:28 Labs: Abnormal Lab Results - Last 24 Hours (Table) 09/06/20 09/06/20 09/06/20 Range/Units 15:05 16:32 18:52 RBC (4.30-5.90) m/uL Hgb (13.0-17.5) gm/dL Hct (39.0-53.0) % PT (9.0-12.0) sec INR (<1.2) Sodium 127 L 125 L (137-145) mmol/L Potassium (3.5-5.1) mmol/L Chloride (98-107) mmol/L Carbon Dioxide (22-30) mmol/L BUN (9-20) mg/dL Glucose (74-99) mg/dL POC Glucose (mg/dL) 241 H (75-99) mg/dL Calcium (8.4-10.2) mg/dL Total Protein (6.3-8.2) g/dL Albumin (3.5-5.0) g/dL 09/06/20 09/06/20 09/07/20 Range/Units 20:35 23:02 05:32 RBC (4.30-5.90) m/uL Hgb (13.0-17.5) gm/dL Hct (39.0-53.0) % PT (9.0-12.0) sec INR (<1.2) Sodium 124 L 128 L (137-145) mmol/L Potassium 3.4 L (3.5-5.1) mmol/L Chloride 87 L (98-107) mmol/L Carbon Dioxide 38 H (22-30) mmol/L BUN 50 H (9-20) mg/dL Glucose 149 H (74-99) mg/dL POC Glucose (mg/dL) 264 H (75-99) mg/dL Calcium 8.2 L (8.4-10.2) mg/dL Total Protein 5.1 L (6.3-8.2) g/dL Albumin 2.4 L (3.5-5.0) g/dL 09/07/20 09/07/20 09/07/20 Range/Units 05:32 05:32 07:39 RBC 4.27 L (4.30-5.90) m/uL Hgb 12.1 L (13.0-17.5) gm/dL Hct 37.8 L (39.0-53.0) % PT 15.2 H (9.0-12.0) sec INR 1.5 H (<1.2) Sodium (137-145) mmol/L Potassium (3.5-5.1) mmol/L Chloride (98-107) mmol/L Carbon Dioxide (22-30) mmol/L BUN (9-20) mg/dL Glucose (74-99) mg/dL POC Glucose (mg/dL) 253 H (75-99) mg/dL Calcium (8.4-10.2) mg/dL Total Protein (6.3-8.2) g/dL Albumin (3.5-5.0) g/dL 09/07/20 09/07/20 Range/Units 09:28 11:42 RBC (4.30-5.90) m/uL Hgb (13.0-17.5) gm/dL Hct (39.0-53.0) % PT (9.0-12.0) sec INR (<1.2) Sodium 126 L (137-145) mmol/L Potassium (3.5-5.1) mmol/L Chloride (98-107) mmol/L Carbon Dioxide (22-30) mmol/L BUN (9-20) mg/dL Glucose (74-99) mg/dL POC Glucose (mg/dL) 338 H (75-99) mg/dL Calcium (8.4-10.2) mg/dL Total Protein (6.3-8.2) g/dL Albumin (3.5-5.0) g/dL Microbiology - Last 24 Hours (Table) 09/04/20 16:45 Blood Culture - Preliminary Blood No Growth after 48 hours 09/04/20 16:30 Blood Culture - Preliminary Blood No Growth after 48 hours 09/05/20 08:15 Urine Culture - Final Urine,Catheterized Assessment and Plan Assessment: Impression: Acute hypoxic/hypercapnic respiratory failure, exact etiology is unclear but most likely secondary to narcotics and methadone. Significantly improved. History of COPD, inactive at present. Chronic atrial fibrillation. Hypovolemic hyponatremia, clinically the patient needs more fluid improved with 3% saline, however I plan to start the patient on 0.9 normal saline at 100 mL per hour. Hyponatremia could also be secondary to /pseudohyponatremia Coronary artery disease and previous stent placement. History of CVA and right-sided weakness Ischemic cardiomyopathy and LV dysfunction and ejection fraction of 45% Type 2 diabetes. Benign essential hypertension Chronic pain syndrome Benign prostatic hypertrophy and previous TURP Remote smoking history History of streptococcal sepsis back in 2018. Dyslipidemia. History of depression Chronic gait dysfunction Recommendation: Will recommend transferring the patient out of the ICU to a regular medical floor. Avoid narcotics and sedatives. IV fluid 0.9 normal saline and discontinue 3% saline. Address the hyperglycemia and insulin as per protocol. Continue antibiotics empirically. Continue to monitor sodium. Advanced diet as tolerated. Continue Coumadin and maintain INR between 2 and 3. We'll continue to follow. Time with Patient: Less than 30
[2020-09-07] MEDS ORDERED: INSULIN DETEMIR (LEVEMIR) 100 UNIT/ML SYR SQ ONE (13:00)
[2020-09-07] MEDS: SODIUM CHLORIDE TAB 1 GM TAB PO SCH ×2 (13:19→21:14)
[2020-09-07] MEDS: SODIUM CHLORIDE 0.9% 1,000 ML IV SCH (14:07)
[2020-09-07 16:40] LABS: Glucose,Whole Blood 192 mg/dL (75-99)
[2020-09-07] MEDS: AZITHROMYCIN 500 MG TAB PO SCH (16:44)
[2020-09-07] MEDS: WARFARIN 2 MG TAB PO SCH (16:47)
[2020-09-07 21:01] LABS: Glucose,Whole Blood 193 mg/dL (75-99)
[2020-09-07] MEDS: MONTELUKAST 10 MG TAB PO SCH (21:11)
[2020-09-07] MEDS: MELATONIN 3 MG TABLET PO SCH (21:11)
[2020-09-08] MEDS: SODIUM CHLORIDE 0.9% 1,000 ML IV SCH ×2 (01:08→08:45)
[2020-09-08 04:55] LABS: HCT 34.4 % (39.0-53.0); HGB 12.1 gm/dL (13.0-17.5); MCH 31.1 pg (25.0-35.0); MCHC 35.3 g/dL (31.0-37.0); MCV 88.1 fL (80.0-100.0); Mean Platelet Volume 8.1; Platelet Count 203 k/uL (150-450); RDW 12.9 % (11.5-15.5); WBC 7.4 k/uL (3.8-10.6)
[2020-09-08 05:05] LABS: Calcium 8.1 mg/dL (8.4-10.2); Potassium 3.8 mmol/L (3.5-5.1)
[2020-09-08 05:09] LABS: INR 1.6 (<1.2); Prothrombin Time 15.7 sec (9.0-12.0)
[2020-09-08 07:12] LABS: Glucose,Whole Blood 192 mg/dL (75-99)
[2020-09-08] MEDS: INSULIN DETEMIR (LEVEMIR) 100 UNIT/ML SYR SQ SCH (07:12)
[2020-09-08] MEDS: INSULIN ASPART (NovoLOG) 100 UNIT/ML VIAL SQ SCH ×4 (07:12→21:44)
[2020-09-08] MEDS: IPRATROPIUM-ALBUTEROL 3 ML NEB INHALATION SCH ×4 (07:49→20:46)
[2020-09-08] MEDS: SENNOSIDES-DOCUSATE SODIUM 1 EACH TAB PO SCH ×2 (08:43→21:43)
[2020-09-08] MEDS: SODIUM CHLORIDE TAB 1 GM TAB PO SCH (08:43)
[2020-09-08] MEDS: LOSARTAN 25 MG TAB PO SCH (08:43)
[2020-09-08] MEDS: CLOPIDOGREL 75 MG TAB PO SCH (08:44)
[2020-09-08] MEDS: METHADONE 5 MG TAB PO SCH ×3 (08:44→21:43)
[2020-09-08] MEDS: FLUTICASONE 50MCG/SPRAY NASAL 16GM EA NOSTRIL SCH (08:44)
[2020-09-08] MEDS: GABAPENTIN 100 MG CAP PO SCH ×3 (08:44→21:43)
[2020-09-08] MEDS: SERTRALINE 100 MG TAB PO SCH (08:44)
[2020-09-08] MEDS: METOPROLOL TARTRATE 50 MG TAB PO SCH ×2 (08:44→21:43)
[2020-09-08] MEDS: PANTOPRAZOLE 40 MG/10 ML VIAL IVP SCH (08:44)
[2020-09-08] MEDS: ATORVASTATIN 40 MG TAB PO SCH (08:44)
--- NOTE | 2020-09-08 09:04 | XR ---
Limited right hip HISTORY: Pain Single frontal view of the right hip Comparison to prior exam 08/20/2017 There is no significant interval change. Bone mineralization is reduced. Alignment and joint spaces a re stable. IMPRESSION: Limited single view. No acute fracture or dislocation is evident. Follow-up as indicated.
--- NOTE | 2020-09-08 09:06 | XR ---
EXAMINATION TYPE: XR chest 1V portable DATE OF EXAM: 09/08/2020 COMPARISON: Chest x-ray 09/05/2020 HISTORY: Dyspnea TECHNIQUE: Single frontal view of the chest is obtained. FINDINGS: There is no pleural effusion or pneumothorax seen. Minimal patchy density present at the l unique bases. Left jugular central venous catheter shows the distal tip overlying superior vena cava. Ao rta is dense. The cardiac silhouette size is stable. The osseous structures are intact. IMPRESSION: Basilar atelectasis, pneumonia not excluded.
--- NOTE | 2020-09-08 11:25 | P.PN ---
Subjective Progress Note Date: 09/08/20 Principal diagnosis: Acute hypoxic and hypercapnic respiratory failure possibly drug induced secondary to morphine and methadone. his is a 80-year-old male patient got transferred to the intensive. This morning because of altered mentation, dyspnea, hypoxemia and BiPAP dependent respiratory failure. The patient got admitted yesterday and history of essential limited as the patient was admitted under the care of the hospitalist group for pain to the left ankle and a sprain after a fall. There is no evidence of fracture based on the x-rays. However, in the emergency, the patient was given morphine and altered mental status that occurred on the floor was initially suspected to be related to morphine intake. The patient was given Narcan with suboptimal response. Following that, a blood gas was obtained and it showed a pH of 7.33 with a pCO2 of 71 and pO2 of 115 and this was done and FiO2 of 40%. Based on these results, the patient was started on a BiPAP at a pressure of 12/5 cm of water with an FiO2 of 40% and following that the patient got transferred to the intensive care unit. The chest x-ray that was done overnight showed some atelectatic changes in lung bases bilaterally. No. Airspace disease. No gross signs of congestion heart failure. This patient has no significant leukocytosis. He is afebrile. At this point in time his blood pressure is systolic in the mid 90s. His anticoagulated regarding chronic atrial fibrillation and INR is at 2.8. Creatinine is up to 1.5 with a mean of 56. Sodium level is on down to 121. No seizure activity has been noted. He is quite lethargic yet arousable. He has previous history of CVA and chronic righ t-sided weakness. He is quite debilitated and is at higher risk of falls. He has been hospitalized in the past back in 2017 for staph septicemia. For now, is currently on no pressors. No skin rashes. There is some erythema along the left ankle area related to the recent fall. He has an extensive past medical history. 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 On today's evaluation of 09/06/2020, the patient is awake and oriented. Much more improved compared to yesterday. He is communicating. No altered mentation. He is off the BiPAP. He was on the BiPAP throughout the night yesterday. Note that during the day he was on and off taken off the BiPAP and this morning he is off the BiPAP is currently on oxygen at 2 L per minute nasal cannula. As far as mentation, this is improved. The patient was given 3% hypertonic saline and this was discontinued 4 AM this morning. The sodium level is up to 127. The patient is tolerating a regular diet. Cardiac rhythm remains A. fib. INR is therapeutic for now. Meanwhile, a repeat echocardiogram was done and the patient has a left ventricular ejection fraction 45-50%. RV is moderately dilated. PA pressure estimated to be 35. He remains on a combination of Rocephin and Zithromax. He is on metoprolol for rate control 50 mg by mouth twice a day. He is on Cozaar 25 mg for blood pressure control. The INR is at 2.2. Creatinine is at 63 with a creatinine of 1.5. Patient was reevaluated today on 09/07/2020, patient is on 2 L nasal cannula, O2 saturations 98%, patient is off 3% saline, his sodium today is 126, drifted down from 128, may place the patient on saline at 75 mL per hour. Patient remains on antibiotics in the form of Rocephin and Zithromax, for presumptive pneumonia although his chest x-ray showed mostly atelectasis, cannot rule out infiltrate. Patient is not using BiPAP. He is in atrial fibrillation with a rate of 89. On Coumadin. Patient had an echocardiogram which showed LV dysfunction with ejection fraction of 45-50%. And there is mild pulmonary hypertension. Patient is not using his BiPAP, he is now basically an overflow in the ICU, and the plan is to transfer the patient to [facility]. Pro-calcitonin was 0.24, not impressively elevated. Mentation seems to be improving significantly. Blood sugar is 338 which is likely contributing to his hyponatremia BUN is 50 creatinine is 1.16, hence I will start the patient on IV fluid in the form of 0.9 normal saline at 100 mL per hour. Patient was reevaluated today on 09/08/2020, patient remains in the ICU as an overflow, remains on oxygen at 2 L via nasal cannula with O2 sats of 95%. Patient is in atrial fibrillation with controlled rate to 96/m. He is relatively asymptomatic except for complaining of pain in the right hip secondary to recent fall. Hence I have recommended x-rays of the hip. Apparently when he came into the ER he was complaining of knee pain and x-rays of the left knee were done at the time. He also had CT of the cervical spine for assessment of his recent fall. No other in the chart there was a mention of any right hip pain but today he seems to be complaining mostly of right hip p ain. X-rays of the hip today showed no acute fracture or dislocation. CBC is relatively normal sodium is 128, holding. BUN is 50 creatinine 1.15, improving, chest x-ray showed basilar atelectasis. Objective - Vital Signs Vital signs: Vital Signs Temp 98.3 F 09/08/20 08:00 Pulse 93 09/08/20 08:05 Resp 12 09/08/20 08:00 BP 103/68 09/08/20 08:00 Pulse Ox 95 09/08/20 08:00 Intake & Output 09/07/20 09/08/20 09/08/20 18:59 06:59 18:59 Intake Total 50 300 Output Total 1850 700 Balance -1800 -400 Intake: IV 50 cefTRIAXone 1 gm In 50 Sodium Chloride 0.9% 50 ml @ 100 mls/hr IVPB Q24H [facility] Rx#:[id number] Oral 300 Output: Urine 1850 700 Other: Voiding Method Indwelling Catheter Indwelling Catheter Indwelling Catheter - Exam Physical Exam: Revealed a 80-year-old white male, in no distress. On 2 L nasal cannula, O2 saturations 95%. Head: Atraumatic, normocephalic. HEENT:[Neck is supple.] [No neck masses.] [No thyromegaly.] [No JVD.], Dry mucous membranes, Chest: [Symmetrical chest expansion, diminished breath sounds at the bases with crackles. Cardiac Exam: Irregular irregular rhythm. [Normal S1 and S2, no S3 gallop, no murmur.] Abdomen: [Soft, nontender, no megaly, no rebound, no guarding, normal bowel sounds.] Extremities: [No clubbing, trace of bipedal edema, no cyanosis.] Limited range of motion of the right hip is noted. Neurological Exam: [No focal neurologic deficit.] Alert oriented 3. Psychiatric: Normal mood, affect and normal mental status examination. Skin: No rashes. - Labs CBC & Chem 7: 09/08/20 04:35 09/08/20 04:35 Labs: Abnormal Lab Results - Last 24 Hours (Table) 09/07/20 09/07/20 09/07/20 Range/Units 11:42 16:36 18:00 RBC (4.30-5.90) m/uL Hgb (13.0-17.5) gm/dL Hct (39.0-53.0) % PT (9.0-12.0) sec INR (<1.2) Sodium 128 L (137-145) mmol/L Chloride (98-107) mmol/L Carbon Dioxide (22-30) mmol/L BUN (9-20) mg/dL Glucose (74-99) mg/dL POC Glucose (mg/dL) 338 H 192 H (75-99) mg/dL Calcium (8.4-10.2) mg/dL 09/07/20 09/07/20 09/08/20 Range/Units 21:00 23:30 04:35 RBC (4.30-5.90) m/uL Hgb (13.0-17.5) gm/dL Hct (39.0-53.0) % PT 15.7 H (9.0-12.0) sec INR 1.6 H (<1.2) Sodium 128 L (137-145) mmol/L Chloride (98-107) mmol/L Carbon Dioxide (22-30) mmol/L BUN (9-20) mg/dL Glucose (74-99) mg/dL POC Glucose (mg/dL) 193 H (75-99) mg/dL Calcium (8.4-10.2) mg/dL 09/08/20 09/08/20 09/08/20 Range/Units 04:35 04:35 07:10 RBC 3.90 L (4.30-5.90) m/uL Hgb 12.1 L (13.0-17.5) gm/dL Hct 34.4 L (39.0-53.0) % PT (9.0-12.0) sec INR (<1.2) Sodium 128 L (137-145) mmol/L Chloride 87 L (98-107) mmol/L Carbon Dioxide 37 H (22-30) mmol/L BUN 50 H (9-20) mg/dL Glucose 195 H (74-99) mg/dL POC Glucose (mg/dL) 192 H (75-99) mg/dL Calcium 8.1 L (8.4-10.2) mg/dL Microbiology - Last 24 Hours (Table) 09/04/20 16:30 Blood Culture - Preliminary Blood No Growth after 72 hours 09/04/20 16:45 Blood Culture - Preliminary Blood No Growth after 72 hours Assessment and Plan Assessment: Impression: Acute hypoxic/hypercapnic respiratory failure, exact etiology is unclear but most likely secondary to narcotics and methadone. Significantly improved. History of COPD, inactive at present. Chronic atrial fibrillation. Hypovolemic hyponatremia, clinically the patient needs more fluid improved with 3% saline, however I plan to start the patient on 0.9 normal saline at 100 mL per hour. Hyponatremia could also be secondary to /pseudohyponatremia Coronary artery disease and previous stent placement. History of CVA and right-sided weakness Ischemic cardiomyopathy and LV dysfunction and ejection fraction of 45% Type 2 diabetes. Benign essential hypertension Chronic pain syndrome Benign prostatic hypertrophy and previous TURP Remote smoking history History of streptococcal sepsis back in 2018. Dyslipidemia. History of depression Chronic gait dysfunction Right hip pain and limited range of motion however x-rays of the hip are negativ e. No fracture Recommendation: X-rays of the right hip were ordered. Transfer patient out of the ICU to regular medical floor. Consider discharge planning if cleared by other consultants and by admitting physician. Continue to monitor sodium. Continue IV fluids at 0.9 normal saline 100 mL per hour. Cleared from our perspective for discharge planning. Advanced diet as tolerated. Continue Coumadin and maintain INR between 2 and 3. Time with Patient: Less than 30
[2020-09-08 11:40] LABS: Glucose,Whole Blood 352 mg/dL (75-99)
[2020-09-08] MEDS: bisacodyL 5 MG TABLET.DR PO PRN (12:21)
--- NOTE | 2020-09-08 13:06 | P.PN ---
Subjective Progress Note Date: 09/08/20 Patient was seen and evaluated by me today. He is awake and alert. He does not have any complaints. He is feeling generally weak. No acute events overnight reported by nursing staff. Today, is day #5 of antibiotic with azithromycin and ceftriaxone. Objective - Vital Signs Vital signs: Vital Signs Temp 98.3 F 09/08/20 08:00 Pulse 78 09/08/20 11:36 Resp 12 09/08/20 08:00 BP 103/68 09/08/20 08:00 Pulse Ox 95 09/08/20 08:00 Intake & Output 09/07/20 09/08/20 09/08/20 18:59 06:59 18:59 Intake Total 50 300 Output Total 1850 700 Balance -1800 -400 Intake: IV 50 cefTRIAXone 1 gm In 50 Sodium Chloride 0.9% 50 ml @ 100 mls/hr IVPB Q24H [facility] Rx#:[id number] Oral 300 Output: Urine 1850 700 Other: Voiding Method Indwelling Catheter Indwelling Catheter Indwelling Catheter - Exam General: The patient is awake and alert, in no distress Eye: there is normal conjunctiva bilaterally. Neck: The neck is supple, there is no JVD. Cardiovascular: Normal S1-S2, no S3-S4, no murmurs. Respiratory: Lungs clear to auscultation bilaterally Gastrointestinal: Abdomen is soft, nontender Musculoskeletal: There is no pedal edema. Neurological:. Speech is normal. Skin: Skin is warm and dry - Labs CBC & Chem 7: 09/08/20 04:35 09/08/20 04:35 Labs: Abnormal Lab Results - Last 24 Hours (Table) 09/07/20 09/07/20 09/07/20 Range/Units 16:36 18:00 21:00 RBC (4.30-5.90) m/uL Hgb (13.0-17.5) gm/dL Hct (39.0-53.0) % PT (9.0-12.0) sec INR (<1.2) Sodium 128 L (137-145) mmol/L Chloride (98-107) mmol/L Carbon Dioxide (22-30) mmol/L BUN (9-20) mg/dL Glucose (74-99) mg/dL POC Glucose (mg/dL) 192 H 193 H (75-99) mg/dL Calcium (8.4-10.2) mg/dL 09/07/20 09/08/20 09/08/20 Range/Units 23:30 04:35 04:35 RBC 3.90 L (4.30-5.90) m/uL Hgb 12.1 L (13.0-17.5) gm/dL Hct 34.4 L (39.0-53.0) % PT 15.7 H (9.0-12.0) sec INR 1.6 H (<1.2) Sodium 128 L (137-145) mmol/L Chloride (98-107) mmol/L Carbon Dioxide (22-30) mmol/L BUN (9-20) mg/dL Glucose (74-99) mg/dL POC Glucose (mg/dL) (75-99) mg/dL Calcium (8.4-10.2) mg/dL 09/08/20 09/08/20 09/08/20 Range/Units 04:35 07:10 11:38 RBC (4.30-5.90) m/uL Hgb (13.0-17.5) gm/dL Hct (39.0-53.0) % PT (9.0-12.0) sec INR (<1.2) Sodium 128 L (137-145) mmol/L Chloride 87 L (98-107) mmol/L Carbon Dioxide 37 H (22-30) mmol/L BUN 50 H (9-20) mg/dL Glucose 195 H (74-99) mg/dL POC Glucose (mg/dL) 192 H 352 H (75-99) mg/dL Calcium 8.1 L (8.4-10.2) mg/dL Microbiology - Last 24 Hours (Table) 09/04/20 16:30 Blood Culture - Preliminary Blood No Growth after 72 hours 09/04/20 16:45 Blood Culture - Preliminary Blood No Growth after 72 hours Assessment and Plan Assessment: This is a 80-year-old female with past medical history noted below who presented to the emergency room after he sustained a fall at a [facility]. He was admitted to the hospital and evaluated for further management of his medical problems noted below. Community acquired pneumonia: Patient finished 5 days course of antibiotic with azithromycin and ceftriaxone. Blood culture negative to date. Acute and hypercapnic respiratory failure: Requiring BiPAP during this admission. Overall condition improved. Patient was seen and evaluated by pulmonology. He is currently on 2 L of oxygen via nasal cannula. Ischemic cardiomyopathy causing Acute on Chronic Heart Failure with reduced ejection fraction, EF 30-35% Hyponatremia and hypokalemia Acute kidney injury superimposed on CK D stage III -Patient received hypertonic saline during this admission. He is currently getting gentle IV fluid hydration. Sodium level is stable. Moderate persistent asthma Permanent atrial fibrillation, rate controlled CAD HTN HLD DM 2 Chronic obstructive uropathy, usually self catheterizing at home with the help of his . Irwin catheter inserted for now -Home medications reviewed and reconciled -DuoNeb's when necessary, continue home Symbicort, fluticasone, montelukast -Continue Plavix, Coumadin, metoprolol, losartan -Continue home gabapentin, Accu-Cheks every before meals/at bedtime, low-dose sliding scale insulin, 10 units daily of long-acting (on 54 at home) -Continue atorvastatin -Continue home methadone Today, I reviewed his medication list and lab work results. PTOT evaluation. Plan to discharge to subacute rehab tomorrow
--- NOTE | 2020-09-08 14:13 | CDI ---
Documentation Clarification Form Date: 09/08/2020 01:11:27 PM From: Kaylee Marina RN CCDS Admit Date: 09/04/2020 04:28:00 PM Patient Name: Travis Flores Visit Number: [id number] Discharge Date: ATTENTION: The Clinical Documentation Specialists (CDI) and [facility] Coding Staff appreciate your assistance in clarifying documentation. Please respond to the clarification below the line at the bottom and electronically sign. The CDI & [facility] Coding staff will review the response and follow-up if needed. Please note: Queries are made part of the Legal Health Record. If you have any questions, please contact the author of this message via ITS. Dr. Callum Peterson Your patient has the documented symptom of Altered Mental Status 09/05, Pulmonary consult and 09/06 09/08 Pulmonary progress notes. Additional clarification regarding the etiology/cause of this symptom is requested. History/Risk Factors: 80-year-old male presents to the ED for left ankle swelling. The patients SpO2 was 76% requiring 4L nasal cannula. Medical history: recently completed prednisone and doxycycline for upper respiratory symptoms. Moderate persistent asthma and CHF. Clinical Indicators: Labs: 09/04 23:54 blood gasses: PH 7.33; pCO2 71; pO2 115; HCO 37; Total CO2 39; O2 Saturation 99.1. VSS: 09/04 19:16 B/P 105/61; HR 89; Temp 98.0 F Oral; RR 16; SpO2 94% 2L Nasal canula. VSS: 09/05 02:03 B/P 101/57; HR 86; Temp 101.4 F Axillary; RR 14 SpO2 97% Bipap A Team Note 22:32 The patient was admitted tonight for community acquired pneumnia and respiratory failure was found to be unresponsive. He received morphine 2mg IV push in the emergency room. Narcan IVP was administered prior to my arrival at the scene, with which the patient immediately regained consciousness. At the time of interview, the patient was awake but not answering any questions or following any commands. The patient was noted to be hypoxic and was placed on a non-rebreather mask [id number] oxygen per minute with SpO2 95%. CXR: 09/04 Mild increased density right lower lobe may reflect developing infiltrate. CT Brain: 09/04 Age related atrophic and chronic small vessel ischemic change without acute intracranial process seen at this time. Treatment: 09/04 Narcan 0.2mg x 1. 09/04 Non-Rebreather. Please clarify the etiology of the symptom of Altered Mental Status: [ ] Metabolic Encephalopathy due to Medication [ ] Metabolic Encephalopathy due to Hypoxic/ Hypercapnic Respiratory Failure. [ ] Metabolic Encephalopathy due to Medication and Respiratory Failure. [ ] Other condition (please specify) [ ] Unable to determine (Template Last Revised: March 2020) MTDD
--- NOTE | 2020-09-08 14:45 | CONS ---
CONSULTATION REASON FOR CONSULT: Hyponatremia. HISTORY OF PRESENT ILLNESS: Patient is a 80-year-old male who was admitted to the hospital on 09/04/2020 with history of pain in his ankle and he also had shortness of breath for which he received prednisone and doxycycline as outpatient. However, this did not improve and he was brought into the hospital. He was hypoxic and was treated for pneumonia. The patient was found to be hyponatremic. His serum sodium was 121 and it appears that he has been on 3% saline on and off. Blood pressure appears to have been on the lower side with systolic as low as 83 mmHg on 09/05/2020. It looks like patient did receive IV fluid bolus and his sodium may have decreased. Following that, he was started on 3% saline. Urine osmolality is not available. Yesterday, the 3% saline was discontinued and I started the patient on sodium chloride tabs. His sodium is up to 128 now. The patient denies any chest pains or shortness of breath. He is currently awake. He has no other symptoms of numbness, tingling, or weakness. PAST MEDICAL HISTORY: Significant for chronic atrial fibrillation, asthma, coronary artery disease, CHF, CVA, TIA, type 2 diabetes, fibromyalgia, gastroesophageal reflux disease, hyperlipidemia, hypertension, osteoarthritis, pneumonia, history of CVA with right-sided weakness, glaucoma, chronic back pain and insomnia. PAST SURGICAL HISTORY: Back surgery, cardiac catheterization, cardioversion, polypectomy, colonoscopy, TURP, bilateral hydrocelectomy, coronary stent, iliac stent, laminectomy, cataract surgery. SOCIAL HISTORY: Negative for smoking, drug abuse or alcohol abuse. MEDICATIONS: Medications prior to admission included magnesium oxide, Singulair, Nitrostat, Zoloft, melatonin, Lopressor, Lipitor, Cozaar, Plavix, insulin, Lasix, Neurontin, Prilosec, Coumadin, Zaroxolyn, Desyrel. ALLERGIES: INCLUDE SULFA WHICH CAUSES RASH AND HIVES. REVIEW OF SYSTEMS: As per HPI. Other systems negative. EXAMINATION: Comfortable, awake, alert, oriented x3, not in any acute distress. Blood pressure is 103/68, heart rate 89 per minute. He is afebrile. Examination of the heart S1, S2. Examination lungs bilateral breath sounds are heard. Heart sounds are heard. Abdomen is soft, nontender. Examination of lower extremities shows no evidence of edema. 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 LAB: Show sodium 128, potassium 3.8, chloride 87, BUN 50, serum creatinine 1.15, hemoglobin 12.1. ASSESSMENT: 1. Hyponatremia appears to be hypovolemic however it seems that sodium had worsened previously with saline administration, which goes along with diagnosis of SIADH. Unfortunately, I do not have urine osmolality available. Patient's blood pressure has been on the lower side. Therefore, he was started on sodium chloride tabs and he has improved with sodium up to 128 now. The patient is also encouraged to increase oral protein intake. I will decrease the sodium chloride tabs to once a day and he should have labs done as outpatient to monitor the sodium level. Check urine osmolality today prior to discharge. The cortisol level was checked and it was at 9. 2. Pneumonia, community-acquired pneumonia maintained on antibiotics. 3. History of cardiomyopathy, ejection fraction 30-35 percent. 4. Chronic atrial fibrillation with controlled rate. 5. Acute kidney injury, prerenal currently improved mostly associated with hypotension. This has improved with improved blood pressure. The patient is voiding well. His UA shows blood 3+, no protein. An ultrasound of the kidneys has not been done and this can be checked as outpatient. PLAN: Decrease sodium chloride tabs to once a day. Check urine osmolality. Check ultrasound of the kidneys as outpatient. Patient will need followup as outpatient in about one week's time post discharge. SNEHAL / CIRON: [id number] /
[2020-09-08 16:59] LABS: Glucose,Whole Blood 275 mg/dL (75-99)
[2020-09-08] MEDS ORDERED: WARFARIN 2 MG TAB PO ONE (18:00)
[2020-09-08 20:48] LABS: Glucose,Whole Blood 337 mg/dL (75-99)
[2020-09-08] MEDS: MONTELUKAST 10 MG TAB PO SCH (21:43)
[2020-09-08] MEDS: MELATONIN 3 MG TABLET PO SCH (21:44)
[2020-09-09 06:52] LABS: Glucose,Whole Blood 224 mg/dL (75-99)
[2020-09-09] MEDS: METOPROLOL TARTRATE 50 MG TAB PO SCH ×2 (08:28→20:22)
[2020-09-09] MEDS: SENNOSIDES-DOCUSATE SODIUM 1 EACH TAB PO SCH ×2 (08:28→20:23)
[2020-09-09] MEDS: HYDROcodone/APAP 5-325MG 1 EACH TAB PO PRN (08:29)
[2020-09-09] MEDS: INSULIN DETEMIR (LEVEMIR) 100 UNIT/ML SYR SQ SCH (08:29)
[2020-09-09] MEDS: ATORVASTATIN 40 MG TAB PO SCH (08:29)
[2020-09-09] MEDS: LOSARTAN 25 MG TAB PO SCH (08:29)
[2020-09-09] MEDS: CLOPIDOGREL 75 MG TAB PO SCH (08:29)
[2020-09-09] MEDS: SODIUM CHLORIDE TAB 1 GM TAB PO SCH (08:29)
[2020-09-09] MEDS: SERTRALINE 100 MG TAB PO SCH (08:30)
[2020-09-09] MEDS: INSULIN ASPART (NovoLOG) 100 UNIT/ML VIAL SQ SCH ×4 (08:30→20:24)
[2020-09-09] MEDS: METHADONE 5 MG TAB PO SCH ×3 (08:30→20:22)
[2020-09-09] MEDS: WARFARIN 2 MG TAB PO SCH (08:30)
[2020-09-09] MEDS: bisacodyL 5 MG TABLET.DR PO PRN (08:35)
[2020-09-09] MEDS: GABAPENTIN 100 MG CAP PO SCH ×3 (08:35→20:22)
[2020-09-09] MEDS: FLUTICASONE 50MCG/SPRAY NASAL 16GM EA NOSTRIL SCH (08:35)
[2020-09-09] MEDS: IPRATROPIUM-ALBUTEROL 3 ML NEB INHALATION SCH ×4 (08:53→19:43)
[2020-09-09 09:01] LABS: INR 1.4 (<1.2); Prothrombin Time 14.3 sec (9.0-12.0)
[2020-09-09 09:40] LABS: African American GFR (CKD) 90 (>60 ml/min/1.73 sqM); Anion Gap 2 mmol/L; Blood Urea Nitrogen 44 mg/dL (9-20); Calcium 8.5 mg/dL (8.4-10.2); Carbon Dioxide 37 mmol/L (22-30); Chloride 89 mmol/L (98-107); Glucose 216 mg/dL (74-99); Non-African American GFR(CKD) 78 (>60 ml/min/1.73 sqM); Potassium 4.2 mmol/L (3.5-5.1); Sodium 128 mmol/L (137-145)
[2020-09-09] MEDS ORDERED: WARFARIN 2 MG TAB PO ONE (10:00)
[2020-09-09] MEDS ORDERED: FUROSEMIDE 10 MG/ML 4 ML VIAL IV STA (11:13)
[2020-09-09 11:51] LABS: Glucose,Whole Blood 309 mg/dL (75-99)
--- NOTE | 2020-09-09 12:02 | PN ---
PROGRESS NOTE HISTORY: Patient is seen for followup for hyponatremia. Patient's serum sodium has been staying at 1:28 am. He is currently not on any IV fluids. He is maintained on sodium chloride tabs and the dose was decreased to b.i.d. The urine osmolality was ordered, but I do not see it back yet. Blood pressure has been on the lower side. Random cortisol level was 9. Currently, patient has had some oral intake, I do not believe he is eating well. PHYSICAL EXAMINATION: On examination today, patient is sleeping he is arousable. He is not in any acute distress. Blood pressure is 109/69, heart rate 78 per minute, he is afebrile examination of the heart S1, S2. Examination of the lungs, bilateral breath sounds are heard. Abdomen is soft, nontender. Examination lower extremities shows no significant edema. MECHANICS SUPERVISOR exam is grossly intact. The patient is sleepy but arousable. LABS: Sodium 128, potassium 4.2, chloride 89. CO2 of 37, BUN 44, creatinine 0.94. ASSESSMENT: 1. Hyponatremia, currently euvolemic, possibly hypovolemic on initial admission. Given the drop in serum sodium with saline administration, SIADH is a consideration, however, urine osmolality is not reported yet. The sodium chloride tabs were decreased yesterday. His serum sodium is staying at 1:28 am. Serum cortisol level was low at 9. I will check a cosyntropin stimulation test to rule out adrenal insufficiency. In the meantime sodium chloride tabs will be increased to b.i.d. again. 2. Pneumonia, community-acquired, maintained on antibiotics. 3. History of cardiomyopathy, ejection fraction 30 to 35 percent. 4. Chronic atrial fibrillation. 5. Acute kidney injury, mostly associated with hypotension, improved with improving blood pressure, currently voiding well. PLAN: Follow up on urine osmolality. Check cosyntropin stimulation test. Continue with the sodium chloride tabs for now but we need to be careful, given his history of congestive heart failure and cardiomyopathy. The last chest x-ray from yesterday shows bibasilar atelectasis. No pleural effusions were noted. The patient is also encouraged to increase oral intake of protein. MMODL / IJN: [id number] /
[2020-09-09] MEDS: PANTOPRAZOLE 40 MG TABLET PO SCH (12:07)
--- NOTE | 2020-09-09 12:26 | XR ---
EXAMINATION TYPE: XR chest 1V portable DATE OF EXAM: 09/09/2020 HISTORY: Shortness of breath. COMPARISON: 09/08/2020 TECHNIQUE: Single view of the chest is submitted. FINDINGS: Demonstrated are scattered senescent parenchymal change. Strandy density right midlung zone. Left basilar atelectasis and/or infiltrate unchanged. No evidence for overt failure. The heart is stable. Hilar and mediastinal structures are within normal limits. Degenerative changes are seen of the dorsal spine. IMPRESSION: 1. Strandy density right midlung zone. Left basilar atelectasis and/or infiltrate unchanged. No evid ence for overt failure.
[2020-09-09] MEDS ORDERED: COSYNTROPIN 0.25 MG VIAL IVP ONE (13:00)
--- NOTE | 2020-09-09 13:28 | P.PN ---
Subjective Progress Note Date: 09/09/20 Principal diagnosis: Acute metabolic encephalopathy Acute hypoxic and hypercapnic respiratory failure possibly drug induced secondary to morphine and methadone. his is a 80-year-old male patient got transferred to the intensive. This morning because of altered mentation, dyspnea, hypoxemia and BiPAP dependent respiratory failure. The patient got admitted yesterday and history of essential limited as the patient was admitted under the care of the hospitalist group for pain to the left ankle and a sprain after a fall. There is no evidence of fracture based on the x-rays. However, in the emergency, the patient was given morphine and altered mental status that occurred on the floor was initially suspected to be related to morphine intake. The patient was given Narcan with suboptimal response. Following that, a blood gas was obtained and it showed a pH of 7.33 with a pCO2 of 71 and pO2 of 115 and this was done and FiO2 of 40%. Based on these results, the patient was started on a BiPAP at a pressure of 12/5 cm of water with an FiO2 of 40% and following that the patient got transferred to the intensive care unit. The chest x-ray that was done overnight showed some atelectatic changes in lung bases bilaterally. No. Airspace disease. No gross signs of congestion heart failure. This patient has no significant leukocytosis. He is afebrile. At this point in time his blood pressure is systolic in the mid 90s. His anticoagulated regarding chronic atrial fibrillation and INR is at 2.8. Creatinine is up to 1.5 with a mean of 56. Sodium level is on down to 121. No seizure activity has been noted. He is quite lethargic yet arousable. He has previous history of CVA and chronic right-sided weakness. He is quite debilitated and is at higher risk of falls. He has been hospitalized in the past back in 2017 for staph septicemia. For now, is currently on no pressors. No skin rashes. There is some erythema along the left ankle area related to the recent fall. He has an extensive past medical history. 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 On today's evaluation of 09/06/2020, the patient is awake and oriented. Much more improved compared to yesterday. He is communicating. No altered mentation. He is off the BiPAP. He was on the BiPAP throughout the night yesterday. Note that during the day he was on and off taken off the BiPAP and this morning he is off the BiPAP is currently on oxygen at 2 L per minute nasal cannula. As far as mentation, this is improved. The patient was given 3% hypertonic saline and this was discontinued 4 AM this morning. The sodium level is up to 127. The patient is tolerating a regular diet. Cardiac rhythm remains A. fib. INR is therapeutic for now. Meanwhile, a repeat echocardiogram was done and the patient has a left ventricular ejection fraction 45-50%. RV is moderately dilated. PA pressure estimated to be 35. He remains on a combination of Rocephin and Zithromax. He is on metoprolol for rate control 50 mg by mouth twice a day. He is on Cozaar 25 mg for blood pressure control. The INR is at 2.2. Creatinine is at 63 with a creatinine of 1.5. Patient was reevaluated today on 09/07/2020, patient is on 2 L nasal cannula, O2 saturations 98%, patient is off 3% saline, his sodium today is 126, drifted down from 128, may place the patient on saline at 75 mL per hour. Patient remains on antibiotics in the form of Rocephin and Zithromax, for presumptive pneumonia although his chest x-ray showed mostly atelectasis, cannot rule out infiltrate. Patient is not using BiPAP. He is in atrial fibrillation with a rate of 89. On Coumadin. Patient had an echocardiogram which showed LV dysfunction with ejection fraction of 45-50%. And there is mild pulmonary hypertension. Patient is not using his BiPAP, he is now basically an overflow in the ICU, and the plan is to transfer the patient to [facility]. Pro-calcitonin was 0.24, not impressively elevated. Mentation seems to be improving significantly. Blood sugar is 338 which is likely contributing to his hyponatremia BUN is 50 creatinine is 1.16, hence I will start the patient on IV fluid in the form of 0.9 normal saline at 100 mL per hour. Patient was reevaluated today on 09/08/2020, patient remains in the ICU as an overflow, remains on oxygen at 2 L via nasal cannula with O2 sats of 95%. Patient is in atrial fibrillation with controlled rate to 96/m. He is relatively asymptomatic except for complaining of pain in the right hip secondary to recent fall. Hence I have recommended x-rays of the hip. Apparently when he came into the ER he was complaining of knee pain and x-rays of the left knee were done at the time. He also had CT of the cervical spine for assessment of his recent fall. No other in the chart there was a mention of any right hip pain but today he seems to be complaining mostly of right hip pain. X-rays of the hip today showed no acute fracture or dislocation. CBC is relatively normal sodium is 128, holding. BUN is 50 creatinine 1.15, improving, chest x-ray showed basilar atelectasis. On 09/09/2020 patient seen in follow-up on medical surgical floor, he is resting comfortably in bed. Patient appears to be very weak, but appears to be in no acute distress, he is on 2 L of oxygen pulse ox is 94-95%, he is afebrile, hemodynamically stable, he responds to voice, denies any worsening dyspnea. He is oriented 3, his neurological exam is within normal limits, he states his right hip pain is improved, x-ray of the right hip revealed no fracture. He was evaluated by physical therapy and patient has global weakness, chronic right upper extremity and lower extremity weakness from previous history of CVA. Patient fatigues very easily, and becomes short of breath, requires extensive assistance with all ADLs including transfer from in and out of bed. Per nursing staff he was noted to be more wheezy on today's exam. His chest x-ray today shows strandy density in the right midlung, left basilar atelectasis, no evidence of overt heart failure. However patient is significantly in positive fluid balance since admission, a total of 10 kg since admission. We'll cut back his IV fluids, and patient could benefit from a dose of IV Lasix. His blood and urine cultures have shown no growth, today's labs have been reviewed showing INR 1.4, sodium is 128 which is stable compared to yesterday, chloride is 89, CO2 37, B1 is 44 creatinine 0.9. Patient continues on nebulized bronchodilators, he is on Singulair. Pharmacy is dosing his Coumadin. INR today is 1.4, in addition his home dose methadone has been restarted, patient is tolerating it w ell Objective - Vital Signs Vital signs: Vital Signs Temp 98.9 F 09/09/20 07:20 Pulse 78 09/09/20 07:20 Resp 18 09/09/20 08:00 BP 109/69 09/09/20 07:20 Pulse Ox 94 L 09/09/20 07:20 Intake & Output 09/08/20 09/09/20 09/09/20 18:59 06:59 18:59 Intake Total 400 240 Output Total 750 575 Balance -350 -575 240 Intake: Oral 400 240 Output: Urine 750 575 Other: Voiding Method Indwelling Catheter Indwelling Catheter Indwelling Catheter - Exam GENERAL EXAM: Alert, weak, 80-year-old white male, on 2 L of oxygen and a pulse ox of 94-95% comfortable in no apparent distress. HEAD: Normocephalic/atraumatic. EYES: Normal reaction of pupils, equal size. Conjunctiva pink, sclera white. NOSE: Clear with pink turbinates. THROAT: No erythema or exudates. NECK: No masses, no JVD, no thyroid enlargement, no adenopathy. CHEST: No chest wall deformity. Symmetrical expansion. LUNGS: Equal air entry with no crackles, wheeze, rhonchi or dullness. CVS: Regular rate and rhythm, normal S1 and S2, no gallops, no murmurs, no rubs ABDOMEN: Soft, nontender. No hepatosplenomegaly, normal bowel sounds, no guarding or rigidity. EXTREMITIES: No clubbing, mild pretibial edema no cyanosis, 2+ pulses and upper and lower extremities. MUSCULOSKELETAL: Muscle strength and tone normal. Multiple scattered bruises over right lower leg and ankle SPINE: No scoliosis or deformity SKIN: No rashes CENTRAL NERVOUS SYSTEM: Alert and oriented -3. No focal deficits, tone is normal in all 4 extremities. PSYCHIATRIC: Alert and oriented -3. Appropriate affect. Intact judgment and insight. - Labs CBC & Chem 7: 09/08/20 04:35 09/09/20 08:41 Labs: Abnormal Lab Results - Last 24 Hours (Table) 09/08/20 09/08/20 09/09/20 Range/Units 16:47 20:46 06:51 PT (9.0-12.0) sec INR (<1.2) Sodium (137-145) mmol/L Chloride (98-107) mmol/L Carbon Dioxide (22-30) mmol/L BUN (9-20) mg/dL Glucose (74-99) mg/dL POC Glucose (mg/dL) 275 H 337 H 224 H (75-99) mg/dL 09/09/20 09/09/20 09/09/20 Range/Units 08:41 08:41 11:50 PT 14.3 H (9.0-12.0) sec INR 1.4 H (<1.2) Sodium 128 L (137-145) mmol/L Chloride 89 L (98-107) mmol/L Carbon Dioxide 37 H (22-30) mmol/L BUN 44 H (9-20) mg/dL Glucose 216 H (74-99) mg/dL POC Glucose (mg/dL) 309 H (75-99) mg/dL Microbiology - Last 24 Hours (Table) 09/04/20 16:45 Blood Culture - Preliminary Blood No Growth after 96 hours 09/04/20 16:30 Blood Culture - Preliminary Blood No Growth after 96 hours Assessment and Plan Plan: Assessment: #1. Acute hypoxic and hypercapnic respiratory failure, and the exact etiology is unclear, but seems to be related to narcotics and methadone, has significantly improved #2. History of COPD, inactive #3. Chronic atrial fibrillation on Coumadin #4. Hypovolemic hyponatremia initially, and patient was treated with 3% saline, however patient is now appears to be hypevolemic and will be given a dose of Lasix #5. Coronary artery disease and previous stent placement #6. History of CVA and right-sided weakness #7. Ischemic cardiomyopathy and LV dysfunction and ejection fraction is 45% #8. Type 2 diabetes mellitus #9. Benign essential hypertension #10. Chronic pain syndrome #11. Benign prostatic hypertrophy and previous history of TURP #12. Remote smoking history #13. History of streptococcal sepsis in 2018 #14. History of depression #15. Chronic gait dysfunction #16. Right hip pain and limited range of motion, however x-rays are negative for any fracture #17. Fluid overload, and mild wheezing, patient will be given a dose of Lasix #18. General medical debility Plan: Give the patient 1 dose of IV Lasix 40 mg Continue bronchodilators Chest x-ray has been reviewed Current back IV fluids to 10 ML per hour or Hep-Lock IV fluids Otherwise stable to transfer to [facility] to a swing bed Patient is quite debilitated will likely need ECF Coumadin dosing per pharmacy CODE STATUS is DO NOT RESUSCITATE Overall prognosis is guarded I performed a history & physical examination of the patient and discussed their management with my nurse practitioner, Tiffany Clements. I reviewed the nurse practitioner's note and agree with the documented findings and plan of care. Lung sounds are positive for diffuse wheezes throughout the lung burris. The findings and the impression was discussed with the patient. I attest to the documentation by the nurse practitioner. Time with Patient: Less than 30
--- NOTE | 2020-09-09 16:23 | P.PN ---
Subjective Progress Note Date: 09/09/20 Patient is doing fairly well today. He was up in the chair when I saw him. His having increased wheezing noted Objective - Vital Signs Vital signs: Vital Signs Temp 98.6 F 09/09/20 14:00 Pulse 82 09/09/20 15:37 Resp 17 09/09/20 14:00 BP 116/59 09/09/20 14:00 Pulse Ox 91 L 09/09/20 14:00 Intake & Output 09/08/20 09/09/20 09/09/20 18:59 06:59 18:59 Intake Total 400 240 Output Total 750 575 Balance -350 -575 240 Intake: Oral 400 240 Output: Urine 750 575 Other: Voiding Method Indwelling Catheter Indwelling Catheter Indwelling Catheter - Exam General: The patient is awake and alert, in no distress Eye: there is normal conjunctiva bilaterally. Neck: The neck is supple, there is no JVD. Cardiovascular: Normal S1-S2, no S3-S4, no murmurs. Respiratory: Lungs with expiratory wheezing all over the chest Gastrointestinal: Abdomen is soft, nontender Musculoskeletal: There is no pedal edema. Neurological:. Speech is normal. Skin: Skin is warm and dry - Labs CBC & Chem 7: 09/08/20 04:35 09/09/20 08:41 Labs: Abnormal Lab Results - Last 24 Hours (Table) 09/08/20 09/08/20 09/09/20 Range/Units 16:47 20:46 06:51 PT (9.0-12.0) sec INR (<1.2) Sodium (137-145) mmol/L Chloride (98-107) mmol/L Carbon Dioxide (22-30) mmol/L BUN (9-20) mg/dL Glucose (74-99) mg/dL POC Glucose (mg/dL) 275 H 337 H 224 H (75-99) mg/dL 09/09/20 09/09/20 09/09/20 Range/Units 08:41 08:41 11:50 PT 14.3 H (9.0-12.0) sec INR 1.4 H (<1.2) Sodium 128 L (137-145) mmol/L Chloride 89 L (98-107) mmol/L Carbon Dioxide 37 H (22-30) mmol/L BUN 44 H (9-20) mg/dL Glucose 216 H (74-99) mg/dL POC Glucose (mg/dL) 309 H (75-99) mg/dL Microbiology - Last 24 Hours (Table) 09/04/20 16:45 Blood Culture - Preliminary Blood No Growth after 96 hours 09/04/20 16:30 Blood Culture - Preliminary Blood No Growth after 96 hours Assessment and Plan Assessment: This is a 80-year-old female with past medical history noted below who presented to the emergency room after he sustained a fall at a [facility]. He was admitted to the hospital and evaluated for further management of his medical problems noted below. Community acquired pneumonia: Patient finished 5 days course of antibiotic with azithromycin and ceftriaxone. Blood culture negative to date. Acute and hypercapnic respiratory failure: Requiring BiPAP during this admission. Overall condition improved. Patient was seen and evaluated by pulmonology. He is currently on 2 L of oxygen via nasal cannula. Ischemic cardiomyopathy causing Acute on Chronic Heart Failure with reduced ejection fraction, EF 30-35% Hyponatremia and hypokalemia Acute kidney injury superimposed on CKD stage III -Patient received hypertonic saline during this admission. He also received IV fluid hydration with normal saline. Nephrology following closely. Sodium level is stable. Getting SolTabs twice daily Moderate persistent asthma Permanent atrial fibrillation, rate controlled CAD HTN HLD DM 2 Chronic obstructive uropathy, usually self catheterizing at home with the help of his . Irwin catheter inserted for now -Home medications reviewed and reconciled -DuoNeb's when necessary, continue home Symbicort, fluticasone, montelukast -Continue Plavix, Coumadin, metoprolol, losartan -Continue home gabapentin, Accu-Cheks every before meals/at bedtime, low-dose sliding scale insulin, 10 units daily of long-acting (on 54 at home) -Continue atorvastatin -Continue home methadone Today, I reviewed his medication list and lab work results. We will postpone discharge until tomorrow given worsening wheezing and awaiting her lab work in the morning
[2020-09-09 16:42] LABS: Glucose,Whole Blood 237 mg/dL (75-99)
[2020-09-09 20:10] LABS: Glucose,Whole Blood 383 mg/dL (75-99)
[2020-09-09] MEDS: MELATONIN 3 MG TABLET PO SCH (20:22)
[2020-09-09] MEDS: MONTELUKAST 10 MG TAB PO SCH (20:22)
[2020-09-09] MEDS ORDERED: LACTULOSE 20 GM/30 ML CUP PO ONE (20:43)
[2020-09-10] MEDS: NALOXONE 0.4 MG/ML 1 ML VIAL IV PRN ×2 (02:37→02:42)
[2020-09-10 02:44] LABS: Glucose,Whole Blood 296 mg/dL (75-99)
--- NOTE | 2020-09-10 04:01 | P.EN ---
A team activated on this patient Patient had sudden onset of altered mental status with unresponsiveness, blood sugar was in the 300s range, vital signs are stable with blood pressure 126/77, oxygen saturation 96% heartrate in the 60s to 70s Patient does not make any eye contact does not follow commands staring in the blank shaking his left shoulder (which she does at baseline) Lungs breath sounds audible bilaterally Heart normal S1 and S2 regular rate and rhythm Irwin cath in place Hyponatremia improving Patient does take methadone 5 mg 3 times a day supposed to be home medication this is suspected to be the culprit resulting in acute metabolic encephalopathy secondary to opiates Patient given Narcan and showed slight improvement after the second dose of Narcan patient started talking making good eye contact and follows simple commands Recommendations is for reviewing why the patient was taking methadone 5 mg 3 times a day. For the time being I will adjust it to once daily 5 mg this is high risk medication for this patient age group and should be considered other alternatives Continue to monitor overall patient condition and vital signs closely for possible need to repeat Narcan dose. Or start to drip 43 minutes were spent providing critical care service in the care of this patient excluding procedure
[2020-09-10 07:17] LABS: Glucose,Whole Blood 332 mg/dL (75-99)
[2020-09-10 07:28] LABS: INR 1.9 (<1.2); Prothrombin Time 18.3 sec (9.0-12.0)
[2020-09-10] MEDS: IPRATROPIUM-ALBUTEROL 3 ML NEB INHALATION SCH ×4 (08:36→19:48)
[2020-09-10] MEDS: INSULIN DETEMIR (LEVEMIR) 100 UNIT/ML SYR SQ SCH (09:37)
[2020-09-10] MEDS: INSULIN ASPART (NovoLOG) 100 UNIT/ML VIAL SQ SCH ×4 (09:39→21:00)
[2020-09-10] MEDS: GABAPENTIN 100 MG CAP PO SCH ×3 (09:41→20:59)
[2020-09-10] MEDS: LOSARTAN 25 MG TAB PO SCH (09:42)
[2020-09-10] MEDS: ATORVASTATIN 40 MG TAB PO SCH (09:43)
[2020-09-10] MEDS: SERTRALINE 100 MG TAB PO SCH (09:43)
[2020-09-10] MEDS: METHADONE 5 MG TAB PO SCH (09:44)
[2020-09-10] MEDS: SODIUM CHLORIDE TAB 1 GM TAB PO SCH (09:47)
[2020-09-10] MEDS: METOPROLOL TARTRATE 50 MG TAB PO SCH ×2 (09:47→20:59)
[2020-09-10] MEDS: SENNOSIDES-DOCUSATE SODIUM 1 EACH TAB PO SCH ×2 (09:48→20:59)
[2020-09-10] MEDS: CLOPIDOGREL 75 MG TAB PO SCH (09:48)
[2020-09-10] MEDS ORDERED: FUROSEMIDE 10 MG/ML 4 ML VIAL IV STA (10:05)
[2020-09-10 10:08] LABS: African American GFR (CKD) 80 (>60 ml/min/1.73 sqM); Anion Gap 5 mmol/L; Blood Urea Nitrogen 45 mg/dL (9-20); Calcium 8.4 mg/dL (8.4-10.2); Carbon Dioxide 35 mmol/L (22-30); Chloride 88 mmol/L (98-107); Glucose 299 mg/dL (74-99); Non-African American GFR(CKD) 69 (>60 ml/min/1.73 sqM); Potassium 3.9 mmol/L (3.5-5.1); Sodium 128 mmol/L (137-145)
[2020-09-10 11:34] LABS: Glucose,Whole Blood 291 mg/dL (75-99)
--- NOTE | 2020-09-10 11:43 | P.PN ---
Subjective Progress Note Date: 09/10/20 Principal diagnosis: Acute metabolic encephalopathy Acute hypoxic and hypercapnic respiratory failure possibly drug induced secondary to morphine and methadone. his is a 80-year-old male patient got transferred to the intensive. This morning because of altered mentation, dyspnea, hypoxemia and BiPAP dependent respiratory failure. The patient got admitted yesterday and history of essential limited as the patient was admitted under the care of the hospitalist group for pain to the left ankle and a sprain after a fall. There is no evidence of fracture based on the x-rays. However, in the emergency, the patient was given morphine and altered mental status that occurred on the floor was initially suspected to be related to morphine intake. The patient was given Narcan with suboptimal response. Following that, a blood gas was obtained and it showed a pH of 7.33 with a pCO2 of 71 and pO2 of 115 and this was done and FiO2 of 40%. Based on these results, the patient was started on a BiPAP at a pressure of 12/5 cm of water with an FiO2 of 40% and following that the patient got transferred to the intensive care unit. The chest x-ray that was done overnight showed some atelectatic changes in lung bases bilaterally. No. Airspace disease. No gross signs of congestion heart failure. This patient has no significant leukocytosis. He is afebrile. At this point in time his blood pressure is systolic in the mid 90s. His anticoagulated regarding chronic atrial fibrillation and INR is at 2.8. Creatinine is up to 1.5 with a mean of 56. Sodium level is on down to 121. No seizure activity has been noted. He is quite lethargic yet arousable. He has previous history of CVA and chronic right-sided weakness. He is quite debilitated and is at higher risk of falls. He has been hospitalized in the past back in 2017 for staph septicemia. For now, is currently on no pressors. No skin rashes. There is some erythema along the left ankle area related to the recent fall. He has an extensive past medical history. 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 On today's evaluation of 09/06/2020, the patient is awake and oriented. Much more improved compared to yesterday. He is communicating. No altered mentation. He is off the BiPAP. He was on the BiPAP throughout the night yesterday. Note that during the day he was on and off taken off the BiPAP and this morning he is off the BiPAP is currently on oxygen at 2 L per minute nasal cannula. As far as mentation, this is improved. The patient was given 3% hypertonic saline and this was discontinued 4 AM this morning. The sodium level is up to 127. The patient is tolerating a regular diet. Cardiac rhythm remains A. fib. INR is therapeutic for now. Meanwhile, a repeat echocardiogram was done and the patient has a left ventricular ejection fraction 45-50%. RV is moderately dilated. PA pressure estimated to be 35. He remains on a combination of Rocephin and Zithromax. He is on metoprolol for rate control 50 mg by mouth twice a day. He is on Cozaar 25 mg for blood pressure control. The INR is at 2.2. Creatinine is at 63 with a creatinine of 1.5. Patient was reevaluated today on 09/07/2020, patient is on 2 L nasal cannula, O2 saturations 98%, patient is off 3% saline, his sodium today is 126, drifted down from 128, may place the patient on saline at 75 mL per hour. Patient remains on antibiotics in the form of Rocephin and Zithromax, for presumptive pneumonia although his chest x-ray showed mostly atelectasis, cannot rule out infiltrate. Patient is not using BiPAP. He is in atrial fibrillation with a rate of 89. On Coumadin. Patient had an echocardiogram which showed LV dysfunction with ejection fraction of 45-50%. And there is mild pulmonary hypertension. Patient is not using his BiPAP, he is now basically an overflow in the ICU, and the plan is to transfer the patient to [facility]. Pro-calcitonin was 0.24, not impressively elevated. Mentation seems to be improving significantly. Blood sugar is 338 which is likely contributing to his hyponatremia BUN is 50 creatinine is 1.16, hence I will start the patient on IV fluid in the form of 0.9 normal saline at 100 mL per hour. Patient was reevaluated today on 09/08/2020, patient remains in the ICU as an overflow, remains on oxygen at 2 L via nasal cannula with O2 sats of 95%. Patient is in atrial fibrillation with controlled rate to 96/m. He is relatively asymptomatic except for complaining of pain in the right hip secondary to recent fall. Hence I have recommended x-rays of the hip. Apparently when he came into the ER he was complaining of knee pain and x-rays of the left knee were done at the time. He also had CT of the cervical spine for assessment of his recent fall. No other in the chart there was a mention of any right hip pain but today he seems to be complaining mostly of right hip pain. X-rays of the hip today showed no acute fracture or dislocation. CBC is relatively normal sodium is 128, holding. BUN is 50 creatinine 1.15, improving, chest x-ray showed basilar atelectasis. On 09/09/2020 patient seen in follow-up on medical surgical floor, he is resting comfortably in bed. Patient appears to be very weak, but appears to be in no acute distress, he is on 2 L of oxygen pulse ox is 94-95%, he is afebrile, hemodynamically stable, he responds to voice, denies any worsening dyspnea. He is oriented 3, his neurological exam is within normal limits, he states his right hip pain is improved, x-ray of the right hip revealed no fracture. He was evaluated by physical therapy and patient has global weakness, chronic right upper extremity and lower extremity weakness from previous history of CVA. Patient fatigues very easily, and becomes short of breath, requires extensive assistance with all ADLs including transfer from in and out of bed. Per nursing staff he was noted to be more wheezy on today's exam. His chest x-ray today shows strandy density in the right midlung, left basilar atelectasis, no evidence of overt heart failure. However patient is significantly in positive fluid balance since admission, a total of 10 kg since admission. We'll cut back his IV fluids, and patient could benefit from a dose of IV Lasix. His blood and urine cultures have shown no growth, today's labs have been reviewed showing INR 1.4, sodium is 128 which is stable compared to yesterday, chloride is 89, CO2 37, B1 is 44 creatinine 0.9. Patient continues on nebulized bronchodilators, he is on Singulair. Pharmacy is dosing his Coumadin. INR today is 1.4, in addition his home dose methadone has been restarted, patient is tolerating it w jerome On 09/10/2020 patient seen in follow-up. Rapid response team was called to the bedside early in the morning at around 4:00. Patient had episode of unresponsiveness, blood sugar was in the range of 300s, vital signs were stable at the time, patient had stable O2 sats ration is around 96%, heart rate was in the 60s and 70s. Patient was not following commands, not making any eye contact, and she was just staring 0.8 and shaking his left shoulder. Breathing pattern seem to be nonlabored, his hyponatremia was improving, patient was suspected to have metabolic encephalopathy secondary to opiates, he was given 2 doses of Narcan, with clinical improvement, he was starting to make eye contact and following simple commands. His methadone dose was adjusted, and was dropped down to once daily, review the patient a dose of IV Lasix yesterday, still appears to be fluid overloaded, he has produced 2.3 L and urine output in the last 24 hours. His chest x-ray yesterday showed left basilar atelectasis, overall patient appears to have generalized edema. This morning he is awake and alert, he is opening eyes, he is generally weak, but responding appropriately. Breathing comfortably, he is currently on 2 L of oxygen pulse ox 95%, he is afebrile. Objective - Vital Signs Vital signs: Vital Signs Temp 97.7 F 09/10/20 07:26 Pulse 95 09/10/20 07:26 Resp 18 09/10/20 04:23 BP 147/71 09/10/20 07:26 Pulse Ox 95 09/10/20 04:23 Intake & Output 09/09/20 09/10/20 09/10/20 18:59 06:59 18:59 Intake Total 600 Output Total 1550 750 Balance -950 -750 Intake: Oral 600 Output: Urine 1550 750 Other: Voiding Method Indwelling Catheter Indwelling Catheter Indwelling Catheter - Exam GENERAL EXAM: Alert, weak, 80-year-old white male, on 2 L of oxygen and a pulse ox of 94-95% comfortable in no apparent distress. HEAD: Normocephalic/atraumatic. EYES: Normal reaction of pupils, equal size. Conjunctiva pink, sclera white. NOSE: Clear with pink turbinates. THROAT: No erythema or exudates. NECK: No masses, no JVD, no thyroid enlargement, no adenopathy. CHEST: No chest wall deformity. Symmetrical expansion. LUNGS: Equal air entry with no crackles, wheeze, rhonchi or dullness. CVS: Regular rate and rhythm, normal S1 and S2, no gallops, no murmurs, no rubs ABDOMEN: Soft, nontender. No hepatosplenomegaly, normal bowel sounds, no guarding or rigidity. EXTREMITIES: No clubbing, mild pretibial edema no cyanosis, 2+ pulses and upper and lower extremities. MUSCULOSKELETAL: Muscle strength and tone normal. Multiple scattered bruises over right lower leg and ankle SPINE: No scoliosis or deformity SKIN: No rashes CENTRAL NERVOUS SYSTEM: Alert and oriented -3. No focal deficits, tone is normal in all 4 extremities. PSYCHIATRIC: Alert and oriented -3. Appropriate affect. Intact judgment and insight. - Labs CBC & Chem 7: 09/08/20 04:35 09/10/20 06:11 Labs: Abnormal Lab Results - Last 24 Hours (Table) 09/09/20 09/09/20 09/09/20 Range/Units 11:50 16:41 20:08 PT (9.0-12.0) sec INR (<1.2) Sodium (137-145) mmol/L Chloride (98-107) mmol/L Carbon Dioxide (22-30) mmol/L BUN (9-20) mg/dL Glucose (74-99) mg/dL POC Glucose (mg/dL) 309 H 237 H 383 H (75-99) mg/dL 09/10/20 09/10/20 09/10/20 Range/Units 02:30 06:11 06:11 PT 18.3 H (9.0-12.0) sec INR 1.9 H (<1.2) Sodium 128 L (137-145) mmol/L Chloride 88 L (98-107) mmol/L Carbon Dioxide 35 H (22-30) mmol/L BUN 45 H (9-20) mg/dL Glucose 299 H (74-99) mg/dL POC Glucose (mg/dL) 296 H (75-99) mg/dL 09/10/20 09/10/20 Range/Units 07:04 11:29 PT (9.0-12.0) sec INR (<1.2) Sodium (137-145) mmol/L Chloride (98-107) mmol/L Carbon Dioxide (22-30) mmol/L BUN (9-20) mg/dL Glucose (74-99) mg/dL POC Glucose (mg/dL) 332 H 291 H (75-99) mg/dL Microbiology - Last 24 Hours (Table) 09/04/20 16:30 Blood Culture - Preliminary Blood No Growth after 120 hours 09/04/20 16:45 Blood Culture - Preliminary Blood No Growth after 120 hours Assessment and Plan Plan: Assessment: #1. Acute hypoxic and hypercapnic respiratory failure, and the exact etiology is unclear, but seems to be related to narcotics and methadone, has significantly improved #2. History of COPD, inactive #3. Chronic atrial fibrillation on Coumadin #4. Hypovolemic hyponatremia initially, and patient was treated with 3% saline, however patient is now appears to be hypervolemic and will be given a dose of Lasix #5. Coronary artery disease and previous stent placement #6. History of CVA and right-sided weakness #7. Ischemic cardiomyopathy and LV dysfunction and ejection fraction is 45% #8. Type 2 diabetes mellitus #9. Benign essential hypertension #10. Chronic pain syndrome #11. Benign prostatic hypertrophy and previous history of TURP #12. Remote smoking history #13. History of streptococcal sepsis in 2018 #14. History of depression #15. Chronic gait dysfunction #16. Right hip pain and limited range of motion, however x-rays are negative for any fracture #17. Fluid overload, and mild wheezing, patient will be given a dose of Lasix #18. General medical debility #19. Episode of unresponsiveness, acute metabolic encephalopathy, possibly related to methadone, responded to Narcan, methadone dose has been adjusted Plan: Give the patient another dose of Lasix Follow-up labs tomorrow Accurate intake and output Daily weights Continue bronchodilators Methadone dose has been adjusted Continue monitoring for any changes in his mental status Physical therapy Likely discharge to [facility] I performed a history & physical examination of the patient and discussed their management with my nurse practitioner, Tiffany Clements. I reviewed the nurse practitioner's note and agree with the documented findings and plan of care. Lung sounds are positive for diffuse wheezes throughout the lung burris. The findings and the impression was discussed with the patient. I attest to the documentation by the nurse practitioner. Time with Patient: Less than 30
[2020-09-10] MEDS: FLUTICASONE 50MCG/SPRAY NASAL 16GM EA NOSTRIL SCH (12:12)
[2020-09-10] MEDS: SODIUM CHLORIDE 0.9% 1,000 ML IV SCH (12:18)
--- NOTE | 2020-09-10 12:42 | PN ---
PROGRESS NOTE Patient is seen for followup for hyponatremia. Patient's serum sodium has been staying at about 128 for the last 3-4 days. It was initially at 121. The patient is maintained on sodium chloride tabs. Blood pressure has been slightly on the lower side. Urine osmolality has still not been done. This morning patient denies any significant complaints. PHYSICAL EXAMINATION: Blood pressure 147/71, heart rate 116 per minute, he is afebrile. Examination of the heart S1, S2. Examination of the lungs, bilateral breath sounds are heard. Abdomen is soft, nontender. Examination of lower extremities shows no evidence of edema. [employer] exam grossly intact. LAB: Show sodium 128, potassium 3.9, chloride 88, CO2 is 35, BUN 45, creatinine 1.0. ASSESSMENT: 1. Acute kidney injury, appears to be secondary to hypotension and prerenal, currently improved. 2. Hyponatremia. Unfortunately, urine osmolality has still not been done. Cortisol level was slightly on the lower side. Patient is currently maintained on sodium chloride tabs. I will add a saline challenge if there are no plans for discharge. Again, I would like to avoid long-term use of sodium chloride tablets given his history of cardiomyopathy and CHF, although currently patient is not in overt heart failure. PLAN: Reorder urine osmolality. Try normal saline challenge. Continue with the sodium chloride tabs for now. MMODL / IJN: [id number] /
[2020-09-10 14:13] VITALS: BMI 34.4
--- NOTE | 2020-09-10 15:21 | P.PN ---
Subjective Progress Note Date: 09/10/20 Patient was awake and alert when I saw him today. He denies any shortness of breath. Objective - Vital Signs Vital signs: Vital Signs Temp 98.6 F 09/10/20 14:00 Pulse 95 09/10/20 14:00 Resp 18 09/10/20 04:23 BP 133/46 09/10/20 14:00 Pulse Ox 95 09/10/20 04:23 Intake & Output 09/09/20 09/10/20 09/10/20 18:59 06:59 18:59 Intake Total 600 Output Total 1550 750 600 Balance -950 -750 -600 Weight 118.6 kg Intake: Oral 600 Output: Urine 1550 750 600 Other: Voiding Method Indwelling Catheter Indwelling Catheter Indwelling Catheter # Bowel Movements 2 - Exam General: The patient is awake and alert, in no distress Eye: there is normal conjunctiva bilaterally. Neck: The neck is supple, there is no JVD. Cardiovascular: Normal S1-S2, no S3-S4, no murmurs. Respiratory: Lungs with expiratory wheezing all over the chest Gastrointestinal: Abdomen is soft, nontender Musculoskeletal: There is no pedal edema. Neurological:. Speech is normal. Skin: Skin is warm and dry - Labs CBC & Chem 7: 09/08/20 04:35 09/10/20 06:11 Labs: Abnormal Lab Results - Last 24 Hours (Table) 09/09/20 09/09/20 09/10/20 Range/Units 16:41 20:08 02:30 PT (9.0-12.0) sec INR (<1.2) Sodium (137-145) mmol/L Chloride (98-107) mmol/L Carbon Dioxide (22-30) mmol/L BUN (9-20) mg/dL Glucose (74-99) mg/dL POC Glucose (mg/dL) 237 H 383 H 296 H (75-99) mg/dL 09/10/20 09/10/20 09/10/20 Range/Units 06:11 06:11 07:04 PT 18.3 H (9.0-12.0) sec INR 1.9 H (<1.2) Sodium 128 L (137-145) mmol/L Chloride 88 L (98-107) mmol/L Carbon Dioxide 35 H (22-30) mmol/L BUN 45 H (9-20) mg/dL Glucose 299 H (74-99) mg/dL POC Glucose (mg/dL) 332 H (75-99) mg/dL 09/10/20 Range/Units 11:29 PT (9.0-12.0) sec INR (<1.2) Sodium (137-145) mmol/L Chloride (98-107) mmol/L Carbon Dioxide (22-30) mmol/L BUN (9-20) mg/dL Glucose (74-99) mg/dL POC Glucose (mg/dL) 291 H (75-99) mg/dL Microbiology - Last 24 Hours (Table) 09/04/20 16:30 Blood Culture - Preliminary Blood No Growth after 120 hours 09/04/20 16:45 Blood Culture - Preliminary Blood No Growth after 120 hours Assessment and Plan Assessment: This is a 80-year-old female with past medical history noted below who presented to the emergency room after he sustained a fall at a retirement. He was admitted to the hospital and evaluated for further management of his medical problems noted below. Community acquired pneumonia: Patient finished 5 days course of antibiotic with azithromycin and ceftriaxone. Blood culture negative to date. Acute and hypercapnic respiratory failure: Requiring BiPAP during this admission. Overall condition improved. Patient was seen and evaluated by pulmonology. He is currently on 2 L of oxygen via nasal cannula. Ischemic cardiomyopathy causing Acute on Chronic Heart Failure with reduced ejection fraction, EF 30-35% Hyponatremia and hypokalemia Acute kidney injury superimposed on CKD stage III -Patient received hypertonic saline during this admission. He also received IV fluid hydration with normal saline. Nephrology following closely. Sodium level is stable. Getting salt tabs twice daily Moderate persistent asthma Permanent atrial fibrillation, rate controlled CAD HTN HLD DM 2 Chronic obstructive uropathy, usually self catheterizing at home with the help of his . Irwin catheter inserted for now -Home medications reviewed and reconciled -DuoNeb's when necessary, continue home Symbicort, fluticasone, montelukast -Continue Plavix, Coumadin, metoprolol, losartan -Continue home gabapentin, Accu-Cheks every before meals/at bedtime, low-dose sliding scale insulin, 10 units daily of long-acting (on 54 at home) -Continue atorvastatin -Continue home methadone Today, I reviewed his medication list and lab work results. His home dose of methadone was decreased from 5 mg 3 times a day to 5 mg once daily given episode of unresponsiveness overnight responding to Narcan. This was discussed with the patient and his family at bedside. We will continue to monitor closely. Plan to discharge to [facility] tomorrow if remains stable.
[2020-09-10 16:43] LABS: Glucose,Whole Blood 199 mg/dL (75-99)
[2020-09-10] MEDS: WARFARIN 2 MG TAB PO SCH (17:13)
[2020-09-10 20:50] LABS: Glucose,Whole Blood 189 mg/dL (75-99)
[2020-09-10] MEDS: MELATONIN 3 MG TABLET PO SCH (20:59)
[2020-09-10] MEDS: MONTELUKAST 10 MG TAB PO SCH (20:59)
[2020-09-11] MEDS: SODIUM CHLORIDE 0.9% 1,000 ML IV SCH ×2 (00:02→09:30)
[2020-09-11 06:50] LABS: Glucose,Whole Blood 205 mg/dL (75-99)
[2020-09-11 07:40] LABS: INR 1.8 (<1.2); Prothrombin Time 17.7 sec (9.0-12.0)
[2020-09-11] MEDS: INSULIN ASPART (NovoLOG) 100 UNIT/ML VIAL SQ SCH ×3 (07:52→17:09)
[2020-09-11] MEDS: IPRATROPIUM-ALBUTEROL 3 ML NEB INHALATION SCH ×3 (09:05→15:56)
[2020-09-11 09:09] LABS: African American GFR (CKD) >90 (>60 ml/min/1.73 sqM); Anion Gap 3 mmol/L; Blood Urea Nitrogen 41 mg/dL (9-20); Calcium 8.5 mg/dL (8.4-10.2); Carbon Dioxide 38 mmol/L (22-30); Chloride 88 mmol/L (98-107); Glucose 215 mg/dL (74-99); Non-African American GFR(CKD) 82 (>60 ml/min/1.73 sqM); Potassium 4.1 mmol/L (3.5-5.1); Sodium 129 mmol/L (137-145)
[2020-09-11] MEDS: INSULIN DETEMIR (LEVEMIR) 100 UNIT/ML SYR SQ SCH (09:15)
[2020-09-11] MEDS: GABAPENTIN 100 MG CAP PO SCH ×2 (09:17→17:09)
[2020-09-11] MEDS: SODIUM CHLORIDE TAB 1 GM TAB PO SCH (09:17)
[2020-09-11] MEDS: SERTRALINE 100 MG TAB PO SCH (09:18)
[2020-09-11] MEDS: LOSARTAN 25 MG TAB PO SCH (09:18)
[2020-09-11] MEDS: CLOPIDOGREL 75 MG TAB PO SCH (09:19)
[2020-09-11] MEDS: ATORVASTATIN 40 MG TAB PO SCH (09:19)
[2020-09-11] MEDS: METOPROLOL TARTRATE 50 MG TAB PO SCH (09:21)
[2020-09-11] MEDS: METHADONE 5 MG TAB PO SCH (09:22)
[2020-09-11] MEDS: SENNOSIDES-DOCUSATE SODIUM 1 EACH TAB PO SCH (09:24)
[2020-09-11] MEDS: FLUTICASONE 50MCG/SPRAY NASAL 16GM EA NOSTRIL SCH (09:27)
[2020-09-11 09:36] LABS: HCT 39.6 % (39.0-53.0); HGB 13.1 gm/dL (13.0-17.5); MCH 29.6 pg (25.0-35.0); MCHC 33.1 g/dL (31.0-37.0); MCV 89.3 fL (80.0-100.0); Mean Platelet Volume 7.8; Platelet Count 219 k/uL (150-450); RBC 4.43 m/uL (4.30-5.90); RDW 12.8 % (11.5-15.5); WBC 6.3 k/uL (3.8-10.6)
[2020-09-11] MEDS ORDERED: FUROSEMIDE 10 MG/ML 4 ML VIAL IV STA (11:06)
[2020-09-11 11:43] LABS: Glucose,Whole Blood 338 mg/dL (75-99)
--- NOTE | 2020-09-11 12:53 | P.PN ---
Subjective Progress Note Date: 09/11/20 Principal diagnosis: Acute hypoxic and hypercapnic respiratory failure possibly drug induced secondary to morphine and methadone. This is a 80-year-old male patient got transferred to the intensive. This morning because of altered mentation, dyspnea, hypoxemia and BiPAP dependent respiratory failure. The patient got admitted yesterday and history of essential limited as the patient was admitted under the care of the hospitalist group for pain to the left ankle and a sprain after a fall. There is no evidence of fracture based on the x-rays. However, in the emergency, the patient was given morphine and altered mental status that occurred on the floor was initially suspected to be related to morphine intake. The patient was given Narcan with suboptimal response. Following that, a blood gas was obtained and it showed a pH of 7.33 with a pCO2 of 71 and pO2 of 115 and this was done and FiO2 of 40%. Based on these results, the patient was started on a BiPAP at a pr essure of 12/5 cm of water with an FiO2 of 40% and following that the patient got transferred to the intensive care unit. The chest x-ray that was done overnight showed some atelectatic changes in lung bases bilaterally. No. Airspace disease. No gross signs of congestion heart failure. This patient has no significant leukocytosis. He is afebrile. At this point in time his blood pressure is systolic in the mid 90s. His anticoagulated regarding chronic atrial fibrillation and INR is at 2.8. Creatinine is up to 1.5 with a mean of 56. Sodium level is on down to 121. No seizure activity has been noted. He is quite lethargic yet arousable. He has previous history of CVA and chronic ri ght-sided weakness. He is quite debilitated and is at higher risk of falls. He has been hospitalized in the past back in 2017 for staph septicemia. For now, is currently on no pressors. No skin rashes. There is some erythema along the left ankle area related to the recent fall. He has an extensive past medical history. 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 On today's evaluation of 09/06/2020, the patient is awake and oriented. Much more improved compared to yesterday. He is communicating. No altered mentation. He is off the BiPAP. He was on the BiPAP throughout the night yesterday. Note that during the day he was on and off taken off the BiPAP and this morning he is off the BiPAP is currently on oxygen at 2 L per minute nasal cannula. As far as mentation, this is improved. The patient was given 3% hypertonic saline and this was discontinued 4 AM this morning. The sodium level is up to 127. The patient is tolerating a regular diet. Cardiac rhythm remains A. fib. INR is therapeutic for now. Meanwhile, a repeat echocardiogram was done and the patient has a left ventricular ejection fraction 45-50%. RV is moderately dilated. PA pressure estimated to be 35. He remains on a combination of Rocephin and Zithromax. He is on metoprolol for rate control 50 mg by mouth twice a day. He is on Cozaar 25 mg for blood pressure control. The INR is at 2.2. Creatinine is at 63 with a creatinine of 1.5. Patient was reevaluated today on 09/07/2020, patient is on 2 L nasal cannula, O2 saturations 98%, patient is off 3% saline, his sodium today is 126, drifted down from 128, may place the patient on saline at 75 mL per hour. Patient remains on antibiotics in the form of Rocephin and Zithromax, for presumptive pneumonia although his chest x-ray showed mostly atelectasis, cannot rule out infiltrate. Patient is not using BiPAP. He is in atrial fibrillation with a rate of 89. On Coumadin. Patient had an echocardiogram which showed LV dysfunction with ejection fraction of 45-50%. And there is mild pulmonary hypertension. Patient is not using his BiPAP, he is now basically an overflow in the ICU, and the plan is to transfer the patient to [facility]. Pro-calcitonin was 0.24, not impressively elevated. Mentation seems to be improving significantly. Blood sugar is 338 which is likely contributing to his hyponatremia BUN is 50 creatinine is 1.16, hence I will start the patient on IV fluid in the form of 0.9 normal saline at 100 mL per hour. Patient was reevaluated today on 09/08/2020, patient remains in the ICU as an ove rflow, remains on oxygen at 2 L via nasal cannula with O2 sats of 95%. Patient is in atrial fibrillation with controlled rate to 96/m. He is relatively asymptomatic except for complaining of pain in the right hip secondary to recent fall. Hence I have recommended x-rays of the hip. Apparently when he came into the ER he was complaining of knee pain and x-rays of the left knee were done at the time. He also had CT of the cervical spine for assessment of his recent fall. No other in the chart there was a mention of any right hip pain but today he seems to be complaining mostly of right hip pain. X-rays of the hip today showed no acute fracture or dislocation. CBC is relatively normal sodium is 128, holding. BUN is 50 creatinine 1.15, improving, chest x-ray showed basilar atelectasis. On 09/09/2020 patient seen in follow-up on medical surgical floor, he is resting comfortably in bed. Patient appears to be very weak, but appears to be in no acute distress, he is on 2 L of oxygen pulse ox is 94-95%, he is afebrile, hemodynamically stable, he responds to voice, denies any worsening dyspnea. He is oriented 3, his neurological exam is within normal limits, he states his right hip pain is improved, x-ray of the right hip revealed no fracture. He was evaluated by physical therapy and patient has global weakness, chronic right upper extremity and lower extremity weakness from previous history of CVA. Patient fatigues very easily, and becomes short of breath, requires extensive assistance with all ADLs including transfer from in and out of bed. Per nursing staff he was noted to be more wheezy on today's exam. His chest x-ray today shows strandy density in the right midlung, left basilar atelectasis, no evidence of overt heart failure. However patient is significantly in positive fluid balance since admission, a total of 10 kg since admission. We'll cut back his IV fluids, and patient could benefit from a dose of IV Lasix. His blood and urine cultures have shown no growth, today's labs have been reviewed showing INR 1.4, sodium is 128 which is stable compared to yesterday, chloride is 89, CO2 37, B1 is 44 creatinine 0.9. Patient continues on nebulized bronchodilators, he is on Singulair. Pharmacy is dosing his Coumadin. INR today is 1.4, in addition his home dose methadone has been restarted, patient is tolerating it well On 09/10/2020 patient seen in follow-up. Rapid response team was called to the bedside early in the morning at around 4:00. Patient had episode of unresponsiveness, blood sugar was in the range of 300s, vital signs were stable at the time, patient had stable O2 sats ration is around 96%, heart rate was in the 60s and 70s. Patient was not following commands, not making any eye contact, and she was just staring 0.8 and shaking his left shoulder. Breathing pattern seem to be nonlabored, his hyponatremia was improving, patient was suspected to have metabolic encephalopathy secondary to opiates, he was given 2 doses of Narcan, with clinical improvement, he was starting to make eye contact and following simple commands. His methadone dose was adjusted, and was dropped down to once daily, review the patient a dose of IV Lasix yesterday, still appears to be fluid overloaded, he has produced 2.3 L and urine output in the last 24 hours. His chest x-ray yesterday showed left basilar atelectasis, overall patient appears to have generalized edema. This morning he is awake and alert, he is opening eyes, he is generally weak, but responding appropriately. Breathing comfortably, he is currently on 2 L of oxygen pulse ox 95%, he is afebrile. The patient is seen today 09/11/2020 in follow-up on the regular medical floor. He is currently awake and alert in no acute distress. He is maintaining O2 saturations in the 90s on 2 L/m per nasal cannula. Lungs sounds still with crackles. He is given additional Lasix today. Currently in a -1.6 L balance. Irwin catheter remains in place. Blood cultures reveal no growth. Urine culture reveals no growth. White count 6.3. Hemoglobin 13.1. INR 1.8. Sodium 129. Potassium 4.1. Creatinine 0.90. He remains on bronchodilators. Anticoagulated with warfarin. No further episodes of unresponsiveness. He does remain quite weak and debilitated. Objective - Vital Signs Vital signs: Vital Signs Temp 97.9 F 09/11/20 07:13 Pulse 70 09/11/20 12:19 Resp 18 09/11/20 12:19 BP 124/77 09/11/20 07:13 Pulse Ox 100 09/11/20 09:05 Intake & Output 09/10/20 09/11/20 09/11/20 18:59 06:59 18:59 Output Total 600 1600 Balance -600 -1600 Weight 118.6 kg Output: Urine 600 1600 Other: Voiding Method Indwelling Catheter Indwelling Catheter Indwelling Catheter # Bowel Movements 2 - Exam GENERAL EXAM: Alert, weak, 80-year-old male patient, on 2 L of oxygen and a pulse ox of 100% comfortable in no apparent distress. HEAD: Normocephalic/atraumatic. EYES: Normal reaction of pupils, equal size. Conjunctiva pink, sclera white. NOSE: Clear with pink turbinates. THROAT: No erythema or exudates. NECK: No masses, no JVD, no thyroid enlargement, no adenopathy. CHEST: No chest wall deformity. Symmetrical expansion. LUNGS: Equal air entry with no crackles, wheeze, rhonchi or dullness. CVS: Regular rate and rhythm, normal S1 and S2, no gallops, no murmurs, no rubs ABDOMEN: Soft, nontender. No hepatosplenomegaly, normal bowel sounds, no guarding or rigidity. EXTREMITIES: No clubbing, mild pretibial edema no cyanosis, 2+ pulses and upper and lower extremities. MUSCULOSKELETAL: Muscle strength and tone normal. Multiple scattered bruises over right lower leg and ankle SPINE: No scoliosis or deformity SKIN: No rashes CENTRAL NERVOUS SYSTEM: Alert and oriented -3. No focal deficits, tone is normal in all 4 extremities. PSYCHIATRIC: Alert and oriented -3. Appropriate affect. Intact judgment and insight. - Labs CBC & Chem 7: 09/11/20 07:06 09/11/20 07:06 Labs: Abnormal Lab Results - Last 24 Hours (Table) 09/10/20 09/10/20 09/11/20 Range/Units 16:42 20:43 06:47 PT (9.0-12.0) sec INR (<1.2) Sodium (137-145) mmol/L Chloride (98-107) mmol/L Carbon Dioxide (22-30) mmol/L BUN (9-20) mg/dL Glucose (74-99) mg/dL POC Glucose (mg/dL) 199 H 189 H 205 H (75-99) mg/dL 09/11/20 09/11/20 09/11/20 Range/Units 07:06 07:06 11:40 PT 17.7 H (9.0-12.0) sec INR 1.8 H (<1.2) Sodium 129 L (137-145) mmol/L Chloride 88 L (98-107) mmol/L Carbon Dioxide 38 H (22-30) mmol/L BUN 41 H (9-20) mg/dL Glucose 215 H (74-99) mg/dL POC Glucose (mg/dL) 338 H (75-99) mg/dL Microbiology - Last 24 Hours (Table) 09/04/20 16:45 Blood Culture - Final Blood No Growth after 144 hours 09/04/20 16:30 Blood Culture - Final Blood No Growth after 144 hours Assessment and Plan Assessment: 1 Acute hypoxic and hypercapnic respiratory failure, and the exact etiology is unclear, but seems to be related to narcotics and methadone, has significantly improved 2 History of COPD, inactive 3 Chronic atrial fibrillation on Coumadin 4 Hypovolemic hyponatremia initially, and patient was treated with 3% saline, however patient is now appears to be hypervolemic and will be given a dose of Lasix 5 Coronary artery disease and previous stent placement 6 History of CVA and right-sided weakness 7 Ischemic cardiomyopathy and LV dysfunction and ejection fraction is 45% 8 Type 2 diabetes mellitus 9 Benign essential hypertension 10 Chronic pain syndrome 11 Benign prostatic hypertrophy and previous history of TURP 12 Remote smoking history 13 History of streptococcal sepsis in 2018 14 History of depression 15 Chronic gait dysfunction 16 Right hip pain and limited range of motion, however x-rays are negative for any fracture 17 Fluid overload, and mild wheezing, patient will be given a dose of Lasix 18 General medical debility 19 Episode of unresponsiveness, acute metabolic encephalopathy, possibly related to methadone, responded to Narcan, methadone dose has been adjusted Plan: The patient was seen and evaluated by Dr. Peterson Currently stable from the pulmonary standpoint Will most likely need subacute rehabilitation Continue the current treatment plan Titrate down the FiO2 as tolerated I, the cosigning physician, performed a history & physical examination of the patient. Lungs sounds are clear. Maintaining good O2 saturations in the 90s on 2 L/m per nasal cannula. I discussed the assessment and plan of care with my nurse practitioner, Chuyita Williamson. I attest to the above note as dictated by her.
--- NOTE | 2020-09-11 13:51 | P.DS ---
Providers Date of admission: 09/04/20 16:28 Expected date of discharge: 09/11/20 Attending physician: Perry Correia MD Consults: 09/05/20 07:32 Consult Physician Stat Consulting Provider: Merna Brumfield Consult Reason/Comments: ICU management Do you want consulting provider notified?: Yes 09/07/20 12:27 Consult Physician Routine Consulting Provider: Ebenezer Cunningham Consult Reason/Comments: hyponatremia Do you want consulting provider notified?: Yes Primary care physician: Katharine Hill MD Hospital Course: Discharge Diagnosis: Acute hypoxic hypercapnic respiratory failure Community-acquired pneumonia Acute exacerbation of ischemic systolic congestive heart failure with ejection fraction 40-45% Left Ankle Sprain Lactic acidosis COPD Chronic atrial fibrillation on anticoagulation Hyponatremia secondary to diuretics and CHF Coronary artery disease History of CVA with residual right-sided weakness Diabetes 2 insulin requiring Gait dysfunction Hypertension Depression Chronic pain Dyslipidemia Hospital Course: Patient is a 80 yo CM with a hx of CAD, moderate persistenet asthma, HTN, HLD, ischemic cardiomyopathy, permanent A fib, GERD and DM who presented to the hospital for ankle pain after all fall. He had respiratory symptoms and was started on prednisone and doxycycline which she completed a few days before admission. In the ER he was noted to be hypoxic at 76% on room air was requiring 4 L nasal cannula. Chest x-ray showed right lower lobe pneumonia. X- ray of his left ankle did not demonstrate any fracture. He was subsequently diagnosed with community-acquired pneumonia with acute hypoxic respiratory failure and was started on ceftriaxone and Zithromax. An A-team called after admission due to altered mentation which was felt to be secondary to morphine in conjunction with ELEONORA and he was started on bipap. He was transferred to the ICU and Pulmonary was consulted. He did require 3% normal saline. His mentation and respiratory status continues to improve. He was given Lasix. He was followed by nephrology. He had one additional episode of confusion overnight was felt to be due to narcotics. His methadone was slowly weaned. He continued to improve and he was determined stable for discharge. He did complete a course of antibiotics. He will need close sodium monitoring and follow-up with Dr. Umaña. He will also need coumadin levels followed. He appears to have a left ankle sprain and should apply an LOLY wrap and follow-up with [facility]. Patient seen and examined at bedside. feeling back to baseline, some weakness, no shortness of breath, no nausea. Vital signs reviewed and stable. General: non toxic, no distress, appears at stated age Derm: warm, dry Head: atraumatic, normocephalic, symmetric Eyes: EOMI, no lid lag, anicteric sclera Mouth: no lip lesion, mucus membranes moist Cardiovascular: S1S2 reg, no murmur, positive posterior tibial pulse bilateral, Lungs: Faint wheeze bilateral, no rhonchi, no rales , no accessory muscle use Abdominal: soft, nontender to palpation, no guarding, no appreciable organomegaly Ext: no gross muscle atrophy, 1+ edema, no contractures Neuro: CN II-XI grossly intact, no focal neuro deficits Psych: Alert, oriented, appropriate affect A total of 35 minutes of time were spent preparing this complex discharge summary . Patient Condition at Discharge: Stable Plan - Discharge Summary Discharge Rx Participant: No New Discharge Prescriptions: New Methadone [Dolophine] 5 mg PO DAILY #7 tab Insulin Detemir (Levemir) [Levemir] 10 unit SQ DAILY@0700 syr Continue Magnesium Oxide [Mag-Ox] 250 mg PO DAILY Sertraline [Zoloft] 100 mg PO DAILY Nitroglycerin Sl Tabs [Nitrostat] 0.4 mg SUBLINGUAL Q5M PRN PRN Reason: Chest Pain Montelukast [Singulair] 10 mg PO HS Fluticasone Nasal [place] [Flonase Nasal [place]] 2 spr EA NOSTRIL DAILY Metoprolol Tartrate [Lopressor] 50 mg PO BID #60 tab Melatonin 3 mg PO HS tablet Losartan [Cozaar] 25 mg PO DAILY #30 tab Atorvastatin [Lipitor] 40 mg PO DAILY #30 tab Sennosides-Docusate Sodium [Senokot-S] 2 tab PO BID Insulin Aspart [NovoLOG Flexpen] See Protocol SQ AC-TID #1 vial Clopidogrel [Plavix] 75 mg PO DAILY #30 tab traZODone HCL [Desyrel] 50 mg PO HS PRN PRN Reason: Insomnia Warfarin Sodium 2 mg PO TU Furosemide [Lasix] 40 mg PO BID Budesonide/Formoterol Fumarate [Symbicort 160-4.5 Mcg Inhaler] 2 puff INHALATION RT-BID Warfarin Sodium 4 mg PO SUMOWETHFRSA Omeprazole [PriLOSEC] 20 mg PO BID Gabapentin [Neurontin] 100 mg PO TID #21 cap Discontinued Methadone [Dolophine] 5 mg PO Q8H #9 tab Potassium Chloride ER [K-Dur 20] 20 meq PO DAILY metOLazone [Zaroxolyn] 2.5 mg PO DAILY PRN PRN Reason: Edema Insulin Glargine,Hum.rec.anlog [Maral Soljohn] 54 units SQ DAILY Discharge Medication List Fluticasone Nasal [place] [Flonase Nasal [place]] 2 spr EA NOSTRIL DAILY 10/31/18 [History] Magnesium Oxide [Mag-Ox] 250 mg PO DAILY 10/31/18 [History] Montelukast [Singulair] 10 mg PO HS 10/31/18 [History] Nitroglycerin Sl Tabs [Nitrostat] 0.4 mg SUBLINGUAL Q5M PRN 10/31/18 [History] Sertraline [Zoloft] 100 mg PO DAILY 10/31/18 [History] Melatonin 3 mg PO HS tablet 11/08/18 [Rx] Metoprolol Tartrate [Lopressor] 50 mg PO BID #60 tab 11/08/18 [Rx] Atorvastatin [Lipitor] 40 mg PO DAILY #30 tab 08/30/19 [Rx] Losartan [Cozaar] 25 mg PO DAILY #30 tab 08/30/19 [Rx] Sennosides-Docusate Sodium [Senokot-S] 2 tab PO BID 09/02/19 [History] Clopidogrel [Plavix] 75 mg PO DAILY #30 tab 09/10/19 [Rx] Insulin Aspart [NovoLOG Flexpen] See Protocol SQ AC-TID #1 vial 09/10/19 [Rx] Budesonide/Formoterol Fumarate [Symbicort 160-4.5 Mcg Inhaler] 2 puff INHALATION RT-BID 09/04/20 [History] Furosemide [Lasix] 40 mg PO BID 09/04/20 [History] Omeprazole [PriLOSEC] 20 mg PO BID 09/04/20 [History] Warfarin Sodium 2 mg PO TU 09/04/20 [History] Warfarin Sodium 4 mg PO SUMOWETHFRSA 09/04/20 [History] traZODone HCL [Desyrel] 50 mg PO HS PRN 09/04/20 [History] Gabapentin [Neurontin] 100 mg PO TID #21 cap 09/11/20 [Rx] Insulin Detemir (Levemir) [Levemir] 10 unit SQ DAILY@0700 syr 09/11/20 [Rx] Methadone [Dolophine] 5 mg PO DAILY #7 tab 09/11/20 [Rx] Follow up Appointment(s)/Referral(s): Katharine Hill MD [Primary Care Provider] - 1-2 days Angelina Umaña MD [STAFF PHYSICIAN] - 1 Week Jose Cowart DO [Doctor of Osteopathic Medicine] - 1 Week Activity/Diet/Wound Care/Special Instructions: Activity: as tolerated Diet: heart healthy, 1.5L fluid restriction Special Instructions: Left ankle in LOLY wrap when up and walking BMP in 2-3 days DK: hyponatremia, hypokalemia Discharge Disposition: TRANSFER TO SNF/ECF
[2020-09-11 14:07] VITALS: BP 131/70; TEMP 98
--- NOTE | 2020-09-11 14:34 | PN ---
PROGRESS NOTE Patient is seen for followup for hyponatremia, currently euvolemic. Urine osmolality was finally sent and it is at 229. The patient is currently sleeping. He is comfortable. Denies any significant complaints. He received a dose of IV Lasix yesterday. PHYSICAL EXAMINATION: On examination today, blood pressure is 124/77, heart rate 71 per minute. He is afebrile. Examination of the heart S1, S2. Examination of lungs, bilateral breath sounds are heard. Abdomen is soft, nontender. Examination of lower extremities shows no edema. LAB: Show sodium 129, potassium 4.1, chloride 88, CO2 is 38, BUN 41, creatinine 0.9. ASSESSMENT: Hyponatremia, currently euvolemic. Urine osmolality 229. The patient received a dose of IV Lasix yesterday. He is maintained on sodium chloride tabs. He was also started on normal saline and the serum sodium level did not worsen. Therefore, this suggests there may be a component of hypovolemia. His sodium is slightly better at 129 from 128 yesterday. I will continue with the saline for now. I do see that he got a dose of IV Lasix by Pulmonology. A chest x-ray will be ordered. In the meantime, I will discontinue the sodium chloride tabs and repeat the serum sodium this evening. If his sodium continues to improve, I will discontinue the IV fluids as well. Of course, if the chest x-ray shows evidence of CHF, the fluids will be discontinued. MMODL / IJN: [id number] / MTDD
--- NOTE | 2020-09-11 15:50 | XR ---
EXAMINATION TYPE: XR chest 1V DATE OF EXAM: 09/11/2020 CLINICAL HISTORY: CHF. TECHNIQUE: Portable frontal view of the chest. COMPARISON: 09/09/2020 FINDINGS: Interval removal of central venous catheter. The cardiomediastinal silhouette is unchanged . Pulmonary vasculature is normal. Subsegmental atelectasis and/or scarring of the right mid lung red emonstrated. Small left pleural effusion versus atelectasis redemonstrated.. No pneumothorax seen. De generative changes of the spine. IMPRESSION: Unchanged radiographic appearance of the chest as above. No overt heart failure.
[2020-09-11 15:59] VITALS: RESP 18
[2020-09-11 16:07] VITALS: PULSE 70
[2020-09-11 16:39] LABS: Glucose,Whole Blood 264 mg/dL (75-99)
[2020-09-11] MEDS: HYDROcodone/APAP 5-325MG 1 EACH TAB PO PRN (17:12)
[2020-09-11] MEDS: WARFARIN 2 MG TAB PO SCH (17:36)
[2020-09-11] MEDS ORDERED: WARFARIN 2 MG TAB PO ONE (18:00)
[2020-09-15] MEDS ORDERED: WARFARIN 2 MG TAB PO SCH (18:00)
== END 2020-09-11 18:41 | DRG 193 ==
LOC: EC 14:18 → 4SSUR 16:28 → 2SICU 09-05 07:55 → 4SSUR 09-09 00:56
PROVIDERS: ADMIT Internal Medicine; ATTEND Internal Medicine
DX: J18.9 Pneumonia, unspecified organism (principal); G92 Toxic encephalopathy; I50.23 Acute on chronic systolic (congestive) heart failure; J96.01 Acute respiratory failure with hypoxia; J96.02 Acute respiratory failure with hypercapnia; I13.0 Hypertensive heart and chronic kidney disease with heart failure and stage 1 through stage 4 chronic kidney disease, or unspecified chronic kidney disease; I48.21 Permanent atrial fibrillation; I69.351 Hemiplegia and hemiparesis following cerebral infarction affecting right dominant side; J44.0 Chronic obstructive pulmonary disease with (acute) lower respiratory infection; J98.11 Atelectasis; N13.8 Other obstructive and reflux uropathy; N17.9 Acute kidney failure, unspecified; E87.2 Acidosis; E22.2 Syndrome of inappropriate secretion of antidiuretic hormone; J45.40 Moderate persistent asthma, uncomplicated; I27.20 Pulmonary hypertension, unspecified; E11.22 Type 2 diabetes mellitus with diabetic chronic kidney disease; E11.40 Type 2 diabetes mellitus with diabetic neuropathy, unspecified; T40.605A Adverse effect of unspecified narcotics, initial encounter; T50.2X5A Adverse effect of carbonic-anhydrase inhibitors, benzothiadiazides and other diuretics, initial encounter; E11.65 Type 2 diabetes mellitus with hyperglycemia; F32.9 Major depressive disorder, single episode, unspecified; Z79.01 Long term (current) use of anticoagulants; Z20.822 Contact with and (suspected) exposure to COVID-19; I25.10 Atherosclerotic heart disease of native coronary artery without angina pectoris; I25.5 Ischemic cardiomyopathy; M79.7 Fibromyalgia; N18.30 Chronic kidney disease, stage 3 unspecified; N40.1 Benign prostatic hyperplasia with lower urinary tract symptoms; G89.4 Chronic pain syndrome; S93.402A Sprain of unspecified ligament of left ankle, initial encounter; W01.0XXA Fall on same level from slipping, tripping and stumbling without subsequent striking against object, initial encounter; R26.9 Unspecified abnormalities of gait and mobility; H40.9 Unspecified glaucoma; G47.00 Insomnia, unspecified; Z95.5 Presence of coronary angioplasty implant and graft; E78.5 Hyperlipidemia, unspecified; E86.1 Hypovolemia; E87.6 Hypokalemia; F41.9 Anxiety disorder, unspecified; Z80.42 Family history of malignant neoplasm of prostate; Z79.02 Long term (current) use of antithrombotics/antiplatelets; Z79.4 Long term (current) use of insulin; Z79.51 Long term (current) use of inhaled steroids; Z79.899 Other long term (current) drug therapy; Z79.891 Long term (current) use of opiate analgesic; Z87.01 Personal history of pneumonia (recurrent); Z87.891 Personal history of nicotine dependence; Z90.79 Acquired absence of other genital organ(s); Z91.81 History of falling
CPT/HCPCS: 36415; 36600; 70450; 71045; 71046; 72125; 73501; 80048; 80053; 81001; 82533; 82805; 83605; 83735; 83880; 83930; 83935; 84132; 84145; 84295; 84443; 84484; 85025; 85027; 85610; 85730; 87040; 87086; 87635; 93005; 93306; 94640; 94660; 94760; 96361; 96372; 96374; 96375; 99285

== ENCOUNTER 2020-10-02 15:35 | Inpatient (IN) | payer MEDICARE, BC ==
[2020-10-02 17:00] LABS: Basophils # (A) 0.1 k/uL (0-0.2); Basophils % (A) 2 %; Eosinophils # (A) 0.2 k/uL (0-0.7); Eosinophils % (A) 3 %; HCT 43.8 % (39.0-53.0); HGB 13.7 gm/dL (13.0-17.5); Hypochromasia Slight; Lymphocytes # (A) 0.3 k/uL (1.0-4.8); Lymphocytes % (A) 7 %; MCH 29.5 pg (25.0-35.0); MCHC 31.3 g/dL (31.0-37.0); MCV 94.1 fL (80.0-100.0); Monocytes # (A) 0.6 k/uL (0-1.0); Monocytes % (A) 13 %; Neutrophils # (A) 3.4 k/uL (1.3-7.7); Neutrophils % (A) 73 %; Platelet Count 191 k/uL (150-450); RBC 4.65 m/uL (4.30-5.90); RDW 13.4 % (11.5-15.5); WBC 4.7 k/uL (3.8-10.6)
[2020-10-02 17:10] LABS: Partial Thromboplastin Time 36.1 sec (22.0-30.0)
[2020-10-02 17:14] LABS: Albumin 2.9 g/dL (3.5-5.0); C Reactive Protein 2.9 mg/dL (<1.0); Calcium 8.2 mg/dL (8.4-10.2); Magnesium 2.1 mg/dL (1.6-2.3); Potassium 3.8 mmol/L (3.5-5.1); Total Bilirubin 0.3 mg/dL (0.2-1.3); Total Protein 5.7 g/dL (6.3-8.2)
--- NOTE | 2020-10-02 17:33 | XR ---
EXAMINATION TYPE: XR chest 1V portable DATE OF EXAM: 10/02/2020 COMPARISON: 09/11/2020 HISTORY: Short of breath TECHNIQUE: Single view FINDINGS: Heart is normal. There is some patchy infiltrate and atelectasis at the lung bases. There i s no obvious heart failure. Thoracic aorta is atheromatous. There are no hilar masses. Bony thorax ap pears intact. IMPRESSION: There is some infiltrate and atelectasis in the lower lung burris which is worse than old exam. There is probably underlying pulmonary fibrosis.
[2020-10-02] MEDS ORDERED: ACETAMINOPHEN TAB 325 MG TAB PO STA (18:58)
--- NOTE | 2020-10-02 19:10 | CT ---
EXAMINATION TYPE: CT chest angio for PE DATE OF EXAM: 10/02/2020 COMPARISON: None HISTORY: SOB. +covid. CT DLP: 950.9 mGycm Automated exposure control for dose reduction was used. CONTRAST: Performed with IV Contrast, patient injected with 100 mL of Isovue 370. There are 3-D post processed images. There is some patchy interstitial and airspace infiltrates in both lungs. There is bilateral pleural effusions. Heart is enlarged. There are a few mediastinal lymph nodes up to 1 cm. There no hilar mass es. Thoracic aorta is atheromatous. Ascending aorta measures 4.1 cm. There is no dissection. There is cor onary artery calcification. I see no evidence of filling defect in the pulmonary arteries. Bony thorax is intact. There is some osteopenia an mild biconcave deformity of some thoracic vertebra . Upper abdominal soft tissues are intact. IMPRESSION: No evidence of pulmonary embolism. Cardiomegaly with pleural fluid and pulmonary infiltrates probably related to congestive heart failur e. There are few nonspecific mediastinal lymph nodes. 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
--- NOTE | 2020-10-02 19:14 | ED ---
General Adult HPI - General Chief complaint: Shortness of Breath Stated complaint: SOB, COVID + Time Seen by Provider: 10/02/20 15:52 Source: patient, EMS Mode of arrival: EMS - History of Present Illness Initial comments: 80-year-old male with history of COPD, heart failure, A. fib and currently on Coumadin presenting to the emergency department with a chief complaint of short ness of breath. Patient is coming from [facility] where he was found to be short of breath and hypoxic. Supposedly the patient was in the mid 80s on 3 L and was bumped up to 4 L on nasal cannula. Patient currently on 100% O2. Patient was found to be positive for Covid today and he was sent to the emergency department for further evaluation. Patient denies any chest pain but does report increased shortness of breath. He reports feeling wheezy. He does report some chills but denies any nausea or vomiting or diarrhea. He has no further complaints. - Related Data Home Medications Medication Instructions Recorded Confirmed Fluticasone Nasal [place] [Flonase 2 spr EA NOSTRIL DAILY@0800 10/31/18 10/02/20 Nasal [place]] Magnesium Oxide [Mag-Ox] 250 mg PO DAILY@1700 10/31/18 10/02/20 Montelukast [Singulair] 10 mg PO HS@2100 10/31/18 10/02/20 Nitroglycerin Sl Tabs [Nitrostat] 0.4 mg SUBLINGUAL Q5M PRN 10/31/18 10/02/20 Sertraline [Zoloft] 100 mg PO DAILY@0800 10/31/18 10/02/20 Sennosides-Docusate Sodium 2 tab PO BID@0800,1700 09/02/19 10/02/20 [Senokot-S] Budesonide/Formoterol Fumarate 2 puff INHALATION RT-BID@0800,1700 09/04/20 10/02/20 [Symbicort 160-4.5 Mcg Inhaler] Furosemide [Lasix] 40 mg PO BID@0800,1700 09/04/20 10/02/20 Omeprazole [PriLOSEC] 20 mg PO BID@0800,1700 09/04/20 10/02/20 Warfarin Sodium 4 mg PO SUMOWEFR 09/04/20 10/02/20 traZODone HCL [Desyrel] 50 mg PO HS PRN 09/04/20 10/02/20 Acetaminophen Tab [Tylenol] 650 mg PO Q4H PRN 10/02/20 10/02/20 Albuterol Sulfate [Ventolin HFA] 1 puff INHALATION RT-TID 10/02/20 10/02/20 Atorvastatin [Lipitor] 40 mg PO HS@209910/02/20 10/02/20 Clopidogrel [Plavix] 75 mg PO DAILY@0810/02/20 10/02/20 Dapagliflozin Propanediol [Farxiga] 5 mg PO DAILY@0800 10/02/20 10/02/20 Gabapentin [Neurontin] 100 mg PO BID@0800,209910/02/20 10/02/20 INSULIN ASPART (NovoLOG) [NovoLOG 4 unit SQ DAILY@0700 10/02/20 10/02/20 (formulary)] INSULIN ASPART (NovoLOG) [NovoLOG 6 unit SQ BID@1100,1730 10/02/20 10/02/20 (formulary)] INSULIN ASPART (NovoLOG) [NovoLOG See Protocol SQ AC-TID 10/02/20 10/02/20 (formulary)] Insulin Detemir (Levemir) [Levemir] 35 unit SQ HS@2130 10/02/20 10/02/20 Ipratropium-Albuterol Nebulize 3 ml INHALATION RT-Q6H 10/02/20 10/02/20 [Duoneb 0.5 mg-3 mg/3 ml Soln] Losartan [Cozaar] 25 mg PO DAILY@0810/02/20 10/02/20 Magnesium Hydroxide [Milk of 2,400 mg PO DAILY PRN 10/02/20 10/02/20 Magnesia] Melatonin 3 mg PO HS@209910/02/20 10/02/20 Methadone [Dolophine] 5 mg PO BID@0800,2100 10/02/20 10/02/20 Metoprolol Tartrate [Lopressor] 50 mg PO BID@0800,1700 10/02/20 10/02/20 Na Phos,M-B/Na Phos,Di-Ba [Fleet 133 ml RECTAL DAILY PRN 10/02/20 10/02/20 Adult] Nystatin 100,000Unit/gm Cream 1 applic TOPICAL TID 10/02/20 10/02/20 [Mycostatin Cream] Ondansetron [Zofran] 4 mg PO Q8H PRN 10/02/20 10/02/20 Polyethylene Glycol 3350 [Miralax] 17 gm PO DAILY@0800 10/02/20 10/02/20 Potassium Chloride ER [K-Dur 20] 20 meq PO DAILY@0800 10/02/20 10/02/20 Simethicone 80 mg PO TID@0800,1200,1700 10/02/20 10/02/20 Warfarin [Coumadin] 3 mg PO TUTHSA 10/02/20 10/02/20 bisacodyL [Dulcolax] 10 mg RECTAL DAILY PRN 10/02/20 10/02/20 Allergies Allergy/AdvReac Type Severity Reaction Status Date / Time Sulfa (Sulfonamide Allergy Rash/Hives Verified 10/02/20 16:08 Antibiotics) morphine AdvReac Severe Unknown Verified 10/02/20 16:08 Review of Systems ROS Statement: Those systems with pertinent positive or pertinent negative responses have been documented in the HPI. ROS Other: All systems not noted in ROS Statement are negative. 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 History of Any Multi-Drug Resistant Organisms: None Reported Past Surgical History: Back Surgery, Heart Catheterization With Stent, Orth opedic Surgery, Prostate Surgery Additional Past Surgical History / Comment(s): unsuccessful cardioversion in 2016, endoscopic sinus surgery/polypectomy, colonoscopy, TURP, bilateral hydrocelectomy, rt elbow surgery, toñito cataracts, laminectomy, recent stent placement 08/26/2019 2 cardiac stent, 1 stent ilitac artery Past Anesthesia/Blood Transfusion Reactions: No Reported Reaction Date of Last Stent Placement:: 2019 Past Psychological History: Anxiety, Depression Smoking Status: Never smoker Past Alcohol Use History: None Reported Past Drug Use History: None Reported - Past Family History Mother Family Medical History: No Reported History Father Family Medical History: Cancer Additional Family Medical History / Comment(s): Father had prostrate cancer. General Exam Limitations: no limitations General appearance: alert, in no apparent distress, obese Head exam: Present: atraumatic, normocephalic, normal inspection Eye exam: Present: normal appearance, PERRL, EOMI Pupils: Present: normal accommodation ENT exam: Present: normal exam, normal oropharynx, mucous membranes dry, TM's normal bilaterally, normal external ear exam Neck exam: Present: normal inspection, full ROM. Absent: tenderness Respiratory exam: Present: wheezes (Diffuse bilateral wheezing). Absent: normal lung sounds bilaterally, respiratory distress, rales Cardiovascular Exam: Present: regular rate, normal rhythm, normal heart sounds GI/Abdominal exam: Present: soft. Absent: distended, tenderness, guarding, rebound Extremities exam: Present: normal inspection, full ROM Back exam: Present: normal inspection, full ROM Neurological exam: Present: alert, oriented X3 Psychiatric exam: Present: normal affect, normal mood Skin exam: Present: warm, dry, intact, normal color Course Vital Signs 10/02/20 10/02/20 10/02/20 15:38 17:52 20:06 Temperature 99.7 F H 98.9 F Pulse Rate 64 98 98 Respiratory 18 18 18 Rate Blood Pressure 107/70 134/83 129/78 O2 Sat by Pulse 99 99 98 Oximetry Medical Decision Making - Medical Decision Making 80-year-old male with history of COPD, heart failure, A. fib and currently on Coumadin presenting to the emergency department with a chief complaint of shortness of breath. On physical examination, diffuse bilateral wheezing, mild. Patient is 100% on 3 L of nasal cannula.laboratory work shows CBC with no acute findings. Elevated coags. INR 4. Patient is currently on Coumad in.lactic acid within normal limits. Blood culture pending. Elevated troponin 0.067. This appears to have increased based on the most recent one. CT chest angio shows no signs of pulmonary embolism. I spoke with Dr. Anguiano that we will admit patient. He recommended IV azithromycin, 6 modems oral Decadron and remdeservir. spoke with pulmonary and remdesevir was ordered. Pulmonary consult - Lab Data Result diagrams: 10/02/20 16:55 10/02/20 16:55 Lab Results 10/02/20 10/02/20 10/02/20 Range/Units 16:55 16:55 16:55 WBC 4.7 (3.8-10.6) k/uL RBC 4.65 (4.30-5.90) m/uL Hgb 13.7 (13.0-17.5) gm/dL Hct 43.8 (39.0-53.0) % MCV 94.1 (80.0-100.0) fL MCH 29.5 (25.0-35.0) pg MCHC 31.3 (31.0-37.0) g/dL RDW 13.4 (11.5-15.5) % Plt Count 191 (150-450) k/uL MPV 9.0 Neutrophils % 73 % Lymphocytes % 7 % Monocytes % 13 % Eosinophils % 3 % Basophils % 2 % Neutrophils # 3.4 (1.3-7.7) k/uL Lymphocytes # 0.3 L (1.0-4.8) k/uL Monocytes # 0.6 (0-1.0) k/uL Eosinophils # 0.2 (0-0.7) k/uL Basophils # 0.1 (0-0.2) k/uL Hypochromasia Slight PT 38.0 H (9.0-12.0) sec INR 4.0 H (<1.2) APTT 36.1 H (22.0-30.0) sec Sodium 138 (137-145) mmol/L Potassium 3.8 (3.5-5.1) mmol/L Chloride 94 L (98-107) mmol/L Carbon Dioxide 40 H (22-30) mmol/L Anion Gap 4 mmol/L BUN 25 H (9-20) mg/dL Creatinine 0.96 (0.66-1.25) mg/dL Est GFR (CKD-EPI)AfAm 88 (>60 ml/min/1.73 sqM) Est GFR (CKD-EPI)NonAf 76 (>60 ml/min/1.73 sqM) Glucose 73 L (74-99) mg/dL Plasma Lactic Acid Alan (0.7-2.0) mmol/L Calcium 8.2 L (8.4-10.2) mg/dL Magnesium 2.1 (1.6-2.3) mg/dL Total Bilirubin 0.3 (0.2-1.3) mg/dL AST 25 (17-59) U/L ALT 12 (4-49) U/L Alkaline Phosphatase 90 (38-126) U/L Lactate Dehydrogenase 456 (313-618) U/L Troponin I (0.000-0.034) ng/mL C-Reactive Protein 2.9 H (<1.0) mg/dL Total Protein 5.7 L (6.3-8.2) g/dL Albumin 2.9 L (3.5-5.0) g/dL 10/02/20 10/02/20 Range/Units 16:55 17:47 WBC (3.8-10.6) k/uL RBC (4.30-5.90) m/uL Hgb (13.0-17.5) gm/dL Hct (39.0-53.0) % MCV (80.0-100.0) fL MCH (25.0-35.0) pg MCHC (31.0-37.0) g/dL RDW (11.5-15.5) % Plt Count (150-450) k/uL MPV Neutrophils % % Lymphocytes % % Monocytes % % Eosinophils % % Basophils % % Neutrophils # (1.3-7.7) k/uL Lymphocytes # (1.0-4.8) k/uL Monocytes # (0-1.0) k/uL Eosinophils # (0-0.7) k/uL Basophils # (0-0.2) k/uL Hypochromasia PT (9.0-12.0) sec INR (<1.2) APTT (22.0-30.0) sec Sodium (137-145) mmol/L Potassium (3.5-5.1) mmol/L Chloride (98-107) mmol/L Carbon Dioxide (22-30) mmol/L Anion Gap mmol/L BUN (9-20) mg/dL Creatinine (0.66-1.25) mg/dL Est GFR (CKD-EPI)AfAm (>60 ml/min/1.73 sqM) Est GFR (CKD-EPI)NonAf (>60 ml/min/1.73 sqM) Glucose (74-99) mg/dL Plasma Lactic Acid Alan 0.7 (0.7-2.0) mmol/L Calcium (8.4-10.2) mg/dL Magnesium (1.6-2.3) mg/dL Total Bilirubin (0.2-1.3) mg/dL AST (17-59) U/L ALT (4-49) U/L Alkaline Phosphatase (38-126) U/L Lactate Dehydrogenase (313-618) U/L Troponin I 0.067 H* (0.000-0.034) ng/mL C-Reactive Protein (<1.0) mg/dL Total Protein (6.3-8.2) g/dL Albumin (3.5-5.0) g/dL Disposition Clinical Impression: COVID-19, Hypoxemia, Elevated troponin Disposition: ADMITTED IP TO THIS HOSP Condition: Fair Is patient prescribed a controlled substance at d/c from ED?: No Time of Disposition: 20:00
[2020-10-02] MEDS ORDERED: NALOXONE 0.4 MG/ML 1 ML VIAL IV PRN (19:45)
[2020-10-02] MEDS ORDERED: ACETAMINOPHEN TAB 325 MG TAB PO PRN ×2 (19:45→21:21)
[2020-10-02] MEDS ORDERED: AZITHROMYCIN 500 MG in SODIUM CHLORIDE 0.9% 250 ML IVPB STA (19:46)
[2020-10-02] MEDS ORDERED: dexAMETHasone 2 MG TAB PO STA (19:46)
[2020-10-02] MEDS ORDERED: REMDESIVIR 200 MG in SODIUM CHLORIDE 0.9% 250 ML IVPB ONE (21:00)
[2020-10-02] MEDS ORDERED: bisacodyL 10 MG SUPP RECTAL PRN (21:21)
[2020-10-02] MEDS ORDERED: NITROGLYCERIN SL TABS 0.4 MG TAB SUBLINGUAL PRN (21:21)
[2020-10-02] MEDS ORDERED: ONDANSETRON 4 MG TAB PO PRN (21:21)
[2020-10-02 21:22] LABS: Glucose,Whole Blood 93 mg/dL (75-99)
[2020-10-02] MEDS: METHADONE 5 MG TAB PO SCH (21:47)
[2020-10-02] MEDS: NYSTATIN 100,000UNIT/GM CREAM 30 GM TUBE TOPICAL SCH (22:15)
[2020-10-02] MEDS: INSULIN DETEMIR (LEVEMIR) 100 UNIT/ML SYR SQ SCH (22:15)
[2020-10-02] MEDS: SENNOSIDES-DOCUSATE SODIUM 1 EACH TAB PO SCH (23:10)
[2020-10-03] MEDS ORDERED: ALBUTEROL HFA INHALER INHALATION PRN (00:29)
[2020-10-03] MEDS ORDERED: IPRATROPIUM-ALBUTEROL 3 ML NEB INHALATION SCH (02:00)
[2020-10-03 04:05] LABS: Ferritin 104.9 ng/mL (22.0-322.0)
[2020-10-03 07:11] LABS: Glucose,Whole Blood 214 mg/dL (75-99)
[2020-10-03] MEDS: NON FORMULARY DRUG (Dapagliflozin Propanediol [Farxiga] 5 MG Tablet) PO SCH (08:24)
[2020-10-03] MEDS: SENNOSIDES-DOCUSATE SODIUM 1 EACH TAB PO SCH ×2 (08:36→18:08)
[2020-10-03] MEDS: CLOPIDOGREL 75 MG TAB PO SCH (08:36)
[2020-10-03] MEDS: METHADONE 5 MG TAB PO SCH ×2 (08:36→21:34)
[2020-10-03] MEDS: METOPROLOL TARTRATE 50 MG TAB PO SCH ×2 (08:37→18:09)
[2020-10-03] MEDS: SERTRALINE 100 MG TAB PO SCH (08:37)
[2020-10-03] MEDS: polyethylene glycoL 3350 17 GM POWD.PACK PO SCH (08:37)
[2020-10-03] MEDS: LOSARTAN 25 MG TAB PO SCH (08:37)
[2020-10-03] MEDS: FUROSEMIDE 40 MG TAB PO SCH ×2 (08:37→18:08)
[2020-10-03] MEDS: SIMETHICONE 80 MG CHEWABLE PO SCH ×3 (08:37→18:08)
[2020-10-03] MEDS: PANTOPRAZOLE 40 MG TABLET PO SCH ×2 (08:37→18:08)
[2020-10-03] MEDS: GABAPENTIN 100 MG CAP PO SCH ×2 (08:37→21:33)
[2020-10-03] MEDS: POTASSIUM CHLORIDE ER 20 MEQ TAB.ER PO SCH (08:37)
[2020-10-03] MEDS: FLUTICASONE 50MCG/SPRAY NASAL 16GM EA NOSTRIL SCH (08:38)
[2020-10-03] MEDS: INSULIN ASPART (NovoLOG) 100 UNIT/ML VIAL SQ SCH ×6 (08:38→18:09)
[2020-10-03] MEDS: NYSTATIN 100,000UNIT/GM CREAM 30 GM TUBE TOPICAL SCH ×3 (08:38→21:39)
[2020-10-03] MEDS ORDERED: NA PHOS,M-B/NA PHOS,DI-BA 133 ML ENEMA RECTAL PRN (09:00)
[2020-10-03 09:02] LABS: ALT 12 U/L (4-49); African American GFR (CKD) 90 (>60 ml/min/1.73 sqM); Albumin 3.1 g/dL (3.5-5.0); Albumin/Globulin Ratio 1.1; Alkaline Phosphatase 96 U/L (38-126); Anion Gap 5 mmol/L; Blood Urea Nitrogen 24 mg/dL (9-20); Calcium 8.4 mg/dL (8.4-10.2); Carbon Dioxide 40 mmol/L (22-30); Chloride 93 mmol/L (98-107); Globulin 2.9 g/dL; Glucose 212 mg/dL (74-99); Non-African American GFR(CKD) 78 (>60 ml/min/1.73 sqM); Potassium 4.5 mmol/L (3.5-5.1); Sodium 138 mmol/L (137-145); Total Bilirubin 0.4 mg/dL (0.2-1.3)
[2020-10-03 09:03] LABS: AST 25 U/L (17-59)
[2020-10-03 09:05] LABS: INR 2.9 (<1.2); Partial Thromboplastin Time 34.4 sec (22.0-30.0); Prothrombin Time 28.2 sec (9.0-12.0)
[2020-10-03] MEDS: ALBUTEROL HFA INHALER INHALATION SCH ×3 (09:16→19:18)
[2020-10-03] MEDS: SYMBICORT 160-4.5 MCG INHALER INHALATION SCH ×2 (09:16→19:17)
--- NOTE | 2020-10-03 09:36 | P.CRDCN ---
History of Present Illness Consult date: 10/03/20 History of present illness: CHIEF COMPLAINT: Congestive heart failure HISTORY OF PRESENT ILLNESS: This is a 80-year-old male with a past medical history significant for ischemic myopathy, hypertension, hyperlipidemia, periphe ral arterial disease, peripheral vascular disease, CVA, chronic atrial fibrillation, and crit catheterization with subsequent iliac stenting, LAD stenting, and circumflex stenting in July 2020.. Patient follows in the office with Dr. Gardner. We have been asked to see the patient in consultation for c ongestive heart failure. Patient is admitted to the hospital secondary to Covid. Case discussed with patient's nurse who states the patient denies any chest pain or pressure. Patient does not have any significant edema or rales in his lung bases. Blood pressure stable with a recent reading of 147/81. He is on 2 L nasal cannula with oxygen saturations greater than 92%. DIAGNOSTICS: EKG reveals atrial fibrillation with PVCs. Left axis deviation. Chest xray infiltrates and atelectasis in the lower lung burris which is worse compared to exam. Probably underlying pulmonary fibrosis. Chest CTA: No evidence of pulmonary embolus and. Cardio megaly with pleural fluid and pulmonary infiltrates probably related to congestive heart failure. There are a few nonspecific mediastinal lymph nodes. 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 Laboratory data: WBC 4.7. Hemoglobin 13.7. Daily count 191. INR 4.0. Repeat 2.9. Sodium 138. Potassium 4.5. BUN 24. Creatinine 0.94. Troponin 0.067. Current home cardiac medications include Coumadin 3 mg Monday and 4 mg Monday, metoprolol tartrate 50mg twice a day, losartan 25 mg daily, Lasix 40 mg twice a day, Plavix 75 mg daily, Lipitor 40 mg daily Echocardiogram completed in August 2020 revealed ejection fraction 45-50%. Mild mitral regurgitation. Mild pulmonary hypertension REVIEW OF SYSTEMS: Thorough review of systems not completed secondary to limited evalu ation/examination due to Covid19 PHYSICAL EXAM: Thorough physical exam not completed secondary to limited evaluation/examination due to Covid19 ASSESSMENT: Covid 19 Chronic persistent atrial fibrillation, on anti-coagulation with Coumadin Supratherapeutic INR Abnormal troponin, likely secondary to Covid infection Chronic diastolic congestive heart failure, ejection fraction 45-50% History of PAD and PVD Hypertension Hyperlipidemia History of CVA with residual right-sided weakness Coronary artery disease with previous stenting PLAN: No need to repeat echocardiogram as this was performed last month Continue to trend troponin levels Add Aldactone 12.5 mg daily Resume Coumadin when coagulopathy resolves. Continue to monitor INR Resume additional cardiac medications Further recommendations pending patient course Nurse practitioner note has been reviewed by physician. Signing provider agrees with the documented findings, assessment, and plan of care. 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 History of Any Multi-Drug Resistant Organisms: None Reported Past Surgical History: Back Surgery, Heart Catheterization With Stent, Orthopedic Surgery, Prostate Surgery Additional Past Surgical History / Comment(s): unsuccessful cardioversion in 2017, endoscopic sinus surgery/polypectomy, colonoscopy, TURP, bilateral hydr ocelectomy, rt elbow surgery, toñito cataracts, laminectomy, recent stent placement 08/26/2019 2 cardiac stent, 1 stent ilitac artery Past Anesthesia/Blood Transfusion Reactions: No Reported Reaction Date of Last Stent Placement:: 2019 Past Psychological History: Anxiety, Depression Smoking Status: Never smoker Past Alcohol Use History: None Reported Past Drug Use History: None Reported - Past Family History Mother Family Medical History: No Reported History Father Family Medical History: Cancer Additional Family Medical History / Comment(s): Father had prostrate cancer. Medications and Allergies Home Medications Medication Instructions Recorded Confirmed Type Fluticasone Nasal [place] [Flonase 2 spr EA NOSTRIL DAILY@0800 10/31/18 10/02/20 History Nasal [place]] Magnesium Oxide [Mag-Ox] 250 mg PO DAILY@1700 10/31/18 10/02/20 History Montelukast [Singulair] 10 mg PO HS@2100 10/31/18 10/02/20 History Nitroglycerin Sl Tabs [Nitrostat] 0.4 mg SUBLINGUAL Q5M PRN 10/31/18 10/02/20 History Sertraline [Zoloft] 100 mg PO DAILY@0800 10/31/18 10/02/20 History Sennosides-Docusate Sodium 2 tab PO BID@0800,1700 09/02/19 10/02/20 History [Senokot-S] Budesonide/Formoterol Fumarate 2 puff INHALATION RT-BID@0800,1700 09/04/20 10/02/20 History [Symbicort 160-4.5 Mcg Inhaler] Furosemide [Lasix] 40 mg PO BID@0800,1700 09/04/20 10/02/20 History Omeprazole [PriLOSEC] 20 mg PO BID@0800,1700 09/04/20 10/02/20 History Warfarin Sodium 4 mg PO SUMOWEFR 09/04/20 10/02/20 History traZODone HCL [Desyrel] 50 mg PO HS PRN 09/04/20 10/02/20 History Acetaminophen Tab [Tylenol] 650 mg PO Q4H PRN 10/02/20 10/02/20 History Albuterol Sulfate [Ventolin HFA] 1 puff INHALATION RT-TID 10/02/20 10/02/20 History Atorvastatin [Lipitor] 40 mg PO HS@2100 10/02/20 10/02/20 History Clopidogrel [Plavix] 75 mg PO DAILY@0800 10/02/20 10/02/20 History Dapagliflozin Propanediol [Farxiga] 5 mg PO DAILY@0800 10/02/20 10/02/20 History Gabapentin [Neurontin] 100 mg PO BID@0800,2100 10/02/20 10/02/20 History INSULIN ASPART (NovoLOG) [NovoLOG 4 unit SQ DAILY@0700 10/02/20 10/02/20 History (formulary)] INSULIN ASPART (NovoLOG) [NovoLOG 6 unit SQ BID@1100,1730 10/02/20 10/02/20 History (formulary)] INSULIN ASPART (NovoLOG) [NovoLOG See Protocol SQ AC-TID 10/02/20 10/02/20 History (formulary)] Insulin Detemir (Levemir) [Levemir] 35 unit SQ HS@2130 10/02/20 10/02/20 History Ipratropium-Albuterol Nebulize 3 ml INHALATION RT-Q6H 10/02/20 10/02/20 History [Duoneb 0.5 mg-3 mg/3 ml Soln] Losartan [Cozaar] 25 mg PO DAILY@0800 10/02/20 10/02/20 History Magnesium Hydroxide [Milk of 2,400 mg PO DAILY PRN 10/02/20 10/02/20 History Magnesia] Melatonin 3 mg PO HS@2100 10/02/20 10/02/20 History Methadone [Dolophine] 5 mg PO BID@0800,2100 10/02/20 10/02/20 History Metoprolol Tartrate [Lopressor] 50 mg PO BID@0800,1700 10/02/20 10/02/20 History Na Phos,M-B/Na Phos,Di-Ba [Fleet 133 ml RECTAL DAILY PRN 10/02/20 10/02/20 History Adult] Nystatin 100,000Unit/gm Cream 1 applic TOPICAL TID 10/02/20 10/02/20 History [Mycostatin Cream] Ondansetron [Zofran] 4 mg PO Q8H PRN 10/02/20 10/02/20 History Polyethylene Glycol 3350 [Miralax] 17 gm PO DAILY@0800 10/02/20 10/02/20 History Potassium Chloride ER [K-Dur 20] 20 meq PO DAILY@0800 10/02/20 10/02/20 History Simethicone 80 mg PO TID@0800,1200,1700 10/02/20 10/02/20 History Warfarin [Coumadin] 3 mg PO TUTHSA 10/02/20 10/02/20 History bisacodyL [Dulcolax] 10 mg RECTAL DAILY PRN 10/02/20 10/02/20 History Allergies Allergy/AdvReac Type Severity Reaction Status Date / Time Sulfa (Sulfonamide Allergy Rash/Hives Verified 10/02/20 16:08 Antibiotics) morphine AdvReac Severe Unknown Verified 10/02/20 16:08 Physical Exam Vitals: Vital Signs Temp Pulse Pulse Resp BP BP Pulse Ox 10/03/20 08:49 98.7 F 119 H 20 147/81 96 10/03/20 02:00 98.1 F 19 127/79 96 10/03/20 01:04 94 L 10/02/20 23:14 18 10/02/20 21:17 107/74 10/02/20 20:06 98.9 F 98 18 129/78 98 10/02/20 17:52 98 18 134/83 99 10/02/20 15:38 99.7 F H 64 18 107/70 99 Intake and Output 10/02/20 10/03/20 10/03/20 22:59 06:59 14:59 Intake Total 250 Output Total 300 Balance -50 Intake: Intake, IV Titration 250 Amount Remdesivir 200 mg In 250 Sodium Chloride 0.9% 250 ml @ 250 mls/hr IVPB ONCE ONE Rx#:[id number] Output: Urine 300 Other: # Voids 3 Weight 108.862 kg Results 10/02/20 16:55 10/03/20 08:00 Cardiac Enzymes 10/02/20 10/02/20 10/03/20 Range/Units 16:55 16:55 08:00 AST 25 25 (17-59) U/L Lactate Dehydrogenase 456 (313-618) U/L Troponin I 0.067 H* (0.000-0.034) ng/mL Coagulation 10/02/20 10/03/20 Range/Units 16:55 08:00 PT 38.0 H 28.2 H (9.0-12.0) sec APTT 36.1 H 34.4 H (22.0-30.0) sec CBC 10/02/20 Range/Units 16:55 WBC 4.7 (3.8-10.6) k/uL RBC 4.65 (4.30-5.90) m/uL Hgb 13.7 (13.0-17.5) gm/dL Hct 43.8 (39.0-53.0) % Plt Count 191 (150-450) k/uL Comprehensive Metabolic Panel 10/02/20 10/03/20 Range/Units 16:55 08:00 Sodium 138 138 (137-145) mmol/L Potassium 3.8 4.5 (3.5-5.1) mmol/L Chloride 94 L 93 L (98-107) mmol/L Carbon Dioxide 40 H 40 H (22-30) mmol/L BUN 25 H 24 H (9-20) mg/dL Creatinine 0.96 0.94 (0.66-1.25) mg/dL Glucose 73 L 212 H (74-99) mg/dL Calcium 8.2 L 8.4 (8.4-10.2) mg/dL AST 25 25 (17-59) U/L ALT 12 12 (4-49) U/L Alkaline Phosphatase 90 96 (38-126) U/L Total Protein 5.7 L 6.0 L (6.3-8.2) g/dL Albumin 2.9 L 3.1 L (3.5-5.0) g/dL Current Medications Generic Name Dose Route Start Last Admin Trade Name Freq PRN Reason Stop Dose Admin Acetaminophen 650 mg 10/02/20 21:21 Acetaminophen Tab 325 Mg Tab PO Q4H PRN GENERAL DISCOMFORT Albuterol Sulfate 2 puff 10/03/20 08:00 Albuterol Hfa Inhaler INHALATION RT-TID [facility] Albuterol Sulfate 2 puff 10/03/20 00:29 Albuterol Hfa Inhaler INHALATION RT-QID PRN Shortness Of Breath Or Wheezing Atorvastatin Calcium 40 mg 10/03/20 21:00 Atorvastatin 40 Mg Tab PO HS@2100 [facility] Bisacodyl 10 mg 10/02/20 21:21 Bisacodyl 10 Mg Supp RECTAL DAILY PRN Constipation Budesonide/Formoterol Fumarate 2 puff 10/03/20 08:00 Symbicort 160-4.5 Mcg Inhaler INHALATION RT-BID@0800,1700 [facility] Clopidogrel Bisulfate 75 mg 10/03/20 08:00 10/03/20 08:36 Clopidogrel 75 Mg Tab PO 75 mg DAILY@0800 [facility] Administration Fluticasone Propionate 2 spray 10/03/20 08:00 10/03/20 08:38 Fluticasone 50mcg/[place] Nasal 16gm EA NOSTRIL 2 spray DAILY@0800 [facility] Administration Furosemide 40 mg 10/03/20 08:00 10/03/20 08:37 Furosemide 40 Mg Tab PO 40 mg BID@0800,1700 [facility] Administration Gabapentin 100 mg 10/03/20 08:00 10/03/20 08:37 Gabapentin 100 Mg Cap PO 100 mg BID@0800,2100 [facility] Administration Insulin Aspart 0 unit 10/03/20 07:30 10/03/20 08:38 Insulin Aspart (Novolog) 100 Unit/Ml Vial SQ 4 unit AC-TID [facility] Administration Protocol Insulin Aspart 4 unit 10/03/20 07:00 10/03/20 08:38 Insulin Aspart (Novolog) 100 Unit/Ml Vial SQ 4 unit DAILY@0700 [facility] Administration Insulin Aspart 6 unit 10/03/20 11:00 Insulin Aspart (Novolog) 100 Unit/Ml Vial SQ BID@1100,1730 [facility] Insulin Detemir 35 unit 10/02/20 21:30 10/02/20 22:15 Insulin Detemir (Levemir) 100 Unit/Ml Syr SQ 35 unit HS@2130 [facility] Administration Losartan Potassium 25 mg 10/03/20 08:00 10/03/20 08:37 Losartan 25 Mg Tab PO 25 mg DAILY@0800 [facility] Administration Magnesium Hydroxide 2,400 mg 10/02/20 21:21 Magnesium Hydroxide 2,400 Mg/10 Ml Cup PO DAILY PRN Constipation Magnesium Oxide 200 mg 10/03/20 17:00 Magnesium Oxide 400 Mg Tab PO DAILY@1700 [facility] Melatonin 3 mg 10/03/20 21:00 Melatonin 3 Mg Tablet PO HS@2100 [facility] Methadone HCl 5 mg 10/02/20 22:00 10/03/20 08:36 Methadone 5 Mg Tab PO 5 mg BID@0800,2100 [facility] Administration Metoprolol Tartrate 50 mg 10/03/20 08:00 10/03/20 08:37 Metoprolol Tartrate 50 Mg Tab PO 50 mg BID@0800,1700 [facility] Administration Montelukast Sodium 10 mg 10/03/20 21:00 Montelukast 10 Mg Tab PO HS@2100 [facility] Naloxone HCl 0.2 mg 10/02/20 19:45 Naloxone 0.4 Mg/Ml 1 Ml Vial IV Q2M PRN Opioid Reversal Nitroglycerin 0.4 mg 10/02/20 21:21 Nitroglycerin Sl Tabs 0.4 Mg Tab SUBLINGUAL Q5M PRN Chest Pain Non-Formulary Medication 5 mg 10/03/20 08:00 10/03/20 08:24 Dapagliflozin Propanediol [Farxiga] PO Not Given DAILY@0800 [facility] Nystatin 1 applic 10/02/20 22:00 10/03/20 08:38 Nystatin 100,000unit/Gm Cream 30 Gm Tube TOPICAL 1 applic TID [facility] Administration Protocol Ondansetron HCl 4 mg 10/02/20 21:21 Ondansetron 4 Mg Tab PO Q8H PRN Nausea Pantoprazole Sodium 40 mg 10/03/20 08:00 10/03/20 08:37 Pantoprazole 40 Mg Tablet PO 40 mg BID@0800,1700 [facility] Administration Polyethylene Glycol 17 gm 10/03/20 08:00 10/03/20 08:37 Polyethylene Glycol 3350 17 Gm Powd.Pack PO 17 gm DAILY@0800 [facility] Administration Potassium Chloride 20 meq 10/03/20 08:00 10/03/20 08:37 Potassium Chloride Er 20 Meq Tab.Er PO 20 meq DAILY@0800 [facility] Administration Senna/Docusate Sodium 2 each 10/02/20 23:00 10/03/20 08:36 Sennosides-Docusate Sodium 1 Each Tab PO 2 each BID@0800,1700 [facility] Administration Sertraline HCl 100 mg 10/03/20 08:00 10/03/20 08:37 Sertraline 100 Mg Tab PO 100 mg DAILY@0800 [facility] Administration Simethicone 80 mg 10/03/20 08:00 10/03/20 08:37 Simethicone 80 Mg Chewable PO 80 mg TID@0800,1200,1700 [facility] Administration Sodium Biphosphate/Sodium Phosphate 133 ml 10/03/20 09:00 Na Phos,M-B/Na Phos,Di-Ba 133 Ml Enema RECTAL DAILY PRN Constipation Spironolactone 12.5 mg 10/03/20 09:00 Spironolactone 25 Mg Tab PO DAILY MARCELLE Trazodone HCl 50 mg 10/02/20 21:21 Trazodone Hcl 50 Mg Tab PO HS PRN Insomnia Intake and Output 10/02/20 10/03/20 10/03/20 22:59 06:59 14:59 Intake Total 250 Output Total 300 Balance -50 Intake: Intake, IV Titration 250 Amount Remdesivir 200 mg In 250 Sodium Chloride 0.9% 250 ml @ 250 mls/hr IVPB ONCE ONE Rx#:[id number] Output: Urine 300 Other: # Voids 3 Weight 108.862 kg 10/02/20 16:55 10/03/20 08:00
[2020-10-03 10:19] LABS: Basophils # (A) 0.1 k/uL (0-0.2); Basophils % (A) 3 %; Eosinophils % (A) 0 %; HCT 46.9 % (39.0-53.0); HGB 14.1 gm/dL (13.0-17.5); Hypochromasia Marked; Lymphocytes # (A) 0.5 k/uL (1.0-4.8); Lymphocytes % (A) 15 %; MCHC 30.1 g/dL (31.0-37.0); MCV 96.1 fL (80.0-100.0); Mean Platelet Volume 9.3; Monocytes # (A) 0.4 k/uL (0-1.0); Monocytes % (A) 13 %; Neutrophils # (A) 2.2 k/uL (1.3-7.7); Neutrophils % (A) 67 %; Platelet Count 166 k/uL (150-450); RBC 4.88 m/uL (4.30-5.90); RDW 13.4 % (11.5-15.5); WBC 3.3 k/uL (3.8-10.6)
[2020-10-03] MEDS: SPIRONOLACTONE 25 MG TAB PO SCH (10:49)
[2020-10-03 12:07] LABS: Glucose,Whole Blood 249 mg/dL (75-99)
--- NOTE | 2020-10-03 13:24 | P.CNPUL ---
History of Present Illness Consult date: 10/03/20 Requesting physician: Marylou Anguiano Reason for consult: dyspnea Chief complaint: Shortness of breath, positive COVID History of present illness: This is a very pleasant 80-year-old gentleman who follows with Dr. Anguiano as his primary care provider. He has a history of atrial fibrillation anticoagulated with warfarin, congestive heart failure, coronary artery disease with previous stent placement, iliac stents, diabetes mellitus, hyperlipidemia, hypertension, CVA/TIA he had recently been here following a fall with left ankle strain and then discharged to [facility] for rehabilitation. Yesterday apparently was having some shortness of breath and hypoxemia and tested positive for COVID-19 and was sent here to the emergency room. He has been maintaining O2 saturation 94% and greater on 2 L nasal cannula. Chest x-ray reveals bilateral infiltrates/atelectasis and possible underlying pulmonary fibrosis. CT angiogram ruled out pulmonary embolism. There is cardiomegaly with pleural fl uid and pulmonary infiltrates with some fluid volume overload. 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 White count 3.3. Hemoglobin 14.1. INR 2.9. Sodium 138. Potassium 4.5. Creatinine 0.94. Troponin 0.067, 0.052. ProBNP 9730. Procalcitonin 0.16. LDH 456. C-reactive protein 2.9. Review of Systems REVIEW OF SYSTEMS: CONSTITUTIONAL: Denies any recent significant weight loss or weight gain. EYES: Denies change in vision. EARS, NOSE, MOUTH, THROAT: Denies headaches, denies sore throat. CARDIOVASCULAR: Denies chest pain, palpitations or syncopal episodes. RESPIRATORY: Positive for shortness of breath, no cough, congestion or hemoptysis. GASTROINTESTINAL: Denies change in appetite, denies abdominal pain GENITOURINARY: Denies hematuria, denies infections. MUSKULOSKELETAL: Denies pain, denies swelling. INTEGUMENTARY: Denies rash, denies eczema. NEUROLOGICAL: Denies recent memory loss, no recent seizure activity. PSYCHIATRIC: Denies anxiety, denies depression. HEMATOLOGIC/LYMPHATIC: Denies anemia, denies enlarged lymph nodes. 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 History of Any Multi-Drug Resistant Organisms: None Reported Past Surgical History: Back Surgery, Heart Catheterization With Stent, Or thopedic Surgery, Prostate Surgery Additional Past Surgical History / Comment(s): unsuccessful cardioversion in 2017, endoscopic sinus surgery/polypectomy, colonoscopy, TURP, bilateral hydrocelectomy, rt elbow surgery, toñito cataracts, laminectomy, recent stent placement 08/26/2019 2 cardiac stent, 1 stent ilitac artery Past Anesthesia/Blood Transfusion Reactions: No Reported Reaction Date of Last Stent Placement:: 2019 Past Psychological History: Anxiety, Depression Smoking Status: Never smoker Past Alcohol Use History: None Reported Past Drug Use History: None Reported - Past Family History Mother Family Medical History: No Reported History Father Family Medical History: Cancer Additional Family Medical History / Comment(s): Father had prostrate cancer. Medications and Allergies Home Medications Medication Instructions Recorded Confirmed Type Fluticasone Nasal [place] [Flonase 2 spr EA NOSTRIL DAILY@79910/31/18 10/02/20 History Nasal [place]] Magnesium Oxide [Mag-Ox] 250 mg PO DAILY@169910/31/18 10/02/20 History Montelukast [Singulair] 10 mg PO HS@2100 10/31/18 10/02/20 History Nitroglycerin Sl Tabs [Nitrostat] 0.4 mg SUBLINGUAL Q5M PRN 10/31/18 10/02/20 History Sertraline [Zoloft] 100 mg PO DAILY@79910/31/18 10/02/20 History Sennosides-Docusate Sodium 2 tab PO BID@0800,169909/02/19 10/02/20 History [Senokot-S] Budesonide/Formoterol Fumarate 2 puff INHALATION RT-BID@0800,1700 09/04/20 10/02/20 History [Symbicort 160-4.5 Mcg Inhaler] Furosemide [Lasix] 40 mg PO BID@0800,1700 09/04/20 10/02/20 History Omeprazole [PriLOSEC] 20 mg PO BID@0800,1700 09/04/20 10/02/20 History Warfarin Sodium 4 mg PO SUMOWEFR 09/04/20 10/02/20 History traZODone HCL [Desyrel] 50 mg PO HS PRN 09/04/20 10/02/20 History Acetaminophen Tab [Tylenol] 650 mg PO Q4H PRN 10/02/20 10/02/20 History Albuterol Sulfate [Ventolin HFA] 1 puff INHALATION RT-TID 10/02/20 10/02/20 History Atorvastatin [Lipitor] 40 mg PO HS@2100 10/02/20 10/02/20 History Clopidogrel [Plavix] 75 mg PO DAILY@0800 10/02/20 10/02/20 History Dapagliflozin Propanediol [Farxiga] 5 mg PO DAILY@0800 10/02/20 10/02/20 History Gabapentin [Neurontin] 100 mg PO BID@0800,2100 10/02/20 10/02/20 History INSULIN ASPART (NovoLOG) [NovoLOG 4 unit SQ DAILY@0700 10/02/20 10/02/20 History (formulary)] INSULIN ASPART (NovoLOG) [NovoLOG 6 unit SQ BID@1100,1730 10/02/20 10/02/20 History (formulary)] INSULIN ASPART (NovoLOG) [NovoLOG See Protocol SQ AC-TID 10/02/20 10/02/20 History (formulary)] Insulin Detemir (Levemir) [Levemir] 35 unit SQ HS@2130 10/02/20 10/02/20 History Ipratropium-Albuterol Nebulize 3 ml INHALATION RT-Q6H 10/02/20 10/02/20 History [Duoneb 0.5 mg-3 mg/3 ml Soln] Losartan [Cozaar] 25 mg PO DAILY@0800 10/02/20 10/02/20 History Magnesium Hydroxide [Milk of 2,400 mg PO DAILY PRN 10/02/20 10/02/20 History Magnesia] Melatonin 3 mg PO HS@2100 10/02/20 10/02/20 History Methadone [Dolophine] 5 mg PO BID@0800,2100 10/02/20 10/02/20 History Metoprolol Tartrate [Lopressor] 50 mg PO BID@0800,1700 10/02/20 10/02/20 History Na Phos,M-B/Na Phos,Di-Ba [Fleet 133 ml RECTAL DAILY PRN 10/02/20 10/02/20 History Adult] Nystatin 100,000Unit/gm Cream 1 applic TOPICAL TID 10/02/20 10/02/20 History [Mycostatin Cream] Ondansetron [Zofran] 4 mg PO Q8H PRN 10/02/20 10/02/20 History Polyethylene Glycol 3350 [Miralax] 17 gm PO DAILY@0800 10/02/20 10/02/20 History Potassium Chloride ER [K-Dur 20] 20 meq PO DAILY@0800 10/02/20 10/02/20 History Simethicone 80 mg PO TID@0800,1200,1700 10/02/20 10/02/20 History Warfarin [Coumadin] 3 mg PO TUTHSA 10/02/20 10/02/20 History bisacodyL [Dulcolax] 10 mg RECTAL DAILY PRN 10/02/20 10/02/20 History Allergies Allergy/AdvReac Type Severity Reaction Status Date / Time Sulfa (Sulfonamide Allergy Rash/Hives Verified 10/02/20 16:08 Antibiotics) morphine AdvReac Severe Unknown Verified 10/02/20 16:08 Physical Exam Vitals: Vital Signs Temp Pulse Pulse Resp BP BP Pulse Ox 10/03/20 08:49 98.7 F 119 H 20 147/81 96 10/03/20 02:00 98.1 F 19 127/79 96 10/03/20 01:04 94 L 10/02/20 23:14 18 10/02/20 21:17 107/74 10/02/20 20:06 98.9 F 98 18 129/78 98 10/02/20 17:52 98 18 134/83 99 10/02/20 15:38 99.7 F H 64 18 107/70 99 Intake and Output 10/02/20 10/03/20 10/03/20 22:59 06:59 14:59 Intake Total 250 Output Total 300 Balance -50 Intake: Intake, IV Titration 250 Amount Remdesivir 200 mg In 250 Sodium Chloride 0.9% 250 ml @ 250 mls/hr IVPB ONCE ONE Rx#:[id number] Output: Urine 300 Other: # Voids 3 Weight 108.862 kg GENERAL EXAM: Alert, pleasant 80-year-old gentleman, on 2 L nasal cannula, comfortable in no apparent distress. HEAD: Normocephalic. EYES: Normal reaction of pupils, equal size. NOSE: Clear with pink turbinates. THROAT: No erythema or exudates. NECK: No masses, no JVD. CHEST: No chest wall deformity. LUNGS: Equal air entry with crackles in the posterior bases. CVS: S1 and S2 normal with no audible murmur, regular rhythm. ABDOMEN: No hepatosplenomegaly, normal bowel sounds, no guarding or rigidity. SPINE: No scoliosis or deformity SKIN: No rashes CENTRAL NERVOUS SYSTEM: No focal deficits, tone is normal in all 4 extremities. EXTREMITIES: There is no peripheral edema. No clubbing, no cyanosis. Peripheral pulses are intact. Results - Laboratory Findings CBC and BMP: 10/03/20 08:00 10/03/20 08:00 PT/INR, D-dimer PT 28.2 sec (9.0-12.0) H 10/03/20 08:00 INR 2.9 (<1.2) H 10/03/20 08:00 Abnormal lab findings: Abnormal Labs 10/02/20 10/02/20 10/02/20 16:55 16:55 16:55 WBC MCHC Lymphocytes # 0.3 L PT 38.0 H INR 4.0 H APTT 36.1 H Chloride 94 L Carbon Dioxide 40 H BUN 25 H Glucose 73 L POC Glucose (mg/dL) Calcium 8.2 L Troponin I C-Reactive Protein 2.9 H Total Protein 5.7 L Albumin 2.9 L Procalcitonin 10/02/20 10/02/20 10/03/20 16:55 16:55 07:08 WBC MCHC Lymphocytes # PT INR APTT Chloride Carbon Dioxide BUN Glucose POC Glucose (mg/dL) 214 H Calcium Troponin I 0.067 H* C-Reactive Protein Total Protein Albumin Procalcitonin 0.16 H 10/03/20 10/03/20 10/03/20 08:00 08:00 08:00 WBC 3.3 L MCHC 30.1 L Lymphocytes # 0.5 L PT 28.2 H INR 2.9 H APTT 34.4 H Chloride 93 L Carbon Dioxide 40 H BUN 24 H Glucose 212 H POC Glucose (mg/dL) Calcium Troponin I C-Reactive Protein Total Protein 6.0 L Albumin 3.1 L Procalcitonin 10/03/20 10/03/20 08:00 12:05 WBC MCHC Lymphocytes # PT INR APTT Chloride Carbon Dioxide BUN Glucose POC Glucose (mg/dL) 249 H Calcium Troponin I 0.052 H* C-Reactive Protein Total Protein Albumin Procalcitonin - Diagnostic Findings Chest x-ray: image reviewed Assessment and Plan Assessment: 1 Acute hypoxemic respiratory failure secondary to suspected COVID-19 pneumonia as well as acute exacerbation of systolic congestive heart failure 2 Chronic obstructive pulmonary disease, not oxygen dependent 3 Atrial fibrillation, anticoagulated with warfarin 4 Coronary artery disease with previous stent placement 5 History of CVA with residual right-sided weakness 6 Ischemic cardiomyopathy with ejection fraction 35-40% 7 Diabetes mellitus 8 Recent fall with left ankle strain 9 Hypertension 10 Hyperlipidemia 11 History of depression 12 Chronic pain syndrome 13 Poor overall functional performance based on the above-mentioned multiple comorbidities Plan: The patient was seen and evaluated by Dr. Peterson He has been initiated on Remdesivir Add Decadron Anticoagulated with warfarin Add vitamin supplements Titrate down the FiO2 as tolerated Chest x-ray and inflammatory markers in the a.m. We will continue to follow and make further recommendations based on his clinical status I, the cosigning physician, performed a history & physical examination of the patient. Lungs sounds crackles in the bilateral posterior bases. Maintaining good O2 saturations in the 90s on 2 L/m per nasal cannula. I discussed the assessment and plan of care with my nurse practitioner, Chuyita Williamson. I attest to the above consultation as dictated by her. Time with Patient: Greater than 30
[2020-10-03] MEDS: CHOLECALCIFEROL 25 MCG (1000 IU) TABLET PO SCH (14:14)
[2020-10-03] MEDS: dexAMETHasone 2 MG TAB PO SCH (14:14)
[2020-10-03] MEDS: ZINC SULFATE 220 MG CAP PO SCH (14:14)
[2020-10-03] MEDS: ASCORBIC ACID 500 MG TAB PO SCH (14:14)
[2020-10-03 17:28] LABS: Glucose,Whole Blood 224 mg/dL (75-99)
[2020-10-03] MEDS: MAGNESIUM OXIDE 400 MG TAB PO SCH (18:09)
--- NOTE | 2020-10-03 18:46 | P.HPIM ---
History of Present Illness H&P Date: 10/03/20 Chief Complaint: Dyspnea 80-year-old gentleman who follows with Dr. Anguiano as his primary care provider. He has a history of atrial fibrillation anticoagulated with warfarin, congestive heart failure, coronary artery disease with previous stent placement, iliac stents, diabetes mellitus, hyperlipidemia, hypertension, CVA/TIA he had recently been here following a fall with left ankle strain and then discharged to [facility] for rehabilitation. Yesterday apparently was having some shortness of breath and hypoxemia and tested positive for COVID-19 and was sent here to the emergency room. He has been maintaining O2 saturation 94% and greater on 2 L nasal cannula. Chest x-ray reveals bilateral infiltrates/atelectasis and possible underlying pulmonary fibrosis. CT angiogram ruled out pulmonary embolism. There is cardiomegaly with pleural fluid and pulmonary infiltrates with some fluid volume overload. 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 White count 3.3. Hemoglobin 14.1. INR 2.9. Sodium 138. Potassium 4.5. Creatinine 0.94. Troponin 0.067, 0.052. ProBNP 9730. Procalcitonin 0.16. LDH 456. C- reactive protein 2.9. Review of Systems REVIEW OF SYSTEMS: CONSTITUTIONAL: No fever, no malaise, no fatigue. HEENT: No recent visual problems or hearing problems. Denied any sore throat. CARDIOVASCULAR: No chest pain, orthopnea, PND, no palpitations, no syncope. PULMONARY: No shortness of breath, no cough, no hemoptysis. GASTROINTESTINAL: No diarrhea, no nausea, no vomiting, no abdominal pain. NEUROLOGICAL: No headaches, no weakness, no numbness. HEMATOLOGICAL: Denies any bleeding or petechiae. GENITOURINARY: Denies any burning micturition, frequency, or urgency. MUSCULOSKELETAL/RHEUMATOLOGICAL: Denies any joint pain, swelling, or any muscle pain. ENDOCRINE: Denies any polyuria or polydipsia. The rest of the 14-point review of systems is negative. Past Medical History Past Medical History: Atrial Fibrillation, Asthma, Coronary Artery Disease (CAD), Heart Failure, COPD, CVA/TIA, Diabetes Mellitus, Eye Disorder, Fibromyalgia, GERD/Reflux, Hyperlipidemia, Hypertension, Osteoarthritis (OA), Pneumonia Additional Past Medical History / Comment(s): neuropathy bilateral feet, ischemic cardiomyopathy, 2008 CVA with R sided weaknes upper and lower extremities, uses walker with assistance, bilateral eyes glaucoma, hiatal hernia and gets food "stuck" at times, chronic low back pain, herniated discs, insomni a, 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 History of Any Multi-Drug Resistant Organisms: None Reported Past Surgical History: Back Surgery, Heart Catheterization With Stent, Orthopedic Surgery, Prostate Surgery Additional Past Surgical History / Comment(s): unsuccessful cardioversion in 2017, endoscopic sinus surgery/polypectomy, colonoscopy, TURP, bilateral hydrocelectomy, rt elbow surgery, toñito cataracts, laminectomy, recent stent placement 08/26/2019 2 cardiac stent, 1 stent ilitac artery Past Anesthesia/Blood Transfusion Reactions: No Reported Reaction Date of Last Stent Placement:: 2019 Past Psychological History: Anxiety, Depression Smoking Status: Never smoker Past Alcohol Use History: None Reported Past Drug Use History: None Reported - Past Family History Mother Family Medical History: No Reported History Father Family Medical History: Cancer Additional Family Medical History / Comment(s): Father had prostrate cancer. Medications and Allergies Home Medications Medication Instructions Recorded Confirmed Type Fluticasone Nasal [place] [Flonase 2 spr EA NOSTRIL DAILY@79910/31/18 10/02/20 History Nasal [place]] Magnesium Oxide [Mag-Ox] 250 mg PO DAILY@169910/31/18 10/02/20 History Montelukast [Singulair] 10 mg PO HS@2100 10/31/18 10/02/20 History Nitroglycerin Sl Tabs [Nitrostat] 0.4 mg SUBLINGUAL Q5M PRN 10/31/18 10/02/20 History Sertraline [Zoloft] 100 mg PO DAILY@79910/31/18 10/02/20 History Sennosides-Docusate Sodium 2 tab PO BID@0800,169909/02/19 10/02/20 History [Senokot-S] Budesonide/Formoterol Fumarate 2 puff INHALATION RT-BID@0800,169909/04/20 10/02/20 History [Symbicort 160-4.5 Mcg Inhaler] Furosemide [Lasix] 40 mg PO BID@0800,1700 09/04/20 10/02/20 History Omeprazole [PriLOSEC] 20 mg PO BID@0800,1700 09/04/20 10/02/20 History Warfarin Sodium 4 mg PO SUMOWEFR 09/04/20 10/02/20 History traZODone HCL [Desyrel] 50 mg PO HS PRN 09/04/20 10/02/20 History Acetaminophen Tab [Tylenol] 650 mg PO Q4H PRN 10/02/20 10/02/20 History Albuterol Sulfate [Ventolin HFA] 1 puff INHALATION RT-TID 10/02/20 10/02/20 History Atorvastatin [Lipitor] 40 mg PO HS@209910/02/20 10/02/20 History Clopidogrel [Plavix] 75 mg PO DAILY@0800 10/02/20 10/02/20 History Dapagliflozin Propanediol [Farxiga] 5 mg PO DAILY@0800 10/02/20 10/02/20 History Gabapentin [Neurontin] 100 mg PO BID@0800,2100 10/02/20 10/02/20 History INSULIN ASPART (NovoLOG) [NovoLOG 4 unit SQ DAILY@0700 10/02/20 10/02/20 History (formulary)] INSULIN ASPART (NovoLOG) [NovoLOG 6 unit SQ BID@1100,1730 10/02/20 10/02/20 History (formulary)] INSULIN ASPART (NovoLOG) [NovoLOG See Protocol SQ AC-TID 10/02/20 10/02/20 History (formulary)] Insulin Detemir (Levemir) [Levemir] 35 unit SQ HS@2130 10/02/20 10/02/20 History Ipratropium-Albuterol Nebulize 3 ml INHALATION RT-Q6H 10/02/20 10/02/20 History [Duoneb 0.5 mg-3 mg/3 ml Soln] Losartan [Cozaar] 25 mg PO DAILY@0800 10/02/20 10/02/20 History Magnesium Hydroxide [Milk of 2,400 mg PO DAILY PRN 10/02/20 10/02/20 History Magnesia] Melatonin 3 mg PO HS@209910/02/20 10/02/20 History Methadone [Dolophine] 5 mg PO BID@0800,2100 10/02/20 10/02/20 History Metoprolol Tartrate [Lopressor] 50 mg PO BID@0800,1700 10/02/20 10/02/20 History Na Phos,M-B/Na Phos,Di-Ba [Fleet 133 ml RECTAL DAILY PRN 10/02/20 10/02/20 History Adult] Nystatin 100,000Unit/gm Cream 1 applic TOPICAL TID 10/02/20 10/02/20 History [Mycostatin Cream] Ondansetron [Zofran] 4 mg PO Q8H PRN 10/02/20 10/02/20 History Polyethylene Glycol 3350 [Miralax] 17 gm PO DAILY@0800 10/02/20 10/02/20 History Potassium Chloride ER [K-Dur 20] 20 meq PO DAILY@0800 10/02/20 10/02/20 History Simethicone 80 mg PO TID@0800,1200,1700 10/02/20 10/02/20 History Warfarin [Coumadin] 3 mg PO TUTHSA 10/02/20 10/02/20 History bisacodyL [Dulcolax] 10 mg RECTAL DAILY PRN 10/02/20 10/02/20 History Allergies Allergy/AdvReac Type Severity Reaction Status Date / Time Sulfa (Sulfonamide Allergy Rash/Hives Verified 10/02/20 16:08 Antibiotics) morphine AdvReac Severe Unknown Verified 10/02/20 16:08 Physical Exam Vitals: Vital Signs Temp Pulse Pulse Resp BP BP Pulse Ox 10/03/20 08:49 98.7 F 119 H 20 147/81 96 10/03/20 02:00 98.1 F 19 127/79 96 10/03/20 01:04 94 L 10/02/20 23:14 18 10/02/20 21:17 107/74 10/02/20 20:06 98.9 F 98 18 129/78 98 10/02/20 17:52 98 18 134/83 99 10/02/20 15:38 99.7 F H 64 18 107/70 99 Intake and Output 10/02/20 10/03/20 10/03/20 22:59 06:59 14:59 Intake Total 250 Output Total 300 Balance -50 Intake: Intake, IV Titration 250 Amount Remdesivir 200 mg In 250 Sodium Chloride 0.9% 250 ml @ 250 mls/hr IVPB ONCE ONE Rx#:[id number] Output: Urine 300 Other: # Voids 3 Weight 108.862 kg GENERAL EXAM: Alert, pleasant 80-year-old gentleman, on 2 L nasal cannula, comfortable in no apparent distress. HEAD: Normocephalic. EYES: Normal reaction of pupils, equal size. NOSE: Clear with pink turbinates. THROAT: No erythema or exudates. NECK: No masses, no JVD. CHEST: No chest wall deformity. LUNGS: Equal air entry with crackles in the posterior bases. CVS: S1 and S2 normal with no audible murmur, regular rhythm. ABDOMEN: No hepatosplenomegaly, normal bowel sounds, no guarding or rigidity. SPINE: No scoliosis or deformity SKIN: No rashes CENTRAL NERVOUS SYSTEM: No focal deficits, tone is normal in all 4 extremities. EXTREMITIES: There is no peripheral edema. No clubbing, no cyanosis. Peripheral pulses are intact. Results CBC & Chem 7: 10/03/20 08:00 10/03/20 08:00 Labs: Abnormal Lab Results - Last 24 Hours (Table) 10/02/20 10/02/20 10/02/20 Range/Units 16:55 16:55 16:55 WBC (3.8-10.6) k/uL MCHC (31.0-37.0) g/dL Lymphocytes # 0.3 L (1.0-4.8) k/uL PT 38.0 H (9.0-12.0) sec INR 4.0 H (<1.2) APTT 36.1 H (22.0-30.0) sec Chloride 94 L (98-107) mmol/L Carbon Dioxide 40 H (22-30) mmol/L BUN 25 H (9-20) mg/dL Glucose 73 L (74-99) mg/dL POC Glucose (mg/dL) (75-99) mg/dL Calcium 8.2 L (8.4-10.2) mg/dL Troponin I (0.000-0.034) ng/mL C-Reactive Protein 2.9 H (<1.0) mg/dL Total Protein 5.7 L (6.3-8.2) g/dL Albumin 2.9 L (3.5-5.0) g/dL Procalcitonin (0.02-0.09) ng/mL 10/02/20 10/02/2010/03/21 Range/Units 16:55 16:55 07:08 WBC (3.8-10.6) k/uL MCHC (31.0-37.0) g/dL Lymphocytes # (1.0-4.8) k/uL PT (9.0-12.0) sec INR (<1.2) APTT (22.0-30.0) sec Chloride (98-107) mmol/L Carbon Dioxide (22-30) mmol/L BUN (9-20) mg/dL Glucose (74-99) mg/dL POC Glucose (mg/dL) 214 H (75-99) mg/dL Calcium (8.4-10.2) mg/dL Troponin I 0.067 H* (0.000-0.034) ng/mL C-Reactive Protein (<1.0) mg/dL Total Protein (6.3-8.2) g/dL Albumin (3.5-5.0) g/dL Procalcitonin 0.16 H (0.02-0.09) ng/mL 10/03/20 10/03/20 10/03/20 Range/Units 08:00 08:00 08:00 WBC 3.3 L (3.8-10.6) k/uL MCHC 30.1 L (31.0-37.0) g/dL Lymphocytes # 0.5 L (1.0-4.8) k/uL PT 28.2 H (9.0-12.0) sec INR 2.9 H (<1.2) APTT 34.4 H (22.0-30.0) sec Chloride 93 L (98-107) mmol/L Carbon Dioxide 40 H (22-30) mmol/L BUN 24 H (9-20) mg/dL Glucose 212 H (74-99) mg/dL POC Glucose (mg/dL) (75-99) mg/dL Calcium (8.4-10.2) mg/dL Troponin I (0.000-0.034) ng/mL C-Reactive Protein (<1.0) mg/dL Total Protein 6.0 L (6.3-8.2) g/dL Albumin 3.1 L (3.5-5.0) g/dL Procalcitonin (0.02-0.09) ng/mL 10/03/20 10/03/20 Range/Units 08:00 12:05 WBC (3.8-10.6) k/uL MCHC (31.0-37.0) g/dL Lymphocytes # (1.0-4.8) k/uL PT (9.0-12.0) sec INR (<1.2) APTT (22.0-30.0) sec Chloride (98-107) mmol/L Carbon Dioxide (22-30) mmol/L BUN (9-20) mg/dL Glucose (74-99) mg/dL POC Glucose (mg/dL) 249 H (75-99) mg/dL Calcium (8.4-10.2) mg/dL Troponin I 0.052 H* (0.000-0.034) ng/mL C-Reactive Protein (<1.0) mg/dL Total Protein (6.3-8.2) g/dL Albumin (3.5-5.0) g/dL Procalcitonin (0.02-0.09) ng/mL Thrombosis Risk Factor Assmnt - Choose All That Apply Any of the Below Risk Factors Present?: Yes Each Factor Represents 1 point: Medical pt on bed rest Other Risk Factors: Yes Each Risk Factor Represents 3 Points: Age 75 years or older Thrombosis Risk Factor Assessment Total Risk Factor Score: 4 Thrombosis Risk Factor Assessment Level: Moderate Risk Assessment and Plan Assessment: 1. Acute hypoxemic respiratory failure secondary to suspected COVID-19 pneumonia as well as acute exacerbation of systolic congestive heart failure - Pulmonary service on board and patient has been initiated on Remdesivir; Decadron 6 mg IV daily; anticoagulation with Coumadin; vitamin supplementation with vitamin D and C is admitted - Trend inflammatory markers 2. Chronic obstructive pulmonary disease, not oxygen dependent; continue with home inhaler therapy 3. Atrial fibrillation, anticoagulated with warfarin; patient remains rate controlled on metoprolol, 50 mg by mouth twice a day 4. Coronary artery disease/ischemic cardiomyopathy with previous stent placement; EF 35-40% 5. History of CVA with residual right-sided weakness 6. Diabetes mellitus; monitor Accu-Cheks every 6 hours as with insulin sliding scale 7. Hypertension; metoprolol 50 mg by mouth twice a day; losartan 25 mg daily 8. Hyperlipidemia; Lipitor 40 mg by mouth daily at bedtime 9. History of depression; Zoloft 100 mg daily along with trazodone 50mg po QHS DVT prophylaxis SCDs/anticoagulation with Coumadin CODE STATUS; full code
[2020-10-03 20:05] LABS: Glucose,Whole Blood 298 mg/dL (75-99)
[2020-10-03] MEDS: ATORVASTATIN 40 MG TAB PO SCH (21:33)
[2020-10-03] MEDS: MELATONIN 3 MG TABLET PO SCH (21:34)
[2020-10-03] MEDS: MONTELUKAST 10 MG TAB PO SCH (21:38)
[2020-10-03] MEDS: INSULIN DETEMIR (LEVEMIR) 100 UNIT/ML SYR SQ SCH (21:38)
[2020-10-03] MEDS: REMDESIVIR 100 MG in SODIUM CHLORIDE 0.9% 250 ML IVPB SCH (21:38)
[2020-10-04] MEDS ORDERED: VANCOMYCIN IV PER PHARMACY 1 EACH MISC MISCELLANE PRN (01:25)
[2020-10-04] MEDS ORDERED: VANCOMYCIN 1,500 MG in SODIUM CHLORIDE 0.9% 250 ML IVPB ONE (02:00)
[2020-10-04 06:58] LABS: Glucose,Whole Blood 209 mg/dL (75-99)
[2020-10-04] MEDS: ALBUTEROL HFA INHALER INHALATION SCH ×3 (08:28→21:38)
[2020-10-04] MEDS: SYMBICORT 160-4.5 MCG INHALER INHALATION SCH ×2 (08:28→21:38)
[2020-10-04] MEDS: ZINC SULFATE 220 MG CAP PO SCH (08:46)
[2020-10-04] MEDS: GABAPENTIN 100 MG CAP PO SCH ×2 (08:46→20:56)
[2020-10-04] MEDS: polyethylene glycoL 3350 17 GM POWD.PACK PO SCH (08:46)
[2020-10-04] MEDS: ASCORBIC ACID 500 MG TAB PO SCH (08:46)
[2020-10-04] MEDS: SPIRONOLACTONE 25 MG TAB PO SCH (08:46)
[2020-10-04] MEDS: MAGNESIUM HYDROXIDE 2,400 MG/10 ML CUP PO PRN (08:46)
[2020-10-04] MEDS: SENNOSIDES-DOCUSATE SODIUM 1 EACH TAB PO SCH ×2 (08:46→17:32)
[2020-10-04] MEDS: METOPROLOL TARTRATE 50 MG TAB PO SCH ×2 (08:46→17:28)
[2020-10-04] MEDS: METHADONE 5 MG TAB PO SCH ×2 (08:47→20:56)
[2020-10-04] MEDS: SERTRALINE 100 MG TAB PO SCH (08:47)
[2020-10-04] MEDS: POTASSIUM CHLORIDE ER 20 MEQ TAB.ER PO SCH (08:47)
[2020-10-04] MEDS: dexAMETHasone 2 MG TAB PO SCH (08:47)
[2020-10-04] MEDS: CLOPIDOGREL 75 MG TAB PO SCH (08:47)
[2020-10-04] MEDS: LOSARTAN 25 MG TAB PO SCH (08:47)
[2020-10-04] MEDS: PANTOPRAZOLE 40 MG TABLET PO SCH ×2 (08:47→17:33)
[2020-10-04] MEDS: INSULIN ASPART (NovoLOG) 100 UNIT/ML VIAL SQ SCH ×6 (08:47→17:29)
[2020-10-04] MEDS: CHOLECALCIFEROL 25 MCG (1000 IU) TABLET PO SCH (08:47)
[2020-10-04] MEDS: FUROSEMIDE 40 MG TAB PO SCH ×2 (08:47→17:28)
[2020-10-04] MEDS: SIMETHICONE 80 MG CHEWABLE PO SCH ×3 (08:48→17:29)
[2020-10-04] MEDS: NYSTATIN 100,000UNIT/GM CREAM 30 GM TUBE TOPICAL SCH ×3 (08:51→20:57)
[2020-10-04] MEDS: NON FORMULARY DRUG (Dapagliflozin Propanediol [Farxiga] 5 MG Tablet) PO SCH (08:52)
[2020-10-04] MEDS: FLUTICASONE 50MCG/SPRAY NASAL 16GM EA NOSTRIL SCH (08:52)
--- NOTE | 2020-10-04 09:16 | XR ---
EXAMINATION TYPE: XR chest 1V portable DATE OF EXAM: 10/04/2020 COMPARISON: 10/02/2020 INDICATION: Covid TECHNIQUE: Single frontal view of the chest is obtained. FINDINGS: The heart size is normal. The pulmonary vasculature is normal. Scattered peripheral infiltrates are present developing from comparison. Findings can be compatible w ith the tip pneumonia. IMPRESSION: 1. Peripheral scattered infiltrates can be compatible with atypical pneumonia.
[2020-10-04] MEDS ORDERED: ENOXAPARIN 40 MG/0.4 ML SYRINGE SQ SCH (09:30)
[2020-10-04 11:27] LABS: Glucose,Whole Blood 249 mg/dL (75-99)
[2020-10-04 12:12] LABS: C Reactive Protein 2.4 mg/dL (0.0-0.8)
[2020-10-04] MEDS: VANCOMYCIN 1,750 MG in SODIUM CHLORIDE 0.9% 500 ML 500 ML IVPB SCH (13:04)
--- NOTE | 2020-10-04 13:19 | P.PN ---
Subjective Progress Note Date: 10/04/20 Principal diagnosis: Shortness of breath, Covid 19 pneumonia This is a very pleasant 80-year-old gentleman who follows with Dr. Anguiano as his primary care provider. He has a history of atrial fibrillation anticoagulated with warfarin, congestive heart failure, coronary artery disease with previous stent placement, iliac stents, diabetes mellitus, hyperlipidemia, hypertension, CVA/TIA he had recently been here following a fall with left ankle strain and then discharged to [facility] for rehabilitation. Yesterday apparently was having some shortness of breath and hypoxemia and tested positive for COVID-19 and was sent here to the emergency room. He has been maintaining O2 saturation 94% and greater on 2 L nasal cannula. Chest x-ray reveals bilateral infiltrates/atelectasis and possible underlying pulmonary fibrosis. CT angiogram ruled out pulmonary embolism. There is cardiomegaly with pleural fluid and pulmonary infiltrates with some fluid volume overload. 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 White count 3.3. Hemoglobin 14.1. INR 2.9. Sodium 138. Potassium 4.5. Creatinine 0.94. Troponin 0.067, 0.052. ProBNP 9730. Procalcitonin 0.16. LDH 456. C-reactive protein 2.9. On 10/04/2020 patient seen in follow-up on medical surgical floor. He is comfo rtable, he is currently on 2 L of oxygen his pulse ox is 95%, he is resting comfortably in bed, he denies any worsening dyspnea, cough, no chest discomfort. Today is day 2 of Remdesivir, he also remains on Decadron 6 mg daily, prophylactic dose of Lovenox 40 mg daily. He is on multiple medications for his multiple chronic medical conditions. His follow-up chest x-ray today shows peripheral scattered infiltrates. It appears that he takes Coumadin for his history of A. fib, we don't have INR from today, his last INR from her yesterday was 2.9. His d-dimer was low at less than 0.17. White count was 3.3, hemoglobin was 14.1. His CO2 was 40, B1 is 24 creatinine was 0.94, and he did have a mild troponin leak, his proBNP was also noted to be quite elevated at 9730, his pro-calcitonin level was negative at 0.16. Blood culture from 10/02/2020 showed Staphylococcus epidermidis, likely contaminant, patient is currently on vancomycin. 10 denies any chest discomfort, no nausea vomiting or diarrhea. Objective - Vital Signs Vital signs: Vital Signs Temp 98.2 F 10/04/20 10:00 Pulse 78 10/04/20 10:00 Resp 18 10/04/20 10:00 BP 135/84 10/04/20 10:00 Pulse Ox 95 10/04/20 10:00 Intake & Output 10/03/20 10/04/20 10/04/20 18:59 06:59 18:59 Output Total 825 400 Balance -825 -400 Output: Urine 825 400 Other: # Voids 1 1 - Exam GENERAL EXAM: Alert, very pleasant, 80-year-old white male, currently on 2 L of oxygen pulse ox of 95%, comfortable in no apparent distress. HEAD: Normocephalic/atraumatic. EYES: Normal reaction of pupils, equal size. Conjunctiva pink, sclera white. NOSE: Clear with pink turbinates. THROAT: No erythema or exudates. NECK: No masses, no JVD, no thyroid enlargement, no adenopathy. CHEST: No chest wall deformity. Symmetrical expansion. LUNGS: Equal air entry with no crackles, wheeze, rhonchi or dullness. CVS: Regular rate and rhythm, normal S1 and S2, no gallops, no murmurs, no rubs ABDOMEN: Soft, nontender. No hepatosplenomegaly, normal bowel sounds, no guarding or rigidity. EXTREMITIES: No clubbing, no edema, no cyanosis, 2+ pulses and upper and lower extremities. MUSCULOSKELETAL: Muscle strength and tone normal. SPINE: No scoliosis or deformity SKIN: No rashes CENTRAL NERVOUS SYSTEM: Alert and oriented -3. No focal deficits, tone is normal in all 4 extremities. PSYCHIATRIC: Alert and oriented -3. Appropriate affect. Intact judgment and insight. - Labs CBC & Chem 7: 10/03/20 08:00 10/03/20 08:00 Labs: Abnormal Lab Results - Last 24 Hours (Table) 10/03/20 10/03/20 10/04/20 Range/Units 17:27 19:43 06:06 POC Glucose (mg/dL) 224 H 298 H (75-99) mg/dL C-Reactive Protein 2.4 H (0.0-0.8) mg/dL 10/04/20 10/04/20 Range/Units 06:56 11:25 POC Glucose (mg/dL) 209 H 249 H (75-99) mg/dL C-Reactive Protein (0.0-0.8) mg/dL Microbiology - Last 24 Hours (Table) 10/02/20 16:55 Blood Culture Gram Stain - Preliminary Blood Blood Culture - Preliminary Staphylococcus epidermidis 10/02/20 16:55 Blood Culture - Final Blood 10/02/20 16:55 Blood Culture - Preliminary Blood No Growth after 24 hours Assessment and Plan Plan: Assessment: #1. Acute hypoxic respiratory failure secondary to acute exacerbation of systolic CHF, and COVID-19 pneumonia. Patient was diagnosed at [facility], started on Remdesivir treatment on 10/03/2020 #2. History of COPD, not usually oxygen dependent #3. Chronic atrial fibrillation, on Coumadin #4. Coronary artery disease with previous stent placement #5. History of CVA with residual right-sided weakness #6. Ischemic cardiomyopathy with ejection fraction of 35-40% #7. Diabetes multiple starting #8. Recent fall with left ankle sprain #9. Hypertension #10. Hyperlipidemia #11. History of depression #12. Chronic pain syndrome #13. Poor overall functional performance Plan: Continue Remdesivir, today's day 2 of treatment Continue Decadron We added Lovenox, however we realized the patient should be on Coumadin Obtain PT/INR, pharmacy to dose his Coumadin Continue titrating FiO2 Monitor for any worsening hypoxia or dyspnea We'll continue to follow I performed a history & physical examination of the patient and discussed their management with my nurse practitioner, Tiffany Clements. I reviewed the nurse practitioner's note and agree with the documented findings and plan of care. Lung sounds are positive for diminished breath sounds.. The findings and the impression was discussed with the patient. I attest to the documentation by the nurse practitioner. Time with Patient: Less than 30
[2020-10-04 14:18] LABS: INR 1.8 (<1.2); Prothrombin Time 17.8 sec (9.0-12.0)
[2020-10-04 17:19] LABS: Glucose,Whole Blood 353 mg/dL (75-99)
[2020-10-04] MEDS: MAGNESIUM OXIDE 400 MG TAB PO SCH (17:28)
[2020-10-04] MEDS ORDERED: WARFARIN 2 MG TAB PO ONE (18:00)
--- NOTE | 2020-10-04 18:50 | P.PN ---
Subjective Progress Note Date: 10/04/20 Principal diagnosis: Acute hypoxic respiratory failure Acute exacerbation systolic CHF COVID-19 pneumonia 80-year-old gentleman who follows with Dr. Anguiano as his primary care provider. He has a history of atrial fibrillation anticoagulated with warfarin, congestive heart failure, coronary artery disease with previous stent placement, iliac stents, diabetes mellitus, hyperlipidemia, hypertension, CVA/TIA he had recently been here following a fall with left ankle strain and then discharged to [facility] for rehabilitation. Yesterday apparently was having some shortness of breath and hypoxemia and tested positive for COVID-19 and was sent here to the emergency room. He has been maintaining O2 saturation 94% and greater on 2 L nasal cannula. Chest x-ray reveals bilateral infiltrates/atelectasis and possible underlying pulmonary fibrosis. CT angiogram ruled out pulmonary embolism. There is cardiomegaly with pleural fluid and pulmonary infiltrates with some fluid volume overload. 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 White count 3.3. Hemoglobin 14.1. INR 2.9. Sodium 138. Potassium 4.5. Creatinine 0.94. Troponin 0.067, 0.052. ProBNP 9730. Procalcitonin 0.16. LDH 456. C- reactive protein 2.9. 10/04/2020 Patient is seen and evaluated resting comfortably in bed; currently on 2 L of O2 per nasal cannula with O2 saturation above 92% Vital signs are reviewed temperature 98.2, pulse 78, respiration 18 and blood pressure 135/84 Lab review shows a d-dimer of 0.17, WBC 3.3, hemoglobin 14.1, BUN/creatinine of 24/0.94 with elevated BNP of 9730, pro-calcitonin 0.16; blood cultures positive for staph epidermidis; patient is currently on IV vancomycin Patient remains on REM, Decadron 6 mg and Lovenox 40 mg daily Pulmonary on board and recommending to continue to titrate FiO2 down keeping O2 saturation greater than 92% Objective - Vital Signs Vital signs: Vital Signs Temp 98.2 F 10/04/20 10:00 Pulse 78 10/04/20 10:00 Resp 18 10/04/20 10:00 BP 135/84 10/04/20 10:00 Pulse Ox 95 10/04/20 10:00 Intake & Output 10/03/20 10/04/20 10/04/20 18:59 06:59 18:59 Output Total 825 400 Balance -825 -400 Output: Urine 825 400 Other: # Voids 1 1 - Exam PHYSICAL EXAMINATION: GENERAL: The patient is alert and oriented x3, not in any acute distress. Well developed, well nourished. HEENT: Pupils are round and equally reacting to light. EOMI. No scleral icterus. No conjunctival pallor. Normocephalic, atraumatic. No pharyngeal erythema. No thyromegaly. CARDIOVASCULAR: S1 and S2 present. No murmurs, rubs, or gallops. PULMONARY: Chest is clear to auscultation, no wheezing or crackles. ABDOMEN: Soft, nontender, nondistended, normoactive bowel sounds. No palpable organomegaly. MUSCULOSKELETAL: No joint swelling or deformity. EXTREMITIES: No cyanosis, clubbing, or pedal edema. NEUROLOGICAL: Gross neurological examination did not reveal any focal deficits. SKIN: No rashes. - Labs CBC & Chem 7: 10/03/20 08:00 10/03/20 08:00 Labs: Abnormal Lab Results - Last 24 Hours (Table) 10/03/20 10/03/20 10/04/20 Range/Units 17:27 19:43 06:06 POC Glucose (mg/dL) 224 H 298 H (75-99) mg/dL C-Reactive Protein 2.4 H (0.0-0.8) mg/dL 10/04/20 10/04/20 Range/Units 06:56 11:25 POC Glucose (mg/dL) 209 H 249 H (75-99) mg/dL C-Reactive Protein (0.0-0.8) mg/dL Microbiology - Last 24 Hours (Table) 10/02/20 16:55 Blood Culture Gram Stain - Preliminary Blood Blood Culture - Preliminary Staphylococcus epidermidis 10/02/20 16:55 Blood Culture - Final Blood 10/02/20 16:55 Blood Culture - Preliminary Blood No Growth after 24 hours Assessment and Plan Assessment: 1. Acute hypoxemic respiratory failure secondary to suspected COVID-19 pneumonia as well as acute exacerbation of systolic congestive heart failure - Pulmonary service on board and patient has been initiated on Remdesivir; Decadron 6 mg IV daily; anticoagulation with Coumadin; vitamin supplementation with vitamin D and C is admitted - Trend inflammatory markers 2. Chronic obstructive pulmonary disease, not oxygen dependent; continue with home inhaler therapy 3. Atrial fibrillation, anticoagulated with warfarin; patient remains rate controlled on metoprolol, 50 mg by mouth twice a day 4. Coronary artery disease/ischemic cardiomyopathy with previous stent placement; EF 35-40% 5. History of CVA with residual right-sided weakness 6. Diabetes mellitus; monitor Accu-Cheks every 6 hours as with insulin sliding scale 7. Hypertension; metoprolol 50 mg by mouth twice a day; losartan 25 mg daily 8. Hyperlipidemia; Lipitor 40 mg by mouth daily at bedtime 9. History of depression; Zoloft 100 mg daily along with trazodone 50mg po QHS DVT prophylaxis SCDs/anticoagulation with Coumadin CODE STATUS; full code
[2020-10-04 20:51] LABS: Glucose,Whole Blood 265 mg/dL (75-99)
[2020-10-04] MEDS: MELATONIN 3 MG TABLET PO SCH (20:56)
[2020-10-04] MEDS: MONTELUKAST 10 MG TAB PO SCH (20:56)
[2020-10-04] MEDS: ATORVASTATIN 40 MG TAB PO SCH (20:56)
[2020-10-04] MEDS: INSULIN DETEMIR (LEVEMIR) 100 UNIT/ML SYR SQ SCH (20:57)
[2020-10-05] MEDS: VANCOMYCIN 1,750 MG in SODIUM CHLORIDE 0.9% 500 ML 500 ML IVPB SCH (02:25)
[2020-10-05] MEDS: REMDESIVIR 100 MG in SODIUM CHLORIDE 0.9% 250 ML IVPB SCH ×2 (06:46→21:53)
[2020-10-05 07:01] LABS: Glucose,Whole Blood 127 mg/dL (75-99)
[2020-10-05 08:08] LABS: African American GFR (CKD) 87 (>60 ml/min/1.73 sqM); Anion Gap 4 mmol/L; Blood Urea Nitrogen 30 mg/dL (9-20); Calcium 8.2 mg/dL (8.4-10.2); Carbon Dioxide 38 mmol/L (22-30); Chloride 92 mmol/L (98-107); Glucose 122 mg/dL (74-99); Non-African American GFR(CKD) 75 (>60 ml/min/1.73 sqM); Potassium 4.4 mmol/L (3.5-5.1); Sodium 134 mmol/L (137-145)
[2020-10-05] MEDS: ALBUTEROL HFA INHALER INHALATION SCH ×3 (08:53→20:26)
[2020-10-05] MEDS: SYMBICORT 160-4.5 MCG INHALER INHALATION SCH ×2 (08:54→15:52)
[2020-10-05] MEDS: NON FORMULARY DRUG (Dapagliflozin Propanediol [Farxiga] 5 MG Tablet) PO SCH (09:06)
[2020-10-05] MEDS: POTASSIUM CHLORIDE ER 20 MEQ TAB.ER PO SCH (09:07)
[2020-10-05] MEDS: METOPROLOL TARTRATE 50 MG TAB PO SCH ×2 (09:08→18:02)
[2020-10-05] MEDS: SPIRONOLACTONE 25 MG TAB PO SCH (09:08)
[2020-10-05] MEDS: CHOLECALCIFEROL 25 MCG (1000 IU) TABLET PO SCH (09:08)
[2020-10-05] MEDS: ZINC SULFATE 220 MG CAP PO SCH (09:08)
[2020-10-05] MEDS: ASCORBIC ACID 500 MG TAB PO SCH (09:08)
[2020-10-05] MEDS: SENNOSIDES-DOCUSATE SODIUM 1 EACH TAB PO SCH ×2 (09:09→18:02)
[2020-10-05] MEDS: CLOPIDOGREL 75 MG TAB PO SCH (09:09)
[2020-10-05] MEDS: PANTOPRAZOLE 40 MG TABLET PO SCH ×2 (09:09→18:02)
[2020-10-05] MEDS: SIMETHICONE 80 MG CHEWABLE PO SCH ×3 (09:12→18:02)
[2020-10-05] MEDS: NYSTATIN 100,000UNIT/GM CREAM 30 GM TUBE TOPICAL SCH ×3 (09:15→21:52)
[2020-10-05] MEDS: SERTRALINE 100 MG TAB PO SCH (09:15)
[2020-10-05] MEDS: dexAMETHasone 2 MG TAB PO SCH (09:15)
[2020-10-05] MEDS: polyethylene glycoL 3350 17 GM POWD.PACK PO SCH (09:15)
[2020-10-05] MEDS: INSULIN ASPART (NovoLOG) 100 UNIT/ML VIAL SQ SCH ×6 (09:16→18:01)
[2020-10-05] MEDS: METHADONE 5 MG TAB PO SCH ×2 (09:16→21:50)
[2020-10-05] MEDS: FUROSEMIDE 40 MG TAB PO SCH ×2 (09:16→18:03)
[2020-10-05] MEDS: FLUTICASONE 50MCG/SPRAY NASAL 16GM EA NOSTRIL SCH (09:16)
[2020-10-05] MEDS: GABAPENTIN 100 MG CAP PO SCH ×2 (09:16→21:52)
[2020-10-05] MEDS: LOSARTAN 25 MG TAB PO SCH (09:16)
[2020-10-05 11:15] LABS: Glucose,Whole Blood 195 mg/dL (75-99)
[2020-10-05 11:30] LABS: INR 1.25 (0.90-1.11); Prothrombin Time 13.4 sec (9.9-11.9)
--- NOTE | 2020-10-05 12:14 | P.PN ---
Subjective Progress Note Date: 10/05/20 Principal diagnosis: Shortness of breath, Covid 19 pneumonia This is a very pleasant 80-year-old gentleman who follows with Dr. Anguiano as his primary care provider. He has a history of atrial fibrillation anticoagulated with warfarin, congestive heart failure, coronary artery disease with previous stent placement, iliac stents, diabetes mellitus, hyperlipidemia, hypertension, CVA/TIA he had recently been here following a fall with left ankle strain and then discharged to [facility] for rehabilitation. Yesterday apparently was having some shortness of breath and hypoxemia and tested positive for COVID-19 and was sent here to the emergency room. He has been maintaining O2 saturation 94% and greater on 2 L nasal cannula. Chest x-ray reveals bilateral infiltrates/atelectasis and possible underlying pulmonary fibrosis. CT angiogram ruled out pulmonary embolism. There is cardiomegaly with pleural fluid and pulmonary infiltrates with some fluid volume overload. 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 White count 3.3. Hemoglobin 14.1. INR 2.9. Sodium 138. Potassium 4.5. Creatinine 0.94. Troponin 0.067, 0.052. ProBNP 9730. Procalcitonin 0.16. LDH 456. C-reactive protein 2.9. On 10/04/2020 patient seen in follow-up on medical surgical floor. He is comfo rtable, he is currently on 2 L of oxygen his pulse ox is 95%, he is resting comfortably in bed, he denies any worsening dyspnea, cough, no chest discomfort. Today is day 2 of Remdesivir, he also remains on Decadron 6 mg daily, prophylactic dose of Lovenox 40 mg daily. He is on multiple medications for his multiple chronic medical conditions. His follow-up chest x-ray today shows peripheral scattered infiltrates. It appears that he takes Coumadin for his history of A. fib, we don't have INR from today, his last INR from her yesterday was 2.9. His d-dimer was low at less than 0.17. White count was 3.3, hemoglobin was 14.1. His CO2 was 40, B1 is 24 creatinine was 0.94, and he did have a mild troponin leak, his proBNP was also noted to be quite elevated at 9730, his pro-calcitonin level was negative at 0.16. Blood culture from 10/02/2020 showed Staphylococcus epidermidis, likely contaminant, patient is currently on vancomycin. 10 denies any chest discomfort, no nausea vomiting or diarrhea. On 10/05/2020 patient seen in follow-up on medical surgical floor. He is resting comfortably in bed, presented to liters of oxygen pulse ox is 95-96%, afebrile, hemodynamically stable, lung sounds reveal diminished breath sounds with bibasilar crackles, remains on oral Lasix, he is also on oral Decadron, nebulized bronchodilators. Patient is supposed to get his third Remdesivir treatment today. He is waiting on the midline IV placement. His INR today is 1.25, and pharmacy is dosing his warfarin. From [place]ira pneumonia perspective his oxygenation has not worsened. He seems to be fairly stable, in no acute respiratory distress, his sodium today is 134, potassium is 4.4, cl 92, CO2 30, B1 is 30 creatinine 0.97. Objective - Vital Signs Vital signs: Vital Signs Temp 98.7 F 10/05/20 09:36 Pulse 90 10/05/20 09:36 Resp 19 10/05/20 09:36 BP 138/92 10/05/20 09:36 Pulse Ox 95 10/05/20 09:36 Intake & Output 10/04/20 10/05/20 10/05/20 18:59 06:59 18:59 Output Total 400 300 Balance -400 -300 Output: Urine 400 300 Other: # Voids 1 3 # Bowel Movements 3 - Exam GENERAL EXAM: Alert, very pleasant, 80-year-old white male, currently on 2 L of oxygen pulse ox of 95%, comfortable in no apparent distress. HEAD: Normocephalic/atraumatic. EYES: Normal reaction of pupils, equal size. Conjunctiva pink, sclera white. NOSE: Clear with pink turbinates. THROAT: No erythema or exudates. NECK: No masses, no JVD, no thyroid enlargement, no adenopathy. CHEST: No chest wall deformity. Symmetrical expansion. LUNGS: Equal air entry with no crackles, wheeze, rhonchi or dullness. CVS: Regular rate and rhythm, normal S1 and S2, no gallops, no murmurs, no rubs ABDOMEN: Soft, nontender. No hepatosplenomegaly, normal bowel sounds, no guarding or rigidity. EXTREMITIES: No clubbing, no edema, no cyanosis, 2+ pulses and upper and lower extremities. MUSCULOSKELETAL: Muscle strength and tone normal. SPINE: No scoliosis or deformity SKIN: No rashes CENTRAL NERVOUS SYSTEM: Alert and oriented -3. No focal deficits, tone is normal in all 4 extremities. PSYCHIATRIC: Alert and oriented -3. Appropriate affect. Intact judgment and insight. - Labs CBC & Chem 7: 10/03/20 08:00 10/05/20 06:58 Labs: Abnormal Lab Results - Last 24 Hours (Table) 10/04/20 10/04/20 10/04/20 Range/Units 06:06 06:06 17:18 PT 17.8 H (9.0-12.0) sec INR 1.8 H (<1.2) Sodium (137-145) mmol/L Chloride (98-107) mmol/L Carbon Dioxide (22-30) mmol/L BUN (9-20) mg/dL Glucose (74-99) mg/dL POC Glucose (mg/dL) 353 H (75-99) mg/dL Calcium (8.4-10.2) mg/dL C-Reactive Protein 2.4 H (0.0-0.8) mg/dL 10/04/20 10/05/20 10/05/20 Range/Units 20:48 06:58 06:58 PT 13.4 H (9.0-12.0) sec INR 1.25 H (<1.2) Sodium 134 L (137-145) mmol/L Chloride 92 L (98-107) mmol/L Carbon Dioxide 38 H (22-30) mmol/L BUN 30 H (9-20) mg/dL Glucose 122 H (74-99) mg/dL POC Glucose (mg/dL) 265 H (75-99) mg/dL Calcium 8.2 L (8.4-10.2) mg/dL C-Reactive Protein (0.0-0.8) mg/dL 10/05/20 10/05/20 Range/Units 06:59 11:14 PT (9.0-12.0) sec INR (<1.2) Sodium (137-145) mmol/L Chloride (98-107) mmol/L Carbon Dioxide (22-30) mmol/L BUN (9-20) mg/dL Glucose (74-99) mg/dL POC Glucose (mg/dL) 127 H 195 H (75-99) mg/dL Calcium (8.4-10.2) mg/dL C-Reactive Protein (0.0-0.8) mg/dL Microbiology - Last 24 Hours (Table) 10/02/20 16:55 Blood Culture - Preliminary Blood No Growth after 48 hours 10/02/20 16:55 Blood Culture Gram Stain - Preliminary Blood Blood Culture - Preliminary Staphylococcus epidermidis Assessment and Plan Plan: Assessment: #1. Acute hypoxic respiratory failure secondary to acute exacerbation of systolic CHF, and COVID-19 pneumonia. Patient was diagnosed at [facility], started on Remdesivir treatment on 10/03/2020 #2. History of COPD, not usually oxygen dependent #3. Chronic atrial fibrillation, on Coumadin #4. Coronary artery disease with previous stent placement #5. History of CVA with residual right-sided weakness #6. Ischemic cardiomyopathy with ejection fraction of 35-40% #7. Diabetes multiple starting #8. Recent fall with left ankle sprain #9. Hypertension #10. Hyperlipidemia #11. History of depression #12. Chronic pain syndrome #13. Poor overall functional performance Plan: Continue Remdesivir, today's day 3 of treatment Continue Decadron Patient is maintaining stable O2 saturations on minimal supplemental oxygen Continue oral diuretics Continue bronchodilators May consider for discharge back to [facility] in the next 24-48 hours if remains stable I performed a history & physical examination of the patient and discussed their management with my nurse practitioner, Tiffany Clements. I reviewed the nurse practitioner's note and agree with the documented findings and plan of care. Lung sounds are positive for diminished breath sounds.. The findings and the impression was discussed with the patient. I attest to the documentation by the nurse practitioner. Time with Patient: Less than 30
--- NOTE | 2020-10-05 13:20 | P.PN ---
Subjective Progress Note Date: 10/05/20 80-year-old gentleman who follows with Dr. Anguiano as his primary care provider. He has a history of atrial fibrillation anticoagulated with warfarin, congestive heart failure, coronary artery disease with previous stent placement, iliac stents, diabetes mellitus, hyperlipidemia, hypertension, CVA/TIA he had recently been here following a fall with left ankle strain and then discharged to [facility] for rehabilitation. Yesterday apparently was having some shortness of breath and hypoxemia and tested positive for COVID-19 and was sent here to the emergency room. He has been maintaining O2 saturation 94% and greater on 2 L nasal cannula. Chest x-ray reveals bilateral infiltrates/atelectasis and possible underlying pulmonary fibrosis. CT angiogram ruled out pulmonary embolism. There is cardiomegaly with pleural fluid and pulmonary infiltrates with some fluid volume overload. 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 White count 3.3. Hemoglobin 14.1. INR 2.9. Sodium 138. Potassium 4.5. Creatinine 0.94. Troponin 0.067, 0.052. ProBNP 9730. Procalcitonin 0.16. LDH 456. C- reactive protein 2.9. 10/04/2020 Patient is seen and evaluated resting comfortably in bed; currently on 2 L of O2 per nasal cannula with O2 saturation above 92% Vital signs are reviewed temperature 98.2, pulse 78, respiration 18 and blood pressure 135/84 Lab review shows a d-dimer of 0.17, WBC 3.3, hemoglobin 14.1, BUN/creatinine of 24/0.94 with elevated BNP of 9730, pro-calcitonin 0.16; blood cultures positive for staph epidermidis; patient is currently on IV vancomycin Patient remains on REM, Decadron 6 mg and Lovenox 40 mg daily Pulmonary on board and recommending to continue to titrate FiO2 down keeping O2 saturation greater than 92% 10/05: Patient has been afebrile, heart rate 75, blood pressure 109/63, pulse ox 96% on 2 L nasal cannula. Repeat blood work reveals INR 1.25. Pharmacy is dosing Coumadin. Sodium 134, potassium 4.4, chloride 92, CO2 38, BUN 30 and creatinine 0.97. Blood sugars are running between 127 and 353. Blood culture is Staphylococcus epidermidis most likely contamination. Patient is stating that his breathing status seems to be improving. He is currently on 2 L nasal cannula. Patient is on Remdesivir day #3/5 and patient is continued on oral Decadron. Discharge plan is to return to [facility] complete his course of subacute rehab. Most likely he will be ready in 48 hours. Midline has been ordered for IV access. Review Of Systems: Constitutional: No fever, no chills, no night sweats. No weight change. No w eakness, fatigue or lethargy. No daytime sleepiness. EENT: No headache. No blurred vision or double vision, no loss of vision. No loss of Hearing, no ringing in the ears, no dizziness. No nasal drainage or congestion. No epistaxis. No sore throat. Lungs: Reports shortness of breath improving, cough, no sputum production. No wheezing. Cardiovascular: No chest pain, no lower extremity edema. No palpitations. No paroxysmal nocturnal dyspnea. No orthopnea. No lightheadedness or dizziness. No syncopal episodes. Abdominal: No abdominal pain. No nausea, vomiting. No diarrhea. No consti pation. No bloody or tarry stools.. No loss of appetite. Genitourinary: No dysuria, increased frequency, urgency. No urinary retention. Musculoskeletal: No myalgias. No muscle weakness, no gait dysfunction, no frequent falls. No back pain. No neck pain. Integumentary: No wounds, no lesions. No rash or pruritus. Neurologic: No aphasia. No facial droop. No change in mentation. No head injury. No headache. No paralysis. No paresthesia. Psychiatric: No depression. No anxiety. Endocrine: No abnormal blood sugars. PHYSICAL EXAMINATION: GENERAL: The patient is alert and oriented x3, not in any acute distress. Well developed, well nourished. HEENT: Pupils are round and equally reacting to light. EOMI. No scleral icterus. No conjunctival pallor. Normocephalic, atraumatic. No pharyngeal erythema. No thyromegaly. CARDIOVASCULAR: S1 and S2 present. No murmurs, rubs, or gallops. PULMONARY: Chest is clear to auscultation, no wheezing or crackles. ABDOMEN: Soft, nontender, nondistended, normoactive bowel sounds. No palpable organomegaly. MUSCULOSKELETAL: No joint swelling or deformity. EXTREMITIES: No cyanosis, clubbing, or pedal edema. NEUROLOGICAL: Gross neurological examination did not reveal any focal deficits. SKIN: No rashes. ASSESSMENT AND PLAN 1. Acute hypoxemic respiratory failure secondary to suspected COVID-19 pneumonia as well as acute exacerbation of systolic heart failure - Pulmonary service on board and patient has been initiated on Remdesivir; Decadron 6 mg IV daily; anticoagulation with Coumadin; vitamin supplementation with vitamin D and C, continue Lasix 40 mg twice daily. - Trend inflammatory markers 2. Chronic obstructive pulmonary disease, not oxygen dependent; continue with home inhaler therapy 3. Atrial fibrillation, anticoagulated with warfarin; patient remains rate controlled on metoprolol, 50 mg by mouth twice a day 4. Coronary artery disease/ischemic cardiomyopathy with previous stent placement; EF 35-40% 5. History of CVA with residual right-sided weakness 6. Diabetes mellitus type 2; monitor Accu-Cheks every 6 hours as with insulin sliding scale 7. Hypertension; metoprolol 50 mg by mouth twice a day; losartan 25 mg daily 8. Hyperlipidemia; Lipitor 40 mg by mouth daily at bedtime 9. Recurrent depression; Zoloft 100 mg daily along with trazodone 50mg po QHS DVT prophylaxis SCDs/anticoagulation with Coumadin CODE STATUS; full code DISCHARGE PLAN [place] Impression and plan of care have been directed as dictated by the signing physician. Anastacia Browning nurse practitioner acting as scribe for signing physician. Objective - Vital Signs Vital signs: Vital Signs Temp 98.1 F 10/05/20 06:00 Pulse 75 10/05/20 06:00 Resp 16 10/05/20 06:00 BP 109/63 10/05/20 06:00 Pulse Ox 96 10/05/20 06:00 Intake & Output 10/04/20 10/05/20 10/05/20 18:59 06:59 18:59 Output Total 400 300 Balance -400 -300 Output: Urine 400 300 Other: # Voids 1 3 # Bowel Movements 3 - Labs CBC & Chem 7: 10/03/20 08:00 10/05/20 06:58 Labs: Abnormal Lab Results - Last 24 Hours (Table) 10/04/20 10/04/20 10/04/20 Range/Units 06:06 06:06 11:25 PT 17.8 H (9.0-12.0) sec INR 1.8 H (<1.2) Sodium (137-145) mmol/L Chloride (98-107) mmol/L Carbon Dioxide (22-30) mmol/L BUN (9-20) mg/dL Glucose (74-99) mg/dL POC Glucose (mg/dL) 249 H (75-99) mg/dL Calcium (8.4-10.2) mg/dL C-Reactive Protein 2.4 H (0.0-0.8) mg/dL 10/04/20 10/04/20 10/05/20 Range/Units 17:18 20:48 06:58 PT (9.0-12.0) sec INR (<1.2) Sodium 134 L (137-145) mmol/L Chloride 92 L (98-107) mmol/L Carbon Dioxide 38 H (22-30) mmol/L BUN 30 H (9-20) mg/dL Glucose 122 H (74-99) mg/dL POC Glucose (mg/dL) 353 H 265 H (75-99) mg/dL Calcium 8.2 L (8.4-10.2) mg/dL C-Reactive Protein (0.0-0.8) mg/dL 10/05/20 Range/Units 06:59 PT (9.0-12.0) sec INR (<1.2) Sodium (137-145) mmol/L Chloride (98-107) mmol/L Carbon Dioxide (22-30) mmol/L BUN (9-20) mg/dL Glucose (74-99) mg/dL POC Glucose (mg/dL) 127 H (75-99) mg/dL Calcium (8.4-10.2) mg/dL C-Reactive Protein (0.0-0.8) mg/dL Microbiology - Last 24 Hours (Table) 10/02/20 16:55 Blood Culture - Preliminary Blood No Growth after 48 hours 10/02/20 16:55 Blood Culture Gram Stain - Preliminary Blood Blood Culture - Preliminary Staphylococcus epidermidis
[2020-10-05 17:16] LABS: Glucose,Whole Blood 306 mg/dL (75-99)
[2020-10-05] MEDS ORDERED: WARFARIN 5 MG TAB PO ONE (18:00)
[2020-10-05] MEDS: MAGNESIUM OXIDE 400 MG TAB PO SCH (18:02)
[2020-10-05 21:04] LABS: Glucose,Whole Blood 243 mg/dL (75-99)
[2020-10-05] MEDS: INSULIN DETEMIR (LEVEMIR) 100 UNIT/ML SYR SQ SCH (21:52)
[2020-10-05] MEDS: ATORVASTATIN 40 MG TAB PO SCH (21:52)
[2020-10-05] MEDS: MONTELUKAST 10 MG TAB PO SCH (21:52)
[2020-10-05] MEDS: MELATONIN 3 MG TABLET PO SCH (21:52)
[2020-10-05] MEDS: MAGNESIUM HYDROXIDE 2,400 MG/10 ML CUP PO PRN (22:14)
[2020-10-06 06:12] LABS: INR 1.4 (<1.2); Prothrombin Time 14.6 sec (9.0-12.0)
[2020-10-06 07:43] LABS: Glucose,Whole Blood 172 mg/dL (75-99)
--- NOTE | 2020-10-06 09:15 | P.PN ---
Subjective Progress Note Date: 10/06/20 80-year-old gentleman who follows with Dr. Anguiano as his primary care provider. He has a history of atrial fibrillation anticoagulated with warfarin, congestive heart failure, coronary artery disease with previous stent placement, iliac stents, diabetes mellitus, hyperlipidemia, hypertension, CVA/TIA he had recently been here following a fall with left ankle strain and then discharged to [facility] for rehabilitation. Yesterday apparently was having some shortness of breath and hypoxemia and tested positive for COVID-19 and was sent here to the emergency room. He has been maintaining O2 saturation 94% and greater on 2 L nasal cannula. Chest x-ray reveals bilateral infiltrates/atelectasis and possible underlying pulmonary fibrosis. CT angiogram ruled out pulmonary embolism. There is cardiomegaly with pleural fluid and pulmonary infiltrates with some fluid volume overload. 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 White count 3.3. Hemoglobin 14.1. INR 2.9. Sodium 138. Potassium 4.5. Creatinine 0.94. Troponin 0.067, 0.052. ProBNP 9730. Procalcitonin 0.16. LDH 456. C- reactive protein 2.9. 10/04/2020 Patient is seen and evaluated resting comfortably in bed; currently on 2 L of O2 per nasal cannula with O2 saturation above 92% Vital signs are reviewed temperature 98.2, pulse 78, respiration 18 and blood pressure 135/84 Lab review shows a d-dimer of 0.17, WBC 3.3, hemoglobin 14.1, BUN/creatinine of 24/0.94 with elevated BNP of 9730, pro-calcitonin 0.16; blood cultures positive for staph epidermidis; patient is currently on IV vancomycin Patient remains on REM, Decadron 6 mg and Lovenox 40 mg daily Pulmonary on board and recommending to continue to titrate FiO2 down keeping O2 saturation greater than 92% 10/05: Patient has been afebrile, heart rate 75, blood pressure 109/63, pulse ox 96% on 2 L nasal cannula. Repeat blood work reveals INR 1.25. Pharmacy is dosing Coumadin. Sodium 134, potassium 4.4, chloride 92, CO2 38, BUN 30 and creatinine 0.97. Blood sugars are running between 127 and 353. Blood culture is Staphylococcus epidermidis most likely contamination. Patient is stating that his breathing status seems to be improving. He is currently on 2 L nasal cannula. Patient is on Remdesivir day #3/5 and patient is continued on oral Decadron. Discharge plan is to return to [facility] complete his course of subacute rehab. Most likely he will be ready in 48 hours. Midline has been ordered for IV access. 10/06: Patient complains of increasing cough and sputum but unable to bring it up. He states his breathing is not bad today. He does have been notable wheezing. Chest x-ray ordered and oral Lasix changed to IV Lasix 40 mg twice daily. Patient's been afebrile, heart rate 61, blood pressure 126/68, pulse ox 96% on 2 L nasal cannula. INR is 1.4 and pharmacy is dosing his Coumadin. Blood sugars running between 172 and 306. Patient remains on oral dexamethasone, Symbicort and albuterol inhaler, Remdesivir will be completed tomorrow. Most likely patient will be ready for discharge back to [facility] on . Review Of Systems: Constitutional: No fever, no chills, no night sweats. No weight change. No weakness, fatigue or lethargy. No daytime sleepiness. EENT: No headache. No blurred vision or double vision, no loss of vision. No loss of Hearing, no ringing in the ears, no dizziness. No nasal drainage or congestion. No epistaxis. No sore throat. Lungs: Reports shortness of breath improving, reports cough, no sputum production. No wheezing. Cardiovascular: No chest pain, no lower extremity edema. No palpitations. No paroxysmal nocturnal dyspnea. No orthopnea. No lightheadedness or dizziness. No syncopal episodes. Abdominal: No abdominal pain. No nausea, vomiting. No diarrhea. No constipation. No bloody or tarry stools.. No loss of appetite. Genitourinary: No dysuria, increased frequency, urgency. No urinary retention. Musculoskeletal: No myalgias. No muscle weakness, no gait dysfunction, no frequent falls. No back pain. No neck pain. Integumentary: No wounds, no lesions. No rash or pruritus. Neurologic: No aphasia. No facial droop. No change in mentation. No head injury. No headache. No paralysis. No paresthesia. Psychiatric: No depression. No anxiety. Endocrine: No abnormal blood sugars. PHYSICAL EXAMINATION: GENERAL: The patient is alert and oriented x3, not in any acute distress. Well developed, well nourished. HEENT: Pupils are round and equally reacting to light. EOMI. No scleral icterus. No conjunctival pallor. Normocephalic, atraumatic. No pharyngeal erythema. No thyromegaly. CARDIOVASCULAR: S1 and S2 present. No murmurs, rubs, or gallops. PULMONARY: Scattered expiratory wheeze. Diminished breath sounds bilateral bases. ABDOMEN: Soft, nontender, nondistended, normoactive bowel sounds. No palpable organomegaly. MUSCULOSKELETAL: No joint swelling or deformity. EXTREMITIES: No cyanosis, clubbing, or pedal edema. NEUROLOGICAL: Gross neurological examination did not reveal any focal deficits. SKIN: No rashes. ASSESSMENT AND PLAN 1. Acute hypoxemic respiratory failure secondary to suspected COVID-19 pneumonia as well as acute exacerbation of systolic heart failure - Pulmonary service on board and patient has been initiated on Remdesivir; Decadron 6 mg IV daily; anticoagulation with Coumadin; vitamin supplementation with vitamin D and C, continue Lasix 40 mg twice daily changed from oral to IV, repeat chest x-ray, continue Symbicort and albuterol inhaler. - Trend inflammatory markers 2. Chronic obstructive pulmonary disease, not oxygen dependent; continue with home inhaler therapy 3. Atrial fibrillation, anticoagulated with warfarin; patient remains rate controlled on metoprolol, 50 mg by mouth twice a day 4. Coronary artery disease/ischemic cardiomyopathy with previous stent placement; EF 35-40% 5. History of CVA with residual right-sided weakness 6. Diabetes mellitus type 2; monitor Accu-Cheks every 6 hours as with insulin s liding scale 7. Hypertension; metoprolol 50 mg by mouth twice a day; losartan 25 mg daily 8. Hyperlipidemia; Lipitor 40 mg by mouth daily at bedtime 9. Recurrent depression; Zoloft 100 mg daily along with trazodone 50mg po QHS DVT prophylaxis SCDs/anticoagulation with Coumadin CODE STATUS; full code DISCHARGE PLAN [facility] on Impression and plan of care have been directed as dictated by the signing physician. Anastacia Browning nurse practitioner acting as scribe for signing physician. Objective - Vital Signs Vital signs: Vital Signs Temp 97.4 F L 10/06/20 05:45 Pulse 61 10/06/20 05:45 Resp 17 10/06/20 05:45 BP 126/68 10/06/20 05:45 Pulse Ox 96 10/06/20 05:45 Intake & Output 10/05/20 10/06/20 10/06/20 18:59 06:59 18:59 Output Total 800 Balance -800 Output: Urine 800 Other: Voiding Method Urinal # Voids 4 - Labs CBC & Chem 7: 10/03/20 08:00 10/05/20 06:58 Labs: Abnormal Lab Results - Last 24 Hours (Table) 10/05/20 10/05/20 10/05/20 Range/Units 06:58 06:58 11:14 PT 13.4 H (9.9-11.9) sec INR 1.25 H (0.90-1.11) Sodium 134 L (137-145) mmol/L Chloride 92 L (98-107) mmol/L Carbon Dioxide 38 H (22-30) mmol/L BUN 30 H (9-20) mg/dL Glucose 122 H (74-99) mg/dL POC Glucose (mg/dL) 195 H (75-99) mg/dL Calcium 8.2 L (8.4-10.2) mg/dL 10/05/20 10/05/20 10/06/20 Range/Units 17:14 21:02 05:39 PT 14.6 H (9.9-11.9) sec INR 1.4 H (0.90-1.11) Sodium (137-145) mmol/L Chloride (98-107) mmol/L Carbon Dioxide (22-30) mmol/L BUN (9-20) mg/dL Glucose (74-99) mg/dL POC Glucose (mg/dL) 306 H 243 H (75-99) mg/dL Calcium (8.4-10.2) mg/dL 10/06/20 Range/Units 07:32 PT (9.9-11.9) sec INR (0.90-1.11) Sodium (137-145) mmol/L Chloride (98-107) mmol/L Carbon Dioxide (22-30) mmol/L BUN (9-20) mg/dL Glucose (74-99) mg/dL POC Glucose (mg/dL) 172 H (75-99) mg/dL Calcium (8.4-10.2) mg/dL Microbiology - Last 24 Hours (Table) 10/02/20 16:55 Blood Culture - Preliminary Blood No Growth after 72 hours
[2020-10-06] MEDS: METHADONE 5 MG TAB PO SCH ×2 (09:19→21:29)
[2020-10-06] MEDS: PANTOPRAZOLE 40 MG TABLET PO SCH ×2 (09:20→17:37)
[2020-10-06] MEDS: ASCORBIC ACID 500 MG TAB PO SCH (09:20)
[2020-10-06] MEDS: GABAPENTIN 100 MG CAP PO SCH ×2 (09:20→21:29)
[2020-10-06] MEDS: METOPROLOL TARTRATE 50 MG TAB PO SCH ×2 (09:21→17:33)
[2020-10-06] MEDS: CLOPIDOGREL 75 MG TAB PO SCH (09:21)
[2020-10-06] MEDS: POTASSIUM CHLORIDE ER 20 MEQ TAB.ER PO SCH (09:21)
[2020-10-06] MEDS: LOSARTAN 25 MG TAB PO SCH (09:21)
[2020-10-06] MEDS: SENNOSIDES-DOCUSATE SODIUM 1 EACH TAB PO SCH ×2 (09:21→17:33)
[2020-10-06] MEDS: ZINC SULFATE 220 MG CAP PO SCH (09:21)
[2020-10-06] MEDS: dexAMETHasone 2 MG TAB PO SCH (09:21)
[2020-10-06] MEDS: CHOLECALCIFEROL 25 MCG (1000 IU) TABLET PO SCH (09:21)
[2020-10-06] MEDS: SPIRONOLACTONE 25 MG TAB PO SCH (09:22)
[2020-10-06] MEDS: SERTRALINE 100 MG TAB PO SCH (09:22)
[2020-10-06] MEDS: INSULIN ASPART (NovoLOG) 100 UNIT/ML VIAL SQ SCH ×6 (09:23→17:36)
[2020-10-06] MEDS: SYMBICORT 160-4.5 MCG INHALER INHALATION SCH ×2 (09:23→19:02)
[2020-10-06] MEDS: ALBUTEROL HFA INHALER INHALATION SCH ×3 (09:23→19:03)
[2020-10-06] MEDS: FUROSEMIDE 10 MG/ML 4 ML VIAL IV SCH ×2 (09:24→21:30)
[2020-10-06] MEDS: polyethylene glycoL 3350 17 GM POWD.PACK PO SCH (09:24)
[2020-10-06] MEDS: SIMETHICONE 80 MG CHEWABLE PO SCH ×3 (09:27→17:33)
[2020-10-06] MEDS: FUROSEMIDE 40 MG TAB PO SCH (09:57)
[2020-10-06] MEDS: NON FORMULARY DRUG (Dapagliflozin Propanediol [Farxiga] 5 MG Tablet) PO SCH (09:57)
[2020-10-06] MEDS: NYSTATIN 100,000UNIT/GM CREAM 30 GM TUBE TOPICAL SCH ×3 (09:57→21:49)
[2020-10-06] MEDS: FLUTICASONE 50MCG/SPRAY NASAL 16GM EA NOSTRIL SCH (09:57)
--- NOTE | 2020-10-06 10:55 | P.PN ---
Subjective Progress Note Date: 10/06/20 Principal diagnosis: COVID-19 pneumonia This is a very pleasant 80-year-old gentleman who follows with Dr. Anguiano as his primary care provider. He has a history of atrial fibrillation anticoagulated with warfarin, congestive heart failure, coronary artery disease with previous s tent placement, iliac stents, diabetes mellitus, hyperlipidemia, hypertension, CVA/TIA he had recently been here following a fall with left ankle strain and then discharged to [facility] for rehabilitation. Yesterday apparently was having some shortness of breath and hypoxemia and tested positive for COVID-19 and was sent here to the emergency room. He has been maintaining O2 saturation 94% and greater on 2 L nasal cannula. Chest x-ray reveals bilateral infiltrates/atelectasis and possible underlying pulmonary fibrosis. CT angiogram ruled out pulmonary embolism. There is cardiomegaly with pleural fluid and pulmonary infiltrates with some fluid volume overload. 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 White count 3.3. Hemoglobin 14.1. INR 2.9. Sodium 138. Potassium 4.5. Creatinine 0.94. Troponin 0.067, 0.052. ProBNP 9730. Procalcitonin 0.16. LDH 456. C-reactive protein 2.9. On 10/04/2020 patient seen in follow-up on medical surgical floor. He is comfortable, he is currently on 2 L of oxygen his pulse ox is 95%, he is resting comfortably in bed, he denies any worsening dyspnea, cough, no chest discomfort. Today is day 2 of Remdesivir, he also remains on Decadron 6 mg daily, prophylactic dose of Lovenox 40 mg daily. He is on multiple medications for his multiple chronic medical conditions. His follow-up chest x-ray today shows peripheral scattered infiltrates. It appears that he takes Coumadin for his history of A. fib, we don't have INR from today, his last INR from her yesterday was 2.9. His d-dimer was low at less than 0.17. White count was 3.3, hemoglo bin was 14.1. His CO2 was 40, B1 is 24 creatinine was 0.94, and he did have a mild troponin leak, his proBNP was also noted to be quite elevated at 9730, his pro-calcitonin level was negative at 0.16. Blood culture from 10/02/2020 showed Staphylococcus epidermidis, likely contaminant, patient is currently on vancomycin. 10 denies any chest discomfort, no nausea vomiting or diarrhea. On 10/05/2020 patient seen in follow-up on medical surgical floor. He is resting comfortably in bed, presented to liters of oxygen pulse ox is 95-96%, afebrile, hemodynamically stable, lung sounds reveal diminished breath sounds with bibasilar crackles, remains on oral Lasix, he is also on oral Decadron, neb ulized bronchodilators. Patient is supposed to get his third Remdesivir treatment today. He is waiting on the midline IV placement. His INR today is 1.25, and pharmacy is dosing his warfarin. From [place] pneumonia perspective his oxygenation has not worsened. He seems to be fairly stable, in no acute respiratory distress, his sodium today is 134, potassium is 4.4, cl 92, CO2 30, B1 is 30 creatinine 0.97. The patient is seen today 10/06/2020 and follow-up on the regular medical floor. He is currently resting comfortably in bed. Awake and alert in no acute distress. Maintaining O2 saturations in the 90s on 2 L/m per nasal cannula. INR 1.4. Blood glucose 172. He remains on Remdesivir, dexamethasone, IV diuretics. Remains on vitamin supplements. Anticoagulated with warfarin. Objective - Vital Signs Vital signs: Vital Signs Temp 97.8 F 10/06/20 10:00 Pulse 92 10/06/20 10:00 Resp 18 10/06/20 10:00 BP 123/68 10/06/20 10:00 Pulse Ox 96 10/06/20 10:00 Intake & Output 10/05/20 10/06/20 10/06/20 18:59 06:59 18:59 Output Total 800 Balance -800 Output: Urine 800 Other: Voiding Method Urinal # Voids 4 1 # Bowel Movements 1 - Exam GENERAL EXAM: Alert, very pleasant, 80-year-old male patient, currently on 2 L of oxygen pulse ox of 965%, comfortable in no apparent distress. HEAD: Normocephalic/atraumatic. EYES: Normal reaction of pupils, equal size. Conjunctiva pink, sclera white. NOSE: Clear with pink turbinates. THROAT: No erythema or exudates. NECK: No masses, no JVD, no thyroid enlargement, no adenopathy. CHEST: No chest wall deformity. Symmetrical expansion. LUNGS: Equal air entry with crackles in the posterior bases. CVS: Regular rate and rhythm, normal S1 and S2, no gallops, no murmurs, no rubs ABDOMEN: Soft, nontender. No hepatosplenomegaly, normal bowel sounds, no guarding or rigidity. EXTREMITIES: No clubbing, no edema, no cyanosis, 2+ pulses and upper and lower extremities. MUSCULOSKELETAL: Muscle strength and tone normal. SPINE: No scoliosis or deformity SKIN: No rashes CENTRAL NERVOUS SYSTEM: No focal deficits, tone is normal in all 4 extremities. PSYCHIATRIC: Alert and oriented -3. Appropriate affect. Intact judgment and insight. - Labs CBC & Chem 7: 10/03/20 08:00 10/05/20 06:58 Labs: Abnormal Lab Results - Last 24 Hours (Table) 10/05/20 10/05/20 10/05/20 Range/Units 06:58 11:14 17:14 PT 13.4 H (9.9-11.9) sec INR 1.25 H (0.90-1.11) POC Glucose (mg/dL) 195 H 306 H (75-99) mg/dL 10/05/20 10/06/20 10/06/20 Range/Units 21:02 05:39 07:32 PT 14.6 H (9.9-11.9) sec INR 1.4 H (0.90-1.11) POC Glucose (mg/dL) 243 H 172 H (75-99) mg/dL Microbiology - Last 24 Hours (Table) 10/02/20 16:55 Blood Culture - Preliminary Blood No Growth after 72 hours Assessment and Plan Assessment: 1 Acute hypoxemic respiratory failure secondary to COVID-19 pneumonia as well as acute exacerbation of systolic congestive heart failure 2 Chronic obstructive pulmonary disease, not oxygen dependent 3 Atrial fibrillation, anticoagulated with warfarin 4 Coronary artery disease with previous stent placement 5 History of CVA with residual right-sided weakness 6 Ischemic cardiomyopathy with ejection fraction 35-40% 7 Diabetes mellitus 8 Recent fall with left ankle strain 9 Hypertension 10 Hyperlipidemia 11 History of depression 12 Chronic pain syndrome 13 Poor overall functional performance based on the above-mentioned multiple comorbidities Plan: The patient was seen and evaluated by Dr. Weir Continue Remdesivir, Decadron, warfarin Continue vitamin supplements Titrate down the FiO2 as tolerated We will continue to follow I, the cosigning physician, performed a history & physical examination of the patient. Lungs sounds crackles in the bilateral posterior bases. Maintaining good O2 saturations in the 90s on 2 L/m per nasal cannula. I discussed the assessment and plan of care with my nurse practitioner, Chuyita Williamson. I attest to the above note as dictated by her.
[2020-10-06 11:36] LABS: Glucose,Whole Blood 176 mg/dL (75-99)
--- NOTE | 2020-10-06 15:26 | XR ---
EXAMINATION TYPE: XR chest 1V portable DATE OF EXAM: 10/06/2020 COMPARISON: 10/04/2020 INDICATION: CHF, COVID TECHNIQUE: Single frontal view of the chest is obtained. FINDINGS: The heart size is mildly prominent.. The pulmonary vasculature is prominent. Diffuse increased lung markings are present previous greater along the periphery of the right mid and lower lung burris. Mild left lower lobe infiltrate is present. IMPRESSION: 1. Cardiomegaly, Small bilateral pleural effusions, Prominent vascular markings. Consider congestive heart failure. 2. Given some peripheral infiltrate appearance, consider atypical pneumonia within the differential.
[2020-10-06 16:56] LABS: Glucose,Whole Blood 247 mg/dL (75-99)
[2020-10-06] MEDS: MAGNESIUM OXIDE 400 MG TAB PO SCH (17:33)
[2020-10-06] MEDS ORDERED: WARFARIN 3 MG TAB PO ONE (18:00)
[2020-10-06 20:34] LABS: Glucose,Whole Blood 257 mg/dL (75-99)
[2020-10-06] MEDS: REMDESIVIR 100 MG in SODIUM CHLORIDE 0.9% 250 ML IVPB SCH (21:27)
[2020-10-06] MEDS: ATORVASTATIN 40 MG TAB PO SCH (21:29)
[2020-10-06] MEDS: INSULIN DETEMIR (LEVEMIR) 100 UNIT/ML SYR SQ SCH (21:29)
[2020-10-06] MEDS: MONTELUKAST 10 MG TAB PO SCH (21:29)
[2020-10-06] MEDS: MELATONIN 3 MG TABLET PO SCH (21:45)
[2020-10-07 07:06] LABS: Glucose,Whole Blood 186 mg/dL (75-99)
[2020-10-07 07:58] LABS: INR 1.9 (<1.2); Prothrombin Time 18.6 sec (9.0-12.0)
[2020-10-07] MEDS: dexAMETHasone 2 MG TAB PO SCH (08:22)
[2020-10-07] MEDS: SPIRONOLACTONE 25 MG TAB PO SCH (08:22)
[2020-10-07] MEDS: SENNOSIDES-DOCUSATE SODIUM 1 EACH TAB PO SCH ×2 (08:22→17:41)
[2020-10-07] MEDS: FUROSEMIDE 10 MG/ML 4 ML VIAL IV SCH ×2 (08:22→19:50)
[2020-10-07] MEDS: METHADONE 5 MG TAB PO SCH ×2 (08:24→19:48)
[2020-10-07] MEDS: LOSARTAN 25 MG TAB PO SCH (08:24)
[2020-10-07] MEDS: METOPROLOL TARTRATE 50 MG TAB PO SCH ×2 (08:24→17:43)
[2020-10-07] MEDS: ZINC SULFATE 220 MG CAP PO SCH (08:24)
[2020-10-07] MEDS: ASCORBIC ACID 500 MG TAB PO SCH (08:24)
[2020-10-07] MEDS: SERTRALINE 100 MG TAB PO SCH (08:24)
[2020-10-07] MEDS: POTASSIUM CHLORIDE ER 20 MEQ TAB.ER PO SCH (08:25)
[2020-10-07] MEDS: SIMETHICONE 80 MG CHEWABLE PO SCH ×3 (08:25→17:41)
[2020-10-07] MEDS: CLOPIDOGREL 75 MG TAB PO SCH (08:25)
[2020-10-07] MEDS: polyethylene glycoL 3350 17 GM POWD.PACK PO SCH (08:25)
[2020-10-07] MEDS: NYSTATIN 100,000UNIT/GM CREAM 30 GM TUBE TOPICAL SCH ×3 (08:25→19:51)
[2020-10-07] MEDS: PANTOPRAZOLE 40 MG TABLET PO SCH ×2 (08:25→17:41)
[2020-10-07] MEDS: INSULIN ASPART (NovoLOG) 100 UNIT/ML VIAL SQ SCH ×6 (08:25→17:43)
[2020-10-07] MEDS: CHOLECALCIFEROL 25 MCG (1000 IU) TABLET PO SCH (08:25)
[2020-10-07] MEDS: ALBUTEROL HFA INHALER INHALATION SCH ×3 (09:10→19:01)
[2020-10-07] MEDS: SYMBICORT 160-4.5 MCG INHALER INHALATION SCH ×2 (09:10→19:01)
[2020-10-07] MEDS: GABAPENTIN 100 MG CAP PO SCH ×2 (09:20→19:50)
[2020-10-07] MEDS: NON FORMULARY DRUG (Dapagliflozin Propanediol [Farxiga] 5 MG Tablet) PO SCH (09:23)
[2020-10-07] MEDS: FLUTICASONE 50MCG/SPRAY NASAL 16GM EA NOSTRIL SCH (09:23)
[2020-10-07 11:25] LABS: Glucose,Whole Blood 255 mg/dL (75-99)
--- NOTE | 2020-10-07 11:52 | P.PN ---
Subjective Progress Note Date: 10/07/20 80-year-old gentleman who follows with Dr. Anguiano as his primary care provider. He has a history of atrial fibrillation anticoagulated with warfarin, congestive heart failure, coronary artery disease with previous stent placement, iliac stents, diabetes mellitus, hyperlipidemia, hypertension, CVA/TIA he had recently been here following a fall with left ankle strain and then discharged to [facility] for rehabilitation. Yesterday apparently was having some shortness of breath and hypoxemia and tested positive for COVID-19 and was sent here to the emergency room. He has been maintaining O2 saturation 94% and greater on 2 L nasal cannula. Chest x-ray reveals bilateral infiltrates/atelectasis and possible underlying pulmonary fibrosis. CT angiogram ruled out pulmonary embolism. There is cardiomegaly with pleural fluid and pulmonary infiltrates with some fluid volume overload. 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 White count 3.3. Hemoglobin 14.1. INR 2.9. Sodium 138. Potassium 4.5. Creatinine 0.94. Troponin 0.067, 0.052. ProBNP 9730. Procalcitonin 0.16. LDH 456. C- reactive protein 2.9. 10/04/2020 Patient is seen and evaluated resting comfortably in bed; currently on 2 L of O2 per nasal cannula with O2 saturation above 92% Vital signs are reviewed temperature 98.2, pulse 78, respiration 18 and blood pressure 135/84 Lab review shows a d-dimer of 0.17, WBC 3.3, hemoglobin 14.1, BUN/creatinine of 24/0.94 with elevated BNP of 9730, pro-calcitonin 0.16; blood cultures positive for staph epidermidis; patient is currently on IV vancomycin Patient remains on REM, Decadron 6 mg and Lovenox 40 mg daily Pulmonary on board and recommending to continue to titrate FiO2 down keeping O2 saturation greater than 92% 10/05: Patient has been afebrile, heart rate 75, blood pressure 109/63, pulse ox 96% on 2 L nasal cannula. Repeat blood work reveals INR 1.25. Pharmacy is dosing Coumadin. Sodium 134, potassium 4.4, chloride 92, CO2 38, BUN 30 and creatinine 0.97. Blood sugars are running between 127 and 353. Blood culture is Staphylococcus epidermidis most likely contamination. Patient is stating that his breathing status seems to be improving. He is currently on 2 L nasal cannula. Patient is on Remdesivir day #3/5 and patient is continued on oral Decadron. Discharge plan is to return to [facility] complete his course of subacute rehab. Most likely he will be ready in 48 hours. Midline has been ordered for IV access. 10/06: Patient complains of increasing cough and sputum but unable to bring it up. He states his breathing is not bad today. He does have been notable wheezing. Chest x-ray ordered and oral Lasix changed to IV Lasix 40 mg twice daily. Patient's been afebrile, heart rate 61, blood pressure 126/68, pulse ox 96% on 2 L nasal cannula. INR is 1.4 and pharmacy is dosing his Coumadin. Blood sugars running between 172 and 306. Patient remains on oral dexamethasone, Symbicort and albuterol inhaler, Remdesivir will be completed tomorrow. Most likely patient will be ready for discharge back to [facility] on . 10/07: Patient states he is feeling a little bit better from yesterday. He still has phlegm that he needs to bring up. He denies having any nausea or vomiting. Patient did have a bowel movement yesterday. Lungs sounds are improved from yesterday. Pablo wraps to be applied to the lower extremities. Patient remains afebrile, heart rate 63, blood pressure 141/70, pulse ox 97% on 2 L nasal cannula. Blood sugars are running between 186 and 255. INR 1.9. Review Of Systems: Constitutional: No fever, no chills, no night sweats. No weight change. No weakness, fatigue or lethargy. No daytime sleepiness. EENT: No headache. No blurred vision or double vision, no loss of vision. No loss of Hearing, no ringing in the ears, no dizziness. No nasal drainage or congestion. No epistaxis. No sore throat. Lungs: Reports shortness of breath improving, reports cough, reports sputum production. No wheezing. Cardiovascular: No chest pain, no lower extremity edema. No palpitations. No paroxysmal nocturnal dyspnea. No orthopnea. No lightheadedness or dizziness. No syncopal episodes. Abdominal: No abdominal pain. No nausea, vomiting. No diarrhea. No constipation. No bloody or tarry stools.. No loss of appetite. Genitourinary: No dysuria, increased frequency, urgency. No urinary retention. Musculoskeletal: No myalgias. No muscle weakness, no gait dysfunction, no frequent falls. No back pain. No neck pain. Integumentary: No wounds, no lesions. No rash or pruritus. Neurologic: No aphasia. No facial droop. No change in mentation. No head injury. No headache. No paralysis. No paresthesia. Psychiatric: No depression. No anxiety. Endocrine: Mildly abnormal blood sugars. PHYSICAL EXAMINATION: GENERAL: The patient is alert and oriented x3, not in any acute distress. Well developed, well nourished. HEENT: Pupils are round and equally reacting to light. EOMI. No scleral icterus. No conjunctival pallor. Normocephalic, atraumatic. No pharyngeal erythema. No thyromegaly. CARDIOVASCULAR: S1 and S2 present. No murmurs, rubs, or gallops. PULMONARY: Scattered expiratory wheeze and a few scattered rhonchi. Diminished breath sounds bilateral bases. ABDOMEN: Soft, nontender, nondistended, normoactive bowel sounds. No palpable organomegaly. MUSCULOSKELETAL: No joint swelling or deformity. EXTREMITIES: No cyanosis, clubbing, or pedal edema. NEUROLOGICAL: Gross neurological examination did not reveal any focal deficits. SKIN: No rashes. ASSESSMENT AND PLAN 1. Acute hypoxemic respiratory failure secondary to suspected COVID-19 pneumonia as well as acute exacerbation of systolic heart failure - Pulmonary service on board and patient has been initiated on Remdesivir; Decadron 6 mg IV daily; anticoagulation with Coumadin; vitamin supplementation with vitamin D and C, continue Lasix 40 mg twice daily IV, repeat chest x-ray, continue Symbicort and albuterol inhaler. - Trend inflammatory markers 2. Chronic obstructive pulmonary disease, not oxygen dependent; continue with home inhaler therapy 3. Atrial fibrillation, anticoagulated with warfarin; patient remains rate controlled on metoprolol, 50 mg by mouth twice a day 4. Coronary artery disease/ischemic cardiomyopathy with previous stent placement; EF 35-40% 5. History of CVA with residual right-sided weakness 6. Diabetes mellitus type 2; monitor Accu-Cheks every 6 hours as with insulin sliding scale 7. Hypertension; metoprolol 50 mg by mouth twice a day; losartan 25 mg daily 8. Hyperlipidemia; Lipitor 40 mg by mouth daily at bedtime 9. Recurrent depression; Zoloft 100 mg daily along with trazodone 50mg po QHS DVT prophylaxis SCDs/anticoagulation with Coumadin CODE STATUS; full code DISCHARGE PLAN on Impression and plan of care have been directed as dictated by the signing physician. Anastacia Browning nurse practitioner acting as scribe for signing physician. Objective - Vital Signs Vital signs: Vital Signs Temp 97.7 F 10/07/20 06:00 Pulse 62 10/07/20 06:00 Resp 18 10/07/20 06:00 BP 153/87 10/07/20 06:00 Pulse Ox 97 10/07/20 06:00 Intake & Output 10/06/20 10/07/20 10/07/20 18:59 06:59 18:59 Output Total 1800 Balance -1800 Output: Urine 1800 Other: Voiding Method External Catheter External Catheter # Voids 1 1 # Bowel Movements 1 - Labs CBC & Chem 7: 10/03/20 08:00 10/05/20 06:58 Labs: Abnormal Lab Results - Last 24 Hours (Table) 10/06/20 10/06/20 10/06/20 Range/Units 11:34 16:51 20:33 POC Glucose (mg/dL) 176 H 247 H 257 H (75-99) mg/dL 10/07/20 Range/Units 07:05 POC Glucose (mg/dL) 186 H (75-99) mg/dL Microbiology - Last 24 Hours (Table) 10/02/20 16:55 Blood Culture - Preliminary Blood No Growth after 96 hours 10/02/20 16:55 Blood Culture Gram Stain - Final Blood Blood Culture - Final Staphylococcus epidermidis
--- NOTE | 2020-10-07 14:20 | P.PN ---
Subjective Progress Note Date: 10/07/20 Principal diagnosis: Coronavirus pneumonia. COVID-19 pneumonia This is a very pleasant 80-year-old gentleman who follows with Dr. Anguiano as his primary care provider. He has a history of atrial fibrillation anticoagulated with warfarin, congestive heart failure, coronary artery disease with previous stent placement, iliac stents, diabetes mellitus, hyperlipidemia, hypertension, CVA/TIA he had recently been here following a fall with left ankle strain and then discharged to [facility] for rehabilitation. Yesterday apparently was having some shortness of breath and hypoxemia and tested positive for COVID-19 and was sent here to the emergency room. He has been maintaining O2 saturation 94% and greater on 2 L nasal cannula. Chest x-ray reveals bilateral infiltrates/atelectasis and possible underlying pulmonary fibrosis. CT angiogram ruled out pulmonary embolism. There is cardiomegaly with pleural fluid and pulmonary infiltrates with some fluid volume overload. 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 White count 3.3. Hemoglobin 14.1. INR 2.9. Sodium 138. Potassium 4.5. Creatinine 0.94. Troponin 0.067, 0.052. ProBNP 9730. Procalcitonin 0.16. LDH 456. C-reactive protein 2.9. On 10/04/2020 patient seen in follow-up on medical surgical floor. He is co mfortable, he is currently on 2 L of oxygen his pulse ox is 95%, he is resting comfortably in bed, he denies any worsening dyspnea, cough, no chest discomfort. Today is day 2 of Remdesivir, he also remains on Decadron 6 mg daily, prophylactic dose of Lovenox 40 mg daily. He is on multiple medications for his multiple chronic medical conditions. His follow-up chest x-ray today shows peripheral scattered infiltrates. It appears that he takes Coumadin for his history of A. fib, we don't have INR from today, his last INR from her yesterday was 2.9. His d-dimer was low at less than 0.17. White count was 3.3, hemoglobin was 14.1. His CO2 was 40, B1 is 24 creatinine was 0.94, and he did have a mild troponin leak, his proBNP was also noted to be quite elevated at 9730, his pro-calcitonin level was negative at 0.16. Blood culture from 10/02/2020 showed Staphylococcus epidermidis, likely contaminant, patient is currently on vancomycin. 10 denies any chest discomfort, no nausea vomiting or diarrhea. On 10/05/2020 patient seen in follow-up on medical surgical floor. He is resting comfortably in bed, presented to liters of oxygen pulse ox is 95-96%, afebrile, hemodynamically stable, lung sounds reveal diminished breath sounds with bibasilar crackles, remains on oral Lasix, he is also on oral Decadron, nebulized bronchodilators. Patient is supposed to get his third Remdesivir atul atment today. He is waiting on the midline IV placement. His INR today is 1.25, and pharmacy is dosing his warfarin. From Akira pneumonia perspective his oxygenation has not worsened. He seems to be fairly stable, in no acute respiratory distress, his sodium today is 134, potassium is 4.4, cl 92, CO2 30, B1 is 30 creatinine 0.97. The patient is seen today 10/06/2020 and follow-up on the regular medical floor. He is currently resting comfortably in bed. Awake and alert in no acute distress. Maintaining O2 saturations in the 90s on 2 L/m per nasal cannula. INR 1.4. Blood glucose 172. He remains on Remdesivir, dexamethasone, IV diuretics. Remains on vitamin supplements. Anticoagulated with warfarin. Progress note dated 10/07/2020. The patient is again seen today, in room 480. He is resting comfortably. He is doing better. He is currently on 2 L nasal cannula with saturation of 97%. Temperature, heart rate, respiratory rate, and blood pressure all normal. Today is day #4 of REM. After today, he will have 1 dose left, but the patient is clinically stable and could be discharged earlier. We will leave that up to the primary. The patient had a PT of 18.6 and INR 1.9 today. No additional labs were noted. A chest x-ray done yesterday shows cardiomegaly, small bilateral pleural effusions, prominent vascular markings, and mild changes of congestive heart failure. There is also some peripheral infiltrates, which could be caused by coronavirus. Objective - Vital Signs Vital signs: Vital Signs Temp 97.5 F L 10/07/20 10:00 Pulse 63 10/07/20 10:00 Resp 18 10/07/20 10:00 BP 141/78 10/07/20 10:00 Pulse Ox 97 10/07/20 10:00 Intake & Output 10/06/20 10/07/20 10/07/20 18:59 06:59 18:59 Output Total 1800 450 Balance -1800 -450 Output: Urine 1800 450 Other: Voiding Method External Catheter External Catheter Urinal # Voids 1 1 # Bowel Movements 1 - Exam No acute distress, oriented 3. Currently on 2 L nasal cannula. HEENT examination is grossly unremarkable. . Neck supple. Full range of motion. No adenopathy thyromegaly or neck vein distention. Cardiovascular examination reveals regular rhythm rate. S1-S2 normal. No S3 or S4. No discernible murmur noted. Heart sounds are distant. Heart rate 63 bpm. Lungs reveal mild to moderate bibasilar crackles. No wheezes or rhonchi. Breath sounds are equal bilaterally. Saturations are 97% on 2 L. Abdomen soft bowel sounds are heard. No masses or tenderness. Extremities are intact. No cyanosis clubbing or edema. Skin is without rash or lesion. Neurologic examination is brief but nonfocal. - Labs CBC & Chem 7: 10/03/20 08:00 10/05/20 06:58 Labs: Abnormal Lab Results - Last 24 Hours (Table) 10/06/20 10/06/20 10/07/20 Range/Units 16:51 20:33 07:05 PT (9.0-12.0) sec INR (<1.2) POC Glucose (mg/dL) 247 H 257 H 186 H (75-99) mg/dL 10/07/20 10/07/20 Range/Units 07:27 11:24 PT 18.6 H (9.0-12.0) sec INR 1.9 H (<1.2) POC Glucose (mg/dL) 255 H (75-99) mg/dL Microbiology - Last 24 Hours (Table) 10/02/20 16:55 Blood Culture - Preliminary Blood No Growth after 96 hours 10/02/20 16:55 Blood Culture Gram Stain - Final Blood Blood Culture - Final Staphylococcus epidermidis Assessment and Plan Assessment: 1 Acute hypoxemic respiratory failure secondary to COVID-19 pneumonia as well as acute exacerbation of systolic congestive heart failure. 2 Chronic obstructive pulmonary disease, not oxygen dependent. 3 Atrial fibrillation, anticoagulated with warfarin. 4 Coronary artery disease with previous stent placement. 5 History of CVA with residual right-sided weakness. 6 Ischemic cardiomyopathy with ejection fraction 35-40%. 7 Diabetes mellitus. 8 Recent fall with left ankle strain. 9 Hypertension. 10 Hyperlipidemia. 11 History of depression. 12 Chronic pain syndrome. 13 Poor overall functional performance based on the above-mentioned multiple com orbidities. Plan: Plan dated 10/07/2020. The patient continues to improve. The patient remains on REM, Decadron, and Coumadin. He is also receiving vitamin supplements. The patient's oxygen has been weaned down to 2 L. The patient could be discharged home without completing all 5 days of REM. We'll leave that up to the primary. Clinically he is doing much better. Additional recommendations and suggestions are forthcoming. We will continue to follow make recommendations where appropriate. Time with Patient: Less than 30
[2020-10-07 17:02] LABS: Glucose,Whole Blood 139 mg/dL (75-99)
[2020-10-07] MEDS: MAGNESIUM OXIDE 400 MG TAB PO SCH (17:42)
[2020-10-07] MEDS ORDERED: WARFARIN 5 MG TAB PO ONE (18:00)
[2020-10-07 19:49] LABS: Glucose,Whole Blood 292 mg/dL (75-99)
[2020-10-07] MEDS: ATORVASTATIN 40 MG TAB PO SCH (19:49)
[2020-10-07] MEDS: MONTELUKAST 10 MG TAB PO SCH (19:49)
[2020-10-07] MEDS: traZODone HCL 50 MG TAB PO PRN (19:49)
[2020-10-07] MEDS: MELATONIN 3 MG TABLET PO SCH (19:49)
[2020-10-07] MEDS: INSULIN DETEMIR (LEVEMIR) 100 UNIT/ML SYR SQ SCH (19:50)
[2020-10-07] MEDS: REMDESIVIR 100 MG in SODIUM CHLORIDE 0.9% 250 ML IVPB SCH (22:41)
[2020-10-08 07:02] LABS: INR 2.3 (<1.2)
[2020-10-08 07:30] LABS: Glucose,Whole Blood 210 mg/dL (75-99)
[2020-10-08] MEDS: INSULIN ASPART (NovoLOG) 100 UNIT/ML VIAL SQ SCH ×6 (07:38→17:31)
[2020-10-08] MEDS: NON FORMULARY DRUG (Dapagliflozin Propanediol [Farxiga] 5 MG Tablet) PO SCH (07:39)
[2020-10-08] MEDS: SYMBICORT 160-4.5 MCG INHALER INHALATION SCH ×2 (07:42→19:27)
[2020-10-08] MEDS: ALBUTEROL HFA INHALER INHALATION SCH ×3 (07:42→19:26)
[2020-10-08] MEDS: polyethylene glycoL 3350 17 GM POWD.PACK PO SCH (07:50)
[2020-10-08] MEDS: ASCORBIC ACID 500 MG TAB PO SCH (07:50)
[2020-10-08] MEDS: METHADONE 5 MG TAB PO SCH ×2 (07:50→20:01)
[2020-10-08] MEDS: CHOLECALCIFEROL 25 MCG (1000 IU) TABLET PO SCH (07:50)
[2020-10-08] MEDS: LOSARTAN 25 MG TAB PO SCH (07:51)
[2020-10-08] MEDS: SERTRALINE 100 MG TAB PO SCH (07:51)
[2020-10-08] MEDS: SENNOSIDES-DOCUSATE SODIUM 1 EACH TAB PO SCH ×2 (07:51→17:31)
[2020-10-08] MEDS: SPIRONOLACTONE 25 MG TAB PO SCH (07:51)
[2020-10-08] MEDS: CLOPIDOGREL 75 MG TAB PO SCH (07:51)
[2020-10-08] MEDS: POTASSIUM CHLORIDE ER 20 MEQ TAB.ER PO SCH (07:51)
[2020-10-08] MEDS: SIMETHICONE 80 MG CHEWABLE PO SCH ×3 (07:51→17:31)
[2020-10-08] MEDS: GABAPENTIN 100 MG CAP PO SCH ×2 (07:51→20:01)
[2020-10-08] MEDS: ZINC SULFATE 220 MG CAP PO SCH (07:51)
[2020-10-08] MEDS: METOPROLOL TARTRATE 50 MG TAB PO SCH ×2 (07:53→17:31)
[2020-10-08] MEDS: PANTOPRAZOLE 40 MG TABLET PO SCH ×2 (07:53→17:31)
[2020-10-08] MEDS: dexAMETHasone 2 MG TAB PO SCH (07:53)
[2020-10-08] MEDS: NYSTATIN 100,000UNIT/GM CREAM 30 GM TUBE TOPICAL SCH ×3 (07:55→20:02)
[2020-10-08] MEDS: FLUTICASONE 50MCG/SPRAY NASAL 16GM EA NOSTRIL SCH (07:55)
[2020-10-08] MEDS: FUROSEMIDE 10 MG/ML 4 ML VIAL IV SCH ×2 (08:02→20:01)
[2020-10-08 08:28] LABS: HCT 46.3 % (39.0-53.0); HGB 14.3 gm/dL (13.0-17.5); Hypochromasia Moderate; MCH 29.2 pg (25.0-35.0); MCHC 30.9 g/dL (31.0-37.0); MCV 94.6 fL (80.0-100.0); Mean Platelet Volume 9.5; Platelet Count 152 k/uL (150-450); RBC 4.89 m/uL (4.30-5.90); RDW 13.4 % (11.5-15.5); WBC 6.2 k/uL (3.8-10.6)
[2020-10-08 08:44] LABS: ALT 20 U/L (4-49); AST 29 U/L (17-59); African American GFR (CKD) >90 (>60 ml/min/1.73 sqM); Albumin/Globulin Ratio 1.1; Alkaline Phosphatase 91 U/L (38-126); Anion Gap 4 mmol/L; Blood Urea Nitrogen 31 mg/dL (9-20); Calcium 8.3 mg/dL (8.4-10.2); Carbon Dioxide 40 mmol/L (22-30); Chloride 90 mmol/L (98-107); Globulin 2.8 g/dL; Glucose 239 mg/dL (74-99); Non-African American GFR(CKD) 79 (>60 ml/min/1.73 sqM); Potassium 4.2 mmol/L (3.5-5.1); Sodium 134 mmol/L (137-145); Total Bilirubin 0.3 mg/dL (0.2-1.3); Total Protein 5.8 g/dL (6.3-8.2)
[2020-10-08] MEDS: LOSARTAN 50 MG TAB PO SCH (10:07)
--- NOTE | 2020-10-08 10:32 | P.PN ---
Subjective Progress Note Date: 10/08/20 Principal diagnosis: Coronavirus pneumonia. COVID-19 pneumonia This is a very pleasant 80-year-old gentleman who follows with Dr. Anguiano as his primary care provider. He has a history of atrial fibrillation anticoagulated with warfarin, congestive heart failure, coronary artery disease with previous stent placement, iliac stents, diabetes mellitus, hyperlipidemia, hypertension, CVA/TIA he had recently been here following a fall with left ankle strain and then discharged to [facility] for rehabilitation. Yesterday apparently was having some shortness of breath and hypoxemia and tested positive for COVID-19 and was sent here to the emergency room. He has been maintaining O2 saturation 94% and greater on 2 L nasal cannula. Chest x-ray reveals bilateral infiltrates/atelectasis and possible underlying pulmonary fibrosis. CT angiogram ruled out pulmonary embolism. There is cardiomegaly with pleural fluid and pulmonary infiltrates with some fluid volume overload. 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 White count 3.3. Hemoglobin 14.1. INR 2.9. Sodium 138. Potassium 4.5. Creatinine 0.94. Troponin 0.067, 0.052. ProBNP 9730. Procalcitonin 0.16. LDH 456. C-reactive protein 2.9. On 10/04/2020 patient seen in follow-up on medical surgical floor. He is co mfortable, he is currently on 2 L of oxygen his pulse ox is 95%, he is resting comfortably in bed, he denies any worsening dyspnea, cough, no chest discomfort. Today is day 2 of Remdesivir, he also remains on Decadron 6 mg daily, prophylactic dose of Lovenox 40 mg daily. He is on multiple medications for his multiple chronic medical conditions. His follow-up chest x-ray today shows peripheral scattered infiltrates. It appears that he takes Coumadin for his history of A. fib, we don't have INR from today, his last INR from her yesterday was 2.9. His d-dimer was low at less than 0.17. White count was 3.3, hemoglobin was 14.1. His CO2 was 40, B1 is 24 creatinine was 0.94, and he did have a mild troponin leak, his proBNP was also noted to be quite elevated at 9730, his pro-calcitonin level was negative at 0.16. Blood culture from 10/02/2020 showed Staphylococcus epidermidis, likely contaminant, patient is currently on vancomycin. 10 denies any chest discomfort, no nausea vomiting or diarrhea. On 10/05/2020 patient seen in follow-up on medical surgical floor. He is resting comfortably in bed, presented to liters of oxygen pulse ox is 95-96%, afebrile, hemodynamically stable, lung sounds reveal diminished breath sounds with bibasilar crackles, remains on oral Lasix, he is also on oral Decadron, nebulized bronchodilators. Patient is supposed to get his third Remdesivir atul atment today. He is waiting on the midline IV placement. His INR today is 1.25, and pharmacy is dosing his warfarin. From Akira pneumonia perspective his oxygenation has not worsened. He seems to be fairly stable, in no acute respiratory distress, his sodium today is 134, potassium is 4.4, cl 92, CO2 30, B1 is 30 creatinine 0.97. The patient is seen today 10/06/2020 and follow-up on the regular medical floor. He is currently resting comfortably in bed. Awake and alert in no acute distress. Maintaining O2 saturations in the 90s on 2 L/m per nasal cannula. INR 1.4. Blood glucose 172. He remains on Remdesivir, dexamethasone, IV diuretics. Remains on vitamin supplements. Anticoagulated with warfarin. Progress note dated 10/07/2020. The patient is again seen today, in room 480. He is resting comfortably. He is doing better. He is currently on 2 L nasal cannula with saturation of 97%. Temperature, heart rate, respiratory rate, and blood pressure all normal. Today is day #4 of REM. After today, he will have 1 dose left, but the patient is clinically stable and could be discharged earlier. We will leave that up to the primary. The patient had a PT of 18.6 and INR 1.9 today. No additional labs were noted. A chest x-ray done yesterday shows cardiomegaly, small bilateral pleural effusions, prominent vascular markings, and mild changes of congestive heart failure. There is also some peripheral infiltrates, which could be caused by coronavirus. Progress note dated 10/08/2020. The patient is again seen today in room 480. The patient is resting comfortably. Today is day 5 of REM. From my perspective, the patient could be discharged. He currently is on 2 L nasal cannula. Saturations are excellent at 97%. White count 6.2, hemoglobin 14.3, hematocrit 46.3, and platelet count 152,000. Sodium 134, potassium 4.2, chlorides 90, CO2 40, anion gap 4, BUN 31, and creatinine 0.93. Chest x-ray from October 06 was reviewed. Objective - Vital Signs Vital signs: Vital Signs Temp 97.6 F 10/08/20 06:00 Pulse 70 10/08/20 06:00 Resp 18 10/08/20 02:00 BP 144/97 10/08/20 06:00 Pulse Ox 97 10/08/20 06:00 Intake & Output 10/07/20 10/08/20 10/08/20 18:59 06:59 18:59 Intake Total 1620 1620 Output Total 2200 3300 Balance -580 -1680 Intake: Oral 1620 1620 Output: Urine 2200 3300 Other: Voiding Method Urinal Urinal External Catheter # Voids 1 - Exam No acute distress, oriented 3. Currently on 2 L nasal cannula. HEENT examination is grossly unremarkable. . Neck supple. Full range of motion. No adenopathy thyromegaly or neck vein distention. Cardiovascular examination reveals regular rhythm rate. S1-S2 normal. No S3 or S4. No discernible murmur noted. Heart sounds are distant. Heart rate 70 bpm. Lungs reveal mild to moderate bibasilar crackles. No wheezes or rhonchi. Breath sounds are equal bilaterally. Saturations are 97% on 2 L. Abdomen soft bowel sounds are heard. No masses or tenderness. Extremities are intact. No cyanosis clubbing or edema. Skin is without rash or lesion. Neurologic examination is brief but nonfocal. - Labs CBC & Chem 7: 10/08/20 08:07 10/08/20 08:07 Labs: Abnormal Lab Results - Last 24 Hours (Table) 10/07/20 10/07/20 10/07/20 Range/Units 11:24 17:00 19:47 MCHC (31.0-37.0) g/dL PT (9.0-12.0) sec INR (<1.2) Sodium (137-145) mmol/L Chloride (98-107) mmol/L Carbon Dioxide (22-30) mmol/L BUN (9-20) mg/dL Glucose (74-99) mg/dL POC Glucose (mg/dL) 255 H 139 H 292 H (75-99) mg/dL Calcium (8.4-10.2) mg/dL Total Protein (6.3-8.2) g/dL Albumin (3.5-5.0) g/dL 10/08/20 10/08/20 10/08/20 Range/Units 05:23 07:29 08:07 MCHC 30.9 L (31.0-37.0) g/dL PT 22.0 H (9.0-12.0) sec INR 2.3 H (<1.2) Sodium (137-145) mmol/L Chloride (98-107) mmol/L Carbon Dioxide (22-30) mmol/L BUN (9-20) mg/dL Glucose (74-99) mg/dL POC Glucose (mg/dL) 210 H (75-99) mg/dL Calcium (8.4-10.2) mg/dL Total Protein (6.3-8.2) g/dL Albumin (3.5-5.0) g/dL 10/08/20 Range/Units 08:07 MCHC (31.0-37.0) g/dL PT (9.0-12.0) sec INR (<1.2) Sodium 134 L (137-145) mmol/L Chloride 90 L (98-107) mmol/L Carbon Dioxide 40 H (22-30) mmol/L BUN 31 H (9-20) mg/dL Glucose 239 H (74-99) mg/dL POC Glucose (mg/dL) (75-99) mg/dL Calcium 8.3 L (8.4-10.2) mg/dL Total Protein 5.8 L (6.3-8.2) g/dL Albumin 3.0 L (3.5-5.0) g/dL Microbiology - Last 24 Hours (Table) 10/02/20 16:55 Blood Culture - Preliminary Blood No Growth after 120 hours Assessment and Plan Assessment: 1 Acute hypoxemic respiratory failure secondary to COVID-19 pneumonia as well as acute exacerbation of systolic congestive heart failure. 2 Chronic obstructive pulmonary disease, not oxygen dependent. 3 Atrial fibrillation, anticoagulated with warfarin. 4 Coronary artery disease with previous stent placement. 5 History of CVA with residual right-sided weakness. 6 Ischemic cardiomyopathy with ejection fraction 35-40%. 7 Diabetes mellitus. 8 Recent fall with left ankle strain. 9 Hypertension. 10 Hyperlipidemia. 11 History of depression. 12 Chronic pain syndrome. 13 Poor overall functional performance based on the above-mentioned multiple co morbidities. Plan: Plan dated 10/07/2020. The patient continues to improve. The patient remains on REM, Decadron, and Coumadin. He is also receiving vitamin supplements. The patient's oxygen has been weaned down to 2 L. The patient could be discharged home without completing all 5 days of REM. We'll leave that up to the primary. Clinically he is doing much better. Additional recommendations and suggestions are forthcoming. We will continue to follow make recommendations where appropriate. Plan dated 10/08/2020. The patient is currently on 2 L nasal cannula. Saturations are 97%. The patient is on his last day of REM. The patient remains on Decadron, and Coumadin. He is also receiving vitamin supplements. Clinically he is doing well. The patient could be discharged. We will see the patient only as needed. He mentions to me today, that he is going to be discharged tomorrow according to the primary. We would be happy to come back and see the patient should've his respiratory status declined. No additional recommendations are made at this time. Time with Patient: Less than 30
[2020-10-08 11:42] LABS: Glucose,Whole Blood 194 mg/dL (75-99)
--- NOTE | 2020-10-08 11:46 | P.PN ---
Subjective Progress Note Date: 10/08/20 80-year-old gentleman who follows with Dr. Anguiano as his primary care provider. He has a history of atrial fibrillation anticoagulated with warfarin, congestive heart failure, coronary artery disease with previous stent placement, iliac stents, diabetes mellitus, hyperlipidemia, hypertension, CVA/TIA he had recently been here following a fall with left ankle strain and then discharged to [facility] for rehabilitation. Yesterday apparently was having some shortness of breath and hypoxemia and tested positive for COVID-19 and was sent here to the emergency room. He has been maintaining O2 saturation 94% and greater on 2 L nasal cannula. Chest x-ray reveals bilateral infiltrates/atelectasis and possible underlying pulmonary fibrosis. CT angiogram ruled out pulmonary embolism. There is cardiomegaly with pleural fluid and pulmonary infiltrates with some fluid volume overload. 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 White count 3.3. Hemoglobin 14.1. INR 2.9. Sodium 138. Potassium 4.5. Creatinine 0.94. Troponin 0.067, 0.052. ProBNP 9730. Procalcitonin 0.16. LDH 456. C- reactive protein 2.9. 10/04/2020 Patient is seen and evaluated resting comfortably in bed; currently on 2 L of O2 per nasal cannula with O2 saturation above 92% Vital signs are reviewed temperature 98.2, pulse 78, respiration 18 and blood pressure 135/84 Lab review shows a d-dimer of 0.17, WBC 3.3, hemoglobin 14.1, BUN/creatinine of 24/0.94 with elevated BNP of 9730, pro-calcitonin 0.16; blood cultures positive for staph epidermidis; patient is currently on IV vancomycin Patient remains on REM, Decadron 6 mg and Lovenox 40 mg daily Pulmonary on board and recommending to continue to titrate FiO2 down keeping O2 saturation greater than 92% 10/05: Patient has been afebrile, heart rate 75, blood pressure 109/63, pulse ox 96% on 2 L nasal cannula. Repeat blood work reveals INR 1.25. Pharmacy is dosing Coumadin. Sodium 134, potassium 4.4, chloride 92, CO2 38, BUN 30 and creatinine 0.97. Blood sugars are running between 127 and 353. Blood culture is Staphylococcus epidermidis most likely contamination. Patient is stating that his breathing status seems to be improving. He is currently on 2 L nasal cannula. Patient is on Remdesivir day #3/5 and patient is continued on oral Decadron. Discharge plan is to return to [facility] complete his course of subacute rehab. Most likely he will be ready in 48 hours. Midline has been ordered for IV access. 10/06: Patient complains of increasing cough and sputum but unable to bring it up. He states his breathing is not bad today. He does have been notable wheezing. Chest x-ray ordered and oral Lasix changed to IV Lasix 40 mg twice daily. Patient's been afebrile, heart rate 61, blood pressure 126/68, pulse ox 96% on 2 L nasal cannula. INR is 1.4 and pharmacy is dosing his Coumadin. Blood sugars running between 172 and 306. Patient remains on oral dexamethasone, Symbicort and albuterol inhaler, Remdesivir will be completed tomorrow. Most likely patient will be ready for discharge back to [facility] on . 10/07: Patient states he is feeling a little bit better from yesterday. He still has phlegm that he needs to bring up. He denies having any nausea or vomiting. Patient did have a bowel movement yesterday. Lungs sounds are improved from yesterday. Pablo wraps to be applied to the lower extremities. Patient remains afebrile, heart rate 63, blood pressure 141/70, pulse ox 97% on 2 L nasal cannula. Blood sugars are running between 186 and 255. INR 1.9. 10/08: Patient states that he is feeling worse from yesterday. He has continued wheezing and rhonchi. He has been afebrile, heart rate 70, blood pressure 144/97, pulse ox 97% on 2 L nasal cannula. We will increase his losartan to 50 mg daily. Blood sugars are uncontrolled mostly in the 200s up to 292. Levemir will be increased to 38 units at bedtime. Repeat blood work reveals INR 2.3. WBC 6.2, hemoglobin 14.3, platelet count 152. Sodium 134, potassium 4.2, chloride 90, CO2 40, BUN 31 and creatinine 0.93. Liver function tests normal. Patient is day #5/5 of Remdesivir. Patient has been cleared for discharge by pulmonary medicine but we'll plan to monitor the patient another 24 hours. Review Of Systems: Constitutional: No fever, no chills, no night sweats. No weight change. No weakness, fatigue or lethargy. No daytime sleepiness. EENT: No headache. No blurred vision or double vision, no loss of vision. No loss of Hearing, no ringing in the ears, no dizziness. No nasal drainage or congestion. No epistaxis. No sore throat. Lungs: Reports shortness of breath improving, reports cough, reports sputum production. No wheezing. Cardiovascular: No chest pain, no lower extremity edema. No palpitations. No paroxysmal nocturnal dyspnea. No orthopnea. No lightheadedness or dizziness. No syncopal episodes. Abdominal: No abdominal pain. No nausea, vomiting. No diarrhea. No constipation. No bloody or tarry stools.. No loss of appetite. Genitourinary: No dysuria, increased frequency, urgency. No urinary retention. Musculoskeletal: No myalgias. No muscle weakness, no gait dysfunction, no frequent falls. No back pain. No neck pain. Integumentary: No wounds, no lesions. No rash or pruritus. Neurologic: No aphasia. No facial droop. No change in mentation. No head injury. No headache. No paralysis. No paresthesia. Psychiatric: No depression. No anxiety. Endocrine: Mildly abnormal blood sugars. PHYSICAL EXAMINATION: GENERAL: The patient is alert and oriented x3, not in any acute distress. Well developed, well nourished. HEENT: Pupils are round and equally reacting to light. EOMI. No scleral icterus. No conjunctival pallor. Normocephalic, atraumatic. No pharyngeal erythema. No thyromegaly. CARDIOVASCULAR: S1 and S2 present. No murmurs, rubs, or gallops. PULMONARY: Scattered expiratory wheeze and a few scattered rhonchi. Diminished breath sounds bilateral bases. ABDOMEN: Soft, nontender, nondistended, normoactive bowel sounds. No palpable organomegaly. MUSCULOSKELETAL: No joint swelling or deformity. EXTREMITIES: No cyanosis, clubbing, or pedal edema. NEUROLOGICAL: Gross neurological examination did not reveal any focal deficits. SKIN: No rashes. ASSESSMENT AND PLAN 1. Acute hypoxemic respiratory failure secondary to suspected COVID-19 pneumonia as well as acute exacerbation of systolic heart failure - Pulmonary service on board and patient has been initiated on Remdesivir; Decadron 6 mg IV daily; anticoagulation with Coumadin; vitamin supplementation with vitamin D and C, continue Lasix 40 mg twice daily IV, repeat chest x-ray, continue Symbicort and albuterol inhaler. - Trend inflammatory markers 2. Chronic obstructive pulmonary disease, not oxygen dependent; continue with home inhaler therapy 3. Atrial fibrillation, anticoagulated with warfarin; patient remains rate controlled on metoprolol, 50 mg by mouth twice a day 4. Coronary artery disease/ischemic cardiomyopathy with previous stent placement; EF 35-40% 5. History of CVA with residual right-sided weakness 6. Diabetes mellitus type 2; monitor Accu-Cheks every 6 hours as with insulin sliding scale 7. Hypertension; metoprolol 50 mg by mouth twice a day; losartan 25 mg daily 8. Hyperlipidemia; Lipitor 40 mg by mouth daily at bedtime 9. Recurrent depression; Zoloft 100 mg daily along with trazodone 50mg po QHS DVT prophylaxis SCDs/anticoagulation with Coumadin CODE STATUS; full code DISCHARGE PLAN [place] on ride a Impression and plan of care have been directed as dictated by the signing physician. Anastacia Browning nurse practitioner acting as scribe for signing physician. Objective - Vital Signs Vital signs: Vital Signs Temp 97.6 F 10/08/20 06:00 Pulse 70 10/08/20 06:00 Resp 18 10/08/20 02:00 BP 144/97 10/08/20 06:00 Pulse Ox 97 10/08/20 06:00 Intake & Output 10/07/20 10/08/20 10/08/20 18:59 06:59 18:59 Intake Total 1620 1620 Output Total 2200 3300 Balance -580 -1680 Intake: Oral 1620 1620 Output: Urine 2200 3300 Other: Voiding Method Urinal Urinal # Voids 1 - Labs CBC & Chem 7: 10/08/20 08:07 10/08/20 08:07 Labs: Abnormal Lab Results - Last 24 Hours (Table) 10/07/20 10/07/20 10/07/20 Range/Units 07:27 11:24 17:00 PT 18.6 H (9.0-12.0) sec INR 1.9 H (<1.2) POC Glucose (mg/dL) 255 H 139 H (75-99) mg/dL 10/07/20 10/08/20 10/08/20 Range/Units 19:47 05:23 07:29 PT 22.0 H (9.0-12.0) sec INR 2.3 H (<1.2) POC Glucose (mg/dL) 292 H 210 H (75-99) mg/dL Microbiology - Last 24 Hours (Table) 10/02/20 16:55 Blood Culture - Preliminary Blood No Growth after 120 hours
[2020-10-08 15:10] VITALS: BMI 31.6
[2020-10-08 16:53] LABS: Glucose,Whole Blood 217 mg/dL (75-99)
[2020-10-08] MEDS: MAGNESIUM OXIDE 400 MG TAB PO SCH (17:31)
[2020-10-08] MEDS ORDERED: WARFARIN 3 MG TAB PO ONE (18:00)
[2020-10-08] MEDS: ATORVASTATIN 40 MG TAB PO SCH (20:01)
[2020-10-08] MEDS: MONTELUKAST 10 MG TAB PO SCH (20:01)
[2020-10-08] MEDS: MELATONIN 3 MG TABLET PO SCH (20:01)
[2020-10-08] MEDS: traZODone HCL 50 MG TAB PO PRN (20:01)
[2020-10-08] MEDS: INSULIN DETEMIR (LEVEMIR) 100 UNIT/ML SYR SQ SCH (20:01)
[2020-10-08 21:01] LABS: Glucose,Whole Blood 178 mg/dL (75-99)
[2020-10-09 06:40] LABS: HCT 43.4 % (39.0-53.0); HGB 13.6 gm/dL (13.0-17.5); Hypochromasia Slight; MCH 28.9 pg (25.0-35.0); MCHC 31.5 g/dL (31.0-37.0); Mean Platelet Volume 9.2; Platelet Count 132 k/uL (150-450); RBC 4.72 m/uL (4.30-5.90); RDW 13.3 % (11.5-15.5); WBC 5.9 k/uL (3.8-10.6)
[2020-10-09 06:50] LABS: INR 2.5 (<1.2); Prothrombin Time 24.3 sec (9.0-12.0)
[2020-10-09 07:28] LABS: Glucose,Whole Blood 130 mg/dL (75-99)
[2020-10-09] MEDS: INSULIN ASPART (NovoLOG) 100 UNIT/ML VIAL SQ SCH ×6 (07:28→17:17)
[2020-10-09 08:56] LABS: ALT 21 U/L (4-49); African American GFR (CKD) >90 (>60 ml/min/1.73 sqM); Albumin 2.7 g/dL (3.5-5.0); Anion Gap 4 mmol/L; Blood Urea Nitrogen 32 mg/dL (9-20); Calcium 7.9 mg/dL (8.4-10.2); Carbon Dioxide 39 mmol/L (22-30); Chloride 90 mmol/L (98-107); Globulin 2.8 g/dL; Glucose 177 mg/dL (74-99); Non-African American GFR(CKD) 85 (>60 ml/min/1.73 sqM); Sodium 133 mmol/L (137-145); Total Bilirubin 0.6 mg/dL (0.2-1.3); Total Protein 5.5 g/dL (6.3-8.2)
[2020-10-09 09:09] LABS: AST 33 U/L (17-59); Alkaline Phosphatase 66 U/L (38-126); Potassium 4.4 mmol/L (3.5-5.1)
[2020-10-09] MEDS: SYMBICORT 160-4.5 MCG INHALER INHALATION SCH ×2 (09:15→19:27)
[2020-10-09] MEDS: ALBUTEROL HFA INHALER INHALATION SCH ×3 (09:15→19:27)
[2020-10-09] MEDS: FUROSEMIDE 10 MG/ML 4 ML VIAL IV SCH ×2 (09:55→21:26)
[2020-10-09] MEDS: PANTOPRAZOLE 40 MG TABLET PO SCH ×2 (09:55→17:16)
[2020-10-09] MEDS: methylPREDNISolone SOD SUCCI 40 MG/ML 1 ML VIAL IV SCH ×2 (09:55→21:25)
[2020-10-09] MEDS: ZINC SULFATE 220 MG CAP PO SCH (09:55)
[2020-10-09] MEDS: SENNOSIDES-DOCUSATE SODIUM 1 EACH TAB PO SCH ×2 (09:55→17:16)
[2020-10-09] MEDS: ASCORBIC ACID 500 MG TAB PO SCH (09:55)
[2020-10-09] MEDS: SERTRALINE 100 MG TAB PO SCH (09:55)
[2020-10-09] MEDS: POTASSIUM CHLORIDE ER 20 MEQ TAB.ER PO SCH (09:56)
[2020-10-09] MEDS: LOSARTAN 50 MG TAB PO SCH (09:56)
[2020-10-09] MEDS: METHADONE 5 MG TAB PO SCH ×2 (09:56→21:25)
[2020-10-09] MEDS: SPIRONOLACTONE 25 MG TAB PO SCH (09:56)
[2020-10-09] MEDS: CHOLECALCIFEROL 25 MCG (1000 IU) TABLET PO SCH (09:56)
[2020-10-09] MEDS: GABAPENTIN 100 MG CAP PO SCH ×2 (09:56→21:25)
[2020-10-09] MEDS: CLOPIDOGREL 75 MG TAB PO SCH (09:57)
[2020-10-09] MEDS: SIMETHICONE 80 MG CHEWABLE PO SCH ×3 (09:58→17:17)
[2020-10-09] MEDS: METOPROLOL TARTRATE 50 MG TAB PO SCH ×2 (09:58→17:16)
[2020-10-09] MEDS: polyethylene glycoL 3350 17 GM POWD.PACK PO SCH (09:58)
[2020-10-09] MEDS: FLUTICASONE 50MCG/SPRAY NASAL 16GM EA NOSTRIL SCH (09:59)
[2020-10-09] MEDS: NON FORMULARY DRUG (Dapagliflozin Propanediol [Farxiga] 5 MG Tablet) PO SCH (09:59)
[2020-10-09] MEDS: NYSTATIN 100,000UNIT/GM CREAM 30 GM TUBE TOPICAL SCH ×3 (09:59→21:26)
[2020-10-09 12:22] LABS: Glucose,Whole Blood 191 mg/dL (75-99)
--- NOTE | 2020-10-09 12:22 | P.PN ---
Subjective Progress Note Date: 10/09/20 80-year-old gentleman who follows with Dr. Anguiano as his primary care provider. He has a history of atrial fibrillation anticoagulated with warfarin, congestive heart failure, coronary artery disease with previous stent placement, iliac stents, diabetes mellitus, hyperlipidemia, hypertension, CVA/TIA he had recently been here following a fall with left ankle strain and then discharged to [facility] for rehabilitation. Yesterday apparently was having some shortness of breath and hypoxemia and tested positive for COVID-19 and was sent here to the emergency room. He has been maintaining O2 saturation 94% and greater on 2 L nasal cannula. Chest x-ray reveals bilateral infiltrates/atelectasis and possible underlying pulmonary fibrosis. CT angiogram ruled out pulmonary embolism. There is cardiomegaly with pleural fluid and pulmonary infiltrates with some fluid volume overload. 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 White count 3.3. Hemoglobin 14.1. INR 2.9. Sodium 138. Potassium 4.5. Creatinine 0.94. Troponin 0.067, 0.052. ProBNP 9730. Procalcitonin 0.16. LDH 456. C- reactive protein 2.9. 10/04/2020 Patient is seen and evaluated resting comfortably in bed; currently on 2 L of O2 per nasal cannula with O2 saturation above 92% Vital signs are reviewed temperature 98.2, pulse 78, respiration 18 and blood pressure 135/84 Lab review shows a d-dimer of 0.17, WBC 3.3, hemoglobin 14.1, BUN/creatinine of 24/0.94 with elevated BNP of 9730, pro-calcitonin 0.16; blood cultures positive for staph epidermidis; patient is currently on IV vancomycin Patient remains on REM, Decadron 6 mg and Lovenox 40 mg daily Pulmonary on board and recommending to continue to titrate FiO2 down keeping O2 saturation greater than 92% 10/05: Patient has been afebrile, heart rate 75, blood pressure 109/63, pulse ox 96% on 2 L nasal cannula. Repeat blood work reveals INR 1.25. Pharmacy is dosing Coumadin. Sodium 134, potassium 4.4, chloride 92, CO2 38, BUN 30 and creatinine 0.97. Blood sugars are running between 127 and 353. Blood culture is Staphylococcus epidermidis most likely contamination. Patient is stating that his breathing status seems to be improving. He is currently on 2 L nasal cannula. Patient is on Remdesivir day #3/5 and patient is continued on oral Decadron. Discharge plan is to return to [facility] complete his course of subacute rehab. Most likely he will be ready in 48 hours. Midline has been ordered for IV access. 10/06: Patient complains of increasing cough and sputum but unable to bring it up. He states his breathing is not bad today. He does have been notable wheezing. Chest x-ray ordered and oral Lasix changed to IV Lasix 40 mg twice daily. Patient's been afebrile, heart rate 61, blood pressure 126/68, pulse ox 96% on 2 L nasal cannula. INR is 1.4 and pharmacy is dosing his Coumadin. Blood sugars running between 172 and 306. Patient remains on oral dexamethasone, Symbicort and albuterol inhaler, Remdesivir will be completed tomorrow. Most likely patient will be ready for discharge back to [facility] on . 10/07: Patient states he is feeling a little bit better from yesterday. He still has phlegm that he needs to bring up. He denies having any nausea or vomiting. Patient did have a bowel movement yesterday. Lungs sounds are improved from yesterday. Pablo wraps to be applied to the lower extremities. Patient remains afebrile, heart rate 63, blood pressure 141/70, pulse ox 97% on 2 L nasal cannula. Blood sugars are running between 186 and 255. INR 1.9. 10/08: Patient states that he is feeling worse from yesterday. He has continued wheezing and rhonchi. He has been afebrile, heart rate 70, blood pressure 144/97, pulse ox 97% on 2 L nasal cannula. We will increase his losartan to 50 mg daily. Blood sugars are uncontrolled mostly in the 200s up to 292. Levemir will be increased to 38 units at bedtime. Repeat blood work reveals INR 2.3. WBC 6.2, hemoglobin 14.3, platelet count 152. Sodium 134, potassium 4.2, chloride 90, CO2 40, BUN 31 and creatinine 0.93. Liver function tests normal. Patient is day #5/5 of Remdesivir. Patient has been cleared for discharge by pulmonary medicine but we'll plan to monitor the patient another 24 hours. 10/09: Patient feels that his respiratory status is not improving. He is very anxious about returning to [facility]. He voices things like I'm afraid I'm going to or I'm not going to make it. On his last hospitalization he did have an episode of unresponsiveness and received Narcan secondary to methadone. He continues to have cough intermittently with occasional sputum production of white sputum. Patient has been afebrile, heart rate 75, blood pressure 147/79, pulse ox 95% on 2 L nasal cannula. Repeat blood work reveals platelet count 132, WBC 5.9, hemoglobin 13.6. Sodium 133, potassium 4.4, chloride 90, CO2 39, BUN 32 and creatinine 0.82. Blood sugars are running between 130-217. Dexamethasone oral will be changed to Solu-Medrol 40 mg IV every 12 hours, blood sugars will need to be monitored closely and most likely adjustments made to his insulins. He will continue on Lasix 40 mg IV twice daily. Patient has had good urine output. PT and OT have assessed the patient with recommendations for subacute rehab and discharge plan remains to return to [facility] for subacute rehab. Review Of Systems: Constitutional: No fever, no chills, no night sweats. No weight change. No weakness, fatigue or lethargy. No daytime sleepiness. EENT: No headache. No blurred vision or double vision, no loss of vision. No loss of Hearing, no ringing in the ears, no dizziness. No nasal drainage or congestion. No epistaxis. No sore throat. Lungs: Reports shortness of breath improving, reports cough, reports sputum production. No wheezing. Cardiovascular: No chest pain, no lower extremity edema. No palpitations. No paroxysmal nocturnal dyspnea. No orthopnea. No lightheadedness or dizziness. No syncopal episodes. Abdominal: No abdominal pain. No nausea, vomiting. No diarrhea. No constipation. No bloody or tarry stools.. No loss of appetite. Genitourinary: No dysuria, increased frequency, urgency. No urinary retention. Musculoskeletal: No myalgias. No muscle weakness, no gait dysfunction, no frequent falls. No back pain. No neck pain. Integumentary: No wounds, no lesions. No rash or pruritus. Neurologic: No aphasia. No facial droop. No change in mentation. No head injury. No headache. No paralysis. No paresthesia. Psychiatric: Noted depression. Noted anxiety. Endocrine: Noted abnormal blood sugars with hyperglycemia. PHYSICAL EXAMINATION: GENERAL: The patient is alert and oriented x3, not in any acute distress. Well developed, well nourished. HEENT: Pupils are round and equally reacting to light. EOMI. No scleral icterus. No conjunctival pallor. Normocephalic, atraumatic. No pharyngeal erythema. No thyromegaly. CARDIOVASCULAR: Irregularly irregular, S1 and S2 present. No murmurs, rubs, or gallops. PULMONARY: Scattered inspiratory and expiratory wheeze and a few scattered rhonchi. Diminished breath sounds bilateral bases. ABDOMEN: Soft, nontender, nondistended, normoactive bowel sounds. No palpable organomegaly. MUSCULOSKELETAL: No joint swelling or deformity. EXTREMITIES: No cyanosis, clubbing, or pedal edema. NEUROLOGICAL: Gross neurological examination did not reveal any focal deficits. SKIN: No rashes. ASSESSMENT AND PLAN 1. Acute hypoxemic respiratory failure secondary to suspected COVID-19 pneumonia as well as acute exacerbation of systolic heart failure - Pulmonary service on board and patient has been initiated on Remdesivir and completed course; Decadron changed to IV Solu-Medrol 40 mg every 12 hours, continue Lasix 40 mg IV twice daily; anticoagulation with Coumadin; vitamin supplementation with vitamin D and C, continue Symbicort and albuterol inhaler. 2. Chronic obstructive pulmonary disease, not oxygen dependent; continue with home inhaler therapy 3. Chronic Atrial fibrillation. Continue Coumadin dosed by pharmacy. Continue metoprolol 50 mg twice daily. 4. Coronary artery disease/ischemic cardiomyopathy with previous stent placement; EF 35-40%. Continue Aldactone 12.5 mg daily, Lasix 40 mg IV twice daily, metoprolol, Lipitor 40 mg daily, Plavix 75 mg daily. 5. History of CVA with residual right-sided weakness, stable. 6. Diabetes mellitus type 2, insulin requiring uncontrolled with hyperglycemia. Continue Levemir and 38 units at bedtime, NovoLog 6 units twice daily at lunch and supper, 4 units with breakfast, NovoLog scale before meals and at bedtime. 7. Hypertension; metoprolol 50 mg by mouth twice a day; losartan increased to 50 mg daily 8. Hyperlipidemia; Lipitor 40 mg by mouth daily at bedtime 9. Recurrent depression; Zoloft 100 mg daily along with trazodone 50mg po QHS DVT prophylaxis SCDs/anticoagulation with Coumadin CODE STATUS; full code DISCHARGE PLAN Monday Impression and plan of care have been directed as dictated by the signing physician. Anastacia Browning nurse practitioner acting as scribe for signing physician. Objective - Vital Signs Vital signs: Vital Signs Temp 97.6 F 10/09/20 06:00 Pulse 75 10/09/20 06:00 Resp 18 10/09/20 06:00 BP 147/79 10/09/20 06:00 Pulse Ox 95 10/09/20 06:00 Intake & Output 10/08/20 10/09/20 10/09/20 18:59 06:59 18:59 Intake Total 1620 Output Total 1999 1000 Balance -1999 620 Weight 108.862 kg Intake: Oral 1620 Output: Urine 1999 1000 Other: Voiding Method External Catheter External Catheter # Bowel Movements 1 - Labs CBC & Chem 7: 10/09/20 06:17 10/09/20 08:17 Labs: Abnormal Lab Results - Last 24 Hours (Table) 10/08/20 10/08/20 10/08/20 Range/Units 08:07 08:07 11:41 MCHC 30.9 L (31.0-37.0) g/dL Plt Count (150-450) k/uL PT (9.0-12.0) sec INR (<1.2) Sodium 134 L (137-145) mmol/L Chloride 90 L (98-107) mmol/L Carbon Dioxide 40 H (22-30) mmol/L BUN 31 H (9-20) mg/dL Glucose 239 H (74-99) mg/dL POC Glucose (mg/dL) 194 H (75-99) mg/dL Calcium 8.3 L (8.4-10.2) mg/dL Total Protein 5.8 L (6.3-8.2) g/dL Albumin 3.0 L (3.5-5.0) g/dL 10/08/20 10/08/20 10/09/20 Range/Units 16:52 20:54 06:17 MCHC (31.0-37.0) g/dL Plt Count (150-450) k/uL PT 24.3 H (9.0-12.0) sec INR 2.5 H (<1.2) Sodium (137-145) mmol/L Chloride (98-107) mmol/L Carbon Dioxide (22-30) mmol/L BUN (9-20) mg/dL Glucose (74-99) mg/dL POC Glucose (mg/dL) 217 H 178 H (75-99) mg/dL Calcium (8.4-10.2) mg/dL Total Protein (6.3-8.2) g/dL Albumin (3.5-5.0) g/dL 10/09/20 10/09/20 Range/Units 06:17 07:27 MCHC (31.0-37.0) g/dL Plt Count 132 L (150-450) k/uL PT (9.0-12.0) sec INR (<1.2) Sodium (137-145) mmol/L Chloride (98-107) mmol/L Carbon Dioxide (22-30) mmol/L BUN (9-20) mg/dL Glucose (74-99) mg/dL POC Glucose (mg/dL) 130 H (75-99) mg/dL Calcium (8.4-10.2) mg/dL Total Protein (6.3-8.2) g/dL Albumin (3.5-5.0) g/dL Microbiology - Last 24 Hours (Table) 10/02/20 16:55 Blood Culture - Final Blood No Growth after 144 hours
[2020-10-09 16:56] LABS: Glucose,Whole Blood 228 mg/dL (75-99)
[2020-10-09] MEDS: MAGNESIUM OXIDE 400 MG TAB PO SCH (17:16)
[2020-10-09] MEDS ORDERED: WARFARIN 2 MG TAB PO ONE (18:00)
[2020-10-09 20:46] LABS: Glucose,Whole Blood 246 mg/dL (75-99)
[2020-10-09] MEDS: MONTELUKAST 10 MG TAB PO SCH (21:25)
[2020-10-09] MEDS: ATORVASTATIN 40 MG TAB PO SCH (21:25)
[2020-10-09] MEDS: INSULIN DETEMIR (LEVEMIR) 100 UNIT/ML SYR SQ SCH (21:25)
[2020-10-09] MEDS: MELATONIN 3 MG TABLET PO SCH (21:25)
[2020-10-10] MEDS: ALBUTEROL HFA INHALER INHALATION SCH ×3 (07:28→19:47)
[2020-10-10] MEDS: SYMBICORT 160-4.5 MCG INHALER INHALATION SCH ×2 (07:28→19:47)
[2020-10-10 07:30] LABS: Glucose,Whole Blood 219 mg/dL (75-99)
[2020-10-10 09:01] LABS: ALT 26 U/L (4-49); AST 31 U/L (17-59); African American GFR (CKD) >90 (>60 ml/min/1.73 sqM); Albumin/Globulin Ratio 1.1; Alkaline Phosphatase 90 U/L (38-126); Anion Gap 5 mmol/L; Blood Urea Nitrogen 34 mg/dL (9-20); Calcium 8.4 mg/dL (8.4-10.2); Carbon Dioxide 40 mmol/L (22-30); Chloride 89 mmol/L (98-107); Globulin 2.8 g/dL; Glucose 268 mg/dL (74-99); INR 2.6 (<1.2); Non-African American GFR(CKD) 82 (>60 ml/min/1.73 sqM); Potassium 4.1 mmol/L (3.5-5.1); Prothrombin Time 25.4 sec (9.0-12.0); Sodium 134 mmol/L (137-145); Total Bilirubin 0.5 mg/dL (0.2-1.3); Total Protein 5.8 g/dL (6.3-8.2)
[2020-10-10] MEDS: FUROSEMIDE 10 MG/ML 4 ML VIAL IV SCH ×2 (09:35→21:09)
[2020-10-10] MEDS: polyethylene glycoL 3350 17 GM POWD.PACK PO SCH (09:55)
[2020-10-10] MEDS: INSULIN ASPART (NovoLOG) 100 UNIT/ML VIAL SQ SCH ×6 (09:55→17:45)
[2020-10-10] MEDS: methylPREDNISolone SOD SUCCI 40 MG/ML 1 ML VIAL IV SCH ×2 (09:55→21:10)
[2020-10-10] MEDS: SENNOSIDES-DOCUSATE SODIUM 1 EACH TAB PO SCH ×2 (09:56→17:44)
[2020-10-10] MEDS: SERTRALINE 50 MG TAB PO SCH (09:56)
[2020-10-10] MEDS: LOSARTAN 50 MG TAB PO SCH (09:56)
[2020-10-10] MEDS: CHOLECALCIFEROL 25 MCG (1000 IU) TABLET PO SCH (09:56)
[2020-10-10] MEDS: PANTOPRAZOLE 40 MG TABLET PO SCH ×2 (09:57→17:44)
[2020-10-10] MEDS: CLOPIDOGREL 75 MG TAB PO SCH (09:57)
[2020-10-10] MEDS: METHADONE 5 MG TAB PO SCH ×2 (09:57→21:09)
[2020-10-10] MEDS: POTASSIUM CHLORIDE ER 20 MEQ TAB.ER PO SCH (09:57)
[2020-10-10] MEDS: ASCORBIC ACID 500 MG TAB PO SCH (09:58)
[2020-10-10] MEDS: SPIRONOLACTONE 25 MG TAB PO SCH (09:58)
[2020-10-10] MEDS: METOPROLOL TARTRATE 50 MG TAB PO SCH ×2 (09:58→17:44)
[2020-10-10] MEDS: GABAPENTIN 100 MG CAP PO SCH ×2 (09:58→21:09)
[2020-10-10] MEDS: ZINC SULFATE 220 MG CAP PO SCH (09:58)
--- NOTE | 2020-10-10 10:01 | P.PN ---
Subjective Progress Note Date: 10/10/20 Progress Note Date: 10/10/20 80-year-old gentleman who follows with Dr. Anguiano as his primary care provider. He has a history of atrial fibrillation anticoagulated with warfarin, congestive heart failure, coronary artery disease with previous stent placement, iliac stents, diabetes mellitus, hyperlipidemia, hypertension, CVA/TIA he had recently been here following a fall with left ankle strain and then discharged to [facility] for rehabilitation. Yesterday apparently was having some shortness of breath and hypoxemia and tested positive for COVID-19 and was sent here to the emergency room. He has been maintaining O2 saturation 94% and greater on 2 L nasal cannula. Chest x-ray reveals bilateral infiltrates/atelectasis and possible underlying pulmonary fibrosis. CT angiogram ruled out pulmonary embolism. There is cardiomegaly with pleural fluid and pulmonary infiltrates with some fluid volume overload. 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 White count 3.3. Hemoglobin 14.1. INR 2.9. Sodium 138. Potassium 4.5. Creatinine 0.94. Troponin 0.067, 0.052. ProBNP 9730. Procalcitonin 0.16. LDH 456. C- reactive protein 2.9. 10/04/2020 Patient is seen and evaluated resting comfortably in bed; currently on 2 L of O2 per nasal cannula with O2 saturation above 92% Vital signs are reviewed temperature 98.2, pulse 78, respiration 18 and blood pressure 135/84 Lab review shows a d-dimer of 0.17, WBC 3.3, hemoglobin 14.1, BUN/creatinine of 24/0.94 with elevated BNP of 9730, pro-calcitonin 0.16; blood cultures positive for staph epidermidis; patient is currently on IV vancomycin Patient remains on REM, Decadron 6 mg and Lovenox 40 mg daily Pulmonary on board and recommending to continue to titrate FiO2 down keeping O2 saturation greater than 92% 10/05: Patient has been afebrile, heart rate 75, blood pressure 109/63, pulse ox 96% on 2 L nasal cannula. Repeat blood work reveals INR 1.25. Pharmacy is dosing Coumadin. Sodium 134, potassium 4.4, chloride 92, CO2 38, BUN 30 and creatinine 0.97. Blood sugars are running between 127 and 353. Blood culture is Staphylococcus epidermidis most likely contamination. Patient is stating that his breathing status seems to be improving. He is currently on 2 L nasal cannula. Patient is on Remdesivir day #3/5 and patient is continued on oral Decadron. Discharge plan is to return to [facility] complete his course of subacute rehab. Most likely he will be ready in 48 hours. Midline has been ordered for IV access. 10/06: Patient complains of increasing cough and sputum but unable to bring it up. He states his breathing is not bad today. He does have been notable wheezing. Chest x-ray ordered and oral Lasix changed to IV Lasix 40 mg twice daily. Patient's been afebrile, heart rate 61, blood pressure 126/68, pulse ox 96% on 2 L nasal cannula. INR is 1.4 and pharmacy is dosing his Coumadin. Blood sugars running between 172 and 306. Patient remains on oral dexamethasone, Symbicort and albuterol inhaler, Remdesivir will be completed tomorrow. Most likely patient will be ready for discharge back to [facility] on . 10/07: Patient states he is feeling a little bit better from yesterday. He still has phlegm that he needs to bring up. He denies having any nausea or vomiting. Patient did have a bowel movement yesterday. Lungs sounds are improved from yesterday. Pablo wraps to be applied to the lower extremities. Patient remains afebrile, heart rate 63, blood pressure 141/70, pulse ox 97% on 2 L nasal cannula. Blood sugars are running between 186 and 255. INR 1.9. 10/08: Patient states that he is feeling worse from yesterday. He has continued wheezing and rhonchi. He has been afebrile, heart rate 70, blood pressure 144/97, pulse ox 97% on 2 L nasal cannula. We will increase his losartan to 50 mg daily. Blood sugars are uncontrolled mostly in the 200s up to 292. Levemir will be increased to 38 units at bedtime. Repeat blood work reveals INR 2.3. WBC 6.2, hemoglobin 14.3, platelet count 152. Sodium 134, potassium 4.2, chloride 90, CO2 40, BUN 31 and creatinine 0.93. Liver function tests normal. Patient is day #5/5 of Remdesivir. Patient has been cleared for discharge by pulmonary medicine but we'll plan to monitor the patient another 24 hours. 10/09: Patient feels that his respiratory status is not improving. He is very anxious about returning to [facility]. He voices things like I'm afraid I'm going to or I'm not going to make it. On his last hospitalization he did have an episode of unresponsiveness and received Narcan secondary to methadone. He continues to have cough intermittently with occasional sputum production of white sputum. Patient has been afebrile, heart rate 75, blood pressure 147/79, pulse ox 95% on 2 L nasal cannula. Repeat blood work reveals platelet count 132, WBC 5.9, hemoglobin 13.6. Sodium 133, potassium 4.4, chloride 90, CO2 39, BUN 32 and creatinine 0.82. Blood sugars are running between 130-217. Dexamethasone oral will be changed to Solu-Medrol 40 mg IV every 12 hours, blood sugars will need to be monitored closely and most likely adjustments made to his insulins. He will continue on Lasix 40 mg IV twice daily. Patient has had good urine output. PT and OT have assessed the patient with recommendations for subacute rehab and discharge plan remains to return to [facility] for subacute rehab. 10/10: Patient is sitting up in bed in no apparent distress, is feeling a lot better today he denies any chest pain he is little bit better shortness of breath, he continues to have some cough production, i spoke with his on the phone and gave her an updated about his current condition, patient will be maintained on the same treatment plan, he would be transferred to [facility] on monday. Review Of Systems: Constitutional: No fever, no chills, no night sweats. No weight change. positive for weakness, positive for fatigue or lethargy. No daytime sleepiness. HEENT: No headache. No blurred vision or double vision, no loss of vision. No loss of Hearing, no ringing in the ears, no dizziness. No nasal drainage or congestion. No epistaxis. No sore throat. Lungs: Reports shortness of breath improving, reports cough, reports sputum production. No wheezing. Cardiovascular: No chest pain, positive for lower extremity edema. No palpitat ions. No paroxysmal nocturnal dyspnea. No orthopnea. No lightheadedness or dizziness. No syncopal episodes. Abdominal: No abdominal pain. No nausea, vomiting. No diarrhea. No constipation. No bloody or tarry stools.. No loss of appetite. Genitourinary: No dysuria, increased frequency, urgency. No urinary retention. Musculoskeletal: No myalgias. positive for muscle weakness, positive for gait dysfunction, positive for frequent falls. No back pain. No neck pain. Integumentary: No wounds, no lesions. No rash or pruritus. Neurologic: No aphasia. No facial droop. No change in mentation. No head injury. No headache.right upper extremity weakness and bilateral lower extremities weak ness. Psychiatric: Noted depression. Noted anxiety. Endocrine: Noted abnormal blood sugars with hyperglycemia. PHYSICAL EXAMINATION: GENERAL: The patient is alert and oriented x3, mild respiratory distress. Well developed, well nourished. HEENT: Pupils are round and equally reacting to light. EOMI. No scleral icterus. No conjunctival pallor. Normocephalic, atraumatic. No pharyngeal erythema. No thyromegaly. CARDIOVASCULAR: first heart sound is depressed, second heart sound is normal, irregularly irregular, there is systolic ejection murmur 2/6 left sternal bonita rder. PULMONARY: Scattered inspiratory and expiratory wheeze and a few scattered rhonchi. Diminished breath sounds bilateral bases. ABDOMEN: Soft, nontender, nondistended, normoactive bowel sounds. No palpable organomegaly. MUSCULOSKELETAL: No joint swelling or deformity. EXTREMITIES: There is +2 edema, no calf tenderness, dorsalis pedis +1 bilaterally NEUROLOGICAL: Patient is awake alert and oriented 3, cranial nerves III-12 appear grossly intact, muscle power where 3 out of 5 in the right upper extremity and bilateral lower extremities and 4 out of 5 in the left upper extremity, deep tender fascicular depressed. SKIN: No rashes. ASSESSMENT AND PLAN 1. Acute hypoxemic respiratory failure secondary to suspected COVID-19 pneumonia as well as acute exacerbation of systolic heart failure - Pulmonary service on board and patient has been initiated on Remdesivir and completed course; Decadron changed to IV Solu-Medrol 40 mg every 12 hours, continue Lasix 40 mg IV twice daily; anticoagulation with Coumadin; vitamin supplementation with vitamin D and C, continue Symbicort and albuterol inhaler. 2. Chronic obstructive pulmonary disease, not oxygen dependent; continue with home inhaler therapy 3. Chronic Atrial fibrillation. Continue Coumadin dosed by pharmacy. Continue metoprolol 50 mg twice daily. 4. Coronary artery disease/ischemic cardiomyopathy with previous stent placement; EF 35-40%. Continue Aldactone 12.5 mg daily, Lasix 40 mg IV twice daily, metoprolol, Lipitor 40 mg daily, Plavix 75 mg daily. 5. History of CVA with residual right-sided weakness, stable. 6. Diabetes mellitus type 2, insulin requiring uncontrolled with hyperglycemia. Continue Levemir and 38 units at bedtime, NovoLog 6 units twice daily at lunch and supper, 4 units with breakfast, NovoLog scale before meals and at bedtime. 7. Hypertension; metoprolol 50 mg by mouth twice a day; losartan increased to 50 mg daily 8. Hyperlipidemia; Lipitor 40 mg by mouth daily at bedtime 9. Recurrent depression: We will increase Zoloft 150 mg orally once every day as the patient has increased thoughts about and dying. 10. Chronic pain syndrome. Currently on methadone 5 mg orally twice every day. 11. DVT prophylaxis. Bilateral knee-high JOSE hose, continue with Coumadin keep INR 2-3. 12. GI prophylaxis. Continue patient on PPI. CODE STATUS; full code DISCHARGE PLAN [facility] on Monday Objective - Vital Signs Vital signs: Vital Signs Temp 97.5 F L 10/10/20 06:00 Pulse 67 10/10/20 06:00 Resp 16 10/10/20 06:00 BP 147/72 10/10/20 06:00 Pulse Ox 95 10/10/20 07:29 Intake & Output 10/09/20 10/10/20 10/10/20 18:59 06:59 18:59 Output Total 1800 1200 400 Balance -1800 -1200 -400 Output: Urine 1800 1200 400 Other: Voiding Method External Catheter Urinal # Bowel Movements 2 - Labs CBC & Chem 7: 10/09/20 06:17 10/10/20 08:18 Labs: Abnormal Lab Results - Last 24 Hours (Table) 10/09/20 10/09/20 10/09/20 Range/Units 08:17 12:21 16:55 Sodium 133 L (137-145) mmol/L Chloride 90 L (98-107) mmol/L Carbon Dioxide 39 H (22-30) mmol/L BUN 32 H (9-20) mg/dL Glucose 177 H (74-99) mg/dL POC Glucose (mg/dL) 191 H 228 H (75-99) mg/dL Calcium 7.9 L (8.4-10.2) mg/dL Total Protein 5.5 L (6.3-8.2) g/dL Albumin 2.7 L (3.5-5.0) g/dL 10/09/20 10/10/20 Range/Units 20:44 07:29 Sodium (137-145) mmol/L Chloride (98-107) mmol/L Carbon Dioxide (22-30) mmol/L BUN (9-20) mg/dL Glucose (74-99) mg/dL POC Glucose (mg/dL) 246 H 219 H (75-99) mg/dL Calcium (8.4-10.2) mg/dL Total Protein (6.3-8.2) g/dL Albumin (3.5-5.0) g/dL
[2020-10-10 11:05] LABS: Glucose,Whole Blood 338 mg/dL (75-99)
[2020-10-10] MEDS: NYSTATIN 100,000UNIT/GM CREAM 30 GM TUBE TOPICAL SCH (11:23)
[2020-10-10] MEDS: NON FORMULARY DRUG (Dapagliflozin Propanediol [Farxiga] 5 MG Tablet) PO SCH (11:24)
[2020-10-10] MEDS: SIMETHICONE 80 MG CHEWABLE PO SCH ×2 (11:24→11:26)
[2020-10-10] MEDS: FLUTICASONE 50MCG/SPRAY NASAL 16GM EA NOSTRIL SCH (11:24)
[2020-10-10 16:41] LABS: Glucose,Whole Blood 284 mg/dL (75-99)
[2020-10-10] MEDS: MAGNESIUM OXIDE 400 MG TAB PO SCH (17:45)
[2020-10-10] MEDS ORDERED: WARFARIN 3 MG TAB PO ONE (18:00)
[2020-10-10 20:33] LABS: Glucose,Whole Blood 216 mg/dL (75-99)
[2020-10-10] MEDS: MELATONIN 3 MG TABLET PO SCH (21:09)
[2020-10-10] MEDS: ATORVASTATIN 40 MG TAB PO SCH (21:09)
[2020-10-10] MEDS: MONTELUKAST 10 MG TAB PO SCH (21:09)
[2020-10-10] MEDS: INSULIN DETEMIR (LEVEMIR) 100 UNIT/ML SYR SQ SCH (21:39)
[2020-10-10 22:28] LABS: Basophils % (A) 0 %; Eosinophils % (A) 0 %; HCT 46.6 % (39.0-53.0); HGB 14.2 gm/dL (13.0-17.5); Hypochromasia Marked; Lymphocytes # (A) 0.9 k/uL (1.0-4.8); Lymphocytes % (A) 13 %; MCHC 30.5 g/dL (31.0-37.0); MCV 95.3 fL (80.0-100.0); Mean Platelet Volume 10.5; Monocytes # (A) 0.4 k/uL (0-1.0); Monocytes % (A) 5 %; Neutrophils # (A) 5.7 k/uL (1.3-7.7); Neutrophils % (A) 80 %; Platelet Count 194 k/uL (150-450); RBC 4.89 m/uL (4.30-5.90); RDW 13.7 % (11.5-15.5); WBC 7.2 k/uL (3.8-10.6)
[2020-10-11 07:00] LABS: Glucose,Whole Blood 168 mg/dL (75-99)
[2020-10-11 07:04] LABS: INR 3.3 (<1.2); Prothrombin Time 31.3 sec (9.0-12.0)
[2020-10-11] MEDS: SIMETHICONE 80 MG CHEWABLE PO SCH ×4 (07:26→18:00)
[2020-10-11] MEDS: NYSTATIN 100,000UNIT/GM CREAM 30 GM TUBE TOPICAL SCH ×4 (07:26→20:59)
[2020-10-11] MEDS: SYMBICORT 160-4.5 MCG INHALER INHALATION SCH ×2 (07:27→19:53)
[2020-10-11] MEDS: ALBUTEROL HFA INHALER INHALATION SCH ×5 (07:27→19:53)
[2020-10-11] MEDS: INSULIN ASPART (NovoLOG) 100 UNIT/ML VIAL SQ SCH ×6 (07:51→18:00)
[2020-10-11] MEDS: FUROSEMIDE 10 MG/ML 4 ML VIAL IV SCH (07:51)
[2020-10-11] MEDS: polyethylene glycoL 3350 17 GM POWD.PACK PO SCH (07:51)
[2020-10-11] MEDS: SERTRALINE 50 MG TAB PO SCH (07:52)
[2020-10-11] MEDS: METHADONE 5 MG TAB PO SCH ×2 (07:52→20:58)
[2020-10-11] MEDS: CLOPIDOGREL 75 MG TAB PO SCH (07:52)
[2020-10-11] MEDS: PANTOPRAZOLE 40 MG TABLET PO SCH ×2 (07:52→18:00)
[2020-10-11] MEDS: ASCORBIC ACID 500 MG TAB PO SCH (07:52)
[2020-10-11] MEDS: SENNOSIDES-DOCUSATE SODIUM 1 EACH TAB PO SCH ×2 (07:52→17:59)
[2020-10-11] MEDS: LOSARTAN 50 MG TAB PO SCH (07:53)
[2020-10-11] MEDS: ZINC SULFATE 220 MG CAP PO SCH (07:53)
[2020-10-11] MEDS: CHOLECALCIFEROL 25 MCG (1000 IU) TABLET PO SCH (07:53)
[2020-10-11] MEDS: POTASSIUM CHLORIDE ER 20 MEQ TAB.ER PO SCH (07:53)
[2020-10-11] MEDS: METOPROLOL TARTRATE 50 MG TAB PO SCH ×2 (07:53→17:59)
[2020-10-11] MEDS: GABAPENTIN 100 MG CAP PO SCH ×2 (07:53→20:58)
[2020-10-11] MEDS: methylPREDNISolone SOD SUCCI 40 MG/ML 1 ML VIAL IV SCH ×2 (07:54→20:59)
[2020-10-11] MEDS: SPIRONOLACTONE 25 MG TAB PO SCH (07:57)
[2020-10-11] MEDS: NON FORMULARY DRUG (Dapagliflozin Propanediol [Farxiga] 5 MG Tablet) PO SCH (07:57)
[2020-10-11] MEDS: FLUTICASONE 50MCG/SPRAY NASAL 16GM EA NOSTRIL SCH (07:57)
--- NOTE | 2020-10-11 11:44 | P.PN ---
Subjective Progress Note Date: 10/11/20 Progress Note Date: 10/11/20 80-year-old gentleman who follows with Dr. Anguiano as his primary care provider. He has a history of atrial fibrillation anticoagulated with warfarin, congestive heart failure, coronary artery disease with previous stent placement, iliac stents, diabetes mellitus, hyperlipidemia, hypertension, CVA/TIA he had recently been here following a fall with left ankle strain and then discharged to [facility] for rehabilitation. Yesterday apparently was having some shortness of breath and hypoxemia and tested positive for COVID-19 and was sent here to the emergency room. He has been maintaining O2 saturation 94% and greater on 2 L nasal cannula. Chest x-ray reveals bilateral infiltrates/atelectasis and possible underlying pulmonary fibrosis. CT angiogram ruled out pulmonary embolism. There is cardiomegaly with pleural fluid and pulmonary infiltrates with some fluid volume overload. 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 White count 3.3. Hemoglobin 14.1. INR 2.9. Sodium 138. Potassium 4.5. Creatinine 0.94. Troponin 0.067, 0.052. ProBNP 9730. Procalcitonin 0.16. LDH 456. C- reactive protein 2.9. 10/04/2020 Patient is seen and evaluated resting comfortably in bed; currently on 2 L of O2 per nasal cannula with O2 saturation above 92% Vital signs are reviewed temperature 98.2, pulse 78, respiration 18 and blood pressure 135/84 Lab review shows a d-dimer of 0.17, WBC 3.3, hemoglobin 14.1, BUN/creatinine of 24/0.94 with elevated BNP of 9730, pro-calcitonin 0.16; blood cultures positive for staph epidermidis; patient is currently on IV vancomycin Patient remains on REM, Decadron 6 mg and Lovenox 40 mg daily Pulmonary on board and recommending to continue to titrate FiO2 down keeping O2 saturation greater than 92% 10/05: Patient has been afebrile, heart rate 75, blood pressure 109/63, pulse ox 96% on 2 L nasal cannula. Repeat blood work reveals INR 1.25. Pharmacy is dosing Coumadin. Sodium 134, potassium 4.4, chloride 92, CO2 38, BUN 30 and creatinine 0.97. Blood sugars are running between 127 and 353. Blood culture is Staphylococcus epidermidis most likely contamination. Patient is stating that his breathing status seems to be improving. He is currently on 2 L nasal cannula. Patient is on Remdesivir day #3/5 and patient is continued on oral Decadron. Discharge plan is to return to [facility] complete his course of subacute rehab. Most likely he will be ready in 48 hours. Midline has been ordered for IV access. 10/06: Patient complains of increasing cough and sputum but unable to bring it up. He states his breathing is not bad today. He does have been notable wheezing. Chest x-ray ordered and oral Lasix changed to IV Lasix 40 mg twice daily. Patient's been afebrile, heart rate 61, blood pressure 126/68, pulse ox 96% on 2 L nasal cannula. INR is 1.4 and pharmacy is dosing his Coumadin. Blood sugars running between 172 and 306. Patient remains on oral dexamethasone, Symbicort and albuterol inhaler, Remdesivir will be completed tomorrow. Most likely patient will be ready for discharge back to [facility] on . 10/07: Patient states he is feeling a little bit better from yesterday. He still has phlegm that he needs to bring up. He denies having any nausea or vomiting. Patient did have a bowel movement yesterday. Lungs sounds are improved from yesterday. Pablo wraps to be applied to the lower extremities. Patient remains afebrile, heart rate 63, blood pressure 141/70, pulse ox 97% on 2 L nasal cannula. Blood sugars are running between 186 and 255. INR 1.9. 10/08: Patient states that he is feeling worse from yesterday. He has continued wheezing and rhonchi. He has been afebrile, heart rate 70, blood pressure 144/97, pulse ox 97% on 2 L nasal cannula. We will increase his losartan to 50 mg daily. Blood sugars are uncontrolled mostly in the 200s up to 292. Levemir will be increased to 38 units at bedtime. Repeat blood work reveals INR 2.3. WBC 6.2, hemoglobin 14.3, platelet count 152. Sodium 134, potassium 4.2, chloride 90, CO2 40, BUN 31 and creatinine 0.93. Liver function tests normal. Patient is day #5/5 of Remdesivir. Patient has been cleared for discharge by pulmonary medicine but we'll plan to monitor the patient another 24 hours. 10/09: Patient feels that his respiratory status is not improving. He is very anxious about returning to [facility]. He voices things like I'm afraid I'm going to or I'm not going to make it. On his last hospitalization he did have an episode of unresponsiveness and received Narcan secondary to methadone. He continues to have cough intermittently with occasional sputum production of white sputum. Patient has been afebrile, heart rate 75, blood pressure 147/79, pulse ox 95% on 2 L nasal cannula. Repeat blood work reveals platelet count 132, WBC 5.9, hemoglobin 13.6. Sodium 133, potassium 4.4, chloride 90, CO2 39, BUN 32 and creatinine 0.82. Blood sugars are running between 130-217. Dexamethasone oral will be changed to Solu-Medrol 40 mg IV every 12 hours, blood sugars will need to be monitored closely and most likely adjustments made to his insulins. He will continue on Lasix 40 mg IV twice daily. Patient has had good urine output. PT and OT have assessed the patient with recommendations for subacute rehab and discharge plan remains to return to [facility] for subacute rehab. 10/10: Patient is sitting up in bed in no apparent distress, is feeling a lot better today he denies any chest pain he is little bit better shortness of breath, he continues to have some cough production, i spoke with his on the phone and gave her an updated about his current condition, patient will be maintained on the same treatment plan, he would be transferred to [facility] on monday. 10/11: Patient sitting up in bed continues to have increased coughing continues to be a bit short of breath, he is requiring 2 L nasal cannula he has no chest pain this time, he has no abdominal pain he has a good bowel movement, patient was supposed to be transferred to [facility] tomorrow morning is currently on Solu- Medrol 40 mg IV push every 12 hours, switch his albuterol to 2 puffs 4 times a day around the clock, continue Symbicort 2 puffs twice every day, monitor the patient for another 24 hours continue Lasix 40 mg IV push every 12 hours, physical therapy evaluation tomorrow morning. Review Of Systems: Constitutional: No fever, no chills, no night sweats. No weight change. positive for weakness, positive for fatigue or lethargy. No daytime sleepiness. HEENT: No headache. No blurred vision or double vision, no loss of vision. No loss of Hearing, no ringing in the ears, no dizziness. No nasal drainage or congestion. No epistaxis. No sore throat. Lungs: Reports shortness of breath improving, reports cough, reports sputum production. No wheezing. Cardiovascular: No chest pain, positive for lower extremity edema. No palpitations. No paroxysmal nocturnal dyspnea. No orthopnea. No lightheadedness or dizziness. No syncopal episodes. Abdominal: No abdominal pain. No nausea, vomiting. No diarrhea. No constipation. No bloody or tarry stools.. No loss of appetite. Genitourinary: No dysuria, increased frequency, urgency. No urinary retention. Musculoskeletal: No myalgias. positive for muscle weakness, positive for gait dysfunction, positive for frequent falls. No back pain. No neck pain. Integumentary: No wounds, no lesions. No rash or pruritus. Neurologic: No aphasia. No facial droop. No change in mentation. No head injury. No headache.right upper extremity weakness and bilateral lower extremities weakness. Psychiatric: Noted depression. Noted anxiety. Endocrine: Noted abnormal blood sugars with hyperglycemia. PHYSICAL EXAMINATION: GENERAL: The patient is alert and oriented x3, mild respiratory distress. Well developed, well nourished. HEENT: Pupils are round and equally reacting to light. EOMI. No scleral icterus. No conjunctival pallor. Normocephalic, atraumatic. No pharyngeal erythema. No thyromegaly. CARDIOVASCULAR: first heart sound is depressed, second heart sound is normal, irregularly irregular, there is systolic ejection murmur 2/6 left sternal borde r. PULMONARY: Scattered inspiratory and expiratory wheeze and a few scattered rhonchi. Diminished breath sounds bilateral bases. ABDOMEN: Soft, nontender, nondistended, normoactive bowel sounds. No palpable organomegaly. MUSCULOSKELETAL: No joint swelling or deformity. EXTREMITIES: There is +1 edema, no calf tenderness, dorsalis pedis +1 bilaterally NEUROLOGICAL: Patient is awake alert and oriented 3, cranial nerves III-12 appear grossly intact, muscle power where 3 out of 5 in the right upper extremity and bilateral lower extremities and 4 out of 5 in the left upper extremity, deep tendon reflexes are depressed. SKIN: No rashes. ASSESSMENT AND PLAN 1. Acute hypoxemic respiratory failure secondary to suspected COVID-19 pneumonia as well as acute exacerbation of systolic heart failure - Pulmonary service on board and patient has been initiated on Remdesivir and completed course; Decadron changed to IV Solu-Medrol 40 mg every 12 hours, continue Lasix 40 mg IV twice daily; anticoagulation with Coumadin; vitamin supplementation with vitamin D and C, continue Symbicort and albuterol inhaler [id number]. 2. Chronic obstructive pulmonary disease, not oxygen dependent; continue with home inhaler therapy 3. Chronic Atrial fibrillation. Continue Coumadin dosed by pharmacy. Continue metoprolol 50 mg twice daily. 4. Coronary artery disease/ischemic cardiomyopathy with previous stent placement; EF 35-40%. Continue Aldactone 12.5 mg daily, Lasix 40 mg IV twice daily, metoprolol, Lipitor 40 mg daily, Plavix 75 mg daily. 5. History of CVA with residual right-sided weakness, stable. 6. Diabetes mellitus type 2, insulin requiring uncontrolled with hyperglycemia. Continue Levemir and 38 units at bedtime, NovoLog 6 units twice daily at lunch and supper, 4 units with breakfast, NovoLog scale before meals and at bedtime. 7. Hypertension; metoprolol 50 mg by mouth twice a day; losartan increased to 50 mg daily 8. Hyperlipidemia; Lipitor 40 mg by mouth daily at bedtime 9. Recurrent depression: We will increase Zoloft 150 mg orally once every day as the patient has increased thoughts about and dying. 10. Chronic pain syndrome. Currently on methadone 5 mg orally twice every day. 11. DVT prophylaxis. Bilateral knee-high JOSE hose, continue with Coumadin keep INR 2-3. 12. GI prophylaxis. Continue patient on PPI. CODE STATUS; full code DISCHARGE PLAN Monday Objective - Vital Signs Vital signs: Vital Signs Temp 97.9 F 10/11/20 10:00 Pulse 75 10/11/20 10:00 Resp 22 10/11/20 10:00 BP 146/75 10/11/20 10:00 Pulse Ox 95 10/11/20 07:27 Intake & Output 10/10/20 10/11/20 10/11/20 18:59 06:59 18:59 Output Total 1999 1200 Balance -1999 -1199 Output: Urine 1999 1200 Other: Voiding Method Urinal Urinal # Voids 5 - Labs CBC & Chem 7: 08/14/21 08:18 10/10/20 08:18 Labs: Abnormal Lab Results - Last 24 Hours (Table) 10/10/20 10/10/20 10/10/20 Range/Units 08:18 16:40 20:28 MCHC 30.5 L (31.0-37.0) g/dL Lymphocytes # 0.9 L (1.0-4.8) k/uL PT (9.0-12.0) sec INR (<1.2) POC Glucose (mg/dL) 284 H 216 H (75-99) mg/dL 10/11/20 10/11/20 Range/Units 06:33 06:59 MCHC (31.0-37.0) g/dL Lymphocytes # (1.0-4.8) k/uL PT 31.3 H (9.0-12.0) sec INR 3.3 H (<1.2) POC Glucose (mg/dL) 168 H (75-99) mg/dL
[2020-10-11 11:48] LABS: Glucose,Whole Blood 292 mg/dL (75-99)
[2020-10-11 16:57] LABS: Glucose,Whole Blood 341 mg/dL (75-99)
[2020-10-11] MEDS: MAGNESIUM OXIDE 400 MG TAB PO SCH (17:59)
[2020-10-11] MEDS ORDERED: WARFARIN 0.5 MG TAB PO ONE (18:00)
[2020-10-11 20:36] LABS: Glucose,Whole Blood 415 mg/dL (75-99)
[2020-10-11] MEDS ORDERED: INSULIN ASPART (NovoLOG) 100 UNIT/ML VIAL SQ ONE (20:36)
[2020-10-11] MEDS: MONTELUKAST 10 MG TAB PO SCH (20:58)
[2020-10-11] MEDS: MELATONIN 3 MG TABLET PO SCH (20:58)
[2020-10-11] MEDS: ATORVASTATIN 40 MG TAB PO SCH (20:58)
[2020-10-11] MEDS: INSULIN DETEMIR (LEVEMIR) 100 UNIT/ML SYR SQ SCH (20:58)
[2020-10-12 04:54] LABS: Basophils % (A) 0 %; Eosinophils % (A) 0 %; HCT 47.5 % (39.0-53.0); HGB 14.8 gm/dL (13.0-17.5); Hypochromasia Slight; Lymphocytes # (A) 0.6 k/uL (1.0-4.8); Lymphocytes % (A) 6 %; MCH 28.7 pg (25.0-35.0); MCHC 31.1 g/dL (31.0-37.0); MCV 92.5 fL (80.0-100.0); Mean Platelet Volume 9.1; Monocytes # (A) 0.5 k/uL (0-1.0); Monocytes % (A) 5 %; Neutrophils % (A) 88 %; Platelet Count 234 k/uL (150-450); RBC 5.14 m/uL (4.30-5.90); RDW 13.4 % (11.5-15.5); WBC 10.2 k/uL (3.8-10.6)
[2020-10-12 05:00] LABS: INR 3.3 (<1.2); Prothrombin Time 31.4 sec (9.0-12.0)
[2020-10-12 05:07] LABS: ALT 24 U/L (4-49); AST 29 U/L (17-59); African American GFR (CKD) >90 (>60 ml/min/1.73 sqM); Alkaline Phosphatase 80 U/L (38-126); Anion Gap 4 mmol/L; Blood Urea Nitrogen 40 mg/dL (9-20); Calcium 8.4 mg/dL (8.4-10.2); Carbon Dioxide 35 mmol/L (22-30); Chloride 91 mmol/L (98-107); Globulin 2.9 g/dL; Glucose 185 mg/dL (74-99); Non-African American GFR(CKD) 82 (>60 ml/min/1.73 sqM); Potassium 4.4 mmol/L (3.5-5.1); Sodium 130 mmol/L (137-145); Total Bilirubin 0.6 mg/dL (0.2-1.3); Total Protein 5.9 g/dL (6.3-8.2)
[2020-10-12 07:29] LABS: Glucose,Whole Blood 212 mg/dL (75-99)
--- NOTE | 2020-10-12 08:04 | P.PN ---
Subjective Progress Note Date: 10/12/20 Progress Note Date: 10/12/20 80-year-old gentleman who follows with Dr. Anguiano as his primary care provider. He has a history of atrial fibrillation anticoagulated with warfarin, congestive heart failure, coronary artery disease with previous stent placement, iliac stents, diabetes mellitus, hyperlipidemia, hypertension, CVA/TIA he had recently been here following a fall with left ankle strain and then discharged to [facility] for rehabilitation. Yesterday apparently was having some shortness of breath and hypoxemia and tested positive for COVID-19 and was sent here to the emergency room. He has been maintaining O2 saturation 94% and greater on 2 L nasal cannula. Chest x-ray reveals bilateral infiltrates/atelectasis and possible underlying pulmonary fibrosis. CT angiogram ruled out pulmonary embolism. There is cardiomegaly with pleural fluid and pulmonary infiltrates with some fluid volume overload. 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 White count 3.3. Hemoglobin 14.1. INR 2.9. Sodium 138. Potassium 4.5. Creatinine 0.94. Troponin 0.067, 0.052. ProBNP 9730. Procalcitonin 0.16. LDH 456. C- reactive protein 2.9. 10/04/2020 Patient is seen and evaluated resting comfortably in bed; currently on 2 L of O2 per nasal cannula with O2 saturation above 92% Vital signs are reviewed temperature 98.2, pulse 78, respiration 18 and blood pressure 135/84 Lab review shows a d-dimer of 0.17, WBC 3.3, hemoglobin 14.1, BUN/creatinine of 24/0.94 with elevated BNP of 9730, pro-calcitonin 0.16; blood cultures positive for staph epidermidis; patient is currently on IV vancomycin Patient remains on REM, Decadron 6 mg and Lovenox 40 mg daily Pulmonary on board and recommending to continue to titrate FiO2 down keeping O2 saturation greater than 92% 10/05: Patient has been afebrile, heart rate 75, blood pressure 109/63, pulse ox 96% on 2 L nasal cannula. Repeat blood work reveals INR 1.25. Pharmacy is dosing Coumadin. Sodium 134, potassium 4.4, chloride 92, CO2 38, BUN 30 and creatinine 0.97. Blood sugars are running between 127 and 353. Blood culture is Staphylococcus epidermidis most likely contamination. Patient is stating that his breathing status seems to be improving. He is currently on 2 L nasal cannula. Patient is on Remdesivir day #3/5 and patient is continued on oral Decadron. Discharge plan is to return to [facility] complete his course of subacute rehab. Most likely he will be ready in 48 hours. Midline has been ordered for IV access. 10/06: Patient complains of increasing cough and sputum but unable to bring it up. He states his breathing is not bad today. He does have been notable wheezing. Chest x-ray ordered and oral Lasix changed to IV Lasix 40 mg twice daily. Patient's been afebrile, heart rate 61, blood pressure 126/68, pulse ox 96% on 2 L nasal cannula. INR is 1.4 and pharmacy is dosing his Coumadin. Blood sugars running between 172 and 306. Patient remains on oral dexamethasone, Symbicort and albuterol inhaler, Remdesivir will be completed tomorrow. Most likely patient will be ready for discharge back to [facility] on . 10/07: Patient states he is feeling a little bit better from yesterday. He still has phlegm that he needs to bring up. He denies having any nausea or vomiting. Patient did have a bowel movement yesterday. Lungs sounds are improved from yesterday. Pablo wraps to be applied to the lower extremities. Patient remains afebrile, heart rate 63, blood pressure 141/70, pulse ox 97% on 2 L nasal cannula. Blood sugars are running between 186 and 255. INR 1.9. 10/08: Patient states that he is feeling worse from yesterday. He has continued wheezing and rhonchi. He has been afebrile, heart rate 70, blood pressure 144/97, pulse ox 97% on 2 L nasal cannula. We will increase his losartan to 50 mg daily. Blood sugars are uncontrolled mostly in the 200s up to 292. Levemir will be increased to 38 units at bedtime. Repeat blood work reveals INR 2.3. WBC 6.2, hemoglobin 14.3, platelet count 152. Sodium 134, potassium 4.2, chloride 90, CO2 40, BUN 31 and creatinine 0.93. Liver function tests normal. Patient is day #5/5 of Remdesivir. Patient has been cleared for discharge by pulmonary medicine but we'll plan to monitor the patient another 24 hours. 10/09: Patient feels that his respiratory status is not improving. He is very anxious about returning to [facility]. He voices things like I'm afraid I'm going to or I'm not going to make it. On his last hospitalization he did have an episode of unresponsiveness and received Narcan secondary to methadone. He continues to have cough intermittently with occasional sputum production of white sputum. Patient has been afebrile, heart rate 75, blood pressure 147/79, pulse ox 95% on 2 L nasal cannula. Repeat blood work reveals platelet count 132, WBC 5.9, hemoglobin 13.6. Sodium 133, potassium 4.4, chloride 90, CO2 39, BUN 32 and creatinine 0.82. Blood sugars are running between 130-217. Dexamethasone oral will be changed to Solu-Medrol 40 mg IV every 12 hours, blood sugars will need to be monitored closely and most likely adjustments made to his insulins. He will continue on Lasix 40 mg IV twice daily. Patient has had good urine output. PT and OT have assessed the patient with recommendations for subacute rehab and discharge plan remains to return to [facility] for subacute rehab. 10/10: Patient is sitting up in bed in no apparent distress, is feeling a lot better today he denies any chest pain he is little bit better shortness of breath, he continues to have some cough production, i spoke with his on the phone and gave her an updated about his current condition, patient will be maintained on the same treatment plan, he would be transferred to [facility] on monday. 10/11: Patient sitting up in bed continues to have increased coughing continues to be a bit short of breath, he is requiring 2 L nasal cannula he has no chest pain this time, he has no abdominal pain he has a good bowel movement, patient was supposed to be transferred to [facility] tomorrow morning is currently on Solu- Medrol 40 mg IV push every 12 hours, switch his albuterol to 2 puffs 4 times a day around the clock, continue Symbicort 2 puffs twice every day, monitor the patient for another 24 hours continue Lasix 40 mg IV push every 12 hours, physical therapy evaluation tomorrow morning. 10/12: Patient sitting up but he is complaining of increased nose bleed from the left nostril throughout the night, he denies any chest pain he continues to be somewhat short of breath, is coughing less today, he will be kept in hospital for another 24 hours until his bleeding stops and we will work on discharge him back to [facility] tomorrow morning. Hold his Coumadin for today and recheck his INR tomorrow morning. Review Of Systems: Constitutional: No fever, no chills, no night sweats. No weight change. positive for weakness, positive for fatigue or lethargy. No daytime sleepiness. HEENT: No headache. No blurred vision or double vision, no loss of vision. No loss of Hearing, no ringing in the ears, no dizziness. No nasal drainage or congestion. positive for epistaxis. No sore throat. Lungs: Reports shortness of breath improving, reports cough, reports sputum production. No wheezing. Cardiovascular: No chest pain, positive for lower extremity edema. No palpitations. No paroxysmal nocturnal dyspnea. No orthopnea. No lightheadedness or dizziness. No syncopal episodes. Abdominal: No abdominal pain. No nausea, vomiting. No diarrhea. No constipation. No bloody or tarry stools.. No loss of appetite. Genitourinary: No dysuria, increased frequency, urgency. No urinary retention. Musculoskeletal: No myalgias. positive for muscle weakness, positive for gait dysfunction, positive for frequent falls. No back pain. No neck pain. Integumentary: No wounds, no lesions. No rash or pruritus. Neurologic: No aphasia. No facial droop. No change in mentation. No head injury. No headache.right upper extremity weakness and bilateral lower extremities weakness. Psychiatric: Noted depression. Noted anxiety. Endocrine: Noted abnormal blood sugars with hyperglycemia. PHYSICAL EXAMINATION: GENERAL: The patient is alert and oriented x3, mild respiratory distress. Well developed, well nourished. HEENT: Pupils are round and equally reacting to light. EOMI. No scleral icterus. No conjunctival pallor. Normocephalic, atraumatic. No pharyngeal erythema. No thyromegaly. CARDIOVASCULAR: first heart sound is depressed, second heart sound is normal, irregularly irregular, there is systolic ejection murmur 2/6 left sternal border. PULMONARY: Scattered inspiratory and expiratory wheeze and a few scattered rhonchi. Diminished breath sounds bilateral bases. ABDOMEN: Soft, nontender, nondistended, normoactive bowel sounds. No palpable organomegaly. MUSCULOSKELETAL: No joint swelling or deformity. EXTREMITIES: There is +1 edema, no calf tenderness, dorsalis pedis +1 bilaterally NEUROLOGICAL: Patient is awake alert and oriented 3, cranial nerves III-12 appear grossly intact, muscle power where 3 out of 5 in the right upper extremity and bilateral lower extremities and 4 out of 5 in the left upper extremity, deep tendon reflexes are depressed. SKIN: No rashes. ASSESSMENT AND PLAN 1. Acute hypoxemic respiratory failure secondary to suspected COVID-19 pneumoni a as well as acute exacerbation of systolic heart failure - Pulmonary service on board and patient has been initiated on Remdesivir and completed course; Decadron changed to IV Solu-Medrol 40 mg every 12 hours, continue Lasix 40 mg IV twice daily; anticoagulation with Coumadin; vitamin supplementation with vitamin D and C, continue Symbicort and albuterol inhaler [id number]. 2. Chronic obstructive pulmonary disease, not oxygen dependent; continue with home inhaler therapy 3. Chronic Atrial fibrillation. Continue Coumadin dosed by pharmacy. Continue metoprolol 50 mg twice daily. 4. Coronary artery disease/ischemic cardiomyopathy with previous stent placement; EF 35-40%. Continue Aldactone 12.5 mg daily, Lasix 40 mg IV twice daily, metoprolol, Lipitor 40 mg daily, Plavix 75 mg daily. 5. History of CVA with residual right-sided weakness, stable. 6. Diabetes mellitus type 2, insulin requiring uncontrolled with hyperglycemia. Continue Levemir and 38 units at bedtime, NovoLog 6 units twice daily at lunch and supper, 4 units with breakfast, NovoLog scale before meals and at bedtime. 7. Hypertension; metoprolol 50 mg by mouth twice a day; losartan increased to 50 mg daily 8. Hyperlipidemia; Lipitor 40 mg by mouth daily at bedtime 9. Recurrent depression: We will increase Zoloft 150 mg orally once every day as the patient has increased thoughts about and dying. 10. Chronic pain syndrome. Currently on methadone 5 mg orally twice every day. 11. DVT prophylaxis. Bilateral knee-high JOSE hose, continue with Coumadin keep INR 2-3. 12. GI prophylaxis. Continue patient on PPI. 13. Epistaxis. Discontinue Flonase continue nasal saline spray and continue modified oxygen, hold Coumadin for tonight repeat INR tomorrow morning 14. keep in the hospital for another 24 hours [place] tomorrow morning. CODE STATUS; full code DISCHARGE PLAN on Monday Objective - Vital Signs Vital signs: Vital Signs Temp 98.7 F 10/12/20 05:40 Pulse 73 10/12/20 07:28 Resp 15 10/12/20 07:28 BP 145/78 10/12/20 05:40 Pulse Ox 93 L 10/12/20 05:40 Intake & Output 10/11/20 10/12/20 10/12/20 18:59 06:59 18:59 Output Total 300 Balance -300 Output: Urine 300 Other: Voiding Method Urinal Urinal Urinal # Voids 7 # Bowel Movements 3 - Labs CBC & Chem 7: 10/12/20 04:26 10/12/20 04:26 Labs: Abnormal Lab Results - Last 24 Hours (Table) 10/11/20 10/11/20 10/11/20 Range/Units 11:46 16:55 20:30 Neutrophils # (1.3-7.7) k/uL Lymphocytes # (1.0-4.8) k/uL PT (9.0-12.0) sec INR (<1.2) Sodium (137-145) mmol/L Chloride (98-107) mmol/L Carbon Dioxide (22-30) mmol/L BUN (9-20) mg/dL Glucose (74-99) mg/dL POC Glucose (mg/dL) 292 H 341 H 415 H (75-99) mg/dL Total Protein (6.3-8.2) g/dL Albumin (3.5-5.0) g/dL 10/12/20 10/12/20 10/12/20 Range/Units 04:26 04:26 04:26 Neutrophils # 9.0 H (1.3-7.7) k/uL Lymphocytes # 0.6 L (1.0-4.8) k/uL PT 31.4 H (9.0-12.0) sec INR 3.3 H (<1.2) Sodium 130 L (137-145) mmol/L Chloride 91 L (98-107) mmol/L Carbon Dioxide 35 H (22-30) mmol/L BUN 40 H (9-20) mg/dL Glucose 185 H (74-99) mg/dL POC Glucose (mg/dL) (75-99) mg/dL Total Protein 5.9 L (6.3-8.2) g/dL Albumin 3.0 L (3.5-5.0) g/dL 10/12/20 Range/Units 07:28 Neutrophils # (1.3-7.7) k/uL Lymphocytes # (1.0-4.8) k/uL PT (9.0-12.0) sec INR (<1.2) Sodium (137-145) mmol/L Chloride (98-107) mmol/L Carbon Dioxide (22-30) mmol/L BUN (9-20) mg/dL Glucose (74-99) mg/dL POC Glucose (mg/dL) 212 H (75-99) mg/dL Total Protein (6.3-8.2) g/dL Albumin (3.5-5.0) g/dL
[2020-10-12] MEDS: ALBUTEROL HFA INHALER INHALATION SCH ×4 (08:17→20:36)
[2020-10-12] MEDS: SYMBICORT 160-4.5 MCG INHALER INHALATION SCH ×2 (08:17→20:35)
--- NOTE | 2020-10-12 09:24 | XR ---
EXAMINATION TYPE: XR chest 1V portable DATE OF EXAM: 10/12/2020 HISTORY: Shortness of breath. COMPARISON: 10/06/2020 TECHNIQUE: Single view of the chest is submitted. FINDINGS: Demonstrated are scattered senescent parenchymal change. Patchy perihilar and basilar infiltrates persist with slight interval progression suggested. Progress studies are advised. The heart is stable. Hilar and mediastinal structures are within normal limits. Degenerative changes are seen of the dorsal spine. IMPRESSION: 1. Patchy perihilar and basilar infiltrates persist with slight interval progression suggested. Prog ress studies are advised.
[2020-10-12] MEDS: FUROSEMIDE 40 MG TAB PO SCH (10:05)
[2020-10-12] MEDS: methylPREDNISolone SOD SUCCI 40 MG/ML 1 ML VIAL IV SCH (10:05)
[2020-10-12] MEDS: polyethylene glycoL 3350 17 GM POWD.PACK PO SCH (10:05)
[2020-10-12] MEDS: SERTRALINE 50 MG TAB PO SCH (10:05)
[2020-10-12] MEDS: ASCORBIC ACID 500 MG TAB PO SCH (10:06)
[2020-10-12] MEDS: CHOLECALCIFEROL 25 MCG (1000 IU) TABLET PO SCH (10:06)
[2020-10-12] MEDS: PANTOPRAZOLE 40 MG TABLET PO SCH ×2 (10:06→17:41)
[2020-10-12] MEDS: METOPROLOL TARTRATE 50 MG TAB PO SCH ×2 (10:06→17:41)
[2020-10-12] MEDS: SPIRONOLACTONE 25 MG TAB PO SCH (10:06)
[2020-10-12] MEDS: LOSARTAN 50 MG TAB PO SCH (10:07)
[2020-10-12] MEDS: ZINC SULFATE 220 MG CAP PO SCH (10:07)
[2020-10-12] MEDS: SENNOSIDES-DOCUSATE SODIUM 1 EACH TAB PO SCH ×2 (10:07→17:41)
[2020-10-12] MEDS: POTASSIUM CHLORIDE ER 20 MEQ TAB.ER PO SCH (10:07)
[2020-10-12] MEDS: SIMETHICONE 80 MG CHEWABLE PO SCH ×3 (10:07→17:41)
[2020-10-12] MEDS: INSULIN ASPART (NovoLOG) 100 UNIT/ML VIAL SQ SCH ×6 (10:09→17:42)
[2020-10-12] MEDS: METHADONE 5 MG TAB PO SCH ×2 (10:09→20:24)
[2020-10-12] MEDS: GABAPENTIN 100 MG CAP PO SCH ×2 (10:09→20:24)
[2020-10-12] MEDS: NYSTATIN 100,000UNIT/GM CREAM 30 GM TUBE TOPICAL SCH (10:09)
[2020-10-12] MEDS: NON FORMULARY DRUG (Dapagliflozin Propanediol [Farxiga] 5 MG Tablet) PO SCH (10:32)
[2020-10-12] MEDS: CLOPIDOGREL 75 MG TAB PO SCH (10:32)
[2020-10-12] MEDS: FLUTICASONE 50MCG/SPRAY NASAL 16GM EA NOSTRIL SCH (10:32)
[2020-10-12 11:15] LABS: Glucose,Whole Blood 285 mg/dL (75-99)
[2020-10-12 17:03] LABS: Glucose,Whole Blood 194 mg/dL (75-99)
[2020-10-12] MEDS: MAGNESIUM OXIDE 400 MG TAB PO SCH (17:41)
[2020-10-12] MEDS ORDERED: WARFARIN 0.5 MG TAB PO ONE (18:00)
[2020-10-12 20:21] LABS: Glucose,Whole Blood 222 mg/dL (75-99)
[2020-10-12] MEDS: MELATONIN 3 MG TABLET PO SCH (20:24)
[2020-10-12] MEDS: MONTELUKAST 10 MG TAB PO SCH (20:24)
[2020-10-12] MEDS: INSULIN DETEMIR (LEVEMIR) 100 UNIT/ML SYR SQ SCH (20:24)
[2020-10-12] MEDS: ATORVASTATIN 40 MG TAB PO SCH (20:24)
[2020-10-13 07:12] LABS: Glucose,Whole Blood 84 mg/dL (75-99)
[2020-10-13] MEDS: NYSTATIN 100,000UNIT/GM CREAM 30 GM TUBE TOPICAL SCH ×2 (08:41→09:44)
[2020-10-13] MEDS: METHADONE 5 MG TAB PO SCH (08:42)
[2020-10-13] MEDS: SENNOSIDES-DOCUSATE SODIUM 1 EACH TAB PO SCH (08:42)
[2020-10-13] MEDS: LOSARTAN 50 MG TAB PO SCH (08:43)
[2020-10-13] MEDS: SERTRALINE 50 MG TAB PO SCH (08:43)
[2020-10-13] MEDS: CHOLECALCIFEROL 25 MCG (1000 IU) TABLET PO SCH (08:43)
[2020-10-13] MEDS: GABAPENTIN 100 MG CAP PO SCH (08:43)
[2020-10-13] MEDS: SPIRONOLACTONE 25 MG TAB PO SCH (08:43)
[2020-10-13] MEDS: CLOPIDOGREL 75 MG TAB PO SCH (08:43)
[2020-10-13] MEDS: FUROSEMIDE 40 MG TAB PO SCH (08:43)
[2020-10-13] MEDS: ZINC SULFATE 220 MG CAP PO SCH (08:43)
[2020-10-13] MEDS: SIMETHICONE 80 MG CHEWABLE PO SCH (08:44)
[2020-10-13] MEDS: PANTOPRAZOLE 40 MG TABLET PO SCH (08:44)
[2020-10-13] MEDS: METOPROLOL TARTRATE 50 MG TAB PO SCH (08:44)
[2020-10-13] MEDS: polyethylene glycoL 3350 17 GM POWD.PACK PO SCH (08:44)
[2020-10-13] MEDS: POTASSIUM CHLORIDE ER 20 MEQ TAB.ER PO SCH (08:44)
[2020-10-13] MEDS: ALBUTEROL HFA INHALER INHALATION SCH (08:52)
[2020-10-13] MEDS: SYMBICORT 160-4.5 MCG INHALER INHALATION SCH (08:52)
[2020-10-13] MEDS ORDERED: predniSONE 20 MG TAB PO SCH (09:00)
[2020-10-13] MEDS ORDERED: ASCORBIC ACID 500 MG TAB PO SCH (09:00)
[2020-10-13 09:29] VITALS: BP 138/82; PULSE 79; RESP 20; TEMP 98
[2020-10-13] MEDS: NON FORMULARY DRUG (Dapagliflozin Propanediol [Farxiga] 5 MG Tablet) PO SCH (09:43)
[2020-10-13] MEDS: INSULIN ASPART (NovoLOG) 100 UNIT/ML VIAL SQ SCH ×2 (09:43)
[2020-10-13 10:56] LABS: Basophils # (A) 0.03 X 10*3/uL (0.00-0.10); Basophils % (A) 0.3 %; Eosinophils # (A) 0.18 X 10*3/uL (0.04-0.35); HCT 46.1 % (39.6-50.0); HGB 13.9 g/dL (13.0-17.0); Lymphocytes % (A) 15.6 %; MCH 28.4 pg (27.0-32.0); MCHC 30.2 g/dL (32.0-37.0); MCV 94.1 fL (80.0-97.0); Mean Platelet Volume 11.1 fL (9.5-12.2); Monocytes # (A) 0.95 X 10*3/uL (0.20-1.00); Monocytes % (A) 10.6 %; Neutrophils # (A) 6.35 X 10*3/uL (1.80-7.70); Neutrophils % (A) 70.8 %; Platelet Count 202 X 10*3/uL (140-440); RDW 13.5 % (11.5-14.5); WBC 8.97 X 10*3/uL (4.50-10.00)
[2020-10-13 11:35] LABS: INR 2.4 (0.90-1.11); Prothrombin Time 24.7 sec (9.9-11.9)
[2020-10-13 12:16] LABS: ALT 25 U/L (10-49); AST 24 U/L (14-35); African American GFR (CKD) 74.1 (60.0-200.0); Albumin/Globulin Ratio 1.24 (1.60-3.17); Alkaline Phosphatase 84 U/L (41-126); BUN/Creat Ratio 29.09 Ratio (12.00-20.00); Calcium 8.4 mg/dL (8.7-10.3); Carbon Dioxide >40.0 mmol/L (21.6-31.8); Chloride 94 mmol/L (96-109); Globulin 2.5 g/dL (1.6-3.3); Glucose 76 mg/dL (70-110); Potassium 4.1 mmol/L (3.5-5.5); Sodium 139 mmol/L (135-145); Total Bilirubin 0.7 mg/dL (0.3-1.2); Total Protein 5.6 g/dL (6.2-8.2)
--- NOTE | 2020-10-13 12:29 | P.PN ---
Subjective Progress Note Date: 10/13/20 Principal diagnosis: Shortness of breath, Covid 19 pneumonia This is a very pleasant 80-year-old gentleman who follows with Dr. Anguiano as his primary care provider. He has a history of atrial fibrillation anticoagulated with warfarin, congestive heart failure, coronary artery disease with previous stent placement, iliac stents, diabetes mellitus, hyperlipidemia, hypertension, CVA/TIA he had recently been here following a fall with left ankle strain and then discharged to [facility] for rehabilitation. Yesterday apparently was having some shortness of breath and hypoxemia and tested positive for COVID-19 and was sent here to the emergency room. He has been maintaining O2 saturation 94% and greater on 2 L nasal cannula. Chest x-ray reveals bilateral infiltrates/atelectasis and possible underlying pulmonary fibrosis. CT angiogram ruled out pulmonary embolism. There is cardiomegaly with pleural fluid and pulmonary infiltrates with some fluid volume overload. 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 White count 3.3. Hemoglobin 14.1. INR 2.9. Sodium 138. Potassium 4.5. Creatinine 0.94. Troponin 0.067, 0.052. ProBNP 9730. Procalcitonin 0.16. LDH 456. C-reactive protein 2.9. On 10/04/2020 patient seen in follow-up on medical surgical floor. He is comfo rtable, he is currently on 2 L of oxygen his pulse ox is 95%, he is resting comfortably in bed, he denies any worsening dyspnea, cough, no chest discomfort. Today is day 2 of Remdesivir, he also remains on Decadron 6 mg daily, prophylactic dose of Lovenox 40 mg daily. He is on multiple medications for his multiple chronic medical conditions. His follow-up chest x-ray today shows peripheral scattered infiltrates. It appears that he takes Coumadin for his history of A. fib, we don't have INR from today, his last INR from her yesterday was 2.9. His d-dimer was low at less than 0.17. White count was 3.3, hemoglobin was 14.1. His CO2 was 40, B1 is 24 creatinine was 0.94, and he did have a mild troponin leak, his proBNP was also noted to be quite elevated at 9730, his pro-calcitonin level was negative at 0.16. Blood culture from 10/02/2020 showed Staphylococcus epidermidis, likely contaminant, patient is currently on vancomycin. 10 denies any chest discomfort, no nausea vomiting or diarrhea. On 10/05/2020 patient seen in follow-up on medical surgical floor. He is resting comfortably in bed, presented to liters of oxygen pulse ox is 95-96%, afebrile, hemodynamically stable, lung sounds reveal diminished breath sounds with bibasilar crackles, remains on oral Lasix, he is also on oral Decadron, nebulized bronchodilators. Patient is supposed to get his third Remdesivir treatment today. He is waiting on the midline IV placement. His INR today is 1.25, and pharmacy is dosing his warfarin. From Akira pneumonia perspective his oxygenation has not worsened. He seems to be fairly stable, in no acute respiratory distress, his sodium today is 134, potassium is 4.4, cl 92, CO2 30, B1 is 30 creatinine 0.97. On 10/13/2020 patient seen in follow-up the request of the primary care service again prior to discharge to the [facility]. Patient has been in the hospital for last 9 days, having been admitted for dyspnea related to acute COVID 19 infection, and acute exacerbation of CHF. Patient is awake and alert, in no acute distress he is oriented 3, still has the occasional congested cough, but overall she feels as if he has significantly improved since admission, he is currently on 2 L of oxygen pulse ox is 93%, blood pressure is been stable, he has had no complaint of chest pain, his been afebrile, his chest x-ray from yesterday showed a patchy perihilar and basilar infiltrates with slight interval progression, but clinically patient has remained stable, he is currently on oral prednisone 40 mg daily he is on breathing treatments. He has been transitioned to oral diuretics, 40 mg twice daily, is in negative fluid balance. His labs have been reviewed, white blood cell count is 8.9, hemoglobin is 13.9, INR today is 2.4, sodium is 139, potassium is 4.1, CO2 is 94, and CO2 is greater than 40. His had no acute events overnight, no nausea or vomiting. No abdominal pain. Discharge planning is in progress for discharge to [facility] and rehab. Objective - Vital Signs Vital signs: Vital Signs Temp 98 F 10/13/20 09:28 Pulse 79 10/13/20 09:28 Resp 20 10/13/20 09:28 BP 138/82 10/13/20 09:28 Pulse Ox 93 L 10/13/20 09:28 Intake & Output 10/12/20 10/13/20 10/13/20 18:59 06:59 18:59 Intake Total 500 222 Output Total 825 Balance 500 -603 Intake: Oral 500 222 Output: Urine 825 Other: Voiding Method Urinal Urinal Urinal # Voids 5 - Exam GENERAL EXAM: Alert, very pleasant, 80-year-old white male, currently on 2 L of oxygen pulse ox of 95%, comfortable in no apparent distress. HEAD: Normocephalic/atraumatic. EYES: Normal reaction of pupils, equal size. Conjunctiva pink, sclera white. NOSE: Clear with pink turbinates. THROAT: No erythema or exudates. NECK: No masses, no JVD, no thyroid enlargement, no adenopathy. CHEST: No chest wall deformity. Symmetrical expansion. LUNGS: Equal air entry with no crackles, wheeze, rhonchi or dullness. CVS: Regular rate and rhythm, normal S1 and S2, no gallops, no murmurs, no rubs ABDOMEN: Soft, nontender. No hepatosplenomegaly, normal bowel sounds, no guarding or rigidity. EXTREMITIES: No clubbing, no edema, no cyanosis, 2+ pulses and upper and lower extremities. MUSCULOSKELETAL: Muscle strength and tone normal. SPINE: No scoliosis or deformity SKIN: No rashes CENTRAL NERVOUS SYSTEM: Alert and oriented -3. No focal deficits, tone is normal in all 4 extremities. PSYCHIATRIC: Alert and oriented -3. Appropriate affect. Intact judgment and insight. - Labs CBC & Chem 7: 10/13/20 07:52 10/13/20 07:52 Labs: Abnormal Lab Results - Last 24 Hours (Table) 10/12/20 10/12/20 10/13/20 Range/Units 17:01 20:19 07:52 MCHC 30.2 L (32.0-37.0) g/dL Immature Gran # 0.06 H (0.00-0.04) X 10*3/uL PT (9.9-11.9) sec INR (0.90-1.11) Chloride (96-109) mmol/L Carbon Dioxide (21.6-31.8) mmol/L BUN (9.0-27.0) mg/dL BUN/Creatinine Ratio (12.00-20.00) Ratio POC Glucose (mg/dL) 194 H 222 H (75-99) mg/dL Calcium (8.7-10.3) mg/dL Total Protein (6.2-8.2) g/dL Albumin (3.80-4.90) g/dL Albumin/Globulin Ratio (1.60-3.17) g/dL 10/13/20 10/13/20 Range/Units 07:52 07:52 MCHC (32.0-37.0) g/dL Immature Gran # (0.00-0.04) X 10*3/uL PT 24.7 H (9.9-11.9) sec INR 2.40 H (0.90-1.11) Chloride 94 L (96-109) mmol/L Carbon Dioxide >40.0 H* (21.6-31.8) mmol/L BUN 32.0 H (9.0-27.0) mg/dL BUN/Creatinine Ratio 29.09 H (12.00-20.00) Ratio POC Glucose (mg/dL) (75-99) mg/dL Calcium 8.4 L (8.7-10.3) mg/dL Total Protein 5.6 L (6.2-8.2) g/dL Albumin 3.10 L (3.80-4.90) g/dL Albumin/Globulin Ratio 1.24 L (1.60-3.17) g/dL Assessment and Plan Plan: Assessment: #1. Acute hypoxic respiratory failure secondary to acute exacerbation of systolic CHF, and COVID-19 pneumonia. Patient was diagnosed at [facility], started on Remdesivir treatment on 10/03/2020 #2. History of COPD, not usually oxygen dependent #3. Chronic atrial fibrillation, on Coumadin #4. Coronary artery disease with previous stent placement #5. History of CVA with residual right-sided weakness #6. Ischemic cardiomyopathy with ejection fraction of 35-40% #7. Diabetes multiple starting #8. Recent fall with left ankle sprain #9. Hypertension #10. Hyperlipidemia #11. History of depression #12. Chronic pain syndrome #13. Poor overall functional performance Plan: Continue oral prednisone Continue oral diuretics Chest x-ray has been reviewed Still shows perihilar and basilar infiltrates Clinically stable No worsening dyspnea and hypoxia Continues on oral anticoagulation Stable for discharge to [facility] today I performed a history & physical examination of the patient and discussed their management with my nurse practitioner, Tiffany Clements. I reviewed the nurse practitioner's note and agree with the documented findings and plan of care. Lung sounds are positive for diminished breath sounds.. The findings and the impression was discussed with the patient. I attest to the documentation by the nurse practitioner. Time with Patient: Less than 30
--- NOTE | 2020-10-13 16:26 | P.DS ---
Providers Date of admission: 10/02/20 19:40 Expected date of discharge: 10/13/20 Attending physician: Marylou Anguiano Consults: 10/02/20 19:45 Consult Physician Routine Consulting Provider: Callum Peterson Consult Reason/Comments: covid-19, hypoxemia Do you want consulting provider notified?: Yes Primary care physician: Marylou Anguiano Hospital Course: Progress Note Date: 10/12/20 80-year-old gentleman who follows with Dr. Anguiano as his primary care provider. He has a history of atrial fibrillation anticoagulated with warfarin, congestive heart failure, coronary artery disease with previous stent placement, iliac stents, diabetes mellitus, hyperlipidemia, hypertension, CVA/TIA he had recently been here following a fall with left ankle strain and then discharged to [facility] for rehabilitation. Yesterday apparently was having some shortness of breath and hypoxemia and tested positive for COVID-19 and was sent here to the emergency room. He has been maintaining O2 saturation 94% and greater on 2 L nasal cannula. Chest x-ray reveals bilateral infiltrates/atelectasis and possible underlying pulmonary fibrosis. CT angiogram ruled out pulmonary e mbolism. There is cardiomegaly with pleural fluid and pulmonary infiltrates with some fluid volume overload. 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 White count 3.3. Hemoglobin 14.1. INR 2.9. Sodium 138. Potassium 4.5. Creatinine 0.94. Troponin 0.067, 0.052. ProBNP 9730. Procalcitonin 0.16. LDH 456. C- reactive protein 2.9. 10/04/2020 Patient is seen and evaluated resting comfortably in bed; currently on 2 L of O2 per nasal cannula with O2 saturation above 92% Vital signs are reviewed temperature 98.2, pulse 78, respiration 18 and blood pressure 135/84 Lab review shows a d-dimer of 0.17, WBC 3.3, hemoglobin 14.1, BUN/creatinine of 24/0.94 with elevated BNP of 9730, pro-calcitonin 0.16; blood cultures positive for staph epidermidis; patient is currently on IV vancomycin Patient remains on REM, Decadron 6 mg and Lovenox 40 mg daily Pulmonary on board and recommending to continue to titrate FiO2 down keeping O2 saturation greater than 92% 10/05: Patient has been afebrile, heart rate 75, blood pressure 109/63, pulse ox 96% on 2 L nasal cannula. Repeat blood work reveals INR 1.25. Pharmacy is dosing Coumadin. Sodium 134, potassium 4.4, chloride 92, CO2 38, BUN 30 and creatinine 0.97. Blood sugars are running between 127 and 353. Blood culture is Staphylococcus epidermidis most likely contamination. Patient is stating that his breathing status seems to be improving. He is currently on 2 L nasal cannula. Patient is on Remdesivir day #3/5 and patient is continued on oral Decadron. Discharge plan is to return to [facility] complete his course of subacute rehab. Most likely he will be ready in 48 hours. Midline has been ordered for IV access. 10/06: Patient complains of increasing cough and sputum but unable to bring it up. He states his breathing is not bad today. He does have been notable wheezing. Chest x-ray ordered and oral Lasix changed to IV Lasix 40 mg twice daily. Patient's been afebrile, heart rate 61, blood pressure 126/68, pulse ox 96% on 2 L nasal cannula. INR is 1.4 and pharmacy is dosing his Coumadin. Blood sugars running between 172 and 306. Patient remains on oral dexamethasone, Symbicort and albuterol inhaler, Remdesivir will be completed tomorrow. Most likely patient will be ready for discharge back to [facility] on . 10/07: Patient states he is feeling a little bit better from yesterday. He still has phlegm that he needs to bring up. He denies having any nausea or vomiting. Patient did have a bowel movement yesterday. Lungs sounds are improved from yesterday. Pablo wraps to be applied to the lower extremities. Patient remains afebrile, heart rate 63, blood pressure 141/70, pulse ox 97% on 2 L nasal cannula. Blood sugars are running between 186 and 255. INR 1.9. 10/08: Patient states that he is feeling worse from yesterday. He has continued wheezing and rhonchi. He has been afebrile, heart rate 70, blood pressure 144/97, pulse ox 97% on 2 L nasal cannula. We will increase his losartan to 50 mg daily. Blood sugars are uncontrolled mostly in the 200s up to 292. Levemir will be increased to 38 units at bedtime. Repeat blood work reveals INR 2.3. WBC 6.2, hemoglobin 14.3, platelet count 152. Sodium 134, potassium 4.2, chloride 90, CO2 40, BUN 31 and creatinine 0.93. Liver function tests normal. Patient is day #55 of Remdesivir. Patient has been cleared for discharge by pulmonary medicine but we'll plan to monitor the patient another 24 hours. 10/09: Patient feels that his respiratory status is not improving. He is very anxious about returning to [facility]. He voices things like I'm afraid I'm going to or I'm not going to make it. On his last hospitalization he did have an episode of unresponsiveness and received Narcan secondary to methadone. He cont inues to have cough intermittently with occasional sputum production of white sputum. Patient has been afebrile, heart rate 75, blood pressure 147/79, pulse ox 95% on 2 L nasal cannula. Repeat blood work reveals platelet count 132, WBC 5.9, hemoglobin 13.6. Sodium 133, potassium 4.4, chloride 90, CO2 39, BUN 32 and creatinine 0.82. Blood sugars are running between 130-217. Dexamethasone oral will be changed to Solu-Medrol 40 mg IV every 12 hours, blood sugars will need to be monitored closely and most likely adjustments made to his insulins. He will continue on Lasix 40 mg IV twice daily. Patient has had good urine output. PT and OT have assessed the patient with recommendations for subacute rehab and discharge plan remains to return to [facility] for subacute rehab. 10/10: Patient is sitting up in bed in no apparent distress, is feeling a lot better today he denies any chest pain he is little bit better shortness of breath, he continues to have some cough production, i spoke with his on the phone and gave her an updated about his current condition, patient will be maintained on the same treatment plan, he would be transferred to [facility] hopefully on monday. 10/11: Patient sitting up in bed continues to have increased coughing continues to be a bit short of breath, he is requiring 2 L nasal cannula he has no chest pain this time, he has no abdominal pain he has a good bowel movement, patient was supposed to be transferred to [facility] tomorrow morning is currently on Solu- Medrol 40 mg IV push every 12 hours, switch his albuterol to 2 puffs 4 times a day around the clock, continue Symbicort 2 puffs twice every day, monitor the patient for another 24 hours continue Lasix 40 mg IV push every 12 hours, physical therapy evaluation tomorrow morning. 10/12: Patient sitting up but he is complaining of increased nose bleed from the left nostril throughout the night, he denies any chest pain he continues to be somewhat short of breath, is coughing less today, he will be kept in hospital for another 24 hours until his bleeding stops and we will work on discharge him back to [facility] tomorrow morning. Hold his Coumadin for today and recheck his INR tomorrow morning. Discharge diagnoses: 1. Acute hypoxemic respiratory failure secondary to suspected COVID-19 pneumonia as well as acute exacerbation of systolic heart failure 2. Chronic obstructive pulmonary disease. 3. Chronic Atrial fibrillation. 4. Coronary artery disease/ischemic cardiomyopathy with previous stent placement; EF 35-40%. 5. History of CVA with residual right-sided weakness. 6. Diabetes mellitus type 2, insulin requiring uncontrolled with hyperglycemia. 7. Hypertension 8. Hyperlipidemia 9. Recurrent depression. 10. Chronic pain syndrome. Patient Condition at Discharge: Fair Plan - Discharge Summary Discharge Rx Participant: No New Discharge Prescriptions: New Losartan [Cozaar] 50 mg PO DAILY tab predniSONE [Deltasone] 40 mg PO DAILY tab Zinc Sulfate [Orazinc] 220 mg PO DAILY cap Sertraline [Zoloft] 150 mg PO DAILY@0800 tab Spironolactone [Aldactone] 12.5 mg PO DAILY tab Ascorbic Acid [Vitamin C] 500 mg PO DAILY tab Cholecalciferol [Vitamin D3 (25 Mcg = 1000 Iu)] 25 mcg PO DAILY tablet Continue Magnesium Oxide [Mag-Ox] 250 mg PO DAILY@1700 Nitroglycerin Sl Tabs [Nitrostat] 0.4 mg SUBLINGUAL Q5M PRN PRN Reason: Chest Pain Montelukast [Singulair] 10 mg PO HS@2100 Fluticasone Nasal [place] [Flonase Nasal [place]] 2 spr EA NOSTRIL DAILY@0800 Sennosides-Docusate Sodium [Senokot-S] 2 tab PO BID@0800,1700 Furosemide [Lasix] 40 mg PO BID@0800,1700 Magnesium Hydroxide [Milk of Magnesia] 2,400 mg PO DAILY PRN PRN Reason: Constipation Na Phos,M-B/Na Phos,Di-Ba [Fleet Adult] 133 ml RECTAL DAILY PRN PRN Reason: Constipation Simethicone 80 mg PO TID@0800,1200,1700 Nystatin 100,000Unit/gm Cream [Mycostatin Cream] 1 applic TOPICAL TID INSULIN ASPART (NovoLOG) [NovoLOG (formulary)] See Protocol SQ AC-TID INSULIN ASPART (NovoLOG) [NovoLOG (formulary)] 6 unit SQ BID@1100,1730 Polyethylene Glycol 3350 [Miralax] 17 gm PO DAILY@0800 Dapagliflozin Propanediol [Farxiga] 5 mg PO DAILY@0800 Warfarin [Coumadin] 3 mg PO TUTHSA Clopidogrel [Plavix] 75 mg PO DAILY@0800 Budesonide/Formoterol Fumarate [Symbicort 160-4.5 Mcg Inhaler] 2 puff INHALATION RT-BID@0800,1700 Warfarin Sodium 4 mg PO SUMOWEFR Omeprazole [PriLOSEC] 20 mg PO BID@0800,1700 Ondansetron [Zofran] 4 mg PO Q8H PRN PRN Reason: Nausea bisacodyL [Dulcolax] 10 mg RECTAL DAILY PRN PRN Reason: Constipation Ipratropium-Albuterol Nebulize [Duoneb 0.5 mg-3 mg/3 ml Soln] 3 ml INHALATION RT-Q6H Acetaminophen Tab [Tylenol] 650 mg PO Q4H PRN PRN Reason: GENERAL DISCOMFORT Albuterol Sulfate [Ventolin HFA] 1 puff INHALATION RT-TID Potassium Chloride ER [K-Dur 20] 20 meq PO DAILY@0800 INSULIN ASPART (NovoLOG) [NovoLOG (formulary)] 4 unit SQ DAILY@0700 Metoprolol Tartrate [Lopressor] 50 mg PO BID@0800,1700 Melatonin 3 mg PO HS@2100 Insulin Detemir (Levemir) [Levemir] 35 unit SQ HS@2130 Atorvastatin [Lipitor] 40 mg PO HS@2100 Changed Methadone [Dolophine] 5 mg PO BID@0800,2100 #6 tab Gabapentin [Neurontin] 100 mg PO BID@0800,2100 #60 cap Discontinued Sertraline [Zoloft] 100 mg PO DAILY@0800 traZODone HCL [Desyrel] 50 mg PO HS PRN PRN Reason: Insomnia Losartan [Cozaar] 25 mg PO DAILY@0800 Discharge Medication List Fluticasone Nasal [place] [Flonase Nasal [place]] 2 spr EA NOSTRIL DAILY@0810/31/18 [History] Magnesium Oxide [Mag-Ox] 250 mg PO DAILY@169910/31/18 [History] Montelukast [Singulair] 10 mg PO HS@209910/31/18 [History] Nitroglycerin Sl Tabs [Nitrostat] 0.4 mg SUBLINGUAL Q5M PRN 10/31/18 [History] Sennosides-Docusate Sodium [Senokot-S] 2 tab PO BID@0800,169909/02/19 [History] Budesonide/Formoterol Fumarate [Symbicort 160-4.5 Mcg Inhaler] 2 puff INHALATION RT-BID@0800,169909/04/20 [History] Furosemide [Lasix] 40 mg PO BID@0800,169909/04/20 [History] Omeprazole [PriLOSEC] 20 mg PO BID@0800,169909/04/20 [History] Warfarin Sodium 4 mg PO SUMOWEFR 09/04/20 [History] Acetaminophen Tab [Tylenol] 650 mg PO Q4H PRN 10/02/20 [History] Albuterol Sulfate [Ventolin HFA] 1 puff INHALATION RT-TID 10/02/20 [History] Atorvastatin [Lipitor] 40 mg PO HS@209910/02/20 [History] Clopidogrel [Plavix] 75 mg PO DAILY@0810/02/20 [History] Dapagliflozin Propanediol [Farxiga] 5 mg PO DAILY@0810/02/20 [History] INSULIN ASPART (NovoLOG) [NovoLOG (formulary)] 4 unit SQ DAILY@0700 10/02/20 [History] INSULIN ASPART (NovoLOG) [NovoLOG (formulary)] 6 unit SQ BID@1100,1730 10/02/20 [History] INSULIN ASPART (NovoLOG) [NovoLOG (formulary)] See Protocol SQ AC-TID 10/02/20 [History] Insulin Detemir (Levemir) [Levemir] 35 unit SQ HS@21310/02/20 [History] Ipratropium-Albuterol Nebulize [Duoneb 0.5 mg-3 mg/3 ml Soln] 3 ml INHALATION RT-Q6H 10/02/20 [History] Magnesium Hydroxide [Milk of Magnesia] 2,400 mg PO DAILY PRN 10/02/20 [History] Melatonin 3 mg PO HS@2100 10/02/20 [History] Metoprolol Tartrate [Lopressor] 50 mg PO BID@0800,1700 10/02/20 [History] Na Phos,M-B/Na Phos,Di-Ba [Fleet Adult] 133 ml RECTAL DAILY PRN 10/02/20 [H istory] Nystatin 100,000Unit/gm Cream [Mycostatin Cream] 1 applic TOPICAL TID 10/02/20 [History] Ondansetron [Zofran] 4 mg PO Q8H PRN 10/02/20 [History] Polyethylene Glycol 3350 [Miralax] 17 gm PO DAILY@0800 10/02/20 [History] Potassium Chloride ER [K-Dur 20] 20 meq PO DAILY@0810/02/20 [History] Simethicone 80 mg PO TID@0800,1200,1700 10/02/20 [History] Warfarin [Coumadin] 3 mg PO TUTHSA 10/02/20 [History] bisacodyL [Dulcolax] 10 mg RECTAL DAILY PRN 10/02/20 [History] Ascorbic Acid [Vitamin C] 500 mg PO DAILY tab 10/13/20 [Rx] Cholecalciferol [Vitamin D3 (25 Mcg = 1000 Iu)] 25 mcg PO DAILY tablet 10/13/20 [Rx] Gabapentin [Neurontin] 100 mg PO BID@0800,2100 #60 cap 10/13/20 [Rx] Losartan [Cozaar] 50 mg PO DAILY tab 10/13/20 [Rx] Methadone [Dolophine] 5 mg PO BID@0800,2100 #6 tab 10/13/20 [Rx] Sertraline [Zoloft] 150 mg PO DAILY@0800 tab 10/13/20 [Rx] Spironolactone [Aldactone] 12.5 mg PO DAILY tab 10/13/20 [Rx] Zinc Sulfate [Orazinc] 220 mg PO DAILY cap 10/13/20 [Rx] predniSONE [Deltasone] 40 mg PO DAILY tab 10/13/20 [Rx] Follow up Appointment(s)/Referral(s): Marylou Anguiano MD [Primary Care Provider] - 1-2 days Mikel Del Valle, [NON-STAFF] - As Needed Discharge Disposition: TRANSFER TO SNF/ECF
== END 2020-10-13 11:51 | DRG 177 ==
LOC: EC 15:35 → 4SSUR 19:40
PROVIDERS: ADMIT Internal Medicine; ATTEND Internal Medicine
PROC: XW033E5 Introduction of Remdesivir Anti-infective into Peripheral Vein, Percutaneous Approach, New Technology Group 5 (ICD-10-PCS; principal; 2020-10-02)
PROC: 05HF33Z Insertion of Infusion Device into Left Cephalic Vein, Percutaneous Approach (ICD-10-PCS; 2020-10-05 13:55)
DX: U07.1 COVID-19 (principal); I50.43 Acute on chronic combined systolic (congestive) and diastolic (congestive) heart failure; J12.82 Pneumonia due to coronavirus disease 2019; J96.01 Acute respiratory failure with hypoxia; I69.351 Hemiplegia and hemiparesis following cerebral infarction affecting right dominant side; F33.9 Major depressive disorder, recurrent, unspecified; I48.19 Other persistent atrial fibrillation; J44.0 Chronic obstructive pulmonary disease with (acute) lower respiratory infection; J98.11 Atelectasis; E13.51 Other specified diabetes mellitus with diabetic peripheral angiopathy without gangrene; E78.5 Hyperlipidemia, unspecified; F41.9 Anxiety disorder, unspecified; G89.4 Chronic pain syndrome; I11.0 Hypertensive heart disease with heart failure; I25.10 Atherosclerotic heart disease of native coronary artery without angina pectoris; I25.5 Ischemic cardiomyopathy; I49.3 Ventricular premature depolarization; E13.65 Other specified diabetes mellitus with hyperglycemia; I71.9 Aortic aneurysm of unspecified site, without rupture; J84.10 Pulmonary fibrosis, unspecified; M79.7 Fibromyalgia; Z95.828 Presence of other vascular implants and grafts; R04.0 Epistaxis; R79.1 Abnormal coagulation profile; H40.9 Unspecified glaucoma; T45.515A Adverse effect of anticoagulants, initial encounter; G47.00 Insomnia, unspecified; M19.90 Unspecified osteoarthritis, unspecified site; W19.XXXA Unspecified fall, initial encounter; S93.402A Sprain of unspecified ligament of left ankle, initial encounter; Z79.01 Long term (current) use of anticoagulants; Z79.02 Long term (current) use of antithrombotics/antiplatelets; Z79.4 Long term (current) use of insulin; Z79.51 Long term (current) use of inhaled steroids; Z79.899 Other long term (current) drug therapy; Z95.5 Presence of coronary angioplasty implant and graft; Z98.42 Cataract extraction status, left eye; Z98.41 Cataract extraction status, right eye; Z86.010 Personal history of colon polyps; Z98.890 Other specified postprocedural states; Z80.42 Family history of malignant neoplasm of prostate; Z87.01 Personal history of pneumonia (recurrent)
CPT/HCPCS: 36410; 36415; 71045; 71275; 76937; 80048; 80053; 82728; 83605; 83615; 83735; 83880; 84145; 84484; 85025; 85027; 85379; 85610; 85730; 86140; 87040; 93005; 94640; 94760